=== PATIENT | female | born 1955 | race Caucasian/White ===

== ENCOUNTER → 2016-11-09 | Outpatient (CLI) | payer OTHER ==
--- NOTE | 2016-11-11 09:59 | MM ---
Reason for exam: screening (asymptomatic). Last mammogram was performed 1 year ago. History: Patient is postmenopausal. Took hormonal contraceptives for 6 months beginning at age 19. Physical Findings: A clinical breast exam by your physician is recommended on an annual basis and results should be correlated with mammographic findings. MG Screening Mammo w CAD Bilateral CC and MLO view(s) were taken. Prior study comparison: November 06, 2015, bilateral MG screening mammo w CAD. October 31, 2014, bilateral MG screening mammo w CAD. October 30, 2013, bilateral MG screening mammo w CAD. There are scattered fibroglandular densities. No significant changes when compared with prior studies. ASSESSMENT: Negative, BI-RAD 1 RECOMMENDATION: Routine screening mammogram of both breasts in 1 year.
== END | disposition home or self-care (01) ==
LOC: RADMAMWWP 13:15
PROVIDERS: ATTEND Family Medicine
DX: Z12.31 Encounter for screening mammogram for malignant neoplasm of breast (principal)

== ENCOUNTER → 2017-11-24 | Outpatient (CLI) | payer OTHER ==
--- NOTE | 2017-11-29 13:31 | MM ---
Reason for exam: screening (asymptomatic). Last mammogram was performed 1 year ago. History: Patient is postmenopausal. Took hormonal contraceptives for 6 months beginning at age 19. Physical Findings: A clinical breast exam by your physician is recommended on an annual basis and results should be correlated with mammographic findings. MG Screening Mammo w CAD Bilateral CC and MLO view(s) were taken. Prior study comparison: November 09, 2016, bilateral MG screening mammo w CAD. November 06, 2015, bilateral MG screening mammo w CAD. The breast tissue is heterogeneously dense. This may lower the sensitivity of mammography. No significant changes when compared with prior studies. ASSESSMENT: Benign, BI-RAD 2 RECOMMENDATION: Routine screening mammogram of both breasts in 1 year.
== END | disposition home or self-care (01) ==
LOC: RADMAMWWP 15:25
PROVIDERS: ATTEND Family Medicine
DX: Z12.31 Encounter for screening mammogram for malignant neoplasm of breast (principal)
CPT/HCPCS: 77067

== ENCOUNTER 2018-05-06 14:35 | Inpatient (IN) | payer MEDICARE, OTHER ==
--- NOTE | 2018-05-06 15:08 | XR ---
EXAMINATION TYPE: XR finger RT DATE OF EXAM: 05/06/2018 COMPARISON: NONE HISTORY: Infection third finger for one week with pain. TECHNIQUE: 3 views of right third finger are obtained. FINDINGS: No acute fracture or dislocation is seen. No suspicious cortical destruction or periosteal reaction is seen. Tiny ossific fragment at the ulnar aspect third DIP joint is presumed old avulsion from the middle phalanx with donor site identified. There is mild diffuse soft tissue swelling throug hout the third finger. Incidental note is made of moderate radial narrowing and some ossific formatio n at second DIP joint. IMPRESSION: No radiographic evidence for acute osteomyelitis in the third finger.
--- NOTE | 2018-05-06 16:23 | ED ---
General Adult HPI <Kian Stewart - Last Filed: 05/06/18 19:32> - General Source: patient Mode of arrival: ambulatory Limitations: no limitations <Dea Bo - Last Filed: 05/06/18 20:28> - General Chief complaint: Skin/Abscess/Foreign Body Stated complaint: Infection on finger Time Seen by Provider: 05/06/18 16:13 - History of Present Illness Initial comments: Patient is a 63-year-old female who presents emergency department with complaints of right middle finger discoloration and pain for a bit over a week. She reported that it started as a hangnail. She reports that there was pus draining from it previously but it has become clear drainage. [facility] and was prescribed an antibiotic which she believes was Bactrim. Admits to some numbness of this finger. Denies diabetes or vascular disease. Patient denies any recent fever, chills, shortness of breath, chest pain, back pain, abdominal pain, nausea or vomiting, tingling, headaches or visual changes, or any other complaints. (Dea Bo) - Related Data Home Medications Medication Instructions Recorded Confirmed No Known Home Medications 01/10/15 01/14/15 Allergies Allergy/AdvReac Type Severity Reaction Status Date / Time No Known Allergies Allergy Verified 05/06/18 14:44 Review of Systems ROS Other: All systems not noted in ROS Statement are negative. <Kian Stewart - Last Filed: 05/06/18 19:32> ROS Other: All systems not noted in ROS Statement are negative. <Dea Bo - Last Filed: 05/06/18 20:28> ROS Statement: Those systems with pertinent positive or pertinent negative responses have been documented in the HPI. Past Medical History Additional Past Medical History / Comment(s): hx ulcer History of Any Multi-Drug Resistant Organisms: None Reported Additional Past Surgical History / Comment(s): cataract surgery, surgery for ulcer Past Anesthesia/Blood Transfusion Reactions: No Reported Reaction Past Psychological History: No Psychological Hx Reported Smoking Status: Former smoker Past Alcohol Use History: None Reported Past Drug Use History: None Reported - Past Family History Mother Family Medical History: No Reported History <Dea Bo - Last Filed: 05/06/18 20:28> General Exam Limitations: no limitations General appearance: alert, in no apparent distress Eye exam: Present: normal appearance Respiratory exam: Present: normal lung sounds bilaterally Cardiovascular Exam: Present: regular rate, normal rhythm Extremities exam: Present: full ROM, other (Right middle finger is blue distally ; there is poor cap refill in this finger. No visible drainage.) Neurological exam: Present: alert, oriented X3 <Dea Bo - Last Filed: 05/06/18 20:28> Vital Signs 05/06/18 14:40 Temperature 98.5 F Pulse Rate 86 Respiratory 18 Rate Blood Pressure 133/78 O2 Sat by Pulse 96 Oximetry Medical Decision Making - Lab Data Result diagrams: 05/06/18 18:47 05/06/18 18:47 <Kian Stewart - Last Filed: 05/06/18 19:32> - Lab Data Result diagrams: 05/06/18 18:47 05/06/18 18:47 <Dea Bo - Last Filed: 05/06/18 20:28> - Medical Decision Making I, Murphy Stewart, personally saw and examined the patient. I have reviewed and agree with the PA findings, including all diagnostic interpretations and treatment plans as written unless otherwise stated. I was present for the mejias portions of any procedures performed and the inclusive time noted for any critical care statement. (Kian Stewart) Afebrile here; vital signs within normal limits. No visible abscess. X-ray revealed no evidence for acute osteomyelitis in the third finger. Toradol and morphine (with Zofran) were ordered for pain. Heparin was ordered. EKG was within normal limits. WBC 6.2. Upper extremity CTA was ordered. Patient will be admitted here. Case discussed in detail with attending physician Dr. Stewart. ( Dea Bo) - Lab Data Lab Results 05/06/18 05/06/18 05/06/18 Range/Units 18:47 18:47 18:47 WBC 6.2 (3.8-10.6) k/uL RBC 4.21 (3.80-5.40) m/uL Hgb 13.7 (11.4-16.0) gm/dL Hct 40.3 (34.0-46.0) % MCV 95.8 (80.0-100.0) fL MCH 32.5 (25.0-35.0) pg MCHC 33.9 (31.0-37.0) g/dL RDW 12.6 (11.5-15.5) % Plt Count 323 (150-450) k/uL Neutrophils % 52 % Lymphocytes % 34 % Monocytes % 8 % Eosinophils % 2 % Basophils % 0 % Neutrophils # 3.2 (1.3-7.7) k/uL Lymphocytes # 2.1 (1.0-4.8) k/uL Monocytes # 0.5 (0-1.0) k/uL Eosinophils # 0.1 (0-0.7) k/uL Basophils # 0.0 (0-0.2) k/uL PT 9.9 (9.0-12.0) sec INR 1.0 (<1.2) APTT 27.7 (22.0-30.0) sec Sodium 134 L (137-145) mmol/L Potassium 5.0 (3.5-5.1) mmol/L Chloride 104 (98-107) mmol/L Carbon Dioxide 18 L (22-30) mmol/L Anion Gap 12 mmol/L BUN 19 H (7-17) mg/dL Creatinine 1.12 H (0.52-1.04) mg/dL Est GFR (CKD-EPI)AfAm 60 (>60 ml/min/1.73 sqM) Est GFR (CKD-EPI)NonAf 52 (>60 ml/min/1.73 sqM) Glucose 91 (74-99) mg/dL Calcium 10.0 (8.4-10.2) mg/dL Total Bilirubin 0.5 (0.2-1.3) mg/dL AST 31 (14-36) U/L ALT 34 (9-52) U/L Alkaline Phosphatase 74 (38-126) U/L Troponin I (0.000-0.034) ng/mL Total Protein 7.8 (6.3-8.2) g/dL Albumin 4.6 (3.5-5.0) g/dL 05/06/18 Range/Units 18:47 WBC (3.8-10.6) k/uL RBC (3.80-5.40) m/uL Hgb (11.4-16.0) gm/dL Hct (34.0-46.0) % MCV (80.0-100.0) fL MCH (25.0-35.0) pg MCHC (31.0-37.0) g/dL RDW (11.5-15.5) % Plt Count (150-450) k/uL Neutrophils % % Lymphocytes % % Monocytes % % Eosinophils % % Basophils % % Neutrophils # (1.3-7.7) k/uL Lymphocytes # (1.0-4.8) k/uL Monocytes # (0-1.0) k/uL Eosinophils # (0-0.7) k/uL Basophils # (0-0.2) k/uL PT (9.0-12.0) sec INR (<1.2) APTT (22.0-30.0) sec Sodium (137-145) mmol/L Potassium (3.5-5.1) mmol/L Chloride (98-107) mmol/L Carbon Dioxide (22-30) mmol/L Anion Gap mmol/L BUN (7-17) mg/dL Creatinine (0.52-1.04) mg/dL Est GFR (CKD-EPI)AfAm (>60 ml/min/1.73 sqM) Est GFR (CKD-EPI)NonAf (>60 ml/min/1.73 sqM) Glucose (74-99) mg/dL Calcium (8.4-10.2) mg/dL Total Bilirubin (0.2-1.3) mg/dL AST (14-36) U/L ALT (9-52) U/L Alkaline Phosphatase (38-126) U/L Troponin I <0.012 (0.000-0.034) ng/mL Total Protein (6.3-8.2) g/dL Albumin (3.5-5.0) g/dL Disposition <Kian Stewart - Last Filed: 05/06/18 19:32> Is patient prescribed a controlled substance at d/c from ED?: No <Dea Bo - Last Filed: 05/06/18 20:28> Clinical Impression: Cyanotic fingertip Disposition: ADMITTED IP TO THIS HOSP Referrals: Romel Steen MD [Primary Care Provider] - 1-2 days
[2018-05-06] MEDS ORDERED: KETOROLAC 60 MG/2 ML VIAL IM STA (16:35)
[2018-05-06] MEDS ORDERED: HEPARIN SODIUM,PORCINE 5,000 UNIT/ML 1 ML VIAL IV STA (18:12)
[2018-05-06] MEDS ORDERED: ONDANSETRON 4 MG/2 ML VIAL IVP STA (18:44)
[2018-05-06] MEDS ORDERED: MORPHINE SULFATE 4 MG/ML SYRINGE IV STA (18:44)
[2018-05-06 19:10] LABS: Basophils % (A) 0 %; Eosinophils # (A) 0.1 k/uL (0-0.7); Eosinophils % (A) 2 %; HCT 40.3 % (34.0-46.0); HGB 13.7 gm/dL (11.4-16.0); Lymphocytes # (A) 2.1 k/uL (1.0-4.8); Lymphocytes % (A) 34 %; MCH 32.5 pg (25.0-35.0); MCHC 33.9 g/dL (31.0-37.0); MCV 95.8 fL (80.0-100.0); Mean Platelet Volume 7.7; Monocytes # (A) 0.5 k/uL (0-1.0); Monocytes % (A) 8 %; Neutrophils # (A) 3.2 k/uL (1.3-7.7); Neutrophils % (A) 52 %; Platelet Count 323 k/uL (150-450); RBC 4.21 m/uL (3.80-5.40); RDW 12.6 % (11.5-15.5); WBC 6.2 k/uL (3.8-10.6)
[2018-05-06] MEDS: HEPARIN SOD,PORK IN 0.45% NACL 25,000 UNIT in 0.45% NACL 1 500ML.BAG IV SCH (19:10)
[2018-05-06 19:17] LABS: Albumin 4.6 g/dL (3.5-5.0); Total Bilirubin 0.5 mg/dL (0.2-1.3); Total Protein 7.8 g/dL (6.3-8.2)
[2018-05-06 19:38] LABS: Partial Thromboplastin Time 27.7 sec (22.0-30.0); Prothrombin Time 9.9 sec (9.0-12.0)
[2018-05-06] MEDS ORDERED: ACETAMINOPHEN TAB 325 MG TAB PO PRN (20:18)
[2018-05-06] MEDS ORDERED: NALOXONE 0.4 MG/ML 1 ML VIAL IV PRN (20:18)
--- NOTE | 2018-05-06 20:36 | CONS ---
CONSULTATION This is a 63-year-old female the patient came to the [facility] ER with a history of right hand middle finger discoloration involving the distal phalanx of the right hand. The patient had this discoloration for the last 10 days. Patient went to outpatient clinic for evaluation. Patient was put on antibiotic and her pain and discoloration is getting worse, involving the tip of the right hand middle finger which is cold and tender. The rest of the fingers in the hands are normal color with good capillary refill. MEDICAL HISTORY: No history of diabetes, hypertension. PERSONAL HISTORY: Patient is a has no allergy. Patient is a smoker for a long time. PAST MEDICAL HISTORY: Medical history: No history of coronary artery disease, diabetes, arrhythmia of the heart. PHYSICAL EXAMINATION: NECK: Supple. Trachea central. CHEST: Clear to auscultation. First and second sounds normal. ABDOMEN: Soft. Vascular exam showed femoral pulses are palpable. Axillary, brachial and radial artery palpable on the right hand and the patient has a discoloration of the right hand middle finger. PLAN: The patient will be admitted for anticoagulation and we will do this CTA. CT of the arch of aorta and right arm including subclavian, axillary, brachial, radial, ulnar artery and palm of the arch since this ischemic changes for the last 10 days. Prognosis guarded. She will lose top of middle finger. We will wait for demarcation. We will ask Dr. Knowles, hand surgeon to evaluate in case she needs amputation. MMODL / IJN: [id number] /
--- NOTE | 2018-05-06 20:38 | CT ---
EXAMINATION TYPE: CT angio upper extremity RT DATE OF EXAM: 05/06/2018 8:08 PM COMPARISON: None HISTORY: Discoloration to right 3rd distal phalange CT DLP: 553.4 mGycm Automated exposure control for dose reduction was used. TECHNIQUE: Performed with IV Contrast, patient injected with 100 mL of Isovue 300. . Multiple axial sections were obtained from the base of the neck to the tip of the right fingers with intravenous contrast. There are 3-D post processed images. FINDINGS: There is arterial flow in the innominate artery. There is arterial flow in the right subclavian arter y and axillary artery. There is arterial flow in the brachial artery, radius and ulna arteries. There is arterial flow in the radius and ulna arteries at the wrist. There is arterial opacification of th e palmar arch. There is arterial flow in the digital arteries of the hand. The exam is technically li mited for evaluation of the digital branches at the distal and middle phalanges. There is no evidence of arterial stenosis or dissection. There is no evidence of aneurysm. IMPRESSION: NEGATIVE CT ANGIOGRAM OF THE RIGHT ARM AND HAND. NO EVIDENCE OF STENOSIS.
[2018-05-06 22:21] VITALS: BMI 21.0
[2018-05-07] MEDS: SODIUM CHLORIDE 0.9% 1,000 ML IV SCH ×4 (02:14→21:17)
[2018-05-07 07:56] LABS: Basophils % (A) 1 %; Eosinophils % (A) 1 %; HCT 36.9 % (34.0-46.0); HGB 12.3 gm/dL (11.4-16.0); Lymphocytes # (A) 1.5 k/uL (1.0-4.8); Lymphocytes % (A) 28 %; MCH 32.8 pg (25.0-35.0); MCHC 33.4 g/dL (31.0-37.0); MCV 98.2 fL (80.0-100.0); Mean Platelet Volume 7.5; Monocytes # (A) 0.3 k/uL (0-1.0); Monocytes % (A) 6 %; Neutrophils # (A) 3.1 k/uL (1.3-7.7); Neutrophils % (A) 60 %; Platelet Count 285 k/uL (150-450); RBC 3.76 m/uL (3.80-5.40); RDW 12.7 % (11.5-15.5); WBC 5.2 k/uL (3.8-10.6)
[2018-05-07 07:58] LABS: Albumin 3.5 g/dL (3.5-5.0); Calcium 8.8 mg/dL (8.4-10.2); Potassium 4.8 mmol/L (3.5-5.1); Total Bilirubin 0.4 mg/dL (0.2-1.3); Total Protein 6.3 g/dL (6.3-8.2)
--- NOTE | 2018-05-07 08:55 | PN ---
PROGRESS NOTE 63-year-old female, she came yesterday to the ER with right hand middle finger discoloration with the cold feeling. The patient had this problem for the last 10 days, so we did a CT angiogram of the subclavian and brachial radial arteries were visualized. The exam is technically limited for evaluation of the digit branches at the distal and middle phalanges. On examination today, the patient's right hand middle finger has discoloration is completely gone after heparinization. There is slight redness noted under the nail bed and around the skin area. We will put her on IV antibiotic and continue with heparin. Thank you. MMODL / IJN: [id number] /
[2018-05-07] MEDS: ceFAZolin 1,000 MG in DEXTROSE/WATER 1 50ML.BAG IVPB SCH ×3 (12:00→22:28)
--- NOTE | 2018-05-07 20:19 | HP ---
HISTORY AND PHYSICAL DATE OF ADMISSION: 05/06/2018. DATE OF SERVICE: 05/07/2018. PRESENTING COMPLAINT: Right middle finger distal part pain. HISTORY OF PRESENTING COMPLAINT: This is a pleasant 63-year-old patient who follows with Dr. Steen. Rather unremarkable past medical history. About 10 days ago she started off with a hangnail in the right middle finger and then it became infected. The patient also drained some pus. The patient decided to go down to [facility] where she was told to do Epsom salt moist compression. The patient's tip became discolored, she decided to come to the ER. There were no other fingers involved. The patient does not complain of any claudication or cramps and does not any have any other vascular history. The patient's vascular risk factors also did not include any hypertension, diabetes, or hyperlipidemia. From the ER there was a concern about this being a vascular event. Hence, Dr. Giraldo was consulted and ordered upper extremity CTA that came back to be unremarkable. He empirically put the patient on IV heparin in the meantime. The patient's daughter was at the bedside when I saw this patient this afternoon. Discussed that she is much improved. Pain and tenderness is also improving. The patient was also started on IV Ancef. REVIEW OF SYSTEMS: CONSTITUTIONAL: None. HEENT: None. RESPIRATORY: None. CARDIOVASCULAR: None. GASTROINTESTINAL: None. GENITOURINARY: None. MUSCULOSKELETAL: None. DERMATOLOGICAL: Unremarkable. PSYCHIATRY: None. LYMPHATICS: None. PSYCHIATRY: None. NEUROLOGIC: None. PAST MEDICAL HISTORY: History of ulcers. PAST SURGICAL HISTORY: Cataract surgery, surgery for ulcer. SOCIAL HISTORY: The patient smoked less than a cigarette a day. Has done a few cigarettes a day for most of her life. No alcohol. Lives by herself. FAMILY HISTORY: Reviewed, noncontributory to presentation. HOME MEDICATIONS: 1. PreserVision soft gel 1 capsule p.o. b.i.d. 2. Bactrim DS 1 tablet p.o. b.i.d. 3. Prilosec 20 mg p.o. daily p.r.n. 4. Multivitamin 1 tablet p.o. daily. 5. Bactrim DS 2000 units p.o. daily. ALLERGIES: None. PHYSICAL EXAMINATION: VITAL SIGNS: Vital signs on presentation, temperature 98.5, pulse 86, respiratory rate 18, blood pressure 133/78, pulse ox 96% on room air. GENERAL APPEARANCE: Thin built, sitting up, awake, comfortable. EYES: Pupils equal. Conjunctivae normal. HEENT: External appearance of nose and ears normal. Oral cavity normal. NECK: JVD not raised. Mass not palpable. Respiratory effort normal. LUNGS: Clear. CARDIOVASCULAR: 1st and 2nd sounds. No edema. ABDOMEN: Soft, nontender. Liver and spleen not palpable. LYMPHATIC: No lymph node palpables in the neck or axillae. PSYCHIATRY: Alert and oriented x3. Mood and affect normal. NEUROLOGIC: Pupils equal. Cranial nerves grossly intact. Power and sensation grossly intact. EXTREMITIES: Right hand middle finger showing some tenderness and inflammation around the anterior part of the nail bed where the hangnail was initially present. The patient otherwise has a good capillary. ASSESSMENT: 1. This is a patient who 10 days ago started off with a garage door hanger that became infected, was actually draining some pus. The patient's distal finger also got discolored, mostly likely from local inflammation vascular congestion. These are more features of infection rather than acute ischemic event. The patient does not have any other ischemia presentation anywhere else with minimal cardiac risk factors. There is no hypertension, no hyperlipidemia, no diabetes. The patient is a minimal smoker. Embolic disease cannot be ruled out, but the picture was more compatible with infection. 2. Chronic nicotine dependence. Patient only smokes less than a cigarette a day. 3. IV heparin monitoring. PLAN: Will keep the IV heparin until the patient is further followed by Dr. Giraldo. In the meantime will do warm moist compresses. The patient is already running on IV Ancef. Will add naproxen for anti-inflammatory affect. Will add baby aspirin. I do not think at this point, we are dealing with ischemia. I will discuss this further with Dr. Giraldo. Did discuss this with the patient and daughter. Questions were answered. MMODL / IJN: [id number] /
[2018-05-07] MEDS: HEPARIN SOD,PORK IN 0.45% NACL 25,000 UNIT in 0.45% NACL 1 500ML.BAG IV SCH (22:13)
[2018-05-07] MEDS: FAMOTIDINE 20 MG TAB PO SCH (22:21)
[2018-05-08] MEDS: NAPROXEN 250 MG TAB PO SCH ×3 (00:09→18:19)
[2018-05-08] MEDS: ASPIRIN 81 MG PO SCH ×3 (00:13→21:12)
[2018-05-08] MEDS: NICOTINE 7MG/24HR PATCH TRANSDERM SCH ×2 (00:13→08:19)
[2018-05-08] MEDS: ceFAZolin 1,000 MG in DEXTROSE/WATER 1 50ML.BAG IVPB SCH ×4 (03:55→21:12)
[2018-05-08 08:12] LABS: Anion Gap 2 mmol/L; Blood Urea Nitrogen 9 mg/dL (7-17); Carbon Dioxide 14 mmol/L (22-30); Chloride 125 mmol/L (98-107); Glucose 60 mg/dL (74-99); Potassium 2.9 mmol/L (3.5-5.1); Sodium 141 mmol/L (137-145)
[2018-05-08] MEDS: FAMOTIDINE 20 MG TAB PO SCH ×2 (08:19→21:12)
[2018-05-08 08:47] LABS: Basophils % (A) 0 %; Eosinophils # (A) 0.1 k/uL (0-0.7); Eosinophils % (A) 2 %; HCT 26.7 % (34.0-46.0); Hypochromasia Slight; Lymphocytes # (A) 1.4 k/uL (1.0-4.8); Lymphocytes % (A) 41 %; MCH 31.7 pg (25.0-35.0); MCHC 31.4 g/dL (31.0-37.0); Mean Platelet Volume 7.9; Monocytes # (A) 0.3 k/uL (0-1.0); Monocytes % (A) 7 %; Neutrophils # (A) 1.6 k/uL (1.3-7.7); Neutrophils % (A) 46 %; Platelet Count 180 k/uL (150-450); RBC 2.64 m/uL (3.80-5.40); RDW 12.8 % (11.5-15.5); WBC 3.5 k/uL (3.8-10.6)
[2018-05-08 08:52] LABS: HGB 8.4 gm/dL (11.4-16.0)
[2018-05-08] MEDS ORDERED: POTASSIUM CHLORIDE ER 20 MEQ TAB.ER PO STA (08:56)
[2018-05-08] MEDS ORDERED: POTASSIUM CHLORIDE ER 20 MEQ TAB.ER PO ONE (11:00)
[2018-05-08] MEDS ORDERED: CALCIUM GLUCONATE 2,000 MG in SODIUM CHLORIDE 0.9% 100 ML IVPB ONE (11:31)
--- NOTE | 2018-05-08 14:02 | PN ---
PROGRESS NOTE The patient is a 63-year-old white female. Patient came with to the emergency room with right hand middle finger ischemic and patient started on heparin. On examination today, the middle finger is warm and no evidence of ischemic changes noted. The patient had a CT which was normal. There is still some redness noted around the nail bed, but no fluctuation noted. We will continue with IV antibiotic. We will hold the heparin. MMODL / IJN: [id number] /
[2018-05-08] MEDS ORDERED: MAGNESIUM OXIDE 400 MG TAB PO SCH (16:00)
[2018-05-08] MEDS ORDERED: CALCIUM CARBONATE 500 MG CHEWABLE PO SCH (16:00)
[2018-05-08 16:53] LABS: Ionized Calcium 5.3 mg/dL (4.5-5.3)
[2018-05-08 16:59] LABS: Anion Gap 6 mmol/L; Blood Urea Nitrogen 15 mg/dL (7-17); Calcium 9.4 mg/dL (8.4-10.2); Carbon Dioxide 21 mmol/L (22-30); Chloride 112 mmol/L (98-107); Glucose 99 mg/dL (74-99); Magnesium 2.1 mg/dL (1.6-2.3); Sodium 139 mmol/L (137-145)
[2018-05-08 17:00] LABS: Potassium 5.6 mmol/L (3.5-5.1)
[2018-05-08] MEDS: VERAPAMIL 40 MG TAB PO SCH ×2 (19:34→21:12)
[2018-05-08] MEDS: MAGNESIUM SULFATE-D5W PMX 1 GM in DEXTROSE/WATER 1 100ML.BAG IVPB SCH (19:35)
[2018-05-08] MEDS: SODIUM CHLORIDE 0.9% 1,000 ML IV SCH (19:37)
--- NOTE | 2018-05-08 22:35 | PN ---
PROGRESS NOTE DATE OF SERVICE: 05/08/2018 PRESENTING COMPLAINT: Discoloration right hand middle finger. INTERVAL HISTORY: This patient admitted with what initially appeared to be paronychia, and there was a concern about local vascular disorder. On close questioning, patient does inform that in the Winter, her hand and feet really get cold. She has to use some extra layer of socks. The patient has been on IV heparin. I did talk to Dr. Giraldo this morning. The patient's daughter at the bedside. Some pain and discomfort is present. No fever. No chills. REVIEW OF SYSTEMS: Done for constitutional, cardiovascular, GI, pulmonary and relevant findings as above. CURRENT MEDICATIONS: Reviewed that include IV Ancef and IV heparin was discontinued. PHYSICAL EXAMINATION: VITAL SIGNS: Temperature 98.4, pulse 67, respiratory rate 16, blood pressure 94/59, pulse ox 96% on room air. GENERAL APPEARANCE: Sitting up, awake. EYES: Pupils equal. Conjunctivae normal. HEENT: External appearance of nose and ears normal. Oral cavity normal. NECK: JVD not raised. Mass not palpable. RESPIRATORY: Effort normal. LUNGS are clear. CARDIOVASCULAR: 1st and 2nd sounds normal. No edema. ABDOMEN: Soft, nontender. Liver and spleen not palpable. PSYCHIATRY: Alert and oriented times three. Mood and affect normal. EXTREMITIES: There is discoloration in the right hand 3rd finger just proximal to the nail. Also examined patient's feet again and there is some discoloration distally. Bluish, of both the feet of 1st 3 toes. ASSESSMENT: 1. 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 This is rather classical that the patient has smoked for a long time very small amount and patient does not have any other cardiac risk factors, which is more classical of this presentation. 2. Acute paronychia. 3. Chronic nicotine dependence, patient smokes very little. 4. IV heparin now discontinued. PLAN: I had a very lengthy talk with the patient and daughter and also discussed with Dr. Giraldo again. At this point we will add verapamil for the treatment of same. Increase aspirin to 81 mg twice a day. IV heparin was discontinued. The patient hopefully can be discharged tomorrow. Long-term discussion was also care was discussed with the patient and daughter and Dr. Navas. Total time spent today was about 45 minutes with over 30 minutes of discussion. MMODL / IJN: [id number] /
[2018-05-09] MEDS: NAPROXEN 250 MG TAB PO SCH ×3 (00:23→15:05)
[2018-05-09] MEDS: ceFAZolin 1,000 MG in DEXTROSE/WATER 1 50ML.BAG IVPB SCH ×3 (03:11→14:30)
[2018-05-09] MEDS: NICOTINE 7MG/24HR PATCH TRANSDERM SCH (07:59)
[2018-05-09] MEDS: VERAPAMIL 40 MG TAB PO SCH ×2 (08:03→15:21)
[2018-05-09] MEDS: ASPIRIN 81 MG PO SCH (08:03)
[2018-05-09] MEDS: FAMOTIDINE 20 MG TAB PO SCH (08:03)
[2018-05-09 08:13] LABS: Ionized Calcium 5.5 mg/dL (4.5-5.3)
[2018-05-09 08:15] LABS: Anion Gap 6 mmol/L; Blood Urea Nitrogen 13 mg/dL (7-17); Calcium 9.3 mg/dL (8.4-10.2); Carbon Dioxide 22 mmol/L (22-30); Chloride 112 mmol/L (98-107); Glucose 83 mg/dL (74-99); Magnesium 1.8 mg/dL (1.6-2.3); Potassium 5.5 mmol/L (3.5-5.1); Sodium 140 mmol/L (137-145)
[2018-05-09] MEDS ORDERED: ENOXAPARIN 40 MG/0.4 ML SYRINGE SQ SCH (09:00)
[2018-05-09] MEDS ORDERED: SODIUM POLYSTYRENE SULFONATE 15 GM/60 ML BOTTLE PO STA (11:49)
[2018-05-09 15:08] VITALS: BP 106/71; PULSE 73; RESP 16; TEMP 98.2
--- NOTE | 2018-05-10 07:58 | DS ---
DISCHARGE SUMMARY DATE OF ADMISSION: 05/06/2018 DATE OF DISCHARGE: 05/09/2018 FINAL DIAGNOSES: 1. Acute manifestation of thromboangiitis obliterans in a patient that is a smoker. 2. Acute paronychia right hand middle finger. 3. Chronic nicotine dependence. Patient smokes cigarettes. 4. IV heparin monitoring. 5. Raynaud phenomena. HOSPITAL COURSE: This patient presented with paronychia of the right hand middle finger, also with bluish discoloration with some borderline marking. Patient was found to have also cyanotic toes. The patient's peripheral pulses are good. The patient does really get cold feet in the mo and Raynaud phenomena. The patient is diagnosed to have thromboangiitis obliterans. Paronychia was treated with IV Ancef and patient was initially treated with IV heparin. Patient was put on verapamil for the same. Today care was discussed at length with Dr. Giraldo and patient and the patient's daughter. Questions were answered. PHYSICAL EXAMINATION: On examination, temperature 98.2, pulse 73, respirations 16, blood pressure 106/71. LUNGS: Fair entry. CARDIOVASCULAR: First and second sounds normal. Bluish discoloration of the feet, toes on the medial 3 and patient's paronychia is improving. LABS: Hemoglobin 8.4. Potassium 5.5, Kayexalate was given. The patient also had a upper extremity CT that was unremarkable. Discussion and discharge planning more than 35 minutes. DISCHARGE MEDICATIONS: 1. Multivitamin 1 tablet p.o. daily. 2. Prilosec 20 mg p.o. daily p.r.n. 3. PreserVision Areds 2 one capsule p.o. b.i.d. 4. Aspirin 81 mg p.o. b.i.d. 5. Naproxen 250 mg t.i.d. 14 tablets. 6. Nicotine 7 mg patch daily. 7. Bactrim DS 1 tablet p.o. b.i.d. 8. Isoptin 40 mg p.o. t.i.d. Follow up with Dr. Steen in 3 days. Follow up with Dr. Giraldo. on 05/16/2018. BMP on 05/11/2018, results to Dr. Steen. Also patient told to take a low potassium diet for 3 days. MMODL / IJN: [id number] /
== END 2018-05-09 15:44 | disposition home or self-care (01) | DRG 301 ==
LOC: EC 14:35 → 4SSUR 20:34
PROVIDERS: ADMIT Hospitalist; ATTEND Hospitalist
DX: I73.1 Thromboangiitis obliterans [Buerger's disease] (principal); I73.00 Raynaud's syndrome without gangrene; L03.011 Cellulitis of right finger; F17.210 Nicotine dependence, cigarettes, uncomplicated; Z71.6 Tobacco abuse counseling; Z79.899 Other long term (current) drug therapy; Z98.49 Cataract extraction status, unspecified eye; Z87.11 Personal history of peptic ulcer disease
CPT/HCPCS: 36415; 80048; 80053; 82330; 83735; 84484; 85025; 85610; 85730; 96365; 96366; 96372; 96375; 96376; 99285

== ENCOUNTER → 2018-05-30 | Outpatient (CLI) | payer MEDICARE, OTHER ==
--- NOTE | 2018-05-30 16:52 | BD ---
EXAMINATION TYPE: Axial Bone Density DATE OF EXAM: 05/30/2018 COMPARISON: NONE CLINICAL HISTORY: osteoporosis Height: 5'1 Weight: 113 FRAX RISK QUESTIONS: History of Fracture in Adulthood: y Secondary Osteoporosis: RISK FACTORS HISTORY OF: Postmenopausal woman: y MEDICATIONS: Additional Medications: blood pressure, Additional History: EXAM MEASUREMENTS: Bone mineral densitometry was performed using the [employer] System. Bone mineral density as measured about the Lumbar spine is: ----- L1-L4(G/cm2): 0.796 T Score Values are as follows: ----- L2: -3.5 ----- L3: -2.0 ----- L4: -3.7 ----- L1-L4: -3.2 Bone mineral density about the R hip (g/cm2): 0.663 Bone mineral density about the L hip (g/cm2): 0.686 T Score values are as follows: -----R Neck: -2.7 -----L Neck: -2.5 -----R Total: -3.3 -----L Total: -3.1 IMPRESSION: Osteoporosis (T Score less than -2.5). There is increased fracture risk and therapy is usually indicated based on age. Re-Screen 1-2 years. NOTE: T-SCORE=SD OF THE YOUNG ADULT MEAN.
== END ==
LOC: RADBDWWP 13:21
PROVIDERS: ATTEND Family Medicine
DX: M81.0 Age-related osteoporosis without current pathological fracture (principal)
CPT/HCPCS: 77080

== ENCOUNTER → 2018-08-09 | Outpatient (CLI) | payer MEDICARE, OTHER | END | disposition home or self-care (01) | LOC: CPPFTMAIN 13:26 | PROVIDERS: ATTEND Internal Medicine Rheumatology | DX: J44.9 Chronic obstructive pulmonary disease, unspecified (principal); M34.9 Systemic sclerosis, unspecified | CPT/HCPCS: 94060; 94726; 94729 ==

== ENCOUNTER → 2018-08-15 | Outpatient (CLI) | payer MEDICARE, OTHER ==
--- NOTE | 2018-08-16 11:41 | ECHOF ---
Referral Reason:M34.9 Systemic sclerosis, unspecified MEASUREMENTS -------- HEIGHT: 157.5 cm WEIGHT: 52.2 kg BP: RVIDd: 2.5 cm (< 3.3) IVSd: 0.9 cm (0.6 - 1.1) LVIDd: 3.3 cm (3.9 - 5.3) LVPWd: 1.0 cm (0.6 - 1.1) IVSs: 1.5 cm LVIDs: 1.8 cm LVPWs: 1.6 cm LAESV Index (A-L): 19.97 ml/m Ao Diam: 2.9 cm (2.0 - 3.7) AV Cusp: 1.5 cm (1.5 - 2.6) LA Diam: 3.0 cm (2.7 - 3.8) MV EXCURSION: 15.336 mm (> 18.000) MV EF SLOPE: 93 mm/s (70 - 150) EPSS: 0.4 cm MV E Vinh: 0.71 m/s MV DecT: 209 ms MV A Vinh: 0.87 m/s MV E/A Ratio: 0.82 AR PHT: 340 ms RAP: 5.00 mmHg RVSP: 37.96 mmHg FINDINGS -------- Sinus rhythm. This was a technically good study. The left ventricular size is normal. Left ventricular wall thickness is normal. Overall left vent ricular systolic function is normal with, an EF between 55 - 60 %. The right ventricle is normal in size. Normal LA size by volume 22+/-6 ml/m2. The right atrium is normal in size. Aortic valve is trileaflet and is mildly thickened. There is mild aortic regurgitation. The mitral valve leaflets are mildly thickened. Mild mitral regurgitation is present. Mild tricuspid regurgitation present. The right ventricular systolic pressure, as measured by Doppl er, is 37.96mmHg. Pulmonic valve appears structurally normal. The aortic root size is normal. Normal inferior vena cava with normal inspiratory collapse consistent with estimated right atrial pre ssure of 5 mmHg. The pericardium is normal. CONCLUSIONS -------- 1. Sinus rhythm. 2. This was a technically good study. 3. The left ventricular size is normal. 4. Left ventricular wall thickness is normal. 5. Overall left ventricular systolic function is normal with, an EF between 55 - 60 %. 6. The right ventricle is normal in size. 7. Normal LA size by volume 22+/-6 ml/m2. 8. The right atrium is normal in size. 9. There is mild aortic regurgitation. 10. The mitral valve leaflets are mildly thickened. 11. Mild mitral regurgitation is present. 12. Mild tricuspid regurgitation present. 13. The right ventricular systolic pressure, as measured by Doppler, is 37.96mmHg. 14. Pulmonic valve appears structurally normal. 15. The aortic root size is normal. 16. Normal inferior vena cava with normal inspiratory collapse consistent with estimated right atrial pressure of 5 mmHg. 17. The pericardium is normal. PAPER MILL MANAGER: Kathia Khan RDCS
== END | disposition home or self-care (01) ==
LOC: RADECHMAIN 15:03
PROVIDERS: ATTEND Internal Medicine Rheumatology
DX: I08.3 Combined rheumatic disorders of mitral, aortic and tricuspid valves (principal); M34.9 Systemic sclerosis, unspecified
CPT/HCPCS: 93306

== ENCOUNTER → 2022-02-13 | Outpatient (CLI) | payer MEDICARE, OTHER ==
--- NOTE | 2022-02-13 15:50 | BD ---
EXAMINATION TYPE: Axial Bone Density DATE OF EXAM: 02/13/2022 COMPARISON: NONE CLINICAL HISTORY: 67 years year old Female. ICD-10 CODE: M81.0 AGE-RELATED OSTEOPOROSIS Height: 62 Weight: 111.9 FRAX RISK QUESTIONS: Alcohol (3 or more units per day): no Family History (Parent hip fracture): no Glucocorticoids (More than 3mos): no (Ex: prednisone, prednisolone, methylprednisolone, dexamethasone, and hydrocortisone). History of Fracture in Adulthood: yes Secondary Osteoporosis: 1. Type 1 Diabetes: no 2. Hyperthyroidism: no 3. Menopause before 45: yes 4. Malnutrition: no 5. Chronic liver disease: no Rheumatoid Arthritis: no Current Tobacco Use: no RISK FACTORS HISTORY OF: Surgery to Spine/Hip(right/left)/Wrist (right/left): no Family History of Osteoporosis: no Active: yes Diet low in dairy products/other sources of calcium: yes Postmenopausal woman: yes Lost more than 2 inches in height since high school: no MEDICATIONS: Osteoporosis Medications: alendronate How Lon years Additional Medications: Additional History: EXAM MEASUREMENTS: Bone mineral densitometry was performed using the 5by System. Bone mineral density as measured about the Lumbar spine is: ----- L1-L4(G/cm2): 0.843 T Score Values are as follows: ----- L1: -3.5 ----- L2: -3.2 ----- L3: -1.4 ----- L4: -3.4 ----- L1-L4: -2.8 Bone mineral density : previous unavailable Bone mineral density about the R hip (g/cm2): 0.715 Bone mineral density about the L hip (g/cm2): 0.686 T Score values are as follows: -----R Neck: -2.3 -----L Neck: -2.5 -----R Total: -3.2 -----L Total: -3.0 Bone mineral density : previous unavailable FRAX%s: The graph provided illustrates a 20.5% chance for a major osteoporotic fx and a 5.5% chance f or the hips probability for fx in 10 years time. IMPRESSION: Osteoporosis (T Score less than -2.5). There is increased fracture risk and therapy is usually indicated based on age. Re-Screen 1-2 years. NOTE: T-SCORE=SD OF THE YOUNG ADULT MEAN.
== END | disposition home or self-care (01) ==
LOC: RADBDWWP 15:25
PROVIDERS: ATTEND Family Medicine
DX: M81.0 Age-related osteoporosis without current pathological fracture (principal)
CPT/HCPCS: 77080

== ENCOUNTER → 2022-09-03 | Outpatient (CLI) | payer MEDICARE, OTHER ==
--- NOTE | 2022-09-04 10:25 | CA ---
Transthoracic Echo Report Name: Lyubov Hanna Age: 67 Gender: F : 1955 Exam Date: 09/03/2022 13:12 Exam Location: [facility] Ht (in): 62 Wt (lb): 117 Ordering Physician: Shyla Kaur MD Attending/Referring Phys: Vincent Mansfield;[id number] [facility] Krystal Forrester RDCS Procedure CPT: Indications: M34.9 Cardiac Hx: Technical Quality: Fair Contrast 1: Total Dose (mL): Contrast 2: Total Dose (mL): MEASUREMENTS (Male / Female) Normal Values 2D ECHO LV Diastolic Diameter PLAX 3.3 cm 4.2 - 5.9 / 3.9 - 5.3 cm LV Systolic Diameter PLAX 2.0 cm IVS Diastolic Thickness 1.1 cm 0.6 - 1.0 / 0.6 - 0.9 cm LVPW Diastolic Thickness 1.2 cm 0.6 - 1.0 / 0.6 - 0.9 cm LV Relative Wall Thickness 0.7 RV Internal Dim ED PLAX 3.3 cm M-MODE Aortic Root Diameter MM 2.3 cm LA Systolic Diameter MM 3.9 cm LA Ao Ratio MM 1.7 AV Cusp Separation MM 1.5 cm DOPPLER AV Peak Velocity 148.4 cm/s AV Peak Gradient 8.8 mmHg AV Mean Velocity 104.0 cm/s AV Mean Gradient 4.8 mmHg AV Velocity Time Integral 27.8 cm AI Peak Velocity 389.3 cm/s AI Peak Gradient 60.6 mmHg AI Pressure Half Time 578.4 ms LVOT Peak Velocity 139.7 cm/s LVOT Peak Gradient 7.8 mmHg MV Area PHT 2.8 cm??? Mitral E Point Velocity 65.8 cm/s Mitral A Point Velocity 90.1 cm/s Mitral E to A Ratio 0.7 MV Deceleration Time 267.4 ms MV E' Velocity 11.3 cm/s Mitral E to MV E' Ratio 5.8 TR Peak Velocity 277.0 cm/s TR Peak Gradient 30.7 mmHg Right Ventricular Systolic Press 35.7 mmHg FINDINGS Left Ventricle Mildly increased septal wall thickness. Mildly increased posterior wall thickness. Normal left ventricular systolic function with no obvious regional wall motion abnormalities. Left ventricular ejection fraction is estimated at 5-60 %. Right Ventricle Normal right ventricular size and function. Mild pulmonary hypertension. Right Atrium Normal right atrial size. Left Atrium Normal left atrial size. Mitral Valve Structurally normal mitral valve. Mild mitral annular calcification. Mild mitral regurgitation. Aortic Valve Trileaflet aortic valve. Diffuse thickening (sclerosis) of the aortic valve cusps without reduced excursion. Aortic valve sclerosis. No aortic stenosis. Mild aortic regurgitation. Tricuspid Valve Structurally normal tricuspid valve. Mild tricuspid regurgitation. Pulmonic Valve Structurally normal pulmonic valve. Trace pulmonic regurgitation. Pericardium No pericardial effusion. Aorta Normal size aortic root and proximal ascending aorta. CONCLUSIONS Normal biventricular systolic function Normal mitral valve leaflets with mild MR Aortic sclerosis with no stenosis but with mild regurgitation Previewed by: Dr. Justin Vasquez MD (Electronically Signed) Final Date: 04 September 2022 10:24
== END | disposition home or self-care (01) ==
LOC: RADECHMAIN 13:58
PROVIDERS: ATTEND Internal Medicine Rheumatology
DX: I35.8 Other nonrheumatic aortic valve disorders (principal); M34.9 Systemic sclerosis, unspecified
CPT/HCPCS: 93306

== ENCOUNTER 2023-04-12 12:46 | Inpatient (IN) | payer MEDICARE, OTHER ==
[2023-04-12] MEDS ORDERED: MORPHINE SULFATE 4 MG/ML SYRINGE IM STA (13:24)
--- NOTE | 2023-04-12 13:26 | ED ---
General Adult HPI - General Chief complaint: Fall Stated complaint: Fall-hip injury Time Seen by Provider: 04/12/23 12:53 Source: patient, EMS, RN notes reviewed Mode of arrival: EMS Limitations: no limitations - History of Present Illness Initial comments: Patient is a pleasant 68-year-old female presenting to the emergency department with a fall. Patient was seen by her chair when she slipped and fell. Patient landed on her left hip. Patient does have discomfort of her left hip since that time. Discomfort is greatly increased with any movement of the left hip. No head injury or loss of consciousness. Patient states she did feel slightly di zzy earlier. - Related Data Home Medications Medication Instructions Recorded Confirmed Cholecalciferol (Vitamin D3) 2,000 unit PO DAILY 05/06/18 05/06/18 [Vitamin D3] Multivitamins, Thera [Multivitamin 1 tab PO DAILY 05/06/18 05/06/18 (formulary)] Omeprazole Magnesium [PriLOSEC OTC] 20 mg PO DAILY PRN 05/06/18 05/06/18 Vit C/E/Zn/Coppr/Lutein/Zeaxan 1 cap PO BID 05/06/18 05/06/18 [Preservision Areds 2 Softgel] Previous Rx's Medication Instructions Recorded Aspirin 81 mg PO BID chew 05/09/18 Naproxen [Naprosyn] 250 mg PO TID #14 tab 05/09/18 Nicotine 7Mg/24Hr Patch [Habitrol] 1 patch TRANSDERM DAILY #30 patch 05/09/18 Sulfamethox-Tmp 800-160Mg [Bactrim 1 tab PO BID #20 tab 05/09/18 DS 800-160 mg] Verapamil [Isoptin] 40 mg PO TID #90 tab 05/09/18 Allergies Allergy/AdvReac Type Severity Reaction Status Date / Time No Known Allergies Allergy Verified 04/12/23 13:00 Review of Systems ROS Statement: Those systems with pertinent positive or pertinent negative responses have been documented in the HPI. ROS Other: All systems not noted in ROS Statement are negative. Constitutional: Denies: fever Eyes: Denies: eye pain ENT: Denies: ear pain Respiratory: Denies: cough, dyspnea Cardiovascular: Denies: chest pain Gastrointestinal: Denies: abdominal pain Genitourinary: Denies: dysuria Musculoskeletal: Reports: as per HPI Neurological: Denies: headache, weakness Past Medical History Additional Past Medical History / Comment(s): hx ulcer History of Any Multi-Drug Resistant Organisms: None Reported Additional Past Surgical History / Comment(s): cataract surgery, surgery for ulcer Past Anesthesia/Blood Transfusion Reactions: No Reported Reaction Past Psychological History: No Psychological Hx Reported Past Alcohol Use History: None Reported Past Drug Use History: None Reported - Past Family History Mother Family Medical History: No Reported History General Exam Limitations: no limitations General appearance: alert, in no apparent distress Head exam: Present: atraumatic, normocephalic Eye exam: Present: normal appearance, PERRL, EOMI ENT exam: Present: normal oropharynx Neck exam: Present: normal inspection. Absent: tenderness Respiratory exam: Present: normal lung sounds bilaterally Cardiovascular Exam: Present: regular rate, normal rhythm Expanded Peripheral pulses: 2+: Posterior Tibialis (R), Posterior Tibialis (L) GI/Abdominal exam: Present: soft. Absent: tenderness Extremities exam: Present: tenderness (Left anterior and lateral hip. Left leg is crossed over the right leg. Patient is unwilling to move it. Distally the extremity is neurovascularly intact.) Neurological exam: Present: alert, CN II-XII intact. Absent: motor sensory deficit Psychiatric exam: Present: normal affect, normal mood Skin exam: Present: normal color Course Vital Signs 04/12/23 04/12/23 04/12/23 12:54 14:12 14:39 Temperature 98.1 F Pulse Rate 82 76 74 Respiratory 18 18 18 Rate Blood Pressure 90/38 96/62 102/45 O2 Sat by Pulse 95 97 96 Oximetry EKG Findings - EKG Results: EKG: interpreted by ERMD (Low QRS voltage.), sinus rhythm, normal axis, normal ST/T Medical Decision Making - Medical Decision Making Was pt. sent in by a medical professional or institution (, PA, DICTAPHONE MECHANIC, urgent care, hospital, or care home...) When possible be specific @ -No Did you speak to anyone other than the patient for history (EMS, parent, family, police, friend...)? What history was obtained from this source @ -No Did you review nursing and triage notes (agree or disagree)? Why? @ -I reviewed and agree with nursing and triage notes Were old charts reviewed (outside hosp., previous admission, EMS record, old EKG, old radiological studies, urgent care reports/EKG's, care home records)? Report findings @ -No old charts were reviewed Differential Diagnosis (chest pain, altered mental status, abdominal pain women, abdominal pain men, vaginal bleeding, weakness, fever, dyspnea, syncope, headache, dizziness, GI bleed, back pain, seizure, CVA, palpatations, mental health, musculoskeletal)? @ -Differential Musculoskeletal Muscular strain, contusion, ligament sprain, fracture, arthritis, septic arthritis, bursitis, cellulitis, muscle spasm, nerve compression, DVT, arterial occlusion, herpes zoster, electrolyte abnormality, tumor.... This is not meant to be in all inclusive list EKG interpreted by me (3pts min.). @ -As above X-rays interpreted by me (1pt min.). @ -Chest x-ray shows no acute process. X-ray left elbow shows left IT fracture. CT interpreted by me (1pt min.). @ -None done U/S interpreted by me (1pt. min.). @ -None done What testing was considered but not performed or refused? (CT, X-rays, U/S, labs)? Why? @ -None What meds were considered but not given or refused? Why? @ -None Did you discuss the management of the patient with other professionals (professionals i.e. , PA, DICTAPHONE MECHANIC, lab, RT, psych nurse, director of social services, feeder catcher, teacher, community cultural development officer, case management director)? Give summary @ -Case discussed with orthopedics, neck branch who recommends medicine admission and they will consult. Dr. Muñoz has been paged. Was smoking cessation discussed for >3mins.? @ -No Was critical care preformed (if so, how long)? @ -No Were there social determinants of health that impacted care today? How? (Homelessness, low income, unemployed, alcoholism, drug addiction, transportat ion, low edu. Level, literacy, decrease access to med. care, snf, rehab)? @ -No Was there de-escalation of care discussed even if they declined (Discuss DNR or withdrawal of care, Hospice)? DNR status @ -No What co-morbidities impacted this encounter? (DM, HTN, Smoking, COPD, CAD, Cancer, CVA, ARF, Chemo, Hep., AIDS, mental health diagnosis, sleep apnea, morbid obesity)? @ -None Was patient admitted / discharged? Hospital course, mention meds given and route, prescriptions, significant lab abnormalities, going to OR and other pertinent info. @ -Patient reevaluated and updated. Patient will be admitted for care of fracture. Admission orders written. Undiagnosed new problem with uncertain prognosis? @ -No Drug Therapy requiring intensive monitoring for toxicity (Heparin, Nitro, Insulin, Cardizem)? @ -No Were any procedures done? @ -No Diagnosis/symptom? @ -Left IT hip fracture Acute, or Chronic, or Acute on Chronic? @ -Acute Uncomplicated (without systemic symptoms) or Complicated (systemic symptoms)? @ -default Side effects of treatment? @ -No Exacerbation, Progression, or Severe Exacerbation? @ -No Poses a threat to life or bodily function? How? (Chest pain, [place], [place], pneumonia, PE, COPD, DKA, ARF, appy, cholecystitis, CVA, Diverticulitis, Homicidal, Suicidal, threat to staff... and all critical care pts) @ -No - Lab Data Result diagrams: 04/12/23 14:34 04/12/23 14:34 Disposition Clinical Impression: Intertrochanteric fracture of left hip Disposition: ADMITTED IP TO THIS HOSP Is patient prescribed a controlled substance at d/c from ED?: No Time of Disposition: 14:19
--- NOTE | 2023-04-12 14:10 | XR ---
EXAMINATION TYPE: XR Hip LT and AP Pelvis DATE OF EXAM: 04/12/2023 2:00 PM CLINICAL INDICATION:Female, 68 years old with history of fall; COMPARISON: None. TECHNIQUE: XR Hip LT and AP Pelvis; hip was examined in the frontal and lateral projections and a AP pelvis. FINDINGS/IMPRESSION: Proximal left intertrochanteric fracture with shortening. Remainder of the pelvis appears intact.
--- NOTE | 2023-04-12 14:12 | XR ---
EXAMINATION TYPE: XR chest 1V DATE OF EXAM: 04/12/2023 2:05 PM CLINICAL INDICATION:Female, 68 years old with history of FALL WITH FRACTURE; [facility] COMPARISON: None TECHNIQUE: XR chest 1V Frontal view of the chest. FINDINGS: Lungs/Pleura: There is flattening of the diaphragm with increased lucency of the lungs. No evidence o f pneumothorax, pleural effusion or focal consolidation. Pulmonary vascularity: Unremarkable. Heart/mediastinum: Cardiomediastinal silhouette is unremarkable. Musculoskeletal: No acute osseous pathology. IMPRESSION: 1. No acute cardiopulmonary disease process. 2. COPD changes.
[2023-04-12] MEDS ORDERED: ACETAMINOPHEN TAB 325 MG TAB PO PRN (14:21)
[2023-04-12] MEDS ORDERED: NALOXONE 0.4 MG/ML 1 ML VIAL IV PRN (14:21)
[2023-04-12] MEDS ORDERED: MORPHINE SULFATE 2 MG/ML SYRINGE IVP STA (14:36)
[2023-04-12] MEDS: SODIUM CHLORIDE 0.9% 1,000 ML IV SCH (14:44)
[2023-04-12 14:45] LABS: Anisocytosis Slight; Basophils % (A) 0 %; Eosinophils % (A) 0 %; HCT 31.2 % (34.0-46.0); HGB 10.3 gm/dL (11.4-16.0); Lymphocytes # (A) 0.3 k/uL (1.0-4.8); Lymphocytes % (A) 14 %; MCH 34.6 pg (25.0-35.0); MCHC 32.9 g/dL (31.0-37.0); MCV 105.3 fL (80.0-100.0); Macrocytosis Moderate; Mean Platelet Volume 7.8; Monocytes % (A) 1 %; Neutrophils # (A) 1.5 k/uL (1.3-7.7); Neutrophils % (A) 83 %; Platelet Count 379 k/uL (150-450); RBC 2.96 m/uL (3.80-5.40); RDW 17.4 % (11.5-15.5); WBC 1.8 k/uL (3.8-10.6)
[2023-04-12 15:00] LABS: Prothrombin Time 10.9 sec (10.0-12.5)
[2023-04-12 15:09] LABS: ALT 47 U/L (4-34); African American GFR (CKD) >90 (>60 ml/min/1.73 sqM); Albumin 2.9 g/dL (3.5-5.0); Anion Gap 6 mmol/L; Blood Urea Nitrogen 16 mg/dL (7-17); Calcium 7.9 mg/dL (8.4-10.2); Carbon Dioxide 24 mmol/L (22-30); Chloride 102 mmol/L (98-107); Glucose 94 mg/dL (74-99); Non-African American GFR(CKD) >90 (>60 ml/min/1.73 sqM); Sodium 132 mmol/L (137-145); Total Bilirubin 0.6 mg/dL (0.2-1.3); Total Protein 5.4 g/dL (6.3-8.2)
[2023-04-12 15:16] LABS: AST 51 U/L (14-36); Alkaline Phosphatase 72 U/L (38-126); Potassium 4.6 mmol/L (3.5-5.1)
[2023-04-12] MEDS ORDERED: diazePAM 2 MG TAB PO PRN (16:04)
--- NOTE | 2023-04-12 16:11 | P.HPOR ---
History of Present Illness H&P Date: 04/12/23 Chief Complaint: Left intertrochanteric femur fracture Patient is a 68-year-old female who presented to [facility] for evaluation of a left lower extremity injury. Patient was standing in her kitchen when she became dizzy, she went to sit down and tripped and fell landing on her left side. Patient was unable to weight-bear after the incident, she was brought to the hospital by EMS. Imaging test and lab tests were done, images did reveal a displaced left intertrochanteric femur fracture. I was contacted by the emergency room staff regarding the patient. I was able to review the images and discuss the case with my attending Dr. Nova. Patient was admitted to the hospital with plan for surgical intervention, internal medicine was also placed on for medical management. Patient was evaluated today at bedside, there was family members present. Patient notes most discomfort in the left lower extremity with movement. She has no other orthopedic complaints at this time. She states she's had a previous fracture in her left foot, she denies any previous surgery to the left lower extremity. Patient normally utilizes no assistive devices for ambulation. She notes most discomfort in the proximal aspect of the left lower extremity with movement. Patient denies any loss of bowel or bladder function. She denies any numbness or tingling in the bilateral upper or lower extremities. Review of Systems Constitutional: Reports as per HPI Past Medical History Additional Past Medical History / Comment(s): hx ulcer History of Any Multi-Drug Resistant Organisms: None Reported Additional Past Surgical History / Comment(s): cataract surgery, surgery for ulcer Past Anesthesia/Blood Transfusion Reactions: No Reported Reaction Past Psychological History: No Psychological Hx Reported Past Alcohol Use History: None Reported Past Drug Use History: None Reported - Past Family History Mother Family Medical History: No Reported History Medications and Allergies Home Medications Medication Instructions Recorded Confirmed Type Multivitamins, Thera [Multivitamin 1 tab PO DAILY 05/06/18 04/12/23 History (formulary)] Vit C/E/Zn/Coppr/Lutein/Zeaxan 1 cap PO DAILY 05/06/18 04/12/23 History [Preservision Areds 2 Softgel] Calcium Carbonate/Vitamin D3 1 cap PO DAILY 04/12/23 04/12/23 History [Calcium 600 mg-D3 10 Mcg (400 Iu)] Folic Acid 1 mg PO DAILY 04/12/23 04/12/23 History NIFEdipine XL [Procardia XL] 60 mg PO DAILY 04/12/23 04/12/23 History Unknown Infusion Or Injection 1 dose IV DIRECTED 04/12/23 04/12/23 History metHOTREXate sodium 25 mg PO WE 04/12/23 04/12/23 History Allergies Allergy/AdvReac Type Severity Reaction Status Date / Time No Known Allergies Allergy Verified 04/12/23 15:38 Physical Examination Left lower extremity: Obvious shortening and external rotation of the extremity is noted when compared to the contralateral side No obvious open lesions or sores are visualized throughout the extremity, no areas of erythema Tenderness to palpation noted to the proximal femur, she is nontender with palpation surrounding the knee, lower leg, foot or ankle Patient is unable to straight leg raise, logroll maneuver reproduces pain. Plantar flexion, dorsiflexion, EHL, FHL are intact. Passive range of motion of the knee is intact, active motion does reproduce pain in the hip. Strength testing was not assessed due to pain in the left lower extremity Calf is soft, no tenderness with palpation Sensory exam to light touch is intact throughout the extremity Dorsalis pedis pulses 2+ Results - Labs Labs: Abnormal Lab Results - Last 24 Hours (Table) 04/12/23 04/12/23 Range/Units 14:34 14:34 WBC 1.8 L (3.8-10.6) k/uL RBC 2.96 L (3.80-5.40) m/uL Hgb 10.3 L (11.4-16.0) gm/dL Hct 31.2 L (34.0-46.0) % MCV 105.3 H (80.0-100.0) fL RDW 17.4 H (11.5-15.5) % Lymphocytes # 0.3 L (1.0-4.8) k/uL Sodium 132 L (137-145) mmol/L Creatinine 0.49 L (0.52-1.04) mg/dL Calcium 7.9 L (8.4-10.2) mg/dL AST 51 H (14-36) U/L ALT 47 H (4-34) U/L Total Protein 5.4 L (6.3-8.2) g/dL Albumin 2.9 L (3.5-5.0) g/dL H & H 04/12/23 Range/Units 14:34 Hgb 10.3 L (11.4-16.0) gm/dL Hct 31.2 L (34.0-46.0) % Coagulation 04/12/23 Range/Units 14:34 INR 1.0 (<1.2) Result Diagrams: 04/12/23 14:34 04/12/23 14:34 - Diagnostic results Hip x-ray: report reviewed, image reviewed (AP pelvis along with 2 views of the left hip were reviewed. Images demonstrated a displaced left intertrochanteric femur fracture. The hip joint remains intact.) Assessment and Plan Assessment: Displaced left intertrochanteric femur fracture Status post fall from standing Other medical comorbidities Plan: I was able to discuss the case, this including the physical exam findings and imaging studies my attending Dr. Nova. We will proceed with surgical intervention, more specifically insertion of an intramedullary nail for the left femur. Surgery scheduled for 04/13/2023 Risk and benefits of the procedure were discussed with the patient, this including but not excluded blood loss, neurovascular injury, infection, devel opment blood clots, inadequate healing of bone, need for subsequent surgery, pain and stiffness. Patient is in good understanding and would like to proceed with surgery. Consent will be obtained prior to procedure Nothing by mouth after midnight Urinary catheter placement DVT prophylaxis, we'll begin subcu medication after surgery Pain control, multiple oral medications have been ordered, also utilize Valium 2 mg twice a day as needed for anxiety. IV pain medication is also available PT/OT evaluation after surgery Nonweightbearing left lower extremity at this time Medical recommendations appreciated Recommendations to follow Time with Patient: Less than 30
[2023-04-12] MEDS: MORPHINE SULFATE 4 MG/ML SYRINGE IV PRN ×2 (17:05→20:35)
[2023-04-12 18:10] LABS: Appearance,Urine Slightly Cloudy (Clear); Color,Urine Yellow; Hyaline Casts,Urine 10 /lpf (0-2); Mucus,Urine Few /hpf; RBC,Urine 1 /hpf (0-5); Specific Gravity,Urine >1.030 (1.001-1.035); Squamous Epithelial Cell,Urine <1 /hpf (0-4); WBC,Urine 1 /hpf (0-5)
[2023-04-12 18:11] LABS: Bilirubin,Urine Negative (Negative); Blood,Urine Negative (Negative); Glucose,Urine (UA) Negative (Negative); Ketones,Urine 2+ (Negative); Leukocyte Esterase,Urine Negative (Negative); Nitrite,Urine Negative (Negative); PH, Urine 5.5 (5.0-8.0); Protein,Urine 1+ (Negative); Urobilinogen,Urine <2.0 mg/dL (<2.0)
[2023-04-12] MEDS: ONDANSETRON 4 MG/2 ML VIAL IVP PRN (20:07)
[2023-04-12] MEDS: HYDROcodone/APAP 5-325MG 1 EACH TAB PO PRN (23:08)
[2023-04-13] MEDS: MORPHINE SULFATE 4 MG/ML SYRINGE IV PRN ×4 (01:03→20:00)
[2023-04-13] MEDS: traMADol 50 MG TAB PO PRN (03:20)
[2023-04-13] MEDS: SODIUM CHLORIDE 0.9% 1,000 ML IV SCH ×2 (03:22→20:05)
[2023-04-13] MEDS ORDERED: LIDOCAINE 1% (10MG/ML) FOR IV START INTRADERMA PRN (06:08)
[2023-04-13] MEDS ORDERED: droPERidol 5 MG/2 ML VIAL IVP ONE (06:08)
[2023-04-13] MEDS ORDERED: ONDANSETRON 4 MG/2 ML VIAL IVP ONE (06:08)
[2023-04-13] MEDS ORDERED: LACTATED RINGERS 1,000 ML IV SCH (06:08)
[2023-04-13] MEDS ORDERED: DEXAMETHASONE SOD PHOSPHATE 4 MG/ML 1 ML VIAL IV ONE (06:08)
[2023-04-13] MEDS ORDERED: HYDROmorphone 0.5 MG/0.5 ML SYRINGE IVP PRN (07:00)
[2023-04-13] MEDS ORDERED: NON FORMULARY DRUG (Vit C/E/Zn/Coppr/Lutein/Zeaxan [Preservision Areds 2 Softgel] 1 EACH C PO SCH (09:00)
[2023-04-13] MEDS: MULTIVITAMINS, THERA 1 EACH TAB PO SCH (09:54)
[2023-04-13] MEDS: FOLIC ACID 1 MG TAB PO SCH (09:54)
[2023-04-13] MEDS: CALCIUM CARB-VIT D 500 MG-5 MCG TAB PO SCH (09:54)
[2023-04-13] MEDS: HYDROcodone/APAP 5-325MG 1 EACH TAB PO PRN ×2 (10:11→21:57)
[2023-04-13] MEDS: ONDANSETRON 4 MG/2 ML VIAL IVP PRN ×2 (10:14→17:01)
[2023-04-13 12:38] VITALS: BMI 17.9
--- NOTE | 2023-04-13 15:47 | PN ---
PROGRESS NOTE CHIEF COMPLAINT: Fracture of left hip. HISTORY OF PRESENT ILLNESS: This lady is going to surgery at 4 o'clock. She has had an echocardiogram, the results are pending. She cannot have a CTA of the head and neck. A carotid ultrasound would be helpful. I will clear her for surgery, but the possibility of aortic stenosis and/or carotid occlusive disease increases her risk slightly. These studies should be completed in the next day or so, however. She is cleared for surgery for ORIF of the left hip. MMODL / IJN: [id number] /
--- NOTE | 2023-04-13 17:26 | P.CONS ---
History of Present Illness - Reason for Consult Consult date: 04/13/23 bicytopenia Requesting physician: Benny Muñoz - Chief Complaint fall, lt hip fracture - History of Present Illness Patient is a pleasant 68-year-old female admitted to the hospital after slip and fall, landing on her left hip, discomfort since that time. She is being currently worked up to be medically cleared for orthopedic intervention. Hematology is been asked to see the patient because of low white blood cell count, 1.8 on admission, ANC is within normal limits, absolute lymphocyte count is low at 0.3. Also, anemia, hemoglobin 10.3. She reports that she takes 25 mg of methotrexate PO every Wednesday for Raynaud's disease. She is on monthly injection for osteoporosis. She received a Covid vaccine last week. She denies any unusual symptoms or side effects post vaccine. On chart review on a previous admission patient's counts were slightly off at that time as well, despite his severe as this time. Patient denies ever being told she had low counts before. No fevers, chills, respiratory symptoms, nausea, vomiting, acute changes in bowel or bladder habits, or bleeding reported. Review of Systems 10 point ROS is neg except as stated in HPI Past Medical History Additional Past Medical History / Comment(s): hx ulcer, Raynauds, History of Any Multi-Drug Resistant Organisms: None Reported Additional Past Surgical History / Comment(s): cataract surgery, surgery for ulcer Past Anesthesia/Blood Transfusion Reactions: No Reported Reaction Past Psychological History: No Psychological Hx Reported Smoking Status: Former smoker Past Alcohol Use History: None Reported Past Drug Use History: None Reported - Past Family History Mother Family Medical History: No Reported History Medications and Allergies Home Medications Medication Instructions Recorded Confirmed Type Multivitamins, Thera [Multivitamin 1 tab PO DAILY 05/06/18 04/12/23 History (formulary)] Vit C/E/Zn/Coppr/Lutein/Zeaxan 1 cap PO DAILY 05/06/18 04/12/23 History [Preservision Areds 2 Softgel] Calcium Carbonate/Vitamin D3 1 cap PO DAILY 04/12/23 04/12/23 History [Calcium 600 mg-D3 10 Mcg (400 Iu)] Folic Acid 1 mg PO DAILY 04/12/23 04/12/23 History NIFEdipine XL [Procardia XL] 60 mg PO DAILY 04/12/23 04/12/23 History Romosozumab-Aqqg [Evenity] 210 mg SQ Q30D 04/12/23 04/12/23 History metHOTREXate sodium 25 mg PO WE 04/12/23 04/12/23 History Allergies Allergy/AdvReac Type Severity Reaction Status Date / Time No Known Allergies Allergy Verified 04/12/23 15:38 Physical Exam Vitals: Vital Signs Temp Pulse Pulse Resp BP BP Pulse Ox 04/13/23 07:13 98.4 F 85 17 108/57 92 L 04/13/23 02:00 99.0 F 91 15 96/53 93 L 04/12/23 20:00 99.2 F 92 16 117/66 93 L 04/12/23 18:20 99.1 F 99 17 131/65 89 L 04/12/23 17:28 90 20 104/53 96 04/12/23 17:01 75 20 92/65 94 L 04/12/23 16:33 90 20 95/52 93 L 04/12/23 14:39 74 18 102/45 96 04/12/23 14:12 76 18 96/62 97 Intake and Output 04/12/23 04/13/23 04/13/23 22:59 06:59 14:59 Other: Voiding Method Indwelling Catheter Indwelling Catheter Weight 44.452 kg 44.452 kg - Constitutional General appearance: average body habitus, cooperative, no acute distress - EENT Eyes: anicteric sclerae, EOMI ENT: hearing grossly normal - Respiratory resp even and unlabored at rest - Cardiovascular skin warm and dry to touch leg Peripheral Edema: bilateral: None - Gastrointestinal General gastrointestinal: soft - Integumentary Integumentary: normal - Neurologic Neurologic: CNII-XII intact (grossly) - Psychiatric Psychiatric: A&O x's 3, appropriate affect, intact judgment & insight Results CBC & Chem 7: 04/12/23 14:34 04/12/23 14:34 Labs: Abnormal Lab Results - Last 24 Hours (Table) 04/12/23 04/12/23 04/12/23 Range/Units 14:34 14:34 17:25 WBC 1.8 L (3.8-10.6) k/uL RBC 2.96 L (3.80-5.40) m/uL Hgb 10.3 L (11.4-16.0) gm/dL Hct 31.2 L (34.0-46.0) % MCV 105.3 H (80.0-100.0) fL RDW 17.4 H (11.5-15.5) % Lymphocytes # 0.3 L (1.0-4.8) k/uL Sodium 132 L (137-145) mmol/L Creatinine 0.49 L (0.52-1.04) mg/dL Calcium 7.9 L (8.4-10.2) mg/dL AST 51 H (14-36) U/L ALT 47 H (4-34) U/L Total Protein 5.4 L (6.3-8.2) g/dL Albumin 2.9 L (3.5-5.0) g/dL Urine Appearance Slightly Cloudy H (Clear) Urine Protein 1+ H (Negative) Urine Ketones 2+ H (Negative) Hyaline Casts 10 H (0-2) /lpf Urine Mucus Few H (None) /hpf Assessment and Plan (1) Raynaud disease Current Visit: Yes Status: Chronic Priority: Medium Code(s): I73.00 - RAYNAUD'S SYNDROME WITHOUT GANGRENE SNOMED Code(s): 510315390 (2) Bicytopenia Current Visit: Yes Status: Acute Priority: High Code(s): D75.89 - OTHER SPECIFIED DISEASES OF BLOOD AND BLOOD-FORMING ORGANS SNOMED Code(s): 99335862 Plan: Raynaud's disease -Treated by Rheumatology -Takes 25 mg by mouth of methotrexate every Wednesday -Takes folic acid 1 mg by mouth daily-cont -Stat methotrexate level ordered -Hold methotrexate while inpatient, and until CBC is recovered Bicytopenia -Suspect secondary to treatment with marrow suppressive methotrexate, exacerbated by acute stress of femur fracture -Hemoglobin 10.3. This is adequate for orthopedic surgical procedure from a Hematology standpoint. Surgeon preference always prevails -WBC 1.8, normal ANC of 1.5, ALC decreased at 0.3. No need to postpone surgical intervention, ANC is adequate. -CBC Daily while inpatient -Transfuse for hemoglobin less than 7 -Will monitor ANC, if it falls below 1000 will initiate G-CSF
[2023-04-13] MEDS ORDERED: NALOXONE 0.4 MG/ML 1 ML VIAL IV PRN (18:27)
--- NOTE | 2023-04-13 18:27 | P.OP ---
Date of Procedure: 04/13/23 Preoperative Diagnosis: Left hip intertrochanteric fracture Postoperative Diagnosis: Left hip intertrochanteric fracture Procedure(s) Performed: Trochanteric nailing left hip intertrochanteric fracture Implants: Arthrex short trochanteric nail 10 mm with 130 angle 90 mm lag screw and a 5.0 30 mm distal locking screw Anesthesia: SARITA Surgeon: Ortiz Nova [employer] Offset Press Feeder #1: Justin Dior Estimated Blood Loss (ml): 15 Pathology: none sent Condition: stable Disposition: PACU Indications for Procedure: 5-year-old patient was seen with a left hip intertrochanteric fracture. I recommended trochanteric nailing. Patient was agreeable. Consent was obtained. Preoperative medical clearance was provided. Operative Findings: See description of procedure Description of Procedure: Patient was taken to the operative suite. She underwent a general anesthetic by the primary a calvin. She was transferred to the fracture table. She received preoperative IV antibiotics. The right lower extremity was placed in well- padded well-leg petty and the left lower chest placed in standard longitudinal traction with slight adduction and internal rotation. I brought the C-arm into the operative field and noted adequate reduction of the fracture. The C-arm was pulled back. Left hip was prepped and draped in the normal sterile orthopedic fashion. The C-arm was brought back into the operative field. I made an incision just proximal to the greater trochanter sharply through skin. I dissected down to the IT band an incision through that. I now placed a guidewire through the greater trochanter. I inserted a guidewire into the proximal femoral canal. I confirmed that AP and lateral intraoperative imaging. I now repaired our entry reamer over the guidewire and entry reamed into the greater trochanter. I now chose a short 10 mm Arthrex one [address] I place over the guidewire and tapped that down into the proximal femur. I confirmed position on AP and lateral intraoperative imaging. We now used the outrigger and introduced our guide for the compression screw. An incision was made laterally and the guide was placed down communicating to the lateral cortex of the bone. That was confirmed under imaging. A guidewire was now inserted into the head neck complex confirming that under AP and lateral intraoperative imaging. We now depth gauge that followed by reaming and then introduced a 90 mm compression screw with good fixation noted. We now compressed the fracture and secured that compression screw. Once it was locked the cannula and guide were removed. We noted adequate positioning of our compression screw and the femoral head. We now placed a cannula into the static distal locking outrigger guide. An incision was made through the skin and the guide was placed making contact with the bone laterally. We now drilled through our distal locking screw hole. We now introduced a 5 x 30 mm distal locking screw with good fixa tion noted. I now removed the entire outrigger. The entire construct was visualized under AP and lateral intraoperative imaging. We had good reduction of the fracture and excellent placement of our trochanteric nail and femoral head screw. We irrigated all wounds copiously. The IT bands were repaired with #1 Vicryl. The subcu soft tissues repaired to a Vicryl. Skin margins were approximated with malena. Sterile dressings were applied. The patient was awakened, transferred to a bed and recovery stable condition. Julian WEBER assisted in all aspects of this procedure.
--- NOTE | 2023-04-13 18:33 | XR ---
Intraoperative/procedural fluoroscopic services were provided. Total fluoroscopy time is 53.7 seconds with a total of 5 submitted images to PACS. Please see the operative/procedural note for further det ails. DAP: 1.4674 Gycm2
[2023-04-13] MEDS: SENNOSIDES-DOCUSATE SODIUM 1 EACH TAB PO SCH (20:01)
[2023-04-14] MEDS: MORPHINE SULFATE 4 MG/ML SYRINGE IV PRN ×4 (00:43→18:01)
[2023-04-14] MEDS: ONDANSETRON 4 MG/2 ML VIAL IVP PRN (01:50)
[2023-04-14] MEDS: SODIUM CHLORIDE 0.9% 1,000 ML IV SCH ×2 (02:00→13:53)
[2023-04-14] MEDS: traMADol 50 MG TAB PO PRN (02:26)
[2023-04-14 08:02] LABS: Anisocytosis Slight; Basophils % (A) 1 %; Eosinophils % (A) 2 %; HCT 26.4 % (34.0-46.0); Hypochromasia Slight; Lymphocytes # (A) 0.2 k/uL (1.0-4.8); Lymphocytes % (A) 10 %; MCH 35.7 pg (25.0-35.0); MCHC 33.1 g/dL (31.0-37.0); Macrocytosis Marked; Mean Platelet Volume 8.5; Monocytes % (A) 1 %; Neutrophils # (A) 1.7 k/uL (1.3-7.7); Neutrophils % (A) 86 %; Platelet Count 242 k/uL (150-450); RBC 2.44 m/uL (3.80-5.40); RDW 18.2 % (11.5-15.5); WBC 1.9 k/uL (3.8-10.6)
[2023-04-14 08:03] LABS: HGB 8.7 gm/dL (11.4-16.0)
[2023-04-14] MEDS: FOLIC ACID 1 MG TAB PO SCH (08:30)
[2023-04-14] MEDS: CALCIUM CARB-VIT D 500 MG-5 MCG TAB PO SCH (08:30)
[2023-04-14] MEDS: MULTIVITAMINS, THERA 1 EACH TAB PO SCH (08:30)
[2023-04-14] MEDS: ENOXAPARIN 40 MG/0.4 ML SYRINGE SQ SCH (08:31)
[2023-04-14] MEDS ORDERED: ENOXAPARIN 40 MG/0.4 ML SYRINGE SQ SCH (09:00)
--- NOTE | 2023-04-14 10:08 | CA ---
Transthoracic Echo Report Name: Lyubov Hanna Age: 68 Gender: F : 1955 Exam Date: 04/13/2023 12:04 Exam Location: [facility] Ht (in): 62 Wt (lb): 98 Ordering Physician: Benny Muñoz MD Attending/Referring Phys: Toni GOLD Park Keeper Booker Adrian Procedure CPT: Indications: Syncope, murmur Cardiac Hx: Technical Quality: Fair Contrast 1: Total Dose (mL): Contrast 2: Total Dose (mL): MEASUREMENTS (Male / Female) Normal Values 2D ECHO LV Diastolic Diameter PLAX 4.1 cm 4.2 - 5.9 / 3.9 - 5.3 cm LV Systolic Diameter PLAX 2.5 cm IVS Diastolic Thickness 0.9 cm 0.6 - 1.0 / 0.6 - 0.9 cm LVPW Diastolic Thickness 1.0 cm 0.6 - 1.0 / 0.6 - 0.9 cm LV Relative Wall Thickness 0.5 RV Internal Dim ED PLAX 2.8 cm LVOT Diameter 1.8 cm Aortic Root Diameter 2.6 cm LA Systolic Diameter LX 2.4 cm 3.0 - 4.0 / 2.7 - 3.8 cm LV Diastolic Volume MOD BP 32.9 cm??? 67 - 155 / 56 - 104 cm??? LV Systolic Volume MOD BP 10.7 cm??? 22 - 58 / 19 - 49 cm??? LV Ejection Fraction MOD BP 67.3 % >= 55 % LV Cardiac Index MOD BP 1355.4 cm???/min???m??? LV Diastolic Volume MOD 4C 33.8 cm??? LV Systolic Volume MOD 4C 10.6 cm??? LV Ejection Fraction MOD 4C 68.8 % LV Cardiac Index MOD 4C 1426.1 cm???/min???m??? LV Diastolic Length 4C 6.5 cm LV Systolic Length 4C 5.6 cm LV Diastolic Volume MOD 2C 30.0 cm??? LV Systolic Volume MOD 2C 10.4 cm??? LV Ejection Fraction MOD 2C 65.5 % LV Cardiac Index MOD 2C 1204.4 cm???/min???m??? LV Diastolic Length 2C 6.1 cm LV Systolic Length 2C 5.2 cm LA Volume 30.7 cm??? 18 - 58 / 22 - 52 cm??? LA Volume Index 22.2 cm???/m??? 16 - 28 cm???/m??? DOPPLER AV Peak Velocity 185.8 cm/s AV Peak Gradient 13.8 mmHg AI Peak Velocity 354.1 cm/s AI Peak Gradient 50.2 mmHg AI Pressure Half Time 517.6 ms LVOT Peak Velocity 150.9 cm/s LVOT Peak Gradient 9.1 mmHg LVOT Velocity Time Integral 28.9 cm LVOT Stroke Volume 71.8 cm??? LVOT Stroke Volume Index 50.9 ml/m??? LVOT Cardiac Index 4400.7 cm???/min???m??? AV Area Cont Eq pk 2.0 cm??? MV Peak Velocity 110.8 cm/s MV Peak Gradient 4.9 mmHg MV Mean Velocity 59.1 cm/s MV Mean Gradient 1.7 mmHg MV Velocity Time Integral 33.1 cm MR Peak Velocity 292.4 cm/s MR Peak Gradient 34.2 mmHg Mitral E Point Velocity 89.1 cm/s Mitral A Point Velocity 82.6 cm/s Mitral E to A Ratio 1.1 MV Deceleration Time 196.5 ms MV E' Velocity 10.4 cm/s Mitral E to MV E' Ratio 8.6 TR Peak Velocity 303.6 cm/s TR Peak Gradient 36.9 mmHg Right Ventricular Systolic Press 42.0 mmHg PV Peak Velocity 152.8 cm/s PV Peak Gradient 9.3 mmHg FINDINGS Left Ventricle Normal LV size and wall thickness. Left ventricular ejection fraction is estimated at 65-70 %. Right Ventricle Normal right ventricular size. RVSP= 46 mmHg. Right Atrium Normal right atrial size. Left Atrium Normal left atrial size. LA volume index= 22ml/m2 Mitral Valve Structurally normal mitral valve. Trace MR. Aortic Valve Trileaflet aortic valve. Mild AV calcifiction/sclerosis. Mild AI. Tricuspid Valve Structurally normal tricuspid valve. Moderate TR Pulmonic Valve Pulmonic valve not well visualized. No pulmonic regurgitation. Pericardium No pericardial effusion Aorta Normal size aortic root. CONCLUSIONS Normal LV size and systolic function. LVEF estimated at 65% No obvious regional wall motion abnormality Normal LV size and function. RVSP estimated at 46mmHg Mild aortic regurgitation Previewed by: Dr Montana Membreno (Electronically Signed) Final Date: 14 April 2023 10:07
--- NOTE | 2023-04-14 11:01 | P.PN ---
Subjective Progress Note Date: 04/14/23 Principal diagnosis: status post intramedullary nail left intertrochanteric femur fracture Patient was evaluated today at bedside, she is resting comfortably, she has family present at bedside. Patient is eager to work with physical therapy. Urinary catheter is in place at this time. Pain is currently controlled with medications. Hemoglobin did drop a little bit overnight, we are starting ferrous sulfate 325 mg twice a day today. Patient is scheduled for a CT angiography later this morning. Both internal medicine and hematology/oncology are following the patient. Currently has no headaches, lightheadedness, chest pain or shortness of breath Objective - Vital Signs Vital signs: Vital Signs Temp 98 F 04/14/23 07:23 Pulse 88 04/14/23 07:23 Resp 17 04/14/23 07:23 BP 93/58 04/14/23 07:23 Pulse Ox 92 L 04/14/23 07:23 FiO2 Intake & Output 04/13/23 04/14/23 04/14/23 18:59 06:59 18:59 Intake Total 500 Output Total 15 Balance 485 Weight 44.452 kg Intake: IV 500 Output: Estimated Blood Loss 15 Other: Voiding Method Indwelling Catheter Indwelling Catheter # Voids 4 - Exam Left lower extremity: Incision is clean, dry, and intact. The foam dressings is in good condition. There is minimal soft tissue swelling and ecchymosis surrounding the medial and lateral aspects of the incision. Calf is soft, no tenderness with palpation. Plantar flexion, dorsiflexion, EHL, FHL are intact. Sensory exam to light touch throughout the extremity is intact, dorsal pedis pulses 2+. - Labs CBC & Chem 7: 04/14/23 07:26 04/12/23 14:34 Labs: Abnormal Lab Results - Last 24 Hours (Table) 04/13/23 04/13/23 04/14/23 Range/Units 10:48 16:03 07: WBC 1.9 L (3.8-10.6) k/uL RBC 2.44 L (3.80-5.40) m/uL Hgb 8.7 L D (11.4-16.0) gm/dL Hct 26.4 L (34.0-46.0) % MCV 108.0 H (80.0-100.0) fL MCH 35.7 H (25.0-35.0) pg RDW 18.2 H (11.5-15.5) % Macrocytosis Marked A Ferritin 660.0 H (10.0-291.0) ng/mL Folate 3.90 L (4.40-31.00) ng/mL Assessment and Plan Assessment: Postoperative day #1 status post left intramedullary nail for intertrochanteric femur fracture Plan: Pain control, continue with current medications. Continue scheduled stool softeners DVT prophylaxis, Lovenox while in hospital Wound care, monitor surgical dressings, okay to leave in place over the next 2-3 days Continue to ice the extremity Encourage incentive spirometer PT/OT, weight-bear as tolerated with walker Other medical specialty recommendations appreciated Discharge planning: Patient is eager to try be discharged to home with home healthcare, we will monitor how she does with therapy during hospital stay. Discussed the possibility of a short stay at subacute rehab. Time with Patient: Less than 30
[2023-04-14] MEDS: FAMOTIDINE 20 MG TAB PO SCH (11:07)
[2023-04-14] MEDS: LEUCOVORIN 5 MG TAB PO SCH ×2 (11:27→21:04)
--- NOTE | 2023-04-14 13:09 | CT ---
EXAMINATION TYPE: CT angio head neck DATE OF EXAM: 04/14/2023 COMPARISON: None HISTORY: Syncope, Left Carotid murmur CT DLP: 320.5 mGycm CONTRAST: Performed without and with IV Contrast, patient injected with 65 ml mL of Isovue 370. Combination Contrast CTA cervical carotids and [place] CTA cervical carotids with 3-D recons truction Contrast CTA of the cervical carotids was performed 3-D reconstruction imaging obtained at a separate workstation. Right carotid system: Mild plaque is seen of the right common carotid artery. There is mild plaque a lso noted at the carotid bulb and proximal ICA. No significant diameter reduction. ECA is patent. Right vertebral artery appears unremarkable. Left carotid system: Mild plaque is seen of the left common carotid artery. There is moderate plaque also noted at the carotid bulb and proximal ICA. There is estimated stenosis of 80% at the takeoff of the left internal carotid artery. ECA is patent. Left vertebral artery appears unremarkable. Incidental dilatation of the esophagus with fluid level seen. Bilateral pleural effusions noted. Mode rate to severe upper lobe emphysema. IMPRESSION: 1. 80% diameter reduction takeoff left ICA. CTA [place] of Devi with 3-D reconstruction Contrast CTA of the [place] of Devi was performed 3-D reconstruction imaging obtained at a separate workstation. Batch volume 3-D images are nondiagnostic. Vertebrobasilar system as well as intracranial portions of the internal carotid arteries and their major tributaries are patent. I do not see evidence for siz able aneurysm or vascular malformation. Please note MRI provides greater sensitivity and specificity . Visualized brain appears grossly unremarkable. IMPRESSION: 1. No significant abnormality. NASCET criteria was used in interpretation of this exam?
[2023-04-14] MEDS: MAG HYDROX/AL HYDROX/SIMETH 30 ML, diphenhydrAMINE ELIXIR 75 MG, LIDOCAINE VISCOUS 2% 3... PO SCH ×9 (13:52→21:05)
[2023-04-14] MEDS: HYDROcodone/APAP 5-325MG 1 EACH TAB PO PRN ×2 (13:58→21:03)
[2023-04-14] MEDS ORDERED: metHOTREXate sodium 2.5 MG TAB PO SCH (15:41)
--- NOTE | 2023-04-14 16:15 | P.PN ---
Subjective Progress Note Date: 04/14/23 Principal diagnosis: bicytopenia Patient is doing well postop day 1 from orthopedic procedure. No unusual bleeding or bruising. No fevers or chills. Objective - Vital Signs Vital signs: Vital Signs Temp 98 F 04/14/23 07:23 Pulse 63 04/14/23 13:37 Resp 18 04/14/23 13:37 BP 100/61 04/14/23 13:37 Pulse Ox 94 L 04/14/23 13:37 FiO2 Intake & Output 04/13/23 04/14/23 04/14/23 18:59 06:59 18:59 Intake Total 500 Output Total 15 Balance 485 Weight 44.452 kg Intake: IV 500 Output: Estimated Blood Loss 15 Other: Voiding Method Indwelling Catheter Indwelling Catheter # Voids 4 - Constitutional General appearance: Present: average body habitus, cooperative, no acute distress - EENT Eyes: Present: anicteric sclerae, EOMI ENT: Present: hearing grossly normal - Respiratory Details: Respirations even and unlabored at rest - Neurologic Neurologic: Present: CNII-XII intact (Grossly) - Psychiatric Psychiatric: Present: A&O x's 3, appropriate affect, intact judgment & insight - Labs CBC & Chem 7: 04/14/23 07:26 04/12/23 14:34 Labs: Abnormal Lab Results - Last 24 Hours (Table) 04/13/23 04/13/23 04/14/23 Range/Units 10:48 16:03 07:26 WBC 1.9 L (3.8-10.6) k/uL RBC 2.44 L (3.80-5.40) m/uL Hgb 8.7 L D (11.4-16.0) gm/dL Hct 26.4 L (34.0-46.0) % MCV 108.0 H (80.0-100.0) fL MCH 35.7 H (25.0-35.0) pg RDW 18.2 H (11.5-15.5) % Lymphocytes # 0.2 L (1.0-4.8) k/uL Macrocytosis Marked A Ferritin 660.0 H (10.0-291.0) ng/mL Folate 3.90 L (4.40-31.00) ng/mL Assessment and Plan (1) Raynaud disease Current Visit: Yes Status: Chronic Priority: Medium Code(s): I73.00 - RAYNAUD'S SYNDROME WITHOUT GANGRENE SNOMED Code(s): 503497127 (2) Bicytopenia Current Visit: Yes Status: Acute Priority: High Code(s): D75.89 - OTHER SPECIFIED DISEASES OF BLOOD AND BLOOD-FORMING ORGANS SNOMED Code(s): 74713384 Plan: Raynaud's disease -Treated by Rheumatology -Takes 25 mg by mouth of methotrexate every Wednesday -Takes folic acid 1 mg by mouth daily-cont. Folate 3.9. Leucovorin twice a day 3 days ordered as a folate rescue as pt on MTX. -Stat methotrexate level ordered-Pending -Hold methotrexate while inpatient, and until CBC is recovered Bicytopenia -Suspect secondary to treatment with marrow suppressive methotrexate, exacerbated by acute stress of femur fracture -Hemoglobin Down to 8.7, patient is postop, no gross evidence of bleeding. CBC in the a.m. -WBC 1.9, normal ANC of 1.7, ANC is adequate, No intervention needed at this time. -CBC Daily while inpatient -Transfuse for hemoglobin less than 7 -Will monitor ANC, if it falls below 1000 will initiate G-CSF
[2023-04-14] MEDS: FERROUS SULFATE 325 MG TAB PO SCH (17:11)
[2023-04-14] MEDS: SENNOSIDES-DOCUSATE SODIUM 1 EACH TAB PO SCH (21:04)
[2023-04-15] MEDS: HYDROcodone/APAP 5-325MG 1 EACH TAB PO PRN ×2 (05:42→14:08)
--- NOTE | 2023-04-15 08:02 | PN ---
PROGRESS NOTE DATE OF SERVICE: 04/13/2023 CHIEF COMPLAINT: Fracture of the left hip. HISTORY OF PRESENT ILLNESS: This lady seems to be doing fairly well. She is not having a great deal of pain. She is going to the operating room. PHYSICAL EXAMINATION: GENERAL: She remains pale. CHEST: Clear. CARDIAC: Unchanged with a murmur over the aortic area. ABDOMEN: Soft, nontender. EXTREMITIES: Normal. IMPRESSION: 1. Fracture left hip. 2. Scleroderma. 3. Anemia. 4. Left carotid bruit. 5. Aortic valve murmur. PLAN: She is cleared to go for surgery and will undergo further studies regarding the murmur and the bruit on the left side afterwards. MMODL / IJN: [id number] /
--- NOTE | 2023-04-15 08:20 | HP ---
HISTORY AND PHYSICAL CHIEF COMPLAINT: Pain in the left hip. HISTORY OF PRESENT ILLNESS: This is first known admission for this 68-year-old white female. Apparently, she fell and broke her left hip. She is not exactly sure. She thinks that she may have passed out. She has history of scleroderma, which may have some bearing on the as well as her fracture. REVIEW OF SYSTEMS: She is awake and alert. She denies any headache, double vision, neurologic deficits, shortness of breath, chest pain, abdominal pain, nausea, vomiting, diarrhea, melena, urinary complaints, etc. Past medical history, family history, personal and social histories reveal that she is not allergic to any medications. MEDICATIONS: She is currently on, 1. Nifedipine ER 60 mg once a day. 2. Methotrexate 2.5 mg 7 tablets once a week. 3. Alendronate 70 mg once a week. 4. Folic acid 1 mg once a day. The remainder of her history is basically unremarkable. SOCIAL HISTORY: She used to smoke, but does not any longer. PHYSICAL EXAMINATION: VITAL SIGNS: Blood pressure is 110/62 with a pulse of 81, respirations 16. She is afebrile. GENERAL: She appeared to be slender . HEENT: Head, ears, eyes, nose, mouth and throat were normal. NECK: Veins are not distended. There was a left carotid bruit. CHEST: Clear. CARDIAC: Demonstrated a grade 1-2/6 murmur heard over the aortic area. There is no S3 or S4. ABDOMEN: Soft and nontender. EXTREMITIES: Normal except for the left hip. NEUROLOGIC: She is intact. DIAGNOSES: She is admitted to the hospital with diagnoses, 1. Fracture left hip. 2. Anemia. 3. Scleroderma. 4. Left carotid bruit. 5. Aortic murmur. PLAN: 1. Prepare for surgery. 2. Echocardiogram. 3. CTA of the head and neck or ultrasound of the carotid arteries. 4. Consider further management of her likely osteoporosis secondary to her scleroderma. MMODL / IJN: [id number] /
[2023-04-15 08:32] LABS: Anisocytosis Slight; Basophils % (A) 0 %; Eosinophils # (A) 0.1 k/uL (0-0.7); Eosinophils % (A) 3 %; HGB 8.1 gm/dL (11.4-16.0); Hypochromasia Slight; Lymphocytes # (A) 0.4 k/uL (1.0-4.8); Lymphocytes % (A) 19 %; MCH 35.1 pg (25.0-35.0); MCHC 32.5 g/dL (31.0-37.0); MCV 108.1 fL (80.0-100.0); Macrocytosis Marked; Mean Platelet Volume 8.8; Monocytes % (A) 2 %; Neutrophils # (A) 1.7 k/uL (1.3-7.7); Neutrophils % (A) 76 %; Platelet Count 171 k/uL (150-450); RBC 2.31 m/uL (3.80-5.40); RDW 18.4 % (11.5-15.5); WBC 2.2 k/uL (3.8-10.6)
--- NOTE | 2023-04-15 09:32 | PN ---
PROGRESS NOTE DATE OF SERVICE: 04/14/2023 CHIEF COMPLAINT: Fracture left hip and scleroderma. HISTORY OF PRESENT ILLNESS: This lady is doing well. Surgery was successful and she is doing well. She is comfortable. She has had no shortness of breath, cough, chest pain etc. PHYSICAL EXAMINATION: GENERAL: Color remains the same. CHEST: Clear. CARDIAC: Unchanged. ABDOMEN: Soft, nontender. IMPRESSION: 1. Fracture of left hip. 2. Scleroderma. 3. Cardiac murmur. 4. Left carotid bruit with 80% stenosis. PLAN: Continue monitoring her inpatient care. The left carotid artery will have to be further addressed at a later date. She also has mild aortic insufficiency which probably is insignificant. MMODL / IJN: [id number] /
[2023-04-15] MEDS: traMADol 50 MG TAB PO PRN ×2 (09:48→18:25)
[2023-04-15] MEDS: MULTIVITAMINS, THERA 1 EACH TAB PO SCH (09:50)
[2023-04-15] MEDS: CALCIUM CARB-VIT D 500 MG-5 MCG TAB PO SCH (09:50)
[2023-04-15] MEDS: LEUCOVORIN 5 MG TAB PO SCH ×2 (09:50→21:01)
[2023-04-15] MEDS: FAMOTIDINE 20 MG TAB PO SCH (09:51)
[2023-04-15] MEDS: FERROUS SULFATE 325 MG TAB PO SCH ×2 (09:51→16:28)
[2023-04-15] MEDS: MAG HYDROX/AL HYDROX/SIMETH 30 ML, diphenhydrAMINE ELIXIR 75 MG, LIDOCAINE VISCOUS 2% 3... PO SCH ×9 (09:52→22:36)
[2023-04-15] MEDS: FOLIC ACID 1 MG TAB PO SCH (09:52)
[2023-04-15] MEDS: ENOXAPARIN 40 MG/0.4 ML SYRINGE SQ SCH (09:53)
--- NOTE | 2023-04-15 12:54 | P.PN ---
Subjective Progress Note Date: 04/15/23 Principal diagnosis: status post intramedullary nail left intertrochanteric femur fracture Patient was evaluated today at bedside, she is resting comfortably, she has family present at bedside. Patient did progress a little bit with physical therapy today. She is very be discharged to home with home health care. They are long discussion today with the possibility of that and also having subacute rehab as an option. Pain is well-controlled currently. Currently has no hea daches, lightheadedness, chest pain or shortness of breath Objective - Vital Signs Vital signs: Vital Signs Temp 98.3 F 04/15/23 08:05 Pulse 110 H 04/15/23 08:05 Resp 14 04/15/23 08:05 BP 88/53 04/15/23 08:05 Pulse Ox 99 04/15/23 08:05 FiO2 Intake & Output 04/14/23 04/15/23 04/15/23 18:59 06:59 18:59 Output Total 310 2250 Balance -310 -2250 Output: Urine 310 2250 Uretheral (Shafer) 200 Other: Voiding Method Indwelling Catheter - Exam Left lower extremity: Incision is clean, dry, and intact. The foam dressings is in good condition. There is minimal soft tissue swelling and ecchymosis surrounding the medial and lateral aspects of the incision. Calf is soft, no tenderness with palpation. Plantar flexion, dorsiflexion, EHL, FHL are intact. Sensory exam to light touch throughout the extremity is intact, dorsal pedis pulses 2+. - Labs CBC & Chem 7: 04/15/23 07:42 04/12/23 14:34 Labs: Abnormal Lab Results - Last 24 Hours (Table) 04/14/23 04/15/23 Range/Units 07: 07:42 WBC 2.2 L (3.8-10.6) k/uL RBC 2.31 L (3.80-5.40) m/uL Hgb 8.1 L (11.4-16.0) gm/dL Hct 25.0 L (34.0-46.0) % MCV 108.1 H (80.0-100.0) fL MCH 35.1 H (25.0-35.0) pg RDW 18.4 H (11.5-15.5) % Lymphocytes # 0.2 L 0.4 L (1.0-4.8) k/uL Macrocytosis Marked A Assessment and Plan Assessment: Postoperative day #2 status post left intramedullary nail for intertrochanteric femur fracture Plan: Pain control, continue with current medications. Continue scheduled stool softeners DVT prophylaxis, Lovenox while in hospital Continue to ice the extremity Encourage incentive spirometer PT/OT, weight-bear as tolerated with walker Other medical specialty recommendations appreciated Discharge planning: Discussed with patient that we have subacute rehab available as an option for discharge, we'll continue to evaluate Time with Patient: Less than 30
[2023-04-15] MEDS: SODIUM CHLORIDE 0.9% 1,000 ML IV SCH (15:18)
[2023-04-15] MEDS: ONDANSETRON 4 MG/2 ML VIAL IVP PRN (18:26)
--- NOTE | 2023-04-15 20:08 | P.PN ---
Subjective Progress Note Date: 04/15/23 Principal diagnosis: bicytopenia Patient is doing well postop day 2 from orthopedic procedure, she walked to the bathroom with assistance. She is tolerating oral intake. Objective - Vital Signs Vital signs: Vital Signs Temp 98.3 F 04/15/23 08:05 Pulse 110 H 04/15/23 08:05 Resp 14 04/15/23 08:05 BP 88/53 04/15/23 08:05 Pulse Ox 99 04/15/23 08:05 FiO2 Intake & Output 04/14/23 04/15/23 04/15/23 18:59 06:59 18:59 Output Total 310 2250 Balance -310 -2250 Output: Urine 310 2250 Uretheral (Shafer) 200 Other: Voiding Method Indwelling Catheter - Constitutional General appearance: Present: average body habitus, cooperative, no acute distress - EENT Eyes: Present: anicteric sclerae, EOMI ENT: Present: hearing grossly normal - Respiratory Respiratory: bilateral: CTA - Cardiovascular Rhythm: regular Heart sounds: normal: S1, S2 Abnormal Heart Sounds: Absent: systolic murmur, diastolic murmur, rub, S3 Gallop, S4 Gallop, click, other - Neurologic Neurologic: Present: CNII-XII intact - Psychiatric Psychiatric: Present: A&O x's 3, appropriate affect, intact judgment & insight - Labs CBC & Chem 7: 04/15/23 07:42 04/12/23 14:34 Labs: Abnormal Lab Results - Last 24 Hours (Table) 04/14/23 04/15/23 Range/Units 07:26 07:42 WBC 2.2 L (3.8-10.6) k/uL RBC 2.31 L (3.80-5.40) m/uL Hgb 8.1 L (11.4-16.0) gm/dL Hct 25.0 L (34.0-46.0) % MCV 108.1 H (80.0-100.0) fL MCH 35.1 H (25.0-35.0) pg RDW 18.4 H (11.5-15.5) % Lymphocytes # 0.2 L 0.4 L (1.0-4.8) k/uL Macrocytosis Marked A Assessment and Plan (1) Raynaud disease Current Visit: Yes Status: Chronic Priority: Medium Code(s): I73.00 - RAYNAUD'S SYNDROME WITHOUT GANGRENE SNOMED Code(s): 600266045 (2) Bicytopenia Current Visit: Yes Status: Acute Priority: High Code(s): D75.89 - OTHER SPECIFIED DISEASES OF BLOOD AND BLOOD-FORMING ORGANS SNOMED Code(s): 44431760 Plan: Raynaud's disease -Treated by Rheumatology -Takes 25 mg by mouth of methotrexate every Wednesday -Takes folic acid 1 mg by mouth daily-cont. Folate 3.9. Leucovorin twice a day 3 days ordered as a folate rescue as pt on MTX. -Stat methotrexate level ordered-Pending -Collaborated with Rheumatology, hold methotrexate until seen in office Bicytopenia -Suspect secondary to treatment with marrow suppressive methotrexate, e xacerbated by acute stress of femur fracture -Hemoglobin stable 8.1, postop day 2, no gross evidence of bleeding or severe bruising/hematoma. CBC in the a.m. -WBC up to 2.2, normal ANC of 1.7, ANC is adequate. -CBC Daily while inpatient -Transfuse for hemoglobin less than 7 -Will monitor ANC, if it falls below 1000 will initiate G-CSF
[2023-04-15] MEDS: SENNOSIDES-DOCUSATE SODIUM 1 EACH TAB PO SCH (21:01)
[2023-04-16] MEDS: HYDROcodone/APAP 5-325MG 1 EACH TAB PO PRN (05:32)
--- NOTE | 2023-04-16 05:47 | PN ---
PROGRESS NOTE DATE OF SERVICE: 04/15/2023 CHIEF COMPLAINT: Status post left hip fracture and ORIF. HISTORY OF PRESENT ILLNESS: This lady is doing fairly well. She is not having a great deal of pain. She has had no shortness of breath, chest pain, nausea, etc. PHYSICAL EXAMINATION: VITAL SIGNS: Normal. GENERAL: She remains slightly pale. CHEST: Clear. CARDIAC: Normal except for her murmur. ABDOMEN: Soft, nontender. IMPRESSION: 1. Fracture of left hip. 2. Scleroderma. 3. Anemia. 4. Left carotid occlusive disease. 5. Aortic valve disease. PLAN: No change in program at this time and she is doing well. MMODL / IJN: [id number] /
[2023-04-16] MEDS: FERROUS SULFATE 325 MG TAB PO SCH (07:02)
[2023-04-16] MEDS: MULTIVITAMINS, THERA 1 EACH TAB PO SCH (08:40)
[2023-04-16] MEDS: FAMOTIDINE 20 MG TAB PO SCH (08:40)
[2023-04-16] MEDS: ENOXAPARIN 40 MG/0.4 ML SYRINGE SQ SCH (08:40)
[2023-04-16] MEDS: CALCIUM CARB-VIT D 500 MG-5 MCG TAB PO SCH (08:41)
[2023-04-16] MEDS: LEUCOVORIN 5 MG TAB PO SCH (08:41)
[2023-04-16] MEDS: MAG HYDROX/AL HYDROX/SIMETH 30 ML, diphenhydrAMINE ELIXIR 75 MG, LIDOCAINE VISCOUS 2% 3... PO SCH ×3 (08:41)
[2023-04-16] MEDS: FOLIC ACID 1 MG TAB PO SCH (08:41)
[2023-04-16] MEDS: ONDANSETRON 4 MG/2 ML VIAL IVP PRN (09:14)
[2023-04-16] MEDS ORDERED: polyethylene glycoL 3350 17 GM POWD.PACK PO SCH (09:15)
--- NOTE | 2023-04-16 09:35 | P.DS ---
Providers Date of admission: 04/12/23 14:21 Expected date of discharge: 04/16/23 Attending physician: Ortiz Nova Consults: 04/12/23 14:21 Consult Physician Routine Consulting Provider: Benny Muñzo Consult Reason/Comments: Hip fracture, surgical clearance Do you want consulting provider notified?: Yes 04/13/23 10:42 Consult Physician Routine Consulting Provider: Francisco Ambrose Consult Reason/Comments: Sclerderma, leukopernia, anemia, elev. LFTs Do you want consulting provider notified?: Yes Primary care physician: Benny Muñoz Hospital Course: Date of admission: 04/12/2023 Date of discharge: 04/16/2023 Admission diagnosis: Left hip IT fracture Discharge diagnosis: Same Attending physician: Dr. Nova Surgical procedures: Left hip IM nail Brief history: Patient is a 68-year-old female with a history of left hip IT fracture status post fall. At this point patient has failed conservative treatment measures and has opted to proceed with a elective left hip IM nail. Hospital course: Details of patient's surgery can be found in operative report. Patient tolerated the procedure well and was subsequently transported to orthopedic floor. Patient's orthopeidc and medical care was provided daily. Patient had daily laboratory tests performed for evaluation of overall blood counts. Patient had daily physical therapy to include strengthening range of motion as well as education with walker ambulation. Patient was treated with Lovenox for their postoperative DVT prophylaxis during their inpatient stay. Patient was noted to have a relatively uneventful postoperative course. Patient reported satisfactory pain control with oral pain medications by postoperative day 3. Patient showed satisfactory progress with physical therapy. Patient moved steadily through the program and had no difficulty meeting the goals by postoperative day 3. Given patient's otherwise satisfactory course and having met physical therapy goals, plan is to discharge patient home with health services on postoperative day 3. Discharge condition/disposition: Patient will be discharged home with health services in stable condition. Discharge medications: Instructions are given on resumption of patient's normal daily medications per primary care recommendation, in addition patient will be prescribed Lane; senna; aspirin. Discharge instructions: 1. Wound care and infection precautions, keep incision dry and covered while showering, no lotions, creams, moisturizers. No soaking, tubs, pools, hottubs. Do not scrub over the incision. 2. Weight-bear as tolerated with walker / cane until follow-up. 3. Ice and elevate when necessary. Do not exceed 20 minutes per hour with ice pack. 4. Utilize compression sleeve until seen at first follow up appointment. 5. Visiting nursing care. 6. Home physical therapy. 7. Pain meds and anticoagulants per prescription. 8. Pain medication has potential to cause constipation. Increase oral fluid and fiber intake. Contact primary care provider if you have not had a bowel movement within 48 hours after discharge 9. No anti-inflammatory medication until discussed at first post operative visit, this including Motrin, Aleve, Mobic, Diclofenac. 10. Follow up in office at 2 weeks postop with Julian Dior PA-C / Sylvester Hernandez PA-C 11. Follow up with your primary care doctor 7-10 days after discharge. 12. Contact [facility] with any questions, . Assessment: Left hip IT fracture Procedures: Left hip IM nail Patient Condition at Discharge: Good Plan - Discharge Summary New Discharge Prescriptions: New HYDROcodone/APAP 5-325MG [Lane 5-325] 1 tab PO Q6HR PRN #28 tab PRN Reason: Pain Sennosides/Docusate Sodium [Senna Plus 8.6-50 mg Softgel] 1 each PO DAILY #20 capsule Aspirin 325 mg PO DAILY #28 tab No Action Vit C/E/Zn/Coppr/Lutein/Zeaxan [Preservision Areds 2 Softgel] 1 cap PO DAILY Multivitamins, Thera [Multivitamin (formulary)] 1 tab PO DAILY metHOTREXate sodium 25 mg PO WE NIFEdipine XL [Procardia XL] 60 mg PO DAILY Folic Acid 1 mg PO DAILY Calcium Carbonate/Vitamin D3 [Calcium 600 mg-D3 10 Mcg (400 Iu)] 1 cap PO DAILY Romosozumab-Aqqg [Evenity] 210 mg SQ Q30D Discharge Medication List Multivitamins, Thera [Multivitamin (formulary)] 1 tab PO DAILY 05/06/18 [History] Vit C/E/Zn/Coppr/Lutein/Zeaxan [Preservision Areds 2 Softgel] 1 cap PO DAILY 05/06/18 [History] Calcium Carbonate/Vitamin D3 [Calcium 600 mg-D3 10 Mcg (400 Iu)] 1 cap PO DAILY 04/12/23 [History] Folic Acid 1 mg PO DAILY 04/12/23 [History] NIFEdipine XL [Procardia XL] 60 mg PO DAILY 04/12/23 [History] Romosozumab-Aqqg [Evenity] 210 mg SQ Q30D 04/12/23 [History] metHOTREXate sodium 25 mg PO WE 04/12/23 [History] Aspirin 325 mg PO DAILY #28 tab 04/16/23 [Rx] HYDROcodone/APAP 5-325MG [Lane 5-325] 1 tab PO Q6HR PRN #28 tab 04/16/23 [Rx] Sennosides/Docusate Sodium [Senna Plus 8.6-50 mg Softgel] 1 each PO DAILY #20 capsule 04/16/23 [Rx] Follow up Appointment(s)/Referral(s): Benny Muñoz MD [Primary Care Provider] - 1-2 days [facility], [NON-STAFF] - 1-2 Days Justin Dior PAC [PHYSICIAN [employer]] - 2 Weeks Patient Instructions/Handouts: ORIF of Hip Fracture (DC), ORIF of Hip Fracture (GEN) Activity/Diet/Wound Care/Special Instructions: Pt requires a bedside commode because they are room confined due to a hip fracture. Do not take Methotrexate until you see Dr Kaur Discharge instructions: 1. Wound care and infection precautions, keep incision dry and covered while showering, no lotions, creams, moisturizers. No soaking, tubs, pools, hottubs. Do not scrub over the incision. 2. Weight-bear as tolerated with walker / cane until follow-up. 3. Ice and elevate when necessary. Do not exceed 20 minutes per hour with ice pack. 4. Utilize compression sleeve until seen at first follow up appointment. 5. Visiting nursing care. 6. Home physical therapy. 7. Pain meds and anticoagulants per prescription. 8. Pain medication has potential to cause constipation. Increase oral fluid and fiber intake. Contact primary care provider if you have not had a bowel movement within 48 hours after discharge 9. No anti-inflammatory medication until discussed at first post operative visit, this including Motrin, Aleve, Mobic, Diclofenac. 10. Follow up in office at 2 weeks postop with Julian Dior PA-C / Sylvester Hernandez PA-C 11. Follow up with your primary care doctor 7-10 days after discharge. 12. Contact [facility] with any questions, . keep incision clean, dry, intact. okay to remove dressing beginning Wednesday04/20/2023. Once dressing is removed okay to shower over incision Discharge Disposition: HOME WITH HOME HEALTH SERVICES
--- NOTE | 2023-04-16 09:41 | P.PN ---
Subjective Progress Note Date: 04/16/23 Principal diagnosis: Left hip IT fracture Patient was seen at bedside this morning sitting up in chair with legs elevated. Patient says she did much better with physical therapy this morning. Patient says she walked out to the hallway and up-and-down stairs. Patient says she is looking forward to going home later today. Patient says the pain is controlled with medication. Patient says most the pain is localized the left hip at this time. Patient says she does have a walker at home. Patient says her sister will be able to help her out at home. Patient says she has not had bowel movement yet, however, patient says she has been passing gas. Patient denies any other changes at this time. Patient denies chest pain, fever, shortness breath, nausea, vomiting, change in vision, loss of bowel/bladder control. Objective - Vital Signs Vital signs: Vital Signs Temp 97.8 F 04/16/23 07:24 Pulse 69 04/16/23 07:24 Resp 18 04/16/23 07:24 BP 97/59 04/16/23 07:24 Pulse Ox 97 04/16/23 07:24 FiO2 Intake & Output 04/15/23 04/16/23 04/16/23 18:59 06:59 18:59 Other: # Voids 1 1 - Exam Left hip: Incision is clean, dry, and intact. The silver foam dressing is in good condition. There is minimal soft tissue swelling and ecchymosis surrounding the medial and lateral aspects of the incision. Calf is soft, no tenderness with palpation. Plantar flexion, dorsiflexion, EHL, FHL are intact. Sensory exam to light touch throughout the extremity is intact, dorsal pedis pulses 2+. - Labs CBC & Chem 7: 04/15/23 07:42 04/12/23 14:34 Assessment and Plan Assessment: 1. Left hip IT fracture - Postop day #3 status post left hip IM nail Plan: 1. Left hip IT fracture - left hip IM nail surgery performed 04/13/2023. Patient stable at bedside this morning. Patient did do well with therapy this morning and walked out into the [place] and up-and-down steps. Patient does have a walker at home. Continue pain medication as needed. Weight-bear as tolerated with walker and assistance as needed. Discharge home today with health services. 2. Appreciate medical management 3. Pain management - [place] 4. DVT prophylaxis - Lovenox in hospital. Going home with aspirin 325 mg daily 5. GI prophylaxis - senna 6. PT/OT - weightbearing as tolerated with walker and assistance as needed 7. Encourage incentive spirometer use 8. Discharge planning - discharge home today with health services Time with Patient: Less than 30
[2023-04-16 11:02] LABS: HCT 21.4 % (37.2-46.3); MCH 34.5 pg (27.0-32.0); MCHC 32.7 d/dL (32.0-37.0); MCV 105.4 FL (80.0-97.0); NRBC Per 100 WBC 0 X 10*3/uL (0.00-0.01); Platelet Count 127 X 10*3/uL (140-440); RBC 2.03 X 10*6/uL (4.10-5.20); RDW 17.4 % (11.5-14.5); WBC 2.49 X 10*3/uL (4.50-10.00)
[2023-04-16 11:53] LABS: Basophils # (A) 0 X 10*3/uL (0.00-0.10); Basophils % (A) 0 %; Eosinophils # (A) 0.06 X 10*3/uL (0.04-0.35); Eosinophils % (A) 2.4 %; Hypochromasia (M) 2+; Lymphocytes # (A) 0.55 X 10*3/uL (0.90-5.00); Lymphocytes % (A) 22.1 %; Macrocytosis (M) 2+; Monocytes # (A) 0.05 X 10*3/uL (0.20-1.00); Neutrophils # (A) 1.82 X 10*3/uL (1.80-7.70); Neutrophils % (A) 73.1 %
[2023-04-16] MEDS: traMADol 50 MG TAB PO PRN (12:06)
[2023-04-16 13:39] VITALS: BP 109/67; PULSE 87; RESP 17; TEMP 98.1
--- NOTE | 2023-04-16 14:39 | P.PN ---
Subjective Progress Note Date: 04/16/23 Principal diagnosis: bicytopenia Patient is reporting improvement in hip pain. Increasing ambulation. Denies any acute episodes of bleeding. Plans for discharge today. Objective - Vital Signs Vital signs: Vital Signs Temp 98.1 F 04/16/23 13:35 Pulse 87 04/16/23 13:35 Resp 17 04/16/23 13:35 BP 109/67 04/16/23 13:35 Pulse Ox 97 04/16/23 13:35 FiO2 Intake & Output 04/15/23 04/16/23 04/16/23 18:59 06:59 18:59 Weight 44.452 kg Other: Voiding Method Bedside Commode # Voids 1 1 1 # Bowel Movements 1 - Constitutional General appearance: Present: average body habitus, no acute distress - EENT Eyes: Present: anicteric sclerae, EOMI ENT: Present: hearing grossly normal - Respiratory Details: breathing even and unlabored - Cardiovascular Details: skin warm and dry - Integumentary Integumentary: Absent: cyanotic, jaundiced - Musculoskeletal Musculoskeletal Comment(s): decreased ROM of left hip - Psychiatric Psychiatric: Present: A&O x's 3, appropriate affect, intact judgment & insight - Labs CBC & Chem 7: 04/16/23 06:08 04/12/23 14:34 Labs: Abnormal Lab Results - Last 24 Hours (Table) 04/16/23 Range/Units 06:08 WBC 2.49 L (4.50-10.00) X 10*3/uL RBC 2.03 L (4.10-5.20) X 10*6/uL Hgb 7.0 L (12.0-15.0) d/dL Hct 21.4 L (37.2-46.3) % MCV 105.4 H (80.0-97.0) FL MCH 34.5 H (27.0-32.0) pg RDW 17.4 H (11.5-14.5) % Plt Count 127 L (140-440) X 10*3/uL Lymphocytes # 0.55 L (0.90-5.00) X 10*3/uL Monocytes # 0.05 L (0.20-1.00) X 10*3/uL Hypochromasia (manual) 2+ A Macrocytosis (manual) 2+ A Assessment and Plan (1) Bicytopenia Current Visit: Yes Status: Acute Priority: High Code(s): D75.89 - OTHER SPECIFIED DISEASES OF BLOOD AND BLOOD-FORMING ORGANS SNOMED Code(s): 64428347 (2) Raynaud disease Current Visit: Yes Status: Chronic Priority: Medium Code(s): I73.00 - RAYNAUD'S SYNDROME WITHOUT GANGRENE SNOMED Code(s): 028219605 Plan: Raynaud's disease -Treated by Rheumatology -Takes 25 mg by mouth of methotrexate every Wednesday -Takes folic acid 1 mg by mouth daily-cont. Folate 3.9. Leucovorin twice a day 3 days ordered as a folate rescue as pt on MTX. -Stat methotrexate level ordered, <0.05 -Spoke with Rheumatology, hold methotrexate until seen in office. Will continue Procardia, patient instructed to monitor blood pressure closely at home and if blood pressure continues to be on the lower end to hold medication and to call her electronic musical instrument repairer for further instructions on use of medication Bicytopenia -Suspect secondary to treatment with marrow suppressive methotrexate, exacerbated by acute stress of femur fracture -CBC today pending. Hemoglobin stable 8.1, postop day 3, no gross evidence of bleeding or severe bruising/hematoma. -WBC up to 2.2, normal ANC of 1.7, ANC is adequate. -CBC Daily while inpatient -Transfuse for hemoglobin less than 7 -Will monitor ANC, if it falls below 1000 will initiate G-CSF
== END 2023-04-16 15:25 | disposition home health service (06) | DRG 482 ==
LOC: EC 12:46 → 4SSUR 14:21
PROVIDERS: ADMIT Orthopaedic Surgery; ATTEND Orthopaedic Surgery
PROC: 0QS736Z Reposition Left Upper Femur with Intramedullary Internal Fixation Device, Percutaneous Approach (ICD-10-PCS; principal; 2023-04-13 07:30)
DX: S72.142A Displaced intertrochanteric fracture of left femur, initial encounter for closed fracture (principal); M34.9 Systemic sclerosis, unspecified; M81.8 Other osteoporosis without current pathological fracture; I35.9 Nonrheumatic aortic valve disorder, unspecified; I65.22 Occlusion and stenosis of left carotid artery; I73.00 Raynaud's syndrome without gangrene; D64.9 Anemia, unspecified; Z79.631 Long term (current) use of antimetabolite agent; Z79.899 Other long term (current) drug therapy; W01.0XXA Fall on same level from slipping, tripping and stumbling without subsequent striking against object, initial encounter; Z87.891 Personal history of nicotine dependence
CPT/HCPCS: 36415; 51702; 70496; 70498; 71045; 73502; 80053; 80204; 81001; 82607; 82728; 82746; 83921; 85025; 85610; 85730; 93306; 96361; 96374; 96375; 99285

== ENCOUNTER 2023-04-16 22:26 | Inpatient (IN) | payer MEDICARE, OTHER ==
[2023-04-17] MEDS ORDERED: NALOXONE 0.4 MG/ML 1 ML VIAL IV PRN (00:17)
--- NOTE | 2023-04-17 00:20 | ED ---
General Adult HPI - General Chief complaint: Recheck/Abnormal Lab/Rx Stated complaint: Weakness Time Seen by Provider: 04/17/23 00:07 Source: patient, RN notes reviewed, old records reviewed Mode of arrival: wheelchair Limitations: no limitations - History of Present Illness Initial comments: 68-year-old female with recent fall and hip fracture presents for reevaluation. Patient was discharged from the hospital earlier today there was plan for the patient to go to rehabilitation but she wanted to try to be discharged back home. Apparently the home situation is not working out and the patient is requesting placement as well as her family members were at bedside. No new issues, no new complaints. - Related Data Home Medications Medication Instructions Recorded Confirmed Multivitamins, Thera [Multivitamin 1 tab PO DAILY 05/06/18 04/12/23 (formulary)] Vit C/E/Zn/Coppr/Lutein/Zeaxan 1 cap PO DAILY 05/06/18 04/12/23 [Preservision Areds 2 Softgel] Calcium Carbonate/Vitamin D3 1 cap PO DAILY 04/12/23 04/12/23 [Calcium 600 mg-D3 10 Mcg (400 Iu)] Folic Acid 1 mg PO DAILY 04/12/23 04/12/23 NIFEdipine XL [Procardia XL] 60 mg PO DAILY 04/12/23 04/12/23 Romosozumab-Aqqg [Evenity] 210 mg SQ Q30D 04/12/23 04/12/23 metHOTREXate sodium 25 mg PO WE 04/12/23 04/12/23 Previous Rx's Medication Instructions Recorded Aspirin 325 mg PO DAILY #28 tab 04/16/23 Ferrous Sulfate [Iron (65 MG 325 mg PO BID #60 tab 04/16/23 Elemental)] HYDROcodone/APAP 5-325MG [[place] 1 tab PO Q6HR PRN #28 tab 04/16/23 5-325] Sennosides/Docusate Sodium [Senna 1 each PO DAILY #20 capsule 04/16/23 Plus 8.6-50 mg Softgel] Allergies Allergy/AdvReac Type Severity Reaction Status Date / Time No Known Allergies Allergy Verified 04/16/23 22:51 Review of Systems ROS Statement: Those systems with pertinent positive or pertinent negative responses have been documented in the HPI. ROS Other: All systems not noted in ROS Statement are negative. Past Medical History Additional Past Medical History / Comment(s): hx ulcer, Raynauds, History of Any Multi-Drug Resistant Organisms: None Reported Past Surgical History: Orthopedic Surgery Additional Past Surgical History / Comment(s): cataract surgery, surgery for ulcer, left hip sx Past Anesthesia/Blood Transfusion Reactions: No Reported Reaction Past Psychological History: No Psychological Hx Reported Smoking Status: Former smoker Past Alcohol Use History: None Reported Past Drug Use History: None Reported - Past Family History Mother Family Medical History: No Reported History General Exam Limitations: no limitations General appearance: alert, in no apparent distress Head exam: Present: atraumatic, normocephalic Eye exam: Present: normal appearance, PERRL ENT exam: Present: normal exam Neck exam: Present: normal inspection. Absent: tenderness Respiratory exam: Present: normal lung sounds bilaterally. Absent: respiratory distress, wheezes Cardiovascular Exam: Present: regular rate, normal rhythm GI/Abdominal exam: Present: soft. Absent: distended, tenderness Neurological exam: Present: alert Psychiatric exam: Present: normal affect, normal mood Skin exam: Present: warm, dry, intact Course Vital Signs 04/16/23 22:41 Temperature 98.1 F Pulse Rate 95 Respiratory 20 Rate Blood Pressure 114/65 O2 Sat by Pulse 95 Oximetry Medical Decision Making - Medical Decision Making Was pt. sent in by a medical professional or institution ([facility]oser, STRATEGY INTERN, urgent care, hospital, or residential...) When possible be specific @ -No Did you speak to anyone other than the patient for history (EMS, parent, family, police, friend...)? What history was obtained from this source @ -No Did you review nursing and triage notes (agree or disagree)? Why? @ -I reviewed and agree with nursing and triage notes Were old charts reviewed (outside hosp., previous admission, EMS record, old EKG, old radiological studies, urgent care reports/EKG's, residential records)? Report findings @ -No old charts were reviewed Differential Diagnosis (chest pain, altered mental status, abdominal pain women, abdominal pain men, vaginal bleeding, weakness, fever, dyspnea, syncope, headache, dizziness, GI bleed, back pain, seizure, CVA, palpatations, mental health, musculoskeletal)? @Recent hip fracture, will need rehabilitation EKG interpreted by me (3pts min.). @ -As above X-rays interpreted by me (1pt min.). @ -None done CT interpreted by me (1pt min.). @ -None done U/S interpreted by me (1pt. min.). @ -None done What testing was considered but not performed or refused? (CT, X-rays, U/S, labs)? Why? @ -None What meds were considered but not given or refused? Why? @ -None Did you discuss the management of the patient with other professionals (professionals i.e. Dr., PA, STRATEGY INTERN, lab, RT, psych nurse, older adult social work specialist, water filtration technician, teacher, chief development officer, case packer and sealer)? Give summary @Case discussed with Dr. Muñoz Was smoking cessation discussed for >3mins.? @ -No Was critical care preformed (if so, how long)? @ -No Were there social determinants of health that impacted care today? How? (Homelessness, low income, unemployed, alcoholism, drug addiction, transportation, low edu. Level, literacy, decrease access to med. care, senior living, rehab)? @ -No Was there de-escalation of care discussed even if they declined (Discuss DNR or withdrawal of care, Hospice)? DNR status @ -No What co-morbidities impacted this encounter? (DM, HTN, Smoking, COPD, CAD, Ca ncer, CVA, ARF, Chemo, Hep., AIDS, mental health diagnosis, sleep apnea, morbid obesity)? @ -[Recent hip fracture Was patient admitted / discharged? Hospital course, mention meds given and route, prescriptions, significant lab abnormalities, going to OR and other pertinent info. @ -[Patient will be admitted to Dr. Muñoz who is aware. Basic laboratory tests will be obtained, results are pending. Undiagnosed new problem with uncertain prognosis? @ -No Drug Therapy requiring intensive monitoring for toxicity (Heparin, Nitro, Insulin, Cardizem)? @ -No Were any procedures done? @ -No Diagnosis/symptom? @Hip fracture, needs residential placement for rehabilitation Acute, or Chronic, or Acute on Chronic? @Acute Uncomplicated (without systemic symptoms) or Complicated (systemic symptoms)? @ -default Side effects of treatment? @ -No Exacerbation, Progression, or Severe Exacerbation? @ -No Poses a threat to life or bodily function? How? (Chest pain, [place], [place], pneumonia, PE, COPD, DKA, ARF, appy, cholecystitis, CVA, Diverticulitis, Homicidal, Suicidal, threat to staff... and all critical care pts) @ -No Disposition Clinical Impression: Intertrochanteric fracture of left hip Disposition: ADMITTED IP TO THIS HOSP Condition: Stable Is patient prescribed a controlled substance at d/c from ED?: No Referrals: Benny Muñoz MD [Primary Care Provider] - 1-2 days Time of Disposition: 00:19
[2023-04-17 02:28] LABS: Anisocytosis Slight; Basophils % (A) 0 %; Eosinophils % (A) 1 %; HGB 8.7 gm/dL (11.4-16.0); Lymphocytes # (A) 0.4 k/uL (1.0-4.8); Lymphocytes % (A) 13 %; MCH 35.7 pg (25.0-35.0); MCHC 33.5 g/dL (31.0-37.0); Macrocytosis Marked; Mean Platelet Volume 9.2; Monocytes # (A) 0.1 k/uL (0-1.0); Monocytes % (A) 2 %; Neutrophils # (A) 2.3 k/uL (1.3-7.7); Neutrophils % (A) 83 %; Platelet Count 123 k/uL (150-450); RBC 2.44 m/uL (3.80-5.40); RDW 18.9 % (11.5-15.5); WBC 2.8 k/uL (3.8-10.6)
[2023-04-17 02:35] LABS: MCV 106.6 fL (80.0-100.0)
[2023-04-17 02:48] LABS: ALT 29 U/L (4-34); AST 35 U/L (14-36); African American GFR (CKD) >90 (>60 ml/min/1.73 sqM); Albumin 2.8 g/dL (3.5-5.0); Alkaline Phosphatase 105 U/L (38-126); Anion Gap 8 mmol/L; Blood Urea Nitrogen 13 mg/dL (7-17); Calcium 7.8 mg/dL (8.4-10.2); Carbon Dioxide 23 mmol/L (22-30); Chloride 103 mmol/L (98-107); Glucose 110 mg/dL (74-99); Non-African American GFR(CKD) >90 (>60 ml/min/1.73 sqM); Potassium 4.1 mmol/L (3.5-5.1); Sodium 134 mmol/L (137-145); Total Bilirubin 0.8 mg/dL (0.2-1.3); Total Protein 5.2 g/dL (6.3-8.2)
[2023-04-17] MEDS: ACETAMINOPHEN TAB 325 MG TAB PO PRN (06:31)
[2023-04-17] MEDS: HYDROcodone/APAP 5-325MG 1 EACH TAB PO PRN (20:56)
[2023-04-17] MEDS: FERROUS SULFATE 325 MG TAB PO SCH (20:58)
[2023-04-18] MEDS: FERROUS SULFATE 325 MG TAB PO SCH ×2 (09:07→21:16)
[2023-04-18] MEDS: FOLIC ACID 1 MG TAB PO SCH (09:07)
[2023-04-18] MEDS: ASPIRIN 325 MG TAB PO SCH (09:07)
[2023-04-18] MEDS: SENNOSIDES-DOCUSATE SODIUM 1 EACH TAB PO SCH (09:07)
[2023-04-18] MEDS: MULTIVITAMINS, THERA 1 EACH TAB PO SCH (09:07)
[2023-04-18] MEDS: CALCIUM CARB-VIT D 500 MG-5 MCG TAB PO SCH (09:07)
[2023-04-18] MEDS: VIT A,C & E-LUTEIN-MINERALS 1 EACH TAB PO SCH (09:08)
[2023-04-18] MEDS: HYDROcodone/APAP 5-325MG 1 EACH TAB PO PRN ×3 (09:09→21:15)
[2023-04-18] MEDS: ONDANSETRON 4 MG/2 ML VIAL IVP PRN (10:48)
[2023-04-19] MEDS: ONDANSETRON 4 MG/2 ML VIAL IVP PRN ×2 (03:48→11:19)
[2023-04-19] MEDS: HYDROcodone/APAP 5-325MG 1 EACH TAB PO PRN ×2 (03:48→20:15)
[2023-04-19] MEDS: FERROUS SULFATE 325 MG TAB PO SCH ×2 (08:04→20:15)
[2023-04-19] MEDS: ASPIRIN 325 MG TAB PO SCH (08:04)
[2023-04-19] MEDS: SENNOSIDES-DOCUSATE SODIUM 1 EACH TAB PO SCH (08:04)
[2023-04-19] MEDS: MULTIVITAMINS, THERA 1 EACH TAB PO SCH (08:04)
[2023-04-19] MEDS: CALCIUM CARB-VIT D 500 MG-5 MCG TAB PO SCH (08:05)
[2023-04-19] MEDS: VIT A,C & E-LUTEIN-MINERALS 1 EACH TAB PO SCH (08:05)
[2023-04-19] MEDS: FOLIC ACID 1 MG TAB PO SCH (08:05)
--- NOTE | 2023-04-19 14:46 | HP ---
HISTORY AND PHYSICAL CHIEF COMPLAINT: General debility. HISTORY OF PRESENT ILLNESS: This lady was discharged yesterday after she was treated for a left hip fracture. It was felt that she could go home with family, but apparently, it did not work out, and they brought her back to the emergency room. There has been no interval change. She has had no confusion, falls, chest pain, abdominal pain, fever, chills, etc. Past medical history, family history, and personal and social histories are all otherwise unremarkable or unchanged from her recent admitting and discharge summaries. She does have scleroderma and is on immunosuppressants. REVIEW OF SYSTEMS: She denies any headaches, confusion, chest pain, shortness of breath, abdominal pain, etc. PHYSICAL EXAMINATION: GENERAL: She is pale. This is her normal color, however. HEAD, EARS, EYES, NOSE, MOUTH, AND THROAT: Normal. NECK: Neck veins are not distended. CHEST: Clear. CARDIAC: Normal. ABDOMEN: Soft and nontender. EXTREMITIES: Normal. NEUROLOGIC: She is intact. IMPRESSION: 1. General debility. 2. Scleroderma. 3. Recent open reduction and internal fixation of left hip fracture. PLAN: 1. Bedrest. 2. Physical therapy. 3. Discharge planning with Assistant Media Planner. MMODL / IJN: [id number] /
[2023-04-19 16:40] VITALS: BMI 17.9
--- NOTE | 2023-04-20 02:47 | PN ---
PROGRESS NOTE DATE OF SERVICE: 04/18/2023 CHIEF COMPLAINT: Failure to thrive. HISTORY OF PRESENT ILLNESS: Jacques is doing well. She has no problems. She is eating. She has no chest pain, fever, no chills, abdominal pain, etc. PHYSICAL EXAMINATION: GENERAL: She remains slightly pale. HEAD, EARS, EYES, NOSE, MOUTH AND THROAT: Normal. CHEST: Clear. CARDIAC: Normal. ABDOMEN: Soft, nontender. IMPRESSION: 1. Status post left hip fracture. 2. Scleroderma. PLAN: Refer to Field Instructor for discharge planning. MMODL / IJN: [id number] /
--- NOTE | 2023-04-20 02:47 | PN ---
PROGRESS NOTE DATE OF SERVICE: 04/17/2023 CHIEF COMPLAINT: Failure to thrive and inability to be maintained at home. HISTORY OF PRESENT ILLNESS: This lady is doing well. Vital signs are normal. She has no complaints. PHYSICAL EXAMINATION: CHEST: Clear. CARDIAC: Normal. ABDOMEN: Soft, nontender. IMPRESSION: 1. Status post left hip fracture. 2. Scleroderma. 3. Inability to manage at home. PLAN: residential placement for rehab. MMODL / IJN: [id number] /
[2023-04-20] MEDS: HYDROcodone/APAP 5-325MG 1 EACH TAB PO PRN ×4 (04:11→21:16)
[2023-04-20] MEDS: MULTIVITAMINS, THERA 1 EACH TAB PO SCH (08:31)
[2023-04-20] MEDS: CALCIUM CARB-VIT D 500 MG-5 MCG TAB PO SCH (08:31)
[2023-04-20] MEDS: FERROUS SULFATE 325 MG TAB PO SCH ×2 (08:31→21:17)
[2023-04-20] MEDS: SENNOSIDES-DOCUSATE SODIUM 1 EACH TAB PO SCH (08:31)
[2023-04-20] MEDS: VIT A,C & E-LUTEIN-MINERALS 1 EACH TAB PO SCH (08:31)
[2023-04-20] MEDS: FOLIC ACID 1 MG TAB PO SCH (08:31)
[2023-04-20] MEDS: ASPIRIN 325 MG TAB PO SCH (08:31)
[2023-04-20] MEDS: NYSTATIN 100,000 UNIT/ML SUSP 500,000 UNIT/5 ML CUP PO SCH ×3 (11:55→22:15)
[2023-04-20] MEDS: ACETAMINOPHEN TAB 325 MG TAB PO PRN (11:55)
[2023-04-20] MEDS: ONDANSETRON 4 MG/2 ML VIAL IVP PRN ×2 (16:06→23:16)
[2023-04-20] MEDS ORDERED: ZINC OXIDE PASTE (Z-GUARD) 1 APPLIC APPLIC TOPICAL PRN (23:22)
--- NOTE | 2023-04-21 03:10 | PN ---
PROGRESS NOTE DATE OF SERVICE: 04/20/2023 CHIEF COMPLAINT: Status post left hip fracture and general debility. HISTORY OF PRESENT ILLNESS: The patient is doing fairly well. She is complaining of some pain in the mouth. PHYSICAL EXAM: CHEST: Clear. CARDIAC: Completely normal. MOUTH: Oral cavity appears to be normal. IMPRESSION: 1. Stomatitis. 2. Status post left hip fracture. 3. Scleroderma. 4. General debility. PLAN: 1. Nystatin oral suspension 3 or 4 times a day swish and swallow. 2. Bed is being arranged for her at [facility]. However, they will take her as long as she is receiving her immunosuppressants for her scleroderma. This is because of cost. I contacted Dr. Kaur who is a level vial grinder who insists that she must stay on this. Plan at this time is that she will be discharged tomorrow to go get the infusion and then go to [facility] with the hope that she would be out of [facility] before the next infusion would be due. MMKATERIN / EMMANUELLEN: [id number] /
[2023-04-21] MEDS ORDERED: metHOTREXate sodium 2.5 MG TAB PO SCH (09:00)
[2023-04-21] MEDS: MULTIVITAMINS, THERA 1 EACH TAB PO SCH (09:30)
[2023-04-21] MEDS: SENNOSIDES-DOCUSATE SODIUM 1 EACH TAB PO SCH (09:30)
[2023-04-21] MEDS: ASPIRIN 325 MG TAB PO SCH (09:30)
[2023-04-21] MEDS: CALCIUM CARB-VIT D 500 MG-5 MCG TAB PO SCH (09:31)
[2023-04-21] MEDS: FOLIC ACID 1 MG TAB PO SCH (09:31)
[2023-04-21] MEDS: FERROUS SULFATE 325 MG TAB PO SCH (09:31)
[2023-04-21] MEDS: NYSTATIN 100,000 UNIT/ML SUSP 500,000 UNIT/5 ML CUP PO SCH ×2 (09:35→12:46)
[2023-04-21] MEDS: VIT A,C & E-LUTEIN-MINERALS 1 EACH TAB PO SCH (09:35)
[2023-04-21] MEDS: ONDANSETRON 4 MG/2 ML VIAL IVP PRN (10:45)
[2023-04-21 12:04] VITALS: BP 94/60; PULSE 88; RESP 15; TEMP 98.9
--- NOTE | 2023-04-21 13:37 | DS ---
DISCHARGE SUMMARY CHIEF COMPLAINT: General debility. HISTORY OF PRESENT ILLNESS AND PHYSICAL EXAMINATION: Details of this lady's history and physical can be found in the initial workup. LABORATORY STUDIES: While she is in the hospital, she had laboratory studies, details of which can be found in the laboratory section of her chart. COURSE IN THE HOSPITAL: After admission, she was placed on bedrest, started on intravenous fluids and physical therapy. She was referred to [facility] for placement for rehab. Arrangements were made for her to go to [facility] on the and she will go there on activity as tolerated and her usual medications. Before she has entered into the group home, she will go and receive her monthly injection of romosozumab. She will be maintained on her other medications for her scleroderma at the request of her corrugator machine operator. FINAL DIAGNOSES: 1. General debility and weakness following open reduction internal fixation of left hip. 2. Scleroderma. 3. Anemia. 4. Pancytopenia. 5. Hypertension. OPERATIONS: None. CONSULTATION: None. CONDITION: She is improved. MMKATERIN / LISA: [id number] /
[2023-04-21] MEDS ORDERED: ROMOSOZUMAB AQQG 105 MG/1.17 ML SQ SCH (16:30)
--- NOTE | 2023-04-22 01:16 | PN ---
PROGRESS NOTE DATE OF SERVICE: 04/19/2023 CHIEF COMPLAINT: General debility and failure to thrive. HISTORY OF PRESENT ILLNESS: This lady is doing well and is having no problems. She is ambulating in the meeting. PHYSICAL EXAMINATION: CHEST: Clear. CARDIAC: Normal. ABDOMEN: Soft, nontender. IMPRESSION: General debility. PLAN: Continue to work on a discharge plan. She will try go to a [facility]. MMODL / IJN: [id number] /
--- NOTE | 2023-04-22 01:16 | PN ---
PROGRESS NOTE DATE OF SERVICE: 04/20/2023 CHIEF COMPLAINT: Generalized weakness and debility. HISTORY OF PRESENT ILLNESS: This lady is doing well and awaiting a discharge plan to a [facility]. PHYSICAL EXAMINATION: GENERAL: She is awake and alert. CHEST: Clear. CARDIAC: Normal. ABDOMEN: Soft, nontender. IMPRESSION: General debility and weakness following left hip replacement. PLAN: Await discharge plan. MMODL / IJN: [id number] /
== END 2023-04-21 14:35 | DRG 641 ==
LOC: EC 22:26 → 5NMEDONC 04-17 00:17
PROVIDERS: ADMIT Family Medicine; ATTEND Family Medicine
DX: R62.7 Adult failure to thrive (principal); D84.821 Immunodeficiency due to drugs; D61.818 Other pancytopenia; B37.0 Candidal stomatitis; M34.9 Systemic sclerosis, unspecified; S72.142D Displaced intertrochanteric fracture of left femur, subsequent encounter for closed fracture with routine healing; I73.00 Raynaud's syndrome without gangrene; I10 Essential (primary) hypertension; Z79.60 Long term (current) use of unspecified immunomodulators and immunosuppressants; Z79.631 Long term (current) use of antimetabolite agent; Z79.82 Long term (current) use of aspirin; Z79.899 Other long term (current) drug therapy; Z87.891 Personal history of nicotine dependence; Z96.642 Presence of left artificial hip joint
CPT/HCPCS: 80053; 85025; 99285

== ENCOUNTER 2024-11-06 19:23 | Inpatient (IN) | payer MEDICARE, OTHER ==
--- NOTE | 2024-11-06 20:22 | ED ---
Abdominal Pain HPI - General Source: patient, family Mode of arrival: ambulatory Limitations: no limitations <Arelis Rolon - Last Filed: 11/06/24 20:21> <Mable Ray - Last Filed: 11/10/24 11:39> - General Chief Complaint: Abdominal Pain Stated Complaint: Abd Pain-Right side Time Seen by Provider: 11/06/24 20:21 - History of Present Illness Initial Comments: Quick [id number] female presenting for right-sided abdominal pain/back pain x 2 days. Denies change in bowel or bladder habits. Reports the pain as a 9 out of 10. (Arelis Rolon) Patient is a 69-year-old female no significant past medical history presenting today for abdominal pain. Patient states pain began 2 days prior to arrival originating in the right side of her abdomen and radiating towards her back. Patient describes the pain as sharp and constant. She has tried home oxycodone for pain relief but no relief. Last bowel movement was 2 days ago after the pain began and was a normal stool for her. Not black or bloody. The patient has had nausea but no episodes of emesis. No fevers or chills. She denies shortness of breath or chest pain. Surgical history includes "ulcer surgery". She denies dysuria or hematuria. (Mable Ray) - Related Data Home Medications Medication Instructions Recorded Confirmed Multivitamins, Thera [Multivitamin 1 tab PO DAILY 05/06/18 11/07/24 (formulary)] HYDROcodone/APAP 5-325MG [[place] 0.5 - 1 tab PO DAILY PRN 11/07/24 11/07/24 5-325] Ondansetron [Zofran] 4 mg PO BID PRN 11/07/24 11/07/24 Allergies Allergy/AdvReac Type Severity Reaction Status Date / Time No Known Allergies Allergy Verified 11/07/24 07:59 Review of Systems ROS Other: All systems not noted in ROS Statement are negative. <Arelis Rolon - Last Filed: 11/06/24 20:21> ROS Other: All systems not noted in ROS Statement are negative. <Mable Ray - Last Filed: 11/10/24 11:39> ROS Statement: Those systems with pertinent positive or pertinent negative responses have been documented in the HPI. Past Medical History Additional Past Medical History / Comment(s): hx ulcer, Raynauds, osteoporosis History of Any Multi-Drug Resistant Organisms: None Reported Past Surgical History: Orthopedic Surgery Additional Past Surgical History / Comment(s): cataract surgery, surgery for ulcer, left hip sx Past Anesthesia/Blood Transfusion Reactions: No Reported Reaction Past Psychological History: No Psychological Hx Reported Smoking Status: Former smoker Past Alcohol Use History: None Reported Past Drug Use History: None Reported - Past Family History Mother Family Medical History: No Reported History <Arelis Rolon - Last Filed: 11/06/24 20:21> General Exam Limitations: no limitations <Arelis Rolon - Last Filed: 11/06/24 20:21> <Mable Ray - Last Filed: 11/10/24 11:39> - General Exam Comments Initial Comments: Visual Physical Exam General: Well-appearing, nontoxic, no acute distress. Head: Normocephalic, atraumatic Eyes: PERRLA, EOMI ENT: Airway patent Chest: Nonlabored breathing Skin: No visual rash, normal skin tone Neuro: Alert and oriented 3 Musculoskeletal: No gross abnormalities (Arelis Rolon) PE: CONSTITUTIONAL: No apparent distress, chronically ill-appearing SKIN: Warm, dry, no jaundice, hives or petechiae EYES: Pupils are equally round, extraocular movements intact without nystagmus, clear conjunctiva, non-icteric sclera HENT: Normocephalic, atraumatic, moist mucus membranes, oropharynx clear without exudates NECK: , Full range of motion, normal appearance PULMONARY: Decreased breath sounds in the right lung base without wheezes, rhonchi, or rales, normal excursion, no accessory muscle use and no stridor] CARDIOVASCULAR: Regular rate, rhythm, normal S1 and S2. No appreciated murmurs, rubs or gallops. Strong radial pulses with intact distal perfusion. No lower extremity edema GASTROINTESTINAL: Soft, active bowel sounds throughout, right upper quadrant and right sided abdominal tenderness to palpation non-distended, no palpable masses, no rebound or guarding. No hepatosplenomegaly GENITOURINARY: MUSCULOSKELETAL: Extremities have no gross deformity, no edema, redness, or swelling. No calf swelling NEUROLOGIC:_a/o x 3, GCS 15, normal mentation and speech. Moves all extremities x 4 without motor or sensory deficit PSYCHIATRIC:_normal mood and affect, thought process is clear and linear (Mable Ray) Course Vital Signs 11/06/24 11/06/24 11/07/24 20:03 23:19 00:00 Temperature 98.1 F Pulse Rate 57 L 107 H 91 Pulse Rate [ Entertainment Director ] Respiratory 28 H 25 H 25 H Rate Blood Pressure 88/64 112/53 93/56 Blood Pressure [Left Arm] O2 Sat by Pulse 88 L 95 98 Oximetry 11/07/24 11/07/24 11/07/24 04:00 06:48 07:51 Temperature 98.2 F Pulse Rate 84 82 Pulse Rate [ 86 Entertainment Director ] Respiratory 17 19 18 Rate Blood Pressure 98/65 96/53 Blood Pressure 103/50 [Left Arm] O2 Sat by Pulse 98 99 95 Oximetry 11/07/24 11/07/24 11/07/24 12:00 12:15 12:20 Temperature Pulse Rate Pulse Rate [ 80 88 84 Entertainment Director ] Respiratory 18 18 18 Rate Blood Pressure Blood Pressure 85/51 87/52 88/53 [Left Arm] O2 Sat by Pulse 95 96 95 Oximetry 11/07/24 11/07/24 11/07/24 12:35 16:00 22:56 Temperature Pulse Rate 77 Pulse Rate [ 86 75 Entertainment Director ] Respiratory 18 16 18 Rate Blood Pressure 100/60 Blood Pressure 87/52 99/57 [Left Arm] O2 Sat by Pulse 95 95 Oximetry 11/07/24 23:59 Temperature 98.1 F Pulse Rate Pulse Rate [ Entertainment Director ] Respiratory Rate Blood Pressure Blood Pressure [Left Arm] O2 Sat by Pulse Oximetry Medical Decision Making <Arelis Rolon - Last Filed: 11/06/24 20:21> - Lab Data Result diagrams: 11/09/24 03:42 11/10/24 06:22 <Mable Ray - Last Filed: 11/10/24 11:39> - Medical Decision Making I completed the quick note portion of this chart signed Arelis Rolon PA-C (Arelis Rolon) Was pt. sent in by a medical professional or institution (, PA, SPORTS NUTRITIONIST, urgent care, hospital, or [facility]...) When possible be specific @ -No Did you speak to anyone other than the patient for history (EMS, parent, family, police, friend...)? What history was obtained from this source @ -No Did you review nursing and triage notes (agree or disagree)? Why? @ -I reviewed nursing and triage notes Differential Diagnosis (chest pain, altered mental status, abdominal pain women, abdominal pain men, vaginal bleeding, weakness, fever, dyspnea, syncope, headache, dizziness, GI bleed, back pain, seizure, CVA, palpatations, mental health, musculoskeletal)? @ -Differential Abdominal Pain Women: Appendicitis, Cholecystitis, diverticulosis, ischemic bowel, pancreatitis, hepatitis, UTI, gastroenteritis, AAA, incarcerated hernia, bowel obstruction, constipation, inflammatory bowel, hepatitis, peptic ulcer disease, splenic infarction, perforated viscus, PID, kidney stone this is not meant to be an all-inclusive list EKG interpreted by me (3pts min.). Sinus rhythm, rate 87 bpm intervals within acceptable limits, normal axis, no significant ST elevations or depressions, no ischemic changes no arrhythmia X-rays interpreted by me (1pt min.). @ -None done CT interpreted by me (1pt min.). @Personally viewed CT chest, shows right pleural effusion with right sided lung mass, personally viewed CT abdomen pelvis, appears to show right sided lung mass previously mentioned without acute intraadbominal process, appendicitis or obstruction I agree with radiologist interpretation U/S interpreted by me (1pt. min.). @ -None done What testing was considered but not performed or refused? (CT, X-rays, U/S, labs)? Why? @ -None What meds were considered but not given or refused? Why? @ -None Did you discuss the management of the patient with other professionals (professionals i.e. , PA, SPORTS NUTRITIONIST, lab, RT, psych nurse, director social service, radon inspector, teacher, humane officer, case monitor)? Give summary @ -No Was smoking cessation discussed for >3mins.? @ -No Was critical care preformed (if so, how long)? @ -Yes, 35 minutes Were there social determinants of health that impacted care today? How? (Homelessness, low income, unemployed, alcoholism, drug addiction, transportation, low edu. Level, literacy, decrease access to med. care, assisted, rehab)? @ -No Was there de-escalation of care discussed even if they declined (Discuss DNR or withdrawal of care, Hospice)? @ -No What co-morbidities impacted this encounter? (DM, HTN, Smoking, COPD, CAD, Cancer, CVA, ARF, Chemo, Hep., AIDS, mental health diagnosis, sleep apnea, morbid obesity)? @ -None Was patient admitted / discharged? Hospital course, mention meds given and route, prescriptions, significant lab abnormalities, going to OR and other pertinent info. @ -Admission -this is a 69-year-old female no significant medical history pres enting today for right-sided abdominal pain x 2 days. Patient was initially seen and assessed in triage by triage provider, preliminary labs and imaging were ordered. Including CBC, CMP, lactic, CT ab and pelvis with contrast. Vital signs on arrival show bradycardia with heart rate 57, respiratory rate 28, hypotension blood pressure 88/64 pulse ox 88% on room air, patient is afebrile temp 98.1. For this reason because patient does meet SIRS criteria, Rocephin, blood culture and IV fluids were added. Of note, pt did spend some time in the waiting room after triage provider's assessment due to ED at overflow capacity 2/2 multiple boarding patients in the ED. On my assessment blood pressure is in the 90s over 60s with a MAP of approximately 70. Heart rate is 116, pulse ox is 85% on room air, patient was placed on 3 L oxygen nasal cannula with subsequent improvement in oxygenation. CT abdomen pelvis showed a masslike lesion in the right middle lobe of the lung as well as some moderate to large pleural pleural effusion. CT PE study added. Patient's labs are significant for Leukocytosis white blood count is 62,000, neutrophils 56.3, platelets 801, alk phos 268, combined with CT findings concerning for malignancy which I did discuss with the patient. Discussed with patient obtaining CT chest and anticipated admission to which she was agreeable. Lactic 2.7, concerning for severe sepsis. CT shows airspace consolidation of the right lung base measuring approximately 5.4 x 5.8 cm concerning for lung cancer, surrounding airspace consolidation concerning for pneumonia with right large pleural effusion. Updated patient these findings and discussed the possibility of lung mass being concerning for malignancy. Pt understanding and all questions were answered. BP stablized after 2L IV fluids (40cc /kg bolus), pain controlled. Case discussed with Dr. Muñoz who kindly accepted pt for admission. Undiagnosed new problem with uncertain prognosis? @ -No Drug Therapy requiring intensive monitoring for toxicity (Heparin, Nitro, Insulin, Cardizem)? @ -No Were any procedures done? @ -No Diagnosis/symptom? Lung mass, pneumonia, acute hypoxemic respiratory failure, severe sepsis Acute, or Chronic, or Acute on Chronic? @acute Uncomplicated (without systemic symptoms) or Complicated (systemic symptoms)? @complicated Side effects of treatment? @ -No Exacerbation, Progression, or Severe Exacerbation? @ -No Poses a threat to life or bodily function? How? (Chest pain, [place], DC, pneumonia, PE, COPD, DKA, ARF, appy, cholecystitis, CVA, Diverticulitis, Homicidal, Suicidal, threat to staff... and all critical care pts) yes if left untreated could progress to septic shock and (Mable Ray) - Lab Data Lab Results 11/06/24 11/06/24 11/06/24 Range/Units 20:53 20:53 20:53 WBC 62.66 H* (4.50-10.00) 10*3/uL RBC 4.38 (4.10-5.20) 10*6/uL Hgb 13.4 (12.0-15.0) g/dL Hct 36.9 L (37.2-46.3) % MCV 84.2 (80.0-97.0) fL MCH 30.6 (27.0-32.0) pg MCHC 36.3 (32.0-37.0) g/dL Plt Count 801 H (140-440) 10*3/uL MPV 9.2 L (9.5-12.2) fL Immature Gran % (Auto) 3.4 % Neutrophils % 89.9 % Lymphocytes % 3.2 % Monocytes % 3.4 % Eosinophils % 0.1 % Basophils % 0.0 % Immature Gran # 2.15 H (0.00-0.04) 10*3/uL Neutrophils # 56.32 H (1.80-7.70) 10*3/uL Lymphocytes # 1.99 (0.90-5.00) 10*3/uL Monocytes # 2.14 H (0.20-1.00) 10*3/uL Eosinophils # 0.04 (0.04-0.35) 10*3/uL Basophils # 0.02 (0.00-0.10) 10*3/uL Manual Slide Review Performed Sodium 130 L (137-145) mmol/L Potassium 5.0 (3.5-5.1) mmol/L Chloride 95 L (98-107) mmol/L Carbon Dioxide 24 (22-30) mmol/L Anion Gap 11 mmol/L BUN 28 H (7-17) mg/dL Creatinine 0.88 (0.52-1.04) mg/dL Est GFR (CKD-EPI)AfAm 77 (>60 ml/min/1.73 sqM) Est GFR (CKD-EPI)NonAf 67 (>60 ml/min/1.73 sqM) Glucose 105 H (74-99) mg/dL Lactic Ac Sepsis Rflx Plasma Lactic Acid Todd 2.7 H* (0.7-2.0) mmol/L Calcium 8.3 L (8.4-10.2) mg/dL Total Bilirubin 0.7 (0.2-1.3) mg/dL AST 57 H (14-36) U/L ALT 26 (4-34) U/L Alkaline Phosphatase 268 H (38-126) U/L Total Protein 6.1 L (6.3-8.2) g/dL Albumin 2.6 L (3.5-5.0) g/dL Lipase 26 (23-300) U/L 11/06/24 11/07/24 Range/Units 22:12 00:21 WBC (4.50-10.00) 10*3/uL RBC (4.10-5.20) 10*6/uL Hgb (12.0-15.0) g/dL Hct (37.2-46.3) % MCV (80.0-97.0) fL MCH (27.0-32.0) pg MCHC (32.0-37.0) g/dL Plt Count (140-440) 10*3/uL MPV (9.5-12.2) fL Immature Gran % (Auto) % Neutrophils % % Lymphocytes % % Monocytes % % Eosinophils % % Basophils % % Immature Gran # (0.00-0.04) 10*3/uL Neutrophils # (1.80-7.70) 10*3/uL Lymphocytes # (0.90-5.00) 10*3/uL Monocytes # (0.20-1.00) 10*3/uL Eosinophils # (0.04-0.35) 10*3/uL Basophils # (0.00-0.10) 10*3/uL Manual Slide Review Sodium (137-145) mmol/L Potassium (3.5-5.1) mmol/L Chloride (98-107) mmol/L Carbon Dioxide (22-30) mmol/L Anion Gap mmol/L BUN (7-17) mg/dL Creatinine (0.52-1.04) mg/dL Est GFR (CKD-EPI)AfAm (>60 ml/min/1.73 sqM) Est GFR (CKD-EPI)NonAf (>60 ml/min/1.73 sqM) Glucose (74-99) mg/dL Lactic Ac Sepsis Rflx Y Plasma Lactic Acid Todd 1.1 (0.7-2.0) mmol/L Calcium (8.4-10.2) mg/dL Total Bilirubin (0.2-1.3) mg/dL AST (14-36) U/L ALT (4-34) U/L Alkaline Phosphatase (38-126) U/L Total Protein (6.3-8.2) g/dL Albumin (3.5-5.0) g/dL Lipase (23-300) U/L Disposition <Arelis Rolon - Last Filed: 11/06/24 20:21> <Mable Ray - Last Filed: 11/10/24 11:39> Clinical Impression: Pneumonia, Lung mass, Acute hypoxic respiratory failure Disposition: ADMITTED IP TO THIS HOSP Condition: Stable
[2024-11-06 21:05] LABS: Basophils # (A) 0.02 10*3/uL (0.00-0.10); Eosinophils # (A) 0.04 10*3/uL (0.04-0.35); Eosinophils % (A) 0.1 %; HCT 36.9 % (37.2-46.3); HGB 13.4 g/dL (12.0-15.0); Lymphocytes # (A) 1.99 10*3/uL (0.90-5.00); Lymphocytes % (A) 3.2 %; MCH 30.6 pg (27.0-32.0); MCHC 36.3 g/dL (32.0-37.0); MCV 84.2 fL (80.0-97.0); Mean Platelet Volume 9.2 fL (9.5-12.2); Monocytes # (A) 2.14 10*3/uL (0.20-1.00); Monocytes % (A) 3.4 %; Neutrophils # (A) 56.32 10*3/uL (1.80-7.70); Neutrophils % (A) 89.9 %; Platelet Count 801 10*3/uL (140-440); RBC 4.38 10*6/uL (4.10-5.20); RDW 13.9 % (11.5-14.5)
[2024-11-06 21:26] LABS: ALT 26 U/L (4-34); AST 57 U/L (14-36); African American GFR (CKD) 77 (>60 ml/min/1.73 sqM); Albumin 2.6 g/dL (3.5-5.0); Alkaline Phosphatase 268 U/L (38-126); Anion Gap 11 mmol/L; Blood Urea Nitrogen 28 mg/dL (7-17); Calcium 8.3 mg/dL (8.4-10.2); Carbon Dioxide 24 mmol/L (22-30); Chloride 95 mmol/L (98-107); Glucose 105 mg/dL (74-99); Lipase 26 U/L (23-300); Non-African American GFR(CKD) 67 (>60 ml/min/1.73 sqM); Sodium 130 mmol/L (137-145); Total Bilirubin 0.7 mg/dL (0.2-1.3); Total Protein 6.1 g/dL (6.3-8.2)
[2024-11-06 21:54] LABS: WBC 62.66 10*3/uL (4.50-10.00)
--- NOTE | 2024-11-06 22:01 | CT ---
EXAMINATION TYPE: CT abdomen pelvis w con DATE OF EXAM: 11/06/2024 9:53 PM COMPARISON: None CLINICAL INDICATION: Female, 69 years old with history of RLQ abd pain; Pt presents to ED for c/o rig ht side, abdominal and back x2 days. Pt denies any changes to bowel and bladder habits. TECHNIQUE: Axial CT abdomen pelvis w con;Sagittal and coronal reformats were created on a separate w orkstation. Contrast used:100ml mL of Isovue 300 with IV Contrast, (none if empty) Oral contrast used: without Oral Contrast (none if empty) CT DLP: 538.8 mGycm, Automated exposure control for dose reduction was used. FINDINGS: LOWER CHEST: Moderate to large right pleural effusion with cystic lesion in the right middle lobe silvano suring 49 x 40 mm. ABDOMEN LIVER: Diffusely hypoattenuating parenchyma. GALLBLADDER AND BILE DUCTS: Unremarkable. PANCREAS: Scattered osseous lesions are within the parenchyma. SPLEEN: Unremarkable. ADRENAL GLANDS: Unremarkable. KIDNEYS AND URETERS: No evidence of hydronephrosis or obstructing renal calculus. The ureters are unr emarkable. The right kidney has a more inferior position in the abdomen compared to the left. PELVIS BLADDER: No evidence for wall thickening or mass given limitations of exam. REPRODUCTIVE: The uterus is surgically absent. ABDOMEN & PELVIS STOMACH AND BOWEL: No evidence of bowel obstruction. Moderate hiatal hernia present. Circumferential wall thickening of the distal esophagus. The appendix is visualized. Scattered colonic diverticula. PERITONEUM/RETROPERITONEUM: No evidence of pneumoperitoneum or free fluid. VASCULATURE: Moderate atherosclerotic calcifications are present throughout the abdominal aorta and i ts branches. No evidence of aortic aneurysm. MUSCULOSKELETAL: No acute osseous abnormalities, fixation changes to the left femur. Hardware appears in appropriate position. T10 and T11 vertebral body superior endplate Schmorl's nodes. LYMPH NODES: No gross evidence for lymphadenopathy. SOFT TISSUE/ABDOMINAL WALL: Small fat-containing umbilical hernia. IMPRESSION: 1. No evidence for right lower quadrant acute process to correlate patient's pain. Right middle lobe cystic lesion possibly a mass in the right middle lobe with moderate to large pleural effusion. Furt her evaluation of the thorax should be performed. 2. Circumferential wall thickening of the distal esophagus correlate for esophagitis. 3. Hepatic steatosis. 4. Colonic diverticulosis. 5. Scattered calcifications throughout the pancreas parenchyma suggestive of chronic pancreatitis ch anges. 6. Moderate hiatal hernia. [facility], , 11/06/2024 9:59 PM
[2024-11-06] MEDS: SODIUM CHLORIDE 0.9% 1,000 ML IV ONE (22:12)
[2024-11-06] MEDS: cefTRIAXone IN SWFI 1,000 MG/10 ML SYRINGE IVP STA (22:21)
[2024-11-06] MEDS: ONDANSETRON 4 MG/2 ML VIAL IVP STA (22:31)
[2024-11-06] MEDS: MORPHINE SULFATE 4 MG/ML SYRINGE IVP STA (22:32)
[2024-11-06] MEDS: ACETAMINOPHEN IV (For NPO) 1,000 MG in EMPTY BAG 1 BAG IVPB ONE (22:48)
[2024-11-07] MEDS: SODIUM CHLORIDE 0.9% 1,000 ML IV ONE (00:01)
[2024-11-07] MEDS ORDERED: DOCUSATE 100 MG CAP PO PRN (00:24)
[2024-11-07] MEDS ORDERED: MAG HYDROX/AL HYDROX/SIMETH 30 ML CUP PO PRN (00:24)
[2024-11-07] MEDS ORDERED: ALPRAZolam 0.25 MG TAB PO PRN (00:24)
[2024-11-07] MEDS ORDERED: HYDROmorphone 1 MG/ML 1 ML SYRINGE IVP PRN (00:24)
[2024-11-07] MEDS ORDERED: NALOXONE 0.4 MG/ML 1 ML VIAL IV PRN (00:24)
--- NOTE | 2024-11-07 00:42 | CT ---
EXAM: CT Angiography Chest With Intravenous Contrast CLINICAL HISTORY: ITS.REASON CT Reason: Shortness of breath TECHNIQUE: Axial computed tomographic angiography images of the chest with intravenous contrast. CTDI is 6.7 mGy and DLP is 201.9 mGy-cm. This CT exam was performed using one or more of the following dose reduction techniques: automated exposure control, adjustment of the mA and/or kV according to patient size, and/or use of iterative reconstruction technique. MIP reconstructed images were created and reviewed. COMPARISON: No relevant prior studies available. FINDINGS: Pulmonary arteries: Unremarkable. No pulmonary embolism. Aorta: Atherosclerotic changes of the aorta. No thoracic aortic aneurysm. Lungs: Airspace consolidation at the RIGHT lung base measures approximately 5.4 x 5.8 cm, concerning for lung cancer. Surrounding airspace consolidation, concerning for pneumonia. Large RIGHT pleural effusion. Severe centrilobular emphysema. Pleural space: See above. Heart: Unremarkable. No cardiomegaly. No significant pericardial effusion. No evidence of RV dysfunction. Bones/joints: Degenerative changes of the spine. No acute fracture. No dislocation. Soft tissues: Unremarkable. Lymph nodes: Unremarkable. No enlarged lymph nodes. IMPRESSION: 1. No pulmonary embolism. 2. Airspace consolidation at the RIGHT lung base measures approximately 5.4 x 5.8 cm, concerning for lung cancer. Surrounding airspace consolidation, concerning for pneumonia. Large RIGHT pleural effusion.
[2024-11-07] MEDS: SODIUM CHLORIDE 0.9% 1,000 ML IV SCH (01:22)
[2024-11-07] MEDS ORDERED: VANCOMYCIN IV PER PHARMACY 1 EACH MISC MISCELLANE PRN (01:34)
[2024-11-07] MEDS: AZITHROMYCIN 500 MG in SODIUM CHLORIDE 0.9% 250 ML IVPB ONE (02:17)
[2024-11-07] MEDS: metroNIDAZOLE-NS PMX 500 MG in SALINE 1 100ML.BAG IVPB SCH (04:16)
[2024-11-07] MEDS: VANCOMYCIN 1,000 MG in SODIUM CHLORIDE 0.9% 250 ML IVPB ONE (05:32)
--- NOTE | 2024-11-07 05:50 | P.CNPUL ---
History of Present Illness Consult date: 11/07/24 Requesting physician: Mable Ray Reason for consult: pleural effusion, lung mass Chief complaint: Right upper quadrant/back pain History of present illness: 69-year-old female presenting the emergency department last night with a chief complaint of right upper quadrant abdominal pain with radiation to the right back. Ongoing for the last 2 days. Workup in the emergency department including abdominal/pelvis CT which does not show any acute intra-abdominal process. Remarkable for right middle lobe cystic lesion and moderate to large right-sided pleural effusion. Follow-up chest CTA did not show any evidence of pulmonary embolism. Right basilar masslike consolidation measuring 5.4 x 5.8 cm, concerning for possible malignancy. Additional surrounding airspace consolidation, possibly superimposed pneumonia. Large right-sided pleural effusion noted. Severe centrilobular emphysematous changes. Labs remarkable for a CBC with a WBC count of 62.7, hemoglobin 13.4, platelets 801. CMP with a sodium 130, potassium 5, chloride 95, serum bicarb 24, BUN 28, creatinine 0.88, glucose 105. Lactate 2.7 down to 1.1. AST 57, ALT 26, ALP 268. Troponins less than 0.012. NT proBNP 467. Lipase 26. Patient currently being evaluated in emergency department. She is resting comfortably on 2 L/min nasal cannula. SpO2 reading 98%. Again endorses above-mentioned right upper quadrant pain with radiation to the right thoracic level back. Previously, rated 9 out of 10 on a 10 point numerical scale. Started approximately 2 days ago. Denies any nausea, vomiting, change in bowel movements, diarrhea. Does endorse previous congested cough without much sputum production. Denies any significant purulent sputum or hemoptysis. Denies any fevers, chills. No previously diagnosed COPD. She is a former tobacco smoker, quit approximately 9 years ago. Prior to this, she smo ked 1 pack, which lasted for almost a month. No family or personal history of lung cancer. No significant unintentional weight loss. No recent outpatient treatments for pneumonias. Her primary care provider is Dr. Muñoz. Given empiric doses of azithromycin, Rocephin, Flagyl, and vancomycin in the ED. Afebrile. Normal saline infusing at 130 mL/h. Nontoxic appearance. Hemodynamic stable. Review of Systems Constitutional: Reports fatigue, Reports poor appetite, Denies chills, Denies fever, Denies weakness, Denies weight gain, Denies weight loss Ears, nose, mouth and throat: Denies dysphagia, Denies headache, Denies nasal congestion, Denies nasal discharge, Denies neck lump, Denies sinus pain, Denies sinus pressure, Denies sore throat, Denies voice changes Cardiovascular: Denies chest pain, Denies leg edema, Denies lightheadedness, Denies orthopnea, Denies palpitations, Denies paroxysmal nocturnal dyspnea, Denies syncope Respiratory: Reports as per HPI Gastrointestinal: Reports as per HPI Genitourinary: Denies dysuria, Denies hematuria Musculoskeletal: Denies limitation of motion Integumentary: Denies rash Neurological: Denies head injury, Denies headaches, Denies numbness, Denies paralysis, Denies paresthesias, Denies seizures, Denies weakness, Denies visual changes Psychiatric: Denies anxiety, Denies depression Past Medical History Additional Past Medical History / Comment(s): hx ulcer, Raynauds, osteoporosis History of Any Multi-Drug Resistant Organisms: None Reported Past Surgical History: Orthopedic Surgery Additional Past Surgical History / Comment(s): cataract surgery, surgery for ulcer, left hip sx Past Anesthesia/Blood Transfusion Reactions: No Reported Reaction Past Psychological History: No Psychological Hx Reported Smoking Status: Former smoker Past Alcohol Use History: None Reported Past Drug Use History: None Reported - Past Family History Mother Family Medical History: No Reported History Medications and Allergies Home Medications Medication Instructions Recorded Confirmed Type Multivitamins, Thera [Multivitamin 1 tab PO DAILY 05/06/18 04/17/23 History (formulary)] Vit C/E/Zn/Coppr/Lutein/Zeaxan 1 cap PO DAILY 05/06/18 04/17/23 History [Preservision Areds 2 Softgel] Calcium Carbonate/Vitamin D3 1 cap PO DAILY 04/12/23 04/17/23 History [Calcium 600 mg-D3 10 Mcg (400 Iu)] Folic Acid 1 mg PO DAILY 04/12/23 04/17/23 History NIFEdipine XL [Procardia XL] 60 mg PO DAILY 04/12/23 04/17/23 History Romosozumab-Aqqg [Evenity] 210 mg SQ Q30D 04/12/23 04/17/23 History metHOTREXate sodium 25 mg PO WE 04/12/23 04/17/23 History Aspirin 325 mg PO DAILY #28 tab 04/16/23 04/17/23 Rx Ferrous Sulfate [Iron (65 MG 325 mg PO BID #60 tab 04/16/23 04/17/23 Rx Elemental)] HYDROcodone/APAP 5-325MG [Coldiron 1 tab PO Q6HR PRN #28 tab 04/16/23 04/17/23 Rx 5-325] Sennosides/Docusate Sodium [Senna 1 cap PO DAILY 04/17/23 04/17/23 History Plus 8.6-50 mg Softgel] Nystatin 100,000 Unit/ml Susp 500,000 unit PO QID 10 Days #40 ml 04/21/23 Rx [Mycostatin Oral Susp] Allergies Allergy/AdvReac Type Severity Reaction Status Date / Time No Known Allergies Allergy Verified 11/06/24 20:14 Physical Exam Vitals: Vital Signs Temp Pulse Resp BP Pulse Ox 11/07/24 00:00 91 25 H 93/56 98 11/06/24 23:19 107 H 25 H 112/53 95 11/06/24 20:03 98.1 F 57 L 28 H 88/64 88 L Intake and Output 11/06/24 11/06/24 11/07/24 14:59 22:59 06:59 Other: Weight 50.802 kg GENERAL EXAM: Alert, 69-year-old white female, comfortable in no apparent distr ess. HEAD: Normocephalic and atraumatic EYES: Normal reaction of pupils, equal size. NOSE: Clear with pink turbinates. THROAT: No erythema or exudates. NECK: No masses, no JVD. CHEST: No chest wall deformity. LUNGS: Equal air entry with diminished right lower lobe lung sounds. No conversational dyspnea or accessory muscle use. CVS: S1 and S2 normal with no audible murmur, regular rhythm. No extra heart sounds ABDOMEN: No hepatosplenomegaly, active bowel sounds, no guarding or rigidity. SPINE: No scoliosis or deformity SKIN: No rashes CENTRAL NERVOUS SYSTEM: No focal deficits, tone is normal in all 4 extremities. EXTREMITIES: There is no peripheral edema, clubbing, or cyanosis. Peripheral pulses are intact. Results - Laboratory Findings CBC and BMP: 11/06/24 20:53 11/06/24 20:53 Abnormal lab findings: Abnormal Labs 11/06/24 11/06/24 11/06/24 20:53 20:53 20:53 WBC 62.66 H* Hct 36.9 L Plt Count 801 H MPV 9.2 L Immature Gran # 2.15 H Neutrophils # 56.32 H Monocytes # 2.14 H Sodium 130 L Chloride 95 L BUN 28 H Glucose 105 H Plasma Lactic Acid Todd 2.7 H* Calcium 8.3 L AST 57 H Alkaline Phosphatase 268 H Total Protein 6.1 L Albumin 2.6 L - Diagnostic Findings Chest x-ray: image reviewed CT scan - chest: image reviewed Assessment and Plan Assessment: Right basilar masslike consolidation measuring 5.4 x 5.8 cm, consider malignancy; superimposed bacterial pneumonia is not excluded Large right-sided pleural effusion Acute hypoxemic respiratory failure, currently on 2 L/min nasal cannula, secondary to above Acute leukocytosis, WBC count 62.7 Hyponatremia, appears euvolemic Former tobacco smoker, quit approximately 9 years ago Plan: Patient's medications, labs, imaging reviewed Continue supplemental oxygen, currently at 2 L/min nasal cannula Obtain ultrasound of the chest with markings for possible right-sided thoracentesis Continue empiric antibiotics Check procalcitonin level Medical oncology also consulted Case to be reviewed with Dr. Mai, additional recommendations forthcoming I have personally seen and examined the patient, performed the documentation and the assessment and plan as written. Number of minutes spent on the visit:20 Time with Patient: Greater than 30
--- NOTE | 2024-11-07 07:21 | US ---
EXAMINATION TYPE: US chest DATE OF EXAM: 11/07/2024 COMPARISON: CT 11/05/2024 CLINICAL INDICATION: Female, 69 years old with history of right pleural effusion; SOB, Abnormal CT TECHNIQUE: Grayscale imaging of the chest. Targeted ultrasound of the posterior lower right hemithor ax FINDINGS: EXAM MEASUREMENTS: Right Pleural Effusion pocket size: 12.4 cm Right skin surface to fluid distance: 2.4 cm Audiovisual Production Specialist notes: Right side marked for possible thoracentesis outside the dept. Fluid complex "ho neycomb" in appearance Pulmonologists are able to review the images in the patient?s EMR. IMPRESSIONS: Moderate right pleural effusion with marking performed. Very complex appearance noted by the sonograp her. [facility], , 11/07/2024 7:19 AM
[2024-11-07] MEDS: FAMOTIDINE 20 MG TAB PO SCH (07:43)
[2024-11-07] MEDS: IBUPROFEN 400 MG TAB PO PRN (07:43)
--- NOTE | 2024-11-07 09:18 | XR ---
EXAMINATION TYPE: XR chest 1V portable DATE OF EXAM: 11/07/2024 9:13 AM COMPARISON: CT chest from same date 11/06/2024 CLINICAL INDICATION: Female, 69 years old with history of Post right thoracentesis, , FINDINGS: Residual moderate to large right pleural effusion. Background interstitial density and hyperinflation . Right heart margin obscured by adjacent pleural parenchymal opacity. No appreciable pneumothorax. IMPRESSION: Residual moderate to large right pleural effusion with underlying atelectasis and/or consolidation fo llowing thoracentesis. No appreciable pneumothorax. [facility], Workstation: [email or web address], 11/07/2024 9:16 AM
[2024-11-07 10:45] LABS: INR 1.1 (<1.2); Prothrombin Time 11.7 sec (10.0-12.5)
--- NOTE | 2024-11-07 11:37 | US ---
EXAMINATION TYPE: US chest DATE OF EXAM: 11/07/2024 COMPARISON: 11/07/2024 CLINICAL INDICATION: Female, 69 years old with history of pleural effusion; Scanned after thoracentes is access fluid pocket. TECHNIQUE: Grayscale imaging of the chest. Targeted ultrasound of the posterior lower right hemithor ax FINDINGS: EXAM MEASUREMENTS: Right Pleural Effusion pocket size: 12.6 cm loculated pocket. Right skin surface to fluid distance: 1.5 cm Pulmonologists are able to review the images in the patient?s EMR. IMPRESSIONS: Residual moderate very complex, loculated pleural effusion. There is underlying 10 cm area that could represent clumped up, abnormal and consolidated lung versus an underlying mass. [facility], , 11/07/2024 11:35 AM
[2024-11-07] MEDS: MULTIVITAMINS, THERA 1 EACH TAB PO SCH (11:38)
--- NOTE | 2024-11-07 12:34 | US ---
EXAMINATION TYPE: US guided chest tube insertion DATE OF EXAM: 11/07/2024 12:23 PM CLINICAL INDICATION:Female, 69 years old with history of right pleural effusion COMPARISON: CT TECHNIQUE: Ultrasound-guided chest tube insertion. PROCEDURE: Informed consent was obtained. Safe access in the right pleural effusion was identified via ultrasoun d. The safest allowable access to the right pleural space. The patient was then prepped and draped in the usual sterile fashion. Local anesthesia was provided. Trocar technique was used with a 8-[place]mani pigtail catheter placed into a. Placement was confirmed with ultrasound guidance. Approximately mL was drained . A water sealed container was then hooked up. The tubing was affixed t o the skin. There was no blood loss and post-procedure hemostasis was achieved. The patient tolerat ed the procedure well without complication. Patient was transferred to the general medical floor in stable condition. IMPRESSION: Successful 8 [place]i tube placement within the right pleural space which was left in place. [facility], , 11/07/2024 12:32 PM
[2024-11-07] MEDS: ONDANSETRON ODT 4 MG TAB PO PRN (14:29)
[2024-11-07] MEDS: AMPICILLIN-SULBACTAM 3 GM in SODIUM CHLORIDE 0.9% 100 ML IVPB SCH (16:49)
[2024-11-07 17:11] LABS: Appearance,BF Cloudy (Clear)
[2024-11-07 20:21] LABS: Amylase, Fluid Source Pleural Fluid; Amylase,Body Fluid 13 U/L; T. Protein, Body Fluid Source Pleural Fluid; Total Protein, Body Fluid >3600 mg/dL
--- NOTE | 2024-11-07 20:30 | OP ---
OPERATIVE REPORT DATE OF SERVICE : OPERATION: Right-sided thoracentesis. PREOPERATIVE DIAGNOSIS: Large right pleural effusion with possible loculation. POSTOPERATIVE DIAGNOSIS: Large right pleural effusion with possible loculation. ANESTHESIA USED: 2 mL of 1% lidocaine. PROCEDURE IN DETAIL: The right pleural effusion was localized with ultrasound, and marking was placed at the level of the 8th intercostal space and tip of the scapula. Then, the area was locally anesthetized after it was prepared in a sterile fashion. A small tiny 26-gauge needle was inserted into the pleural space pleural effusion. The fluid was localized with the needle, then a small tiny incision was made and a standard thoracentesis catheter and needle were used, advanced into the pleural space. Fluid was obtained. It looked quite turbid fluid, thick. Fluid seems to be complicated pleural effusion, we drained a total of 500 mL of thick turbid fluid, this was sent for different diagnostic studies, in the meantime, considering the patient seems to have a complicated pleural effusion, I recommended a pigtail catheter insertion for . Procedure was well tolerated, no complications, chest x-ray showed no evidence of pneumothorax after the procedure. MMODL / IJN: [id number] /
--- NOTE | 2024-11-07 20:51 | P.CONS ---
History of Present Illness - Reason for Consult Consult date: 11/07/24 malignancy Requesting physician: Mable Ray - Chief Complaint right sided pain - History of Present Illness Patient is a 69-year-old female who presented emergency room for right sided pain over the last 3 days. Patient states prior to that she was experiencing cough. Denies fever and chills and shortness of breath. She does have a previous history of rheumatoid arthritis and was previously on methotrexate but due to leukopenia methotrexate was stopped. Upon admit CTA chest was negative for PE. Airspace consolidation at the right lung base measuring 5.4 x 5.8 cm. Surrounding airspace consolidation concerning for pneumonia. Procalcitonin elevated at 2.74. Patient subsequently been started on IV antibiotics. CT abdomen pelvis showing no evidence of right lower quadrant acute process to correlate for patient's pain. Right middle lobe cystic lesion possibly a mass in the right middle lobe with moderate to large pleural effusion. Circumferential wall thickening of the distal esophagus. Hepatic steatosis and colonic diverticulosis. Scattered calcifications throughout the pancreas parenchyma. Labs reviewed, WBC elevated at 62.6, hemoglobin 13.4, platelets 801,000. Creatinine 0.88, GFR 67. Lactic acid elevated at 2.7. Bilirubin 0.7, AST 57, ALT 26, ALP 268, lipase 2 6. Patient does report history of smoking in the past but quit many years ago and smoked minimally approximately 1 pack a month. She endorses approx 8lb weight loss over the last 6 weeks, denies night sweats. Denies headache and visual changes. Review of Systems 10 point ROS is negative except as stated in the HPI Past Medical History Additional Past Medical History / Comment(s): hx ulcer, Raynauds, osteoporosis History of Any Multi-Drug Resistant Organisms: None Reported Past Surgical History: Orthopedic Surgery Additional Past Surgical History / Comment(s): cataract surgery, surgery for ulcer, left hip sx Past Anesthesia/Blood Transfusion Reactions: No Reported Reaction Smoking Status: Former smoker - Past Family History Mother Family Medical History: No Reported History Medications and Allergies Home Medications Medication Instructions Recorded Confirmed Type Multivitamins, Thera [Multivitamin 1 tab PO DAILY 05/06/18 11/07/24 History (formulary)] HYDROcodone/APAP 5-325MG [[place] 0.5 - 1 tab PO DAILY PRN 11/07/24 11/07/24 History 5-325] Ondansetron [Zofran] 4 mg PO BID PRN 11/07/24 11/07/24 History Allergies Allergy/AdvReac Type Severity Reaction Status Date / Time No Known Allergies Allergy Verified 11/07/24 07:59 Physical Exam Vitals: Vital Signs Temp Pulse Pulse Resp BP BP Pulse Ox 11/07/24 12:00 80 18 85/51 95 11/07/24 07:51 98.2 F 86 18 103/50 95 11/07/24 06:48 82 19 96/53 99 11/07/24 04:00 84 17 98/65 98 11/07/24 00:00 91 25 H 93/56 98 11/06/24 23:19 107 H 25 H 112/53 95 11/06/24 20:03 98.1 F 57 L 28 H 88/64 88 L Intake and Output 11/06/24 11/07/24 11/07/24 22:59 06:59 14:59 Other: Weight 50.802 kg 50.802 kg - Constitutional General appearance: average body habitus, no acute distress - EENT Eyes: anicteric sclerae, EOMI ENT: hearing grossly normal - Respiratory Respiratory: right: diminished - Cardiovascular Rhythm: regular - Gastrointestinal General gastrointestinal: soft, no tenderness - Integumentary Integumentary: no cyanotic - Neurologic Neurologic: CNII-XII intact - Musculoskeletal Musculoskeletal: strength equal bilaterally - Psychiatric Psychiatric: A&O x's 3 Results CBC & Chem 7: 11/06/24 20:53 11/06/24 20:53 Labs: Abnormal Lab Results - Last 24 Hours (Table) 11/06/24 11/06/24 11/06/24 Range/Units 20:53 20:53 20:53 WBC 62.66 H* (4.50-10.00) 10*3/uL Hct 36.9 L (37.2-46.3) % Plt Count 801 H (140-440) 10*3/uL MPV 9.2 L (9.5-12.2) fL Immature Gran # 2.15 H (0.00-0.04) 10*3/uL Neutrophils # 56.32 H (1.80-7.70) 10*3/uL Monocytes # 2.14 H (0.20-1.00) 10*3/uL Sodium 130 L (137-145) mmol/L Chloride 95 L (98-107) mmol/L BUN 28 H (7-17) mg/dL Glucose 105 H (74-99) mg/dL Plasma Lactic Acid Todd 2.7 H* (0.7-2.0) mmol/L Calcium 8.3 L (8.4-10.2) mg/dL AST 57 H (14-36) U/L Alkaline Phosphatase 268 H (38-126) U/L Total Protein 6.1 L (6.3-8.2) g/dL Albumin 2.6 L (3.5-5.0) g/dL Procalcitonin (0.02-0.50) ng/mL 11/07/24 Range/Units 01:13 WBC (4.50-10.00) 10*3/uL Hct (37.2-46.3) % Plt Count (140-440) 10*3/uL MPV (9.5-12.2) fL Immature Gran # (0.00-0.04) 10*3/uL Neutrophils # (1.80-7.70) 10*3/uL Monocytes # (0.20-1.00) 10*3/uL Sodium (137-145) mmol/L Chloride (98-107) mmol/L BUN (7-17) mg/dL Glucose (74-99) mg/dL Plasma Lactic Acid Todd (0.7-2.0) mmol/L Calcium (8.4-10.2) mg/dL AST (14-36) U/L Alkaline Phosphatase (38-126) U/L Total Protein (6.3-8.2) g/dL Albumin (3.5-5.0) g/dL Procalcitonin 2.74 H (0.02-0.50) ng/mL CT scan - abdomen: report reviewed CT scan - chest: report reviewed CT scan - pelvis: report reviewed Assessment and Plan (1) Acute hypoxic respiratory failure Current Visit: Yes Status: Acute Code(s): J96.01 - ACUTE RESPIRATORY FAILURE WITH HYPOXIA SNOMED Code(s): 94448672 (2) Lung mass Current Visit: Yes Status: Acute Code(s): R91.8 - OTHER NONSPECIFIC ABNORMAL FINDING OF LUNG FIELD SNOMED Code(s): 339931564 (3) Pneumonia Current Visit: Yes Status: Acute Code(s): J18.9 - PNEUMONIA, UNSPECIFIED ORGANISM SNOMED Code(s): 433954153 Plan: Pneumonia, lung mass vs consolidation: Presented for right sided pain over the last 3 days and cough. Denies fever and chills and shortness of breath. She does have a previous history of rheumatoid arthritis and was previously on methotrexate but due to leukopenia methotrexate was stopped. Patient reports history of smoking in the past but quit many years ago and smoked minimally, approximately 1 pack a month. She endorses approx 8lb weight loss over the last 6 weeks, denies night sweats. Denies headache and visual changes. -Upon admit CTA chest was negative for PE. Airspace consolidation at the right lung base measuring 5.4 x 5.8 cm. Surrounding airspace consolidation concerning for pneumonia. -Procalcitonin elevated at 2.74. Patient subsequently been started on IV antibiotics. -CT abdomen pelvis showing no evidence of right lower quadrant acute process to correlate for patient's pain. Right middle lobe cystic lesion possibly a mass in the right middle lobe with moderate to large pleural effusion. Circumferential wall thickening of the distal esophagus. Hepatic steatosis and colonic diverticulosis. Scattered calcifications throughout the pancreas parenchyma. -S/p thoracentesis, cytology pending -Clinic f/u will be scheduled to f/u on cytology and further management/monitoring Discussed with pt concerns for possible malignancy vs infectious process. All questions and concerns were addressed Leukocytosis: -WBC elevated at 62.6. Likely leukomoid reaction -Would expect WBC to improve as pt recovers -Continue to monitor CBC Doctor attests: I performed a history and physical examination of this patient, developed impression and plan of care. Discussed with dictator. I agree with dictators note, documented as a scribe.
[2024-11-07] MEDS ORDERED: cefTRIAXone 2 GM in DEXTROSE 5% IN WATER 50 ML IVPB SCH (21:00)
[2024-11-07 21:02] LABS: Glucose, BF Source Pleural Fluid; Glucose, Body Fluid <2 mg/dL; LDH, Body Fluid Source Pleural Fluid
[2024-11-07 23:40] LABS: Influenza A Not Detected (Not Detectd); Influenza B Not Detected (Not Detectd); RSV Not Detected (Not Detectd)
[2024-11-08] MEDS: ACETAMINOPHEN TAB 325 MG TAB PO PRN (05:32)
[2024-11-08] MEDS ORDERED: VANCOMYCIN 1,000 MG in SODIUM CHLORIDE 0.9% 250 ML IVPB SCH (06:00)
--- NOTE | 2024-11-08 07:28 | XR ---
EXAMINATION TYPE: XR chest 1V portable DATE OF EXAM: 11/08/2024 6:25 AM COMPARISON: 11/07/2024 CLINICAL INDICATION: Female, 69 years old with history of follow right pleural effusion with pigtail, , FINDINGS: Pleural parenchymal opacity extending up to the right midlung obscures the right heart margin. The de nsity of the medial opacity has slightly diminished. Right sided pigtail pleural catheter in place. B ackground hyperinflation and mild interstitial density is unchanged. IMPRESSION: Ongoing moderate to large right pleural effusion with underlying atelectasis and/or consolidation, mi nimally decreased in the interval. A pleural catheter is present now. [facility], Workstation: [id number], 11/08/2024 7:26 AM
[2024-11-08] MEDS: FAMOTIDINE 20 MG TAB PO SCH (08:36)
[2024-11-08] MEDS ORDERED: cefTRIAXone 2 GM in DEXTROSE 5% IN WATER 50 ML IVPB SCH (09:00)
--- NOTE | 2024-11-08 09:36 | P.GSCN ---
History of Present Illness Consult date: 11/08/24 Reason for Consult: Lytic installation Requesting physician: Marisol Soler History of present illness: This is a 69-year-old female who follows outpatient with Dr. Muñoz for internal medicine. She has a previous medical history of gastric ulcer, Raynaud's, distant remote history of smoking. She reported to [facility] emergency room with complaints of right-sided chest pain and productive cough for several days. She denied any fever, shortness of breath. She did endorse 8 pound weight loss over the last 6 weeks. In the emergency room chest CTA revealed no pulmonary embolism. There was airspace consolidation at the right lung base measuring 5.4 x 5.8 cm concerning for lung cancer versus pneumonia, and large right effusion. Lab work revealed WBC 62.7, hemoglobin 13.4, INR 1.1, creatinine 0.88, sodium 130, lactic acid 2.7 with procalcitonin 2.74, negative troponin, BNP 467, viral screen was negative. She was admitted and placed on antibiotics with consultation placed to pulmonology. Her right chest was ultrasounded yesterday morning and right sided thoracentesis was performed by Dr. Gilliam with removal of 500 mL of thick turbid fluid which was sent for diagnostic studies. Following that she was recommended to have a pigtail catheter placed by interventional radiology and subsequently cardiothoracic surgery was consulted for lytic installation. Review of Systems Review of systems was completed and was negative except as noted - Constitutional Reports weight loss - Cardiovascular Reports chest pain - Respiratory Reports cough with sputum Past Medical History Additional Past Medical History / Comment(s): hx ulcer, Raynauds, osteoporosis History of Any Multi-Drug Resistant Organisms: None Reported Past Surgical History: Orthopedic Surgery Additional Past Surgical History / Comment(s): cataract surgery, surgery for ulcer, left hip sx Past Anesthesia/Blood Transfusion Reactions: No Reported Reaction Past Psychological History: No Psychological Hx Reported Smoking Status: Former smoker Past Alcohol Use History: None Reported Past Drug Use History: None Reported - Past Family History Mother Family Medical History: Myocardial Infarction ([place]) Additional Family Medical History / Comment(s): from myocardial infarction Father Additional Family Medical History / Comment(s): Unsure what father from, thinks he had something to do with his throat Medications and Allergies Home Medications Medication Instructions Recorded Confirmed Type Multivitamins, Thera [Multivitamin 1 tab PO DAILY 05/06/18 11/07/24 History (formulary)] HYDROcodone/APAP 5-325MG [[place] 0.5 - 1 tab PO DAILY PRN 11/07/24 11/07/24 History 5-325] Ondansetron [Zofran] 4 mg PO BID PRN 11/07/24 11/07/24 History Allergies Allergy/AdvReac Type Severity Reaction Status Date / Time No Known Allergies Allergy Verified 11/07/24 07:59 Surgical - Exam Vital Signs Temp Pulse Resp BP Pulse Ox 98.1 F 57 L 28 H 88/64 88 L 11/06/24 20:03 11/06/24 20:03 11/06/24 20:03 11/06/24 20:03 11/06/24 20:03 CONSTITUTIONAL: Awake and alert, appears comfortable, cooperative, well- developed, well-nourished, no pain, no acute distress EYES: Pupils equal, round, reactive to light, normal ocular movement ENT: Moist mucous membranes without oral lesions present NECK: No masses, no bruits, trachea midline RESPIRATORY: Lungs sounds diminished in the right base. Respirations even, nonlabored. Currently on 2 L nasal cannula with oxygen saturation 97%. Strong cough. Right sided pigtail catheter present to continuous wall suction CARDIOVASCULAR: S1, S2 present. Regular rate and rhythm. Palpable peripheral pulses bilaterally. No edema present. No calf pain or tenderness noted GASTROINTESTINAL: Abdomen soft, nontender, nondistended without masses or organomegaly noted. There is no rebound or guarding present. Active bowel sounds present 4 quadrants. GENITOURINARY: Deferred INTEGUMENTARY: Skin is warm and dry NEUROLOGIC: Cranial nerves II through XII intact, normal coordination, no obvious motor or sensory deficits, speech is normal MUSKULOSKELETAL: Able to move all extremities, strength equal bilaterally, normal posture PSYCHIATRIC: Alert and oriented to person place and time, appropriate affect, intact judgment and insight Results - Labs 11/06/24 20:53 11/06/24 20:53 Abnormal Lab Results - Last 24 Hours (Table) 11/07/24 11/07/24 Range/Units 01:13 09:02 Procalcitonin 2.74 H (0.02-0.50) ng/mL Fluid Appearance Cloudy A (Clear) Microbiology - Last 24 Hours (Table) 11/07/24 09:02 Acid Fast Bacilli Smear - Preliminary Pleural Fluid 11/06/24 21:56 Blood Culture - Preliminary Blood 11/07/24 09:02 Gram Stain - Preliminary Pleural Fluid - Imaging Chest x-ray: report reviewed, image reviewed CT scan - chest: report reviewed, image reviewed Assessment and Plan Assessment: Right basilar masslike consolidation, malignancy versus infection Right loculated effusion, complicated, related to infection versus cancer Leukocytosis Hyponatremia Chest pain, cough with sputum secondary to above Recent 8 pound weight loss over 6 weeks History of gastric ulcer Raynaud's Distant remote history of smoking Plan: The patient was seen and examined laying in bed in medical oncology unit in no acute distress. Chart/diagnostics reviewed. Discussed lytic installation through her pigtail catheter to allow better drainage of effusion. Will continue for a few days as long as patient continues to drain. No surgical plans at this time. All of patient's questions were answered. Will instill first dose of lytics today, allow to dwell for 1 to 2 hours. Continue chest tube to continuous wall suction, may take off suction for patient to ambulate in the hallway. Antibiotics per infectious disease. Wean oxygen as tolerated. Incentive spirometry ordered and should be encouraged. Increase activity as tolerated. Medical management of other comorbidities per internal medicine, pulmonology, infectious disease. More recommendations to follow. Thank you Dr. Soler for this consult, we will continue to follow along with you and make further recommendations as appropriate. I have personally seen and examined the patient, performed the documentation and the assessment and plan as written. Number of minutes spent on the visit: 30. CANDACE Chisholm
[2024-11-08 09:41] LABS: HCT 32.4 % (37.2-46.3); HGB 11.2 g/dL (12.0-15.0); MCH 30.5 pg (27.0-32.0); MCHC 34.6 g/dL (32.0-37.0); MCV 88.3 fL (80.0-97.0); Mean Platelet Volume 9.2 fL (9.5-12.2); Platelet Count 544 10*3/uL (140-440); RBC 3.67 10*6/uL (4.10-5.20); RDW 14.5 % (11.5-14.5); WBC 26.25 10*3/uL (4.50-10.00)
[2024-11-08 09:57] LABS: ALT 22 U/L (4-34); AST 36 U/L (14-36); African American GFR (CKD) >90 (>60 ml/min/1.73 sqM); Albumin 1.8 g/dL (3.5-5.0); Albumin/Globulin Ratio 0.6; Alkaline Phosphatase 181 U/L (38-126); Anion Gap 6 mmol/L; Blood Urea Nitrogen 14 mg/dL (7-17); Calcium 7.1 mg/dL (8.4-10.2); Carbon Dioxide 23 mmol/L (22-30); Chloride 105 mmol/L (98-107); Globulin 2.9 g/dL; Glucose 78 mg/dL (74-99); Non-African American GFR(CKD) >90 (>60 ml/min/1.73 sqM); Potassium 3.7 mmol/L (3.5-5.1); Sodium 134 mmol/L (137-145); Total Bilirubin 0.5 mg/dL (0.2-1.3); Total Protein 4.7 g/dL (6.3-8.2)
[2024-11-08] MEDS: ALTEPLASE 10 MG in SODIUM CHLORIDE 0.9% 50 ML IRRIGATION ONE (10:16)
[2024-11-08] MEDS: DORNASE ALFA 5 MG in SODIUM CHLORIDE 0.9% 50 ML IRRIGATION ONE (10:18)
[2024-11-08 10:39] LABS: Lymphocytes # (M) 3.68 k/uL (1.0-4.8); Monocytes # (M) 1.05 k/uL (0-1.0); Neutrophils # (M) 21.53 k/uL (1.3-7.7); Neutrophils % (M) 82 %; Nucleated Red Blood Cells 0 /100 WBC (0-0); Total Cells Counted 100
[2024-11-08] MEDS: HYDROcodone/APAP 5-325MG 1 EACH TAB PO PRN ×2 (12:54→18:34)
--- NOTE | 2024-11-08 13:47 | P.PN ---
Subjective Progress Note Date: 11/08/24 69-year-old female presenting the emergency department last night with a chief complaint of right upper quadrant abdominal pain with radiation to the right back. Ongoing for the last 2 days. Workup in the emergency department including abdominal/pelvis CT which does not show any acute intra-abdominal process. Remarkable for right middle lobe cystic lesion and moderate to large right-sided pleural effusion. Follow-up chest CTA did not show any evidence of pulmonary embolism. Right basilar masslike consolidation measuring 5.4 x 5.8 cm, concerning for possible malignancy. Additional surrounding airspace consolidation, possibly superimposed pneumonia. Large right-sided pleural effusion noted. Severe centrilobular emphysematous changes. Labs remarkable for a CBC with a WBC count of 62.7, hemoglobin 13.4, platelets 801. CMP with a sodium 130, potassium 5, chloride 95, serum bicarb 24, BUN 28, creatinine 0.88, glucose 105. Lactate 2.7 down to 1.1. AST 57, ALT 26, ALP 268. Troponins less than 0.012. NT proBNP 467. Lipase 26. Patient currently being evaluated in emergency department. She is resting comfortably on 2 L/min nasal cannula. SpO2 reading 98%. Again endorses above-mentioned right upper quadrant pain with radiation to the right thoracic level back. Previously, rated 9 out of 10 on a 10 point numerical scale. Started approximately 2 days ago. Denies any nausea, vomiting, change in bowel movements, diarrhea. Does endorse previous congested cough without much sputum production. Denies any significant purulent sputum or hemoptysis. Denies any fevers, chills. No previously diagnosed COPD. She is a former tobacco smoker, quit approximately 9 years ago. Prior to this, she smoked 1 pack, which lasted for almost a month. No family or personal history of lung cancer. No significant unintentional weight loss. No recent outpatient treatments for pneumonias. Her primary care provider is Dr. Muñoz. Given empiric doses of azithromycin, Rocephin, Flagyl, and vancomycin in the ED. Afebrile. Normal saline infusing at 130 mL/h. Nontoxic appearance. Hemodynamic stable. The patient is seen today November 08, 2024 in follow-up on the regular medical floor. She is currently sitting up in bed. Awake and alert in no acute distress. Maintaining good O2 saturations in the 90s on 2 L/min per nasal cannula. She did have a right sided pigtail catheter placed yesterday. She also had a thoracentesis performed yesterday. She continues with hazy yellow output. Her pleural fluid was exudate with a protein of 3.6 and an LDH greater than 2500. Procalcitonin was 2.74. She is currently on Unasyn. Chest x-ray continues to show ongoing moderate to large right pleural effusion with underlying atelectasis and/or consolidation. Minimally decreased compared to previous. Pleural fluid cultures are pending. White count 26.2. Hemoglobin 11.2. Platelets 544. Sodium 134. Potassium 3.7. Bicarb 23. BUN 14. Creatinine 0.52. Viral screen was negative for influenza A/B, RSV, COVID. Objective - Vital Signs Vital signs: Vital Signs Temp 97.4 F L 11/08/24 12:44 Pulse 76 11/08/24 12:44 Resp 17 11/08/24 12:44 BP 100/63 11/08/24 12:44 Pulse Ox 94 L 11/08/24 12:44 FiO2 Intake & Output 11/07/24 11/08/24 11/08/24 18:59 06:59 18:59 Intake Total 100 Output Total 1000 15 Balance -900 -15 Weight 50.802 kg Intake: Intake, IV Titration 100 Amount Ampicillin-Sulbactam 3 gm 100 In Sodium Chloride 0.9% 100 ml @ 200 mls/hr IVPB Q8HR [facility] Rx#:[id number] Output: Chest Tube Drainage 500 15 Chest Tube Right Upper 500 15 Posterior Chest Other 500 - Exam GENERAL EXAM: Alert, cachectic, pleasant 69-year-old white female, comfortable in no apparent distress. HEAD: Normocephalic and atraumatic EYES: Normal reaction of pupils, equal size. NOSE: Clear with pink turbinates. THROAT: No erythema or exudates. NECK: No masses, no JVD. CHEST: No chest wall deformity. Right sided pigtail catheter in place to Pleur- evac to wall suction. LUNGS: Equal air entry with diminished right lower lobe lung sounds. No conv ersational dyspnea. CVS: S1 and S2 normal with no audible murmur, regular rhythm. No extra heart piyush nds ABDOMEN: No hepatosplenomegaly, active bowel sounds, no guarding or rigidity. SPINE: No scoliosis or deformity SKIN: No rashes CENTRAL NERVOUS SYSTEM: No focal deficits, tone is normal in all 4 extremities. EXTREMITIES: There is no peripheral edema, clubbing, or cyanosis. Peripheral pulses are intact. - Labs CBC & Chem 7: 11/08/24 09:15 11/08/24 09:15 Labs: Abnormal Lab Results - Last 24 Hours (Table) 11/07/24 11/08/24 11/08/24 Range/Units 09:02 09:15 09:15 WBC 26.25 H (4.50-10.00) 10*3/uL RBC 3.67 L (4.10-5.20) 10*6/uL Hgb 11.2 L (12.0-15.0) g/dL Hct 32.4 L (37.2-46.3) % Plt Count 544 H (140-440) 10*3/uL MPV 9.2 L (9.5-12.2) fL Immature Gran # 0.84 H (0.00-0.04) 10*3/uL Neutrophils # (Manual) 21.53 H (1.3-7.7) k/uL Monocytes # (Manual) 1.05 H (0-1.0) k/uL Sodium 134 L (137-145) mmol/L Calcium 7.1 L (8.4-10.2) mg/dL Alkaline Phosphatase 181 H (38-126) U/L Total Protein 4.7 L (6.3-8.2) g/dL Albumin 1.8 L (3.5-5.0) g/dL Fluid Appearance Cloudy A (Clear) Microbiology - Last 24 Hours (Table) 11/07/24 09:02 Acid Fast Bacilli Smear - Preliminary Pleural Fluid 11/06/24 21:56 Blood Culture - Preliminary Blood 11/07/24 09:02 Gram Stain - Preliminary Pleural Fluid Assessment and Plan Assessment: Right basilar masslike consolidation measuring 5.4 x 5.8 cm, consider malignancy; superimposed bacterial pneumonia is not excluded. Procalcitonin 2.74. Initiated on Unasyn Large right-sided pleural effusion, status post thoracentesis with 500 cc of thick turbid fluid returned, status post pigtail catheter insertion to Pleur- evac Acute hypoxemic respiratory failure, currently on 2 L/min nasal cannula, seco ndary to above Acute leukocytosis, WBC count 62.7 Hyponatremia, appears euvolemic Former tobacco smoker, quit approximately 9 years ago Plan: The patient was seen and evaluated Chest x-ray, labs and medications reviewed Right sided pigtail catheter in place Still with pleural effusion/consolidation Consult to cardiothoracic surgery May require lytic infusions Consult to infectious disease Cultures and cytology of the pleural fluid pending Currently on Unasyn Procalcitonin 2.74 Titrate down the FiO2 as tolerated Increase her activity as tolerated We will continue to follow I have personally seen and examined the patient, performed the documentation and the assessment and plan as written. Number of minutes spent on the visit: 10 Dictation was produced using [employer] dictation software. Please excuse any grammatical, word or spelling errors.
[2024-11-08] MEDS: AMPICILLIN-SULBACTAM 3 GM in SODIUM CHLORIDE 0.9% 100 ML IVPB SCH (15:00)
[2024-11-08] MEDS: HYDROmorphone 0.5 MG/0.5 ML SYRINGE IVP PRN (15:24)
[2024-11-08] MEDS: ONDANSETRON 4 MG/2 ML VIAL IVP PRN (22:29)
--- NOTE | 2024-11-09 04:39 | PN ---
PROGRESS NOTE DATE OF SERVICE: 11/08/2024 CHIEF COMPLAINT: Lesion in the liver and right lower lobe of the lung. HISTORY OF PRESENT ILLNESS: This lady has undergone thoracentesis and there is a chest tube present. PHYSICAL EXAMINATION: LUNGS: Breath sounds are heard on both sides. CARDIAC: Normal. ABDOMEN: Soft, nontender, but she is pale. IMPRESSION: 1. Right pleural effusion. 2. 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 3. Possible lesion in the liver. PLAN: Continue workup with Pulmonology and Oncology. MMODL / IJN: [id number] /
--- NOTE | 2024-11-09 06:34 | XR ---
EXAM: XR Chest, 1 View CLINICAL HISTORY: Shortness of breath TECHNIQUE: Frontal view of the chest. COMPARISON: Chest radiograph 11/08/2024 FINDINGS: Lungs: Stable bibasilar airspace opacities. Emphysema. Pleural space: Worsened now moderate left pleural effusion. Stable moderate right pleural effusion. No pneumothorax. Heart: Stable cardiac silhouette. Mediastinum: Unremarkable. Normal mediastinal contour. Bones/joints: There are degenerative changes of the spine. No acute fracture. Tubes, lines and devices: The right chest tube is stable. IMPRESSION: Worsened left pleural effusion which is now moderate. The remaining findings are stable.
--- NOTE | 2024-11-09 06:51 | P.CONS ---
History of Present Illness - Reason for Consult Consult date: 11/08/24 Possible empyema Requesting physician: Patricio Gilliam - Chief Complaint Shortness of breath with right-sided chest pain x days - History of Present Illness Patient is a 69-year-old female with a past medical history significant for ulcer Raynaud's phenomena and osteoporosis presenting to the hospital for evaluation of right-sided chest pain and cough symptoms was getting worse for the last 2 days patient has been complaining of increasing shortness of breath and a cough that have been currently going on for the last few days patient cough is moderate intensity is increasing sputum production no hemoptysis patient subsequent started having pain to the right lower chest area for the last 2 days that has progressively got worse describing it to be mostly sharp moderate intensity with the symptoms the patient presented to hospital on arrival to the ER the patient was afebrile and no fever have recorded subsequently patient was tachycardic tachypneic but not hypotensive or hypoxic currently on a 2 L nasal cannula oxygen patient did have white count of 62.66 with a left shift creatinine was 0.88 lactic acid 2.7 AST 57 ALT was normal procalcitonin 2.74 patient did have a abdominal pelvis CT no evidence for the right lower quadrant acute process subcu pressure wall thickening of the distal esophagus moderate hiatal hernia she also have a CT angiogram of the chest airspace consolidation in the right lung base concerning for possible lung cancer with surrounding airspace consolidation concerning for pneumonia patient did have chest ultrasound subsequently did have a right-sided chest tube placement with the fluid did shows cloudy protein of more than 3600 white count was 2341 influenza RSV COVID testing negative pleural fluid and blood cultures c urrently pending patient was started on Unasyn infectious disease was consulted for possible empyema Review of Systems Positive point and negatives has been mentioned in the HPI, complete review of systems was performed and all other systems are negative Past Medical History Additional Past Medical History / Comment(s): hx ulcer, Raynauds, osteoporosis History of Any Multi-Drug Resistant Organisms: None Reported Past Surgical History: Orthopedic Surgery Additional Past Surgical History / Comment(s): cataract surgery, surgery for ulcer, left hip sx Past Anesthesia/Blood Transfusion Reactions: No Reported Reaction Past Psychological History: No Psychological Hx Reported Smoking Status: Former smoker Past Alcohol Use History: None Reported Past Drug Use History: None Reported - Past Family History Mother Family Medical History: Myocardial Infarction ([place]) Additional Family Medical History / Comment(s): from myocardial infarction Father Additional Family Medical History / Comment(s): Unsure what father from, thinks he had something to do with his throat Medications and Allergies Home Medications Medication Instructions Recorded Confirmed Type Multivitamins, Thera [Multivitamin 1 tab PO DAILY 05/06/18 11/07/24 History (formulary)] HYDROcodone/APAP 5-325MG [[place] 0.5 - 1 tab PO DAILY PRN 11/07/24 11/07/24 History 5-325] Ondansetron [Zofran] 4 mg PO BID PRN 11/07/24 11/07/24 History Allergies Allergy/AdvReac Type Severity Reaction Status Date / Time No Known Allergies Allergy Verified 11/07/24 07:59 Physical Exam Vitals: Vital Signs Temp Pulse Pulse Pulse Pulse Resp BP 11/08/24 08:00 97.7 F 73 16 11/08/24 01:28 97.8 F 90 16 11/07/24 23:59 98.1 F 11/07/24 22:56 77 18 100/60 11/07/24 16:00 75 16 11/07/24 12:35 86 18 11/07/24 12:20 84 18 11/07/24 12:15 88 18 11/07/24 12:00 80 18 BP Pulse Ox 11/08/24 08:00 102/67 97 11/08/24 01:28 101/68 92 L 11/07/24 23:59 11/07/24 22:56 11/07/24 16:00 99/57 95 11/07/24 12:35 87/52 95 11/07/24 12:20 88/53 95 11/07/24 12:15 87/52 96 11/07/24 12:00 85/51 95 Intake and Output 11/07/24 11/08/24 11/08/24 22:59 06:59 14:59 Intake Total 100 Output Total 100 15 Balance 0 -15 Intake: Intake, IV Titration 100 Amount Ampicillin-Sulbactam 3 gm 100 In Sodium Chloride 0.9% 100 ml @ 200 mls/hr IVPB Q8HR [facility] Rx#:[id number] Output: Chest Tube Drainage 100 15 Chest Tube Right Upper 100 15 Posterior Chest GENERAL DESCRIPTION: Elderly female lying in bed, no distress. No tachypnea or accessory muscle of respiration use. HEENT: Shows Pallor , no scleral icterus. Oral mucous membrane is dry. No thrush NECK: Trachea central, no thyromegaly. LUNGS: Unlabored breathing. Decreased breath sound at the right base HEART: S1, S2, regular rate and rhythm. No loud murmur ABDOMEN: Soft, no tenderness , guarding or rigidity, no organomegaly EXTREMITIES: No edema of feet. SKIN: No rash, no masses palpable. NEUROLOGICAL: The patient is awake, alert, oriented x3, mood and affect normal. Results CBC & Chem 7: 11/09/24 03:42 11/10/24 06:22 Labs: Abnormal Lab Results - Last 24 Hours (Table) 11/07/24 11/08/24 11/08/24 Range/Units 09:02 09:15 09:15 WBC 26.25 H (4.50-10.00) 10*3/uL RBC 3.67 L (4.10-5.20) 10*6/uL Hgb 11.2 L (12.0-15.0) g/dL Hct 32.4 L (37.2-46.3) % Plt Count 544 H (140-440) 10*3/uL MPV 9.2 L (9.5-12.2) fL Immature Gran # 0.84 H (0.00-0.04) 10*3/uL Neutrophils # (Manual) 21.53 H (1.3-7.7) k/uL Monocytes # (Manual) 1.05 H (0-1.0) k/uL Sodium 134 L (137-145) mmol/L Calcium 7.1 L (8.4-10.2) mg/dL Alkaline Phosphatase 181 H (38-126) U/L Total Protein 4.7 L (6.3-8.2) g/dL Albumin 1.8 L (3.5-5.0) g/dL Fluid Appearance Cloudy A (Clear) Microbiology - Last 24 Hours (Table) 11/07/24 09:02 Acid Fast Bacilli Smear - Preliminary Pleural Fluid 11/06/24 21:56 Blood Culture - Preliminary Blood 11/07/24 09:02 Gram Stain - Preliminary Pleural Fluid Assessment and Plan (1) Sepsis Current Visit: Yes Status: Acute Code(s): A41.9 - SEPSIS, UNSPECIFIED ORGANISM SNOMED Code(s): 56342074 (2) Empyema lung Current Visit: Yes Status: Acute Code(s): J86.9 - PYOTHORAX WITHOUT FISTULA SNOMED Code(s): 48225047 (3) Pneumonia Current Visit: Yes Status: Acute Code(s): J18.9 - PNEUMONIA, UNSPECIFIED ORGANISM SNOMED Code(s): 859653486 Plan: 1patient presented to hospital with sepsis in this patient who did have tachypnea and tachycardia elevated white count as well as elevated lactic acid meeting criteria for SIRS/sepsis source is right-sided pneumonia with a question of postobstructive and a possible component of empyema likely community- acquired pathogen in this patient with no history of recent antibiotic exposure or flulike symptoms 2-we will increase the dose of Unasyn to 3 g every 6 hours 3-will follow-up on the culture and clinical condition to further adjust antibiotic if needed. Question concern answered. We will follow on clinical condition and cultures to further adjust medication if needed Thank you for this consultation we will follow the patient along with you Dictation was produced using [employer] dictation software. please excuse any grammatical, word or spelling errors. Time with Patient: Greater than 30
[2024-11-09 08:17] LABS: HCT 35.3 % (37.2-46.3); HGB 11.5 g/dL (12.0-15.0); MCH 29.7 pg (27.0-32.0); MCHC 32.6 g/dL (32.0-37.0); MCV 91.2 FL (80.0-97.0); Mean Platelet Volume 9.4 FL (9.5-12.2); NRBC Per 100 WBC 0 X 10*3/uL (0.00-0.01); Platelet Count 605 X 10*3/uL (140-440); RBC 3.87 X 10*6/uL (4.10-5.20); RDW 15.1 % (11.5-14.5)
--- NOTE | 2024-11-09 08:20 | P.PN ---
Subjective Progress Note Date: 11/09/24 Principal diagnosis: Right basilar masslike consolidation, right loculated effusion, leukocytosis, hyponatremia. History of gastric ulcer, raynaud's, distant remote history of smoking The patient was seen and examined sitting up in bed on the medical oncology unit in no current distress. Apparently she did have difficulty breathing last night with increased oxygen demands, nasal cannula was increased to 5 L nasal cannula, patient was given IV Lasix, currently at 2 L nasal cannula. First dose of lytics were instilled into right pigtail yesterday, 1420 mL returned since l ytics instillation. Chest x-ray reviewed, right-sided effusion appears improved, patient now has moderate left-sided effusion as well. Objective - Vital Signs Vital signs: Vital Signs Temp 98.2 F 11/09/24 07:14 Pulse 84 11/09/24 07:14 Resp 22 11/09/24 07:14 BP 97/60 11/09/24 07:14 Pulse Ox 95 11/09/24 07:43 FiO2 100 11/09/24 06:58 Intake & Output 11/08/24 11/09/24 11/09/24 18:59 06:59 18:59 Intake Total 1630 Output Total 1225 775 Balance 405 -775 Intake: Intake, IV Titration 1630 Amount Ampicillin-Sulbactam 3 gm 200 In Sodium Chloride 0.9% 100 ml @ 200 mls/hr IVPB Q6H [facility] Rx#:[id number] Sodium Chloride 0.9% 1, 1430 000 ml @ 130 mls/hr IV . Q7H42M [facility] Rx#:[id number] Output: Chest Tube Drainage 725 775 Chest Tube Right Upper 725 775 Posterior Chest Urine 500 Other: # Voids 3 - Exam CONSTITUTIONAL: Appears comfortable, cooperative, no acute distress at the time of my assessment RESPIRATORY: Lungs sounds diminished in the bases bilaterally. Respirations even, nonlabored. Currently on 2 L nasal cannula with oxygen saturation 93%. Strong cough. CARDIOVASCULAR: S1, S2 present. Regular rate and rhythm. Palpable peripheral pulses bilaterally. No edema present. No calf pain or tenderness noted. SCDs present. GASTROINTESTINAL: Abdomen soft, nontender, nondistended. Active bowel sounds present 4 quadrants. Tolerating diet GENITOURINARY: Continues to void INTEGUMENTARY: Skin is warm and dry with evidence of good perfusion NEUROLOGIC: Cranial nerves II through XII intact MUSKULOSKELETAL: Able to move all extremities, strength equal bilaterally PSYCHIATRIC: Alert and oriented to person place and time INVASIVE LINES AND TUBES: Right sided pigtail present to continuous wall suction, no airleak present, 775 mL output overnight, 1420 mL since lytic installation yesterday - Allied health notes Allied health notes reviewed: nursing - Labs CBC & Chem 7: 11/09/24 03:42 11/08/24 09:15 Labs: Abnormal Lab Results - Last 24 Hours (Table) 11/08/24 11/08/24 Range/Units 09:15 09:15 WBC 26.25 H (4.50-10.00) 10*3/uL RBC 3.67 L (4.10-5.20) 10*6/uL Hgb 11.2 L (12.0-15.0) g/dL Hct 32.4 L (37.2-46.3) % Plt Count 544 H (140-440) 10*3/uL MPV 9.2 L (9.5-12.2) fL Immature Gran # 0.84 H (0.00-0.04) 10*3/uL Neutrophils # (Manual) 21.53 H (1.3-7.7) k/uL Monocytes # (Manual) 1.05 H (0-1.0) k/uL Sodium 134 L (137-145) mmol/L Calcium 7.1 L (8.4-10.2) mg/dL Alkaline Phosphatase 181 H (38-126) U/L Total Protein 4.7 L (6.3-8.2) g/dL Albumin 1.8 L (3.5-5.0) g/dL Microbiology - Last 24 Hours (Table) 11/06/24 21:56 Blood Culture - Preliminary Blood 11/07/24 09:02 Acid Fast Bacilli Smear - Preliminary Pleural Fluid - Imaging and Cardiology Chest x-ray: report reviewed, image reviewed Assessment and Plan Assessment: Right basilar masslike consolidation, malignancy versus infection Right loculated effusion, complicated, related to infection versus cancer Leukocytosis Hyponatremia Chest pain, cough with sputum secondary to above Recent 8 pound weight loss over 6 weeks History of gastric ulcer Raynaud's Distant remote history of smoking Plan: Continue pigtail catheter on the right, will instill second dose of lytics today, allowed to dwell for 1 to 2 hours Continue chest tube to continuous wall suction, may take off suction for patient to ambulate in the hallway Antibiotics per infectious disease Wean oxygen as tolerated Incentive spirometry ordered and should be encouraged Increase activity as tolerated Medical management of other comorbidities per internal medicine, pulmonology, infectious disease More recommendations to follow
[2024-11-09] MEDS: FUROSEMIDE 10 MG/ML 2 ML VIAL IV ONE (08:43)
--- NOTE | 2024-11-09 09:21 | HP ---
HISTORY AND PHYSICAL CHIEF COMPLAINT: Pain in the right upper quadrant and right flank. HISTORY OF PRESENT ILLNESS: This is a first known admission for this 69-year-old female. She came to the emergency room because of pain in the right upper quadrant. She was found to have a mass in the liver as well as probable disease in the right lower lobe of the lung with an effusion. She has had no fever, chills, nausea, vomiting, etc. Past medical history, family history and personal and social histories reveal that she is on Prolia, ferrous sulfate, Vicodin and vitamin D3. She has never had a prior history of any malignancy. The only surgery she has had is for a perforated ulcer in 2006. She used to smoke, but stopped 5/6 years ago. PHYSICAL EXAMINATION: VITAL SIGNS: Normal. HEAD, EARS, EYES, NOSE, MOUTH AND THROAT: Normal. CHEST: Clear except for decreased breath sounds at the right base. CARDIAC: Normal. ABDOMEN: Little bit tender in the right upper quadrant. EXTREMITIES: Normal. NEUROLOGICAL: She is intact. IMPRESSION: She is admitted to the hospital with diagnoses; 1. Right upper quadrant pain. 2. Possible lesion in the liver. 3. Right pleural effusion with probable underlying malignancy. PLAN: 1. Bed rest. 2. IV fluids. 3. Consult with Pulmonology and Oncology. MMODL / IJN: [id number] /
[2024-11-09] MEDS: DORNASE ALFA 5 MG in SODIUM CHLORIDE 0.9% 50 ML IRRIGATION ONE (09:46)
[2024-11-09] MEDS: ALTEPLASE 10 MG in SODIUM CHLORIDE 0.9% 50 ML IRRIGATION ONE (09:46)
[2024-11-09] MEDS ORDERED: IPRATROPIUM-ALBUTEROL 3 ML NEB INHALATION PRN (12:09)
--- NOTE | 2024-11-09 12:09 | P.PN ---
Subjective Progress Note Date: 11/09/24 69-year-old female presenting the emergency department last night with a chief complaint of right upper quadrant abdominal pain with radiation to the right back. Ongoing for the last 2 days. Workup in the emergency department including abdominal/pelvis CT which does not show any acute intra-abdominal process. Remarkable for right middle lobe cystic lesion and moderate to large right-sided pleural effusion. Follow-up chest CTA did not show any evidence of pulmonary embolism. Right basilar masslike consolidation measuring 5.4 x 5.8 cm, concerning for possible malignancy. Additional surrounding airspace consolidation, possibly superimposed pneumonia. Large right-sided pleural effusion noted. Severe centrilobular emphysematous changes. Labs remarkable for a CBC with a WBC count of 62.7, hemoglobin 13.4, platelets 801. CMP with a sodium 130, potassium 5, chloride 95, serum bicarb 24, BUN 28, creatinine 0.88, glucose 105. Lactate 2.7 down to 1.1. AST 57, ALT 26, ALP 268. Troponins less than 0.012. NT proBNP 467. Lipase 26. Patient currently being evaluated in emergency department. She is resting comfortably on 2 L/min nasal cannula. SpO2 reading 98%. Again endorses above-mentioned right upper quadrant pain with radiation to the right thoracic level back. Previously, rated 9 out of 10 on a 10 point numerical scale. Started approximately 2 days ago. Denies any nausea, vomiting, change in bowel movements, diarrhea. Does endorse previous congested cough without much sputum production. Denies any significant purulent sputum or hemoptysis. Denies any fevers, chills. No previously diagnosed COPD. She is a former tobacco smoker, quit approximately 9 years ago. Prior to this, she smoked 1 pack, which lasted for almost a month. No family or personal history of lung cancer. No significant unintentional weight loss. No recent outpatient treatments for pneumonias. Her primary care provider is Dr. Muñoz. Given empiric doses of azithromycin, Rocephin, Flagyl, and vancomycin in the ED. Afebrile. Normal saline infusing at 130 mL/h. Nontoxic appearance. Hemodynamic stable. The patient is seen today November 08, 2024 in follow-up on the regular medical floor. She is currently sitting up in bed. Awake and alert in no acute distress. Maintaining good O2 saturations in the 90s on 2 L/min per nasal cannula. She did have a right sided pigtail catheter placed yesterday. She also had a thoracentesis performed yesterday. She continues with hazy yellow output. Her pleural fluid was exudate with a protein of 3.6 and an LDH greater than 2500. Procalcitonin was 2.74. She is currently on Unasyn. Chest x-ray continues to show ongoing moderate to large right pleural effusion with underlying atelectasis and/or consolidation. Minimally decreased compared to previous. Pleural fluid cultures are pending. White count 26.2. Hemoglobin 11.2. Platelets 544. Sodium 134. Potassium 3.7. Bicarb 23. BUN 14. Creatinine 0.52. Viral screen was negative for influenza A/B, RSV, COVID. The patient is seen today November 09, 2024 in follow-up on the regular medical floor. She is awake and alert in no acute distress. She did have some issues with desaturations earlier this morning with minimal activity. Chest x-ray shows worsening left-sided pleural effusion which is now moderate. She is currently maintaining good O2 saturations in the mid 90s on 5 L high flow nasal cannula. She is afebrile. Hemodynamically stable. She did have lytics instilled into the pigtail catheter yesterday. A total of 1420 mL have been returned since. Additional lytics will be instilled today per CT service. She continues to work well with the incentive spirometer. She remains on Unasyn. Pleural fluid cultures pending. Cytology pending. White count 38.6. Hemoglobin 11.5. Platelets 605. Objective - Vital Signs Vital signs: Vital Signs Temp 98.2 F 11/09/24 07:14 Pulse 84 11/09/24 07:14 Resp 22 11/09/24 07:14 BP 97/60 11/09/24 07:14 Pulse Ox 95 11/09/24 07:43 FiO2 100 11/09/24 06:58 Intake & Output 11/08/24 11/09/24 11/09/24 18:59 06:59 18:59 Intake Total 1630 Output Total 1225 775 Balance 405 -775 Intake: Intake, IV Titration 1630 Amount Ampicillin-Sulbactam 3 gm 200 In Sodium Chloride 0.9% 100 ml @ 200 mls/hr IVPB Q6H [facility] Rx#:[id number] Sodium Chloride 0.9% 1, 1430 000 ml @ 130 mls/hr IV . Q7H42M [facility] Rx#:[id number] Output: Chest Tube Drainage 725 775 Chest Tube Right Upper 725 775 Posterior Chest Urine 500 Other: # Voids 3 - Exam GENERAL EXAM: Alert, cachectic 69-year-old female, comfortable in no apparent distress. HEAD: Normocephalic and atraumatic EYES: Normal reaction of pupils, equal size. NOSE: Clear with pink turbinates. THROAT: No erythema or exudates. NECK: No masses, no JVD. CHEST: No chest wall deformity. Right sided pigtail catheter in place to Pleur- evac to wall suction. LUNGS: Equal air entry with diminished right lower lobe lung sounds. No conversational dyspnea. CVS: S1 and S2 normal with no audible murmur, regular rhythm. No extra heart sounds ABDOMEN: No hepatosplenomegaly, active bowel sounds, no guarding or rigidity. SPINE: No scoliosis or deformity SKIN: No rashes CENTRAL NERVOUS SYSTEM: No focal deficits, tone is normal in all 4 extremities. EXTREMITIES: There is no peripheral edema, clubbing, or cyanosis. Peripheral p ulses are intact. - Labs CBC & Chem 7: 11/09/24 03:42 11/08/24 09:15 Labs: Abnormal Lab Results - Last 24 Hours (Table) 11/09/24 Range/Units 03:42 WBC 38.60 H (4.50-10.00) X 10*3/uL RBC 3.87 L (4.10-5.20) X 10*6/uL Hgb 11.5 L (12.0-15.0) g/dL Hct 35.3 L (37.2-46.3) % RDW 15.1 H (11.5-14.5) % Plt Count 605 H (140-440) X 10*3/uL MPV 9.4 L (9.5-12.2) [place] Microbiology - Last 24 Hours (Table) 11/07/24 09:02 Gram Stain - Preliminary Pleural Fluid Body Fluid Culture - Preliminary 11/06/24 21:56 Blood Culture - Preliminary Blood 11/07/24 09:02 Acid Fast Bacilli Smear - Preliminary Pleural Fluid Assessment and Plan Assessment: Right basilar masslike consolidation measuring 5.4 x 5.8 cm, consider malignancy; superimposed bacterial pneumonia is not excluded. Procalcitonin 2.74. Initiated on Unasyn Large right-sided pleural effusion, status post thoracentesis with 500 cc of thick turbid fluid returned, status post pigtail catheter insertion to Pleur- evac Acute hypoxemic respiratory failure, currently on 2 L/min nasal cannula, secondary to above Acute leukocytosis, WBC count 62.7 Hyponatremia, appears euvolemic Former tobacco smoker, quit approximately 9 years ago Plan: The patient was seen and evaluated Chest x-ray, labs and medications reviewed Right sided pigtail catheter in place Still with pleural effusion/consolidation Receiving a second round of lytics today Cultures and cytology of the pleural fluid pending Currently on Unasyn Add bronchodilators Continue the increased use of the incentive spirometer Titrate down the FiO2 as tolerated Increase her activity as tolerated Transfer to a monitored bed We will continue to follow I have personally seen and examined the patient, performed the documentation and the assessment and plan as written. Number of minutes spent on the visit: 10 Dictation was produced using [employer] dictation software. Please excuse any grammatical, word or spelling errors.
[2024-11-09] MEDS ORDERED: VANCOMYCIN IV PER PHARMACY 1 EACH MISC MISCELLANE PRN (13:37)
[2024-11-09] MEDS: VANCOMYCIN 1,000 MG in SODIUM CHLORIDE 0.9% 250 ML IVPB ONE (14:40)
[2024-11-09] MEDS: IPRATROPIUM-ALBUTEROL 3 ML NEB INHALATION SCH (16:06)
[2024-11-09] MEDS: CEFEPIME 2 GM in SODIUM CHLORIDE 0.9% 100 ML IVPB SCH (17:20)
[2024-11-09] MEDS: VANCOMYCIN 1,000 MG in SODIUM CHLORIDE 0.9% 250 ML IVPB SCH (22:00)
--- NOTE | 2024-11-10 02:48 | PN ---
PROGRESS NOTE DATE OF SERVICE: 11/09/2024 CHIEF COMPLAINT: Right upper quadrant pain. HISTORY OF PRESENT ILLNESS: This lady has been doing fairly well. She had a thoracentesis. So far, there did not appear to be any malignant cells in the collected fluid. She is undergoing further evaluation for the lesion in the spleen. Her white count is elevated at 38,600. PHYSICAL EXAMINATION: HEAD, EARS, EYES, NOSE, MOUTH AND THROAT: Normal. CHEST: Sounds clear. CARDIAC: Normal. ABDOMEN: Soft, nontender. IMPRESSION: 1. Right pleural effusion. 2. Possible neoplasm in the right lower lung. 3. Liver mass. PLAN: She is continues to go through further workup to determine the etiology of her right pleural effusion as well as her liver mass. MMODL / IJN: [id number] /
--- NOTE | 2024-11-10 07:43 | XR ---
EXAMINATION TYPE: XR chest 1V portable DATE OF EXAM: 11/10/2024 7:36 AM COMPARISON: 11/09/2024 CLINICAL INDICATION: Female, 69 years old with history of Right empyema, , FINDINGS: Right basilar pleural catheter in place. Increased now moderate right pleural effusion. Small left pl eural effusion persists. Interstitial changes in the lower lungs unchanged as well. Atherosclerotic a rch calcifications. Right heart margin obscured by adjacent pleural parenchymal opacity. IMPRESSION: Right basilar pleural catheter in place. Increased moderate right pleural effusion with adjacent atel ectasis and/or consolidation. Similar small left pleural effusion. [facility], , 11/10/2024 7:41 AM
[2024-11-10 08:10] LABS: African American GFR (CKD) >90 (>60 ml/min/1.73 sqM); Non-African American GFR(CKD) >90 (>60 ml/min/1.73 sqM)
[2024-11-10] MEDS: ALTEPLASE 10 MG in SODIUM CHLORIDE 0.9% 50 ML IRRIGATION ONE (11:31)
[2024-11-10] MEDS: DORNASE ALFA 5 MG in SODIUM CHLORIDE 0.9% 50 ML IRRIGATION ONE (11:31)
--- NOTE | 2024-11-10 11:57 | P.PN ---
Subjective Progress Note Date: 11/10/24 Principal diagnosis: Right basilar masslike consolidation, right loculated effusion, empyema, leukocytosis, hyponatremia. Medical history significant for gastric ulcer, raynaud's, distant remote history of smoking. Status post successful 8 [place] tube placement within the right pleural space completed by interventional radiology. The patient was seen and examined in follow-up today November 10, 2024 at her bedside on the third floor cardiac stepdown unit. She is sitting up to the bedside edge, is awake, alert, oriented x 3 and is in no acute apparent distress. Denies any complaints of shortness of breath at this time and also denies any complaints of pain at this time. She she reports her breathing feels much improved today from yesterday. Oxygen saturations are 97% on 5 L nasal cannula and she is achieving 1250 mL on her incentive spirometry with encouragement. Ri ght pigtail catheter remains in place to low continuous wall suction -20 cm of H2O. No airleak is present. Draining thick serosanguineous, purulent drainage with 80 mL output in the last 8 hours and 500 mL output in the last 24 hours. She has received 2 doses of lytic installation thus far. Chest x-ray results reviewed. Objective - Vital Signs Vital signs: Vital Signs Temp 98.1 F 11/10/24 08:20 Pulse 84 11/10/24 08:36 Resp 19 11/10/24 08:20 BP 105/67 11/10/24 08:20 Pulse Ox 95 11/10/24 08:20 FiO2 100 11/09/24 06:58 Intake & Output 11/09/24 11/10/24 11/10/24 18:59 06:59 18:59 Intake Total 10 20 190 Output Total 320 80 Balance -310 -60 190 Intake: IV 10 20 10 Invasive Line 2 10 20 10 Oral 180 Output: Chest Tube Drainage 320 80 Chest Tube Right Upper 320 80 Posterior Chest Other: Voiding Method Bedside Commode Bedside Commode # Voids 1 1 - Exam CONSTITUTIONAL: Appears comfortable, cooperative, no acute distress. RESPIRATORY: Lungs sounds diminished in the bases bilaterally, right greater than left. Respirations symmetrical, nonlabored. Currently on 4 L nasal cannula with oxygen saturation 97%. Strong cough. CARDIOVASCULAR: S1, S2 present. Regular rate and rhythm. Palpable peripheral pulses bilaterally. No edema present. No calf pain or tenderness noted. SCDs present. GASTROINTESTINAL: Abdomen soft, nontender, nondistended. Active bowel sounds present 4 quadrants. Tolerating diet. GENITOURINARY: Continues to void. INTEGUMENTARY: Skin is warm and dry with with no clubbing or cyanosis present. NEUROLOGIC: Cranial nerves II through XII intact. No focal deficits. MUSKULOSKELETAL: Able to move all extremities, strength equal bilaterally. PSYCHIATRIC: Alert and oriented to person place and time. INVASIVE LINES AND TUBES: Right sided pigtail present to continuous wall suction, no airleak present, 80 mL output overnight, 500 mL since lytic installa tion yesterday. - Allied health notes Allied health notes reviewed: nursing - Labs CBC & Chem 7: 11/09/24 03:42 11/10/24 06:22 Labs: Microbiology - Last 24 Hours (Table) 11/06/24 21:56 Blood Culture - Preliminary Blood 11/07/24 09:02 Gram Stain - Preliminary Pleural Fluid Body Fluid Culture - Preliminary - Imaging and Cardiology Chest x-ray: report reviewed, image reviewed Assessment and Plan Assessment: Right basilar masslike consolidation, malignancy versus infection Right loculated effusion, complicated, related to infection versus cancer, status post right pigtail catheter placement by interventional radiology Leukocytosis Hyponatremia Chest pain, cough with sputum secondary to above Recent 8 pound weight loss over 6 weeks History of gastric ulcer Raynaud's Plan: Continue pigtail catheter on the right, will instill third dose of lytics today, allowed to dwell for 1 hour. Continue chest tube to continuous wall suction, may take off suction for patient to ambulate in the hallway. Antibiotics per infectious disease. Continue to monitor daily chest x-rays. Wean oxygen as tolerated. Encourage incentive spirometry use 10 times every hour while awake. Increase activity as tolerated. Physical therapy is following. Medical management of other comorbidities per internal medicine, pulmonology, infectious disease. More recommendations to follow based on patient's clinical course. Time with Patient: Greater than 30
--- NOTE | 2024-11-10 12:49 | P.PN ---
Subjective Progress Note Date: 11/10/24 Principal diagnosis: Rt lung mass IN f/u today pt states she is feeling well, no fevers, N,V, chest pain, SOB is much improved, no other c/o. Objective - Vital Signs Vital signs: Vital Signs Temp 98.1 F 11/10/24 08:20 Pulse 84 11/10/24 08:36 Resp 19 11/10/24 08:21 BP 105/67 11/10/24 08:20 Pulse Ox 95 11/10/24 08:20 FiO2 100 11/09/24 06:58 Intake & Output 11/09/24 11/10/24 11/10/24 18:59 06:59 18:59 Intake Total 10 20 190 Output Total 320 80 Balance -310 -60 190 Intake: IV 10 20 10 Invasive Line 2 10 20 10 Oral 180 Output: Chest Tube Drainage 320 80 Chest Tube Right Upper 320 80 Posterior Chest Other: Voiding Method Bedside Commode Bedside Commode Bedside Commode # Voids 1 1 - Constitutional General appearance: Present: average body habitus, cooperative, no acute distress - EENT Eyes: Present: anicteric sclerae, EOMI ENT: Present: hearing grossly normal - Respiratory Respiratory: right: diminished (lower 1/3rd), bilateral: CTA - Cardiovascular Rhythm: regular - Peripheral edema leg Peripheral Edema: bilateral: None - Neurologic Neurologic: Present: CNII-XII intact - Musculoskeletal Musculoskeletal: Present: generalized weakness - Psychiatric Psychiatric: Present: A&O x's 3, appropriate affect, intact judgment & insight - Labs CBC & Chem 7: 11/09/24 03:42 11/10/24 06:22 Labs: Microbiology - Last 24 Hours (Table) 11/06/24 21:56 Blood Culture - Preliminary Blood 11/07/24 09:02 Gram Stain - Preliminary Pleural Fluid Body Fluid Culture - Preliminary - Imaging and Cardiology CT scan - chest: report reviewed Assessment and Plan (1) Lung mass Current Visit: Yes Status: Acute Priority: High Code(s): R91.8 - OTHER NONSPECIFIC ABNORMAL FINDING OF LUNG FIELD SNOMED Code(s): 789026561 (2) Leukocytosis Current Visit: Yes Status: Acute Priority: Medium Code(s): D72.829 - ELEVATED WHITE BLOOD CELL COUNT, UNSPECIFIED SNOMED Code(s): 599439223 (3) Thrombocytosis Current Visit: Yes Status: Acute Priority: Medium Code(s): D75.839 - THROMBOCYTOSIS, UNSPECIFIED SNOMED Code(s): 6328561 Plan: Pneumonia vs lung mass vs consolidation -Pt is on IV abd, has checst tube in place -Pleural fluid was neg for malignancy. Do recommend total of 3 neg pleural fluid cytologies. -Recommend pt follow Pulm/CTS until resolution of pleural fluid/infection to ensure the consolidation resolves and an underlying mass is not being missed -Pt verbalized understanding and agrees with the plan Leukocytosis and thrombocytosis -WBC slowly trending libertad, 38.6 today. Likely leukomoid reaction to severe infection -Thrombocytosis likely acute phase reactant to infection-stable -Continue to monitor CBC
--- NOTE | 2024-11-10 13:18 | P.PN ---
Subjective Progress Note Date: 11/10/24 Principal diagnosis: Complicated exudative right-sided pleural effusion, differential diagnosis, includes malignancy and/or parapneumonic pleural effusion/empyema 69-year-old female presenting the emergency department last night with a chief complaint of right upper quadrant abdominal pain with radiation to the right back. Ongoing for the last 2 days. Workup in the emergency department including abdominal/pelvis CT which does not show any acute intra-abdominal p rocess. Remarkable for right middle lobe cystic lesion and moderate to large right-sided pleural effusion. Follow-up chest CTA did not show any evidence of pulmonary embolism. Right basilar masslike consolidation measuring 5.4 x 5.8 cm, concerning for possible malignancy. Additional surrounding airspace consolidation, possibly superimposed pneumonia. Large right-sided pleural effusion noted. Severe centrilobular emphysematous changes. Labs remarkable for a CBC with a WBC count of 62.7, hemoglobin 13.4, platelets 801. CMP with a sodium 130, potassium 5, chloride 95, serum bicarb 24, BUN 28, creatinine 0.88, glucose 105. Lactate 2.7 down to 1.1. AST 57, ALT 26, ALP 268. Troponins less than 0.012. NT proBNP 467. Lipase 26. Patient currently being evaluated in emergency department. She is resting comfortably on 2 L/min nasal cannula. SpO2 reading 98%. Again endorses above-mentioned right upper quadrant pain with radiation to the right thoracic level back. Previously, rated 9 out of 10 on a 10 point numerical scale. Started approximately 2 days ago. Denies any nausea, vomiting, change in bowel movements, diarrhea. Does endorse previous congested cough without much sputum production. Denies any significant purulent sputum or hemoptysis. Denies any fevers, chills. No previously diagnosed COPD. She is a former tobacco smoker, quit approximately 9 years ago. Prior to this, she smoked 1 pack, which lasted for almost a month. No family or personal history of lung cancer. No significant unintentional weight loss. No recent outpatient treatments for pneumonias. Her primary care provider is Dr. Muñoz. Given empiric doses of azithromycin, Rocephin, Flagyl, and vancomycin in the ED. Afebrile. Normal saline infusing at 130 mL/h. Nontoxic appearance. H emodynamic stable. The patient is seen today November 08, 2024 in follow-up on the regular medical floor. She is currently sitting up in bed. Awake and alert in no acute distress. Maintaining good O2 saturations in the 90s on 2 L/min per nasal cannula. She did have a right sided pigtail catheter placed yesterday. She also had a thoracentesis performed yesterday. She continues with hazy yellow output. Her pleural fluid was exudate with a protein of 3.6 and an LDH greater than 2500. Procalcitonin was 2.74. She is currently on Unasyn. Chest x-ray continues to show ongoing moderate to large right pleural effusion with underlying atelectasis and/or consolidation. Minimally decreased compared to previous. Pleural fluid cultures are pending. White count 26.2. Hemoglobin 11.2. Platelets 544. Sodium 134. Potassium 3.7. Bicarb 23. BUN 14. Creatinine 0.52. Viral screen was negative for influenza A/B, RSV, COVID. The patient is seen today November 09, 2024 in follow-up on the regular medical floor. She is awake and alert in no acute distress. She did have some issues with desaturations earlier this morning with minimal activity. Chest x-ray shows worsening left-sided pleural effusion which is now moderate. She is currently maintaining good O2 saturations in the mid 90s on 5 L high flow nasal cannula. She is afebrile. Hemodynamically stable. She did have lytics instilled into the pigtail catheter yesterday. A total of 1420 mL have been returned since. Additional lytics will be instilled today per CT service. She continues to work well with the incentive spirometer. She remains on Unasyn. Pleural fluid cultures pending. Cytology pending. White count 38.6. Hemoglobin 11.5. Platelets 605. Seen today on 11/10/2024, patient is feeling better, breathing easier, chest x- ray is not showing much improvement on the right side pleural effusion. Still undergoing lytic therapy. May have to consider repeat CT of the chest in the next couple of days. Clinically however the patient is doing well, remains on antibiotics, cytology from the pleural effusion came back negative, cultures remain negative, still the differential diagnosis includes malignancy and/or parapneumonic complicated pleural effusion. Objective - Vital Signs Vital signs: Vital Signs Temp 97.5 F L 11/10/24 10:43 Pulse 115 H 11/10/24 10:43 Resp 19 11/10/24 10:43 BP 110/70 11/10/24 10:43 Pulse Ox 98 11/10/24 10:43 FiO2 100 11/09/24 06:58 Intake & Output 11/09/24 11/10/24 11/10/24 18:59 06:59 18:59 Intake Total 10 20 210 Output Total 320 80 Balance -310 -60 210 Intake: IV 10 20 30 Invasive Line 2 10 20 20 Invasive Line 3 10 Oral 180 Output: Chest Tube Drainage 320 80 Chest Tube Right Upper 320 80 Posterior Chest Other: Voiding Method Bedside Commode Bedside Commode Bedside Commode # Voids 1 1 - Exam GENERAL EXAM: Alert, cachectic 69-year-old female, comfortable in no apparent distress. On 3 L nasal cannula O2 sat 98% HEAD: Normocephalic and atraumatic EYES: Normal reaction of pupils, equal size. NOSE: Clear with pink turbinates. THROAT: No erythema or exudates. NECK: No masses, no JVD. CHEST: No chest wall deformity. Right sided pigtail catheter in place to Pleur- evac to wall suction. LUNGS: Equal air entry with diminished right lower lobe lung sounds. No conversational dyspnea. Right-sided pigtail catheter remains in place connected to Pleur-evac. CVS: S1 and S2 normal with no audible murmur, regular rhythm. No extra heart sounds ABDOMEN: No hepatosplenomegaly, active bowel sounds, no guarding or rigidity. SKIN: No rashes CENTRAL NERVOUS SYSTEM: Alert and oriented x 3 no focal deficit EXTREMITIES: No clubbing edema or cyanosis - Labs CBC & Chem 7: 11/09/24 03:42 11/10/24 06:22 Labs: Microbiology - Last 24 Hours (Table) 11/06/24 21:56 Blood Culture - Preliminary Blood 11/07/24 09:02 Gram Stain - Preliminary Pleural Fluid Body Fluid Culture - Preliminary Assessment and Plan Assessment: Impression: Complicated right-sided pleural effusion/exudative, however remains negative for malignancy and negative for infection Status post right-sided thoracentesis followed by pigtail catheter placement and lytic therapy with clinical improvement. Acute hypoxic respiratory failure secondary to above Acute leukocytosis/leukemoid reaction improving, since presentation. Questionable lung mass versus consolidation, I am recommending repeat CT of the chest in the next 2 days and decide whether further intervention is necessary for tissue diagnosis. Recommendation: Continue present supportive care measures Continue lytic therapy Continue pigtail catheter in place and drainage Continue antibiotics Continue to monitor labs Suggest repeat CT of the chest in the next 2 or 3 days. Will continue to follow Time with Patient: Less than 30
--- NOTE | 2024-11-10 15:43 | P.PN ---
Subjective Progress Note Date: 11/09/24 Principal diagnosis: Reason for follow-up is pneumonia/empyema Patient is a 69-year-old female with a past medical history significant for ulcer Raynaud's phenomena and osteoporosis presenting to the hospital for evaluation of right-sided chest pain and cough, patient be diagnosed with right-sided effusion history of empyema and pneumonia prompted this consultation. On today's evaluation that is 11/09/2024, Patient is afebrile this morning patient did have worsening of her respiratory symptoms this morning and hypoxemia necessitating transfer to the telemetry floor patient denies any chest pain or worsening cough no vomiting or diarrhea Patient did have a worsening of the white count which is up to 38.60 creatinine 0.52 blood and pleural fluid culture currently pending Objective - Vital Signs Vital signs: Vital Signs Temp 98.3 F 11/09/24 12:46 Pulse 68 11/09/24 12:47 Resp 20 11/09/24 12:47 BP 111/70 11/09/24 12:46 Pulse Ox 93 L 11/09/24 12:46 FiO2 100 11/09/24 06:58 Intake & Output 11/08/24 11/09/24 11/09/24 18:59 06:59 18:59 Intake Total 1630 10 Output Total 1225 775 Balance 405 -775 10 Intake: IV 10 Invasive Line 2 10 Intake, IV Titration 1630 Amount Ampicillin-Sulbactam 3 gm 200 In Sodium Chloride 0.9% 100 ml @ 200 mls/hr IVPB Q6H [facility] Rx#:[id number] Sodium Chloride 0.9% 1, 1430 000 ml @ 130 mls/hr IV . Q7H42M [facility] Rx#:[id number] Output: Chest Tube Drainage 725 775 Chest Tube Right Upper 725 775 Posterior Chest Urine 500 Other: Voiding Method Bedside Commode # Voids 3 - Exam GENERAL DESCRIPTION: An elderly female lying in bed in no distress RESPIRATORY SYSTEM: Unlabored breathing , decreased breath sounds at bases HEART: S1 S2 regular rate and rhythm , ABDOMEN: Soft , no tenderness EXTREMITIES: No edema feet - Labs CBC & Chem 7: 11/09/24 03:42 11/10/24 06:22 Labs: Abnormal Lab Results - Last 24 Hours (Table) 11/09/24 Range/Units 03:42 WBC 38.60 H (4.50-10.00) X 10*3/uL RBC 3.87 L (4.10-5.20) X 10*6/uL Hgb 11.5 L (12.0-15.0) g/dL Hct 35.3 L (37.2-46.3) % RDW 15.1 H (11.5-14.5) % Plt Count 605 H (140-440) X 10*3/uL MPV 9.4 L (9.5-12.2) [place] Microbiology - Last 24 Hours (Table) 11/07/24 09:02 Gram Stain - Preliminary Pleural Fluid Body Fluid Culture - Preliminary 11/06/24 21:56 Blood Culture - Preliminary Blood Assessment and Plan (1) Sepsis Current Visit: Yes Status: Acute Code(s): A41.9 - SEPSIS, UNSPECIFIED ORGANISM SNOMED Code(s): 84461267 (2) Empyema lung Current Visit: Yes Status: Acute Code(s): J86.9 - PYOTHORAX WITHOUT FISTULA SNOMED Code(s): 06870768 (3) Pneumonia Current Visit: Yes Status: Acute Code(s): J18.9 - PNEUMONIA, UNSPECIFIED ORGANISM SNOMED Code(s): 930136728 Plan: 1patient presented to hospital with sepsis in this patient who did have tachypnea and tachycardia elevated white count as well as elevated lactic acid meeting criteria for SIRS/sepsis source is right-sided pneumonia with a question of postobstructive and a possible component of empyema likely community-acquired pathogen in this patient with no history of recent antibiotic exposure or flulike symptoms 2-patient did have worsening of her respiratory status as well as worsening of the white count I will discontinue this and start the patient on vancomycin and cefepime while waiting for the culture to finalize Dictation was produced using [employer] dictation software. please excuse any grammatical, word or spelling errors. Time with Patient: Less than 30
--- NOTE | 2024-11-10 15:44 | P.PN ---
Subjective Progress Note Date: 11/10/24 Principal diagnosis: Reason for follow-up is pneumonia/empyema Patient is a 69-year-old female with a past medical history significant for ulcer Raynaud's phenomena and osteoporosis presenting to the hospital for evaluation of right-sided chest pain and cough, patient be diagnosed with right-sided effusion history of empyema and pneumonia prompted this consultation. On today's evaluation that is 11/10/2024,the patient denies any fever or any chills, patient is breathing slightly comfortably on 3 L nasal oxygen, the patient denies chest pain shortness of breath and no worsening cough, patient denies abdominal pain, no nausea vomiting or diarrhea. Patient did have a creatinine 0.56 no CBC was done today cultures are currently pending Objective - Vital Signs Vital signs: Vital Signs Temp 97.5 F L 11/10/24 10:43 Pulse 115 H 11/10/24 10:43 Resp 19 11/10/24 10:43 BP 110/70 11/10/24 10:43 Pulse Ox 98 11/10/24 10:43 FiO2 100 11/09/24 06:58 Intake & Output 11/09/24 11/10/24 11/10/24 18:59 06:59 18:59 Intake Total 10 20 210 Output Total 320 80 Balance -310 -60 210 Intake: IV 10 20 30 Invasive Line 2 10 20 20 Invasive Line 3 10 Oral 180 Output: Chest Tube Drainage 320 80 Chest Tube Right Upper 320 80 Posterior Chest Other: Voiding Method Bedside Commode Bedside Commode Bedside Commode # Voids 1 1 - Exam GENERAL DESCRIPTION: An elderly female lying in bed in no distress RESPIRATORY SYSTEM: Unlabored breathing , decreased breath sounds at bases HEART: S1 S2 regular rate and rhythm , ABDOMEN: Soft , no tenderness EXTREMITIES: No edema feet - Labs CBC & Chem 7: 11/09/24 03:42 11/10/24 06:22 Labs: Microbiology - Last 24 Hours (Table) 11/06/24 21:56 Blood Culture - Preliminary Blood 11/07/24 09:02 Gram Stain - Preliminary Pleural Fluid Body Fluid Culture - Preliminary Assessment and Plan (1) Sepsis Current Visit: Yes Status: Acute Code(s): A41.9 - SEPSIS, UNSPECIFIED ORGANISM SNOMED Code(s): 59867738 (2) Empyema lung Current Visit: Yes Status: Acute Code(s): J86.9 - PYOTHORAX WITHOUT FISTULA SNOMED Code(s): 22225655 (3) Pneumonia Current Visit: Yes Status: Acute Code(s): J18.9 - PNEUMONIA, UNSPECIFIED ORGANISM SNOMED Code(s): 573780341 Plan: 1patient presented to hospital with sepsis in this patient who did have tachypnea and tachycardia elevated white count as well as elevated lactic acid meeting criteria for SIRS/sepsis source is right-sided pneumonia with a question of postobstructive and a possible component of empyema likely community-acquired pathogen in this patient with no history of recent antibiotic exposure or fl ulike symptoms 2-patient did have some improvement in her respiratory symptoms remains to be afebrile had no CBC was done today, we will treat with vancomycin and cefepime while waiting for the culture to finalize Dictation was produced using [employer] dictation software. please excuse any grammatical, word or spelling errors. Time with Patient: Less than 30
--- NOTE | 2024-11-10 23:24 | PN ---
PROGRESS NOTE CHIEF COMPLAINT: Right upper quadrant abdominal pain with right pleural effusion and mass in the right lower lobe. HISTORY OF PRESENT ILLNESS: This lady is doing fairly well. Thoracentesis failed to demonstrate any malignant cells. She has not had any significant pain, fever, chills, etc. Her white count is elevated. She is continuing to go through other studies to further elucidate possible problems of the right lower lobe of the liver. PHYSICAL EXAMINATION: CHEST: Clear. CARDIAC: Exam is normal. ABDOMEN: Soft, nontender with no masses. IMPRESSION: 1. Right pleural effusion with possible underlying right lower lobe lesion. 2. Lesion in the liver. PLAN: Continue workup. She is doing well and studies continue. MMODL / IJN: [id number] /
--- NOTE | 2024-11-11 07:50 | P.PN ---
Subjective Progress Note Date: 11/11/24 Principal diagnosis: Right basilar masslike consolidation, right loculated effusion, empyema, leukocytosis, hyponatremia. Medical history significant for gastric ulcer, raynaud's, distant remote history of smoking. Status post successful 8 [place] tube placement within the right pleural space completed by interventional radiology. The patient was seen and examined in follow-up today November 11, 2024 at her bedside on the third floor cardiac stepdown unit. She is currently sitting up in bed, tolerating her breakfast. She is awake, alert, oriented x 3 and is in no acute apparent distress. She denies any complaints of shortness of breath at this time, although is complaining of some pain to her right chest, currently rating her pain 5 out of 10 on the pain scale. Oxygen saturations are 93% on 2 L nasal cannula and she is achieving 1000 mL on her incentive spirometry. Right pigtail catheter chest tube, remains in place to low continuous wall suction -20 cm H2O. No airleak is present. Draining thin serosanguineous/purulent drainage with 40 mL output in the last 8 hours and 1.4 L output in the last 24 hours. She received a third dose of alteplase/dornase yesterday November 10, 2024. Chest x-ray results reviewed. Objective - Vital Signs Vital signs: Vital Signs Temp 98.7 F 11/11/24 03:38 Pulse 64 11/11/24 03:38 Resp 19 11/11/24 03:38 BP 138/76 11/11/24 03:38 Pulse Ox 90 L 11/11/24 03:38 FiO2 100 11/09/24 06:58 Intake & Output 11/10/24 11/11/24 11/11/24 18:59 06:59 18:59 Intake Total 390 Output Total 650 380 Balance -260 -380 Weight 57.72 kg Intake: IV 30 Invasive Line 2 20 Invasive Line 3 10 Oral 360 Output: Chest Tube Drainage 650 280 Chest Tube Right Upper 650 280 Posterior Chest Urine 100 Other: Voiding Method Bedside Commode Bedside Commode - Exam CONSTITUTIONAL: Appears comfortable, cooperative, no acute distress. RESPIRATORY: Lungs sounds diminished in the bases bilaterally, right greater than left. Respirations symmetrical, nonlabored. Currently on 2 L nasal cannula with oxygen saturation 93%. Strong cough. CARDIOVASCULAR: S1, S2 present. Regular rate and rhythm. Palpable peripheral pulses bilaterally. No edema present. No calf pain or tenderness noted. SCDs present. GASTROINTESTINAL: Abdomen soft, nontender, nondistended. Active bowel sounds present 4 quadrants. Tolerating diet. GENITOURINARY: Continues to void. INTEGUMENTARY: Skin is warm and dry with with no clubbing or cyanosis present. NEUROLOGIC: Cranial nerves II through XII intact. No focal deficits. MUSKULOSKELETAL: Able to move all extremities, strength equal bilaterally. PSYCHIATRIC: Alert and oriented to person place and time. INVASIVE LINES AND TUBES: Right sided pigtail present to continuous wall suction, no airleak present, 40 mL output overnight, 1.4 L since lytic installation yesterday. - Allied health notes Allied health notes reviewed: nursing - Labs CBC & Chem 7: 11/09/24 03:42 11/10/24 06:22 Labs: Microbiology - Last 24 Hours (Table) 11/09/24 14:20 Nasal Screen MRSA/MSSA - Final Nasal Swab 11/06/24 21:56 Blood Culture - Preliminary Blood - Imaging and Cardiology Chest x-ray: report reviewed, image reviewed Assessment and Plan Assessment: Right basilar masslike consolidation, malignancy versus infection Right loculated effusion, complicated, related to infection versus cancer, status post right pigtail catheter placement by interventional radiology Leukocytosis Hyponatremia Chest pain, cough with sputum secondary to above Recent 8 pound weight loss over 6 weeks History of gastric ulcer Raynaud's Plan: Continue pigtail catheter on the right, will instill a fourth dose of lytics today, allowed to dwell for 1 hour. Continue chest tube to continuous wall suction, may take off suction for patient to ambulate in the hallway. Antibiotics per infectious disease. Continue to monitor daily chest x-rays. Wean oxygen as tolerated. Encourage incentive spirometry use 10 times every hour while awake. Increase activity as tolerated. Physical therapy is following. Medical management of other comorbidities per internal medicine, pulmonology, infectious disease. More recommendations to follow based on patient's clinical course. Time with Patient: Greater than 30
--- NOTE | 2024-11-11 07:52 | XR ---
EXAMINATION TYPE: XR chest 1V portable DATE OF EXAM: 11/11/2024 CLINICAL INDICATION: Female, 69 years old with history of Right empyema, progress study. TECHNIQUE: Single AP portable upright view of the chest is obtained. COMPARISON: Chest x-ray from one day earlier FINDINGS: Right basilar pleural catheter redemonstrated. Persistent small to moderate right pleural effusion sl ightly improved. Small left pleural effusion is stable. Bibasilar opacities are present. Cardiac silh ouette size upper limits of normal with atherosclerotic thoracic aorta. Osseous structures are intact . IMPRESSION: Right basilar pleural catheter in place. [id number] sized right pleural effusion slightly impr jose from most recent prior. Stable small left pleural effusion. Persistent bibasilar acute infiltrat es and/or atelectasis. [facility], , 11/11/2024 7:49 AM
[2024-11-11 10:35] LABS: African American GFR (CKD) >90 (>60 ml/min/1.73 sqM); Non-African American GFR(CKD) >90 (>60 ml/min/1.73 sqM)
[2024-11-11] MEDS: VANCOMYCIN TROUGH DUE 1 EACH MISC MISCELLANE ONE (11:13)
[2024-11-11] MEDS ORDERED: RX INFO: IV CONTRAST WAS GIVEN 1 EACH MISC MISCELLANE PRN (14:50)
--- NOTE | 2024-11-11 14:55 | P.PN ---
Subjective Progress Note Date: 11/11/24 Principal diagnosis: Complicated exudative right-sided pleural effusion, differential diagnosis, includes malignancy and/or parapneumonic pleural effusion/empyema 69-year-old female presenting the emergency department last night with a chief complaint of right upper quadrant abdominal pain with radiation to the right back. Ongoing for the last 2 days. Workup in the emergency department including abdominal/pelvis CT which does not show any acute intra-abdominal p rocess. Remarkable for right middle lobe cystic lesion and moderate to large right-sided pleural effusion. Follow-up chest CTA did not show any evidence of pulmonary embolism. Right basilar masslike consolidation measuring 5.4 x 5.8 cm, concerning for possible malignancy. Additional surrounding airspace consolidation, possibly superimposed pneumonia. Large right-sided pleural effusion noted. Severe centrilobular emphysematous changes. Labs remarkable for a CBC with a WBC count of 62.7, hemoglobin 13.4, platelets 801. CMP with a sodium 130, potassium 5, chloride 95, serum bicarb 24, BUN 28, creatinine 0.88, glucose 105. Lactate 2.7 down to 1.1. AST 57, ALT 26, ALP 268. Troponins less than 0.012. NT proBNP 467. Lipase 26. Patient currently being evaluated in emergency department. She is resting comfortably on 2 L/min nasal cannula. SpO2 reading 98%. Again endorses above-mentioned right upper quadrant pain with radiation to the right thoracic level back. Previously, rated 9 out of 10 on a 10 point numerical scale. Started approximately 2 days ago. Denies any nausea, vomiting, change in bowel movements, diarrhea. Does endorse previous congested cough without much sputum production. Denies any significant purulent sputum or hemoptysis. Denies any fevers, chills. No previously diagnosed COPD. She is a former tobacco smoker, quit approximately 9 years ago. Prior to this, she smoked 1 pack, which lasted for almost a month. No family or personal history of lung cancer. No significant unintentional weight loss. No recent outpatient treatments for pneumonias. Her primary care provider is Dr. Muñoz. Given empiric doses of azithromycin, Rocephin, Flagyl, and vancomycin in the ED. Afebrile. Normal saline infusing at 130 mL/h. Nontoxic appearance. H emodynamic stable. The patient is seen today November 08, 2024 in follow-up on the regular medical floor. She is currently sitting up in bed. Awake and alert in no acute distress. Maintaining good O2 saturations in the 90s on 2 L/min per nasal cannula. She did have a right sided pigtail catheter placed yesterday. She also had a thoracentesis performed yesterday. She continues with hazy yellow output. Her pleural fluid was exudate with a protein of 3.6 and an LDH greater than 2500. Procalcitonin was 2.74. She is currently on Unasyn. Chest x-ray continues to show ongoing moderate to large right pleural effusion with underlying atelectasis and/or consolidation. Minimally decreased compared to previous. Pleural fluid cultures are pending. White count 26.2. Hemoglobin 11.2. Platelets 544. Sodium 134. Potassium 3.7. Bicarb 23. BUN 14. Creatinine 0.52. Viral screen was negative for influenza A/B, RSV, COVID. The patient is seen today November 09, 2024 in follow-up on the regular medical floor. She is awake and alert in no acute distress. She did have some issues with desaturations earlier this morning with minimal activity. Chest x-ray shows worsening left-sided pleural effusion which is now moderate. She is currently maintaining good O2 saturations in the mid 90s on 5 L high flow nasal cannula. She is afebrile. Hemodynamically stable. She did have lytics instilled into the pigtail catheter yesterday. A total of 1420 mL have been returned since. Additional lytics will be instilled today per CT service. She continues to work well with the incentive spirometer. She remains on Unasyn. Pleural fluid cultures pending. Cytology pending. White count 38.6. Hemoglobin 11.5. Platelets 605. Seen today on 11/10/2024, patient is feeling better, breathing easier, chest x- ray is not showing much improvement on the right side pleural effusion. Still undergoing lytic therapy. May have to consider repeat CT of the chest in the next couple of days. Clinically however the patient is doing well, remains on antibiotics, cytology from the pleural effusion came back negative, cultures remain negative, still the differential diagnosis includes malignancy and/or parapneumonic complicated pleural effusion. Patient was seen today on 11/07/2024, patient is doing well, unfortunately patient pulled out her pigtail catheter accidentally, and no more lytic therapy could be given for this patient at this point, the chest x-ray is showing improvement, but her initial CT of the chest raised the possibility of malignancy/lung mass, I will go ahead and recommend repeat CT of the chest now for follow-up on the initially abnormal CT of the chest. Clinically I did not believe the patient had lung mass, I felt she had masslike consolidation. And may have resolved based on the fact that the patient has been receiving lytic therapy for her complicated right-sided pleural effusion. The pleural effusion was negative for malignancy. And it was negative for active infection as the cultures have been negative. Objective - Vital Signs Vital signs: Vital Signs Temp 98.7 F 11/11/24 03:38 Pulse 90 11/11/24 12:06 Resp 18 11/11/24 08:30 BP 96/62 11/11/24 08:30 Pulse Ox 99 11/11/24 08:30 FiO2 100 11/09/24 06:58 Intake & Output 11/10/24 11/11/24 11/11/24 18:59 06:59 18:59 Intake Total 390 118 Output Total 650 380 Balance -260 -380 118 Weight 57.72 kg Intake: IV 30 Invasive Line 2 20 Invasive Line 3 10 Oral 360 118 Output: Chest Tube Drainage 650 280 Chest Tube Right Upper 650 280 Posterior Chest Urine 100 Other: Voiding Method Bedside Commode Bedside Commode Bedside Commode - Exam GENERAL EXAM: Alert, cachectic 69-year-old female, comfortable in no apparent distress. On 4 L nasal cannula HEAD: Normocephalic and atraumatic EYES: Normal reaction of pupils, equal size. NOSE: Clear with pink turbinates. THROAT: No erythema or exudates. NECK: No masses, no JVD. CHEST: No chest wall deformity. Right sided pigtail catheter in place to Pleur- evac to wall suction. LUNGS: Diminished breath sound bilaterally, pigtail catheter has been removed CVS: S1 and S2 normal with no audible murmur, regular rhythm. No extra heart so unds ABDOMEN: No hepatosplenomegaly, active bowel sounds, no guarding or rigidity. SKIN: No rashes CENTRAL NERVOUS SYSTEM: Alert and oriented x 3 no focal deficit EXTREMITIES: No clubbing edema or cyanosis - Labs CBC & Chem 7: 11/09/24 03:42 11/11/24 08:46 Labs: Microbiology - Last 24 Hours (Table) 11/07/24 09:02 Gram Stain - Final Pleural Fluid Body Fluid Culture - Final Streptococcus intermedius 11/09/24 14:20 Nasal Screen MRSA/MSSA - Final Nasal Swab Assessment and Plan Assessment: Impression: Complicated right-sided pleural effusion/exudative, however remains negative for malignancy and negative for infection Status post right-sided thoracentesis followed by pigtail catheter placement and lytic therapy with clinical improvement. Acute hypoxic respiratory failure secondary to above Acute leukocytosis/leukemoid reaction improving, since presentation. Questionable lung mass versus consolidation, I am recommending repeat CT of the chest today instead of waiting longer. Recommendation: Considering the pigtail catheter has been removed, no more lytic therapy could be given Will recommend follow-up CT of the chest now instead of waiting a few more days as the fluid may build up again in the next few days Continue present supportive care measures Continue bronchodilators Continue antibiotics Continue to monitor labs Will continue to follow Time with Patient: Less than 30
--- NOTE | 2024-11-11 15:32 | P.PN ---
Subjective Progress Note Date: 11/11/24 Principal diagnosis: Reason for follow-up is pneumonia/empyema Patient is a 69-year-old female with a past medical history significant for ulcer Raynaud's phenomena and osteoporosis presenting to the hospital for evaluation of right-sided chest pain and cough, patient be diagnosed with right-sided effusion history of empyema and pneumonia prompted this consultation. On today's evaluation that is 11/11/2024,the patient remains to be afebrile, patient is on 3 L nasal cannula supplemental oxygen and breathing slightly comfortably right-sided chest pain has decreased patient chest tube. Fell off no nausea vomiting no abdominal pain or diarrhea. Patient did have a creatinine 0.55 no CBC was done today Vanco trough is 15.8 pleural fluid culture growing Streptococcus intermedius Objective - Vital Signs Vital signs: Vital Signs Temp 98.7 F 11/11/24 03:38 Pulse 90 11/11/24 12:06 Resp 18 11/11/24 08:30 BP 96/62 11/11/24 08:30 Pulse Ox 99 11/11/24 08:30 FiO2 100 11/09/24 06:58 Intake & Output 11/10/24 11/11/24 11/11/24 18:59 06:59 18:59 Intake Total 390 118 Output Total 650 380 Balance -260 -380 118 Weight 57.72 kg Intake: IV 30 Invasive Line 2 20 Invasive Line 3 10 Oral 360 118 Output: Chest Tube Drainage 650 280 Chest Tube Right Upper 650 280 Posterior Chest Urine 100 Other: Voiding Method Bedside Commode Bedside Commode Bedside Commode - Exam GENERAL DESCRIPTION: An elderly female lying in bed in no distress RESPIRATORY SYSTEM: Unlabored breathing , decreased breath sounds at bases HEART: S1 S2 regular rate and rhythm , ABDOMEN: Soft , no tenderness EXTREMITIES: No edema feet - Labs CBC & Chem 7: 11/09/24 03:42 11/11/24 08:46 Labs: Microbiology - Last 24 Hours (Table) 11/07/24 09:02 Gram Stain - Final Pleural Fluid Body Fluid Culture - Final Streptococcus intermedius 11/09/24 14:20 Nasal Screen MRSA/MSSA - Final Nasal Swab Assessment and Plan (1) Sepsis Current Visit: Yes Status: Acute Code(s): A41.9 - SEPSIS, UNSPECIFIED ORGANISM SNOMED Code(s): 92360207 (2) Empyema lung Current Visit: Yes Status: Acute Code(s): J86.9 - PYOTHORAX WITHOUT FISTULA SNOMED Code(s): 40565139 (3) Pneumonia Current Visit: Yes Status: Acute Code(s): J18.9 - PNEUMONIA, UNSPECIFIED ORGANISM SNOMED Code(s): 401344890 Plan: 1patient presented to hospital with sepsis in this patient who did have tachypnea and tachycardia elevated white count as well as elevated lactic acid meeting criteria for SIRS/sepsis source is right-sided pneumonia with a question of postobstructive and a possible component of empyema likely community-acquired pathogen in this patient with no history of recent antibiotic exposure or flulike symptoms 2-patient is afebrile pleural fluid culture currently growing Streptococcus intermedius sensitivities are pending for now we will continue cefepime and Vanco await repeat CT and monitor clinical course closely Dictation was produced using [employer] dictation software. please excuse any grammatical, word or spelling errors. Time with Patient: Less than 30
--- NOTE | 2024-11-11 16:17 | CT ---
EXAMINATION TYPE: CT chest w con DATE OF EXAM: 11/11/2024 3:53 PM COMPARISON: 11/06/2024 CLINICAL INDICATION: Female, 69 years old with history of lung mass?; PHH, Lung mass TECHNIQUE: Multiple axial images were obtained through the chest. Sagittal and coronal reformats were created for review. MIP was performed on a separate workstation. Contrast used:100ml mL of Isovue 300 with IV Contrast (None if empty) Oral contrast used: (None if empty) CT DLP: 199.3 mGycm, Automated exposure control for dose reduction was used. FINDINGS: LUNGS/ PLEURA: Right hydropneumothorax there is a small to moderate pleural effusion component and a small pneumothorax component. Severe centrilobular emphysema changes bilaterally. Consolidation wheeler es in the right lung base with cystic appearance measuring 5 51 x 44 mm. No airspace consolidation. AIRWAY: Patent and unremarkable. HEART: Size within normal limits. No significant coronary artery calcifications. MEDIASTINUM: No gross evidence of adenopathy. Small hiatal hernia with layering debris in the esophag us. Mild circumferential wall thickening of the esophagus series 201 image 36. VASCULATURE: No aortic aneurysm. No filling defect to suggest pulmonary embolus. MUSCULOSKELETAL: Moderate disc degeneration changes are present throughout the thoracolumbar spine se condary to osteophyte formation and facet joint arthropathy. Superior endplate Schmorl's nodes at T10 and T11. SOFT TISSUES/LYMPH NODES: Unremarkable. LOWER NECK: No significant findings. UPPER ABDOMEN: Diffuse low-attenuation to the liver parenchyma. IMPRESSION: 1. Right middle lobe cystic lesion of unknown etiology findings could represent dilated retained sec retions in the airways/bronchitis versus malignancy. Further evaluation with PET/CT may be of benefit . Consider bronchoscopic guided tissue sampling. 2. No filling defect to suggest pulmonary embolus. 3. Right hydropneumothorax there is a small to moderate pleural effusion component and a small pneum othorax component. Chest tube is no longer visualized. 4. Layering debris within the esophagus with some mild wall thickening correlate for esophagitis, es ophageal reflux and esophageal dysmotility. 5. Moderate hiatal hernia present. 6. Hepatic steatosis. 7. Severe emphysema. [facility], , 11/11/2024 4:15 PM
[2024-11-11] MEDS: ALTEPLASE 10 MG in SODIUM CHLORIDE 0.9% 50 ML IRRIGATION ONE (20:08)
[2024-11-11] MEDS: DORNASE ALFA 5 MG in SODIUM CHLORIDE 0.9% 50 ML IRRIGATION ONE (20:09)
[2024-11-12 07:53] LABS: African American GFR (CKD) >90 (>60 ml/min/1.73 sqM); Non-African American GFR(CKD) >90 (>60 ml/min/1.73 sqM)
--- NOTE | 2024-11-12 08:56 | XR ---
EXAMINATION TYPE: XR chest 1V portable DATE OF EXAM: 11/12/2024 6:08 AM COMPARISON: None. CLINICAL INDICATION: Female, 69 years old with history of Right empyema, TECHNIQUE: XR chest 1V portable view(s) obtained. FINDINGS: The heart size is normal. The pulmonary vasculature is normal. There is a moderate right pleural fluid collection. This is increased somewhat from comparison. Adjac ent infiltrate may be some compressive atelectasis. Minimal left pleural effusion is present. IMPRESSION: 1. Moderate right and minimal left pleural fluid collections. This may be increasing on the right. [facility], , 11/12/2024 8:54 AM
[2024-11-12 09:23] LABS: Anion Gap 7 mmol/L; Blood Urea Nitrogen 14 mg/dL (7-17); Carbon Dioxide 17 mmol/L (22-30); Chloride 110 mmol/L (98-107); Glucose 82 mg/dL (74-99); Sodium 134 mmol/L (137-145)
[2024-11-12 09:34] LABS: HCT 28.7 % (37.2-46.3); HGB 10.3 g/dL (12.0-15.0); MCH 30.6 pg (27.0-32.0); MCHC 35.9 g/dL (32.0-37.0); MCV 85.2 fL (80.0-97.0); Mean Platelet Volume 9.4 fL (9.5-12.2); Platelet Count 717 10*3/uL (140-440); RBC 3.37 10*6/uL (4.10-5.20); RDW 14.6 % (11.5-14.5); WBC 24.04 10*3/uL (4.50-10.00)
[2024-11-12 09:36] LABS: Potassium 4.8 mmol/L (3.5-5.1)
--- NOTE | 2024-11-12 09:51 | P.PN ---
Subjective Progress Note Date: 11/12/24 Principal diagnosis: Right basilar masslike consolidation, right loculated effusion, empyema, leukocytosis, hyponatremia. Medical history significant for gastric ulcer, raynaud's, distant remote history of smoking. Status post successful 8 [place] tube placement within the right pleural space completed by interventional radiology. The patient was seen and examined in follow-up today November 12, 2024 at her bedside on the third floor cardiac stepdown unit. She is currently sitting up in bed, is awake, alert, oriented x 3 and is in no acute apparent distress. She denies any complaints of shortness of breath at this time, although is complaining of some discomfort to her right lower back and is also complaining of bouts of nausea. She denies any emesis. Oxygen saturations are 94% on room air and she is achieving 1000 mL on her incentive spirometry with encouragement. Her right pigtail chest tube catheter fell out yesterday unfortunately. Her pleural fluid culture showed positive for Streptococcus intermedius, she is being followed by infectious disease and is currently on cefepime and vancomycin for IV antibiotic coverage. She has been afebrile in the last 24 hours. WBC count today is 24.04. After the right pigtail catheter came out a CT scan of the chest was ordered with contrast which revealed a right middle lobe cystic lesion of unknown etiology, findings could represent dilated retained secretions in the airways/bronchitis versus malignancy, no filling defect to suggest any pulmonary embolus, right hydropneumothorax small to moderate pleural effusion component and a small pneumothorax component, layering debris within the esophagus with some mild wall thickening correlate for esophagitis, esophageal reflux and esophageal dysmotility, hepatic steatosis and severe emphysema. Chest x-ray results reviewed from this morning. Objective - Vital Signs Vital signs: Vital Signs Temp 97.9 F 11/12/24 04:00 Pulse 84 11/12/24 08:53 Resp 20 11/12/24 04:00 BP 96/65 11/12/24 04:00 Pulse Ox 94 L 11/12/24 08:43 FiO2 100 11/09/24 06:58 Intake & Output 11/11/24 11/12/24 11/12/24 18:59 06:59 18:59 Intake Total 118 Output Total 90 Balance 28 Weight 58.6 kg Intake: Oral 118 Output: Chest Tube Drainage 90 Chest Tube Right Upper 90 Posterior Chest Other: Voiding Method Bedside Commode Bedside Commode # Voids 2 1 # Bowel Movements 1 - Exam CONSTITUTIONAL: Appears comfortable, cooperative, no acute distress. RESPIRATORY: Lungs sounds diminished in the bases bilaterally, right greater than left. Respirations symmetrical, nonlabored. Currently on 2 L nasal cannula with oxygen saturation 94%, achieving 1000 mL on her incentive spirometry. Strong cough. CARDIOVASCULAR: S1, S2 present. Regular rate and rhythm. Remote telemetry showing normal sinus rhythm heart rate 65 bpm. Palpable peripheral pulses bilaterally. No edema present. No calf pain or tenderness noted. SCDs present. GASTROINTESTINAL: Abdomen soft, nontender, nondistended. Active bowel sounds present 4 quadrants. Tolerating diet. GENITOURINARY: Continues to void. INTEGUMENTARY: Skin is warm and dry with with no clubbing or cyanosis present. Dressing to her right chest with small amount of thin serous drainage. NEUROLOGIC: Cranial nerves II through XII intact. No focal deficits. MUSKULOSKELETAL: Able to move all extremities, strength equal bilaterally. PSYCHIATRIC: Alert and oriented to person place and time. - Allied health notes Allied health notes reviewed: nursing - Labs CBC & Chem 7: 11/12/24 06:05 11/12/24 06:05 Labs: Abnormal Lab Results - Last 24 Hours (Table) 11/12/24 11/12/24 Range/Units 06:05 06:05 WBC 24.04 H (4.50-10.00) 10*3/uL RBC 3.37 L (4.10-5.20) 10*6/uL Hgb 10.3 L (12.0-15.0) g/dL Hct 28.7 L (37.2-46.3) % Plt Count 717 H (140-440) 10*3/uL MPV 9.4 L (9.5-12.2) fL Immature Gran # 1.59 H (0.00-0.04) 10*3/uL Sodium 134 L (137-145) mmol/L Chloride 110 H (98-107) mmol/L Carbon Dioxide 17 L (22-30) mmol/L Creatinine 0.50 L (0.52-1.04) mg/dL Calcium 8.0 L (8.4-10.2) mg/dL Microbiology - Last 24 Hours (Table) 11/06/24 21:56 Blood Culture - Final Blood 11/07/24 09:02 Gram Stain - Final Pleural Fluid Body Fluid Culture - Final Streptococcus intermedius - Imaging and Cardiology Chest x-ray: report reviewed, image reviewed Assessment and Plan Assessment: Right basilar masslike consolidation, malignancy versus infection Right loculated effusion, complicated, related to infection versus cancer, status post right pigtail catheter placement by interventional radiology, pleural fluid culture showed positive for Streptococcus intermedius Leukocytosis Hyponatremia Chest pain, cough with sputum secondary to above Recent 8 pound weight loss over 6 weeks History of gastric ulcer Raynaud's Plan: Interventional radiology consulted to place right chest pigtail catheter to continue alteplase/dornase instillation. Antibiotics per infectious disease. Pleural fluid culture showed positive for Streptococcus intermedius, she is currently on cefepime and vancomycin for antibiotic coverage. Continue to monitor daily chest x-rays. Send lactic acid now. Wean oxygen as tolerated. Encourage incentive spirometry use 10 times every hour while awake. Increase activity as tolerated. Physical therapy is following. Medical management of other comorbidities per internal medicine, pulmonology, infectious disease. More recommendations to follow based on patient's clinical course. Time with Patient: Less than 30
[2024-11-12 10:23] LABS: Lymphocytes # (M) 2.64 k/uL (1.0-4.8); Neutrophils # (M) 20.19 k/uL (1.3-7.7); Neutrophils % (M) 84 %; Nucleated Red Blood Cells 0 /100 WBC (0-0); Total Cells Counted 100
--- NOTE | 2024-11-12 11:24 | P.PN ---
Subjective Progress Note Date: 11/12/24 Principal diagnosis: Complicated exudative right-sided pleural effusion, differential diagnosis, includes malignancy and/or parapneumonic pleural effusion/empyema 69-year-old female presenting the emergency department last night with a chief complaint of right upper quadrant abdominal pain with radiation to the right back. Ongoing for the last 2 days. Workup in the emergency department including abdominal/pelvis CT which does not show any acute intra-abdominal p rocess. Remarkable for right middle lobe cystic lesion and moderate to large right-sided pleural effusion. Follow-up chest CTA did not show any evidence of pulmonary embolism. Right basilar masslike consolidation measuring 5.4 x 5.8 cm, concerning for possible malignancy. Additional surrounding airspace consolidation, possibly superimposed pneumonia. Large right-sided pleural effusion noted. Severe centrilobular emphysematous changes. Labs remarkable for a CBC with a WBC count of 62.7, hemoglobin 13.4, platelets 801. CMP with a sodium 130, potassium 5, chloride 95, serum bicarb 24, BUN 28, creatinine 0.88, glucose 105. Lactate 2.7 down to 1.1. AST 57, ALT 26, ALP 268. Troponins less than 0.012. NT proBNP 467. Lipase 26. Patient currently being evaluated in emergency department. She is resting comfortably on 2 L/min nasal cannula. SpO2 reading 98%. Again endorses above-mentioned right upper quadrant pain with radiation to the right thoracic level back. Previously, rated 9 out of 10 on a 10 point numerical scale. Started approximately 2 days ago. Denies any nausea, vomiting, change in bowel movements, diarrhea. Does endorse previous congested cough without much sputum production. Denies any significant purulent sputum or hemoptysis. Denies any fevers, chills. No previously diagnosed COPD. She is a former tobacco smoker, quit approximately 9 years ago. Prior to this, she smoked 1 pack, which lasted for almost a month. No family or personal history of lung cancer. No significant unintentional weight loss. No recent outpatient treatments for pneumonias. Her primary care provider is Dr. Muñoz. Given empiric doses of azithromycin, Rocephin, Flagyl, and vancomycin in the ED. Afebrile. Normal saline infusing at 130 mL/h. Nontoxic appearance. H emodynamic stable. The patient is seen today November 08, 2024 in follow-up on the regular medical floor. She is currently sitting up in bed. Awake and alert in no acute distress. Maintaining good O2 saturations in the 90s on 2 L/min per nasal cannula. She did have a right sided pigtail catheter placed yesterday. She also had a thoracentesis performed yesterday. She continues with hazy yellow output. Her pleural fluid was exudate with a protein of 3.6 and an LDH greater than 2500. Procalcitonin was 2.74. She is currently on Unasyn. Chest x-ray continues to show ongoing moderate to large right pleural effusion with underlying atelectasis and/or consolidation. Minimally decreased compared to previous. Pleural fluid cultures are pending. White count 26.2. Hemoglobin 11.2. Platelets 544. Sodium 134. Potassium 3.7. Bicarb 23. BUN 14. Creatinine 0.52. Viral screen was negative for influenza A/B, RSV, COVID. The patient is seen today November 09, 2024 in follow-up on the regular medical floor. She is awake and alert in no acute distress. She did have some issues with desaturations earlier this morning with minimal activity. Chest x-ray shows worsening left-sided pleural effusion which is now moderate. She is currently maintaining good O2 saturations in the mid 90s on 5 L high flow nasal cannula. She is afebrile. Hemodynamically stable. She did have lytics instilled into the pigtail catheter yesterday. A total of 1420 mL have been returned since. Additional lytics will be instilled today per CT service. She continues to work well with the incentive spirometer. She remains on Unasyn. Pleural fluid cultures pending. Cytology pending. White count 38.6. Hemoglobin 11.5. Platelets 605. Seen today on 11/10/2024, patient is feeling better, breathing easier, chest x- ray is not showing much improvement on the right side pleural effusion. Still undergoing lytic therapy. May have to consider repeat CT of the chest in the next couple of days. Clinically however the patient is doing well, remains on antibiotics, cytology from the pleural effusion came back negative, cultures remain negative, still the differential diagnosis includes malignancy and/or parapneumonic complicated pleural effusion. Patient was seen today on 11/11/2024, patient is doing well, unfortunately patient pulled out her pigtail catheter accidentally, and no more lytic therapy could be given for this patient at this point, the chest x-ray is showing improvement, but her initial CT of the chest raised the possibility of malignancy/lung mass, I will go ahead and recommend repeat CT of the chest now for follow-up on the initially abnormal CT of the chest. Clinically I did not believe the patient had lung mass, I felt she had masslike consolidation. And may have resolved based on the fact that the patient has been receiving lytic therapy for her complicated right-sided pleural effusion. The pleural effusion was negative for malignancy. And it was negative for active infection as the cultures have been negative. Patient was seen today on 11/12/2024, patient seems to be comfortable, not in distress, continues to have leukocytosis with WBC count of 24,000, continues to have a right middle lobe cystic lesion, exact etiology is not clear, strongly doubt malignancy I believe is most likely a bulla filled with fluid. Or could represent retained secretions and airway. CT of the chest showed hydropneumothorax, I believe the patient may benefit eventually either from placement of pigtail catheter again or decortication if thoracic surgery is willing. May also require bronchoscopy and biopsy or evaluation of the right middle lobe. At this point in time we are continuing antibiotics, and we need to readdress that pigtail catheter again on Wednesday. Objective - Vital Signs Vital signs: Vital Signs Temp 97.9 F 11/12/24 04:00 Pulse 84 11/12/24 08:53 Resp 22 11/12/24 08:00 BP 95/65 11/12/24 08:00 Pulse Ox 94 L 11/12/24 08:43 FiO2 100 11/09/24 06:58 Intake & Output 11/11/24 11/12/24 11/12/24 18:59 06:59 18:59 Intake Total 118 Output Total 90 Balance 28 Weight 58.6 kg Intake: Oral 118 Output: Chest Tube Drainage 90 Chest Tube Right Upper 90 Posterior Chest Other: Voiding Method Bedside Commode Bedside Commode Bedside Commode # Voids 2 1 # Bowel Movements 1 - Exam GENERAL EXAM: Alert, cachectic 69-year-old female, comfortable in no apparent distress. On 2 L nasal cannula HEAD: Normocephalic and atraumatic EYES: Normal reaction of pupils, equal size. NOSE: Clear with pink turbinates. THROAT: No erythema or exudates. NECK: No masses, no JVD. CHEST: No chest wall deformity. Pigtail catheter was accidentally removed yesterday. LUNGS: Diminished breath sound bilaterally, pigtail catheter has been removed CVS: S1 and S2 normal with no audible murmur, regular rhythm. No extra heart sounds ABDOMEN: No hepatosplenomegaly, active bowel sounds, no guarding or rigidity. SKIN: No rashes CENTRAL NERVOUS SYSTEM: Alert and oriented x 3 no focal deficit EXTREMITIES: No clubbing edema or cyanosis - Labs CBC & Chem 7: 11/12/24 06:05 11/12/24 06:05 Labs: Abnormal Lab Results - Last 24 Hours (Table) 11/12/24 11/12/24 Range/Units 06:05 06:05 WBC 24.04 H (4.50-10.00) 10*3/uL RBC 3.37 L (4.10-5.20) 10*6/uL Hgb 10.3 L (12.0-15.0) g/dL Hct 28.7 L (37.2-46.3) % Plt Count 717 H (140-440) 10*3/uL MPV 9.4 L (9.5-12.2) fL Immature Gran # 1.59 H (0.00-0.04) 10*3/uL Neutrophils # (Manual) 20.19 H (1.3-7.7) k/uL Monocytes # (Manual) 1.20 H (0-1.0) k/uL Sodium 134 L (137-145) mmol/L Chloride 110 H (98-107) mmol/L Carbon Dioxide 17 L (22-30) mmol/L Creatinine 0.50 L (0.52-1.04) mg/dL Calcium 8.0 L (8.4-10.2) mg/dL Microbiology - Last 24 Hours (Table) 11/06/24 21:56 Blood Culture - Final Blood 11/07/24 09:02 Gram Stain - Final Pleural Fluid Body Fluid Culture - Final Streptococcus intermedius Assessment and Plan Assessment: Impression: Complicated right-sided pleural effusion/exudative, pleural effusion is positive for Streptococcus intermedius, being addressed by infectious disease on the case. Status post right-sided thoracentesis followed by pigtail catheter placement and lytic therapy with clinical improvement. Acute hypoxic respiratory failure secondary to above Acute leukocytosis/leukemoid reaction, secondary to complicated, infected pleural effusion/empyema Recommendation: Considering the pigtail catheter has been removed, no more lytic therapy, pigtail catheter may have to be placed again Patient may need placement of pigtail catheter again by interventional radiology or in the worst case scenario patient will need thoracoscopy and decortication. CT of the chest was reviewed and the cystic lesion in the right middle lobe was noted may benefit from bronchoscopy and right middle lobe evaluation next week. Continue present supportive care measures Continue bronchodilators Continue antibiotics Continue to monitor labs Will continue to follow Time with Patient: Less than 30
--- NOTE | 2024-11-12 14:52 | P.PN ---
Subjective Progress Note Date: 11/12/24 Principal diagnosis: Reason for follow-up is pneumonia/empyema Patient is a 69-year-old female with a past medical history significant for ulcer Raynaud's phenomena and osteoporosis presenting to the hospital for evaluation of right-sided chest pain and cough, patient be diagnosed with right-sided effusion history of empyema and pneumonia prompted this consultation. On today's evaluation that is 11/12/2024, the patient continues to be afebrile, the patient is on 2 L nasal oxygen and breathing slightly comfortably, the Pt denies having any chest pain or worsening cough, the patient denies having any abdominal pain no vomiting or any diarrhea has been reported by the nursing staff. Patient white count is down to 24.04, creatinine 0.50 pleural fluid culture with Streptococcus intermedius unfortunately micro unable to do sensitivity Objective - Vital Signs Vital signs: Vital Signs Temp 97.9 F 11/12/24 04:00 Pulse 83 11/12/24 12:31 Resp 18 11/12/24 12:00 BP 96/68 11/12/24 12:00 Pulse Ox 96 11/12/24 12:00 FiO2 100 11/09/24 06:58 Intake & Output 11/11/24 11/12/24 11/12/24 18:59 06:59 18:59 Intake Total 118 Output Total 90 Balance 28 Weight 58.6 kg Intake: Oral 118 Output: Chest Tube Drainage 90 Chest Tube Right Upper 90 Posterior Chest Other: Voiding Method Bedside Commode Bedside Commode Bedside Commode # Voids 2 1 # Bowel Movements 1 - Exam GENERAL DESCRIPTION: An elderly female lying in bed in no distress RESPIRATORY SYSTEM: Unlabored breathing , decreased breath sounds at bases HEART: S1 S2 regular rate and rhythm , ABDOMEN: Soft , no tenderness EXTREMITIES: No edema feet - Labs CBC & Chem 7: 11/12/24 06:05 11/12/24 06:05 Labs: Abnormal Lab Results - Last 24 Hours (Table) 11/12/24 11/12/24 Range/Units 06:05 06:05 WBC 24.04 H (4.50-10.00) 10*3/uL RBC 3.37 L (4.10-5.20) 10*6/uL Hgb 10.3 L (12.0-15.0) g/dL Hct 28.7 L (37.2-46.3) % Plt Count 717 H (140-440) 10*3/uL MPV 9.4 L (9.5-12.2) fL Immature Gran # 1.59 H (0.00-0.04) 10*3/uL Neutrophils # (Manual) 20.19 H (1.3-7.7) k/uL Monocytes # (Manual) 1.20 H (0-1.0) k/uL Sodium 134 L (137-145) mmol/L Chloride 110 H (98-107) mmol/L Carbon Dioxide 17 L (22-30) mmol/L Creatinine 0.50 L (0.52-1.04) mg/dL Calcium 8.0 L (8.4-10.2) mg/dL Microbiology - Last 24 Hours (Table) 11/06/24 21:56 Blood Culture - Final Blood Assessment and Plan (1) Sepsis Current Visit: Yes Status: Acute Code(s): A41.9 - SEPSIS, UNSPECIFIED ORGANISM SNOMED Code(s): 37027818 (2) Empyema lung Current Visit: Yes Status: Acute Code(s): J86.9 - PYOTHORAX WITHOUT FISTULA SNOMED Code(s): 58975910 (3) Pneumonia Current Visit: Yes Status: Acute Code(s): J18.9 - PNEUMONIA, UNSPECIFIED ORGANISM SNOMED Code(s): 930787519 Plan: 1patient presented to hospital with sepsis in this patient who did have tachypnea and tachycardia elevated white count as well as elevated lactic acid meeting criteria for SIRS/sepsis source is right-sided pneumonia with a question of postobstructive and a possible component of empyema likely community-acquired pathogen in this patient with no history of recent antibiotic exposure or flulike symptoms 2-patient is afebrile pleural fluid culture currently growing Streptococcus intermedius micro lab unable to do sensitivity as reported organism not growing 3will discontinue vancomycin and cefepime start the patient on Rocephin 2 g daily and oral Flagyl and monitor clinical course closely Dictation was produced using [employer] software. please excuse any grammatical, word or spelling errors. Time with Patient: Less than 30
[2024-11-12] MEDS: metroNIDAZOLE-NS PMX 500 MG in SALINE 1 100ML.BAG IVPB SCH (17:16)
--- NOTE | 2024-11-13 00:36 | PN ---
PROGRESS NOTE DATE OF SERVICE: 11/11/2024 CHIEF COMPLAINT: Right upper quadrant and chest pain. HISTORY OF PRESENT ILLNESS: This lady is doing fairly well. Her thoracentesis fluid apparently does not reveal any malignant cells. She is not having any particular problems with shortness of breath or pain at this time. There is a cystic lesion in the right lower lobe of the lung. There is also a lesion in the liver. PHYSICAL EXAMINATION: GENERAL: She is slightly pale. CHEST: Demonstrates good breath sounds. CARDIAC: Normal. ABDOMEN: Soft, nontender. IMPRESSION: 1. Right pleural effusion with cystic right lower lung mass or lesion. 2. Lesion in the liver. PLAN: Her workup continues. So far, there is no documented neoplasm, but further studies are pending. The lung lesion will probably require some type of histologic documentation of malignancy or not. MMODL / IJN: [id number] /
--- NOTE | 2024-11-13 00:40 | PN ---
PROGRESS NOTE DATE OF SERVICE: 11/12/2024 CHIEF COMPLAINT: Right lower lobe lung lesion and lesion in the liver. HISTORY OF PRESENT ILLNESS: This lady is stable and doing well without any pain. She awaits further studies on the cystic lesion in the right lower lobe of the lung as well as the mass in the liver. PHYSICAL EXAMINATION: CHEST: Clear. CARDIAC: Normal. ABDOMEN: Soft, nontender. IMPRESSION: 1. Lesion in the right lower lobe of the lung. 2. Lesion in the liver. PLAN: Continue workup and hopefully come up with tissue diagnosis or diagnoses. MMODL / IJN: [id number] /
[2024-11-13] MEDS: PANTOPRAZOLE 40 MG TABLET PO SCH (06:59)
--- NOTE | 2024-11-13 09:03 | XR ---
EXAMINATION TYPE: XR chest 1V portable DATE OF EXAM: 11/13/2024 6:38 AM COMPARISON: 11/12/2024 CLINICAL INDICATION: Female, 69 years old with history of Right empyema, TECHNIQUE: XR chest 1V portable view(s) obtained. FINDINGS: The heart size is normal. The pulmonary vasculature is normal. There is a moderate right pleural effusion is may be mildly increased from comparison. Minimal left p leural effusion is present. IMPRESSION: 1. Moderate right and minimal left pleural effusions, increasing from comparison [facility] Joe Briones, , 11/13/2024 9:01 AM
[2024-11-13 09:45] LABS: African American GFR (CKD) >90 (>60 ml/min/1.73 sqM); Non-African American GFR(CKD) >90 (>60 ml/min/1.73 sqM)
--- NOTE | 2024-11-13 10:06 | P.PN ---
Subjective Progress Note Date: 11/13/24 Principal diagnosis: Right basilar masslike consolidation, right loculated effusion, empyema, leukocytosis, hyponatremia. Medical history significant for gastric ulcer, raynaud's, distant remote history of smoking. Status post successful 8 Cypriot tube placement within the right pleural space completed by interventional radiology. The patient was seen and examined in follow-up today November 13, 2024 at her bedside on the third floor cardiac stepdown unit. She is currently sitting up to the bedside commode, is awake, alert, oriented x 3 and is in no acute apparent distress. She denies any complaints of shortness of breath at this time, she is complaining of some discomfort to her right lower back and is also complaining, no further complaints of nausea at this time. Oxygen saturations are 94% on on 2 L nasal cannula and she is achieving 1000 mL on her incentive spirometry with encouragement. Pleural fluid culture showed positive for Streptococcus intermedius, she is being followed by infectious disease and is currently on Rocephin and Flagyl for IV antibiotic coverage. She has been afebrile in the last 24 hours. Chest x-ray results reviewed from this morning. Objective - Vital Signs Vital signs: Vital Signs Temp 97.5 F L 11/12/24 19:50 Pulse 86 11/13/24 04:55 Resp 18 11/13/24 04:55 BP 97/54 11/13/24 04:55 Pulse Ox 91 L 11/13/24 04:55 FiO2 100 11/09/24 06:58 Intake & Output 11/12/24 11/13/24 11/13/24 18:59 06:59 18:59 Weight 58.5 kg Other: Voiding Method Bedside Commode Bedside Commode # Voids 1 # Bowel Movements 1 - Exam CONSTITUTIONAL: Appears comfortable, cooperative, no acute distress. RESPIRATORY: Lungs sounds diminished in the bases bilaterally, right greater than left. Respirations symmetrical, nonlabored. Currently on 2 L nasal cannula with oxygen saturation 94%, achieving 1000 mL on her incentive spirometry. Strong cough. CARDIOVASCULAR: S1, S2 present. Regular rate and rhythm. Remote telemetry showing sinus tachycardia heart rate 114 bpm. Palpable peripheral pulses bilaterally. No edema present. No calf pain or tenderness noted. SCDs present. GASTROINTESTINAL: Abdomen soft, nontender, nondistended. Active bowel sounds present 4 quadrants. Tolerating diet. Bowel movement this a.m. GENITOURINARY: Continues to void. INTEGUMENTARY: Skin is warm and dry with with no clubbing or cyanosis present. Dressing to her right chest with small amount of thin serous drainage. NEUROLOGIC: Cranial nerves II through XII intact. No focal deficits. MUSKULOSKELETAL: Able to move all extremities, strength equal bilaterally. PSYCHIATRIC: Alert and oriented to person place and time. - Allied health notes Allied health notes reviewed: nursing - Labs CBC & Chem 7: 11/12/24 06:05 11/13/24 09:06 Labs: Abnormal Lab Results - Last 24 Hours (Table) 11/12/24 Range/Units 06:05 Neutrophils # (Manual) 20.19 H (1.3-7.7) k/uL Monocytes # (Manual) 1.20 H (0-1.0) k/uL - Imaging and Cardiology Chest x-ray: report reviewed, image reviewed Assessment and Plan Assessment: Right basilar masslike consolidation, malignancy versus infection Right loculated effusion, complicated, related to infection versus cancer, status post right pigtail catheter placement by interventional radiology, pleural fluid culture showed positive for Streptococcus intermedius Leukocytosis Hyponatremia Chest pain, cough with sputum secondary to above Recent 8 pound weight loss over 6 weeks History of gastric ulcer Raynaud's Plan: Interventional radiology has been consulted to place right chest pigtail catheter to continue alteplase/dornase instillation. Antibiotics per infectious disease. Pleural fluid culture showed positive for Streptococcus intermedius, she is currently on Rocephin and Flagyl for antibiotic coverage. Continue to monitor daily chest x-rays. Wean oxygen as tolerated. Encourage incentive spirometry use 10 times every ho ur while awake. Increase activity as tolerated. Physical therapy is following. Medical management of other comorbidities per internal medicine, pulmonology, infectious disease. More recommendations to follow based on patient's clinical course. Time with Patient: Less than 30
--- NOTE | 2024-11-13 11:02 | P.PN ---
Subjective Progress Note Date: 11/13/24 Principal diagnosis: Complicated exudative right-sided pleural effusion, differential diagnosis, includes malignancy and/or parapneumonic pleural effusion/empyema 69-year-old female presenting the emergency department last night with a chief complaint of right upper quadrant abdominal pain with radiation to the right back. Ongoing for the last 2 days. Workup in the emergency department including abdominal/pelvis CT which does not show any acute intra-abdominal p rocess. Remarkable for right middle lobe cystic lesion and moderate to large right-sided pleural effusion. Follow-up chest CTA did not show any evidence of pulmonary embolism. Right basilar masslike consolidation measuring 5.4 x 5.8 cm, concerning for possible malignancy. Additional surrounding airspace consolidation, possibly superimposed pneumonia. Large right-sided pleural effusion noted. Severe centrilobular emphysematous changes. Labs remarkable for a CBC with a WBC count of 62.7, hemoglobin 13.4, platelets 801. CMP with a sodium 130, potassium 5, chloride 95, serum bicarb 24, BUN 28, creatinine 0.88, glucose 105. Lactate 2.7 down to 1.1. AST 57, ALT 26, ALP 268. Troponins less than 0.012. NT proBNP 467. Lipase 26. Patient currently being evaluated in emergency department. She is resting comfortably on 2 L/min nasal cannula. SpO2 reading 98%. Again endorses above-mentioned right upper quadrant pain with radiation to the right thoracic level back. Previously, rated 9 out of 10 on a 10 point numerical scale. Started approximately 2 days ago. Denies any nausea, vomiting, change in bowel movements, diarrhea. Does endorse previous congested cough without much sputum production. Denies any significant purulent sputum or hemoptysis. Denies any fevers, chills. No previously diagnosed COPD. She is a former tobacco smoker, quit approximately 9 years ago. Prior to this, she smoked 1 pack, which lasted for almost a month. No family or personal history of lung cancer. No significant unintentional weight loss. No recent outpatient treatments for pneumonias. Her primary care provider is Dr. Muñoz. Given empiric doses of azithromycin, Rocephin, Flagyl, and vancomycin in the ED. Afebrile. Normal saline infusing at 130 mL/h. Nontoxic appearance. H emodynamic stable. The patient is seen today November 08, 2024 in follow-up on the regular medical floor. She is currently sitting up in bed. Awake and alert in no acute distress. Maintaining good O2 saturations in the 90s on 2 L/min per nasal cannula. She did have a right sided pigtail catheter placed yesterday. She also had a thoracentesis performed yesterday. She continues with hazy yellow output. Her pleural fluid was exudate with a protein of 3.6 and an LDH greater than 2500. Procalcitonin was 2.74. She is currently on Unasyn. Chest x-ray continues to show ongoing moderate to large right pleural effusion with underlying atelectasis and/or consolidation. Minimally decreased compared to previous. Pleural fluid cultures are pending. White count 26.2. Hemoglobin 11.2. Platelets 544. Sodium 134. Potassium 3.7. Bicarb 23. BUN 14. Creatinine 0.52. Viral screen was negative for influenza A/B, RSV, COVID. The patient is seen today November 09, 2024 in follow-up on the regular medical floor. She is awake and alert in no acute distress. She did have some issues with desaturations earlier this morning with minimal activity. Chest x-ray shows worsening left-sided pleural effusion which is now moderate. She is currently maintaining good O2 saturations in the mid 90s on 5 L high flow nasal cannula. She is afebrile. Hemodynamically stable. She did have lytics instilled into the pigtail catheter yesterday. A total of 1420 mL have been returned since. Additional lytics will be instilled today per CT service. She continues to work well with the incentive spirometer. She remains on Unasyn. Pleural fluid cultures pending. Cytology pending. White count 38.6. Hemoglobin 11.5. Platelets 605. Seen today on 11/10/2024, patient is feeling better, breathing easier, chest x- ray is not showing much improvement on the right side pleural effusion. Still undergoing lytic therapy. May have to consider repeat CT of the chest in the next couple of days. Clinically however the patient is doing well, remains on antibiotics, cytology from the pleural effusion came back negative, cultures remain negative, still the differential diagnosis includes malignancy and/or parapneumonic complicated pleural effusion. Patient was seen today on 11/11/2024, patient is doing well, unfortunately patient pulled out her pigtail catheter accidentally, and no more lytic therapy could be given for this patient at this point, the chest x-ray is showing improvement, but her initial CT of the chest raised the possibility of malignancy/lung mass, I will go ahead and recommend repeat CT of the chest now for follow-up on the initially abnormal CT of the chest. Clinically I did not believe the patient had lung mass, I felt she had masslike consolidation. And may have resolved based on the fact that the patient has been receiving lytic therapy for her complicated right-sided pleural effusion. The pleural effusion was negative for malignancy. And it was negative for active infection as the cultures have been negative. Patient was seen today on 11/12/2024, patient seems to be comfortable, not in distress, continues to have leukocytosis with WBC count of 24,000, continues to have a right middle lobe cystic lesion, exact etiology is not clear, strongly doubt malignancy I believe is most likely a bulla filled with fluid. Or could represent retained secretions and airway. CT of the chest showed hydropneumothorax, I believe the patient may benefit eventually either from placement of pigtail catheter again or decortication if thoracic surgery is willing. May also require bronchoscopy and biopsy or evaluation of the right middle lobe. At this point in time we are continuing antibiotics, and we need to readdress that pigtail catheter again on Wednesday. Patient was seen today on 11/13/2024, patient is comfortable, not in distress, on nasal cannula patient is supposed to have placement of pigtail catheter again tomorrow for lytic therapy. In the meantime remains on antibiotics, continues to have loculated pleural effusion, and the fluid came back positive for Streptococcus intermedius. Continues to have leukocytosis with WC count of 24.0 hemoglobin 10.3. Patient is on 2 L nasal cannula and O2 sat is 91 to 94% Objective - Vital Signs Vital signs: Vital Signs Temp 97.5 F L 11/12/24 19:50 Pulse 86 11/13/24 04:55 Resp 18 11/13/24 04:55 BP 97/54 11/13/24 04:55 Pulse Ox 91 L 11/13/24 04:55 FiO2 100 11/09/24 06:58 Intake & Output 11/12/24 11/13/24 11/13/24 18:59 06:59 18:59 Weight 58.5 kg Other: Voiding Method Bedside Commode Bedside Commode # Voids 1 # Bowel Movements 1 - Exam GENERAL EXAM: Alert, cachectic 69-year-old female, on 2 L nasal cannula HEAD: Normocephalic and atraumatic EYES: Normal reaction of pupils, equal size. NOSE: Clear with pink turbinates. THROAT: No erythema or exudates. NECK: No masses, no JVD. CHEST: No chest wall deformity. Pigtail catheter was accidentally removed yesterday. LUNGS: Diminished breath sound bilaterally, right more so than left. CVS: S1 and S2 normal with no audible murmur, regular rhythm. No extra heart sounds ABDOMEN: No hepatosplenomegaly, active bowel sounds, no guarding or rigidity. SKIN: No rashes CENTRAL NERVOUS SYSTEM: Alert and oriented x 3 no focal deficit EXTREMITIES: No clubbing edema or cyanosis - Labs CBC & Chem 7: 11/12/24 06:05 11/13/24 09:06 Assessment and Plan Assessment: Impression: Complicated right-sided pleural effusion/exudative, pleural effusion is positive for Streptococcus intermedius, remains on antibiotics as per ID on the case Status post right-sided thoracentesis followed by pigtail catheter placement and lytic therapy with clinical improvement. However the pigtail catheter was removed accidentally and she will need another pigtail placement. Acute hypoxic respiratory failure secondary to above Acute leukocytosis/leukemoid reaction, secondary to complicated, infected pleural effusion/empyema Recommendation: Considering the pigtail catheter has been removed, no more lytic therapy, pigtail catheter may have to be placed again tomorrow by interventional radiology If no improvement with pigtail catheter and lytic therapy patient will require decortication CT of the chest was reviewed and the cystic lesion in the right middle lobe, doubt malignancy, although that is not entirely ruled out. Continue present supportive care measures Continue bronchodilators Continue antibiotics Patient is quite ill, not ready for discharge. Will continue to follow Time with Patient: Less than 30
--- NOTE | 2024-11-13 15:29 | P.PN ---
Subjective Progress Note Date: 11/13/24 Principal diagnosis: Reason for follow-up is pneumonia/empyema Patient is a 69-year-old female with a past medical history significant for ulcer Raynaud's phenomena and osteoporosis presenting to the hospital for evaluation of right-sided chest pain and cough, patient be diagnosed with right-sided effusion history of empyema and pneumonia prompted this consultation. On today's evaluation that is 11/13/2024, Patient is afebrile patient is currently on 2 L nasal oxygen and breathing slightly comfortably denies any worsening chest pain no cough no nausea vomiting no abdominal pain complaining of some diarrhea. Patient did have a creatinine 0.55 no CBC was done today Objective - Vital Signs Vital signs: Vital Signs Temp 97.5 F L 11/12/24 19:50 Pulse 76 11/13/24 15:15 Resp 18 11/13/24 14:00 BP 88/59 11/13/24 12:00 Pulse Ox 94 L 11/13/24 12:00 FiO2 100 11/09/24 06:58 Intake & Output 11/12/24 11/13/24 11/13/24 18:59 06:59 18:59 Weight 58.5 kg Other: Voiding Method Bedside Commode Bedside Commode Bedside Commode # Voids 1 # Bowel Movements 1 - Exam GENERAL DESCRIPTION: An elderly female lying in bed in no distress RESPIRATORY SYSTEM: Unlabored breathing , decreased breath sounds at bases HEART: S1 S2 regular rate and rhythm , ABDOMEN: Soft , no tenderness EXTREMITIES: No edema feet - Labs CBC & Chem 7: 11/12/24 06:05 11/13/24 09:06 Assessment and Plan (1) Sepsis Current Visit: Yes Status: Acute Code(s): A41.9 - SEPSIS, UNSPECIFIED ORGANISM SNOMED Code(s): 20746643 (2) Empyema lung Current Visit: Yes Status: Acute Code(s): J86.9 - PYOTHORAX WITHOUT FISTULA SNOMED Code(s): 05297256 (3) Pneumonia Current Visit: Yes Status: Acute Code(s): J18.9 - PNEUMONIA, UNSPECIFIED ORGANISM SNOMED Code(s): 402474679 Plan: 1patient presented to hospital with sepsis in this patient who did have tachypnea and tachycardia elevated white count as well as elevated lactic acid meeting criteria for SIRS/sepsis source is right-sided pneumonia with a question of postobstructive and a possible component of empyema likely community-acquired pathogen in this patient with no history of recent antibiotic exposure or flulike symptoms 2-patient is afebrile pleural fluid culture currently growing Streptococcus intermedius micro lab unable to do sensitivity as reported organism not growing 3patient is currently being treated Rocephin 2 g daily and oral Flagyl, will add Questran for symptomatic relief for diarrhea and monitor clinical course closely Dictation was produced using [employer]ation software. please excuse any grammatical, word or spelling errors. Time with Patient: Less than 30
[2024-11-13] MEDS: CHOLESTYRAMINE RESIN 4 GM PACKET PO SCH (16:37)
[2024-11-13] MEDS: CALCIUM CARBONATE 500 MG CHEWABLE PO PRN (21:15)
[2024-11-14 06:54] LABS: Basophils # (A) 0.09 10*3/uL (0.00-0.10); Basophils % (A) 0.5 %; Eosinophils % (A) 0.5 %; HCT 31.4 % (37.2-46.3); HGB 10.6 g/dL (12.0-15.0); Lymphocytes # (A) 1.75 10*3/uL (0.90-5.00); Lymphocytes % (A) 9.3 %; MCH 29.9 pg (27.0-32.0); MCHC 33.8 g/dL (32.0-37.0); MCV 88.5 fL (80.0-97.0); Mean Platelet Volume 10.4 fL (9.5-12.2); Monocytes # (A) 0.79 10*3/uL (0.20-1.00); Monocytes % (A) 4.2 %; Neutrophils # (A) 15.03 10*3/uL (1.80-7.70); Neutrophils % (A) 80.2 %; Platelet Count 506 10*3/uL (140-440); RBC 3.55 10*6/uL (4.10-5.20); RDW 15.3 % (11.5-14.5); WBC 18.76 10*3/uL (4.50-10.00)
[2024-11-14 06:57] LABS: ALT 18 U/L (4-34); AST 27 U/L (14-36); African American GFR (CKD) >90 (>60 ml/min/1.73 sqM); Albumin 1.7 g/dL (3.5-5.0); Alkaline Phosphatase 109 U/L (38-126); Anion Gap 6 mmol/L; Blood Urea Nitrogen 7 mg/dL (7-17); C Reactive Protein 3.5 mg/dL (<1.0); Calcium 7.6 mg/dL (8.4-10.2); Carbon Dioxide 22 mmol/L (22-30); Chloride 106 mmol/L (98-107); Glucose 70 mg/dL (74-99); Non-African American GFR(CKD) >90 (>60 ml/min/1.73 sqM); Potassium 3.8 mmol/L (3.5-5.1); Sodium 134 mmol/L (137-145); Total Bilirubin 0.3 mg/dL (0.2-1.3); Total Protein 4.3 g/dL (6.3-8.2)
--- NOTE | 2024-11-14 07:27 | XR ---
EXAMINATION TYPE: XR chest 1V portable DATE OF EXAM: 11/14/2024 7:02 AM COMPARISON: 11/13/2024 CLINICAL INDICATION: Female, 69 years old with history of Right empyema, TECHNIQUE: XR chest 1V portable views of the chest are obtained. FINDINGS: Demonstrated are scattered senescent parenchymal change. Right basilar opacity persists unchanged and may reflect underlying effusion with or without atelecta sis, infiltrate or mass. Small left-sided effusion persists. The heart is stable. Hilar and mediastinal structures are within normal limits. Degenerative changes are seen of the dorsal spine. IMPRESSION: 1. Right basilar opacity persists unchanged and may reflect underlying effusion with or without atel ectasis, infiltrate or mass. Small left-sided effusion persists. [facility], , 11/14/2024 7:25 AM
--- NOTE | 2024-11-14 08:44 | P.PN ---
Subjective Progress Note Date: 11/14/24 Principal diagnosis: Right basilar masslike consolidation, right loculated effusion, empyema, leukocytosis, hyponatremia. Medical history significant for gastric ulcer, raynaud's, distant remote history of smoking. Status post successful 8 [place] tube placement within the right pleural space completed by interventional radiology. The patient was seen and examined in follow-up today November 14, 2024 at her bedside on the third floor cardiac stepdown unit. She is currently laying in bed, is awake, alert, oriented x 3 and is in no acute apparent distress. She denies any complaints of pain or shortness of breath at this time. She has been afebrile in the last 24 hours. Oxygen saturations are 96% on 2 L nasal cannula. She is achieving 1000 mL on her incentive spirometry with encouragement. Interventional radiology has been consulted for placement of right pigtail cath eter placement, scheduled time pending. Remote telemetry showing normal sinus rhythm heart rate 91 bpm. Chest x-ray results reviewed. Pleural fluid culture showed positive for Streptococcus intermedius, she is being followed by infectious disease and is currently on Rocephin and Flagyl for IV antibiotic coverage. Objective - Vital Signs Vital signs: Vital Signs Temp 97.6 F 11/14/24 04:00 Pulse 93 11/14/24 08:21 Resp 18 11/14/24 04:00 BP 94/57 11/14/24 04:00 Pulse Ox 94 L 11/14/24 08:14 FiO2 100 11/09/24 06:58 Intake & Output 11/13/24 11/14/24 11/14/24 18:59 06:59 18:59 Intake Total 120 Balance 120 Weight 58.4 kg Intake: Oral 120 Other: Voiding Method Bedside Commode Bedside Commode - Exam CONSTITUTIONAL: Appears comfortable, cooperative, no acute distress. RESPIRATORY: Lungs sounds diminished in the bases bilaterally, right greater than left. Respirations symmetrical, nonlabored. Currently on 2 L nasal cannula with oxygen saturation 96%, achieving 1000 mL on her incentive spirometry. Strong cough. CARDIOVASCULAR: S1, S2 present. Regular rate and rhythm. Remote telemetry showing sinus tachycardia heart rate 91 bpm. Palpable peripheral pulses bilaterally. No edema present. No calf pain or tenderness noted. SCDs present. GASTROINTESTINAL: Abdomen soft, nontender, nondistended. Active bowel sounds present 4 quadrants. Tolerating diet. Bowel movement yesterday November 13, 2024. GENITOURINARY: Continues to void. INTEGUMENTARY: Skin is warm and dry with with no clubbing or cyanosis present. Dressing to her right chest with small amount of thin serous drainage. NEUROLOGIC: Cranial nerves II through XII intact. No focal deficits. MUSKULOSKELETAL: Able to move all extremities, strength equal bilaterally. PSYCHIATRIC: Alert and oriented to person place and time. - Allied health notes Allied health notes reviewed: nursing - Labs CBC & Chem 7: 11/12/24 06:05 11/14/24 05:47 Labs: Abnormal Lab Results - Last 24 Hours (Table) 11/14/24 Range/Units 05:47 Sodium 134 L (137-145) mmol/L Creatinine 0.49 L (0.52-1.04) mg/dL Glucose 70 L (74-99) mg/dL Calcium 7.6 L (8.4-10.2) mg/dL C-Reactive Protein 3.5 H (<1.0) mg/dL Total Protein 4.3 L (6.3-8.2) g/dL Albumin 1.7 L (3.5-5.0) g/dL - Imaging and Cardiology Chest x-ray: report reviewed, image reviewed Assessment and Plan Assessment: Right basilar masslike consolidation, malignancy versus infection Right loculated effusion, complicated, related to infection versus cancer, status post right pigtail catheter placement by interventional radiology, pleural fluid culture showed positive for Streptococcus intermedius Leukocytosis Hyponatremia Chest pain, cough with sputum secondary to above Recent 8 pound weight loss over 6 weeks History of gastric ulcer Raynaud's Plan: Interventional radiology has been consulted to place right chest pigtail catheter to continue alteplase/dornase instillation. Antibiotics per infectious disease. Pleural fluid culture showed positive for Streptococcus intermedius, she is currently on Rocephin and Flagyl for antibiotic coverage. Continue to monitor daily chest x-rays. Wean oxygen as tolerated. Encourage incentive spirometry use 10 times every hour while awake. Increase activity as tolerated. Physical therapy is following. Medical management of other comorbidities per internal medicine, pulmonology, infectious disease. More recommendations to follow based on patient's clinical course. Time with Patient: Less than 30
--- NOTE | 2024-11-14 11:35 | US ---
Ultrasound-guided right chest tube placement DATE OF EXAM: 11/14/2024 CLINICAL HISTORY: Right chest tube has been dislodged and replacement of chest. The procedure was discussed with the patient. The risks, complications, benefits, and alternatives we re discussed and any questions were answered. Informed consent was obtained. The patient was placed seen upright on the ultrasound table and prepped and draped in the usual steri le fashion. All elements of maximal barrier and sterile technique were utilized. Under ultrasound guidance, access into the Right pleural space was obtained, via 8 [place] pigtail drainage catheter system and direct ultrasound guidance. Samples obtained and sent to pathology for analysis.. The patient was stable throughout the procedure and remained stable upon discharge from Department of Radiology. IMPRESSION: 1. Successful ultrasound-guided right chest tube placement.. [facility], , 11/14/2024 11:33 AM
--- NOTE | 2024-11-14 12:55 | P.PN ---
Subjective Progress Note Date: 11/14/24 Principal diagnosis: Sepsis. 69-year-old female presenting the emergency department last night with a chief complaint of right upper quadrant abdominal pain with radiation to the right back. Ongoing for the last 2 days. Workup in the emergency department including abdominal/pelvis CT which does not show any acute intra-abdominal process. Remarkable for right middle lobe cystic lesion and moderate to large right-sided pleural effusion. Follow-up chest CTA did not show any evidence of pulmonary embolism. Right basilar masslike consolidation measuring 5.4 x 5.8 cm, concerning for possible malignancy. Additional surrounding airspace consolidation, possibly superimposed pneumonia. Large right-sided pleural effusion noted. Severe centrilobular emphysematous changes. Labs remarkable for a CBC with a WBC count of 62.7, hemoglobin 13.4, platelets 801. CMP with a sodium 130, potassium 5, chloride 95, serum bicarb 24, BUN 28, creatinine 0.88, glucose 105. Lactate 2.7 down to 1.1. AST 57, ALT 26, ALP 268. Troponins less than 0.012. NT proBNP 467. Lipase 26. Patient currently being evaluated in emergency department. She is resting comfortably on 2 L/min nasal cannula. SpO2 reading 98%. Again endorses above-mentioned right upper quadrant pain with radiation to the right thoracic level back. Previously, rated 9 out of 10 on a 10 point numerical scale. Started approximately 2 days ago. Denies any nausea, vomiting, change in bowel movements, diarrhea. Does endorse previous congested cough without much sputum production. Denies any significant purulent sputum or hemoptysis. Denies any fevers, chills. No previously diagnosed COPD. She is a former tobacco smoker, quit approximately 9 years ago. Prior to this, she smoked 1 pack, which lasted for almost a month. No family or personal history of lung cancer. No significant unintentional weight loss. No recent outpatient treatments for pneumonias. Her primary care provider is Dr. Muñoz. Given empiric doses of azithromycin, Rocephin, Flagyl, and vancomycin in the ED. Afebrile. Normal saline infusing at 130 mL/h. Nontoxic appearance. Hemodynamic stable. The patient is seen today November 08, 2024 in follow-up on the regular medical floor. She is currently sitting up in bed. Awake and alert in no acute distress. Maintaining good O2 saturations in the 90s on 2 L/min per nasal cannula. She did have a right sided pigtail catheter placed yesterday. She als o had a thoracentesis performed yesterday. She continues with hazy yellow output. Her pleural fluid was exudate with a protein of 3.6 and an LDH greater than 2500. Procalcitonin was 2.74. She is currently on Unasyn. Chest x-ray continues to show ongoing moderate to large right pleural effusion with underlying atelectasis and/or consolidation. Minimally decreased compared to previous. Pleural fluid cultures are pending. White count 26.2. Hemoglobin 11.2. Platelets 544. Sodium 134. Potassium 3.7. Bicarb 23. BUN 14. Creatinine 0.52. Viral screen was negative for influenza A/B, RSV, COVID. The patient is seen today November 09, 2024 in follow-up on the regular medical floor. She is awake and alert in no acute distress. She did have some issues with desaturations earlier this morning with minimal activity. Chest x-ray shows worsening left-sided pleural effusion which is now moderate. She is currently maintaining good O2 saturations in the mid 90s on 5 L high flow nasal cannula. She is afebrile. Hemodynamically stable. She did have lytics instilled into the pigtail catheter yesterday. A total of 1420 mL have been returned since. Additional lytics will be instilled today per CT service. She continues to work well with the incentive spirometer. She remains on Unasyn. Pleural fluid cultures pending. Cytology pending. White count 38.6. Hemoglobin 11.5. Platelets 605. Seen today on 11/10/2024, patient is feeling better, breathing easier, chest x- ray is not showing much improvement on the right side pleural effusion. Still undergoing lytic therapy. May have to consider repeat CT of the chest in the next couple of days. Clinically however the patient is doing well, remains on antibiotics, cytology from the pleural effusion came back negative, cultures remain negative, still the differential diagnosis includes malignancy and/or parapneumonic complicated pleural effusion. Patient was seen today on 11/11/2024, patient is doing well, unfortunately angelo fontaine pulled out her pigtail catheter accidentally, and no more lytic therapy could be given for this patient at this point, the chest x-ray is showing improvement, but her initial CT of the chest raised the possibility of malignancy/lung mass, I will go ahead and recommend repeat CT of the chest now for follow-up on the initially abnormal CT of the chest. Clinically I did not believe the patient had lung mass, I felt she had masslike consolidation. And may have resolved based on the fact that the patient has been receiving lytic therapy for her complicated right-sided pleural effusion. The pleural effusion was negative for malignancy. And it was negative for active infection as the cultures have been negative. Patient was seen today on 11/12/2024, patient seems to be comfortable, not in distress, continues to have leukocytosis with WBC count of 24,000, continues to have a right middle lobe cystic lesion, exact etiology is not clear, strongly doubt malignancy I believe is most likely a bulla filled with fluid. Or could represent retained secretions and airway. CT of the chest showed hydropneumothorax, I believe the patient may benefit eventually either from placement of pigtail catheter again or decortication if thoracic surgery is willing. May also require bronchoscopy and biopsy or evaluation of the right middle lobe. At this point in time we are continuing antibiotics, and we need to readdress that pigtail catheter again on Wednesday. Patient was seen today on 11/13/2024, patient is comfortable, not in distress, on nasal cannula patient is supposed to have placement of pigtail catheter again tomorrow for lytic therapy. In the meantime remains on antibiotics, continues to have loculated pleural effusion, and the fluid came back positive for Streptococcus intermedius. Continues to have leukocytosis with WC count of 24.0 hemoglobin 10.3. Patient is on 2 L nasal cannula and O2 sat is 91 to 94% Progress note dated November 14, 2024. 69-year-old female seen today in room 360. She is awake and alert. She is resting comfortably in bed. The patient currently is on Rocephin and Flagyl. She is on 2 L nasal cannula. No IV fluids. The pigtail catheter will be replaced today. She continues to be followed by cardiothoracic surgery. Laboratory data includes a white count of 18.8, hemoglobin 10.6, hematocrit 31.4, and a platelet count of 506,000. Sodium 134, potassium 3.8, chlorides 106, CO2 22, BUN 7, creatinine 0.49. Glucose is 70. Albumin 1.7. Pleural fluid cultures were positive for Streptococcus intermedius. Chest x-ray shows a persistent right basilar opacity/effusion. Objective - Vital Signs Vital signs: Vital Signs Temp 98.2 F 11/14/24 12:00 Pulse 66 11/14/24 12:00 Resp 18 11/14/24 12:00 BP 97/67 11/14/24 12:00 Pulse Ox 95 11/14/24 12:00 FiO2 100 11/09/24 06:58 Intake & Output 11/13/24 11/14/24 11/14/24 18:59 06:59 18:59 Intake Total 120 240 Balance 120 240 Weight 58.4 kg 58.4 kg Intake: Oral 120 240 Other: Voiding Method Bedside Commode Bedside Commode Bedside Commode - Exam No acute distress, oriented 3. HEENT examination is grossly unremarkable. Mucous membranes are moist. No oral lesions. Neck supple. Full range of motion. No adenopathy thyromegaly or neck vein distention. Cardiovascular examination reveals regular rhythm rate. S1-S2 normal. No S3 or S4. No discernible murmur noted. Lungs reveal diminished right basilar lung sounds. Mild scattered rhonchi. No wheezes or crackles. Abdomen soft bowel sounds are heard. No masses or tenderness. Extremities are intact. No cyanosis clubbing or edema. Skin is without rash or lesion. Neurologic examination is brief but nonfocal. - Labs CBC & Chem 7: 11/14/24 05:47 11/14/24 05:47 Labs: Abnormal Lab Results - Last 24 Hours (Table) 11/14/24 11/14/24 Range/Units 05:47 05:47 WBC 18.76 H (4.50-10.00) 10*3/uL RBC 3.55 L (4.10-5.20) 10*6/uL Hgb 10.6 L (12.0-15.0) g/dL Hct 31.4 L (37.2-46.3) % Plt Count 506 H (140-440) 10*3/uL Immature Gran # 1.00 H (0.00-0.04) 10*3/uL Neutrophils # 15.03 H (1.80-7.70) 10*3/uL Sodium 134 L (137-145) mmol/L Creatinine 0.49 L (0.52-1.04) mg/dL Glucose 70 L (74-99) mg/dL Calcium 7.6 L (8.4-10.2) mg/dL C-Reactive Protein 3.5 H (<1.0) mg/dL Total Protein 4.3 L (6.3-8.2) g/dL Albumin 1.7 L (3.5-5.0) g/dL Assessment and Plan Assessment: Complicated right sided pleural effusion/exudate, fluid positive for Strep tococcus intermedius, currently with pigtail catheter in place. Reinsertion of pigtail catheter, November 14, 2024. Status post right-sided thoracentesis. Acute hypoxemic respiratory failure. Acute leukocytosis, secondary to right pleural space infection. Plan: Plan dated November 14, 2024. The patient continues on antibiotics. The patient had a another pigtail catheter placed today by interventional radiology. Currently, the patient is on Flagyl, and Rocephin. She is not receiving any IV fluids. She is on 2 L nasal cannula. Labs, x-rays, and all medications are reviewed. We will continue to follow. The patient is currently not ready for discharge. Prognosis is guarded. Dictation was produced using [employer] software. Please excuse any grammatical, word or spelling errors. Time with Patient: Less than 30
--- NOTE | 2024-11-14 14:30 | P.PN ---
Subjective Progress Note Date: 11/14/24 Principal diagnosis: Reason for follow-up is pneumonia/empyema Patient is a 69-year-old female with a past medical history significant for ulcer Raynaud's phenomena and osteoporosis presenting to the hospital for evaluation of right-sided chest pain and cough, patient be diagnosed with right-sided effusion history of empyema and pneumonia prompted this consultation. On today's evaluation that is 11/14/2024, patient has been afebrile, patient is breathing comfortably and is currently on room air, patient right-sided chest pain is currently controlled denies any worsening cough no nausea vomiting abdominal pain and diarrhea has slowed down. The patient white count is down to 18.76, creatinine 0.49 Objective - Vital Signs Vital signs: Vital Signs Temp 98.2 F 11/14/24 12:00 Pulse 66 11/14/24 12:00 Resp 18 11/14/24 12:00 BP 97/67 11/14/24 12:00 Pulse Ox 95 11/14/24 12:00 FiO2 100 11/09/24 06:58 Intake & Output 11/13/24 11/14/24 11/14/24 18:59 06:59 18:59 Intake Total 120 240 Balance 120 240 Weight 58.4 kg 58.4 kg Intake: Oral 120 240 Other: Voiding Method Bedside Commode Bedside Commode Bedside Commode - Exam GENERAL DESCRIPTION: An elderly female lying in bed in no distress RESPIRATORY SYSTEM: Unlabored breathing , decreased breath sounds at bases HEART: S1 S2 regular rate and rhythm , ABDOMEN: Soft , no tenderness EXTREMITIES: No edema feet - Labs CBC & Chem 7: 11/14/24 05:47 11/14/24 05:47 Labs: Abnormal Lab Results - Last 24 Hours (Table) 11/14/24 11/14/24 Range/Units 05:47 05:47 WBC 18.76 H (4.50-10.00) 10*3/uL RBC 3.55 L (4.10-5.20) 10*6/uL Hgb 10.6 L (12.0-15.0) g/dL Hct 31.4 L (37.2-46.3) % Plt Count 506 H (140-440) 10*3/uL Immature Gran # 1.00 H (0.00-0.04) 10*3/uL Neutrophils # 15.03 H (1.80-7.70) 10*3/uL Sodium 134 L (137-145) mmol/L Creatinine 0.49 L (0.52-1.04) mg/dL Glucose 70 L (74-99) mg/dL Calcium 7.6 L (8.4-10.2) mg/dL C-Reactive Protein 3.5 H (<1.0) mg/dL Total Protein 4.3 L (6.3-8.2) g/dL Albumin 1.7 L (3.5-5.0) g/dL Assessment and Plan (1) Sepsis Current Visit: Yes Status: Acute Code(s): A41.9 - SEPSIS, UNSPECIFIED ORGANISM SNOMED Code(s): 55043364 (2) Empyema lung Current Visit: Yes Status: Acute Code(s): J86.9 - PYOTHORAX WITHOUT FISTULA SNOMED Code(s): 21113362 (3) Pneumonia Current Visit: Yes Status: Acute Code(s): J18.9 - PNEUMONIA, UNSPECIFIED ORGANISM SNOMED Code(s): 286292508 Plan: 1patient presented to hospital with sepsis in this patient who did have tachypnea and tachycardia elevated white count as well as elevated lactic acid meeting criteria for SIRS/sepsis source is right-sided pneumonia with a question of postobstructive and a possible component of empyema likely community-acquired pathogen in this patient with no history of recent antibiotic exposure or flulike symptoms 2-patient is afebrile pleural fluid culture currently growing Streptococcus intermedius micro lab unable to do sensitivity as reported organism not growing 3patient is afebrile white count is trending down she will be treated with Rocephin 2 g daily and oral Flagyl, along with Questran for symptomatic relief for diarrhea and continue supportive care Dictation was produced using [employer] dictation software. please excuse any grammatical, word or spelling errors. Time with Patient: Less than 30
[2024-11-14] MEDS: ALTEPLASE 10 MG in SODIUM CHLORIDE 0.9% 50 ML IRRIGATION ONE (15:00)
[2024-11-14] MEDS: DORNASE ALFA 5 MG in SODIUM CHLORIDE 0.9% 50 ML IRRIGATION ONE (15:00)
--- NOTE | 2024-11-15 07:20 | XR ---
EXAMINATION TYPE: XR chest 1V portable DATE OF EXAM: 11/15/2024 7:06 AM COMPARISON: 11/14/2024 CLINICAL INDICATION: Female, 69 years old with history of Right empyema, TECHNIQUE: XR chest 1V portable views of the chest are obtained. FINDINGS: Demonstrated are scattered senescent parenchymal change. Right basilar pleural catheter is noted in place with diminution in right-sided pleural effusion. The re is residual pleural effusion and atelectasis and/or infiltrate. Tiny left-sided effusion noted. No evidence for pneumothorax. The heart is stable. Hilar and mediastinal structures are within normal limits. Degenerative changes are seen of the dorsal spine. IMPRESSION: 1. Right basilar pleural catheter is noted in place with diminution in right-sided pleural effusion. There is residual pleural effusion and atelectasis and/or infiltrate. Tiny left-sided effusion noted . No evidence for pneumothorax. [facility], , 11/15/2024 7:17 AM
--- NOTE | 2024-11-15 09:09 | P.PN ---
Subjective Progress Note Date: 11/15/24 Principal diagnosis: Right basilar masslike consolidation, right loculated effusion, leukocytosis, hyponatremia. History of gastric ulcer, raynaud's, distant remote history of smoking POD #1 reinsertion of right pigtail catheter by interventional radiology The patient was seen and examined this morning sitting up at the bedside eating breakfast in no acute distress. Patient received fifth dose of lytics yesterday, continues to have significant infectious looking fluid removal into her pigtail catheter, total 1800 mL out since replacement pigtail catheter placed yesterday. Patient appears to be doing well, remains on IV antibiotics per infectious disease. No other new concerns. Objective - Vital Signs Vital signs: Vital Signs Temp 98.1 F 11/15/24 03:36 Pulse 79 11/15/24 03:36 Resp 18 11/15/24 03:36 BP 94/60 11/15/24 03:36 Pulse Ox 96 11/15/24 03:36 FiO2 100 11/09/24 06:58 Intake & Output 11/14/24 11/15/24 11/15/24 18:59 06:59 18:59 Intake Total 480 120 Output Total 1250 480 Balance -770 -360 Weight 58.4 kg 48.3 kg Intake: Oral 480 120 Output: Chest Tube Drainage 1250 480 Chest Tube Right Upper 1250 480 Posterior Chest Other: Voiding Method Bedside Commode Bedside Commode - Exam CONSTITUTIONAL: Appears comfortable, cooperative, no acute distress RESPIRATORY: Lungs sounds diminished in the bases bilaterally. Respirations even, nonlabored. Currently on 2 L nasal cannula with oxygen saturation 96%. Able to achieve 1000 mL on incentive spirometry. Strong cough. CARDIOVASCULAR: S1, S2 present. Regular rate and rhythm. Palpable peripheral pulses bilaterally. No edema present. No calf pain or tenderness noted. SCDs present. GASTROINTESTINAL: Abdomen soft, nontender, nondistended. Active bowel sounds present 4 quadrants. Tolerating diet GENITOURINARY: Continues to void INTEGUMENTARY: Skin is warm and dry with evidence of good perfusion NEUROLOGIC: Cranial nerves II through XII intact MUSKULOSKELETAL: Able to move all extremities, strength equal bilaterally PSYCHIATRIC: Alert and oriented to person place and time INVASIVE LINES AND TUBES: Right sided pigtail present to continuous wall suction, no airleak present, 1800 mL present since insertion of pigtail yesterday - Allied health notes Allied health notes reviewed: nursing - Labs CBC & Chem 7: 11/14/24 05:47 11/14/24 05:47 Labs: Abnormal Lab Results - Last 24 Hours (Table) 11/14/24 Range/Units 05:47 WBC 18.76 H (4.50-10.00) 10*3/uL RBC 3.55 L (4.10-5.20) 10*6/uL Hgb 10.6 L (12.0-15.0) g/dL Hct 31.4 L (37.2-46.3) % Plt Count 506 H (140-440) 10*3/uL Immature Gran # 1.00 H (0.00-0.04) 10*3/uL Neutrophils # 15.03 H (1.80-7.70) 10*3/uL Microbiology - Last 24 Hours (Table) 11/14/24 11:23 Gram Stain - Preliminary Pleural Fluid Body Fluid Culture - Preliminary - Imaging and Cardiology Chest x-ray: report reviewed, image reviewed Assessment and Plan Assessment: Right basilar masslike consolidation, malignancy versus infection Right loculated effusion, complicated, related to infection versus cancer Leukocytosis Hyponatremia Chest pain, cough with sputum secondary to above Recent 8 pound weight loss over 6 weeks History of gastric ulcer Raynaud's Distant remote history of smoking Plan: Continue pigtail catheter on the right, will instill sixth dose of lytics today, allowed to dwell for 1 to 2 hours Continue chest tube to continuous wall suction, may take off suction for patient to ambulate in the hallway Antibiotics per infectious disease Wean oxygen as tolerated Incentive spirometry ordered and should be encouraged Increase activity as tolerated Medical management of other comorbidities per internal medicine, pulmonology, infectious disease More recommendations to follow
[2024-11-15] MEDS: ALTEPLASE 10 MG in SODIUM CHLORIDE 0.9% 50 ML IRRIGATION ONE (10:03)
[2024-11-15] MEDS: DORNASE ALFA 5 MG in SODIUM CHLORIDE 0.9% 50 ML IRRIGATION ONE (10:03)
--- NOTE | 2024-11-15 11:53 | P.PN ---
Subjective Progress Note Date: 11/15/24 Principal diagnosis: Sepsis. 69-year-old female presenting the emergency department last night with a chief complaint of right upper quadrant abdominal pain with radiation to the right back. Ongoing for the last 2 days. Workup in the emergency department including abdominal/pelvis CT which does not show any acute intra-abdominal process. Remarkable for right middle lobe cystic lesion and moderate to large right-sided pleural effusion. Follow-up chest CTA did not show any evidence of pulmonary embolism. Right basilar masslike consolidation measuring 5.4 x 5.8 cm, concerning for possible malignancy. Additional surrounding airspace consolidation, possibly superimposed pneumonia. Large right-sided pleural effusion noted. Severe centrilobular emphysematous changes. Labs remarkable for a CBC with a WBC count of 62.7, hemoglobin 13.4, platelets 801. CMP with a sodium 130, potassium 5, chloride 95, serum bicarb 24, BUN 28, creatinine 0.88, glucose 105. Lactate 2.7 down to 1.1. AST 57, ALT 26, ALP 268. Troponins less than 0.012. NT proBNP 467. Lipase 26. Patient currently being evaluated in emergency department. She is resting comfortably on 2 L/min nasal cannula. SpO2 reading 98%. Again endorses above-mentioned right upper quadrant pain with radiation to the right thoracic level back. Previously, rated 9 out of 10 on a 10 point numerical scale. Started approximately 2 days ago. Denies any nausea, vomiting, change in bowel movements, diarrhea. Does endorse previous congested cough without much sputum production. Denies any significant purulent sputum or hemoptysis. Denies any fevers, chills. No previously diagnosed COPD. She is a former tobacco smoker, quit approximately 9 years ago. Prior to this, she smoked 1 pack, which lasted for almost a month. No family or personal history of lung cancer. No significant unintentional weight loss. No recent outpatient treatments for pneumonias. Her primary care provider is Dr. Muñoz. Given empiric doses of azithromycin, Rocephin, Flagyl, and vancomycin in the ED. Afebrile. Normal saline infusing at 130 mL/h. Nontoxic appearance. Hemodynamic stable. The patient is seen today November 08, 2024 in follow-up on the regular medical floor. She is currently sitting up in bed. Awake and alert in no acute distress. Maintaining good O2 saturations in the 90s on 2 L/min per nasal cannula. She did have a right sided pigtail catheter placed yesterday. She als o had a thoracentesis performed yesterday. She continues with hazy yellow output. Her pleural fluid was exudate with a protein of 3.6 and an LDH greater than 2500. Procalcitonin was 2.74. She is currently on Unasyn. Chest x-ray continues to show ongoing moderate to large right pleural effusion with underlying atelectasis and/or consolidation. Minimally decreased compared to previous. Pleural fluid cultures are pending. White count 26.2. Hemoglobin 11.2. Platelets 544. Sodium 134. Potassium 3.7. Bicarb 23. BUN 14. Creatinine 0.52. Viral screen was negative for influenza A/B, RSV, COVID. The patient is seen today November 09, 2024 in follow-up on the regular medical floor. She is awake and alert in no acute distress. She did have some issues with desaturations earlier this morning with minimal activity. Chest x-ray shows worsening left-sided pleural effusion which is now moderate. She is currently maintaining good O2 saturations in the mid 90s on 5 L high flow nasal cannula. She is afebrile. Hemodynamically stable. She did have lytics instilled into the pigtail catheter yesterday. A total of 1420 mL have been returned since. Additional lytics will be instilled today per CT service. She continues to work well with the incentive spirometer. She remains on Unasyn. Pleural fluid cultures pending. Cytology pending. White count 38.6. Hemoglobin 11.5. Platelets 605. Seen today on 11/10/2024, patient is feeling better, breathing easier, chest x- ray is not showing much improvement on the right side pleural effusion. Still undergoing lytic therapy. May have to consider repeat CT of the chest in the next couple of days. Clinically however the patient is doing well, remains on antibiotics, cytology from the pleural effusion came back negative, cultures remain negative, still the differential diagnosis includes malignancy and/or parapneumonic complicated pleural effusion. Patient was seen today on 11/11/2024, patient is doing well, unfortunately angelo fontaine pulled out her pigtail catheter accidentally, and no more lytic therapy could be given for this patient at this point, the chest x-ray is showing improvement, but her initial CT of the chest raised the possibility of malignancy/lung mass, I will go ahead and recommend repeat CT of the chest now for follow-up on the initially abnormal CT of the chest. Clinically I did not believe the patient had lung mass, I felt she had masslike consolidation. And may have resolved based on the fact that the patient has been receiving lytic therapy for her complicated right-sided pleural effusion. The pleural effusion was negative for malignancy. And it was negative for active infection as the cultures have been negative. Patient was seen today on 11/12/2024, patient seems to be comfortable, not in distress, continues to have leukocytosis with WBC count of 24,000, continues to have a right middle lobe cystic lesion, exact etiology is not clear, strongly doubt malignancy I believe is most likely a bulla filled with fluid. Or could represent retained secretions and airway. CT of the chest showed hydropneumothorax, I believe the patient may benefit eventually either from placement of pigtail catheter again or decortication if thoracic surgery is willing. May also require bronchoscopy and biopsy or evaluation of the right middle lobe. At this point in time we are continuing antibiotics, and we need to readdress that pigtail catheter again on Wednesday. Patient was seen today on 11/13/2024, patient is comfortable, not in distress, on nasal cannula patient is supposed to have placement of pigtail catheter again tomorrow for lytic therapy. In the meantime remains on antibiotics, continues to have loculated pleural effusion, and the fluid came back positive for Streptococcus intermedius. Continues to have leukocytosis with WC count of 24.0 hemoglobin 10.3. Patient is on 2 L nasal cannula and O2 sat is 91 to 94% Progress note dated November 14, 2024. 69-year-old female seen today in room 360. She is awake and alert. She is resting comfortably in bed. The patient currently is on Rocephin and Flagyl. She is on 2 L nasal cannula. No IV fluids. The pigtail catheter will be replaced today. She continues to be followed by cardiothoracic surgery. Laboratory data includes a white count of 18.8, hemoglobin 10.6, hematocrit 31.4, and a platelet count of 506,000. Sodium 134, potassium 3.8, chlorides 106, CO2 22, BUN 7, creatinine 0.49. Glucose is 70. Albumin 1.7. Pleural fluid cultures were positive for Streptococcus intermedius. Chest x-ray shows a persistent right basilar opacity/effusion. Progress note dated November 15, 2024. 69-year-old female seen today in room 360. The patient is resting comfortably in bed. She is currently on 2 L. No IV fluids. She has a right pigtail catheter in place. She is receiving both Rocephin and Flagyl, for streptococcal infection. The patient is receiving tPA, and alpha dornase, as per cardiothoracic surgery. Clinically, she is feeling well. She is awake and alert. No respiratory distress. No new laboratory data today. Chest x-ray shows a right basilar pleural catheter. Right sided pleural effusion has diminished. Objective - Vital Signs Vital signs: Vital Signs Temp 97.5 F L 11/15/24 08:40 Pulse 80 11/15/24 09:10 Resp 17 11/15/24 08:40 BP 92/61 11/15/24 08:40 Pulse Ox 94 L 11/15/24 08:40 FiO2 100 11/09/24 06:58 Intake & Output 11/14/24 11/15/24 11/15/24 18:59 06:59 18:59 Intake Total 480 120 Output Total 1250 480 Balance -770 -360 Weight 58.4 kg 48.3 kg Intake: Oral 480 120 Output: Chest Tube Drainage 1250 480 Chest Tube Right Upper 1250 480 Posterior Chest Other: Voiding Method Bedside Commode Bedside Commode Bedside Commode - Exam No acute distress, oriented 3. HEENT examination is grossly unremarkable. Mucous membranes are moist. No oral lesions. Neck supple. Full range of motion. No adenopathy thyromegaly or neck vein distention. Cardiovascular examination reveals regular rhythm rate. S1-S2 normal. No S3 or S4. No discernible murmur noted. Lungs reveal diminished right basilar lung sounds. Mild scattered rhonchi. No wheezes or crackles. Abdomen soft bowel sounds are heard. No masses or tenderness. Extremities are intact. No cyanosis clubbing or edema. Skin is without rash or lesion. Neurologic examination is brief but nonfocal. - Labs CBC & Chem 7: 11/14/24 05:47 11/14/24 05:47 Labs: Microbiology - Last 24 Hours (Table) 11/14/24 11:23 Gram Stain - Preliminary Pleural Fluid Body Fluid Culture - Preliminary Assessment and Plan Assessment: Complicated right sided pleural effusion/exudate, fluid positive for S treptococcus intermedius, currently with pigtail catheter in place. Reinsertion of pigtail catheter, November 14, 2024. Status post right-sided thoracentesis. Acute hypoxemic respiratory failure. Acute leukocytosis, secondary to right pleural space infection. Plan: Plan dated November 14, 2024. The patient continues on antibiotics. The patient had a another pigtail catheter placed today by interventional radiology. Currently, the patient is on Flagyl, and Rocephin. She is not receiving any IV fluids. She is on 2 L nasal cannula. Labs, x-rays, and all medications are reviewed. We will continue to follow. The patient is currently not ready for discharge. Prognosis is guarded. Dictation was produced using [employer] software. Please excuse any grammatical, word or spelling errors. Plan dated November 15, 2024. The patient is seen today in room 360. She continues on nasal O2 2 L. She is not receiving any additional IV fluids. The patient continues on Rocephin, and Flagyl, for streptococcal infection. The right pigtail catheter is in place. The patient is receiving tPA, and alpha dornase, as per cardiothoracic surgery, to the right pleural space. Labs, x-rays, medications are reviewed. We will continue to follow the patient, and make recommendations where appropriate dictation was produced using [employer] software. Please excuse any grammatical, word or spelling errors. Time with Patient: Less than 30
--- NOTE | 2024-11-16 07:58 | XR ---
EXAMINATION TYPE: XR chest 1V portable DATE OF EXAM: 11/16/2024 6:28 AM COMPARISON: 11/15/2024, 11/15/2019 CLINICAL INDICATION: Female, 69 years old with history of Right-sided effusion, TECHNIQUE: XR chest 1V portable view(s) obtained. FINDINGS: The heart size is normal. The pulmonary vasculature is normal. There is a small to moderate pleural fluid collection on the right. Drainage catheter appears to be p resent. No pneumothorax is evident. Minimal left pleural fluid may be present IMPRESSION: 1. Diminished previous size right lower lobe fluid collection post catheter placement. Findings appea r stable from the most recent comparison. [facility], , 11/16/2024 7:56 AM
--- NOTE | 2024-11-16 09:39 | P.PN ---
Subjective Progress Note Date: 11/16/24 Principal diagnosis: Right basilar masslike consolidation, right loculated effusion, leukocytosis, hyponatremia. History of gastric ulcer, raynaud's, distant remote history of sm oking. POD #2 reinsertion of right pigtail catheter by interventional radiology Patient was seen and examined in follow-up today November 16, 2024 at her bedside on the third floor cardiac stepdown unit. She is currently sitting up to the bedside chair, tolerating her breakfast, is awake, alert, oriented x 3 and is in no acute apparent distress. The patient has received 5 doses of alteplase/dornase lytics for a right empyema. The right pigtail chest tube catheter remains in place to low continuous wall suction -20 cm H2O. No airleak is present. Still draining purulent serosanguineous drainage with 100 mL output in the last 8 hours and 700 mL output in the last 24 hours. Patient states she feels better today, and denies any complaints of shortness of breath or pain at this time. She remains on IV antibiotics managed by infectious disease for a positive pleural fluid culture showing Streptococcus intermedius. Chest x-ray results reviewed. Objective - Vital Signs Vital signs: Vital Signs Temp 98.2 F 11/16/24 07:40 Pulse 96 11/16/24 07:40 Resp 16 11/16/24 07:40 BP 86/59 11/16/24 07:40 Pulse Ox 95 11/16/24 07:40 FiO2 100 11/09/24 06:58 Intake & Output 11/15/24 11/16/24 11/16/24 18:59 06:59 18:59 Intake Total 240 Output Total 700 Balance 240 -700 Weight 59.2 kg Intake: Oral 240 Output: Chest Tube Drainage 700 Chest Tube Right Upper 700 Posterior Chest Other: Voiding Method Bedside Commode Bedside Commode - Exam CONSTITUTIONAL: Appears comfortable, cooperative, no acute distress. RESPIRATORY: Lungs sounds diminished in the bases bilaterally, right greater than left. Respirations symmetrical, nonlabored. Currently on 2 L nasal cannula with oxygen saturation 98%, achieving 1500 mL on her incentive spirometry. Strong cough. CARDIOVASCULAR: S1, S2 present. Regular rate and rhythm. Remote telemetry showing sinus tachycardia heart rate 111 bpm. Palpable peripheral pulses bilaterally. No edema present. No calf pain or tenderness noted. SCDs present. GASTROINTESTINAL: Abdomen soft, nontender, nondistended. Active bowel sounds present 4 quadrants. Tolerating diet. GENITOURINARY: Continues to void. INTEGUMENTARY: Skin is warm and dry with with no clubbing or cyanosis present. Dressing to her right chest with small amount of thin serous drainage. NEUROLOGIC: Cranial nerves II through XII intact. No focal deficits. MUSKULOSKELETAL: Able to move all extremities, strength equal bilaterally. PSYCHIATRIC: Alert and oriented to person place and time. INVASIVE LINES AND TUBES: Right sided pigtail present to continuous wall suction, no airleak present, 700 mL drainage present in the last 24 hours. - Allied health notes Allied health notes reviewed: nursing - Labs CBC & Chem 7: 11/14/24 05:47 11/14/24 05:47 Labs: Microbiology - Last 24 Hours (Table) 11/14/24 11:23 Gram Stain - Preliminary Pleural Fluid Body Fluid Culture - Preliminary - Imaging and Cardiology Chest x-ray: report reviewed, image reviewed Assessment and Plan Assessment: Right basilar masslike consolidation, malignancy versus infection Right loculated effusion, complicated, related to infection versus cancer, status post right pigtail catheter placement by interventional radiology, pleural fluid culture showed positive for Streptococcus intermedius Leukocytosis Hyponatremia Chest pain, cough with sputum secondary to above Recent 8 pound weight loss over 6 weeks History of gastric ulcer Raynaud's Distant remote history of smoking Plan: Continue pigtail catheter on the right, will instill sixth dose of lytics today, allowed to dwell for 1 hour. Continue chest tube to continuous wall suction, may take off suction for patient to ambulate in the hallway. Antibiotics per infectious disease. Wean oxygen as tolerated. Encourage use of incentive spirometry 10 times every hour while awake. Increase activity as tolerated, physical and Occupational Therapy following. Medical management of other comorbidities per internal medicine, pulmonology, and infectious disease. More recommendations to follow based on patient's clinical course. Time with Patient: Greater than 30
--- NOTE | 2024-11-16 10:06 | PN ---
PROGRESS NOTE DATE OF SERVICE: 11/12/2024 CHIEF COMPLAINT: Right-sided pleural effusion with cystic lesion in right lower lobe. HISTORY OF PRESENT ILLNESS: This lady is doing fairly well. Thoracentesis failed to demonstrate any malignant cells. There is a question as to whether or not this is infection. The nurse indicates that Pulmonology may replace the tube in the right chest. PHYSICAL EXAMINATION: CHEST: Demonstrates decreased breath sounds right base. CARDIAC: Exam is normal. ABDOMEN: Soft, nontender. IMPRESSION: 1. Cystic lesion of the right lower lobe with pleural effusion. 2. Hepatic lesion. PLAN: Continue to look into the etiology of these lesions. MMODL / IJN: [id number] /
--- NOTE | 2024-11-16 10:07 | PN ---
PROGRESS NOTE DATE OF SERVICE: 11/15/2024 CHIEF COMPLAINT: Right pleural effusion. HISTORY OF PRESENT ILLNESS: This lady has the pigtail catheter placed in the right chest again. She is still undergoing workup to determine exactly the etiology of her problem. She denies chest pain, shortness of breath or abdominal pain. PHYSICAL EXAMINATION: GENERAL: She remains slightly pale. CHEST: Clear. CARDIAC: Normal. The catheter is in the right chest. IMPRESSION: 1. Right pleural effusion. 2. Cystic lesion in the right lower lobe. 3. Hepatic lesion. 4. Leukocytosis. PLAN: Continue with the drainage from the right chest and wait for further evaluation to determine the etiology of the right lower lobe lesion and possibly as well. MMODL / IJN: [id number] /
--- NOTE | 2024-11-16 10:07 | PN ---
PROGRESS NOTE DATE OF SERVICE: 11/14/2024 CHIEF COMPLAINT: Right pleural effusion and cystic lesion in the right lower lobe. HISTORY OF PRESENT ILLNESS: This lady seems to be feel well. However, the right-sided effusion is redeveloping and the catheter is to be replaced. PHYSICAL EXAMINATION: LUNGS: Breath sounds are diminished at the right base. CARDIAC: Normal. ABDOMEN: Soft, nontender. IMPRESSION: 1. Cystic lesion in the right lower lobe. 2. Right pleural effusion. 3. Possible hepatic mass. 4. Leukocytosis. PLAN: Catheters to be placed back in the right chest and we are encouraging her to increase activity while her workup continues. The etiology of the right lower lobe lesion is still not clear. MMODL / IJN: [id number] /
--- NOTE | 2024-11-16 12:10 | P.PN ---
Subjective Progress Note Date: 11/16/24 Principal diagnosis: Sepsis. 69-year-old female presenting the emergency department last night with a chief complaint of right upper quadrant abdominal pain with radiation to the right back. Ongoing for the last 2 days. Workup in the emergency department including abdominal/pelvis CT which does not show any acute intra-abdominal process. Remarkable for right middle lobe cystic lesion and moderate to large right-sided pleural effusion. Follow-up chest CTA did not show any evidence of pulmonary embolism. Right basilar masslike consolidation measuring 5.4 x 5.8 cm, concerning for possible malignancy. Additional surrounding airspace consolidation, possibly superimposed pneumonia. Large right-sided pleural effusion noted. Severe centrilobular emphysematous changes. Labs remarkable for a CBC with a WBC count of 62.7, hemoglobin 13.4, platelets 801. CMP with a sodium 130, potassium 5, chloride 95, serum bicarb 24, BUN 28, creatinine 0.88, glucose 105. Lactate 2.7 down to 1.1. AST 57, ALT 26, ALP 268. Troponins less than 0.012. NT proBNP 467. Lipase 26. Patient currently being evaluated in emergency department. She is resting comfortably on 2 L/min nasal cannula. SpO2 reading 98%. Again endorses above-mentioned right upper quadrant pain with radiation to the right thoracic level back. Previously, rated 9 out of 10 on a 10 point numerical scale. Started approximately 2 days ago. Denies any nausea, vomiting, change in bowel movements, diarrhea. Does endorse previous congested cough without much sputum production. Denies any significant purulent sputum or hemoptysis. Denies any fevers, chills. No previously diagnosed COPD. She is a former tobacco smoker, quit approximately 9 years ago. Prior to this, she smoked 1 pack, which lasted for almost a month. No family or personal history of lung cancer. No significant unintentional weight loss. No recent outpatient treatments for pneumonias. Her primary care provider is Dr. Muñoz. Given empiric doses of azithromycin, Rocephin, Flagyl, and vancomycin in the ED. Afebrile. Normal saline infusing at 130 mL/h. Nontoxic appearance. Hemodynamic stable. The patient is seen today November 08, 2024 in follow-up on the regular medical floor. She is currently sitting up in bed. Awake and alert in no acute distress. Maintaining good O2 saturations in the 90s on 2 L/min per nasal cannula. She did have a right sided pigtail catheter placed yesterday. She als o had a thoracentesis performed yesterday. She continues with hazy yellow output. Her pleural fluid was exudate with a protein of 3.6 and an LDH greater than 2500. Procalcitonin was 2.74. She is currently on Unasyn. Chest x-ray continues to show ongoing moderate to large right pleural effusion with underlying atelectasis and/or consolidation. Minimally decreased compared to previous. Pleural fluid cultures are pending. White count 26.2. Hemoglobin 11.2. Platelets 544. Sodium 134. Potassium 3.7. Bicarb 23. BUN 14. Creatinine 0.52. Viral screen was negative for influenza A/B, RSV, COVID. The patient is seen today November 09, 2024 in follow-up on the regular medical floor. She is awake and alert in no acute distress. She did have some issues with desaturations earlier this morning with minimal activity. Chest x-ray shows worsening left-sided pleural effusion which is now moderate. She is currently maintaining good O2 saturations in the mid 90s on 5 L high flow nasal cannula. She is afebrile. Hemodynamically stable. She did have lytics instilled into the pigtail catheter yesterday. A total of 1420 mL have been returned since. Additional lytics will be instilled today per CT service. She continues to work well with the incentive spirometer. She remains on Unasyn. Pleural fluid cultures pending. Cytology pending. White count 38.6. Hemoglobin 11.5. Platelets 605. Seen today on 11/10/2024, patient is feeling better, breathing easier, chest x- ray is not showing much improvement on the right side pleural effusion. Still undergoing lytic therapy. May have to consider repeat CT of the chest in the next couple of days. Clinically however the patient is doing well, remains on antibiotics, cytology from the pleural effusion came back negative, cultures remain negative, still the differential diagnosis includes malignancy and/or parapneumonic complicated pleural effusion. Patient was seen today on 11/11/2024, patient is doing well, unfortunately angelo fontaine pulled out her pigtail catheter accidentally, and no more lytic therapy could be given for this patient at this point, the chest x-ray is showing improvement, but her initial CT of the chest raised the possibility of malignancy/lung mass, I will go ahead and recommend repeat CT of the chest now for follow-up on the initially abnormal CT of the chest. Clinically I did not believe the patient had lung mass, I felt she had masslike consolidation. And may have resolved based on the fact that the patient has been receiving lytic therapy for her complicated right-sided pleural effusion. The pleural effusion was negative for malignancy. And it was negative for active infection as the cultures have been negative. Patient was seen today on 11/12/2024, patient seems to be comfortable, not in distress, continues to have leukocytosis with WBC count of 24,000, continues to have a right middle lobe cystic lesion, exact etiology is not clear, strongly doubt malignancy I believe is most likely a bulla filled with fluid. Or could represent retained secretions and airway. CT of the chest showed hydropneumothorax, I believe the patient may benefit eventually either from placement of pigtail catheter again or decortication if thoracic surgery is willing. May also require bronchoscopy and biopsy or evaluation of the right middle lobe. At this point in time we are continuing antibiotics, and we need to readdress that pigtail catheter again on Wednesday. Patient was seen today on 11/13/2024, patient is comfortable, not in distress, on nasal cannula patient is supposed to have placement of pigtail catheter again tomorrow for lytic therapy. In the meantime remains on antibiotics, continues to have loculated pleural effusion, and the fluid came back positive for Streptococcus intermedius. Continues to have leukocytosis with WC count of 24.0 hemoglobin 10.3. Patient is on 2 L nasal cannula and O2 sat is 91 to 94% Progress note dated November 14, 2024. 69-year-old female seen today in room 360. She is awake and alert. She is resting comfortably in bed. The patient currently is on Rocephin and Flagyl. She is on 2 L nasal cannula. No IV fluids. The pigtail catheter will be replaced today. She continues to be followed by cardiothoracic surgery. Laboratory data includes a white count of 18.8, hemoglobin 10.6, hematocrit 31.4, and a platelet count of 506,000. Sodium 134, potassium 3.8, chlorides 106, CO2 22, BUN 7, creatinine 0.49. Glucose is 70. Albumin 1.7. Pleural fluid cultures were positive for Streptococcus intermedius. Chest x-ray shows a persistent right basilar opacity/effusion. Progress note dated November 15, 2024. 69-year-old female seen today in room 360. The patient is resting comfortably in bed. She is currently on 2 L. No IV fluids. She has a right pigtail catheter in place. She is receiving both Rocephin and Flagyl, for streptococcal infection. The patient is receiving tPA, and alpha dornase, as per cardiothoracic surgery. Clinically, she is feeling well. She is awake and alert. No respiratory distress. No new laboratory data today. Chest x-ray shows a right basilar pleural catheter. Right sided pleural effusion has diminished. Progress note dated November 16, 2024. 69-year-old female seen today in room 360. She is sitting up in bed. She is alert and awake. No acute distress. She is continues on nasal O2 at 2 L. She is getting saline at 10 cc an hour. Her right pigtail catheter continues to function. She did receive tPA and alpha dornase today, via cardiothoracic surgery. The patient continues on Rocephin and Flagyl. No new laboratory data today. Chest x-ray today, November 16, shows diminished right lower lobe fluid collection. Drainage catheter, is noted. Objective - Vital Signs Vital signs: Vital Signs Temp 97.6 F 11/16/24 11:07 Pulse 76 11/16/24 11:07 Resp 20 11/16/24 11:07 BP 90/55 11/16/24 11:07 Pulse Ox 94 L 11/16/24 11:07 FiO2 100 11/09/24 06:58 Intake & Output 11/15/24 11/16/24 11/16/24 18:59 06:59 18:59 Intake Total 240 240 Output Total 700 150 Balance 240 -700 90 Weight 59.2 kg Intake: Oral 240 240 Output: Chest Tube Drainage 700 150 Chest Tube Right Upper 700 150 Posterior Chest Other: Voiding Method Bedside Commode Bedside Commode Bedside Commode # Voids 1 - Exam No acute distress, oriented 3. HEENT examination is grossly unremarkable. Mucous membranes are moist. No oral lesions. Neck supple. Full range of motion. No adenopathy thyromegaly or neck vein distention. Cardiovascular examination reveals regular rhythm rate. S1-S2 normal. No S3 or S4. No discernible murmur noted. Lungs reveal diminished right basilar lung sounds. Mild scattered rhonchi. No wheezes or crackles. Abdomen soft bowel sounds are heard. No masses or tenderness. Extremities are intact. No cyanosis clubbing or edema. Skin is without rash or lesion. Neurologic examination is brief but nonfocal. - Labs CBC & Chem 7: 11/14/24 05:47 11/14/24 05:47 Labs: Microbiology - Last 24 Hours (Table) 11/14/24 11:23 Gram Stain - Preliminary Pleural Fluid Body Fluid Culture - Preliminary Assessment and Plan Assessment: Complicated right sided pleural effusion/exudate, fluid positive for Streptococcus intermedius, currently with pigtail catheter in place. Reinsertion of pigtail catheter, November 14, 2024. Status post right-sided thoracentesis. Acute hypoxemic respiratory failure. Acute leukocytosis, secondary to right pleural space infection. Plan: Plan dated November 14, 2024. The patient continues on antibiotics. The patient had a another pigtail catheter placed today by interventional radiology. Currently, the patient is on Flagyl, and Rocephin. She is not receiving any IV fluids. She is on 2 L nasal cannula. Labs, x-rays, and all medications are reviewed. We will continue to follow. The patient is currently not ready for discharge. Prognosis is guarded. Dictation was produced using [employer] software. Please excuse any grammatical, word or spelling errors. Plan dated November 15, 2024. The patient is seen today in room 360. She continues on nasal O2 2 L. She is not receiving any additional IV fluids. The patient continues on Rocephin, and Flagyl, for streptococcal infection. The right pigtail catheter is in place. The patient is receiving tPA, and alpha dornase, as per cardiothoracic surgery, to the right pleural space. Labs, x-rays, medications are reviewed. We will continue to follow the patient, and make recommendations where appropriate dictation was produced using [employer] software. Please excuse any grammatical, word or spelling errors. Plan dated November 16, 2024. The patient is again seen today in room 360. She continues on nasal O2 at 2 L. She is getting saline at 10 cc an hour. The right pigtail catheter is noted to be in place. Her chest x-ray is improved. She did receive tPA and alpha dornase, today, administered by cardiothoracic surgery. She continues on Rocephin and Flagyl. All labs, x-rays, and medications are reviewed. We will continue to follow make recommendations were appropriate. Dictation was produced using [employer] dictation software. Please excuse any grammatical, word or spelling errors. Time with Patient: Less than 30
[2024-11-16] MEDS: ALTEPLASE 10 MG in SODIUM CHLORIDE 0.9% 50 ML IRRIGATION ONE (14:30)
[2024-11-16] MEDS: DORNASE ALFA 5 MG in SODIUM CHLORIDE 0.9% 50 ML IRRIGATION ONE (14:30)
--- NOTE | 2024-11-16 14:51 | P.PN ---
Subjective Progress Note Date: 11/15/24 Principal diagnosis: Reason for follow-up is pneumonia/empyema Patient is a 69-year-old female with a past medical history significant for ulcer Raynaud's phenomena and osteoporosis presenting to the hospital for evaluation of right-sided chest pain and cough, patient be diagnosed with right-sided effusion history of empyema and pneumonia prompted this consultation. On today's evaluation that is 11/15/2024, Patient is afebrile this morning patient denies having any chest pain shortness of breath or any worsening cough, the patient is currently on 2 L nasal cannula oxygen, patient denies any abdominal pain no diarrhea no nausea no vomiting No lab draw today white count was 18.76 as of yesterday Objective - Vital Signs Vital signs: Vital Signs Temp 97.6 F 11/15/24 12:00 Pulse 84 11/15/24 12:00 Resp 18 11/15/24 12:00 BP 87/75 11/15/24 12:00 Pulse Ox 96 11/15/24 12:00 FiO2 100 11/09/24 06:58 Intake & Output 11/14/24 11/15/24 11/15/24 18:59 06:59 18:59 Intake Total 480 120 Output Total 1250 480 Balance -770 -360 Weight 58.4 kg 48.3 kg Intake: Oral 480 120 Output: Chest Tube Drainage 1250 480 Chest Tube Right Upper 1250 480 Posterior Chest Other: Voiding Method Bedside Commode Bedside Commode Bedside Commode - Exam GENERAL DESCRIPTION: An elderly female lying in bed in no distress RESPIRATORY SYSTEM: Unlabored breathing , decreased breath sounds at bases HEART: S1 S2 regular rate and rhythm , ABDOMEN: Soft , no tenderness EXTREMITIES: No edema feet - Labs CBC & Chem 7: 11/14/24 05:47 11/14/24 05:47 Labs: Microbiology - Last 24 Hours (Table) 11/14/24 11:23 Gram Stain - Preliminary Pleural Fluid Body Fluid Culture - Preliminary Assessment and Plan (1) Sepsis Current Visit: Yes Status: Acute Code(s): A41.9 - SEPSIS, UNSPECIFIED ORGANISM SNOMED Code(s): 19752336 (2) Empyema lung Current Visit: Yes Status: Acute Code(s): J86.9 - PYOTHORAX WITHOUT FISTULA SNOMED Code(s): 14236454 (3) Pneumonia Current Visit: Yes Status: Acute Code(s): J18.9 - PNEUMONIA, UNSPECIFIED ORGANISM SNOMED Code(s): 544870752 Plan: 1patient presented to hospital with sepsis in this patient who did have tachypnea and tachycardia elevated white count as well as elevated lactic acid meeting criteria for SIRS/sepsis source is right-sided pneumonia with a question of postobstructive and a possible component of empyema likely community-acquired pathogen in this patient with no history of recent antibiotic exposure or flulike symptoms 2-patient is afebrile pleural fluid culture currently growing Streptococcus intermedius micro lab unable to do sensitivity as reported organism not growing 3patient is afebrile white count is trending down as of yesterday no CBC was done today 4patient to continue with Rocephin 2 g daily and oral Flagyl, and monitor clinical course closely Dictation was produced using [employer] dictation software. please excuse any grammatical, word or spelling errors. Time with Patient: Less than 30
--- NOTE | 2024-11-16 14:52 | P.PN ---
Subjective Progress Note Date: 11/16/24 Principal diagnosis: Reason for follow-up is pneumonia/empyema Patient is a 69-year-old female with a past medical history significant for ulcer Raynaud's phenomena and osteoporosis presenting to the hospital for evaluation of right-sided chest pain and cough, patient be diagnosed with right-sided effusion history of empyema and pneumonia prompted this consultation. On today's evaluation that is 11/16/2024,the patient denies any fever or any chills, patient is breathing comfortably on 2 L nasal cannula oxygen, the patient denies chest pain shortness of breath and cough is decreased intensity, patient denies abdominal pain, no nausea vomiting or diarrhea. No new lab has been obtained today Objective - Vital Signs Vital signs: Vital Signs Temp 97.6 F 11/16/24 11:07 Pulse 76 11/16/24 13:09 Resp 20 11/16/24 11:07 BP 90/55 11/16/24 11:07 Pulse Ox 94 L 11/16/24 11:07 FiO2 100 11/09/24 06:58 Intake & Output 11/15/24 11/16/24 11/16/24 18:59 06:59 18:59 Intake Total 240 240 Output Total 700 150 Balance 240 -700 90 Weight 59.2 kg Intake: Oral 240 240 Output: Chest Tube Drainage 700 150 Chest Tube Right Upper 700 150 Posterior Chest Other: Voiding Method Bedside Commode Bedside Commode Bedside Commode # Voids 1 - Exam GENERAL DESCRIPTION: An elderly female lying in bed in no distress RESPIRATORY SYSTEM: Unlabored breathing , decreased breath sounds at bases HEART: S1 S2 regular rate and rhythm , ABDOMEN: Soft , no tenderness EXTREMITIES: No edema feet - Labs CBC & Chem 7: 11/14/24 05:47 11/14/24 05:47 Labs: Microbiology - Last 24 Hours (Table) 11/14/24 11:23 Gram Stain - Preliminary Pleural Fluid Body Fluid Culture - Preliminary Assessment and Plan (1) Sepsis Current Visit: Yes Status: Acute Code(s): A41.9 - SEPSIS, UNSPECIFIED ORGANISM SNOMED Code(s): 18893101 (2) Empyema lung Current Visit: Yes Status: Acute Code(s): J86.9 - PYOTHORAX WITHOUT FISTULA SNOMED Code(s): 22604227 (3) Pneumonia Current Visit: Yes Status: Acute Code(s): J18.9 - PNEUMONIA, UNSPECIFIED ORGANISM SNOMED Code(s): 831487437 Plan: 1patient presented to hospital with sepsis in this patient who did have tachypnea and tachycardia elevated white count as well as elevated lactic acid meeting criteria for SIRS/sepsis source is right-sided pneumonia with a question of postobstructive and a possible component of empyema likely community-acquired pathogen in this patient with no history of recent antibiotic exposure or flulike symptoms 2-patient is afebrile pleural fluid culture currently growing Streptococcus intermedius micro lab unable to do sensitivity as reported organism not growing 3patient is afebrile white count was down to 18,000 as of 11/14/2024 no CBC was done today 4patient to continue with Rocephin 2 g daily and oral Flagyl, and will repeat a CBC and a BMP with a.m. lab Dictation was produced using [employer] dictation software. please excuse any grammatical, word or spelling errors. Time with Patient: Less than 30
--- NOTE | 2024-11-17 00:21 | PN ---
PROGRESS NOTE DATE OF SERVICE: 11/16/2024 CHIEF COMPLAINT: Abdominal pain and right lower lobe lung mass. HISTORY OF PRESENT ILLNESS: This lady is stable and doing fairly well. Pigtail catheter is still in the right chest. There is still no consensus as to exactly what is going on the right lower lobe. PHYSICAL EXAMINATION: GENERAL: Catheter is present on the right chest. CHEST: Demonstrates lungs to be clear except at the right base. CARDIAC: Normal. ABDOMEN: Soft, nontender. IMPRESSION: 1. Right lower lobe cystic lung mass with pleural effusion. 2. Right hepatic mass. PLAN: Continue with chest tube drainage and workup of her right lower lobe lesion. MMODL / IJN: [id number] /
[2024-11-17 06:48] LABS: Basophils # (A) 0.05 10*3/uL (0.00-0.10); Basophils % (A) 0.3 %; Eosinophils # (A) 0.13 10*3/uL (0.04-0.35); Eosinophils % (A) 0.7 %; HCT 30.8 % (37.2-46.3); HGB 10.5 g/dL (12.0-15.0); Lymphocytes # (A) 2.05 10*3/uL (0.90-5.00); Lymphocytes % (A) 11.7 %; MCH 29.7 pg (27.0-32.0); MCHC 34.1 g/dL (32.0-37.0); Mean Platelet Volume 8.6 fL (9.5-12.2); Monocytes % (A) 6.3 %; Neutrophils # (A) 13.86 10*3/uL (1.80-7.70); Neutrophils % (A) 79.3 %; Platelet Count 703 10*3/uL (140-440); RBC 3.54 10*6/uL (4.10-5.20); RDW 15.7 % (11.5-14.5); WBC 17.48 10*3/uL (4.50-10.00)
[2024-11-17 07:12] LABS: African American GFR (CKD) >90 (>60 ml/min/1.73 sqM); Anion Gap 2 mmol/L; Blood Urea Nitrogen 3 mg/dL (7-17); Carbon Dioxide 23 mmol/L (22-30); Chloride 108 mmol/L (98-107); Glucose 100 mg/dL (74-99); Non-African American GFR(CKD) >90 (>60 ml/min/1.73 sqM); Potassium 4.1 mmol/L (3.5-5.1); Sodium 133 mmol/L (137-145)
--- NOTE | 2024-11-17 07:59 | XR ---
EXAMINATION TYPE: XR chest 1V portable DATE OF EXAM: 11/17/2024 6:43 AM COMPARISON: 11/16/2024 CLINICAL INDICATION: Female, 69 years old with history of Right empyema, TECHNIQUE: XR chest 1V portable view(s) obtained. FINDINGS: The heart size is normal. The pulmonary vasculature is normal. Infiltrates at the right base. A small fluid collection is present at the right costophrenic angle. T his is diminished from comparison. A catheter is present. Minimal left pleural effusion is present IMPRESSION: 1. Diminished size right basilar fluid collection. Some adjacent infiltrate is present. Drainage cath eter is stable in position. 2. Small left pleural effusion [facility], , 11/17/2024 7:57 AM
[2024-11-17] MEDS: CALCIUM GLUCONATE IN NACL 2 GM in SALINE 1 100ML.BAG IVPB ONE (08:41)
--- NOTE | 2024-11-17 09:49 | P.PN ---
Subjective Progress Note Date: 11/17/24 Principal diagnosis: Right basilar masslike consolidation, right loculated effusion, leukocytosis, hyponatremia. History of gastric ulcer, raynaud's, distant remote history of smoking POD #3 reinsertion of right pigtail catheter by interventional radiology The patient was seen and examined this morning sitting up at the bedside eating breakfast in no acute distress. Patient received fifth dose of lytics yesterday, continues to have significant infectious looking fluid removal into her pigtail catheter, total 750 mL out in the last 24 hours. Patient appears to be doing well, remains on IV antibiotics per infectious disease. No other new concerns. Objective - Vital Signs Vital signs: Vital Signs Temp 98.1 F 11/17/24 08:11 Pulse 96 11/17/24 08:11 Resp 16 11/17/24 08:11 BP 86/57 11/17/24 08:11 Pulse Ox 92 L 11/17/24 08:11 FiO2 100 11/09/24 06:58 Intake & Output 11/16/24 11/17/24 11/17/24 18:59 06:59 18:59 Intake Total 480 250 Output Total 700 400 20 Balance -220 -400 230 Weight 59.4 kg Intake: IV 10 Invasive Line 4 10 Oral 480 240 Output: Chest Tube Drainage 700 400 20 Chest Tube Right Upper 700 400 20 Posterior Chest Other: Voiding Method Bedside Commode Bedside Commode Bedside Commode # Voids 1 1 # Bowel Movements 1 - Exam CONSTITUTIONAL: Appears comfortable, cooperative, no acute distress RESPIRATORY: Lungs sounds diminished in the bases bilaterally. Respirations even, nonlabored. Currently on room air with oxygen saturation 96%. Able to achieve 1000 mL on incentive spirometry. Strong cough. CARDIOVASCULAR: S1, S2 present. Regular rate and rhythm. Palpable peripheral pulses bilaterally. No edema present. No calf pain or tenderness noted. SCDs present. GASTROINTESTINAL: Abdomen soft, nontender, nondistended. Active bowel sounds present 4 quadrants. Tolerating diet. Positive bowel movement 11/17 GENITOURINARY: Continues to void INTEGUMENTARY: Skin is warm and dry with evidence of good perfusion NEUROLOGIC: Cranial nerves II through XII intact MUSKULOSKELETAL: Able to move all extremities, strength equal bilaterally PSYCHIATRIC: Alert and oriented to person place and time INVASIVE LINES AND TUBES: Right sided pigtail present to continuous wall suction, no airleak present, 300 mL output overnight, 750 mL in the last 24 hours - Allied health notes Allied health notes reviewed: nursing - Labs CBC & Chem 7: 11/17/24 06:00 11/17/24 06:00 Labs: Abnormal Lab Results - Last 24 Hours (Table) 11/17/24 11/17/24 Range/Units 06:00 06:00 WBC 17.48 H (4.50-10.00) 10*3/uL RBC 3.54 L (4.10-5.20) 10*6/uL Hgb 10.5 L (12.0-15.0) g/dL Hct 30.8 L (37.2-46.3) % Plt Count 703 H (140-440) 10*3/uL MPV 8.6 L (9.5-12.2) fL Immature Gran # 0.29 H (0.00-0.04) 10*3/uL Neutrophils # 13.86 H (1.80-7.70) 10*3/uL Monocytes # 1.10 H (0.20-1.00) 10*3/uL Sodium 133 L (137-145) mmol/L Chloride 108 H (98-107) mmol/L BUN 3 L (7-17) mg/dL Glucose 100 H (74-99) mg/dL Calcium 7.0 L (8.4-10.2) mg/dL Microbiology - Last 24 Hours (Table) 11/14/24 11:23 Gram Stain - Preliminary Pleural Fluid Body Fluid Culture - Preliminary 11/07/24 09:02 Acid Fast Bacilli Smear - Preliminary Pleural Fluid Acid Fast Bacilli Culture - Preliminary - Imaging and Cardiology Chest x-ray: report reviewed, image reviewed Assessment and Plan Assessment: Right basilar masslike consolidation, malignancy versus infection Right loculated effusion, complicated, related to infection versus cancer Leukocytosis Hyponatremia Chest pain, cough with sputum secondary to above Recent 8 pound weight loss over 6 weeks History of gastric ulcer Raynaud's Distant remote history of smoking Plan: Continue pigtail catheter on the right, will instill sixth dose of lytics today, allowed to dwell for 1 to 2 hours Continue chest tube to continuous wall suction, may take off suction for patient to ambulate in the hallway Patient is not a surgical candidate Antibiotics per infectious disease Wean oxygen as tolerated Incentive spirometry ordered and should be encouraged Increase activity as tolerated Medical management of other comorbidities per internal medicine, pulmonology, infectious disease More recommendations to follow
[2024-11-17] MEDS: ALTEPLASE 10 MG in SODIUM CHLORIDE 0.9% 50 ML IRRIGATION ONE (10:18)
[2024-11-17] MEDS: DORNASE ALFA 5 MG in SODIUM CHLORIDE 0.9% 50 ML IRRIGATION ONE (10:19)
--- NOTE | 2024-11-17 11:57 | P.PN ---
Subjective Progress Note Date: 11/17/24 Principal diagnosis: Sepsis. 69-year-old female presenting the emergency department last night with a chief complaint of right upper quadrant abdominal pain with radiation to the right back. Ongoing for the last 2 days. Workup in the emergency department including abdominal/pelvis CT which does not show any acute intra-abdominal process. Remarkable for right middle lobe cystic lesion and moderate to large right-sided pleural effusion. Follow-up chest CTA did not show any evidence of pulmonary embolism. Right basilar masslike consolidation measuring 5.4 x 5.8 cm, concerning for possible malignancy. Additional surrounding airspace consolidation, possibly superimposed pneumonia. Large right-sided pleural effusion noted. Severe centrilobular emphysematous changes. Labs remarkable for a CBC with a WBC count of 62.7, hemoglobin 13.4, platelets 801. CMP with a sodium 130, potassium 5, chloride 95, serum bicarb 24, BUN 28, creatinine 0.88, glucose 105. Lactate 2.7 down to 1.1. AST 57, ALT 26, ALP 268. Troponins less than 0.012. NT proBNP 467. Lipase 26. Patient currently being evaluated in emergency department. She is resting comfortably on 2 L/min nasal cannula. SpO2 reading 98%. Again endorses above-mentioned right upper quadrant pain with radiation to the right thoracic level back. Previously, rated 9 out of 10 on a 10 point numerical scale. Started approximately 2 days ago. Denies any nausea, vomiting, change in bowel movements, diarrhea. Does endorse previous congested cough without much sputum production. Denies any significant purulent sputum or hemoptysis. Denies any fevers, chills. No previously diagnosed COPD. She is a former tobacco smoker, quit approximately 9 years ago. Prior to this, she smoked 1 pack, which lasted for almost a month. No family or personal history of lung cancer. No significant unintentional weight loss. No recent outpatient treatments for pneumonias. Her primary care provider is Dr. Muñoz. Given empiric doses of azithromycin, Rocephin, Flagyl, and vancomycin in the ED. Afebrile. Normal saline infusing at 130 mL/h. Nontoxic appearance. Hemodynamic stable. The patient is seen today November 08, 2024 in follow-up on the regular medical floor. She is currently sitting up in bed. Awake and alert in no acute distress. Maintaining good O2 saturations in the 90s on 2 L/min per nasal cannula. She did have a right sided pigtail catheter placed yesterday. She als o had a thoracentesis performed yesterday. She continues with hazy yellow output. Her pleural fluid was exudate with a protein of 3.6 and an LDH greater than 2500. Procalcitonin was 2.74. She is currently on Unasyn. Chest x-ray continues to show ongoing moderate to large right pleural effusion with underlying atelectasis and/or consolidation. Minimally decreased compared to previous. Pleural fluid cultures are pending. White count 26.2. Hemoglobin 11.2. Platelets 544. Sodium 134. Potassium 3.7. Bicarb 23. BUN 14. Creatinine 0.52. Viral screen was negative for influenza A/B, RSV, COVID. The patient is seen today November 09, 2024 in follow-up on the regular medical floor. She is awake and alert in no acute distress. She did have some issues with desaturations earlier this morning with minimal activity. Chest x-ray shows worsening left-sided pleural effusion which is now moderate. She is currently maintaining good O2 saturations in the mid 90s on 5 L high flow nasal cannula. She is afebrile. Hemodynamically stable. She did have lytics instilled into the pigtail catheter yesterday. A total of 1420 mL have been returned since. Additional lytics will be instilled today per CT service. She continues to work well with the incentive spirometer. She remains on Unasyn. Pleural fluid cultures pending. Cytology pending. White count 38.6. Hemoglobin 11.5. Platelets 605. Seen today on 11/10/2024, patient is feeling better, breathing easier, chest x- ray is not showing much improvement on the right side pleural effusion. Still undergoing lytic therapy. May have to consider repeat CT of the chest in the next couple of days. Clinically however the patient is doing well, remains on antibiotics, cytology from the pleural effusion came back negative, cultures remain negative, still the differential diagnosis includes malignancy and/or parapneumonic complicated pleural effusion. Patient was seen today on 11/11/2024, patient is doing well, unfortunately angelo fontaine pulled out her pigtail catheter accidentally, and no more lytic therapy could be given for this patient at this point, the chest x-ray is showing improvement, but her initial CT of the chest raised the possibility of malignancy/lung mass, I will go ahead and recommend repeat CT of the chest now for follow-up on the initially abnormal CT of the chest. Clinically I did not believe the patient had lung mass, I felt she had masslike consolidation. And may have resolved based on the fact that the patient has been receiving lytic therapy for her complicated right-sided pleural effusion. The pleural effusion was negative for malignancy. And it was negative for active infection as the cultures have been negative. Patient was seen today on 11/12/2024, patient seems to be comfortable, not in distress, continues to have leukocytosis with WBC count of 24,000, continues to have a right middle lobe cystic lesion, exact etiology is not clear, strongly doubt malignancy I believe is most likely a bulla filled with fluid. Or could represent retained secretions and airway. CT of the chest showed hydropneumothorax, I believe the patient may benefit eventually either from placement of pigtail catheter again or decortication if thoracic surgery is willing. May also require bronchoscopy and biopsy or evaluation of the right middle lobe. At this point in time we are continuing antibiotics, and we need to readdress that pigtail catheter again on Wednesday. Patient was seen today on 11/13/2024, patient is comfortable, not in distress, on nasal cannula patient is supposed to have placement of pigtail catheter again tomorrow for lytic therapy. In the meantime remains on antibiotics, continues to have loculated pleural effusion, and the fluid came back positive for Streptococcus intermedius. Continues to have leukocytosis with WC count of 24.0 hemoglobin 10.3. Patient is on 2 L nasal cannula and O2 sat is 91 to 94% Progress note dated November 14, 2024. 69-year-old female seen today in room 360. She is awake and alert. She is resting comfortably in bed. The patient currently is on Rocephin and Flagyl. She is on 2 L nasal cannula. No IV fluids. The pigtail catheter will be replaced today. She continues to be followed by cardiothoracic surgery. Laboratory data includes a white count of 18.8, hemoglobin 10.6, hematocrit 31.4, and a platelet count of 506,000. Sodium 134, potassium 3.8, chlorides 106, CO2 22, BUN 7, creatinine 0.49. Glucose is 70. Albumin 1.7. Pleural fluid cultures were positive for Streptococcus intermedius. Chest x-ray shows a persistent right basilar opacity/effusion. Progress note dated November 15, 2024. 69-year-old female seen today in room 360. The patient is resting comfortably in bed. She is currently on 2 L. No IV fluids. She has a right pigtail catheter in place. She is receiving both Rocephin and Flagyl, for streptococcal infection. The patient is receiving tPA, and alpha dornase, as per cardiothoracic surgery. Clinically, she is feeling well. She is awake and alert. No respiratory distress. No new laboratory data today. Chest x-ray shows a right basilar pleural catheter. Right sided pleural effusion has diminished. Progress note dated November 16, 2024. 69-year-old female seen today in room 360. She is sitting up in bed. She is alert and awake. No acute distress. She is continues on nasal O2 at 2 L. She is getting saline at 10 cc an hour. Her right pigtail catheter continues to function. She did receive tPA and alpha dornase today, via cardiothoracic surgery. The patient continues on Rocephin and Flagyl. No new laboratory data today. Chest x-ray today, November 16, shows diminished right lower lobe fluid collection. Drainage catheter, is noted. Progress note dated November 17, 2024. 69-year-old female seen again in room 360. She sitting in the chair next to the hospital bed. She is on room air. She continues on Rocephin and Flagyl. The patient did receive tPA, and alpha dornase today, administered by cardiothoracic surgery. Her chest x-ray continues to show improvement. Clinically, she is very stable. She has a right sided pigtail catheter in place. White count of 17.5, hemoglobin 10.5, hematocrit 30.8, platelet count 703,000. Sodium 133, potassium 4.1, chlorides 108, CO2 23, BUN 3, creatinine 0.56. Glucose is 100. Calcium is 7.0. Albumin is 1.7. Pleural fluid back from November 07, is positive for Streptococcus species. Chest x-ray shows improving right-sided opacities. Objective - Vital Signs Vital signs: Vital Signs Temp 97.5 F L 11/17/24 11:15 Pulse 84 11/17/24 11:23 Resp 18 11/17/24 11:15 BP 109/67 11/17/24 11:15 Pulse Ox 99 11/17/24 11:15 FiO2 21 11/17/24 11:14 Intake & Output 11/16/24 11/17/24 11/17/24 18:59 06:59 18:59 Intake Total 480 250 Output Total 700 400 20 Balance -220 -400 230 Weight 59.4 kg Intake: IV 10 Invasive Line 4 10 Oral 480 240 Output: Chest Tube Drainage 700 400 20 Chest Tube Right Upper 700 400 20 Posterior Chest Other: Voiding Method Bedside Commode Bedside Commode Bedside Commode # Voids 1 1 # Bowel Movements 1 - Exam No acute distress, oriented 3. HEENT examination is grossly unremarkable. Mucous membranes are moist. No oral lesions. Neck supple. Full range of motion. No adenopathy thyromegaly or neck vein distention. Cardiovascular examination reveals regular rhythm rate. S1-S2 normal. No S3 or S4. No discernible murmur noted. Lungs reveal diminished right basilar lung sounds. Mild scattered rhonchi. No wheezes or crackles. Abdomen soft bowel sounds are heard. No masses or tenderness. Extremities are intact. No cyanosis clubbing or edema. Skin is without rash or lesion. Neurologic examination is brief but nonfocal. - Labs CBC & Chem 7: 11/17/24 06:00 11/17/24 06:00 Labs: Abnormal Lab Results - Last 24 Hours (Table) 11/17/24 11/17/24 Range/Units 06:00 06:00 WBC 17.48 H (4.50-10.00) 10*3/uL RBC 3.54 L (4.10-5.20) 10*6/uL Hgb 10.5 L (12.0-15.0) g/dL Hct 30.8 L (37.2-46.3) % Plt Count 703 H (140-440) 10*3/uL MPV 8.6 L (9.5-12.2) fL Immature Gran # 0.29 H (0.00-0.04) 10*3/uL Neutrophils # 13.86 H (1.80-7.70) 10*3/uL Monocytes # 1.10 H (0.20-1.00) 10*3/uL Sodium 133 L (137-145) mmol/L Chloride 108 H (98-107) mmol/L BUN 3 L (7-17) mg/dL Glucose 100 H (74-99) mg/dL Calcium 7.0 L (8.4-10.2) mg/dL Microbiology - Last 24 Hours (Table) 11/14/24 11:23 Gram Stain - Preliminary Pleural Fluid Body Fluid Culture - Preliminary 11/07/24 09:02 Acid Fast Bacilli Smear - Preliminary Pleural Fluid Acid Fast Bacilli Culture - Preliminary Assessment and Plan Assessment: Complicated right sided pleural effusion/exudate, fluid positive for Streptococcus intermedius, currently with pigtail catheter in place. Reinsertion of pigtail catheter, November 14, 2024. Status post right-sided thoracentesis. Acute hypoxemic respiratory failure. Acute leukocytosis, secondary to right pleural space infection. Plan: Plan dated November 14, 2024. The patient continues on antibiotics. The patient had a another pigtail catheter placed today by interventional radiology. Currently, the patient is on Flagyl, and Rocephin. She is not receiving any IV fluids. She is on 2 L nasal cannula. Labs, x-rays, and all medications are reviewed. We will continue to follow. The patient is currently not ready for discharge. Prognosis is guarded. Dictation was produced using [employer] software. Please excuse any grammatical, word or spelling errors. Plan dated November 15, 2024. The patient is seen today in room 360. She continues on nasal O2 2 L. She is not receiving any additional IV fluids. The patient continues on Rocephin, and Flagyl, for streptococcal infection. The right pigtail catheter is in place. The patient is receiving tPA, and alpha dornase, as per cardiothoracic surgery, to the right pleural space. Labs, x-rays, medications are reviewed. We will continue to follow the patient, and make recommendations where appropriate dictation was produced using [employer] software. Please excuse any grammatical, word or spelling errors. Plan dated November 16, 2024. The patient is again seen today in room 360. She continues on nasal O2 at 2 L. She is getting saline at 10 cc an hour. The right pigtail catheter is noted to be in place. Her chest x-ray is improved. She did receive tPA and alpha dornase, today, administered by cardiothoracic surgery. She continues on Rocephin and Flagyl. All labs, x-rays, and medications are reviewed. We will continue to follow make recommendations were appropriate. Dictation was produced using [employer] software. Please excuse any grammatical, word or spelling errors. Plan dated November 17, 2024. The patient is seen today in room 360. The patient is clinically improved, and radiographically improved. Right pigtail catheter remains in place. The patient remains both on Rocephin and Flagyl. The patient is currently on room air. No additional IV fluids. All labs, x-rays, and medications are reviewed. We will continue to follow the patient, make recommendations were appropriate. Prognosis is guarded. Dictation was produced using [employer] software. Please excuse any grammatical, word or spelling errors. Time with Patient: Less than 30
--- NOTE | 2024-11-17 15:27 | P.PN ---
Subjective Progress Note Date: 11/17/24 Principal diagnosis: Reason for follow-up is pneumonia/empyema Patient is a 69-year-old female with a past medical history significant for ulcer Raynaud's phenomena and osteoporosis presenting to the hospital for evaluation of right-sided chest pain and cough, patient be diagnosed with right-sided effusion history of empyema and pneumonia prompted this consultation. On today's evaluation that is 11/17/2024,the patient remains to be afebrile, patient is on room air not requiring supplemental oxygen and denies any shortness of breath no chest pain and cough is decreased in intensity.Patient denies having any nausea or vomiting, no abdominal pain and no diarrhea. Patient white count 17.48 creatinine 0.56 Objective - Vital Signs Vital signs: Vital Signs Temp 97.5 F L 11/17/24 11:15 Pulse 84 11/17/24 11:23 Resp 18 11/17/24 11:15 BP 109/67 11/17/24 11:15 Pulse Ox 99 11/17/24 11:15 FiO2 21 11/17/24 11:14 Intake & Output 11/16/24 11/17/24 11/17/24 18:59 06:59 18:59 Intake Total 480 250 Output Total 700 400 20 Balance -220 -400 230 Weight 59.4 kg Intake: IV 10 Invasive Line 4 10 Oral 480 240 Output: Chest Tube Drainage 700 400 20 Chest Tube Right Upper 700 400 20 Posterior Chest Other: Voiding Method Bedside Commode Bedside Commode Bedside Commode # Voids 1 1 # Bowel Movements 1 - Exam GENERAL DESCRIPTION: An elderly female lying in bed in no distress RESPIRATORY SYSTEM: Unlabored breathing , decreased breath sounds at bases HEART: S1 S2 regular rate and rhythm , ABDOMEN: Soft , no tenderness EXTREMITIES: No edema feet - Labs CBC & Chem 7: 11/17/24 06:00 11/17/24 06:00 Labs: Abnormal Lab Results - Last 24 Hours (Table) 11/17/24 11/17/24 Range/Units 06:00 06:00 WBC 17.48 H (4.50-10.00) 10*3/uL RBC 3.54 L (4.10-5.20) 10*6/uL Hgb 10.5 L (12.0-15.0) g/dL Hct 30.8 L (37.2-46.3) % Plt Count 703 H (140-440) 10*3/uL MPV 8.6 L (9.5-12.2) fL Immature Gran # 0.29 H (0.00-0.04) 10*3/uL Neutrophils # 13.86 H (1.80-7.70) 10*3/uL Monocytes # 1.10 H (0.20-1.00) 10*3/uL Sodium 133 L (137-145) mmol/L Chloride 108 H (98-107) mmol/L BUN 3 L (7-17) mg/dL Glucose 100 H (74-99) mg/dL Calcium 7.0 L (8.4-10.2) mg/dL Microbiology - Last 24 Hours (Table) 11/14/24 11:23 Gram Stain - Preliminary Pleural Fluid Body Fluid Culture - Preliminary 11/07/24 09:02 Acid Fast Bacilli Smear - Preliminary Pleural Fluid Acid Fast Bacilli Culture - Preliminary Assessment and Plan (1) Sepsis Current Visit: Yes Status: Acute Code(s): A41.9 - SEPSIS, UNSPECIFIED ORGANISM SNOMED Code(s): 32516331 (2) Empyema lung Current Visit: Yes Status: Acute Code(s): J86.9 - PYOTHORAX WITHOUT FISTULA SNOMED Code(s): 84259927 (3) Pneumonia Current Visit: Yes Status: Acute Code(s): J18.9 - PNEUMONIA, UNSPECIFIED ORGANISM SNOMED Code(s): 307689870 Plan: 1patient presented to hospital with sepsis in this patient who did have tachypnea and tachycardia elevated white count as well as elevated lactic acid meeting criteria for SIRS/sepsis source is right-sided pneumonia with a question of postobstructive and a possible component of empyema likely community-acquired pathogen in this patient with no history of recent antibiotic exposure or flulike symptoms 2-patient is afebrile pleural fluid culture currently growing Streptococcus intermedius micro lab unable to do sensitivity as reported organism not growing 3patient is afebrile white count was down to 17.8 today 4patient currently being treated with Rocephin 2 g daily and oral Flagyl, and will monitor clinical course closely Dictation was produced using [employer] dictation software. please excuse any grammatical, word or spelling errors. Time with Patient: Less than 30
[2024-11-17] MEDS ORDERED: ZINC OXIDE PASTE (Z-GUARD) 1 APPLIC TOPICAL PRN (18:10)
--- NOTE | 2024-11-17 19:50 | P.PN ---
Subjective Progress Note Date: 11/17/24 Patient evaluated today on the cardiac unit. Currently sitting up in the chair. Pigtail catheter in place. Atrium changed today. Chest xray today reveals diminished size right basilar fluid collection. Some adjacent infiltrate in present. Drainage catheter is stable in position. Small left pleural effusion. Reporting worsening lower extremity edema. Labs today reveal WBC 17.48, hgb 10.5, sodium 133, potassium 4.1, BUN 3, creatinine 0.56. Review of Systems Constitutional: Denied any fatigue denied any fever. Cardio vascular: denied any chest pain, palpitations Gastrointestinal: denied any nausea, vomiting, diarrhea Pulmonary: Denied any shortness of breath cough Neurologic denied any new focal deficits All inpatient medications were reviewed and appropriate changes in these medications as dictated in the interval history and assessment and plan. PHYSICAL EXAMINATION: GENERAL: The patient is alert and oriented x3, not in any acute distress. Well developed, well nourished. HEENT: Pupils are round and equally reacting to light. EOMI. No scleral icterus. No conjunctival pallor. Normocephalic, atraumatic. No pharyngeal erythema. No thyromegaly. CARDIOVASCULAR: S1 and S2 present. No murmurs, rubs, or gallops. PULMONARY: Chest is clear to auscultation, no wheezing or crackles. Pigtail catheter in place right chest wall. ABDOMEN: Soft, nontender, nondistended, normoactive bowel sounds. No palpable organomegaly. MUSCULOSKELETAL: No joint swelling or deformity. EXTREMITIES: No cyanosis, clubbing, or pedal edema. Mild lower extremity edema. NEUROLOGICAL: Gross neurological examination did not reveal any focal deficits. SKIN: No rashes. Assessment Right sided empyema status post pigtail catheter placement Loculated pleural effusion s/p thoracentesis with cultures growing streptococcus intermedius Acute hypoxemic respiratory failure from above Leukocytosis Hyponatremia hypovolemic Peripheral edema Hx Reynauds phenomenon Former smoker GI prophylaxis Full Code Plan Continue IV ceftriaxone, IV metronidazole S/P dornase and alteplase infusion CT surgery following Pulmonology following ID following Recommend to DAVEY wrap lower extremities Start gentle hydration normal saline at 50 mls/hr AM chest xray monitor electrolytes and renal function PT/OT consultation The impression and plan of care has been dictated by Nitza Davis, Nurse Practitioner as directed. Dr. Riri MD I have performed a history and physical examination and medical decision making of this patient, discussed the same with the dictator, and agree with the dictators assessment and plan as written, documented as a scribe. Based on total visit time, I have performed more than 50% of this visit. Objective - Vital Signs Vital signs: Vital Signs Temp 98.0 F 11/17/24 16:18 Pulse 114 H 11/17/24 16:18 Resp 16 11/17/24 16:18 BP 91/59 11/17/24 16:18 Pulse Ox 94 L 11/17/24 16:26 FiO2 21 11/17/24 11:14 Intake & Output 11/17/24 11/17/24 11/18/24 06:59 18:59 06:59 Intake Total 608 Output Total 400 202 Balance -400 406 Weight 59.4 kg Intake: IV 10 Invasive Line 4 10 Oral 598 Output: Chest Tube Drainage 400 202 Chest Tube Right Upper 400 202 Posterior Chest Other: Voiding Method Bedside Commode Bedside Commode # Voids 1 # Bowel Movements 1 - Labs CBC & Chem 7: 11/17/24 06:00 11/17/24 06:00 Labs: Abnormal Lab Results - Last 24 Hours (Table) 11/17/24 11/17/24 Range/Units 06:00 06:00 WBC 17.48 H (4.50-10.00) 10*3/uL RBC 3.54 L (4.10-5.20) 10*6/uL Hgb 10.5 L (12.0-15.0) g/dL Hct 30.8 L (37.2-46.3) % Plt Count 703 H (140-440) 10*3/uL MPV 8.6 L (9.5-12.2) fL Immature Gran # 0.29 H (0.00-0.04) 10*3/uL Neutrophils # 13.86 H (1.80-7.70) 10*3/uL Monocytes # 1.10 H (0.20-1.00) 10*3/uL Sodium 133 L (137-145) mmol/L Chloride 108 H (98-107) mmol/L BUN 3 L (7-17) mg/dL Glucose 100 H (74-99) mg/dL Calcium 7.0 L (8.4-10.2) mg/dL Microbiology - Last 24 Hours (Table) 11/07/24 09:02 Fungal Culture - Preliminary Lung - Right 11/14/24 11:23 Gram Stain - Preliminary Pleural Fluid Body Fluid Culture - Preliminary 11/07/24 09:02 Acid Fast Bacilli Smear - Preliminary Pleural Fluid Acid Fast Bacilli Culture - Preliminary Assessment and Plan Time with Patient: Less than 30
[2024-11-17] MEDS: SODIUM CHLORIDE 0.9% 1,000 ML IV SCH (20:19)
--- NOTE | 2024-11-18 06:54 | XR ---
EXAMINATION TYPE: XR chest 1V portable DATE OF EXAM: 11/18/2024 4:14 AM COMPARISON: Multiple radiographs, with the most recent on 11/17/2024, CT chest 11/11/2024 TECHNIQUE: XR chest 1V portable Portable AP radiograph of the chest. CLINICAL INDICATION:Female, 69 years old with history of Effusion; FINDINGS: Lungs/Pleura: Similar small to moderate size right pleural effusion with pleural pigtail catheter in stable position along the medial aspect of the right mid lung near the hilum. Similar right mid to lo wer lung patchy airspace opacities. No pneumothorax. Pulmonary vascularity: Unremarkable. Heart/mediastinum: Cardiomediastinal silhouette is unremarkable. Atherosclerotic calcifications are seen in the aorta. Musculoskeletal: No acute osseous pathology. IMPRESSION: Overall similar examination with small to moderate size right pleural effusion with adjacent opacitie s likely representing atelectasis. Drainage catheter in stable position. [facility], , 11/18/2024 6:51 AM
--- NOTE | 2024-11-18 08:37 | P.PN ---
Subjective Progress Note Date: 11/18/24 Principal diagnosis: Right basilar masslike consolidation, right loculated effusion, leukocytosis, hyponatremia. History of gastric ulcer, raynaud's, distant remote history of smoking POD #4 reinsertion of right pigtail catheter by interventional radiology The patient was seen and examined this morning sitting up at the bedside eating breakfast in no acute distress. Patient received sixth dose of lytics yesterday, continues to have infectious looking fluid removal into her pigtail catheter, total 450 mL out in the last 24 hours. Patient appears to be doing well, remains on IV antibiotics per infectious disease. No other new concerns. Objective - Vital Signs Vital signs: Vital Signs Temp 97.2 F L 11/17/24 20:00 Pulse 114 H 11/18/24 03:33 Resp 16 11/18/24 03:33 BP 98/64 11/18/24 03:33 Pulse Ox 90 L 11/18/24 03:33 FiO2 21 11/17/24 11:14 Intake & Output 11/17/24 11/18/24 11/18/24 18:59 06:59 18:59 Intake Total 608 540 Output Total 202 140 Balance 406 400 Weight 60.6 kg Intake: IV 10 Invasive Line 4 10 Oral 598 540 Output: Chest Tube Drainage 202 140 Chest Tube Right Upper 202 140 Posterior Chest Other: Voiding Method Bedside Commode Bedside Commode # Voids 1 1 # Bowel Movements 1 - Exam CONSTITUTIONAL: Appears comfortable, cooperative, no acute distress RESPIRATORY: Lungs sounds diminished in the bases bilaterally. Respirations even, nonlabored. Currently on room air with oxygen saturation 94%. Able to achieve 1000 mL on incentive spirometry. Strong cough. CARDIOVASCULAR: S1, S2 present. Regular rate and rhythm. Palpable peripheral pulses bilaterally. Bilateral lower extremity edema present. No calf pain or tenderness noted. SCDs present. GASTROINTESTINAL: Abdomen soft, nontender, nondistended. Active bowel sounds present 4 quadrants. Tolerating diet. Positive bowel movement 11/17 GENITOURINARY: Continues to void INTEGUMENTARY: Skin is warm and dry with evidence of good perfusion NEUROLOGIC: Cranial nerves II through XII intact MUSKULOSKELETAL: Able to move all extremities, strength equal bilaterally PSYCHIATRIC: Alert and oriented to person place and time INVASIVE LINES AND TUBES: Right sided pigtail present to continuous wall suction, no airleak present, 120 mL output overnight, 450 mL in the last 24 hours - Allied health notes Allied health notes reviewed: nursing - Labs CBC & Chem 7: 11/17/24 06:00 11/17/24 06:00 Labs: Microbiology - Last 24 Hours (Table) 11/07/24 09:02 Fungal Culture - Preliminary Lung - Right 11/14/24 11:23 Gram Stain - Preliminary Pleural Fluid Body Fluid Culture - Preliminary - Imaging and Cardiology Chest x-ray: report reviewed, image reviewed Assessment and Plan Assessment: Right basilar masslike consolidation, malignancy versus infection Right loculated effusion, complicated, related to infection versus cancer Leukocytosis Hyponatremia Chest pain, cough with sputum secondary to above Recent 8 pound weight loss over 6 weeks History of gastric ulcer Raynaud's Distant remote history of smoking Plan: Continue pigtail catheter on the right, will instill seventh dose of lytics today, allowed to dwell for 1 to 2 hours Continue chest tube to continuous wall suction, may take off suction for patient to ambulate in the hallway Patient is not a surgical candidate Antibiotics per infectious disease Incentive spirometry ordered and should be encouraged Increase activity as tolerated Medical management of other comorbidities per internal medicine, pulmonology, infectious disease More recommendations to follow
[2024-11-18 09:34] LABS: African American GFR (CKD) >90 (>60 ml/min/1.73 sqM); Anion Gap 5 mmol/L; Blood Urea Nitrogen 6 mg/dL (7-17); Calcium 7.4 mg/dL (8.4-10.2); Carbon Dioxide 19 mmol/L (22-30); Chloride 111 mmol/L (98-107); Glucose 96 mg/dL (74-99); Non-African American GFR(CKD) >90 (>60 ml/min/1.73 sqM); Sodium 135 mmol/L (137-145)
[2024-11-18] MEDS: ALTEPLASE 10 MG in SODIUM CHLORIDE 0.9% 50 ML IRRIGATION ONE (09:57)
[2024-11-18] MEDS: DORNASE ALFA 5 MG in SODIUM CHLORIDE 0.9% 50 ML IRRIGATION ONE (09:57)
[2024-11-18 09:59] LABS: Potassium 5.4 mmol/L (3.5-5.1)
--- NOTE | 2024-11-18 12:48 | P.PN ---
Subjective Progress Note Date: 11/18/24 Principal diagnosis: Sepsis. 69-year-old female presenting the emergency department last night with a chief complaint of right upper quadrant abdominal pain with radiation to the right back. Ongoing for the last 2 days. Workup in the emergency department including abdominal/pelvis CT which does not show any acute intra-abdominal process. Remarkable for right middle lobe cystic lesion and moderate to large right-sided pleural effusion. Follow-up chest CTA did not show any evidence of pulmonary embolism. Right basilar masslike consolidation measuring 5.4 x 5.8 cm, concerning for possible malignancy. Additional surrounding airspace consolidation, possibly superimposed pneumonia. Large right-sided pleural effusion noted. Severe centrilobular emphysematous changes. Labs remarkable for a CBC with a WBC count of 62.7, hemoglobin 13.4, platelets 801. CMP with a sodium 130, potassium 5, chloride 95, serum bicarb 24, BUN 28, creatinine 0.88, glucose 105. Lactate 2.7 down to 1.1. AST 57, ALT 26, ALP 268. Troponins less than 0.012. NT proBNP 467. Lipase 26. Patient currently being evaluated in emergency department. She is resting comfortably on 2 L/min nasal cannula. SpO2 reading 98%. Again endorses above-mentioned right upper quadrant pain with radiation to the right thoracic level back. Previously, rated 9 out of 10 on a 10 point numerical scale. Started approximately 2 days ago. Denies any nausea, vomiting, change in bowel movements, diarrhea. Does endorse previous congested cough without much sputum production. Denies any significant purulent sputum or hemoptysis. Denies any fevers, chills. No previously diagnosed COPD. She is a former tobacco smoker, quit approximately 9 years ago. Prior to this, she smoked 1 pack, which lasted for almost a month. No family or personal history of lung cancer. No significant unintentional weight loss. No recent outpatient treatments for pneumonias. Her primary care provider is Dr. Muñoz. Given empiric doses of azithromycin, Rocephin, Flagyl, and vancomycin in the ED. Afebrile. Normal saline infusing at 130 mL/h. Nontoxic appearance. Hemodynamic stable. The patient is seen today November 08, 2024 in follow-up on the regular medical floor. She is currently sitting up in bed. Awake and alert in no acute distress. Maintaining good O2 saturations in the 90s on 2 L/min per nasal cannula. She did have a right sided pigtail catheter placed yesterday. She als o had a thoracentesis performed yesterday. She continues with hazy yellow output. Her pleural fluid was exudate with a protein of 3.6 and an LDH greater than 2500. Procalcitonin was 2.74. She is currently on Unasyn. Chest x-ray continues to show ongoing moderate to large right pleural effusion with underlying atelectasis and/or consolidation. Minimally decreased compared to previous. Pleural fluid cultures are pending. White count 26.2. Hemoglobin 11.2. Platelets 544. Sodium 134. Potassium 3.7. Bicarb 23. BUN 14. Creatinine 0.52. Viral screen was negative for influenza A/B, RSV, COVID. The patient is seen today November 09, 2024 in follow-up on the regular medical floor. She is awake and alert in no acute distress. She did have some issues with desaturations earlier this morning with minimal activity. Chest x-ray shows worsening left-sided pleural effusion which is now moderate. She is currently maintaining good O2 saturations in the mid 90s on 5 L high flow nasal cannula. She is afebrile. Hemodynamically stable. She did have lytics instilled into the pigtail catheter yesterday. A total of 1420 mL have been returned since. Additional lytics will be instilled today per CT service. She continues to work well with the incentive spirometer. She remains on Unasyn. Pleural fluid cultures pending. Cytology pending. White count 38.6. Hemoglobin 11.5. Platelets 605. Seen today on 11/10/2024, patient is feeling better, breathing easier, chest x- ray is not showing much improvement on the right side pleural effusion. Still undergoing lytic therapy. May have to consider repeat CT of the chest in the next couple of days. Clinically however the patient is doing well, remains on antibiotics, cytology from the pleural effusion came back negative, cultures remain negative, still the differential diagnosis includes malignancy and/or parapneumonic complicated pleural effusion. Patient was seen today on 11/11/2024, patient is doing well, unfortunately angelo fontaine pulled out her pigtail catheter accidentally, and no more lytic therapy could be given for this patient at this point, the chest x-ray is showing improvement, but her initial CT of the chest raised the possibility of malignancy/lung mass, I will go ahead and recommend repeat CT of the chest now for follow-up on the initially abnormal CT of the chest. Clinically I did not believe the patient had lung mass, I felt she had masslike consolidation. And may have resolved based on the fact that the patient has been receiving lytic therapy for her complicated right-sided pleural effusion. The pleural effusion was negative for malignancy. And it was negative for active infection as the cultures have been negative. Patient was seen today on 11/12/2024, patient seems to be comfortable, not in distress, continues to have leukocytosis with WBC count of 24,000, continues to have a right middle lobe cystic lesion, exact etiology is not clear, strongly doubt malignancy I believe is most likely a bulla filled with fluid. Or could represent retained secretions and airway. CT of the chest showed hydropneumothorax, I believe the patient may benefit eventually either from placement of pigtail catheter again or decortication if thoracic surgery is willing. May also require bronchoscopy and biopsy or evaluation of the right middle lobe. At this point in time we are continuing antibiotics, and we need to readdress that pigtail catheter again on Wednesday. Patient was seen today on 11/13/2024, patient is comfortable, not in distress, on nasal cannula patient is supposed to have placement of pigtail catheter again tomorrow for lytic therapy. In the meantime remains on antibiotics, continues to have loculated pleural effusion, and the fluid came back positive for Streptococcus intermedius. Continues to have leukocytosis with WC count of 24.0 hemoglobin 10.3. Patient is on 2 L nasal cannula and O2 sat is 91 to 94% Progress note dated November 14, 2024. 69-year-old female seen today in room 360. She is awake and alert. She is resting comfortably in bed. The patient currently is on Rocephin and Flagyl. She is on 2 L nasal cannula. No IV fluids. The pigtail catheter will be replaced today. She continues to be followed by cardiothoracic surgery. Laboratory data includes a white count of 18.8, hemoglobin 10.6, hematocrit 31.4, and a platelet count of 506,000. Sodium 134, potassium 3.8, chlorides 106, CO2 22, BUN 7, creatinine 0.49. Glucose is 70. Albumin 1.7. Pleural fluid cultures were positive for Streptococcus intermedius. Chest x-ray shows a persistent right basilar opacity/effusion. Progress note dated November 15, 2024. 69-year-old female seen today in room 360. The patient is resting comfortably in bed. She is currently on 2 L. No IV fluids. She has a right pigtail catheter in place. She is receiving both Rocephin and Flagyl, for streptococcal infection. The patient is receiving tPA, and alpha dornase, as per cardiothoracic surgery. Clinically, she is feeling well. She is awake and alert. No respiratory distress. No new laboratory data today. Chest x-ray shows a right basilar pleural catheter. Right sided pleural effusion has diminished. Progress note dated November 16, 2024. 69-year-old female seen today in room 360. She is sitting up in bed. She is alert and awake. No acute distress. She is continues on nasal O2 at 2 L. She is getting saline at 10 cc an hour. Her right pigtail catheter continues to function. She did receive tPA and alpha dornase today, via cardiothoracic surgery. The patient continues on Rocephin and Flagyl. No new laboratory data today. Chest x-ray today, November 16, shows diminished right lower lobe fluid collection. Drainage catheter, is noted. Progress note dated November 17, 2024. 69-year-old female seen again in room 360. She sitting in the chair next to the hospital bed. She is on room air. She continues on Rocephin and Flagyl. The patient did receive tPA, and alpha dornase today, administered by cardiothoracic surgery. Her chest x-ray continues to show improvement. Clinically, she is very stable. She has a right sided pigtail catheter in place. White count of 17.5, hemoglobin 10.5, hematocrit 30.8, platelet count 703,000. Sodium 133, potassium 4.1, chlorides 108, CO2 23, BUN 3, creatinine 0.56. Glucose is 100. Calcium is 7.0. Albumin is 1.7. Pleural fluid back from November 07, is positive for Streptococcus species. Chest x-ray shows improving right-sided opacities. Progress note dated November 18, 2024. 69-year-old female seen today in room 360. The patient is resting comfortably in bed. She is awake and alert. She is on room air. She is getting saline at 50 cc an hour. Cardiothoracic surgery is not planning to place any lytics, through her right sided pigtail catheter today. Currently, the patient is without complaints. Current laboratory data includes a sodium 135, potassium 5.4, chlorides 111, CO2 19, BUN 6, creatinine 0.57. Calcium is 7.4. Pleural fluid cultures were positive for Streptococcus intermedius. Chest x-ray is essentially unchanged. Objective - Vital Signs Vital signs: Vital Signs Temp 97.6 F 11/18/24 11:54 Pulse 89 11/18/24 11:54 Resp 16 11/18/24 11:54 BP 88/58 11/18/24 11:54 Pulse Ox 95 11/18/24 11:54 FiO2 21 11/17/24 11:14 Intake & Output 11/17/24 11/18/24 11/18/24 18:59 06:59 18:59 Intake Total 608 540 Output Total 202 140 Balance 406 400 Weight 60.6 kg Intake: IV 10 Invasive Line 4 10 Oral 598 540 Output: Chest Tube Drainage 202 140 Chest Tube Right Upper 202 140 Posterior Chest Other: Voiding Method Bedside Commode Bedside Commode Bedside Commode # Voids 1 1 # Bowel Movements 1 - Exam No acute distress, oriented 3. HEENT examination is grossly unremarkable. Mucous membranes are moist. No oral lesions. Neck supple. Full range of motion. No adenopathy thyromegaly or neck vein di stention. Cardiovascular examination reveals regular rhythm rate. S1-S2 normal. No S3 or S4. No discernible murmur noted. Lungs reveal diminished right basilar lung sounds. Mild scattered rhonchi. No wheezes or crackles. Right pigtail catheter in place. Abdomen soft bowel sounds are heard. No masses or tenderness. Extremities are intact. No cyanosis clubbing or edema. Skin is without rash or lesion. Neurologic examination is brief but nonfocal. - Labs CBC & Chem 7: 11/17/24 06:00 11/18/24 08:06 Labs: Abnormal Lab Results - Last 24 Hours (Table) 11/18/24 Range/Units 08:06 Sodium 135 L (137-145) mmol/L Potassium 5.4 H (3.5-5.1) mmol/L Chloride 111 H (98-107) mmol/L Carbon Dioxide 19 L (22-30) mmol/L BUN 6 L (7-17) mg/dL Calcium 7.4 L (8.4-10.2) mg/dL Microbiology - Last 24 Hours (Table) 11/14/24 11:23 Gram Stain - Final Pleural Fluid Body Fluid Culture - Final 11/07/24 09:02 Fungal Culture - Preliminary Lung - Right Assessment and Plan Assessment: Complicated right sided pleural effusion/exudate, fluid positive for Streptococcus intermedius, currently with pigtail catheter in place. Reinsertion of pigtail catheter, November 14, 2024. Status post right-sided thoracentesis. Acute hypoxemic respiratory failure. Acute leukocytosis, secondary to right pleural space infection. Plan: Plan dated November 14, 2024. The patient continues on antibiotics. The patient had a another pigtail catheter placed today by interventional radiology. Currently, the patient is on Flagyl, and Rocephin. She is not receiving any IV fluids. She is on 2 L nasal cannula. Labs, x-rays, and all medications are reviewed. We will continue to follow. The patient is currently not ready for discharge. Prognosis is guarded. Dictation was produced using [employer] software. Please excuse any grammatical, word or spelling errors. Plan dated November 15, 2024. The patient is seen today in room 360. She continues on nasal O2 2 L. She is not receiving any additional IV fluids. The patient continues on Rocephin, and Flagyl, for streptococcal infection. The right pigtail catheter is in place. The patient is receiving tPA, and alpha dornase, as per cardiothoracic surgery, to the right pleural space. Labs, x-rays, medications are reviewed. We will continue to follow the patient, and make recommendations where appropriate dictation was produced using [employer] software. Please excuse any grammatical, word or spelling errors. Plan dated November 16, 2024. The patient is again seen today in room 360. She continues on nasal O2 at 2 L. She is getting saline at 10 cc an hour. The right pigtail catheter is noted to be in place. Her chest x-ray is improved. She did receive tPA and alpha dornase, today, administered by cardiothoracic surgery. She continues on Rocephin and Flagyl. All labs, x-rays, and medications are reviewed. We will continue to follow make recommendations were appropriate. Dictation was produced using [employer] software. Please excuse any grammatical, word or spelling errors. Plan dated November 17, 2024. The patient is seen today in room 360. The patient is clinically improved, and radiographically improved. Right pigtail catheter remains in place. The patient remains both on Rocephin and Flagyl. The patient is currently on room air. No additional IV fluids. All labs, x-rays, and medications are reviewed. We will continue to follow the patient, make recommendations were appropriate. Prognosis is guarded. Dictation was produced using [employer] software. Please excuse any grammatical, word or spelling errors. Plan dated November 18, 2024. The patient is seen again in room 360. The patient is currently on room air. She is getting saline at 50 cc an hour. Right pigtail catheter in place. According to cardiothoracic surgery, no plans for installation of lytics, into the right pleural space. The patient was typically getting tPA, and alpha dornase. Labs, x-rays, and all medications are reviewed. The patient continues on Rocephin, and Flagyl. We will continue to follow make recommendations. Prognosis is guarded. Dictation was produced using [employer] software. Please excuse any grammatical, word or spelling errors. Time with Patient: Less than 30
[2024-11-18 14:07] LABS: Basophils # (A) 0.06 10*3/uL (0.00-0.10); Basophils % (A) 0.4 %; Eosinophils # (A) 0.03 10*3/uL (0.04-0.35); Eosinophils % (A) 0.2 %; HGB 10.8 g/dL (12.0-15.0); Lymphocytes # (A) 1.78 10*3/uL (0.90-5.00); Lymphocytes % (A) 10.8 %; MCH 30.1 pg (27.0-32.0); MCHC 34.8 g/dL (32.0-37.0); MCV 86.4 fL (80.0-97.0); Mean Platelet Volume 9.7 fL (9.5-12.2); Monocytes # (A) 1.27 10*3/uL (0.20-1.00); Monocytes % (A) 7.7 %; Neutrophils # (A) 13.02 10*3/uL (1.80-7.70); Neutrophils % (A) 79.4 %; Platelet Count 526 10*3/uL (140-440); RBC 3.59 10*6/uL (4.10-5.20); RDW 15.8 % (11.5-14.5); WBC 16.41 10*3/uL (4.50-10.00)
--- NOTE | 2024-11-18 14:44 | P.PN ---
Subjective Progress Note Date: 11/18/24 Patient evaluated today on the cardiac unit. Currently sitting up in the chair. Pigtail catheter in place. Atrium changed today. Chest xray today reveals diminished size right basilar fluid collection. Some adjacent infiltrate in present. Drainage catheter is stable in position. Small left pleural effusion. Reporting worsening lower extremity edema. Labs today reveal WBC 17.48, hgb 10.5, sodium 133, potassium 4.1, BUN 3, creatinine 0.56. 11/18/2024 Patient evaluated today on follow up. Currently resting in bed. DAVEY wraps to bilateral lower extremities continue. Patient has had 440 mls of drainage from the right sided chest tube in the last 24 hours. S/P dornase and alteplase today. Chest xray reveals small to moderate right pleural effusion. Sodium up to 135. Review of Systems Constitutional: Denied any fatigue denied any fever. Cardio vascular: denied any chest pain, palpitations Gastrointestinal: denied any nausea, vomiting, diarrhea Pulmonary: Denied any shortness of breath cough Neurologic denied any new focal deficits All inpatient medications were reviewed and appropriate changes in these medications as dictated in the interval history and assessment and plan. PHYSICAL EXAMINATION: GENERAL: The patient is alert and oriented x3, not in any acute distress. Well developed, well nourished. HEENT: Pupils are round and equally reacting to light. EOMI. No scleral icterus. No conjunctival pallor. Normocephalic, atraumatic. No pharyngeal erythema. No thyromegaly. CARDIOVASCULAR: S1 and S2 present. No murmurs, rubs, or gallops. PULMONARY: Chest is clear to auscultation, no wheezing or crackles. Pigtail catheter in place right chest wall. ABDOMEN: Soft, nontender, nondistended, normoactive bowel sounds. No palpable organomegaly. MUSCULOSKELETAL: No joint swelling or deformity. EXTREMITIES: No cyanosis, clubbing, or pedal edema. Mild lower extremity edema. NEUROLOGICAL: Gross neurological examination did not reveal any focal deficits. SKIN: No rashes. Assessment Right sided empyema status post pigtail catheter placement Loculated pleural effusion s/p thoracentesis with cultures growing streptococcus intermedius Acute hypoxemic respiratory failure from above Leukocytosis Hyponatremia hypovolemic Peripheral edema Hx Reynauds phenomenon Former smoker GI prophylaxis Full Code Plan Continue IV ceftriaxone, IV metronidazole S/P dornase and alteplase infusion CT surgery following Pulmonology following ID following Recommend to DAVEY wrap lower extremities monitor electrolytes and renal function PT/OT consultation The impression and plan of care has been dictated by Nitza Davis, Nurse Practitioner as directed. Dr. Riri MD I have performed a history and physical examination and medical decision making of this patient, discussed the same with the dictator, and agree with the dictators assessment and plan as written, documented as a scribe. Based on total visit time, I have performed more than 50% of this visit. Objective - Vital Signs Vital signs: Vital Signs Temp 97.6 F 11/18/24 11:54 Pulse 78 11/18/24 13:50 Resp 16 11/18/24 11:54 BP 88/58 11/18/24 11:54 Pulse Ox 95 11/18/24 11:54 FiO2 21 11/17/24 11:14 Intake & Output 11/17/24 11/18/24 11/18/24 18:59 06:59 18:59 Intake Total 608 540 Output Total 202 140 Balance 406 400 Weight 60.6 kg Intake: IV 10 Invasive Line 4 10 Oral 598 540 Output: Chest Tube Drainage 202 140 Chest Tube Right Upper 202 140 Posterior Chest Other: Voiding Method Bedside Commode Bedside Commode Bedside Commode # Voids 1 1 # Bowel Movements 1 - Labs CBC & Chem 7: 11/18/24 12:34 11/18/24 08:06 Labs: Abnormal Lab Results - Last 24 Hours (Table) 11/18/24 11/18/24 Range/Units 08:06 12:34 WBC 16.41 H (4.50-10.00) 10*3/uL RBC 3.59 L (4.10-5.20) 10*6/uL Hgb 10.8 L (12.0-15.0) g/dL Hct 31.0 L (37.2-46.3) % Plt Count 526 H (140-440) 10*3/uL Immature Gran # 0.25 H (0.00-0.04) 10*3/uL Neutrophils # 13.02 H (1.80-7.70) 10*3/uL Monocytes # 1.27 H (0.20-1.00) 10*3/uL Eosinophils # 0.03 L (0.04-0.35) 10*3/uL Sodium 135 L (137-145) mmol/L Potassium 5.4 H (3.5-5.1) mmol/L Chloride 111 H (98-107) mmol/L Carbon Dioxide 19 L (22-30) mmol/L BUN 6 L (7-17) mg/dL Calcium 7.4 L (8.4-10.2) mg/dL Microbiology - Last 24 Hours (Table) 11/14/24 11:23 Gram Stain - Final Pleural Fluid Body Fluid Culture - Final 11/07/24 09:02 Fungal Culture - Preliminary Lung - Right Assessment and Plan Time with Patient: Less than 30
--- NOTE | 2024-11-18 15:17 | P.PN ---
Subjective Progress Note Date: 11/18/24 Principal diagnosis: Reason for follow-up is pneumonia/empyema Patient is a 69-year-old female with a past medical history significant for ulcer Raynaud's phenomena and osteoporosis presenting to the hospital for evaluation of right-sided chest pain and cough, patient be diagnosed with right-sided effusion history of empyema and pneumonia prompted this consultation. On today's evaluation that is 11/18/2024, the patient continues to be afebrile, the patient is on 2 L nasal cannula oxygen and breathing comfortably, the Pt denies having any chest pain or worsening cough, the patient denies having any abdominal pain no vomiting and did have resolution of her diarrhea. Patient white count is down to 16.41 creatinine 0.57 Objective - Vital Signs Vital signs: Vital Signs Temp 97.6 F 11/18/24 11:54 Pulse 89 11/18/24 14:00 Resp 16 11/18/24 14:00 BP 88/58 11/18/24 11:54 Pulse Ox 95 11/18/24 11:54 FiO2 21 11/17/24 11:14 Intake & Output 11/17/24 11/18/24 11/18/24 18:59 06:59 18:59 Intake Total 608 540 Output Total 202 140 Balance 406 400 Weight 60.6 kg Intake: IV 10 Invasive Line 4 10 Oral 598 540 Output: Chest Tube Drainage 202 140 Chest Tube Right Upper 202 140 Posterior Chest Other: Voiding Method Bedside Commode Bedside Commode Bedside Commode # Voids 1 1 # Bowel Movements 1 - Exam GENERAL DESCRIPTION: An elderly female lying in bed in no distress RESPIRATORY SYSTEM: Unlabored breathing , decreased breath sounds at bases HEART: S1 S2 regular rate and rhythm , ABDOMEN: Soft , no tenderness EXTREMITIES: No edema feet - Labs CBC & Chem 7: 11/18/24 12:34 11/18/24 08:06 Labs: Abnormal Lab Results - Last 24 Hours (Table) 11/18/24 11/18/24 Range/Units 08:06 12:34 WBC 16.41 H (4.50-10.00) 10*3/uL RBC 3.59 L (4.10-5.20) 10*6/uL Hgb 10.8 L (12.0-15.0) g/dL Hct 31.0 L (37.2-46.3) % Plt Count 526 H (140-440) 10*3/uL Immature Gran # 0.25 H (0.00-0.04) 10*3/uL Neutrophils # 13.02 H (1.80-7.70) 10*3/uL Monocytes # 1.27 H (0.20-1.00) 10*3/uL Eosinophils # 0.03 L (0.04-0.35) 10*3/uL Sodium 135 L (137-145) mmol/L Potassium 5.4 H (3.5-5.1) mmol/L Chloride 111 H (98-107) mmol/L Carbon Dioxide 19 L (22-30) mmol/L BUN 6 L (7-17) mg/dL Calcium 7.4 L (8.4-10.2) mg/dL Microbiology - Last 24 Hours (Table) 11/14/24 11:23 Gram Stain - Final Pleural Fluid Body Fluid Culture - Final 11/07/24 09:02 Fungal Culture - Preliminary Lung - Right Assessment and Plan (1) Sepsis Current Visit: Yes Status: Acute Code(s): A41.9 - SEPSIS, UNSPECIFIED ORGANISM SNOMED Code(s): 02384011 (2) Empyema lung Current Visit: Yes Status: Acute Code(s): J86.9 - PYOTHORAX WITHOUT FISTULA SNOMED Code(s): 27053170 (3) Pneumonia Current Visit: Yes Status: Acute Code(s): J18.9 - PNEUMONIA, UNSPECIFIED ORGANISM SNOMED Code(s): 318312201 Plan: 1patient presented to hospital with sepsis in this patient who did have tachypnea and tachycardia elevated white count as well as elevated lactic acid meeting criteria for SIRS/sepsis source is right-sided pneumonia with a question of postobstructive and a possible component of empyema likely community-acquired pathogen in this patient with no history of recent antibiotic exposure or flulike symptoms 2-patient is afebrile pleural fluid culture currently growing Streptococcus intermedius micro lab unable to do sensitivity as reported organism not growing 3patient is afebrile white count was down to 16,000 4patient will be continued with Rocephin 2 g daily and oral Flagyl, and will likely need a short course of IV antibiotic on discharge Dictation was produced using [employer] dictation software. please excuse any grammatical, word or spelling errors. Time with Patient: Less than 30
--- NOTE | 2024-11-19 07:19 | XR ---
EXAMINATION TYPE: XR chest 1V portable DATE OF EXAM: 11/19/2024 5:43 AM COMPARISON: Multiple radiographs, with the most recent on 11/18/2024 TECHNIQUE: XR chest 1V portable Portable AP radiograph of the chest. CLINICAL INDICATION:Female, 69 years old with history of Empyema; FINDINGS: Lungs/Pleura: Background emphysematous changes. Left lung is clear. Increasing moderate-sized right p leural effusion with similar right basilar consolidation. Similar position and a right-sided pleural pigtail catheter. Pulmonary vascularity: Unremarkable. Heart/mediastinum: Cardiomediastinal silhouette is unremarkable. Atherosclerotic calcifications are seen in the aorta. Musculoskeletal: No acute osseous pathology. IMPRESSION: 1. Increasing moderate size right pleural effusion and stable position of pleural pigtail catheter. 2. Similar right basilar consolidation concerning for infiltrate versus atelectasis. 3. Emphysematous changes. [facility], , 11/19/2024 7:17 AM
--- NOTE | 2024-11-19 08:09 | P.PN ---
Subjective Progress Note Date: 11/19/24 Principal diagnosis: Right basilar masslike consolidation, right loculated effusion, leukocytosis, hyponatremia. History of gastric ulcer, raynaud's, distant remote history of smoking POD #5 reinsertion of right pigtail catheter by interventional radiology The patient was seen and examined this morning sitting up at the bedside eating breakfast in no acute distress. Patient received seventh dose of lytics yesterday, output has decreased significantly, only 50 mL out in the last 24 hours. Patient appears to be doing well, remains on IV antibiotics per infectious disease. Chest x-ray reviewed. Objective - Vital Signs Vital signs: Vital Signs Temp 98.0 F 11/19/24 07:50 Pulse 106 H 11/19/24 07:50 Resp 16 11/19/24 07:50 BP 104/70 11/19/24 07:50 Pulse Ox 91 L 11/19/24 07:50 FiO2 21 11/17/24 11:14 Intake & Output 11/18/24 11/19/24 11/19/24 18:59 06:59 18:59 Output Total 60 0 Balance -60 0 Weight 60.1 kg Output: Chest Tube Drainage 60 0 Chest Tube Right Upper 60 0 Posterior Chest Other: Voiding Method Bedside Commode Bedside Commode # Voids 1 # Bowel Movements 1 - Exam CONSTITUTIONAL: Appears comfortable, cooperative, no acute distress RESPIRATORY: Lungs sounds diminished in the right base. Respirations even, nonlabored. Currently on room air with oxygen saturation 91%. Able to achieve 1000 mL on incentive spirometry. Strong cough. CARDIOVASCULAR: S1, S2 present. Regular rate and rhythm. Palpable peripheral pulses bilaterally. Bilateral lower extremity edema present. No calf pain or tenderness noted. SCDs present. GASTROINTESTINAL: Abdomen soft, nontender, nondistended. Active bowel sounds present 4 quadrants. Tolerating diet. Positive bowel movement 11/18 GENITOURINARY: Continues to void INTEGUMENTARY: Skin is warm and dry with evidence of good perfusion NEUROLOGIC: Cranial nerves II through XII intact MUSKULOSKELETAL: Able to move all extremities, strength equal bilaterally PSYCHIATRIC: Alert and oriented to person place and time INVASIVE LINES AND TUBES: Right sided pigtail present to continuous wall suction, no airleak present, 50 mL output in the last 24 hours - Allied health notes Allied health notes reviewed: nursing - Labs CBC & Chem 7: 11/18/24 12:34 11/18/24 08:06 Labs: Abnormal Lab Results - Last 24 Hours (Table) 11/18/24 11/18/24 Range/Units 08:06 12:34 WBC 16.41 H (4.50-10.00) 10*3/uL RBC 3.59 L (4.10-5.20) 10*6/uL Hgb 10.8 L (12.0-15.0) g/dL Hct 31.0 L (37.2-46.3) % Plt Count 526 H (140-440) 10*3/uL Immature Gran # 0.25 H (0.00-0.04) 10*3/uL Neutrophils # 13.02 H (1.80-7.70) 10*3/uL Monocytes # 1.27 H (0.20-1.00) 10*3/uL Eosinophils # 0.03 L (0.04-0.35) 10*3/uL Sodium 135 L (137-145) mmol/L Potassium 5.4 H (3.5-5.1) mmol/L Chloride 111 H (98-107) mmol/L Carbon Dioxide 19 L (22-30) mmol/L BUN 6 L (7-17) mg/dL Calcium 7.4 L (8.4-10.2) mg/dL Microbiology - Last 24 Hours (Table) 11/14/24 11:23 Gram Stain - Final Pleural Fluid Body Fluid Culture - Final - Imaging and Cardiology Chest x-ray: report reviewed, image reviewed Assessment and Plan Assessment: Right basilar masslike consolidation, malignancy versus infection Right loculated effusion, complicated, related to infection versus cancer Leukocytosis Hyponatremia Chest pain, cough with sputum secondary to above Recent 8 pound weight loss over 6 weeks History of gastric ulcer Raynaud's Distant remote history of smoking Plan: Continue pigtail catheter on the right, no further lytic installation as patient did not have a good response in the last 24 hours Patient is not a surgical candidate Antibiotics per infectious disease Incentive spirometry ordered and should be encouraged Increase activity as tolerated Medical management of other comorbidities per internal medicine, pulmonology, infectious disease More recommendations to follow
[2024-11-19 09:55] LABS: Basophils # (A) 0.06 10*3/uL (0.00-0.10); Basophils % (A) 0.4 %; Eosinophils # (A) 0.06 10*3/uL (0.04-0.35); Eosinophils % (A) 0.4 %; HCT 32.2 % (37.2-46.3); HGB 10.8 g/dL (12.0-15.0); MCH 29.7 pg (27.0-32.0); MCHC 33.5 g/dL (32.0-37.0); MCV 88.5 fL (80.0-97.0); Mean Platelet Volume 8.8 fL (9.5-12.2); Monocytes # (A) 0.89 10*3/uL (0.20-1.00); Monocytes % (A) 6.3 %; Neutrophils % (A) 81.9 %; Platelet Count 675 10*3/uL (140-440); RBC 3.64 10*6/uL (4.10-5.20); RDW 16.3 % (11.5-14.5); WBC 14.05 10*3/uL (4.50-10.00)
[2024-11-19 10:05] LABS: African American GFR (CKD) >90 (>60 ml/min/1.73 sqM); Anion Gap 6 mmol/L; Blood Urea Nitrogen 7 mg/dL (7-17); Calcium 7.4 mg/dL (8.4-10.2); Carbon Dioxide 20 mmol/L (22-30); Chloride 110 mmol/L (98-107); Glucose 124 mg/dL (74-99); Magnesium 1.5 mg/dL (1.6-2.3); Non-African American GFR(CKD) >90 (>60 ml/min/1.73 sqM); Potassium 4.1 mmol/L (3.5-5.1); Sodium 136 mmol/L (137-145)
--- NOTE | 2024-11-19 12:06 | P.PN ---
Subjective Progress Note Date: 11/19/24 Principal diagnosis: Sepsis. 69-year-old female presenting the emergency department last night with a chief complaint of right upper quadrant abdominal pain with radiation to the right back. Ongoing for the last 2 days. Workup in the emergency department including abdominal/pelvis CT which does not show any acute intra-abdominal process. Remarkable for right middle lobe cystic lesion and moderate to large right-sided pleural effusion. Follow-up chest CTA did not show any evidence of pulmonary embolism. Right basilar masslike consolidation measuring 5.4 x 5.8 cm, concerning for possible malignancy. Additional surrounding airspace consolidation, possibly superimposed pneumonia. Large right-sided pleural effusion noted. Severe centrilobular emphysematous changes. Labs remarkable for a CBC with a WBC count of 62.7, hemoglobin 13.4, platelets 801. CMP with a sodium 130, potassium 5, chloride 95, serum bicarb 24, BUN 28, creatinine 0.88, glucose 105. Lactate 2.7 down to 1.1. AST 57, ALT 26, ALP 268. Troponins less than 0.012. NT proBNP 467. Lipase 26. Patient currently being evaluated in emergency department. She is resting comfortably on 2 L/min nasal cannula. SpO2 reading 98%. Again endorses above-mentioned right upper quadrant pain with radiation to the right thoracic level back. Previously, rated 9 out of 10 on a 10 point numerical scale. Started approximately 2 days ago. Denies any nausea, vomiting, change in bowel movements, diarrhea. Does endorse previous congested cough without much sputum production. Denies any significant purulent sputum or hemoptysis. Denies any fevers, chills. No previously diagnosed COPD. She is a former tobacco smoker, quit approximately 9 years ago. Prior to this, she smoked 1 pack, which lasted for almost a month. No family or personal history of lung cancer. No significant unintentional weight loss. No recent outpatient treatments for pneumonias. Her primary care provider is Dr. Muñoz. Given empiric doses of azithromycin, Rocephin, Flagyl, and vancomycin in the ED. Afebrile. Normal saline infusing at 130 mL/h. Nontoxic appearance. Hemodynamic stable. The patient is seen today November 08, 2024 in follow-up on the regular medical floor. She is currently sitting up in bed. Awake and alert in no acute distress. Maintaining good O2 saturations in the 90s on 2 L/min per nasal cannula. She did have a right sided pigtail catheter placed yesterday. She als o had a thoracentesis performed yesterday. She continues with hazy yellow output. Her pleural fluid was exudate with a protein of 3.6 and an LDH greater than 2500. Procalcitonin was 2.74. She is currently on Unasyn. Chest x-ray continues to show ongoing moderate to large right pleural effusion with underlying atelectasis and/or consolidation. Minimally decreased compared to previous. Pleural fluid cultures are pending. White count 26.2. Hemoglobin 11.2. Platelets 544. Sodium 134. Potassium 3.7. Bicarb 23. BUN 14. Creatinine 0.52. Viral screen was negative for influenza A/B, RSV, COVID. The patient is seen today November 09, 2024 in follow-up on the regular medical floor. She is awake and alert in no acute distress. She did have some issues with desaturations earlier this morning with minimal activity. Chest x-ray shows worsening left-sided pleural effusion which is now moderate. She is currently maintaining good O2 saturations in the mid 90s on 5 L high flow nasal cannula. She is afebrile. Hemodynamically stable. She did have lytics instilled into the pigtail catheter yesterday. A total of 1420 mL have been returned since. Additional lytics will be instilled today per CT service. She continues to work well with the incentive spirometer. She remains on Unasyn. Pleural fluid cultures pending. Cytology pending. White count 38.6. Hemoglobin 11.5. Platelets 605. Seen today on 11/10/2024, patient is feeling better, breathing easier, chest x- ray is not showing much improvement on the right side pleural effusion. Still undergoing lytic therapy. May have to consider repeat CT of the chest in the next couple of days. Clinically however the patient is doing well, remains on antibiotics, cytology from the pleural effusion came back negative, cultures remain negative, still the differential diagnosis includes malignancy and/or parapneumonic complicated pleural effusion. Patient was seen today on 11/11/2024, patient is doing well, unfortunately angelo fontaine pulled out her pigtail catheter accidentally, and no more lytic therapy could be given for this patient at this point, the chest x-ray is showing improvement, but her initial CT of the chest raised the possibility of malignancy/lung mass, I will go ahead and recommend repeat CT of the chest now for follow-up on the initially abnormal CT of the chest. Clinically I did not believe the patient had lung mass, I felt she had masslike consolidation. And may have resolved based on the fact that the patient has been receiving lytic therapy for her complicated right-sided pleural effusion. The pleural effusion was negative for malignancy. And it was negative for active infection as the cultures have been negative. Patient was seen today on 11/12/2024, patient seems to be comfortable, not in distress, continues to have leukocytosis with WBC count of 24,000, continues to have a right middle lobe cystic lesion, exact etiology is not clear, strongly doubt malignancy I believe is most likely a bulla filled with fluid. Or could represent retained secretions and airway. CT of the chest showed hydropneumothorax, I believe the patient may benefit eventually either from placement of pigtail catheter again or decortication if thoracic surgery is willing. May also require bronchoscopy and biopsy or evaluation of the right middle lobe. At this point in time we are continuing antibiotics, and we need to readdress that pigtail catheter again on Wednesday. Patient was seen today on 11/13/2024, patient is comfortable, not in distress, on nasal cannula patient is supposed to have placement of pigtail catheter again tomorrow for lytic therapy. In the meantime remains on antibiotics, continues to have loculated pleural effusion, and the fluid came back positive for Streptococcus intermedius. Continues to have leukocytosis with WC count of 24.0 hemoglobin 10.3. Patient is on 2 L nasal cannula and O2 sat is 91 to 94% Progress note dated November 14, 2024. 69-year-old female seen today in room 360. She is awake and alert. She is resting comfortably in bed. The patient currently is on Rocephin and Flagyl. She is on 2 L nasal cannula. No IV fluids. The pigtail catheter will be replaced today. She continues to be followed by cardiothoracic surgery. Laboratory data includes a white count of 18.8, hemoglobin 10.6, hematocrit 31.4, and a platelet count of 506,000. Sodium 134, potassium 3.8, chlorides 106, CO2 22, BUN 7, creatinine 0.49. Glucose is 70. Albumin 1.7. Pleural fluid cultures were positive for Streptococcus intermedius. Chest x-ray shows a persistent right basilar opacity/effusion. Progress note dated November 15, 2024. 69-year-old female seen today in room 360. The patient is resting comfortably in bed. She is currently on 2 L. No IV fluids. She has a right pigtail catheter in place. She is receiving both Rocephin and Flagyl, for streptococcal infection. The patient is receiving tPA, and alpha dornase, as per cardiothoracic surgery. Clinically, she is feeling well. She is awake and alert. No respiratory distress. No new laboratory data today. Chest x-ray shows a right basilar pleural catheter. Right sided pleural effusion has diminished. Progress note dated November 16, 2024. 69-year-old female seen today in room 360. She is sitting up in bed. She is alert and awake. No acute distress. She is continues on nasal O2 at 2 L. She is getting saline at 10 cc an hour. Her right pigtail catheter continues to function. She did receive tPA and alpha dornase today, via cardiothoracic surgery. The patient continues on Rocephin and Flagyl. No new laboratory data today. Chest x-ray today, November 16, shows diminished right lower lobe fluid collection. Drainage catheter, is noted. Progress note dated November 17, 2024. 69-year-old female seen again in room 360. She sitting in the chair next to the hospital bed. She is on room air. She continues on Rocephin and Flagyl. The patient did receive tPA, and alpha dornase today, administered by cardiothoracic surgery. Her chest x-ray continues to show improvement. Clinically, she is very stable. She has a right sided pigtail catheter in place. White count of 17.5, hemoglobin 10.5, hematocrit 30.8, platelet count 703,000. Sodium 133, potassium 4.1, chlorides 108, CO2 23, BUN 3, creatinine 0.56. Glucose is 100. Calcium is 7.0. Albumin is 1.7. Pleural fluid back from November 07, is positive for Streptococcus species. Chest x-ray shows improving right-sided opacities. Progress note dated November 18, 2024. 69-year-old female seen today in room 360. The patient is resting comfortably in bed. She is awake and alert. She is on room air. She is getting saline at 50 cc an hour. Cardiothoracic surgery is not planning to place any lytics, through her right sided pigtail catheter today. Currently, the patient is without complaints. Current laboratory data includes a sodium 135, potassium 5.4, chlorides 111, CO2 19, BUN 6, creatinine 0.57. Calcium is 7.4. Pleural fluid cultures were positive for Streptococcus intermedius. Chest x-ray is essentially unchanged. Progress note dated November 19, 2024. 69-year-old female seen today in room 360. She is lying in bed. She will not receive any tPA or alpha dornase today. She is on 2 L. No IV fluids. Clinically, she looks comfortable. She is in no acute distress. She is not coughing or short of breath. Today's labs include a white count of 14.1, hemoglobin 10.8, hematocrit 32.2, and a platelet count of 675,000. Sodium 136, potassium 4.1, chlorides 110, CO2 20, BUN 7, creatinine 0.58. Pleural fluid cultures were positive for Streptococcus intermedius. Chest x-ray reveals a right sided pleural effusion. Right pigtail catheter is unchanged. Some atelectasis is noted at the bases as well. Objective - Vital Signs Vital signs: Vital Signs Temp 98.0 F 11/19/24 07:50 Pulse 102 H 11/19/24 11:23 Resp 16 11/19/24 07:50 BP 104/70 11/19/24 07:50 Pulse Ox 92 L 11/19/24 08:16 FiO2 21 11/17/24 11:14 Intake & Output 11/18/24 11/19/24 11/19/24 18:59 06:59 18:59 Output Total 60 0 Balance -60 0 Weight 60.1 kg Output: Chest Tube Drainage 60 0 Chest Tube Right Upper 60 0 Posterior Chest Other: Voiding Method Bedside Commode Bedside Commode Bedside Commode # Voids 1 # Bowel Movements 1 - Exam No acute distress, oriented 3. HEENT examination is grossly unremarkable. Mucous membranes are moist. No oral lesions. Neck supple. Full range of motion. No adenopathy thyromegaly or neck vein distention. Cardiovascular examination reveals regular rhythm rate. S1-S2 normal. No S3 or S4. No discernible murmur noted. Lungs reveal diminished right basilar lung sounds. Mild scattered rhonchi. No wheezes or crackles. Right pigtail catheter in place. Abdomen soft bowel sounds are heard. No masses or tenderness. Extremities are intact. No cyanosis clubbing or edema. Skin is without rash or lesion. Neurologic examination is brief but nonfocal. - Labs CBC & Chem 7: 11/19/24 09:35 11/19/24 09:35 Labs: Abnormal Lab Results - Last 24 Hours (Table) 11/18/24 11/19/24 11/19/24 Range/Units 12:34 09:35 09:35 WBC 16.41 H 14.05 H (4.50-10.00) 10*3/uL RBC 3.59 L 3.64 L (4.10-5.20) 10*6/uL Hgb 10.8 L 10.8 L (12.0-15.0) g/dL Hct 31.0 L 32.2 L (37.2-46.3) % Plt Count 526 H 675 H (140-440) 10*3/uL MPV 8.8 L (9.5-12.2) fL Immature Gran # 0.25 H 0.14 H (0.00-0.04) 10*3/uL Neutrophils # 13.02 H 11.50 H (1.80-7.70) 10*3/uL Monocytes # 1.27 H (0.20-1.00) 10*3/uL Eosinophils # 0.03 L (0.04-0.35) 10*3/uL Sodium 136 L (137-145) mmol/L Chloride 110 H (98-107) mmol/L Carbon Dioxide 20 L (22-30) mmol/L Glucose 124 H (74-99) mg/dL Calcium 7.4 L (8.4-10.2) mg/dL Magnesium 1.5 L (1.6-2.3) mg/dL Microbiology - Last 24 Hours (Table) 11/14/24 11:23 Gram Stain - Final Pleural Fluid Body Fluid Culture - Final Assessment and Plan Assessment: Complicated right sided pleural effusion/exudate, fluid positive for Strept ococcus intermedius, currently with pigtail catheter in place. Reinsertion of pigtail catheter, November 14, 2024. Status post right-sided thoracentesis. Acute hypoxemic respiratory failure. Acute leukocytosis, secondary to right pleural space infection. Plan: Plan dated November 14, 2024. The patient continues on antibiotics. The patient had a another pigtail catheter placed today by interventional radiology. Currently, the patient is on Flagyl, and Rocephin. She is not receiving any IV fluids. She is on 2 L nasal cannula. Labs, x-rays, and all medications are reviewed. We will continue to follow. The patient is currently not ready for discharge. Prognosis is guarded. Dictation was produced using [employer] software. Please excuse any grammatical, word or spelling errors. Plan dated November 15, 2024. The patient is seen today in room 360. She continues on nasal O2 2 L. She is not receiving any additional IV fluids. The patient continues on Rocephin, and Flagyl, for streptococcal infection. The right pigtail catheter is in place. The patient is receiving tPA, and alpha dornase, as per cardiothoracic surgery, to the right pleural space. Labs, x-rays, medications are reviewed. We will continue to follow the patient, and make recommendations where appropriate dictation was produced using [employer] software. Please excuse any grammatical, word or spelling errors. Plan dated November 16, 2024. The patient is again seen today in room 360. She continues on nasal O2 at 2 L. She is getting saline at 10 cc an hour. The right pigtail catheter is noted to be in place. Her chest x-ray is improved. She did receive tPA and alpha dornase, today, administered by cardiothoracic surgery. She continues on Rocephin and Flagyl. All labs, x-rays, and medications are reviewed. We will continue to follow make recommendations were appropriate. Dictation was produced using [employer] software. Please excuse any grammatical, word or spelling errors. Plan dated November 17, 2024. The patient is seen today in room 360. The patient is clinically improved, and radiographically improved. Right pigtail catheter remains in place. The patient remains both on Rocephin and Flagyl. The patient is currently on room air. No additional IV fluids. All labs, x-rays, and medications are reviewed. We will continue to follow the patient, make recommendations were appropriate. Prognosis is guarded. Dictation was produced using [employer] software. Please excuse any grammatical, word or spelling errors. Plan dated November 18, 2024. The patient is seen again in room 360. The patient is currently on room air. She is getting saline at 50 cc an hour. Right pigtail catheter in place. According to cardiothoracic surgery, no plans for installation of lytics, into the right pleural space. The patient was typically getting tPA, and alpha dornase. Labs, x-rays, and all medications are reviewed. The patient continues on Rocephin, and Flagyl. We will continue to follow make recommendations. Prognosis is guarded. Dictation was produced using [employer] software. Please excuse any grammatical, word or spelling errors. Plan dated November 19, 2024. The patient is seen today in room 360. She is laying flat in bed. No distress. She is currently on 2 L nasal cannula. She is not receiving any IV fluids. She was seen by cardiothoracic surgery. They are not planning to give her any more alpha dornase or tPA, through the right sided pigtail catheter. Clinically, the patient is very stable. We will continue to follow. X-rays, labs, and all medications are reviewed. Additional recommendations and suggestions are forthcoming. The patient continues on Rocephin and Flagyl. Prognosis is guarded. Dictation was produced using [employer] software. Please excuse any grammatical, word or spelling errors. Time with Patient: Less than 30
--- NOTE | 2024-11-19 14:08 | P.PN ---
Subjective Progress Note Date: 11/19/24 Patient evaluated today on the cardiac unit. Currently sitting up in the chair. Pigtail catheter in place. Atrium changed today. Chest xray today reveals diminished size right basilar fluid collection. Some adjacent infiltrate in present. Drainage catheter is stable in position. Small left pleural effusion. Reporting worsening lower extremity edema. Labs today reveal WBC 17.48, hgb 10.5, sodium 133, potassium 4.1, BUN 3, creatinine 0.56. 11/18/2024 Patient evaluated today on follow up. Currently resting in bed. DAVEY wraps to bilateral lower extremities continue. Patient has had 440 mls of drainage from the right sided chest tube in the last 24 hours. S/P dornase and alteplase today. Chest xray reveals small to moderate right pleural effusion. Sodium up to 135. 11/19/2024 Patient evaluated in follow-up on the cardiac unit. She continues with a pigtail catheter to the right chest wall secondary to an infectious empyema. Cultures from the empyema showing Streptococcus intermedius. Repeat pleural cultures are negative so far. She remains on IV ceftriaxone and IV metronidazole with ID following this patient closely. CT surgery is following this patient. Her chest x-ray today reveals increasing moderate size right pleural effusion and stable position of the PEG pleural pigtail catheter. There is a similar right basilar consolidation concerning for infiltrate versus atelectasis. There is emphysematous changes. WBC 18.76, hgb 10.6, sodium 134, potassium 3.8, BUN 7, creatinine 0.49. She is currently on oxygen at 2 L of nasal cannula saturations of 92%. Blood pressure 104/70. Drainage from the pleural catheter is decreasing. Review of Systems Constitutional: Denied any fatigue denied any fever. Cardio vascular: denied any chest pain, palpitations Gastrointestinal: denied any nausea, vomiting, diarrhea Pulmonary: Denied any shortness of breath cough Neurologic denied any new focal deficits All inpatient medications were reviewed and appropriate changes in these medi cations as dictated in the interval history and assessment and plan. PHYSICAL EXAMINATION: GENERAL: The patient is alert and oriented x3, not in any acute distress. Well developed, well nourished. HEENT: Pupils are round and equally reacting to light. EOMI. No scleral icterus. No conjunctival pallor. Normocephalic, atraumatic. No pharyngeal erythema. No thyromegaly. CARDIOVASCULAR: S1 and S2 present. No murmurs, rubs, or gallops. PULMONARY: Chest is clear to auscultation, no wheezing or crackles. Pigtail catheter in place right chest wall. ABDOMEN: Soft, nontender, nondistended, normoactive bowel sounds. No palpable organomegaly. MUSCULOSKELETAL: No joint swelling or deformity. EXTREMITIES: No cyanosis, clubbing, or pedal edema. Mild lower extremity edema. NEUROLOGICAL: Gross neurological examination did not reveal any focal deficits. SKIN: No rashes. Assessment Right sided empyema status post pigtail catheter placement Loculated pleural effusion s/p thoracentesis with cultures growing streptococcus intermedius Acute hypoxemic respiratory failure from above Peripheral edema Leukocytosis Hyponatremia hypovolemic Peripheral edema Hx Reynauds phenomenon Former smoker GI prophylaxis Full Code Plan Continue IV ceftriaxone, IV metronidazole CT surgery following Pulmonology following ID following Recommend to DAVEY wrap lower extremities Check a venous doppler Patients toes on the left are purple in color she does have a palpable dorsalis pedis pulse. She states that is normal for her with her reynauds. monitor electrolytes and renal function PT/OT consultation The impression and plan of care has been dictated by Nitza Davis Nurse Practitioner as directed. Dr. Riri MD I have performed a history and physical examination and medical decision making of this patient, discussed the same with the dictator, and agree with the dictators assessment and plan as written, documented as a scribe. Based on total visit time, I have performed more than 50% of this visit. Objective - Vital Signs Vital signs: Vital Signs Temp 98.0 F 11/19/24 07:50 Pulse 100 11/19/24 08:28 Resp 16 11/19/24 07:50 BP 104/70 11/19/24 07:50 Pulse Ox 92 L 11/19/24 08:16 FiO2 21 11/17/24 11:14 Intake & Output 11/18/24 11/19/24 11/19/24 18:59 06:59 18:59 Output Total 60 0 Balance -60 0 Weight 60.1 kg Output: Chest Tube Drainage 60 0 Chest Tube Right Upper 60 0 Posterior Chest Other: Voiding Method Bedside Commode Bedside Commode # Voids 1 # Bowel Movements 1 - Labs CBC & Chem 7: 11/19/24 09:35 11/19/24 09:35 Labs: Abnormal Lab Results - Last 24 Hours (Table) 11/18/24 11/18/24 Range/Units 08:06 12:34 WBC 16.41 H (4.50-10.00) 10*3/uL RBC 3.59 L (4.10-5.20) 10*6/uL Hgb 10.8 L (12.0-15.0) g/dL Hct 31.0 L (37.2-46.3) % Plt Count 526 H (140-440) 10*3/uL Immature Gran # 0.25 H (0.00-0.04) 10*3/uL Neutrophils # 13.02 H (1.80-7.70) 10*3/uL Monocytes # 1.27 H (0.20-1.00) 10*3/uL Eosinophils # 0.03 L (0.04-0.35) 10*3/uL Sodium 135 L (137-145) mmol/L Potassium 5.4 H (3.5-5.1) mmol/L Chloride 111 H (98-107) mmol/L Carbon Dioxide 19 L (22-30) mmol/L BUN 6 L (7-17) mg/dL Calcium 7.4 L (8.4-10.2) mg/dL Microbiology - Last 24 Hours (Table) 11/14/24 11:23 Gram Stain - Final Pleural Fluid Body Fluid Culture - Final Assessment and Plan Time with Patient: Less than 30
--- NOTE | 2024-11-19 14:22 | P.PN ---
Subjective Progress Note Date: 11/19/24 Principal diagnosis: Reason for follow-up is pneumonia/empyema Patient is a 69-year-old female with a past medical history significant for ulcer Raynaud's phenomena and osteoporosis presenting to the hospital for evaluation of right-sided chest pain and cough, patient be diagnosed with right-sided effusion history of empyema and pneumonia prompted this consultation. On today's evaluation that is 11/19/2024, Patient is afebrile patient is currently on 2 L nasal oxygen and denies having any shortness of breath, the patient denies any chest pain or any worsening cough, the patient denies any nausea vomiting did not have any abdominal pain and no diarrhea. Patient white count is down to 14.05, creatinine 0.58 Objective - Vital Signs Vital signs: Vital Signs Temp 98.0 F 11/19/24 07:50 Pulse 102 H 11/19/24 11:23 Resp 16 11/19/24 07:50 BP 104/70 11/19/24 07:50 Pulse Ox 92 L 11/19/24 08:16 FiO2 21 11/17/24 11:14 Intake & Output 11/18/24 11/19/24 11/19/24 18:59 06:59 18:59 Output Total 60 0 0 Balance -60 0 0 Weight 60.1 kg Output: Chest Tube Drainage 60 0 0 Chest Tube Right Upper 60 0 0 Posterior Chest Other: Voiding Method Bedside Commode Bedside Commode Bedside Commode # Voids 1 # Bowel Movements 1 - Exam GENERAL DESCRIPTION: An elderly female lying in bed in no distress RESPIRATORY SYSTEM: Unlabored breathing , decreased breath sounds at bases HEART: S1 S2 regular rate and rhythm , ABDOMEN: Soft , no tenderness EXTREMITIES: No edema feet - Labs CBC & Chem 7: 11/19/24 09:35 11/19/24 09:35 Labs: Abnormal Lab Results - Last 24 Hours (Table) 11/19/24 11/19/24 Range/Units 09:35 09:35 WBC 14.05 H (4.50-10.00) 10*3/uL RBC 3.64 L (4.10-5.20) 10*6/uL Hgb 10.8 L (12.0-15.0) g/dL Hct 32.2 L (37.2-46.3) % Plt Count 675 H (140-440) 10*3/uL MPV 8.8 L (9.5-12.2) fL Immature Gran # 0.14 H (0.00-0.04) 10*3/uL Neutrophils # 11.50 H (1.80-7.70) 10*3/uL Sodium 136 L (137-145) mmol/L Chloride 110 H (98-107) mmol/L Carbon Dioxide 20 L (22-30) mmol/L Glucose 124 H (74-99) mg/dL Calcium 7.4 L (8.4-10.2) mg/dL Magnesium 1.5 L (1.6-2.3) mg/dL Assessment and Plan (1) Sepsis Current Visit: Yes Status: Acute Code(s): A41.9 - SEPSIS, UNSPECIFIED ORGANISM SNOMED Code(s): 75148980 (2) Empyema lung Current Visit: Yes Status: Acute Code(s): J86.9 - PYOTHORAX WITHOUT FISTULA SNOMED Code(s): 99611599 (3) Pneumonia Current Visit: Yes Status: Acute Code(s): J18.9 - PNEUMONIA, UNSPECIFIED ORGANISM SNOMED Code(s): 661030339 Plan: 1patient presented to hospital with sepsis in this patient who did have tachypnea and tachycardia elevated white count as well as elevated lactic acid meeting criteria for SIRS/sepsis source is right-sided pneumonia with a question of postobstructive and a possible component of empyema likely community-acquired pathogen in this patient with no history of recent antibiotic exposure or flulike symptoms 2-patient is afebrile pleural fluid culture currently growing Streptococcus intermedius micro lab unable to do sensitivity as reported organism not growing 3patient is afebrile white count was down to 14,000 today, patient will be treated with Rocephin 2 g daily and oral Flagyl, order midline for outpatient antibiotic Dictation was produced using [employer] ([employer]) dictation software. please excuse any grammatical, word or spelling errors. Time with Patient: Less than 30
--- NOTE | 2024-11-19 15:16 | US ---
EXAMINATION TYPE: US venous doppler duplex LE BI DATE OF EXAM: 11/19/2024 3:06 PM COMPARISON: NONE CLINICAL INDICATION: Female, 69 years old with history of edema and pain; Edema and pain, Pain TECHNIQUE: The lower extremity deep venous system is examined utilizing real time linear array sonog adrianne with graded compression, color doppler sonography, and spectral doppler. SIDE PERFORMED: Bilateral FINDINGS: VESSELS IMAGED: Common Femoral Vein Deep Femoral Vein Greater Saphenous Vein * Femoral Vein Popliteal Vein Small Saphenous Vein * Proximal Calf Veins (* superficial vessels) Right Leg: Visualized portions appeared negative for DVT, Color Doppler imaging shows patency of the vessels. Spectral waveforms are within normal limits. Compressions at femoral veins not obtained du e to extensive edema. Left Leg: Visualized portions appeared negative for DVT, Color Doppler imaging shows patency of the vessels. Spectral waveforms are within normal limits. Compressions at femoral veins and popliteal ve ins not obtained due to extensive edema. IMPRESSION: No ultrasound evidence for deep venous thrombosis. [facility], , 11/19/2024 3:13 PM
[2024-11-19] MEDS: HEPARIN SODIUM,PORCINE 5,000 UNIT/ML 1 ML VIAL SQ SCH ×2 (16:16→20:08)
--- NOTE | 2024-11-20 07:00 | XR ---
EXAMINATION TYPE: XR chest 1V portable DATE OF EXAM: 11/20/2024 CLINICAL INDICATION: Female, 69 years old with history of Empyema, progress study. TECHNIQUE: Single AP portable upright view of the chest is obtained. COMPARISON: Chest x-ray from one day earlier FINDINGS: Stable right basilar pleural pigtail drainage catheter. Persistent moderate size right-blanca ed pleural effusion and small left pleural effusion. Upper lungs remain clear. Cardiac silhouette siz e is stable and within normal limits with atherosclerotic thoracic aorta. Osseous structures are inta ct. IMPRESSION: Right basilar pleural pigtail drainage catheter with a moderate-sized right-sided pleural fluid collection and associated right basilar opacity favoring compressive atelectasis. Stable small left pleural effusion. No significant change from one day earlier. [facility], , 11/20/2024 6:58 AM
[2024-11-20] MEDS ORDERED: RX INFO: IV CONTRAST WAS GIVEN 1 EACH MISC MISCELLANE PRN (07:43)
[2024-11-20 07:51] LABS: Basophils # (A) 0.05 10*3/uL (0.00-0.10); Basophils % (A) 0.4 %; Eosinophils # (A) 0.13 10*3/uL (0.04-0.35); HCT 29.3 % (37.2-46.3); HGB 9.8 g/dL (12.0-15.0); Immature Platelet Fraction 3.4 % (1.1-6.1); Lymphocytes # (A) 1.36 10*3/uL (0.90-5.00); Lymphocytes % (A) 10.9 %; MCH 29.9 pg (27.0-32.0); MCHC 33.4 g/dL (32.0-37.0); MCV 89.3 fL (80.0-97.0); Mean Platelet Volume 10.3 fL (9.5-12.2); Monocytes # (A) 0.95 10*3/uL (0.20-1.00); Monocytes % (A) 7.6 %; Neutrophils # (A) 9.92 10*3/uL (1.80-7.70); Neutrophils % (A) 79.1 %; RBC 3.28 10*6/uL (4.10-5.20); RDW 16.6 % (11.5-14.5); WBC 12.53 10*3/uL (4.50-10.00)
[2024-11-20 07:59] LABS: African American GFR (CKD) >90 (>60 ml/min/1.73 sqM); Anion Gap 5 mmol/L; Blood Urea Nitrogen 7 mg/dL (7-17); Carbon Dioxide 20 mmol/L (22-30); Chloride 110 mmol/L (98-107); Glucose 66 mg/dL (74-99); Non-African American GFR(CKD) >90 (>60 ml/min/1.73 sqM); Potassium 4.4 mmol/L (3.5-5.1); Sodium 135 mmol/L (137-145)
--- NOTE | 2024-11-20 08:10 | P.PN ---
Subjective Progress Note Date: 11/20/24 Principal diagnosis: Right basilar masslike consolidation, right loculated effusion, leukocytosis, hyponatremia. History of gastric ulcer, raynaud's, distant remote history of smoking POD #6 reinsertion of right pigtail catheter by interventional radiology The patient was seen and examined this morning sitting up in a recliner eating breakfast in no acute distress. Patient received no lytics yesterday as output had decreased significantly, no output in the last 24 hours. Patient appears to be doing well, states she feels much better than when she came in, has been able to be somewhat ambulatory with walker and tolerating okay. Chest x-ray reviewed. Objective - Vital Signs Vital signs: Vital Signs Temp 98.0 F 11/19/24 20:21 Pulse 100 11/20/24 07:55 Resp 18 11/20/24 04:32 BP 101/67 11/20/24 04:32 Pulse Ox 99 11/20/24 04:32 FiO2 21 11/17/24 11:14 Intake & Output 11/19/24 11/20/24 11/20/24 18:59 06:59 18:59 Intake Total 240 Output Total 0 0 Balance 0 240 Weight 59.9 kg Intake: Oral 240 Output: Chest Tube Drainage 0 0 Chest Tube Right Upper 0 0 Posterior Chest Other: Voiding Method Bedside Commode Bedside Commode # Voids 1 1 # Bowel Movements 1 - Exam CONSTITUTIONAL: Appears comfortable, cooperative, no acute distress RESPIRATORY: Lungs sounds diminished in the right base. Respirations even, nonlabored. Currently on 2 L nasal cannula with oxygen saturation 99%. Able to achieve 1000 mL on incentive spirometry. Strong cough. CARDIOVASCULAR: S1, S2 present. Regular rate and rhythm. Palpable peripheral pulses bilaterally. Bilateral lower extremity edema present. No calf pain or tenderness noted. SCDs present. GASTROINTESTINAL: Abdomen soft, nontender, nondistended. Active bowel sounds present 4 quadrants. Tolerating diet. Positive bowel movement 11/19 GENITOURINARY: Continues to void INTEGUMENTARY: Skin is warm and dry with evidence of good perfusion NEUROLOGIC: Cranial nerves II through XII intact MUSKULOSKELETAL: Able to move all extremities, strength equal bilaterally PSYCHIATRIC: Alert and oriented to person place and time INVASIVE LINES AND TUBES: Right sided pigtail present to continuous wall suction, no airleak present, no output in the last 24 hours - Allied health notes Allied health notes reviewed: nursing - Labs CBC & Chem 7: 11/20/24 06:36 11/20/24 06:36 Labs: Abnormal Lab Results - Last 24 Hours (Table) 11/19/24 11/19/24 11/20/24 Range/Units 09:35 09:35 06:36 WBC 14.05 H 12.53 H (4.50-10.00) 10*3/uL RBC 3.64 L 3.28 L (4.10-5.20) 10*6/uL Hgb 10.8 L 9.8 L (12.0-15.0) g/dL Hct 32.2 L 29.3 L (37.2-46.3) % Plt Count 675 H (140-440) 10*3/uL MPV 8.8 L (9.5-12.2) fL Immature Gran # 0.14 H 0.12 H (0.00-0.04) 10*3/uL Neutrophils # 11.50 H (1.80-7.70) 10*3/uL Sodium 136 L (137-145) mmol/L Chloride 110 H (98-107) mmol/L Carbon Dioxide 20 L (22-30) mmol/L Glucose 124 H (74-99) mg/dL Calcium 7.4 L (8.4-10.2) mg/dL Magnesium 1.5 L (1.6-2.3) mg/dL 11/20/24 Range/Units 06:36 WBC (4.50-10.00) 10*3/uL RBC (4.10-5.20) 10*6/uL Hgb (12.0-15.0) g/dL Hct (37.2-46.3) % Plt Count (140-440) 10*3/uL MPV (9.5-12.2) fL Immature Gran # (0.00-0.04) 10*3/uL Neutrophils # (1.80-7.70) 10*3/uL Sodium 135 L (137-145) mmol/L Chloride 110 H (98-107) mmol/L Carbon Dioxide 20 L (22-30) mmol/L Glucose 66 L (74-99) mg/dL Calcium 7.0 L (8.4-10.2) mg/dL Magnesium (1.6-2.3) mg/dL - Imaging and Cardiology Chest x-ray: report reviewed, image reviewed Assessment and Plan Assessment: Right basilar masslike consolidation, malignancy versus infection Right loculated effusion, complicated, related to infection versus cancer Leukocytosis Hyponatremia Chest pain, cough with sputum secondary to above Recent 8 pound weight loss over 6 weeks History of gastric ulcer Raynaud's Distant remote history of smoking Plan: Continue pigtail catheter on the right, no further lytic installation as patient did not have a good response in the last [address] of the chest to evaluate pleural fluid collection Patient is not a surgical candidate Antibiotics per infectious disease Incentive spirometry ordered and should be encouraged Increase activity as tolerated Medical management of other comorbidities per internal medicine, pulmonology, infectious disease More recommendations to follow
[2024-11-20 10:14] LABS: Platelet Count 486 10*3/uL (140-440); RBC Morphology Normal
--- NOTE | 2024-11-20 10:45 | CT ---
EXAMINATION TYPE: CT chest wo con DATE OF EXAM: 11/20/2024 COMPARISON: Chest CT November 11, 2024 CLINICAL INDICATION: Female, 69 years old with history of loculated effusion, Loculated effusion. TECHNIQUE: CT scan of the thorax is performed without IV contrast. CT DLP: 165.7 mGycm. Automated Exposure Control for Dose Reduction was Utilized. FINDINGS: LUNGS: Moderate to advanced underlying emphysematous change bilaterally is redemonstrated. New right basilar percutaneous pigtail drainage catheter with persistent moderate sized nonsimple right basilar pleural fluid collection and more central right lung masslike consolidation extending from the hilum . Findings are more prominent or worse from prior CT. There is new tiny left pleural effusion. Left l lilli otherwise remains clear. HEART: Size within normal limits. Severe coronary artery calcifications present. MEDIASTINUM: Lack of IV contrast is noted to limit evaluation for mediastinal and especially hilar ad enopathy. There are no definitive greater than 1 cm mediastinal lymph nodes. No pericardial effusio n is seen. OTHER: Prominent Schmorl node superior T11 endplate is redemonstrated. IMPRESSION: Persistent and slightly more prominent moderate size right basilar nonsimple pleural flui d collection despite pleural pigtail drainage catheter placement. More prominent associated right bas ilar consolidation/atelectasis. Consider surgical debridement/treatment. [facility], , 11/20/2024 10:42 AM
[2024-11-20] MEDS: FUROSEMIDE 10 MG/ML 2 ML VIAL IV SCH (14:25)
[2024-11-20] MEDS: metroNIDAZOLE 500 MG TAB PO SCH (15:59)
--- NOTE | 2024-11-20 17:11 | P.PN ---
Subjective Progress Note Date: 11/20/24 69-year-old female presenting the emergency department last night with a chief complaint of right upper quadrant abdominal pain with radiation to the right back. Ongoing for the last 2 days. Workup in the emergency department including abdominal/pelvis CT which does not show any acute intra-abdominal process. Remarkable for right middle lobe cystic lesion and moderate to large right-sided pleural effusion. Follow-up chest CTA did not show any evidence of pulmonary embolism. Right basilar masslike consolidation measuring 5.4 x 5.8 cm, concerning for possible malignancy. Additional surrounding airspace consolidation, possibly superimposed pneumonia. Large right-sided pleural effus ion noted. Severe centrilobular emphysematous changes. Labs remarkable for a CBC with a WBC count of 62.7, hemoglobin 13.4, platelets 801. CMP with a sodium 130, potassium 5, chloride 95, serum bicarb 24, BUN 28, creatinine 0.88, glucose 105. Lactate 2.7 down to 1.1. AST 57, ALT 26, ALP 268. Troponins less than 0.012. NT proBNP 467. Lipase 26. Patient currently being evaluated in emergency department. She is resting comfortably on 2 L/min nasal cannula. SpO2 reading 98%. Again endorses above-mentioned right upper quadrant pain with radiation to the right thoracic level back. Previously, rated 9 out of 10 on a 10 point numerical scale. Started approximately 2 days ago. Denies any nausea, vomiting, change in bowel movements, diarrhea. Does endorse previous congested cough without much sputum production. Denies any significant purulent sputum or hemoptysis. Denies any fevers, chills. No previously diagnosed COPD. She is a former tobacco smoker, quit approximately 9 years ago. Prior to this, she smoked 1 pack, which lasted for almost a month. No family or personal history of lung cancer. No significant unintentional weight loss. No recent outpatient treatments for pneumonias. Her primary care provider is Dr. Muñoz. Given empiric doses of azithromycin, Rocephin, Flagyl, and vancomycin in the ED. Afebrile. Normal saline infusing at 130 mL/h. Nontoxic appearance. Hemodynamic stable. The patient is seen today November 08, 2024 in follow-up on the regular medical floor. She is currently sitting up in bed. Awake and alert in no acute distress. Maintaining good O2 saturations in the 90s on 2 L/min per nasal cannula. She did have a right sided pigtail catheter placed yesterday. She also had a thoracentesis performed yesterday. She continues with hazy yellow output. Her pleural fluid was exudate with a protein of 3.6 and an LDH greater than 2500. Procalcitonin was 2.74. She is currently on Unasyn. Chest x-ray continues to show ongoing moderate to large right pleural effusion with underlying atelectasis and/or consolidation. Minimally decreased compared to previous. Pleural fluid cultures are pending. White count 26.2. Hemoglobin 11.2. Platelets 544. Sodium 134. Potassium 3.7. Bicarb 23. BUN 14. Creatinine 0.52. Viral screen was negative for influenza A/B, RSV, COVID. The patient is seen today November 09, 2024 in follow-up on the regular medical floor. She is awake and alert in no acute distress. She did have some issues with desaturations earlier this morning with minimal activity. Chest x-ray shows worsening left-sided pleural effusion which is now moderate. She is currently maintaining good O2 saturations in the mid 90s on 5 L high flow nasal cannula. She is afebrile. Hemodynamically stable. She did have lytics instilled into the pigtail catheter yesterday. A total of 1420 mL have been returned since. Additional lytics will be instilled today per CT service. She continues to work well with the incentive spirometer. She remains on Unasyn. Pleural fluid cultures pending. Cytology pending. White count 38.6. Hemoglobin 11.5. Platelets 605. Seen today on 11/10/2024, patient is feeling better, breathing easier, chest x- ray is not showing much improvement on the right side pleural effusion. Still undergoing lytic therapy. May have to consider repeat CT of the chest in the next couple of days. Clinically however the patient is doing well, remains on antibiotics, cytology from the pleural effusion came back negative, cultures remain negative, still the differential diagnosis includes malignancy and/or parapneumonic complicated pleural effusion. Patient was seen today on 11/11/2024, patient is doing well, unfortunately patient pulled out her pigtail catheter accidentally, and no more lytic therapy could be given for this patient at this point, the chest x-ray is showing i mprovement, but her initial CT of the chest raised the possibility of malignancy/lung mass, I will go ahead and recommend repeat CT of the chest now for follow-up on the initially abnormal CT of the chest. Clinically I did not believe the patient had lung mass, I felt she had masslike consolidation. And may have resolved based on the fact that the patient has been receiving lytic therapy for her complicated right-sided pleural effusion. The pleural effusion was negative for malignancy. And it was negative for active infection as the cultures have been negative. Patient was seen today on 11/12/2024, patient seems to be comfortable, not in distress, continues to have leukocytosis with WBC count of 24,000, continues to have a right middle lobe cystic lesion, exact etiology is not clear, strongly doubt malignancy I believe is most likely a bulla filled with fluid. Or could represent retained secretions and airway. CT of the chest showed hydropneumothorax, I believe the patient may benefit eventually either from placement of pigtail catheter again or decortication if thoracic surgery is willing. May also require bronchoscopy and biopsy or evaluation of the right middle lobe. At this point in time we are continuing antibiotics, and we need to readdress that pigtail catheter again on Wednesday. Patient was seen today on 11/13/2024, patient is comfortable, not in distress, on nasal cannula patient is supposed to have placement of pigtail catheter again tomorrow for lytic therapy. In the meantime remains on antibiotics, continues to have loculated pleural effusion, and the fluid came back positive for Streptococcus intermedius. Continues to have leukocytosis with WC count of 24.0 hemoglobin 10.3. Patient is on 2 L nasal cannula and O2 sat is 91 to 94% Progress note dated November 14, 2024. 69-year-old female seen today in room 360. She is awake and alert. She is resting comfortably in bed. The patient currently is on Rocephin and Flagyl. She is on 2 L nasal cannula. No IV fluids. The pigtail catheter will be replaced today. She continues to be followed by cardiothoracic surgery. Laboratory data includes a white count of 18.8, hemoglobin 10.6, hematocrit 31. 4, and a platelet count of 506,000. Sodium 134, potassium 3.8, chlorides 106, CO2 22, BUN 7, creatinine 0.49. Glucose is 70. Albumin 1.7. Pleural fluid cultures were positive for Streptococcus intermedius. Chest x-ray shows a persistent right basilar opacity/effusion. Progress note dated November 15, 2024. 69-year-old female seen today in room 360. The patient is resting comfortably in bed. She is currently on 2 L. No IV fluids. She has a right pigtail catheter in place. She is receiving both Rocephin and Flagyl, for streptococcal infection. The patient is receiving tPA, and alpha dornase, as per cardiothoracic surgery. Clinically, she is feeling well. She is awake and alert. No respiratory distress. No new laboratory data today. Chest x-ray shows a right basilar pleural catheter. Right sided pleural effusion has diminished. Progress note dated November 16, 2024. 69-year-old female seen today in room 360. She is sitting up in bed. She is alert and awake. No acute distress. She is continues on nasal O2 at 2 L. She is getting saline at 10 cc an hour. Her right pigtail catheter continues to function. She did receive tPA and alpha dornase today, via cardiothoracic aden evaristo. The patient continues on Rocephin and Flagyl. No new laboratory data today. Chest x-ray today, November 16, shows diminished right lower lobe fluid collection. Drainage catheter, is noted. Progress note dated November 17, 2024. 69-year-old female seen again in room 360. She sitting in the chair next to the hospital bed. She is on room air. She continues on Rocephin and Flagyl. The patient did receive tPA, and alpha dornase today, administered by cardiothoracic surgery. Her chest x-ray continues to show improvement. Clinically, she is very stable. She has a right sided pigtail catheter in place. White count of 17.5, hemoglobin 10.5, hematocrit 30.8, platelet count 703,000. Sodium 133, potassium 4.1, chlorides 108, CO2 23, BUN 3, creatinine 0.56. Glucose is 100. Calcium is 7.0. Albumin is 1.7. Pleural fluid back from November 07, is positive for Streptococcus species. Chest x-ray shows improving right-sided opacities. Progress note dated November 18, 2024. 69-year-old female seen today in room 360. The patient is resting comfortably in bed. She is awake and alert. She is on room air. She is getting saline at 50 cc an hour. Cardiothoracic surgery is not planning to place any lytics, through her right sided pigtail catheter today. Currently, the patient is without complaints. Current laboratory data includes a sodium 135, potassium 5.4, chlorides 111, CO2 19, BUN 6, creatinine 0.57. Calcium is 7.4. Pleural fluid cultures were positive for Streptococcus intermedius. Chest x-ray is essentially unchanged. Progress note dated November 19, 2024. 69-year-old female seen today in room 360. She is lying in bed. She will not receive any tPA or alpha dornase today. She is on 2 L. No IV fluids. Clinically, she looks comfortable. She is in no acute distress. She is not coughing or short of breath. Today's labs include a white count of 14.1, hemoglobin 10.8, hematocrit 32.2, and a platelet count of 675,000. Sodium 136, potassium 4.1, chlorides 110, CO2 20, BUN 7, creatinine 0.58. Pleural fluid cultures were positive for Streptococcus intermedius. Chest x-ray reveals a right sided pleural effusion. Right pigtail catheter is unchanged. Some atelectasis is noted at the bases as well. On 11/20/2024, the patient is being seen for a follow-up. The patient remains on 2 L of oxygen by nasal cannula with pulse ox of 98%. The white cell count is at 12.5 with a hemoglobin 9.8 and the patient remains on IV Rocephin regarding the streptococcal pneumonia/empyema.. Noted the patient had an initial thoracentesis and subsequently the patient had a pigtail catheter inserted into the right hemothorax and the patient has been receiving thrombolytic therapy t hrough the pigtail catheter. Nevertheless, the patient continued to have persistent opacification of the right lung base. The right-sided pigtail catheter is attached to continuous wall suction. No evidence of any air leak and output is minimal at this point in time. A follow-up CAT scan of the chest was done. I reviewed the CAT scan of the chest and the overall progression is suboptimal as the patient continues to have persistent and prominent moderate- sized loculated right-sided pleural effusion in addition to right lower lobe consolidation. There is also significant atelectatic changes lung bases specially on the right. The patient's white cell count is at 12.5 with a hemoglobin 9.8 and a platelet count of 486. BUN is at 7 with a creatinine of 0.5 and a sodium levels at 135. Objective - Vital Signs Vital signs: Vital Signs Temp 97.9 F 11/20/24 07:58 Pulse 98 11/20/24 11:27 Resp 18 11/20/24 07:58 BP 88/56 11/20/24 07:58 Pulse Ox 96 11/20/24 07:58 FiO2 21 11/17/24 11:14 Intake & Output 11/19/24 11/20/24 11/20/24 18:59 06:59 18:59 Intake Total 240 150 Output Total 0 0 Balance 0 240 150 Weight 59.9 kg Intake: Oral 240 150 Output: Chest Tube Drainage 0 0 Chest Tube Right Upper 0 0 Posterior Chest Other: Voiding Method Bedside Commode Bedside Commode Bedside Commode # Voids 1 1 # Bowel Movements 1 - Exam CONSTITUTIONAL: Appears comfortable, cooperative, no acute distress RESPIRATORY: Lungs sounds diminished in the right base. Respirations even, nonlabored. Currently on 2 L nasal cannula with oxygen saturation 99%. Able to achieve 1000 mL on incentive spirometry. Strong cough. CARDIOVASCULAR: S1, S2 present. Regular rate and rhythm. Palpable peripheral pulses bilaterally. Bilateral lower extremity edema present. No calf pain or tenderness noted. SCDs present. GASTROINTESTINAL: Abdomen soft, nontender, nondistended. Active bowel sounds present 4 quadrants. Tolerating diet. Positive bowel movement GENITOURINARY: Continues to void INTEGUMENTARY: Skin is warm and dry with evidence of good perfusion NEUROLOGIC: Cranial nerves II through XII intact MUSKULOSKELETAL: Able to move all extremities, strength equal bilaterally PSYCHIATRIC: Alert and oriented to person place and time INVASIVE LINES AND TUBES: Right sided pigtail present to continuous wall suction, no airleak present, no output in the last 24 hours - Labs CBC & Chem 7: 11/20/24 06:36 11/20/24 06:36 Labs: Abnormal Lab Results - Last 24 Hours (Table) 11/20/24 11/20/24 Range/Units 06:36 06:36 WBC 12.53 H (4.50-10.00) 10*3/uL RBC 3.28 L (4.10-5.20) 10*6/uL Hgb 9.8 L (12.0-15.0) g/dL Hct 29.3 L (37.2-46.3) % Plt Count 486 H (140-440) 10*3/uL Immature Gran # 0.12 H (0.00-0.04) 10*3/uL Neutrophils # 9.92 H (1.80-7.70) 10*3/uL Sodium 135 L (137-145) mmol/L Chloride 110 H (98-107) mmol/L Carbon Dioxide 20 L (22-30) mmol/L Glucose 66 L (74-99) mg/dL Calcium 7.0 L (8.4-10.2) mg/dL Assessment and Plan Plan: Right sided streptococcal pneumonia with empyema. The patient continues to have a masslike consolidation in the right lung base. Malignancy is doubtful at this stage. Complicated right sided pleural effusion/exudate, fluid positive for Streptococcus intermedius, currently with pigtail catheter in place. The output from the pigtail is minimal and repeat chest CT that was done on 11/20/2024 shows persistent loculated moderate-sized right-sided pleural effusion in addition to persistent consolidation and atelectatic change in the right lung base and response to thrombolytic therapy via pigtail catheter has been suboptimal. History of reinsertion of pigtail catheter, November 14, 2024. Status post right-sided thoracentesis. Acute hypoxemic respiratory failure, currently on 2 L of oxygen by nasal cannula Acute leukocytosis, secondary to right pleural space infection. The white cell count is stable Hyponatremia, recovered Raynaud's disease Remote history of smoking History of peptic ulcer disease Plan Continue pigtail catheter on the right, no further lytic installation as patient did not have a good response in the last 24 hours I reviewed the CAT scan of the chest. Going to discuss this with the cardiothoracic surgeon. The option is to insert another pigtail catheter versus chest tube versus taking the patient for surgical thoracoscopic evaluation of the right hemithorax and possibly decortication. The patient was thought to be quite frail for this type of surgical procedure. However, I do not see any progress and in fact the CAT scan findings are essentially unchanged and aden gical option may need to be considered. Continue IV Rocephin Incentive spirometer Monitor white cell count Hemodynamically stable Currently on 2 L of O2 nasal cannula Will continue to follow
--- NOTE | 2024-11-20 22:24 | PN ---
PROGRESS NOTE DATE OF SERVICE: 11/20/2024 CHIEF COMPLAINT: Right pleural effusion with right lower lobe lesion. HISTORY OF PRESENT ILLNESS: This lady is doing fairly well. Catheter has been removed from the right chest. PHYSICAL EXAMINATION: GENERAL: She is pale. CHEST: Demonstrates breath sounds bilaterally with decreased at the right base. CARDIAC: Exam is normal. IMPRESSION: 1. Right lower lobe lesion with recurrent right pleural effusion. 2. Hepatic lesion. PLAN: She continues to undergo further evaluation, tried to determine the cause of the cystic lesion in the right lower lobe. MMODL / IJN: [id number] /
--- NOTE | 2024-11-21 07:04 | XR ---
EXAMINATION TYPE: XR chest 1V portable DATE OF EXAM: 11/21/2024 CLINICAL INDICATION: Female, 69 years old with history of Empyema, progress study. TECHNIQUE: Single AP portable upright view of the chest is obtained. COMPARISON: Chest CT and chest x-ray from one day earlier FINDINGS: Stable right basilar pleural pigtail drainage catheter. Persistent moderate size right-blanca ed pleural effusion and small to tiny left pleural effusion. Upper lungs remain clear. Cardiac silhou ette size is stable and within normal limits with atherosclerotic thoracic aorta. Osseous structures are intact. IMPRESSION: Right basilar pleural pigtail drainage catheter with moderate-size right-sided pleural f luid collection and associated right basilar opacity favoring compressive atelectasis. Stable small t o tiny size left pleural effusion. No significant change from one day earlier. [facility], , 11/21/2024 7:01 AM
--- NOTE | 2024-11-21 09:09 | P.PN ---
Subjective Progress Note Date: 11/21/24 Principal diagnosis: Right basilar masslike consolidation, right loculated effusion, leukocytosis, hyponatremia. History of gastric ulcer, raynaud's, distant remote history of smoking POD #7 reinsertion of right pigtail catheter by interventional radiology The patient was seen and examined this morning sitting up in a recliner eating breakfast in no acute distress. Patient received no lytics for the last 2 days as output had decreased significantly, no output in the last 24 hours. Patient appears to be doing well, states she feels much better than when she came in, has been able to be somewhat ambulatory with walker and tolerating okay. Chest x-ray, CT scan reviewed. Unfortunately patient has had continued right sided effusion despite lytics and pigtail catheter. Will plan for surgical decortication this Wednesday by Dr. Neal. Discussed with the patient. Objective - Vital Signs Vital signs: Vital Signs Temp 97.6 F 11/21/24 08:00 Pulse 90 11/21/24 08:02 Resp 18 11/21/24 08:00 BP 96/64 11/21/24 08:00 Pulse Ox 96 11/21/24 08:00 FiO2 21 11/17/24 11:14 Intake & Output 11/20/24 11/21/24 11/21/24 18:59 06:59 18:59 Intake Total 537 20 240 Output Total 500 300 Balance 37 -280 240 Weight 6 kg Intake: IV 20 Invasive Line 5 20 Oral 537 240 Output: Chest Tube Drainage 0 0 Chest Tube Right Upper 0 0 Posterior Chest Urine 500 300 Other: Voiding Method Bedside Commode Bedside Commode # Voids 5 - Exam CONSTITUTIONAL: Appears comfortable, cooperative, no acute distress RESPIRATORY: Lungs sounds diminished in the right base. Respirations even, n onlabored. Currently on 2 L nasal cannula with oxygen saturation 96%. Able to achieve 1000 mL on incentive spirometry. Strong cough. CARDIOVASCULAR: S1, S2 present. Regular rate and rhythm. Palpable peripheral pulses bilaterally. Bilateral lower extremity edema present. No calf pain or tenderness noted. SCDs present. GASTROINTESTINAL: Abdomen soft, nontender, nondistended. Active bowel sounds present 4 quadrants. Tolerating diet. Positive bowel movement 11/19 GENITOURINARY: Continues to void INTEGUMENTARY: Skin is warm and dry with evidence of good perfusion NEUROLOGIC: Cranial nerves II through XII intact MUSKULOSKELETAL: Able to move all extremities, strength equal bilaterally PSYCHIATRIC: Alert and oriented to person place and time INVASIVE LINES AND TUBES: Right sided pigtail present to continuous wall suction, no airleak present, no output in the last 24 hours - Allied health notes Allied health notes reviewed: nursing - Labs CBC & Chem 7: 11/20/24 06:36 11/20/24 06:36 Labs: Abnormal Lab Results - Last 24 Hours (Table) 11/20/24 Range/Units 06:36 Plt Count 486 H (140-440) 10*3/uL Neutrophils # 9.92 H (1.80-7.70) 10*3/uL Microbiology - Last 24 Hours (Table) 11/07/24 09:02 Acid Fast Bacilli Smear - Preliminary Pleural Fluid Acid Fast Bacilli Culture - Preliminary - Imaging and Cardiology Chest x-ray: report reviewed, image reviewed Assessment and Plan Assessment: Right basilar masslike consolidation, malignancy versus infection Right loculated effusion, complicated, related to infection versus cancer Leukocytosis Hyponatremia Chest pain, cough with sputum secondary to above Recent 8 pound weight loss over 6 weeks History of gastric ulcer Raynaud's Distant remote history of smoking Plan: Continue pigtail catheter on the right, will instill lytics today Our plan is for video-assisted thoracoscopy with decortication by Dr. Neal on Sunday, November 24, 2024 N.p.o. after midnight on Wednesday Antibiotics per infectious disease Incentive spirometry ordered and should be encouraged Increase activity as tolerated Medical management of other comorbidities per internal medicine, pulmonology, infectious disease More recommendations to follow
[2024-11-21] MEDS: ALTEPLASE 10 MG in SODIUM CHLORIDE 0.9% 50 ML IRRIGATION ONE (10:30)
[2024-11-21] MEDS: DORNASE ALFA 5 MG in SODIUM CHLORIDE 0.9% 50 ML IRRIGATION ONE (10:30)
--- NOTE | 2024-11-21 14:49 | P.PN ---
Subjective Progress Note Date: 11/21/24 69-year-old female presenting the emergency department last night with a chief complaint of right upper quadrant abdominal pain with radiation to the right back. Ongoing for the last 2 days. Workup in the emergency department including abdominal/pelvis CT which does not show any acute intra-abdominal process. Remarkable for right middle lobe cystic lesion and moderate to large right-sided pleural effusion. Follow-up chest CTA did not show any evidence of pulmonary embolism. Right basilar masslike consolidation measuring 5.4 x 5.8 cm, concerning for possible malignancy. Additional surrounding airspace consolidation, possibly superimposed pneumonia. Large right-sided pleural effus ion noted. Severe centrilobular emphysematous changes. Labs remarkable for a CBC with a WBC count of 62.7, hemoglobin 13.4, platelets 801. CMP with a sodium 130, potassium 5, chloride 95, serum bicarb 24, BUN 28, creatinine 0.88, glucose 105. Lactate 2.7 down to 1.1. AST 57, ALT 26, ALP 268. Troponins less than 0.012. NT proBNP 467. Lipase 26. Patient currently being evaluated in emergency department. She is resting comfortably on 2 L/min nasal cannula. SpO2 reading 98%. Again endorses above-mentioned right upper quadrant pain with radiation to the right thoracic level back. Previously, rated 9 out of 10 on a 10 point numerical scale. Started approximately 2 days ago. Denies any nausea, vomiting, change in bowel movements, diarrhea. Does endorse previous congested cough without much sputum production. Denies any significant purulent sputum or hemoptysis. Denies any fevers, chills. No previously diagnosed COPD. She is a former tobacco smoker, quit approximately 9 years ago. Prior to this, she smoked 1 pack, which lasted for almost a month. No family or personal history of lung cancer. No significant unintentional weight loss. No recent outpatient treatments for pneumonias. Her primary care provider is Dr. Muñoz. Given empiric doses of azithromycin, Rocephin, Flagyl, and vancomycin in the ED. Afebrile. Normal saline infusing at 130 mL/h. Nontoxic appearance. Hemodynamic stable. The patient is seen today November 08, 2024 in follow-up on the regular medical floor. She is currently sitting up in bed. Awake and alert in no acute distress. Maintaining good O2 saturations in the 90s on 2 L/min per nasal cannula. She did have a right sided pigtail catheter placed yesterday. She also had a thoracentesis performed yesterday. She continues with hazy yellow output. Her pleural fluid was exudate with a protein of 3.6 and an LDH greater than 2500. Procalcitonin was 2.74. She is currently on Unasyn. Chest x-ray continues to show ongoing moderate to large right pleural effusion with underlying atelectasis and/or consolidation. Minimally decreased compared to previous. Pleural fluid cultures are pending. White count 26.2. Hemoglobin 11.2. Platelets 544. Sodium 134. Potassium 3.7. Bicarb 23. BUN 14. Creatinine 0.52. Viral screen was negative for influenza A/B, RSV, COVID. The patient is seen today November 09, 2024 in follow-up on the regular medical floor. She is awake and alert in no acute distress. She did have some issues with desaturations earlier this morning with minimal activity. Chest x-ray shows worsening left-sided pleural effusion which is now moderate. She is currently maintaining good O2 saturations in the mid 90s on 5 L high flow nasal cannula. She is afebrile. Hemodynamically stable. She did have lytics instilled into the pigtail catheter yesterday. A total of 1420 mL have been returned since. Additional lytics will be instilled today per CT service. She continues to work well with the incentive spirometer. She remains on Unasyn. Pleural fluid cultures pending. Cytology pending. White count 38.6. Hemoglobin 11.5. Platelets 605. Seen today on 11/10/2024, patient is feeling better, breathing easier, chest x- ray is not showing much improvement on the right side pleural effusion. Still undergoing lytic therapy. May have to consider repeat CT of the chest in the next couple of days. Clinically however the patient is doing well, remains on antibiotics, cytology from the pleural effusion came back negative, cultures remain negative, still the differential diagnosis includes malignancy and/or parapneumonic complicated pleural effusion. Patient was seen today on 11/11/2024, patient is doing well, unfortunately patient pulled out her pigtail catheter accidentally, and no more lytic therapy could be given for this patient at this point, the chest x-ray is showing i mprovement, but her initial CT of the chest raised the possibility of malignancy/lung mass, I will go ahead and recommend repeat CT of the chest now for follow-up on the initially abnormal CT of the chest. Clinically I did not believe the patient had lung mass, I felt she had masslike consolidation. And may have resolved based on the fact that the patient has been receiving lytic therapy for her complicated right-sided pleural effusion. The pleural effusion was negative for malignancy. And it was negative for active infection as the cultures have been negative. Patient was seen today on 11/12/2024, patient seems to be comfortable, not in distress, continues to have leukocytosis with WBC count of 24,000, continues to have a right middle lobe cystic lesion, exact etiology is not clear, strongly doubt malignancy I believe is most likely a bulla filled with fluid. Or could represent retained secretions and airway. CT of the chest showed hydropneumothorax, I believe the patient may benefit eventually either from placement of pigtail catheter again or decortication if thoracic surgery is willing. May also require bronchoscopy and biopsy or evaluation of the right middle lobe. At this point in time we are continuing antibiotics, and we need to readdress that pigtail catheter again on Wednesday. Patient was seen today on 11/13/2024, patient is comfortable, not in distress, on nasal cannula patient is supposed to have placement of pigtail catheter again tomorrow for lytic therapy. In the meantime remains on antibiotics, continues to have loculated pleural effusion, and the fluid came back positive for Streptococcus intermedius. Continues to have leukocytosis with WC count of 24.0 hemoglobin 10.3. Patient is on 2 L nasal cannula and O2 sat is 91 to 94% Progress note dated November 14, 2024. 69-year-old female seen today in room 360. She is awake and alert. She is resting comfortably in bed. The patient currently is on Rocephin and Flagyl. She is on 2 L nasal cannula. No IV fluids. The pigtail catheter will be replaced today. She continues to be followed by cardiothoracic surgery. Laboratory data includes a white count of 18.8, hemoglobin 10.6, hematocrit 31. 4, and a platelet count of 506,000. Sodium 134, potassium 3.8, chlorides 106, CO2 22, BUN 7, creatinine 0.49. Glucose is 70. Albumin 1.7. Pleural fluid cultures were positive for Streptococcus intermedius. Chest x-ray shows a persistent right basilar opacity/effusion. Progress note dated November 15, 2024. 69-year-old female seen today in room 360. The patient is resting comfortably in bed. She is currently on 2 L. No IV fluids. She has a right pigtail catheter in place. She is receiving both Rocephin and Flagyl, for streptococcal infection. The patient is receiving tPA, and alpha dornase, as per cardiothoracic surgery. Clinically, she is feeling well. She is awake and alert. No respiratory distress. No new laboratory data today. Chest x-ray shows a right basilar pleural catheter. Right sided pleural effusion has diminished. Progress note dated November 16, 2024. 69-year-old female seen today in room 360. She is sitting up in bed. She is alert and awake. No acute distress. She is continues on nasal O2 at 2 L. She is getting saline at 10 cc an hour. Her right pigtail catheter continues to function. She did receive tPA and alpha dornase today, via cardiothoracic aden evaristo. The patient continues on Rocephin and Flagyl. No new laboratory data today. Chest x-ray today, November 16, shows diminished right lower lobe fluid collection. Drainage catheter, is noted. Progress note dated November 17, 2024. 69-year-old female seen again in room 360. She sitting in the chair next to the hospital bed. She is on room air. She continues on Rocephin and Flagyl. The patient did receive tPA, and alpha dornase today, administered by cardiothoracic surgery. Her chest x-ray continues to show improvement. Clinically, she is very stable. She has a right sided pigtail catheter in place. White count of 17.5, hemoglobin 10.5, hematocrit 30.8, platelet count 703,000. Sodium 133, potassium 4.1, chlorides 108, CO2 23, BUN 3, creatinine 0.56. Glucose is 100. Calcium is 7.0. Albumin is 1.7. Pleural fluid back from November 07, is positive for Streptococcus species. Chest x-ray shows improving right-sided opacities. Progress note dated November 18, 2024. 69-year-old female seen today in room 360. The patient is resting comfortably in bed. She is awake and alert. She is on room air. She is getting saline at 50 cc an hour. Cardiothoracic surgery is not planning to place any lytics, through her right sided pigtail catheter today. Currently, the patient is without complaints. Current laboratory data includes a sodium 135, potassium 5.4, chlorides 111, CO2 19, BUN 6, creatinine 0.57. Calcium is 7.4. Pleural fluid cultures were positive for Streptococcus intermedius. Chest x-ray is essentially unchanged. Progress note dated November 19, 2024. 69-year-old female seen today in room 360. She is lying in bed. She will not receive any tPA or alpha dornase today. She is on 2 L. No IV fluids. Clinically, she looks comfortable. She is in no acute distress. She is not coughing or short of breath. Today's labs include a white count of 14.1, hemoglobin 10.8, hematocrit 32.2, and a platelet count of 675,000. Sodium 136, potassium 4.1, chlorides 110, CO2 20, BUN 7, creatinine 0.58. Pleural fluid cultures were positive for Streptococcus intermedius. Chest x-ray reveals a right sided pleural effusion. Right pigtail catheter is unchanged. Some atelectasis is noted at the bases as well. On 11/20/2024, the patient is being seen for a follow-up. The patient remains on 2 L of oxygen by nasal cannula with pulse ox of 98%. The white cell count is at 12.5 with a hemoglobin 9.8 and the patient remains on IV Rocephin regarding the streptococcal pneumonia/empyema.. Noted the patient had an initial thoracentesis and subsequently the patient had a pigtail catheter inserted into the right hemothorax and the patient has been receiving thrombolytic therapy t hrough the pigtail catheter. Nevertheless, the patient continued to have persistent opacification of the right lung base. The right-sided pigtail catheter is attached to continuous wall suction. No evidence of any air leak and output is minimal at this point in time. A follow-up CAT scan of the chest was done. I reviewed the CAT scan of the chest and the overall progression is suboptimal as the patient continues to have persistent and prominent moderate- sized loculated right-sided pleural effusion in addition to right lower lobe consolidation. There is also significant atelectatic changes lung bases specially on the right. The patient's white cell count is at 12.5 with a hemoglobin 9.8 and a platelet count of 486. BUN is at 7 with a creatinine of 0.5 and a sodium levels at 135. On 11/21/2024, the patient is clinically stable. Repeat chest x-ray was done today and the findings are essentially unchanged the patient continues to have right basilar pleural pigtail drainage catheter with moderate-sized right-sided pleural fluid/consolidation and compressive atelectasis. The patient was given another dose of alteplase. Discussed the case with thoracic surgery and the patient is scheduled to undergo decortication on Wednesday. Meanwhile, the white cell count of 12.5 and hemoglobin 9.8 and platelet count of 486. Electrolytes are all stable. Creatinine is at 0.5. The patient remains on Flagyl and Rocephin. No altered mentation. No chest pain. No other new complaints othe rwise for now. Objective - Vital Signs Vital signs: Vital Signs Temp 97.6 F 11/21/24 08:00 Pulse 90 11/21/24 08:02 Resp 18 11/21/24 08:00 BP 96/64 11/21/24 08:00 Pulse Ox 96 11/21/24 08:00 FiO2 21 11/17/24 11:14 Intake & Output 11/20/24 11/21/24 11/21/24 18:59 06:59 18:59 Intake Total 537 20 240 Output Total 500 300 Balance 37 -280 240 Weight 6 kg Intake: IV 20 Invasive Line 5 20 Oral 537 240 Output: Chest Tube Drainage 0 0 Chest Tube Right Upper 0 0 Posterior Chest Urine 500 300 Other: Voiding Method Bedside Commode Bedside Commode # Voids 5 - Exam CONSTITUTIONAL: Appears comfortable, cooperative, no acute distress RESPIRATORY: Lungs sounds diminished in the right base. Respirations even, nonlabored. Currently on 2 L nasal cannula with oxygen saturation 99%. Able to achieve 1000 mL on incentive spirometry. Strong cough. CARDIOVASCULAR: S1, S2 present. Regular rate and rhythm. Palpable peripheral pulses bilaterally. Bilateral lower extremity edema present. No calf pain or tenderness noted. SCDs present. GASTROINTESTINAL: Abdomen soft, nontender, nondistended. Active bowel sounds present 4 quadrants. Tolerating diet. Positive bowel movement GENITOURINARY: Continues to void INTEGUMENTARY: Skin is warm and dry with evidence of good perfusion NEUROLOGIC: Cranial nerves II through XII intact MUSKULOSKELETAL: Able to move all extremities, strength equal bilaterally PSYCHIATRIC: Alert and oriented to person place and time INVASIVE LINES AND TUBES: Right sided pigtail present to continuous wall suction, no airleak present, no output in the last 24 hours - Labs CBC & Chem 7: 11/20/24 06:36 11/20/24 06:36 Labs: Microbiology - Last 24 Hours (Table) 11/07/24 09:02 Acid Fast Bacilli Smear - Preliminary Pleural Fluid Acid Fast Bacilli Culture - Preliminary Assessment and Plan Plan: Right sided streptococcal pneumonia with empyema. The patient continues to have a masslike consolidation in the right lung base. Malignancy is doubtful at this stage. Complicated right sided pleural effusion/exudate, fluid positive for Streptococcus intermedius, currently with pigtail catheter in place. The output from the pigtail is minimal and repeat chest CT that was done on 11/20/2024 shows persistent loculated moderate-sized right-sided pleural effusion in addition to persistent consolidation and atelectatic change in the right lung base and response to thrombolytic therapy via pigtail catheter has been suboptimal. History of reinsertion of pigtail catheter, November 14, 2024. Status post right-sided thoracentesis. Acute hypoxemic respiratory failure, currently on 2 L of oxygen by nasal cannula Acute leukocytosis, secondary to right pleural space infection. The white cell count is stable Hyponatremia, recovered Raynaud's disease Remote history of smoking History of peptic ulcer disease Plan Case was discussed with cardiothoracic surgery and the patient will need A thoracoscopic evaluation/drainage/decortication. Tentatively, the procedure is scheduled on 11/24/2024. Meanwhile, another alteplase treatment will be done today through the pigtail catheter. Continue pigtail catheter on the right I reviewed the CAT scan of the chest. Going to discuss this with the cardioth oracic surgeon. Continue IV Rocephin Incentive spirometer Monitor white cell count Hemodynamically stable Currently on 2 L of O2 nasal cannula Will continue to follow Time with Patient: Greater than 30
--- NOTE | 2024-11-21 15:39 | P.PN ---
Subjective Progress Note Date: 11/20/24 Principal diagnosis: Reason for follow-up is pneumonia/empyema Patient is a 69-year-old female with a past medical history significant for ulcer Raynaud's phenomena and osteoporosis presenting to the hospital for evaluation of right-sided chest pain and cough, patient be diagnosed with right-sided effusion history of empyema and pneumonia prompted this consultation. On today's evaluation that is 11/20/2024, patient has been afebrile, patient is breathing comfortably and is currently on 2 L, oxygen patient denies having any chest pain and cough has decreased in intensity, patient denies nausea vomiting or diarrhea and no abdominal pain. Patient white count is down to 12.53, creatinine 0.53 Objective - Vital Signs Vital signs: Vital Signs Temp 97.9 F 11/20/24 07:58 Pulse 100 11/20/24 12:00 Resp 18 11/20/24 12:00 BP 104/72 11/20/24 12:00 Pulse Ox 98 11/20/24 12:00 FiO2 21 11/17/24 11:14 Intake & Output 11/19/24 11/20/24 11/20/24 18:59 06:59 18:59 Intake Total 240 150 Output Total 0 0 0 Balance 0 240 150 Weight 59.9 kg Intake: Oral 240 150 Output: Chest Tube Drainage 0 0 0 Chest Tube Right Upper 0 0 0 Posterior Chest Other: Voiding Method Bedside Commode Bedside Commode Bedside Commode # Voids 1 1 # Bowel Movements 1 - Exam GENERAL DESCRIPTION: An elderly female lying in bed in no distress RESPIRATORY SYSTEM: Unlabored breathing , decreased breath sounds at bases HEART: S1 S2 regular rate and rhythm , ABDOMEN: Soft , no tenderness EXTREMITIES: No edema feet - Labs CBC & Chem 7: 11/20/24 06:36 11/20/24 06:36 Labs: Abnormal Lab Results - Last 24 Hours (Table) 11/20/24 11/20/24 Range/Units 06:36 06:36 WBC 12.53 H (4.50-10.00) 10*3/uL RBC 3.28 L (4.10-5.20) 10*6/uL Hgb 9.8 L (12.0-15.0) g/dL Hct 29.3 L (37.2-46.3) % Plt Count 486 H (140-440) 10*3/uL Immature Gran # 0.12 H (0.00-0.04) 10*3/uL Neutrophils # 9.92 H (1.80-7.70) 10*3/uL Sodium 135 L (137-145) mmol/L Chloride 110 H (98-107) mmol/L Carbon Dioxide 20 L (22-30) mmol/L Glucose 66 L (74-99) mg/dL Calcium 7.0 L (8.4-10.2) mg/dL Assessment and Plan (1) Sepsis Current Visit: Yes Status: Acute Code(s): A41.9 - SEPSIS, UNSPECIFIED ORGANISM SNOMED Code(s): 73923153 (2) Empyema lung Current Visit: Yes Status: Acute Code(s): J86.9 - PYOTHORAX WITHOUT FISTULA SNOMED Code(s): 56028839 (3) Pneumonia Current Visit: Yes Status: Acute Code(s): J18.9 - PNEUMONIA, UNSPECIFIED ORGANISM SNOMED Code(s): 870287046 Plan: 1patient presented to hospital with sepsis in this patient who did have tachypnea and tachycardia elevated white count as well as elevated lactic acid meeting criteria for SIRS/sepsis source is right-sided pneumonia with a question of postobstructive and a possible component of empyema likely community-acquired pathogen in this patient with no history of recent antibiotic exposure or flulike symptoms 2-patient is afebrile pleural fluid culture currently growing Streptococcus intermedius micro lab unable to do sensitivity as reported organism not growing 3patient is afebrile white count was down to 12,000 today, 4patient to continue with Rocephin 2 g daily and oral Flagyl, and monitor clin ical course closely Dictation was produced using [employer] dictation software. please excuse any gramma tical, word or spelling errors. Time with Patient: Less than 30
--- NOTE | 2024-11-21 15:41 | P.PN ---
Subjective Progress Note Date: 11/21/24 Principal diagnosis: Reason for follow-up is pneumonia/empyema Patient is a 69-year-old female with a past medical history significant for ulcer Raynaud's phenomena and osteoporosis presenting to the hospital for evaluation of right-sided chest pain and cough, patient be diagnosed with right-sided effusion history of empyema and pneumonia prompted this consultation. On today's evaluation that is 11/21/2024, Patient is afebrile this morning patient denies having any chest pain shortness of breath or cough, the patient is currently on 2 L nasal oxygen, patient denies any abdominal pain no diarrhea no nausea no vomiting No new lab has been obtained today Objective - Vital Signs Vital signs: Vital Signs Temp 97.6 F 11/21/24 08:00 Pulse 86 11/21/24 15:26 Resp 18 11/21/24 12:00 BP 87/60 11/21/24 12:00 Pulse Ox 96 11/21/24 12:00 FiO2 21 11/17/24 11:14 Intake & Output 11/20/24 11/21/24 11/21/24 18:59 06:59 18:59 Intake Total 537 20 240 Output Total 500 300 350 Balance 37 -280 -110 Weight 6 kg 6 kg Intake: IV 20 Invasive Line 5 20 Oral 537 240 Output: Chest Tube Drainage 0 0 350 Chest Tube Right Upper 0 0 350 Posterior Chest Urine 500 300 Other: Voiding Method Bedside Commode Bedside Commode Toilet # Voids 5 - Exam GENERAL DESCRIPTION: An elderly female lying in bed in no distress RESPIRATORY SYSTEM: Unlabored breathing , decreased breath sounds at bases HEART: S1 S2 regular rate and rhythm , ABDOMEN: Soft , no tenderness EXTREMITIES: No edema feet - Labs CBC & Chem 7: 11/20/24 06:36 11/20/24 06:36 Labs: Microbiology - Last 24 Hours (Table) 11/07/24 09:02 Acid Fast Bacilli Smear - Preliminary Pleural Fluid Acid Fast Bacilli Culture - Preliminary Assessment and Plan (1) Sepsis Current Visit: Yes Status: Acute Code(s): A41.9 - SEPSIS, UNSPECIFIED ORGANISM SNOMED Code(s): 62355813 (2) Empyema lung Current Visit: Yes Status: Acute Code(s): J86.9 - PYOTHORAX WITHOUT FISTULA SNOMED Code(s): 29211033 (3) Pneumonia Current Visit: Yes Status: Acute Code(s): J18.9 - PNEUMONIA, UNSPECIFIED ORGANISM SNOMED Code(s): 967145526 Plan: 1patient presented to hospital with sepsis in this patient who did have tachypnea and tachycardia elevated white count as well as elevated lactic acid meeting criteria for SIRS/sepsis source is right-sided pneumonia with a question of postobstructive and a possible component of empyema likely community-acquired pathogen in this patient with no history of recent antibiotic exposure or flulike symptoms 2-patient is afebrile pleural fluid culture currently growing Streptococcus intermedius micro lab unable to do sensitivity as reported organism not growing 3patient is afebrile white count was down to 12,000 as of yesterday no CBC was done today patient did have repeat CT of the chest on 11/20/2024 concerning for persistent effusion and consolidation 4patient to continue with Rocephin 2 g daily and oral Flagyl, scheduled for VATS procedure on Wednesday per CT surgery Dictation was produced using [employer] dictation software. please excuse any grammatical, word or spelling errors. Time with Patient: Less than 30
--- NOTE | 2024-11-21 20:51 | PN ---
PROGRESS NOTE DATE OF SERVICE: 11/21/2024 CHIEF COMPLAINT: Right pleural effusion. HISTORY OF PRESENT ILLNESS: This lady still has a tube in place. Apparently, she is going for ID for a VATS procedure and pleurodesis. REVIEW OF SYSTEMS: She denies any significant chest pain or shortness of breath. PHYSICAL EXAMINATION: CHEST: Clear with decreased breath sounds throughout. CARDIAC: Normal. ABDOMEN: Soft, nontender. IMPRESSION: 1. Recurrent right pleural effusion. 2. Right lower lobe lesion. PLAN: Surgery on Wednesday. MMODL / IJN: [id number] /
--- NOTE | 2024-11-22 07:06 | XR ---
EXAMINATION TYPE: XR chest 1V portable DATE OF EXAM: 11/22/2024 CLINICAL INDICATION: Female, 69 years old with history of Empyema, progress study. TECHNIQUE: Single AP portable upright view of the chest is obtained. COMPARISON: Chest x-ray from one day earlier FINDINGS: Stable right basilar pleural pigtail drainage catheter. Persistent moderate size right-blanca ed hydropneumothorax with diminished fluid and increased air and stable small to tiny left pleural ef fusion. Upper lungs remain clear. Cardiac silhouette size is stable and within normal limits with ath erosclerotic thoracic aorta. Osseous structures are intact. IMPRESSION: Right basilar pleural pigtail drainage catheter with stable in size moderate-size right- sided hydropneumothorax and associated right basilar opacity favoring compressive atelectasis. Stabl e small to tiny size left pleural effusion. Background chronic parenchymal change. [facility], , 11/22/2024 7:04 AM
--- NOTE | 2024-11-22 09:03 | P.PN ---
Subjective Progress Note Date: 11/22/24 Principal diagnosis: Right basilar masslike consolidation, right loculated effusion, leukocytosis, hyponatremia. History of gastric ulcer, raynaud's, distant remote history of smoking POD #8 reinsertion of right pigtail catheter by interventional radiology The patient was seen and examined this morning sitting up in bed eating breakfast in no acute distress. Patient received lytics yesterday with 500 mL fluid out in her pigtail catheter, chest x-ray this morning reveals decreased fluid amount but trapped lung is present. Plan is for video-assisted thoracoscopic surgery with surgical decortication by Dr. Neal on Wednesday. Patient appears to be doing well, states she feels much better than when she came in, has been able to be somewhat ambulatory with walker and tolerating okay. Chest x-ray reviewed. Objective - Vital Signs Vital signs: Vital Signs Temp 98 F 11/22/24 08:00 Pulse 98 11/22/24 08:00 Resp 16 11/22/24 08:00 BP 95/67 11/22/24 08:00 Pulse Ox 98 11/22/24 08:00 FiO2 21 11/17/24 11:14 Intake & Output 11/21/24 11/22/24 11/22/24 18:59 06:59 18:59 Intake Total 240 366 Output Total 500 0 0 Balance -260 0 366 Weight 6 kg 59.8 kg Intake: IV 10 Invasive Line 5 10 Oral 240 356 Output: Chest Tube Drainage 500 0 0 Chest Tube Right Upper 500 0 0 Posterior Chest Other: Voiding Method Toilet Toilet Toilet # Voids 5 1 # Bowel Movements 1 - Exam CONSTITUTIONAL: Appears comfortable, cooperative, no acute distress RESPIRATORY: Lungs sounds diminished in the right base. Respirations even, nonlabored. Currently on 2 L nasal cannula with oxygen saturation 96%. Able to achieve 1100 mL on incentive spirometry. Strong cough. CARDIOVASCULAR: S1, S2 present. Regular rate and rhythm. Palpable peripheral pulses bilaterally. Bilateral lower extremity edema present. No calf pain or tenderness noted. SCDs present. GASTROINTESTINAL: Abdomen soft, nontender, nondistended. Active bowel sounds present 4 quadrants. Tolerating diet. Positive bowel movement / GENITOURINARY: Continues to void INTEGUMENTARY: Skin is warm and dry with evidence of good perfusion NEUROLOGIC: Cranial nerves II through XII intact MUSKULOSKELETAL: Able to move all extremities, strength equal bilaterally PSYCHIATRIC: Alert and oriented to person place and time INVASIVE LINES AND TUBES: Right sided pigtail present to continuous wall suction, no airleak present, 500 mL output in the last 24 hours - Allied health notes Allied health notes reviewed: nursing - Labs CBC & Chem 7: 11/20/24 06:36 11/20/24 06:36 - Imaging and Cardiology Chest x-ray: report reviewed, image reviewed Assessment and Plan Assessment: Right basilar masslike consolidation, malignancy versus infection Right loculated effusion, complicated, related to infection versus cancer Leukocytosis Hyponatremia Chest pain, cough with sputum secondary to above Recent 8 pound weight loss over 6 weeks History of gastric ulcer Raynaud's Distant remote history of smoking Plan: Continue pigtail catheter on the right Our plan is for video-assisted thoracoscopy with decortication by Dr. Neal on Wednesday, November 24, 2024 N.p.o. after midnight on Wednesday Antibiotics per infectious disease Incentive spirometry ordered and should be encouraged Increase activity as tolerated Medical management of other comorbidities per internal medicine, pulmonology, infectious disease More recommendations to follow
--- NOTE | 2024-11-22 12:24 | CDI ---
Date: 11/22/2024 From: [email or web address] Email: [email or web address] Admit Date: 11/07/2024 12:26:00 AM Patient Name: Lyubov Hanna Visit Number: [id number] Discharge Date: N/A ATTENTION: The Clinical Documentation Specialists (CDI) and [facility] Coding Staff appreciate your assistance in clarifying documentation. Please respond to the clarification below the line at the bottom and electronically sign. The CDI & [facility] Coding staff will review the response and follow-up if needed. Please note: Queries are made part of the Legal Health Record. If you have any questions, please contact the author of this message via ITS. Dr. Benny Muñoz, Sepsis is documented in the Infectious Disease Consultation Note on 11/08/2024 but is not consistently noted in previous and/or subsequent documentation. Clarification is requested. History/Risk Factors: 69-year-old female presented to [facility] ED for evaluation due to right upper quadrant abdominal pain. PMH: Former smoker, Raynauds syndrome, osteoporosis, rheumatoid arthritis Clinical indicators: Documentation Location: Electronic Medical Record ED Report (11/06/2024): Diagnosis/Symptom? Lung mass, pneumonia, acute hypoxic respiratory failure, severe sepsis Infectious Disease Progress Note (11/21/2024): o Patient presented to hospital with sepsis in this patient who did have tachypnea and tachycardia elevated white count as well as elevated lactic acid meeting criteria for SIRS/sepsis source is right-sided pneumonia with a question of post-obstructive and a possible component of empyema. Likely community-acquired pathogen in this patient with no history of recent antibiotic exposure or flu-like symptoms o Patient is afebrile pleural fluid culture currently growing Streptococcus intermedius micro lab unable to do sensitivity as reported organism not growing o Patient is afebrile, white count was down to 12,000 as of yesterday, no CBC was done today. Patient did have repeat CT of the chest on 11/20/2024 concerning for persistent effusion and consolidation o Patient to continue with Rocephin 2 g daily and oral Flagyl, scheduled for VATS procedure on Wednesday per CT surgery Pulmonology Progress Note (11/21/2024): Right-sided Streptococcal pneumonia with empyema. The patient continued to have a mass- like consolidation in the right lung base. Malignancy is doubtful at this stage Cardiothoracic Surgery Progress Note (11/22/2024): o Right basilar mass-like consolidation, malignancy versus infection o Right loculated effusion, complicated, related to infection versus cancer o Leukocytosis Vital Sign Trend: Date Time Temperature HR RR BP SpO2 11/06/2024 20:03 98.1 F (Oral) 57 28 88/64 88% on Room Air 11/07/2024 07:51 98.2 F(Oral) 86 18 103/50 95% on 2L NC 11/07/2024 12:20 N/A 84 18 88/53 95% on 2L NC 11/09/2024 00:52 98.5 F(Oral) 113 28 122/61 100% on 3L NC 11/17/2024 08:11 98.1 F(Oral) 96 16 86/57 92% on Room Air 11/21/2024 00:00 98.0 F(Oral) 96 18 94/56 94% on Room Air 11/22/2024 08:00 98.0 F(Oral) 98 16 95/67 98% on 2.5L NC Lab Results: 11/06/2024 11/08/2024 11/09/2024 11/14/2024 11/19/2024 11/20/2024 WBC 62.66 26.25 38.60 18.76 14.05 12.53 Other Clinical Indicators: Blood Cultures (Collected on 11/06/2024): No growth after 5 days Lactic Acid: (11/06/2024) 2.7 () 1.1 Procalcitonin (11/07/2024): 2.74 CRP (11/14/2024): 3.5 Treatment: Infectious Disease Consultation Rocephin 1g IVPB x 1 Rocephin 2g IVPB Every 24 Hours Flagyl 500mg IVPB Every 8 Hours Flagyl 500mg Oral TID Unasyn 3g IVPB Every 6 Hours (Discontinued) Azithromycin 500mg IVPB x 1 Maxipime 2g IVPB Every 8 Hours (Discontinued) Vancomycin 1000mg IVPB Every 12 Hours (Discontinued) Acetaminophen IVPB x1 on 11/06/2024 0.9% Sodium Chloride IV Infusion @ 130mL/hr. (Discontinued) 0.9% Sodium Chloride IV Bolus x 2 Liters (Total) Thoracentesis with Pigtail Catheter Placement VATS with Pleurodesis Planned for 11/24/2024 Please clarify if the sepsis is: [ ] Sepsis has been ruled out [ ] Sepsis was present on admission [ ] Sepsis was present but was not present on admission [ ] Other condition, please specify [ ] Unable to determine SIRS Criteria (2 or more of the following may indicate SIRS): Temperature < 96.8F (36C) or > 101.0F (38.3C) Heart Rate > 90 bpm Respiratory Rate > 20 breaths/min or PaCO2 < 32 mmHg White Blood Cell Count > 12,000 or < 4,000 cells/mm3 or > 10% bands MTDD
[2024-11-22] MEDS: DORNASE ALFA 5 MG in SODIUM CHLORIDE 0.9% 50 ML IRRIGATION ONE (14:42)
[2024-11-22] MEDS: ALTEPLASE 10 MG in SODIUM CHLORIDE 0.9% 50 ML IRRIGATION ONE (14:43)
--- NOTE | 2024-11-22 15:38 | P.PN ---
Subjective Progress Note Date: 11/22/24 69-year-old female presenting the emergency department last night with a chief complaint of right upper quadrant abdominal pain with radiation to the right back. Ongoing for the last 2 days. Workup in the emergency department including abdominal/pelvis CT which does not show any acute intra-abdominal process. Remarkable for right middle lobe cystic lesion and moderate to large right-sided pleural effusion. Follow-up chest CTA did not show any evidence of pulmonary embolism. Right basilar masslike consolidation measuring 5.4 x 5.8 cm, concerning for possible malignancy. Additional surrounding airspace consolidation, possibly superimposed pneumonia. Large right-sided pleural effus ion noted. Severe centrilobular emphysematous changes. Labs remarkable for a CBC with a WBC count of 62.7, hemoglobin 13.4, platelets 801. CMP with a sodium 130, potassium 5, chloride 95, serum bicarb 24, BUN 28, creatinine 0.88, glucose 105. Lactate 2.7 down to 1.1. AST 57, ALT 26, ALP 268. Troponins less than 0.012. NT proBNP 467. Lipase 26. Patient currently being evaluated in emergency department. She is resting comfortably on 2 L/min nasal cannula. SpO2 reading 98%. Again endorses above-mentioned right upper quadrant pain with radiation to the right thoracic level back. Previously, rated 9 out of 10 on a 10 point numerical scale. Started approximately 2 days ago. Denies any nausea, vomiting, change in bowel movements, diarrhea. Does endorse previous congested cough without much sputum production. Denies any significant purulent sputum or hemoptysis. Denies any fevers, chills. No previously diagnosed COPD. She is a former tobacco smoker, quit approximately 9 years ago. Prior to this, she smoked 1 pack, which lasted for almost a month. No family or personal history of lung cancer. No significant unintentional weight loss. No recent outpatient treatments for pneumonias. Her primary care provider is Dr. Muñoz. Given empiric doses of azithromycin, Rocephin, Flagyl, and vancomycin in the ED. Afebrile. Normal saline infusing at 130 mL/h. Nontoxic appearance. Hemodynamic stable. The patient is seen today November 08, 2024 in follow-up on the regular medical floor. She is currently sitting up in bed. Awake and alert in no acute distress. Maintaining good O2 saturations in the 90s on 2 L/min per nasal cannula. She did have a right sided pigtail catheter placed yesterday. She also had a thoracentesis performed yesterday. She continues with hazy yellow output. Her pleural fluid was exudate with a protein of 3.6 and an LDH greater than 2500. Procalcitonin was 2.74. She is currently on Unasyn. Chest x-ray continues to show ongoing moderate to large right pleural effusion with underlying atelectasis and/or consolidation. Minimally decreased compared to previous. Pleural fluid cultures are pending. White count 26.2. Hemoglobin 11.2. Platelets 544. Sodium 134. Potassium 3.7. Bicarb 23. BUN 14. Creatinine 0.52. Viral screen was negative for influenza A/B, RSV, COVID. The patient is seen today November 09, 2024 in follow-up on the regular medical floor. She is awake and alert in no acute distress. She did have some issues with desaturations earlier this morning with minimal activity. Chest x-ray shows worsening left-sided pleural effusion which is now moderate. She is currently maintaining good O2 saturations in the mid 90s on 5 L high flow nasal cannula. She is afebrile. Hemodynamically stable. She did have lytics instilled into the pigtail catheter yesterday. A total of 1420 mL have been returned since. Additional lytics will be instilled today per CT service. She continues to work well with the incentive spirometer. She remains on Unasyn. Pleural fluid cultures pending. Cytology pending. White count 38.6. Hemoglobin 11.5. Platelets 605. Seen today on 11/10/2024, patient is feeling better, breathing easier, chest x- ray is not showing much improvement on the right side pleural effusion. Still undergoing lytic therapy. May have to consider repeat CT of the chest in the next couple of days. Clinically however the patient is doing well, remains on antibiotics, cytology from the pleural effusion came back negative, cultures remain negative, still the differential diagnosis includes malignancy and/or parapneumonic complicated pleural effusion. Patient was seen today on 11/11/2024, patient is doing well, unfortunately patient pulled out her pigtail catheter accidentally, and no more lytic therapy could be given for this patient at this point, the chest x-ray is showing i mprovement, but her initial CT of the chest raised the possibility of malignancy/lung mass, I will go ahead and recommend repeat CT of the chest now for follow-up on the initially abnormal CT of the chest. Clinically I did not believe the patient had lung mass, I felt she had masslike consolidation. And may have resolved based on the fact that the patient has been receiving lytic therapy for her complicated right-sided pleural effusion. The pleural effusion was negative for malignancy. And it was negative for active infection as the cultures have been negative. Patient was seen today on 11/12/2024, patient seems to be comfortable, not in distress, continues to have leukocytosis with WBC count of 24,000, continues to have a right middle lobe cystic lesion, exact etiology is not clear, strongly doubt malignancy I believe is most likely a bulla filled with fluid. Or could represent retained secretions and airway. CT of the chest showed hydropneumothorax, I believe the patient may benefit eventually either from placement of pigtail catheter again or decortication if thoracic surgery is willing. May also require bronchoscopy and biopsy or evaluation of the right middle lobe. At this point in time we are continuing antibiotics, and we need to readdress that pigtail catheter again on Wednesday. Patient was seen today on 11/13/2024, patient is comfortable, not in distress, on nasal cannula patient is supposed to have placement of pigtail catheter again tomorrow for lytic therapy. In the meantime remains on antibiotics, continues to have loculated pleural effusion, and the fluid came back positive for Streptococcus intermedius. Continues to have leukocytosis with WC count of 24.0 hemoglobin 10.3. Patient is on 2 L nasal cannula and O2 sat is 91 to 94% Progress note dated November 14, 2024. 69-year-old female seen today in room 360. She is awake and alert. She is resting comfortably in bed. The patient currently is on Rocephin and Flagyl. She is on 2 L nasal cannula. No IV fluids. The pigtail catheter will be replaced today. She continues to be followed by cardiothoracic surgery. Laboratory data includes a white count of 18.8, hemoglobin 10.6, hematocrit 31. 4, and a platelet count of 506,000. Sodium 134, potassium 3.8, chlorides 106, CO2 22, BUN 7, creatinine 0.49. Glucose is 70. Albumin 1.7. Pleural fluid cultures were positive for Streptococcus intermedius. Chest x-ray shows a persistent right basilar opacity/effusion. Progress note dated November 15, 2024. 69-year-old female seen today in room 360. The patient is resting comfortably in bed. She is currently on 2 L. No IV fluids. She has a right pigtail catheter in place. She is receiving both Rocephin and Flagyl, for streptococcal infection. The patient is receiving tPA, and alpha dornase, as per cardiothoracic surgery. Clinically, she is feeling well. She is awake and alert. No respiratory distress. No new laboratory data today. Chest x-ray shows a right basilar pleural catheter. Right sided pleural effusion has diminished. Progress note dated November 16, 2024. 69-year-old female seen today in room 360. She is sitting up in bed. She is alert and awake. No acute distress. She is continues on nasal O2 at 2 L. She is getting saline at 10 cc an hour. Her right pigtail catheter continues to function. She did receive tPA and alpha dornase today, via cardiothoracic aden evaristo. The patient continues on Rocephin and Flagyl. No new laboratory data today. Chest x-ray today, November 16, shows diminished right lower lobe fluid collection. Drainage catheter, is noted. Progress note dated November 17, 2024. 69-year-old female seen again in room 360. She sitting in the chair next to the hospital bed. She is on room air. She continues on Rocephin and Flagyl. The patient did receive tPA, and alpha dornase today, administered by cardiothoracic surgery. Her chest x-ray continues to show improvement. Clinically, she is very stable. She has a right sided pigtail catheter in place. White count of 17.5, hemoglobin 10.5, hematocrit 30.8, platelet count 703,000. Sodium 133, potassium 4.1, chlorides 108, CO2 23, BUN 3, creatinine 0.56. Glucose is 100. Calcium is 7.0. Albumin is 1.7. Pleural fluid back from November 07, is positive for Streptococcus species. Chest x-ray shows improving right-sided opacities. Progress note dated November 18, 2024. 69-year-old female seen today in room 360. The patient is resting comfortably in bed. She is awake and alert. She is on room air. She is getting saline at 50 cc an hour. Cardiothoracic surgery is not planning to place any lytics, through her right sided pigtail catheter today. Currently, the patient is without complaints. Current laboratory data includes a sodium 135, potassium 5.4, chlorides 111, CO2 19, BUN 6, creatinine 0.57. Calcium is 7.4. Pleural fluid cultures were positive for Streptococcus intermedius. Chest x-ray is essentially unchanged. Progress note dated November 19, 2024. 69-year-old female seen today in room 360. She is lying in bed. She will not receive any tPA or alpha dornase today. She is on 2 L. No IV fluids. Clinically, she looks comfortable. She is in no acute distress. She is not coughing or short of breath. Today's labs include a white count of 14.1, hemoglobin 10.8, hematocrit 32.2, and a platelet count of 675,000. Sodium 136, potassium 4.1, chlorides 110, CO2 20, BUN 7, creatinine 0.58. Pleural fluid cultures were positive for Streptococcus intermedius. Chest x-ray reveals a right sided pleural effusion. Right pigtail catheter is unchanged. Some atelectasis is noted at the bases as well. On 11/20/2024, the patient is being seen for a follow-up. The patient remains on 2 L of oxygen by nasal cannula with pulse ox of 98%. The white cell count is at 12.5 with a hemoglobin 9.8 and the patient remains on IV Rocephin regarding the streptococcal pneumonia/empyema.. Noted the patient had an initial thoracentesis and subsequently the patient had a pigtail catheter inserted into the right hemothorax and the patient has been receiving thrombolytic therapy t hrough the pigtail catheter. Nevertheless, the patient continued to have persistent opacification of the right lung base. The right-sided pigtail catheter is attached to continuous wall suction. No evidence of any air leak and output is minimal at this point in time. A follow-up CAT scan of the chest was done. I reviewed the CAT scan of the chest and the overall progression is suboptimal as the patient continues to have persistent and prominent moderate- sized loculated right-sided pleural effusion in addition to right lower lobe consolidation. There is also significant atelectatic changes lung bases specially on the right. The patient's white cell count is at 12.5 with a hemoglobin 9.8 and a platelet count of 486. BUN is at 7 with a creatinine of 0.5 and a sodium levels at 135. On 11/21/2024, the patient is clinically stable. Repeat chest x-ray was done today and the findings are essentially unchanged the patient continues to have right basilar pleural pigtail drainage catheter with moderate-sized right-sided pleural fluid/consolidation and compressive atelectasis. The patient was given another dose of alteplase. Discussed the case with thoracic surgery and the patient is scheduled to undergo decortication on Wednesday. Meanwhile, the white cell count of 12.5 and hemoglobin 9.8 and platelet count of 486. Electrolytes are all stable. Creatinine is at 0.5. The patient remains on Flagyl and Rocephin. No altered mentation. No chest pain. No other new complaints othe rwise for now. On 11/22/2024, the patient is being seen for a follow-up. The patient was given another alteplase treatment through her pigtail catheter on the right. Since then, she had increased output in order of 500 cc. Repeat chest x-ray was done today and the patient has a loculated hydropneumothorax on the right and the right lung is probably trapped related to her empyema. The patient is scheduled to undergo a video-assisted thoracoscopic surgery and surgical decortication by thoracic surgery on Wednesday which is 2 days from now. She remains on 2 L of oxygen by nasal cannula. She is afebrile. She is hemodynamically stable. Pigtail catheter is in place. Her white cell count is 12.5 with a hemoglobin 9.8 and a platelet count of 486. Sodium is at 135, potassium is at 4.4, bicarb is 20 with a BUN of 7 and a creatinine of 0.5. No altered mentation. No chest pain. No other new complaints otherwise for now. She is using the incentive spirometer. Objective - Vital Signs Vital signs: Vital Signs Temp 98 F 11/22/24 08:00 Pulse 98 11/22/24 08:00 Resp 16 11/22/24 08:00 BP 95/67 11/22/24 08:00 Pulse Ox 98 11/22/24 08:00 FiO2 21 11/17/24 11:14 Intake & Output 11/21/24 11/22/24 11/22/24 18:59 06:59 18:59 Intake Total 240 366 Output Total 500 0 0 Balance -260 0 366 Weight 6 kg 59.8 kg Intake: IV 10 Invasive Line 5 10 Oral 240 356 Output: Chest Tube Drainage 500 0 0 Chest Tube Right Upper 500 0 0 Posterior Chest Other: Voiding Method Toilet Toilet Toilet # Voids 5 1 # Bowel Movements 1 - Exam CONSTITUTIONAL: Appears comfortable, cooperative, no acute distress RESPIRATORY: Lungs sounds diminished in the right base. Respirations even, nonlabored. Currently on 2 L nasal cannula with oxygen saturation 99%. Able to achieve 1000 mL on incentive spirometry. Strong cough. CARDIOVASCULAR: S1, S2 present. Regular rate and rhythm. Palpable peripheral pulses bilaterally. Bilateral lower extremity edema present. No calf pain or tenderness noted. SCDs present. GASTROINTESTINAL: Abdomen soft, nontender, nondistended. Active bowel sounds present 4 quadrants. Tolerating diet. Positive bowel movement GENITOURINARY: Continues to void INTEGUMENTARY: Skin is warm and dry with evidence of good perfusion NEUROLOGIC: Cranial nerves II through XII intact MUSKULOSKELETAL: Able to move all extremities, strength equal bilaterally PSYCHIATRIC: Alert and oriented to person place and time INVASIVE LINES AND TUBES: Right sided pigtail present to continuous wall suction, no airleak present, no output in the last 24 hours - Labs CBC & Chem 7: 11/20/24 06:36 11/20/24 06:36 Assessment and Plan Plan: Right sided streptococcal pneumonia with empyema. The patient continues to have a masslike consolidation in the right lung base. Malignancy is doubtful at this stage. Complicated right sided pleural effusion/exudate, fluid positive for Streptococcus intermedius, currently with pigtail catheter in place. The output from the pigtail is minimal and repeat chest CT that was done on 11/20/2024 shows persistent loculated moderate-sized right-sided pleural effusion in addition to persistent consolidation and atelectatic change in the right lung base and response to thrombolytic therapy via pigtail catheter has been suboptimal. The patient was given another alteplase treatment on 12/18/2024 with good output. Nevertheless, the subsequent chest x-ray shows a loculated right-sided hydropneumothorax and a trapped lung. Awaiting a video-assisted thoracoscopic surgery with decortication. This is scheduled on 11/24/2024. History of reinsertion of pigtail catheter, November 14, 2024. Status post right-sided thoracentesis. Acute hypoxemic respiratory failure, currently on 2 L of oxygen by nasal cannula Acute leukocytosis, secondary to right pleural space infection. The white cell count is stable Hyponatremia, recovered Raynaud's disease Remote history of smoking History of peptic ulcer disease Plan Case was discussed with cardiothoracic surgery and the patient will need A thoracoscopic evaluation/drainage/decortication. Tentatively, the procedure is scheduled on 11/24/2024. 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 Continue pigtail catheter on the right Continue IV Rocephin Incentive spirometer Monitor white cell count Hemodynamically stable Currently on 2 L of O2 nasal cannula Will continue to follow Time with Patient: Greater than 30
--- NOTE | 2024-11-23 03:05 | PN ---
PROGRESS NOTE DATE OF SERVICE: 11/22/2024 CHIEF COMPLAINT: Recurrent right pleural effusion and right lower lobe cystic mass. HISTORY OF PRESENT ILLNESS: Stable and she has had no new problems. Surgically, she is going for a VATS procedure and pleurodesis. PHYSICAL EXAMINATION: CHEST: Clear. Breath sounds are heard on the right. Catheter is in place. CARDIAC: Normal. IMPRESSION: 1. Recurrent right pleural effusion. 2. Lesion in the right lower lobe. PLAN: Surgery on Wednesday. MMODL / IJN: [id number] /
--- NOTE | 2024-11-23 07:00 | XR ---
EXAMINATION TYPE: XR chest 1V portable DATE OF EXAM: 11/23/2024 CLINICAL INDICATION: Female, 69 years old with history of empyema, progress study. TECHNIQUE: Single AP portable upright view of the chest is obtained. COMPARISON: Chest x-ray from one day earlier FINDINGS: Stable right basilar pleural pigtail drainage catheter. Persistent moderate size right-blanca ed hydropneumothorax and stable small to tiny left pleural effusion. Upper lungs remain clear. Cardi ac silhouette size is stable and within normal limits with atherosclerotic thoracic aorta. Central va scular congestion is present. Osseous structures are intact. IMPRESSION: Right basilar pleural pigtail drainage catheter with stable moderate-size right-sided h ydropneumothorax and associated right basilar opacity favoring compressive atelectasis. Stable small to tiny size left pleural effusion. Background chronic parenchymal change and mild central vascular c ongestion redemonstrated. [facility], , 11/23/2024 6:58 AM
--- NOTE | 2024-11-23 09:16 | P.PN ---
Subjective Progress Note Date: 11/23/24 Principal diagnosis: Right basilar masslike consolidation, right loculated effusion, leukocytosis, hyponatremia. History of gastric ulcer, raynaud's, distant remote history of smoking POD #9 reinsertion of right pigtail catheter by interventional radiology The patient was seen and examined this morning sitting up in the recliner eating breakfast in no acute distress. Patient received lytics yesterday with 250 mL fluid out in her pigtail catheter, chest x-ray this morning reveals decreased fluid amount but trapped lung is present. Plan is for video-assisted thoracoscopic surgery with surgical decortication by Dr. Neal on Wednesday. Patient appears to be doing well, states she feels much better than when she came in, has been able to be somewhat ambulatory with walker and tolerating okay. Chest x-ray reviewed. Objective - Vital Signs Vital signs: Vital Signs Temp 97.9 F 11/22/24 20:10 Pulse 94 11/23/24 04:15 Resp 17 11/23/24 04:15 BP 102/62 11/23/24 04:15 Pulse Ox 98 11/23/24 04:15 FiO2 21 11/17/24 11:14 Intake & Output 11/22/24 11/23/24 11/23/24 18:59 06:59 18:59 Intake Total 616 20 240 Output Total 300 890 Balance 316 -870 240 Intake: IV 20 20 Invasive Line 5 20 20 Oral 596 240 Output: Chest Tube Drainage 0 190 Chest Tube Right Upper 0 190 Posterior Chest Urine 300 700 Other: Voiding Method Toilet Toilet # Voids 1 # Bowel Movements 1 1 - Exam CONSTITUTIONAL: Appears comfortable, cooperative, no acute distress RESPIRATORY: Lungs sounds diminished in the right base. Respirations even, nonlabored. Currently on 2 L nasal cannula with oxygen saturation 98%. Able to achieve 1100 mL on incentive spirometry. Strong cough. CARDIOVASCULAR: S1, S2 present. Regular rate and rhythm. Palpable peripheral pulses bilaterally. Bilateral lower extremity edema present. No calf pain or tenderness noted. SCDs present. GASTROINTESTINAL: Abdomen soft, nontender, nondistended. Active bowel sounds present 4 quadrants. Tolerating diet. Positive bowel movement 6/5 GENITOURINARY: Continues to void INTEGUMENTARY: Skin is warm and dry with evidence of good perfusion NEUROLOGIC: Cranial nerves II through XII intact MUSKULOSKELETAL: Able to move all extremities, strength equal bilaterally PSYCHIATRIC: Alert and oriented to person place and time INVASIVE LINES AND TUBES: Right sided pigtail present to continuous wall suctio n, no airleak present, 250 mL output in the last 24 hours - Allied health notes Allied health notes reviewed: nursing - Labs CBC & Chem 7: 11/20/24 06:36 11/20/24 06:36 - Imaging and Cardiology Chest x-ray: report reviewed, image reviewed Assessment and Plan Assessment: Right basilar masslike consolidation, malignancy versus infection Right loculated effusion, complicated, related to infection versus cancer Leukocytosis Hyponatremia Chest pain, cough with sputum secondary to above Recent 8 pound weight loss over 6 weeks History of gastric ulcer Raynaud's Distant remote history of smoking Plan: Continue pigtail catheter on the right Our plan is for video-assisted thoracoscopy with decortication by Dr. Neal on Wednesday, November 24, 2024 N.p.o. after midnight on Wednesday Antibiotics per infectious disease Incentive spirometry ordered and should be encouraged Increase activity as tolerated Medical management of other comorbidities per internal medicine, pulmonology, infectious disease More recommendations to follow
[2024-11-23] MEDS: ALTEPLASE 10 MG in SODIUM CHLORIDE 0.9% 50 ML IRRIGATION ONE (10:42)
[2024-11-23] MEDS: DORNASE ALFA 5 MG in SODIUM CHLORIDE 0.9% 50 ML IRRIGATION ONE (10:43)
--- NOTE | 2024-11-23 13:56 | MISC ---
MISCELLANOUS REPORT Unable to determine. MMODL / IJN: [id number] /
--- NOTE | 2024-11-23 15:03 | P.PN ---
Subjective Progress Note Date: 11/23/24 Principal diagnosis: Reason for follow-up is pneumonia/empyema Patient is a 69-year-old female with a past medical history significant for ulcer Raynaud's phenomena and osteoporosis presenting to the hospital for evaluation of right-sided chest pain and cough, patient be diagnosed with right-sided effusion history of empyema and pneumonia prompted this consultation. On today's evaluation that is 11/23/2024,the patient remains to be afebrile, patient is on r 2 L nasal supplemental oxygen and denies any shortness of breath no chest pain or cough.Patient denies having any nausea or vomiting, no abdominal pain and no diarrhea has been reported. No new labs Objective - Vital Signs Vital signs: Vital Signs Temp 97.4 F L 11/23/24 08:20 Pulse 106 H 11/23/24 12:40 Resp 18 11/23/24 12:40 BP 93/57 11/23/24 12:40 Pulse Ox 92 L 11/23/24 12:40 FiO2 21 11/17/24 11:14 Intake & Output 11/22/24 11/23/24 11/23/24 18:59 06:59 18:59 Intake Total 616 20 240 Output Total 300 890 200 Balance 316 -870 40 Intake: IV 20 20 Invasive Line 5 20 20 Oral 596 240 Output: Chest Tube Drainage 0 190 0 Chest Tube Right Upper 0 190 0 Posterior Chest Urine 300 700 200 Other: Voiding Method Toilet Toilet Toilet # Voids 1 # Bowel Movements 1 1 1 - Exam GENERAL DESCRIPTION: An elderly female lying in bed in no distress RESPIRATORY SYSTEM: Unlabored breathing , decreased breath sounds at bases HEART: S1 S2 regular rate and rhythm , ABDOMEN: Soft , no tenderness EXTREMITIES: No edema feet - Labs CBC & Chem 7: 11/20/24 06:36 11/20/24 06:36 Assessment and Plan (1) Sepsis Current Visit: Yes Status: Acute Code(s): A41.9 - SEPSIS, UNSPECIFIED ORGANISM SNOMED Code(s): 15580903 (2) Empyema lung Current Visit: Yes Status: Acute Code(s): J86.9 - PYOTHORAX WITHOUT FISTULA SNOMED Code(s): 72154604 (3) Pneumonia Current Visit: Yes Status: Acute Code(s): J18.9 - PNEUMONIA, UNSPECIFIED ORGANISM SNOMED Code(s): 565562084 Plan: 1patient presented to hospital with sepsis in this patient who did have tachypnea and tachycardia elevated white count as well as elevated lactic acid meeting criteria for SIRS/sepsis source is right-sided pneumonia with a question of postobstructive and a possible component of empyema likely community-acquired pathogen in this patient with no history of recent antibiotic exposure or flulike symptoms 2-patient is afebrile pleural fluid culture currently growing Streptococcus intermedius micro lab unable to do sensitivity as reported organism not growing 3patient is afebrile, patient did have repeat CT of the chest on 11/20/2024 concerning for persistent effusion and consolidation 4patient waiting for the VATS procedure scheduled for tomorrow at which time deep culture should be obtained follow-up continue with Christi Dictation was produced using [email or web address] dictation software. please excuse any grammatical, word or spelling errors. Time with Patient: Less than 30
--- NOTE | 2024-11-23 15:03 | P.PN ---
Subjective Progress Note Date: 11/22/24 Principal diagnosis: Reason for follow-up is pneumonia/empyema Patient is a 69-year-old female with a past medical history significant for ulcer Raynaud's phenomena and osteoporosis presenting to the hospital for evaluation of right-sided chest pain and cough, patient be diagnosed with right-sided effusion history of empyema and pneumonia prompted this consultation. On today's evaluation that is 11/22/2024,the patient denies any fever or any chills, patient is breathing comfortably on 2 L current oxygen the patient denies chest pain shortness of breath and no significant cough, patient denies abdominal pain, no nausea vomiting or diarrhea. No new lab has been obtained today Objective - Vital Signs Vital signs: Vital Signs Temp 97.8 F 11/22/24 12:00 Pulse 87 11/22/24 12:00 Resp 16 11/22/24 12:00 BP 96/68 11/22/24 12:00 Pulse Ox 98 11/22/24 12:00 FiO2 21 11/17/24 11:14 Intake & Output 11/21/24 11/22/24 11/22/24 18:59 06:59 18:59 Intake Total 240 496 Output Total 500 0 0 Balance -260 0 496 Weight 6 kg 59.8 kg Intake: IV 20 Invasive Line 5 20 Oral 240 476 Output: Chest Tube Drainage 500 0 0 Chest Tube Right Upper 500 0 0 Posterior Chest Other: Voiding Method Toilet Toilet Toilet # Voids 5 2 # Bowel Movements 1 1 - Exam GENERAL DESCRIPTION: An elderly female lying in bed in no distress RESPIRATORY SYSTEM: Unlabored breathing , decreased breath sounds at bases HEART: S1 S2 regular rate and rhythm , ABDOMEN: Soft , no tenderness EXTREMITIES: No edema feet - Labs CBC & Chem 7: 11/20/24 06:36 11/20/24 06:36 Assessment and Plan (1) Sepsis Current Visit: Yes Status: Acute Code(s): A41.9 - SEPSIS, UNSPECIFIED ORGANISM SNOMED Code(s): 16487253 (2) Empyema lung Current Visit: Yes Status: Acute Code(s): J86.9 - PYOTHORAX WITHOUT FISTULA SNOMED Code(s): 04245058 (3) Pneumonia Current Visit: Yes Status: Acute Code(s): J18.9 - PNEUMONIA, UNSPECIFIED ORGANISM SNOMED Code(s): 925289463 Plan: 1patient presented to hospital with sepsis in this patient who did have tachypnea and tachycardia elevated white count as well as elevated lactic acid meeting criteria for SIRS/sepsis source is right-sided pneumonia with a question of postobstructive and a possible component of empyema likely community-acquired pathogen in this patient with no history of recent antibiotic exposure or flulike symptoms 2-patient is afebrile pleural fluid culture currently growing Streptococcus inte rmedius micro lab unable to do sensitivity as reported organism not growing 3patient is afebrile, patient did have repeat CT of the chest on 11/20/2024 concerning for persistent effusion and consolidation 4patient currently being treated with Rocephin 2 g daily and oral Flagyl, scheduled for VATS procedure per CT surgery on Wednesday Dictation was produced using [employer] dictation software. please excuse any grammatical, word or spelling errors. Time with Patient: Less than 30
--- NOTE | 2024-11-23 17:06 | P.PN ---
Subjective Progress Note Date: 11/23/24 69-year-old female presenting the emergency department last night with a chief complaint of right upper quadrant abdominal pain with radiation to the right back. Ongoing for the last 2 days. Workup in the emergency department including abdominal/pelvis CT which does not show any acute intra-abdominal process. Remarkable for right middle lobe cystic lesion and moderate to large right-sided pleural effusion. Follow-up chest CTA did not show any evidence of pulmonary embolism. Right basilar masslike consolidation measuring 5.4 x 5.8 cm, concerning for possible malignancy. Additional surrounding airspace consolidation, possibly superimposed pneumonia. Large right-sided pleural effus ion noted. Severe centrilobular emphysematous changes. Labs remarkable for a CBC with a WBC count of 62.7, hemoglobin 13.4, platelets 801. CMP with a sodium 130, potassium 5, chloride 95, serum bicarb 24, BUN 28, creatinine 0.88, glucose 105. Lactate 2.7 down to 1.1. AST 57, ALT 26, ALP 268. Troponins less than 0.012. NT proBNP 467. Lipase 26. Patient currently being evaluated in emergency department. She is resting comfortably on 2 L/min nasal cannula. SpO2 reading 98%. Again endorses above-mentioned right upper quadrant pain with radiation to the right thoracic level back. Previously, rated 9 out of 10 on a 10 point numerical scale. Started approximately 2 days ago. Denies any nausea, vomiting, change in bowel movements, diarrhea. Does endorse previous congested cough without much sputum production. Denies any significant purulent sputum or hemoptysis. Denies any fevers, chills. No previously diagnosed COPD. She is a former tobacco smoker, quit approximately 9 years ago. Prior to this, she smoked 1 pack, which lasted for almost a month. No family or personal history of lung cancer. No significant unintentional weight loss. No recent outpatient treatments for pneumonias. Her primary care provider is Dr. Muñoz. Given empiric doses of azithromycin, Rocephin, Flagyl, and vancomycin in the ED. Afebrile. Normal saline infusing at 130 mL/h. Nontoxic appearance. Hemodynamic stable. The patient is seen today November 08, 2024 in follow-up on the regular medical floor. She is currently sitting up in bed. Awake and alert in no acute distress. Maintaining good O2 saturations in the 90s on 2 L/min per nasal cannula. She did have a right sided pigtail catheter placed yesterday. She also had a thoracentesis performed yesterday. She continues with hazy yellow output. Her pleural fluid was exudate with a protein of 3.6 and an LDH greater than 2500. Procalcitonin was 2.74. She is currently on Unasyn. Chest x-ray continues to show ongoing moderate to large right pleural effusion with underlying atelectasis and/or consolidation. Minimally decreased compared to previous. Pleural fluid cultures are pending. White count 26.2. Hemoglobin 11.2. Platelets 544. Sodium 134. Potassium 3.7. Bicarb 23. BUN 14. Creatinine 0.52. Viral screen was negative for influenza A/B, RSV, COVID. The patient is seen today November 09, 2024 in follow-up on the regular medical floor. She is awake and alert in no acute distress. She did have some issues with desaturations earlier this morning with minimal activity. Chest x-ray shows worsening left-sided pleural effusion which is now moderate. She is currently maintaining good O2 saturations in the mid 90s on 5 L high flow nasal cannula. She is afebrile. Hemodynamically stable. She did have lytics instilled into the pigtail catheter yesterday. A total of 1420 mL have been returned since. Additional lytics will be instilled today per CT service. She continues to work well with the incentive spirometer. She remains on Unasyn. Pleural fluid cultures pending. Cytology pending. White count 38.6. Hemoglobin 11.5. Platelets 605. Seen today on 11/10/2024, patient is feeling better, breathing easier, chest x- ray is not showing much improvement on the right side pleural effusion. Still undergoing lytic therapy. May have to consider repeat CT of the chest in the next couple of days. Clinically however the patient is doing well, remains on antibiotics, cytology from the pleural effusion came back negative, cultures remain negative, still the differential diagnosis includes malignancy and/or parapneumonic complicated pleural effusion. Patient was seen today on 11/11/2024, patient is doing well, unfortunately patient pulled out her pigtail catheter accidentally, and no more lytic therapy could be given for this patient at this point, the chest x-ray is showing i mprovement, but her initial CT of the chest raised the possibility of malignancy/lung mass, I will go ahead and recommend repeat CT of the chest now for follow-up on the initially abnormal CT of the chest. Clinically I did not believe the patient had lung mass, I felt she had masslike consolidation. And may have resolved based on the fact that the patient has been receiving lytic therapy for her complicated right-sided pleural effusion. The pleural effusion was negative for malignancy. And it was negative for active infection as the cultures have been negative. Patient was seen today on 11/12/2024, patient seems to be comfortable, not in distress, continues to have leukocytosis with WBC count of 24,000, continues to have a right middle lobe cystic lesion, exact etiology is not clear, strongly doubt malignancy I believe is most likely a bulla filled with fluid. Or could represent retained secretions and airway. CT of the chest showed hydropneumothorax, I believe the patient may benefit eventually either from placement of pigtail catheter again or decortication if thoracic surgery is willing. May also require bronchoscopy and biopsy or evaluation of the right middle lobe. At this point in time we are continuing antibiotics, and we need to readdress that pigtail catheter again on Wednesday. Patient was seen today on 11/13/2024, patient is comfortable, not in distress, on nasal cannula patient is supposed to have placement of pigtail catheter again tomorrow for lytic therapy. In the meantime remains on antibiotics, continues to have loculated pleural effusion, and the fluid came back positive for Streptococcus intermedius. Continues to have leukocytosis with WC count of 24.0 hemoglobin 10.3. Patient is on 2 L nasal cannula and O2 sat is 91 to 94% Progress note dated November 14, 2024. 69-year-old female seen today in room 360. She is awake and alert. She is resting comfortably in bed. The patient currently is on Rocephin and Flagyl. She is on 2 L nasal cannula. No IV fluids. The pigtail catheter will be replaced today. She continues to be followed by cardiothoracic surgery. Laboratory data includes a white count of 18.8, hemoglobin 10.6, hematocrit 31. 4, and a platelet count of 506,000. Sodium 134, potassium 3.8, chlorides 106, CO2 22, BUN 7, creatinine 0.49. Glucose is 70. Albumin 1.7. Pleural fluid cultures were positive for Streptococcus intermedius. Chest x-ray shows a persistent right basilar opacity/effusion. Progress note dated November 15, 2024. 69-year-old female seen today in room 360. The patient is resting comfortably in bed. She is currently on 2 L. No IV fluids. She has a right pigtail catheter in place. She is receiving both Rocephin and Flagyl, for streptococcal infection. The patient is receiving tPA, and alpha dornase, as per cardiothoracic surgery. Clinically, she is feeling well. She is awake and alert. No respiratory distress. No new laboratory data today. Chest x-ray shows a right basilar pleural catheter. Right sided pleural effusion has diminished. Progress note dated November 16, 2024. 69-year-old female seen today in room 360. She is sitting up in bed. She is alert and awake. No acute distress. She is continues on nasal O2 at 2 L. She is getting saline at 10 cc an hour. Her right pigtail catheter continues to function. She did receive tPA and alpha dornase today, via cardiothoracic aden evaristo. The patient continues on Rocephin and Flagyl. No new laboratory data today. Chest x-ray today, November 16, shows diminished right lower lobe fluid collection. Drainage catheter, is noted. Progress note dated November 17, 2024. 69-year-old female seen again in room 360. She sitting in the chair next to the hospital bed. She is on room air. She continues on Rocephin and Flagyl. The patient did receive tPA, and alpha dornase today, administered by cardiothoracic surgery. Her chest x-ray continues to show improvement. Clinically, she is very stable. She has a right sided pigtail catheter in place. White count of 17.5, hemoglobin 10.5, hematocrit 30.8, platelet count 703,000. Sodium 133, potassium 4.1, chlorides 108, CO2 23, BUN 3, creatinine 0.56. Glucose is 100. Calcium is 7.0. Albumin is 1.7. Pleural fluid back from November 07, is positive for Streptococcus species. Chest x-ray shows improving right-sided opacities. Progress note dated November 18, 2024. 69-year-old female seen today in room 360. The patient is resting comfortably in bed. She is awake and alert. She is on room air. She is getting saline at 50 cc an hour. Cardiothoracic surgery is not planning to place any lytics, through her right sided pigtail catheter today. Currently, the patient is without complaints. Current laboratory data includes a sodium 135, potassium 5.4, chlorides 111, CO2 19, BUN 6, creatinine 0.57. Calcium is 7.4. Pleural fluid cultures were positive for Streptococcus intermedius. Chest x-ray is essentially unchanged. Progress note dated November 19, 2024. 69-year-old female seen today in room 360. She is lying in bed. She will not receive any tPA or alpha dornase today. She is on 2 L. No IV fluids. Clinically, she looks comfortable. She is in no acute distress. She is not coughing or short of breath. Today's labs include a white count of 14.1, hemoglobin 10.8, hematocrit 32.2, and a platelet count of 675,000. Sodium 136, potassium 4.1, chlorides 110, CO2 20, BUN 7, creatinine 0.58. Pleural fluid cultures were positive for Streptococcus intermedius. Chest x-ray reveals a right sided pleural effusion. Right pigtail catheter is unchanged. Some atelectasis is noted at the bases as well. On 11/20/2024, the patient is being seen for a follow-up. The patient remains on 2 L of oxygen by nasal cannula with pulse ox of 98%. The white cell count is at 12.5 with a hemoglobin 9.8 and the patient remains on IV Rocephin regarding the streptococcal pneumonia/empyema.. Noted the patient had an initial thoracentesis and subsequently the patient had a pigtail catheter inserted into the right hemothorax and the patient has been receiving thrombolytic therapy t hrough the pigtail catheter. Nevertheless, the patient continued to have persistent opacification of the right lung base. The right-sided pigtail catheter is attached to continuous wall suction. No evidence of any air leak and output is minimal at this point in time. A follow-up CAT scan of the chest was done. I reviewed the CAT scan of the chest and the overall progression is suboptimal as the patient continues to have persistent and prominent moderate- sized loculated right-sided pleural effusion in addition to right lower lobe consolidation. There is also significant atelectatic changes lung bases specially on the right. The patient's white cell count is at 12.5 with a hemoglobin 9.8 and a platelet count of 486. BUN is at 7 with a creatinine of 0.5 and a sodium levels at 135. On 11/21/2024, the patient is clinically stable. Repeat chest x-ray was done today and the findings are essentially unchanged the patient continues to have right basilar pleural pigtail drainage catheter with moderate-sized right-sided pleural fluid/consolidation and compressive atelectasis. The patient was given another dose of alteplase. Discussed the case with thoracic surgery and the patient is scheduled to undergo decortication on Wednesday. Meanwhile, the white cell count of 12.5 and hemoglobin 9.8 and platelet count of 486. Electrolytes are all stable. Creatinine is at 0.5. The patient remains on Flagyl and Rocephin. No altered mentation. No chest pain. No other new complaints othe rwise for now. On 11/22/2024, the patient is being seen for a follow-up. The patient was given another alteplase treatment through her pigtail catheter on the right. Since then, she had increased output in order of 500 cc. Repeat chest x-ray was done today and the patient has a loculated hydropneumothorax on the right and the right lung is probably trapped related to her empyema. The patient is scheduled to undergo a video-assisted thoracoscopic surgery and surgical decortication by thoracic surgery on Wednesday which is 2 days from now. She remains on 2 L of oxygen by nasal cannula. She is afebrile. She is hemodynamically stable. Pigtail catheter is in place. Her white cell count is 12.5 with a hemoglobin 9.8 and a platelet count of 486. Sodium is at 135, potassium is at 4.4, bicarb is 20 with a BUN of 7 and a creatinine of 0.5. No altered mentation. No chest pain. No other new complaints otherwise for now. She is using the incentive spirometer. 11/23/2024, the patient is being seen for a follow-up. No new complaints and the patient is currently on room air oxygen. Repeat chest x-ray was done this morning and the chest x-ray showed a pigtail drainage catheter in the right hemithorax with a moderate-sized right-sided hydropneumothorax which remains essentially stable. There are some ongoing atelectatic changes in lung bases bilaterally and a small left-sided pleural effusion. The patient had another dose of alteplase administered to the pigtail catheter and the patient is being scheduled for a video-assisted thoracoscopic surgery in a.m. The white cell count of 12.5 with a hemoglobin 9.8 and a platelet count of 483. BUN 7 with a creatinine of 0.5. Sodium is at 135. She remains on IV Rocephin. She is also on Lasix 20 mg IV every 12 hours and she continues to have lower extremity edema. She remains on Flagyl 500 mg p.o. 3 times daily. ID is on the case. Cardiothoracic surgery is on the case. She has no specific complaints. Using the incentive spirometer. Objective - Vital Signs Vital signs: Vital Signs Temp 97.4 F L 11/23/24 08:20 Pulse 102 H 11/23/24 08:46 Resp 16 11/23/24 08:20 BP 94/59 11/23/24 08:20 Pulse Ox 97 11/23/24 08:40 FiO2 21 11/17/24 11:14 Intake & Output 11/22/24 11/23/24 11/23/24 18:59 06:59 18:59 Intake Total 616 20 240 Output Total 300 890 200 Balance 316 -870 40 Intake: IV 20 20 Invasive Line 5 20 20 Oral 596 240 Output: Chest Tube Drainage 0 190 0 Chest Tube Right Upper 0 190 0 Posterior Chest Urine 300 700 200 Other: Voiding Method Toilet Toilet Toilet # Voids 1 # Bowel Movements 1 1 1 - Exam CONSTITUTIONAL: Appears comfortable, cooperative, no acute distress RESPIRATORY: Lungs sounds diminished in the right base. Respirations even, nonlabored. Currently on 2 L nasal cannula with oxygen saturation 99%. Able to achieve 1000 mL on incentive spirometry. Strong cough. CARDIOVASCULAR: S1, S2 present. Regular rate and rhythm. Palpable peripheral pulses bilaterally. Bilateral lower extremity edema present. No calf pain or tenderness noted. SCDs present. GASTROINTESTINAL: Abdomen soft, nontender, nondistended. Active bowel sounds present 4 quadrants. Tolerating diet. Positive bowel movement GENITOURINARY: Continues to void INTEGUMENTARY: Skin is warm and dry with evidence of good perfusion NEUROLOGIC: Cranial nerves II through XII intact MUSKULOSKELETAL: Able to move all extremities, strength equal bilaterally PSYCHIATRIC: Alert and oriented to person place and time INVASIVE LINES AND TUBES: Right sided pigtail present to continuous wall s uction, no airleak present, no output in the last 24 hours - Labs CBC & Chem 7: 11/20/24 06:36 11/20/24 06:36 Assessment and Plan Plan: Right sided streptococcal pneumonia with empyema. The patient was given a p igtail catheter and the patient has a loculated right-sided hydropneumothorax and the right lung is felt to be trapped and the patient scheduled to undergo a video-assisted thoracoscopic lung surgery in a.m. Another dose of alteplase was given through the pigtail catheter today. Complicated right sided pleural effusion/exudate, fluid positive for Streptococcus intermedius, currently with pigtail catheter in place. The output from the pigtail is minimal and repeat chest CT that was done on 11/20/2024 shows persistent loculated moderate-sized right-sided pleural effusion in addition to persistent consolidation and atelectatic change in the right lung base and response to thrombolytic therapy via pigtail catheter has been suboptimal. The patient was given another alteplase treatment on 12/18/2024 with good output. Nevertheless, the subsequent chest x-ray shows a loculated right-sided hydr opneumothorax and a trapped lung. Awaiting a video-assisted thoracoscopic surgery with decortication. This is scheduled on 11/24/2024. Chest x-ray findings from today is essentially unchanged. History of reinsertion of pigtail catheter, November 14, 2024. Acute hypoxemic respiratory failure, currently on room air oxygen Acute leukocytosis, secondary to right pleural space infection. The white cell count is stable Hyponatremia, recovered Raynaud's disease Remote history of smoking History of peptic ulcer disease Plan Case was discussed with cardiothoracic surgery and the patient will need A thoracoscopic evaluation/drainage/decortication. Tentatively, the procedure is scheduled on 11/24/2024. 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 Repeat chest x-ray shows no interval change Continue pigtail catheter on the right, none dose of alteplase was given through the pigtail catheter Continue IV Rocephin Incentive spirometer Monitor white cell count Hemodynamically stable Patient currently on room air oxygen and the patient is clinically stable. Will continue to follow. Time with Patient: Greater than 30
--- NOTE | 2024-11-24 07:01 | XR ---
EXAMINATION TYPE: XR chest 1V portable DATE OF EXAM: 11/24/2024 CLINICAL INDICATION: Female, 69 years old with history of Empyema, progress study. TECHNIQUE: Single AP portable upright view of the chest is obtained. COMPARISON: Chest x-ray from one day earlier FINDINGS: The right basilar pleural pigtail drainage catheter has been retracted and is now more lat eral in position. Persistent moderate size right-sided hydropneumothorax and stable small to tiny le ft pleural effusion. Upper lungs remain clear. Cardiac silhouette size is stable and within normal li mits with atherosclerotic thoracic aorta. Central vascular congestion remains present. Osseous struct ures are demineralized. IMPRESSION: Right basilar pleural pigtail drainage catheter redemonstrated with stable moderate-size right-sided hydropneumothorax and associated right basilar opacity favoring compressive atelectasis . Stable small to tiny size left pleural effusion. Background chronic parenchymal change and mild jennifer tral vascular congestion redemonstrated. No significant change from one day earlier. [facility], , 11/24/2024 6:58 AM
[2024-11-24 07:24] LABS: HGB 8.9 g/dL (12.0-15.0); MCH 29.8 pg (27.0-32.0); MCHC 34.2 g/dL (32.0-37.0); Mean Platelet Volume 9.2 fL (9.5-12.2); Platelet Count 573 10*3/uL (140-440); RBC 2.99 10*6/uL (4.10-5.20); RDW 17.1 % (11.5-14.5); WBC 10.25 10*3/uL (4.50-10.00)
[2024-11-24 07:37] LABS: African American GFR (CKD) >90 (>60 ml/min/1.73 sqM); Anion Gap 4 mmol/L; Blood Urea Nitrogen 8 mg/dL (7-17); Calcium 7.1 mg/dL (8.4-10.2); Carbon Dioxide 30 mmol/L (22-30); Chloride 101 mmol/L (98-107); Glucose 82 mg/dL (74-99); Non-African American GFR(CKD) >90 (>60 ml/min/1.73 sqM); Potassium 3.4 mmol/L (3.5-5.1); Sodium 135 mmol/L (137-145)
[2024-11-24] MEDS: IV FLUID CONTINUATION 1,000 ML IV ONE ×2 (07:41→08:02)
[2024-11-24] MEDS ORDERED: HYDROmorphone 0.5 MG/0.5 ML SYRINGE IVP PRN (07:42)
[2024-11-24 07:54] LABS: Glucose,Whole Blood 91 mg/dL (70-110)
[2024-11-24] MEDS: DEXAMETHASONE SOD PHOSPHATE 4 MG/ML 1 ML VIAL IVP STA (08:03)
[2024-11-24] MEDS: LACTATED RINGERS 1,000 ML IV SCH (08:03)
[2024-11-24] MEDS: MIDAZOLAM 2 MG/2 ML VIAL IV PRN (08:10)
[2024-11-24] MEDS: fentaNYL (PF) 50 MCG/ML 2 ML AMP IVP STA (08:10)
[2024-11-24] MEDS ORDERED: GLYCOPYRROLATE 0.2 MG/ML 2 ML VIAL ONE (08:55)
[2024-11-24] MEDS ORDERED: NEOSTIGMINE 1 MG/ML 10 ML VIAL ONE (08:55)
[2024-11-24] MEDS ORDERED: PROPOFOL 10 MG/ML 20 ML VIAL IV ONE (08:55)
[2024-11-24] MEDS ORDERED: SUCCINYLCHOLINE CHLORIDE 200 MG/10 ML VIAL IV ONE (08:55)
[2024-11-24] MEDS ORDERED: fentaNYL (PF) 50 MCG/ML 2 ML AMP ONE (08:55)
[2024-11-24] MEDS ORDERED: PHENYLEPHRINE-0.9% NACL SYG 1,000 MCG/10 ML SYRINGE ONE (08:55)
[2024-11-24] MEDS ORDERED: ROPIVACAINE 5 MG/ML 30 ML VIAL ONE (08:55)
[2024-11-24] MEDS ORDERED: KETAMINE HCL IN 0.9 % NACL 50 MG/5 ML SYRINGE ONE (08:55)
[2024-11-24] MEDS ORDERED: ROCURONIUM 10 MG/ML (5 ML VIAL) IV ONE (08:55)
[2024-11-24] MEDS ORDERED: LIDOCAINE 1% INJ 10MG/ML (20 ML MDV) ONE (08:55)
[2024-11-24] MEDS ORDERED: diphenhydrAMINE 50 MG/ML 1 ML VIAL ONE (08:55)
[2024-11-24] MEDS: BUPIVACAINE (PF) 0.25% 30 ML VIAL SQ ONE ×2 (09:47)
[2024-11-24] MEDS: LIDOCAINE 1%-EPI 1:100,000 20 ML VIAL SQ ONE ×2 (09:47)
--- NOTE | 2024-11-24 10:36 | P.ANPRN ---
Procedure Note - Anesthesia - Nerve Block Performed Right Erector Spinae Single Time Out Performed: Yes (0810) Date of Procedure: 11/24/24 Procedure Start Time: 08:11 Procedure Stop Time: 08:15 Location of Patient: PreOp Indication: Acute Post-Operative Pain, Requested by Surgeon Specifically requested for management of pain by DrManan: Francisco Neal Sedation Type: Sedate with meaningful contact maintained Preparation: Sterile Prep Position: Sitting Catheter: None Needle Types: Pajunk Needle Gauge: 21 Ultrasound used to visualize needle placement: Yes Ultrasound used to observe medication spread: Yes Injectate: 0.5% Ropivacaine (see comment for volume) (30cc) Blood Aspirated: No Pain Paresthesia on Injection Noted: No Resistance on Injection: Normal Image Stored and Saved: Yes Events: Uneventful and Well Tolerated
--- NOTE | 2024-11-24 10:37 | P.ANPRN ---
Procedure Note - Anesthesia - Invasive Line Right Arterial Line Time Out Performed: Yes (0810) Date of Procedure: 11/24/24 Time of Procedure: 08:16 Location of Patient: PreOp Preparation: Sterile Prep, Sterile Dressing Arterial Line Location: Radial (right) Ultrasound Used: Yes Purpose - Visualization and Identification of Vasculature: Yes Needle Guage: 20g Image Stored and Saved: Yes Narrative: Invasive line placement per sterile protocol utilized.
--- NOTE | 2024-11-24 11:11 | P.OP ---
Date of Procedure: 11/24/24 Preoperative Diagnosis: Right sided empyema Postoperative Diagnosis: Right-sided empyema Procedure(s) Performed: Right thoracoscopy with decortication Single level intercostal nerve block Implants: Drain: 20 Colombian anterior chest tube Anesthesia: SARITA Surgeon: Francisco Neal Estimated Blood Loss (ml): 25 Pathology: none sent Condition: stable Disposition: PACU Indications for Procedure: Mrs. Hanna presented to the hospital quite ill with what appeared to be a consolidation on the right side of her chest and proved on CT scan to be a fluid collection. She had a pigtail drain placed which initially was not very amenable to lytic agents but eventually was drained fairly well with the lytic agents. After a significant amount of drainage it was clear that she had a longstanding empyema and had some entrapment of her right lower lobe. With that we were asked to evaluate her for thoracoscopy and decortication which she presents for today. Operative Findings: 1. Well-defined abscess cavity 2. Chronically thickened parietal and visceral pleura lining the abscess cavity 3. Relatively normal pleura on the rest of the lung on the upper and middle lobes anterior, posteriorly and apically. 4. Diaphragmatic adhesions to the chest wall taken down effectively Description of Procedure: After consent was obtained, the patient was brought to the operating room where she underwent general by dual-lumen endotracheal tube anesthesia and bronchoscopic confirmation. We were then able to turn her in left lateral decubitus position and she was prepped and draped in sterile fashion. We then observed a timeout whereby the patient, the procedure, the site, the side, antibiotic delivery, OR personnel and films up in the room were all verified. We then proceeded to sandra and inject the patient for an intercostal nerve block and with entry into the chest wall in the eighth interspace and gained blunt access to the abscess cavity. We placed the camera within that and were able to find a second interspace that was free into the cavity. This was a second intercostal space level at roughly 7 and we had to perform a second intercostal nerve block under direct vision of the scope prior to insertion of our port. Once that was accomplished we were able to use a laparoscopic suction to remove approximately 200 cc of purulent material. We did irrigate with a small amount of saline in order to liquefy the material enough to suction through the 5 mm cannula. Once the cavity was completely cleaned we checked from both port sites with the camera to assure there were no retained areas of purulence. We then used a [place] clamp to bluntly take down the adhesions at the chest wall we carefully exposed the unaffected pleura and freed up the entire upper and middle lobe with only a small breach of the pleura posteriorly and medially. We then freed up the adhesions at the edge of the diaphragm exposing the insertion from spine all the way around to the mediastinum in the front. We are then able to place a 20 Colombian chest tube anteriorly and fixated in place with a 0 Ethibond suture. Brought the lung up under direct vision of the scope and found that the cavity collapsed nicely but the patient did have an air leak in lateral position secondary to the small breach in the posterior medial visceral pleura. We then proceeded to close the incision around the chest tube in the posterior most incision with a deep 2-0 Vicryl buried interrupted and the skin with a 4-0 Monocryl prior to gluing the posterior incision and the anterior incision up to the chest tube. We then dressed the chest tube in standard fashion and attached it to a Pleur-evac on -20 suction. She was then taken in stable condition to the PACU.
--- NOTE | 2024-11-24 11:54 | PN ---
PROGRESS NOTE DATE OF SERVICE: 11/23/2024 CHIEF COMPLAINT: Recurrent right pleural effusion and cystic lesion in the right lower lobe. HISTORY OF PRESENT ILLNESS: This lady is stable and awaits her surgery tomorrow. She is not having any chest pain, shortness of breath, etc. PHYSICAL EXAMINATION: CHEST: Clear. CARDIAC: Exam is normal. Catheter is still in the right chest. IMPRESSION: 1. Recurrent right pleural effusion. 2. Lesion in the right lower lobe. PLAN: Await her surgery tomorrow. MMODL / IJN: [id number] /
--- NOTE | 2024-11-24 12:02 | XR ---
EXAMINATION TYPE: XR chest 1V portable DATE OF EXAM: 11/24/2024 CLINICAL INDICATION: Female, 69 years old with history of post VATS, progress study. TECHNIQUE: Single AP portable semiupright view of the chest is obtained. COMPARISON: Chest x-ray from earlier today FINDINGS: Interval removal of right-sided pleural pigtail drain catheter. Moderate to large size rig ht-sided hydropneumothorax more prominent after right apical chest tube placement. New adjacent right sided lateral subcutaneous emphysema is noted. Persistent right medial basilar opacity. Stable small left pleural effusion. Cardiac silhouette size stable and upper limits of normal with at herosclerotic thoracic aorta. Osseous structures are intact. IMPRESSION: More prominent moderate to large size right-sided hydropneumothorax after pigtail drainag e catheter removal and placement of apical chest tube. [facility], , 11/24/2024 11:59 AM
--- NOTE | 2024-11-24 16:11 | P.PN ---
Subjective Progress Note Date: 11/24/24 Principal diagnosis: Reason for follow-up is pneumonia/empyema Patient is a 69-year-old female with a past medical history significant for ulcer Raynaud's phenomena and osteoporosis presenting to the hospital for evaluation of right-sided chest pain and cough, patient be diagnosed with right-sided effusion history of empyema and pneumonia prompted this consultation.Patient is status post right thoracoscopy with decortication for right-sided empyema no OR culture procedure completed on 11/24/2024 On today's evaluation that is 11/24/2024, the patient continues to be afebrile, the patient is on 4 L nasal oxygen and breathing comfortably, the Pt denies any worsening cough, the patient denies having any abdominal pain no vomiting or any diarrhea has been reported by the nursing staff. Patient white count of 10.25 creatinine 0.59 Objective - Vital Signs Vital signs: Vital Signs Temp 96.8 F L 11/24/24 10:46 Pulse 74 11/24/24 13:00 Resp 19 11/24/24 13:00 BP 95/57 11/24/24 13:00 Pulse Ox 93 L 11/24/24 13:00 FiO2 21 11/17/24 11:14 Intake & Output 11/23/24 11/24/24 11/24/24 18:59 06:59 18:59 Intake Total 480 850 Output Total 356 186 0984 Balance 240 -120 -285 Intake: IV 850 Oral 480 Output: Chest Tube Drainage 40 120 10 Chest Tube Right Upper 40 120 10 Posterior Chest Urine 200 900 Pleural Fluid 200 Estimated Blood Loss 25 Other: Voiding Method Toilet Toilet # Bowel Movements 1 - Exam GENERAL DESCRIPTION: An elderly female lying in bed in no distress RESPIRATORY SYSTEM: Unlabored breathing , decreased breath sounds at bases HEART: S1 S2 regular rate and rhythm , ABDOMEN: Soft , no tenderness EXTREMITIES: No edema feet - Labs CBC & Chem 7: 11/24/24 06:41 11/24/24 06:41 Labs: Abnormal Lab Results - Last 24 Hours (Table) 11/24/24 11/24/24 Range/Units 06:41 06:41 WBC 10.25 H (4.50-10.00) 10*3/uL RBC 2.99 L (4.10-5.20) 10*6/uL Hgb 8.9 L (12.0-15.0) g/dL Hct 26.0 L (37.2-46.3) % Plt Count 573 H (140-440) 10*3/uL MPV 9.2 L (9.5-12.2) fL Sodium 135 L (137-145) mmol/L Potassium 3.4 L (3.5-5.1) mmol/L Calcium 7.1 L (8.4-10.2) mg/dL Microbiology - Last 24 Hours (Table) 11/07/24 09:02 Acid Fast Bacilli Smear - Preliminary Pleural Fluid Acid Fast Bacilli Culture - Preliminary Assessment and Plan (1) Sepsis Current Visit: Yes Status: Acute Code(s): A41.9 - SEPSIS, UNSPECIFIED ORGANISM SNOMED Code(s): 64688733 (2) Empyema lung Current Visit: Yes Status: Acute Code(s): J86.9 - PYOTHORAX WITHOUT FISTULA SNOMED Code(s): 20031352 (3) Pneumonia Current Visit: Yes Status: Acute Code(s): J18.9 - PNEUMONIA, UNSPECIFIED ORGANISM SNOMED Code(s): 333468859 Plan: 1patient presented to hospital with sepsis in this patient who did have tachypnea and tachycardia elevated white count as well as elevated lactic acid meeting criteria for SIRS/sepsis source is right-sided pneumonia with a question of postobstructive and a possible component of empyema likely community-acquired pathogen in this patient with no history of recent antibiotic exposure or flulike symptoms 2-patient is afebrile pleural fluid culture currently growing Streptococcus intermedius micro lab unable to do sensitivity as reported organism not growing 3patient is afebrile, patient did have repeat CT of the chest on 11/20/2024 concerning for persistent effusion and consolidation, the patient status post right-sided thoracoscopy and decortication completed on 11/24/2024 no OR culture 4patient white count has normalized, to continue with Rocephin and Flagyl and monitor clinical course closely Dictation was produced using [employer] dictation software. please excuse any grammatical, word or spelling errors. Time with Patient: Less than 30
--- NOTE | 2024-11-24 19:55 | P.PN ---
Subjective Progress Note Date: 11/24/24 69-year-old female presenting the emergency department last night with a chief complaint of right upper quadrant abdominal pain with radiation to the right back. Ongoing for the last 2 days. Workup in the emergency department including abdominal/pelvis CT which does not show any acute intra-abdominal process. Remarkable for right middle lobe cystic lesion and moderate to large right-sided pleural effusion. Follow-up chest CTA did not show any evidence of pulmonary embolism. Right basilar masslike consolidation measuring 5.4 x 5.8 cm, concerning for possible malignancy. Additional surrounding airspace consolidation, possibly superimposed pneumonia. Large right-sided pleural effus ion noted. Severe centrilobular emphysematous changes. Labs remarkable for a CBC with a WBC count of 62.7, hemoglobin 13.4, platelets 801. CMP with a sodium 130, potassium 5, chloride 95, serum bicarb 24, BUN 28, creatinine 0.88, glucose 105. Lactate 2.7 down to 1.1. AST 57, ALT 26, ALP 268. Troponins less than 0.012. NT proBNP 467. Lipase 26. Patient currently being evaluated in emergency department. She is resting comfortably on 2 L/min nasal cannula. SpO2 reading 98%. Again endorses above-mentioned right upper quadrant pain with radiation to the right thoracic level back. Previously, rated 9 out of 10 on a 10 point numerical scale. Started approximately 2 days ago. Denies any nausea, vomiting, change in bowel movements, diarrhea. Does endorse previous congested cough without much sputum production. Denies any significant purulent sputum or hemoptysis. Denies any fevers, chills. No previously diagnosed COPD. She is a former tobacco smoker, quit approximately 9 years ago. Prior to this, she smoked 1 pack, which lasted for almost a month. No family or personal history of lung cancer. No significant unintentional weight loss. No recent outpatient treatments for pneumonias. Her primary care provider is Dr. Muñoz. Given empiric doses of azithromycin, Rocephin, Flagyl, and vancomycin in the ED. Afebrile. Normal saline infusing at 130 mL/h. Nontoxic appearance. Hemodynamic stable. The patient is seen today November 08, 2024 in follow-up on the regular medical floor. She is currently sitting up in bed. Awake and alert in no acute distress. Maintaining good O2 saturations in the 90s on 2 L/min per nasal cannula. She did have a right sided pigtail catheter placed yesterday. She also had a thoracentesis performed yesterday. She continues with hazy yellow output. Her pleural fluid was exudate with a protein of 3.6 and an LDH greater than 2500. Procalcitonin was 2.74. She is currently on Unasyn. Chest x-ray continues to show ongoing moderate to large right pleural effusion with underlying atelectasis and/or consolidation. Minimally decreased compared to previous. Pleural fluid cultures are pending. White count 26.2. Hemoglobin 11.2. Platelets 544. Sodium 134. Potassium 3.7. Bicarb 23. BUN 14. Creatinine 0.52. Viral screen was negative for influenza A/B, RSV, COVID. The patient is seen today November 09, 2024 in follow-up on the regular medical floor. She is awake and alert in no acute distress. She did have some issues with desaturations earlier this morning with minimal activity. Chest x-ray shows worsening left-sided pleural effusion which is now moderate. She is currently maintaining good O2 saturations in the mid 90s on 5 L high flow nasal cannula. She is afebrile. Hemodynamically stable. She did have lytics instilled into the pigtail catheter yesterday. A total of 1420 mL have been returned since. Additional lytics will be instilled today per CT service. She continues to work well with the incentive spirometer. She remains on Unasyn. Pleural fluid cultures pending. Cytology pending. White count 38.6. Hemoglobin 11.5. Platelets 605. Seen today on 11/10/2024, patient is feeling better, breathing easier, chest x- ray is not showing much improvement on the right side pleural effusion. Still undergoing lytic therapy. May have to consider repeat CT of the chest in the next couple of days. Clinically however the patient is doing well, remains on antibiotics, cytology from the pleural effusion came back negative, cultures remain negative, still the differential diagnosis includes malignancy and/or parapneumonic complicated pleural effusion. Patient was seen today on 11/11/2024, patient is doing well, unfortunately patient pulled out her pigtail catheter accidentally, and no more lytic therapy could be given for this patient at this point, the chest x-ray is showing i mprovement, but her initial CT of the chest raised the possibility of malignancy/lung mass, I will go ahead and recommend repeat CT of the chest now for follow-up on the initially abnormal CT of the chest. Clinically I did not believe the patient had lung mass, I felt she had masslike consolidation. And may have resolved based on the fact that the patient has been receiving lytic therapy for her complicated right-sided pleural effusion. The pleural effusion was negative for malignancy. And it was negative for active infection as the cultures have been negative. Patient was seen today on 11/12/2024, patient seems to be comfortable, not in distress, continues to have leukocytosis with WBC count of 24,000, continues to have a right middle lobe cystic lesion, exact etiology is not clear, strongly doubt malignancy I believe is most likely a bulla filled with fluid. Or could represent retained secretions and airway. CT of the chest showed hydropneumothorax, I believe the patient may benefit eventually either from placement of pigtail catheter again or decortication if thoracic surgery is willing. May also require bronchoscopy and biopsy or evaluation of the right middle lobe. At this point in time we are continuing antibiotics, and we need to readdress that pigtail catheter again on Wednesday. Patient was seen today on 11/13/2024, patient is comfortable, not in distress, on nasal cannula patient is supposed to have placement of pigtail catheter again tomorrow for lytic therapy. In the meantime remains on antibiotics, continues to have loculated pleural effusion, and the fluid came back positive for Streptococcus intermedius. Continues to have leukocytosis with WC count of 24.0 hemoglobin 10.3. Patient is on 2 L nasal cannula and O2 sat is 91 to 94% Progress note dated November 14, 2024. 69-year-old female seen today in room 360. She is awake and alert. She is resting comfortably in bed. The patient currently is on Rocephin and Flagyl. She is on 2 L nasal cannula. No IV fluids. The pigtail catheter will be replaced today. She continues to be followed by cardiothoracic surgery. Laboratory data includes a white count of 18.8, hemoglobin 10.6, hematocrit 31. 4, and a platelet count of 506,000. Sodium 134, potassium 3.8, chlorides 106, CO2 22, BUN 7, creatinine 0.49. Glucose is 70. Albumin 1.7. Pleural fluid cultures were positive for Streptococcus intermedius. Chest x-ray shows a persistent right basilar opacity/effusion. Progress note dated November 15, 2024. 69-year-old female seen today in room 360. The patient is resting comfortably in bed. She is currently on 2 L. No IV fluids. She has a right pigtail catheter in place. She is receiving both Rocephin and Flagyl, for streptococcal infection. The patient is receiving tPA, and alpha dornase, as per cardiothoracic surgery. Clinically, she is feeling well. She is awake and alert. No respiratory distress. No new laboratory data today. Chest x-ray shows a right basilar pleural catheter. Right sided pleural effusion has diminished. Progress note dated November 16, 2024. 69-year-old female seen today in room 360. She is sitting up in bed. She is alert and awake. No acute distress. She is continues on nasal O2 at 2 L. She is getting saline at 10 cc an hour. Her right pigtail catheter continues to function. She did receive tPA and alpha dornase today, via cardiothoracic aden evaristo. The patient continues on Rocephin and Flagyl. No new laboratory data today. Chest x-ray today, November 16, shows diminished right lower lobe fluid collection. Drainage catheter, is noted. Progress note dated November 17, 2024. 69-year-old female seen again in room 360. She sitting in the chair next to the hospital bed. She is on room air. She continues on Rocephin and Flagyl. The patient did receive tPA, and alpha dornase today, administered by cardiothoracic surgery. Her chest x-ray continues to show improvement. Clinically, she is very stable. She has a right sided pigtail catheter in place. White count of 17.5, hemoglobin 10.5, hematocrit 30.8, platelet count 703,000. Sodium 133, potassium 4.1, chlorides 108, CO2 23, BUN 3, creatinine 0.56. Glucose is 100. Calcium is 7.0. Albumin is 1.7. Pleural fluid back from November 07, is positive for Streptococcus species. Chest x-ray shows improving right-sided opacities. Progress note dated November 18, 2024. 69-year-old female seen today in room 360. The patient is resting comfortably in bed. She is awake and alert. She is on room air. She is getting saline at 50 cc an hour. Cardiothoracic surgery is not planning to place any lytics, through her right sided pigtail catheter today. Currently, the patient is without complaints. Current laboratory data includes a sodium 135, potassium 5.4, chlorides 111, CO2 19, BUN 6, creatinine 0.57. Calcium is 7.4. Pleural fluid cultures were positive for Streptococcus intermedius. Chest x-ray is essentially unchanged. Progress note dated November 19, 2024. 69-year-old female seen today in room 360. She is lying in bed. She will not receive any tPA or alpha dornase today. She is on 2 L. No IV fluids. Clinically, she looks comfortable. She is in no acute distress. She is not coughing or short of breath. Today's labs include a white count of 14.1, hemoglobin 10.8, hematocrit 32.2, and a platelet count of 675,000. Sodium 136, potassium 4.1, chlorides 110, CO2 20, BUN 7, creatinine 0.58. Pleural fluid cultures were positive for Streptococcus intermedius. Chest x-ray reveals a right sided pleural effusion. Right pigtail catheter is unchanged. Some atelectasis is noted at the bases as well. On 11/20/2024, the patient is being seen for a follow-up. The patient remains on 2 L of oxygen by nasal cannula with pulse ox of 98%. The white cell count is at 12.5 with a hemoglobin 9.8 and the patient remains on IV Rocephin regarding the streptococcal pneumonia/empyema.. Noted the patient had an initial thoracentesis and subsequently the patient had a pigtail catheter inserted into the right hemothorax and the patient has been receiving thrombolytic therapy t hrough the pigtail catheter. Nevertheless, the patient continued to have persistent opacification of the right lung base. The right-sided pigtail catheter is attached to continuous wall suction. No evidence of any air leak and output is minimal at this point in time. A follow-up CAT scan of the chest was done. I reviewed the CAT scan of the chest and the overall progression is suboptimal as the patient continues to have persistent and prominent moderate- sized loculated right-sided pleural effusion in addition to right lower lobe consolidation. There is also significant atelectatic changes lung bases specially on the right. The patient's white cell count is at 12.5 with a hemoglobin 9.8 and a platelet count of 486. BUN is at 7 with a creatinine of 0.5 and a sodium levels at 135. On 11/21/2024, the patient is clinically stable. Repeat chest x-ray was done today and the findings are essentially unchanged the patient continues to have right basilar pleural pigtail drainage catheter with moderate-sized right-sided pleural fluid/consolidation and compressive atelectasis. The patient was given another dose of alteplase. Discussed the case with thoracic surgery and the patient is scheduled to undergo decortication on Wednesday. Meanwhile, the white cell count of 12.5 and hemoglobin 9.8 and platelet count of 486. Electrolytes are all stable. Creatinine is at 0.5. The patient remains on Flagyl and Rocephin. No altered mentation. No chest pain. No other new complaints othe rwise for now. On 11/22/2024, the patient is being seen for a follow-up. The patient was given another alteplase treatment through her pigtail catheter on the right. Since then, she had increased output in order of 500 cc. Repeat chest x-ray was done today and the patient has a loculated hydropneumothorax on the right and the right lung is probably trapped related to her empyema. The patient is scheduled to undergo a video-assisted thoracoscopic surgery and surgical decortication by thoracic surgery on Wednesday which is 2 days from now. She remains on 2 L of oxygen by nasal cannula. She is afebrile. She is hemodynamically stable. Pigtail catheter is in place. Her white cell count is 12.5 with a hemoglobin 9.8 and a platelet count of 486. Sodium is at 135, potassium is at 4.4, bicarb is 20 with a BUN of 7 and a creatinine of 0.5. No altered mentation. No chest pain. No other new complaints otherwise for now. She is using the incentive spirometer. 11/23/2024, the patient is being seen for a follow-up. No new complaints and the patient is currently on room air oxygen. Repeat chest x-ray was done this morning and the chest x-ray showed a pigtail drainage catheter in the right hemithorax with a moderate-sized right-sided hydropneumothorax which remains essentially stable. There are some ongoing atelectatic changes in lung bases bilaterally and a small left-sided pleural effusion. The patient had another dose of alteplase administered to the pigtail catheter and the patient is being scheduled for a video-assisted thoracoscopic surgery in a.m. The white cell count of 12.5 with a hemoglobin 9.8 and a platelet count of 483. BUN 7 with a creatinine of 0.5. Sodium is at 135. She remains on IV Rocephin. She is also on Lasix 20 mg IV every 12 hours and she continues to have lower extremity edema. She remains on Flagyl 500 mg p.o. 3 times daily. ID is on the case. Cardiothoracic surgery is on the case. She has no specific complaints. Using the incentive spirometer. On 11/24/2024, the patient was taken to the operating room. The patient underwent a right thoracoscopy and decortication. The patient also had a single level intercostal nerve block. The patient was found to have a well-defined abscess cavity and chronically thickened parietal and visceral pleural lining the abscess cavity. The patient had a relatively normal pleural at the rest of the lung in the upper and middle lobes and posteriorly and apically. Diaphragmatic adhesions to the chest wall were taken down effectively. 200 cc of purulent material was aspirated intraoperatively. Following that, a 20 Czech chest tube was secured in place. Postoperative chest x-ray shows more prominent moderate to large size right-sided hydropneumothorax and the right-sided chest tube is in a good location. The white cell count today is at 10.2 with a hemoglobin of 8.9 and platelet count of 573. BUN is 8 with a creatinine of 0.5 and sodium levels at 135. Remains on IV Rocephin and Flagyl. [place] for pain control. Remains on DuoNeb updrafts [id number]. Postop, she is maintained on oxygen at 4 L with a pulse ox of 98%. Objective - Vital Signs Vital signs: Vital Signs Temp 96.8 F L 11/24/24 10:46 Pulse 71 11/24/24 11:00 Resp 20 11/24/24 11:00 BP 101/62 11/24/24 11:00 Pulse Ox 99 11/24/24 11:00 FiO2 21 11/17/24 11:14 Intake & Output 0611/24/24 11/24/24 18:59 06:59 18:59 Intake Total 480 850 Output Total 656 528 7351 Balance 240 -120 -285 Intake: IV 850 Oral 480 Output: Chest Tube Drainage 40 120 10 Chest Tube Right Upper 40 120 10 Posterior Chest Urine 200 900 Pleural Fluid 200 Estimated Blood Loss 25 Other: Voiding Method Toilet Toilet # Bowel Movements 1 - Exam CONSTITUTIONAL: Appears comfortable, cooperative, no acute distress, currently on 4 liters of oxygen by nasal cannula RESPIRATORY: Lungs sounds diminished in the right base. Surgical wound site of the right lung area is dry clean and intact and the patient has right-sided chest tube in place, 20 Czech CARDIOVASCULAR: S1, S2 present. Regular rate and rhythm. Palpable peripheral pulses bilaterally. Bilateral lower extremity edema present. No calf pain or tenderness noted. SCDs present. GASTROINTESTINAL: Abdomen soft, nontender, nondistended. Active bowel sounds present 4 quadrants. Tolerating diet. Positive bowel movement GENITOURINARY: Continues to void INTEGUMENTARY: Skin is warm and dry with evidence of good perfusion NEUROLOGIC: Cranial nerves II through XII intact MUSKULOSKELETAL: Able to move all extremities, strength equal bilaterally PSYCHIATRIC: Alert and oriented to person place and time INVASIVE LINES AND TUBES: Right sided pigtail present to continuous wall suction, no airleak present, no output in the last 24 hours - Labs CBC & Chem 7: 11/24/24 06:41 11/24/24 06:41 Labs: Abnormal Lab Results - Last 24 Hours (Table) 11/24/24 11/24/24 Range/Units 06:41 06:41 WBC 10.25 H (4.50-10.00) 10*3/uL RBC 2.99 L (4.10-5.20) 10*6/uL Hgb 8.9 L (12.0-15.0) g/dL Hct 26.0 L (37.2-46.3) % Plt Count 573 H (140-440) 10*3/uL MPV 9.2 L (9.5-12.2) fL Sodium 135 L (137-145) mmol/L Potassium 3.4 L (3.5-5.1) mmol/L Calcium 7.1 L (8.4-10.2) mg/dL Microbiology - Last 24 Hours (Table) 11/07/24 09:02 Acid Fast Bacilli Smear - Preliminary Pleural Fluid Acid Fast Bacilli Culture - Preliminary Assessment and Plan Plan: Right sided streptococcal pneumonia with empyema. The patient was given a pigtail catheter and the patient has a loculated right-sided hydropneumothorax the cultures were positive for Streptococcus intermedius, currently with pigtail catheter in place. The patient failed treatment with initial thoracentesis and subsequently pigtail catheter and alteplase treatment. The patient underwent thoracoscopy and decortication on 11/24/2024. Status post thoracoscopic evaluation of the right lung with decortication and single level intercostal nerve block. Intraoperatively, the patient was found to have well-defined abscess and chronically thickened parietal and visceral pleura and diaphragmatic adhesions were taken out and a total of 200 cc of fluid material was aspirated and removed from the chest cavity. The right-sided chest tube was inserted. The patient is postop day #0. Chest x-ray postop reveals a right-sided hydropneumothorax, slightly larger in the chest tube is in a good location. Acute hypoxic respiratory failure, remains on oxygen at 4 L/min nasal cannula Acute leukocytosis, secondary to right pleural space infection. The white cell count is stable Hyponatremia, recovered Raynaud's disease Remote history of smoking History of peptic ulcer disease Plan Titrate oxygen flow to maintain saturation above 90% Patient is currently on 4 L of O2 nasal cannula Keep right-sided chest tube in place and monitor output Daily chest x-ray Continue IV Rocephin and Flagyl per ID Incentive spirometer Monitor white cell count Hemodynamically stable Will continue to follow.
--- NOTE | 2024-11-24 20:48 | PN ---
PROGRESS NOTE DATE OF SERVICE: 11/24/2024 CHIEF COMPLAINT: Chronic right pleural effusion with cystic mass in the right lower lobe. HISTORY OF PRESENT ILLNESS: This lady is going today for her surgical procedure. She is stable. PHYSICAL EXAMINATION: GENERAL: She remains pale. She is asthenic. CHEST: Demonstrates clear breath sounds bilaterally. CARDIAC: Normal. IMPRESSION: Recurrent pleural effusion with cystic right lower lobe lesion. PLAN: Surgery today. MMODL / IJN: [id number] /
--- NOTE | 2024-11-25 09:05 | XR ---
EXAMINATION TYPE: XR chest 1V portable DATE OF EXAM: 11/25/2024 4:58 AM COMPARISON: None. CLINICAL INDICATION: Female, 69 years old with history of post VATS, TECHNIQUE: XR chest 1V portable view(s) obtained. FINDINGS: The heart size is normal. The pulmonary vasculature is normal. There is a moderate size right pneumothorax. A right-sided chest tube is present. Finding is stable from comparison. Small amount hydrothorax is p resent on the right. IMPRESSION: 1. Stable right-sided pneumothorax. Chest tube remains in position. [facility], , 11/25/2024 9:03 AM
[2024-11-25 09:18] LABS: HCT 28.6 % (37.2-46.3); HGB 9.6 g/dL (12.0-15.0); MCH 29.7 pg (27.0-32.0); MCHC 33.6 g/dL (32.0-37.0); MCV 88.5 fL (80.0-97.0); Mean Platelet Volume 10.7 fL (9.5-12.2); Platelet Count 418 10*3/uL (140-440); RBC 3.23 10*6/uL (4.10-5.20); RDW 17.9 % (11.5-14.5); WBC 14.37 10*3/uL (4.50-10.00)
[2024-11-25 09:29] LABS: African American GFR (CKD) >90 (>60 ml/min/1.73 sqM); Anion Gap 6 mmol/L; Blood Urea Nitrogen 13 mg/dL (7-17); Calcium 7.2 mg/dL (8.4-10.2); Carbon Dioxide 26 mmol/L (22-30); Chloride 102 mmol/L (98-107); Glucose 97 mg/dL (74-99); Non-African American GFR(CKD) >90 (>60 ml/min/1.73 sqM); Potassium 3.8 mmol/L (3.5-5.1); Sodium 134 mmol/L (137-145)
--- NOTE | 2024-11-25 11:40 | P.PN ---
Subjective Progress Note Date: 11/25/24 Principal diagnosis: Right basilar masslike consolidation, right loculated effusion, leukocytosis, hyponatremia. Past medical history significant for gastric ulcer, raynaud's, distant remote history of smoking. POD #11 reinsertion of right pigtail catheter by interventional radiology. POD #1 Right thoracoscopy with decortication and single level intercostal nerve block. The patient was seen and examined in follow-up today November 25, 2024 at her bedside on the third floor cardiac stepdown unit. The patient is currently sitting up to the bedside chair, is awake, alert, oriented x 3 and is in no acute apparent distress. The patient denies any complaints of pain or shortness of breath at this time. She reports her pain is well-controlled on her current pain medication regimen. Right pleural chest tube remains in place to low continuous wall suction -20 cm H2O. Continuous airleak is present. Draining scant thin serosanguineous drainage with 10 mL output in the last 8 hours and 50 mL output since surgery. Oxygen saturations are 96% on 2 L nasal cannula and she is achieving 1000 mL on her incentive spirometry. Chest x-ray results reviewed, showing stable right-sided pneumothorax with chest tube in position. Remote telemetry is showing normal sinus rhythm. Laboratory results reviewed. Objective - Vital Signs Vital signs: Vital Signs Temp 97.7 F 11/24/24 23:33 Pulse 87 11/25/24 03:00 Resp 18 11/25/24 03:00 BP 105/65 11/25/24 03:00 Pulse Ox 96 11/25/24 03:00 FiO2 21 11/17/24 11:14 Intake & Output 11/24/24 11/25/24 11/25/24 18:59 06:59 18:59 Intake Total 1368 20 Output Total 1130 251 Balance 238 -231 Weight 58.7 kg Intake: IV 1250 20 Invasive Line 5 20 Oral 118 Output: Chest Tube Drainage 51 Chest Tube Right Upper 51 Posterior Chest Urine 900 200 Pleural Fluid 200 Estimated Blood Loss 30 Other: Voiding Method Toilet # Voids 1 - Exam CONSTITUTIONAL: Appears comfortable, cooperative, no acute distress. RESPIRATORY: Lungs sounds diminished in the bases bilaterally, right greater than left. Respirations symmetrical, nonlabored. Currently on 2 L nasal cannula with oxygen saturation 96%, achieving 1000 mL on her incentive spirometry. Strong cough. CARDIOVASCULAR: S1, S2 present. Regular rate and rhythm. Remote telemetry showing sinus rhythm heart rate 87 bpm. Palpable peripheral pulses bilaterally. No edema present. No calf pain or tenderness noted. SCDs present. GASTROINTESTINAL: Abdomen soft, nontender, nondistended. Active bowel sounds present 4 quadrants. Tolerating diet. GENITOURINARY: Continues to void. INTEGUMENTARY: Skin is warm and dry with with no clubbing or cyanosis present. NEUROLOGIC: Cranial nerves II through XII intact. No focal deficits. MUSKULOSKELETAL: Able to move all extremities, strength equal bilaterally. PSYCHIATRIC: Alert and oriented to person place and time. INVASIVE LINES AND TUBES: Right chest tube drain remains in place to low continuous wall suction -20 cm H2O. Continuous airleak present. Draining scant thin serosanguineous drainage with 10 mL output in the last 8 hours and 50 mL output since surgery. - Allied health notes Allied health notes reviewed: nursing - Labs CBC & Chem 7: 11/25/24 08:09 11/25/24 08:09 Labs: Abnormal Lab Results - Last 24 Hours (Table) 11/24/24 11/24/24 Range/Units 06:41 06:41 WBC 10.25 H (4.50-10.00) 10*3/uL RBC 2.99 L (4.10-5.20) 10*6/uL Hgb 8.9 L (12.0-15.0) g/dL Hct 26.0 L (37.2-46.3) % Plt Count 573 H (140-440) 10*3/uL MPV 9.2 L (9.5-12.2) fL Sodium 135 L (137-145) mmol/L Potassium 3.4 L (3.5-5.1) mmol/L Calcium 7.1 L (8.4-10.2) mg/dL Microbiology - Last 24 Hours (Table) 11/07/24 09:02 Fungal Culture - Preliminary Lung - Right - Imaging and Cardiology Chest x-ray: report reviewed, image reviewed Assessment and Plan Assessment: Right basilar masslike consolidation, malignancy versus infection Right loculated effusion, complicated, related to infection versus cancer, status post right pigtail catheter placement by interventional radiology, pleural fluid culture showed positive for Streptococcus intermedius, status post right thoracoscopy with decortication, single level intercostal nerve block Leukocytosis Hyponatremia Chest pain, cough with sputum secondary to above Recent 8 pound weight loss over 6 weeks History of gastric ulcer Raynaud's Distant remote history of smoking Plan: Continue right pleural chest tube to continuous low wall suction, continue to monitor for airleak resolution and pneumothorax resolution. Encourage use of incentive spirometry 10 times every hour while awake. Encourage nutrition. Increase activity as tolerated, out of bed for all meals. Antibiotics per infectious disease. Continue to monitor daily chest x-rays. Medical management of other comorbidities per internal medicine, pulmonology, and infectious disease. More recommendations to follow based on patient's clinical course. Time with Patient: Less than 30
--- NOTE | 2024-11-25 12:07 | P.PN ---
Subjective Progress Note Date: 11/25/24 69-year-old female presenting the emergency department last night with a chief complaint of right upper quadrant abdominal pain with radiation to the right back. Ongoing for the last 2 days. Workup in the emergency department including abdominal/pelvis CT which does not show any acute intra-abdominal process. Remarkable for right middle lobe cystic lesion and moderate to large right-sided pleural effusion. Follow-up chest CTA did not show any evidence of pulmonary embolism. Right basilar masslike consolidation measuring 5.4 x 5.8 cm, concerning for possible malignancy. Additional surrounding airspace consolidation, possibly superimposed pneumonia. Large right-sided pleural effus ion noted. Severe centrilobular emphysematous changes. Labs remarkable for a CBC with a WBC count of 62.7, hemoglobin 13.4, platelets 801. CMP with a sodium 130, potassium 5, chloride 95, serum bicarb 24, BUN 28, creatinine 0.88, glucose 105. Lactate 2.7 down to 1.1. AST 57, ALT 26, ALP 268. Troponins less than 0.012. NT proBNP 467. Lipase 26. Patient currently being evaluated in emergency department. She is resting comfortably on 2 L/min nasal cannula. SpO2 reading 98%. Again endorses above-mentioned right upper quadrant pain with radiation to the right thoracic level back. Previously, rated 9 out of 10 on a 10 point numerical scale. Started approximately 2 days ago. Denies any nausea, vomiting, change in bowel movements, diarrhea. Does endorse previous congested cough without much sputum production. Denies any significant purulent sputum or hemoptysis. Denies any fevers, chills. No previously diagnosed COPD. She is a former tobacco smoker, quit approximately 9 years ago. Prior to this, she smoked 1 pack, which lasted for almost a month. No family or personal history of lung cancer. No significant unintentional weight loss. No recent outpatient treatments for pneumonias. Her primary care provider is Dr. Muñoz. Given empiric doses of azithromycin, Rocephin, Flagyl, and vancomycin in the ED. Afebrile. Normal saline infusing at 130 mL/h. Nontoxic appearance. Hemodynamic stable. The patient is seen today November 08, 2024 in follow-up on the regular medical floor. She is currently sitting up in bed. Awake and alert in no acute distress. Maintaining good O2 saturations in the 90s on 2 L/min per nasal cannula. She did have a right sided pigtail catheter placed yesterday. She also had a thoracentesis performed yesterday. She continues with hazy yellow output. Her pleural fluid was exudate with a protein of 3.6 and an LDH greater than 2500. Procalcitonin was 2.74. She is currently on Unasyn. Chest x-ray continues to show ongoing moderate to large right pleural effusion with underlying atelectasis and/or consolidation. Minimally decreased compared to previous. Pleural fluid cultures are pending. White count 26.2. Hemoglobin 11.2. Platelets 544. Sodium 134. Potassium 3.7. Bicarb 23. BUN 14. Creatinine 0.52. Viral screen was negative for influenza A/B, RSV, COVID. The patient is seen today November 09, 2024 in follow-up on the regular medical floor. She is awake and alert in no acute distress. She did have some issues with desaturations earlier this morning with minimal activity. Chest x-ray shows worsening left-sided pleural effusion which is now moderate. She is currently maintaining good O2 saturations in the mid 90s on 5 L high flow nasal cannula. She is afebrile. Hemodynamically stable. She did have lytics instilled into the pigtail catheter yesterday. A total of 1420 mL have been returned since. Additional lytics will be instilled today per CT service. She continues to work well with the incentive spirometer. She remains on Unasyn. Pleural fluid cultures pending. Cytology pending. White count 38.6. Hemoglobin 11.5. Platelets 605. Seen today on 11/10/2024, patient is feeling better, breathing easier, chest x- ray is not showing much improvement on the right side pleural effusion. Still undergoing lytic therapy. May have to consider repeat CT of the chest in the next couple of days. Clinically however the patient is doing well, remains on antibiotics, cytology from the pleural effusion came back negative, cultures remain negative, still the differential diagnosis includes malignancy and/or parapneumonic complicated pleural effusion. Patient was seen today on 11/11/2024, patient is doing well, unfortunately patient pulled out her pigtail catheter accidentally, and no more lytic therapy could be given for this patient at this point, the chest x-ray is showing i mprovement, but her initial CT of the chest raised the possibility of malignancy/lung mass, I will go ahead and recommend repeat CT of the chest now for follow-up on the initially abnormal CT of the chest. Clinically I did not believe the patient had lung mass, I felt she had masslike consolidation. And may have resolved based on the fact that the patient has been receiving lytic therapy for her complicated right-sided pleural effusion. The pleural effusion was negative for malignancy. And it was negative for active infection as the cultures have been negative. Patient was seen today on 11/12/2024, patient seems to be comfortable, not in distress, continues to have leukocytosis with WBC count of 24,000, continues to have a right middle lobe cystic lesion, exact etiology is not clear, strongly doubt malignancy I believe is most likely a bulla filled with fluid. Or could represent retained secretions and airway. CT of the chest showed hydropneumothorax, I believe the patient may benefit eventually either from placement of pigtail catheter again or decortication if thoracic surgery is willing. May also require bronchoscopy and biopsy or evaluation of the right middle lobe. At this point in time we are continuing antibiotics, and we need to readdress that pigtail catheter again on Wednesday. Patient was seen today on 11/13/2024, patient is comfortable, not in distress, on nasal cannula patient is supposed to have placement of pigtail catheter again tomorrow for lytic therapy. In the meantime remains on antibiotics, continues to have loculated pleural effusion, and the fluid came back positive for Streptococcus intermedius. Continues to have leukocytosis with WC count of 24.0 hemoglobin 10.3. Patient is on 2 L nasal cannula and O2 sat is 91 to 94% Progress note dated November 14, 2024. 69-year-old female seen today in room 360. She is awake and alert. She is resting comfortably in bed. The patient currently is on Rocephin and Flagyl. She is on 2 L nasal cannula. No IV fluids. The pigtail catheter will be replaced today. She continues to be followed by cardiothoracic surgery. Laboratory data includes a white count of 18.8, hemoglobin 10.6, hematocrit 31. 4, and a platelet count of 506,000. Sodium 134, potassium 3.8, chlorides 106, CO2 22, BUN 7, creatinine 0.49. Glucose is 70. Albumin 1.7. Pleural fluid cultures were positive for Streptococcus intermedius. Chest x-ray shows a persistent right basilar opacity/effusion. Progress note dated November 15, 2024. 69-year-old female seen today in room 360. The patient is resting comfortably in bed. She is currently on 2 L. No IV fluids. She has a right pigtail catheter in place. She is receiving both Rocephin and Flagyl, for streptococcal infection. The patient is receiving tPA, and alpha dornase, as per cardiothoracic surgery. Clinically, she is feeling well. She is awake and alert. No respiratory distress. No new laboratory data today. Chest x-ray shows a right basilar pleural catheter. Right sided pleural effusion has diminished. Progress note dated November 16, 2024. 69-year-old female seen today in room 360. She is sitting up in bed. She is alert and awake. No acute distress. She is continues on nasal O2 at 2 L. She is getting saline at 10 cc an hour. Her right pigtail catheter continues to function. She did receive tPA and alpha dornase today, via cardiothoracic aden evaristo. The patient continues on Rocephin and Flagyl. No new laboratory data today. Chest x-ray today, November 16, shows diminished right lower lobe fluid collection. Drainage catheter, is noted. Progress note dated November 17, 2024. 69-year-old female seen again in room 360. She sitting in the chair next to the hospital bed. She is on room air. She continues on Rocephin and Flagyl. The patient did receive tPA, and alpha dornase today, administered by cardiothoracic surgery. Her chest x-ray continues to show improvement. Clinically, she is very stable. She has a right sided pigtail catheter in place. White count of 17.5, hemoglobin 10.5, hematocrit 30.8, platelet count 703,000. Sodium 133, potassium 4.1, chlorides 108, CO2 23, BUN 3, creatinine 0.56. Glucose is 100. Calcium is 7.0. Albumin is 1.7. Pleural fluid back from November 07, is positive for Streptococcus species. Chest x-ray shows improving right-sided opacities. Progress note dated November 18, 2024. 69-year-old female seen today in room 360. The patient is resting comfortably in bed. She is awake and alert. She is on room air. She is getting saline at 50 cc an hour. Cardiothoracic surgery is not planning to place any lytics, through her right sided pigtail catheter today. Currently, the patient is without complaints. Current laboratory data includes a sodium 135, potassium 5.4, chlorides 111, CO2 19, BUN 6, creatinine 0.57. Calcium is 7.4. Pleural fluid cultures were positive for Streptococcus intermedius. Chest x-ray is essentially unchanged. Progress note dated November 19, 2024. 69-year-old female seen today in room 360. She is lying in bed. She will not receive any tPA or alpha dornase today. She is on 2 L. No IV fluids. Clinically, she looks comfortable. She is in no acute distress. She is not coughing or short of breath. Today's labs include a white count of 14.1, hemoglobin 10.8, hematocrit 32.2, and a platelet count of 675,000. Sodium 136, potassium 4.1, chlorides 110, CO2 20, BUN 7, creatinine 0.58. Pleural fluid cultures were positive for Streptococcus intermedius. Chest x-ray reveals a right sided pleural effusion. Right pigtail catheter is unchanged. Some atelectasis is noted at the bases as well. On 11/20/2024, the patient is being seen for a follow-up. The patient remains on 2 L of oxygen by nasal cannula with pulse ox of 98%. The white cell count is at 12.5 with a hemoglobin 9.8 and the patient remains on IV Rocephin regarding the streptococcal pneumonia/empyema.. Noted the patient had an initial thoracentesis and subsequently the patient had a pigtail catheter inserted into the right hemothorax and the patient has been receiving thrombolytic therapy t hrough the pigtail catheter. Nevertheless, the patient continued to have persistent opacification of the right lung base. The right-sided pigtail catheter is attached to continuous wall suction. No evidence of any air leak and output is minimal at this point in time. A follow-up CAT scan of the chest was done. I reviewed the CAT scan of the chest and the overall progression is suboptimal as the patient continues to have persistent and prominent moderate- sized loculated right-sided pleural effusion in addition to right lower lobe consolidation. There is also significant atelectatic changes lung bases specially on the right. The patient's white cell count is at 12.5 with a hemoglobin 9.8 and a platelet count of 486. BUN is at 7 with a creatinine of 0.5 and a sodium levels at 135. On 11/21/2024, the patient is clinically stable. Repeat chest x-ray was done today and the findings are essentially unchanged the patient continues to have right basilar pleural pigtail drainage catheter with moderate-sized right-sided pleural fluid/consolidation and compressive atelectasis. The patient was given another dose of alteplase. Discussed the case with thoracic surgery and the patient is scheduled to undergo decortication on Wednesday. Meanwhile, the white cell count of 12.5 and hemoglobin 9.8 and platelet count of 486. Electrolytes are all stable. Creatinine is at 0.5. The patient remains on Flagyl and Rocephin. No altered mentation. No chest pain. No other new complaints othe rwise for now. On 11/22/2024, the patient is being seen for a follow-up. The patient was given another alteplase treatment through her pigtail catheter on the right. Since then, she had increased output in order of 500 cc. Repeat chest x-ray was done today and the patient has a loculated hydropneumothorax on the right and the right lung is probably trapped related to her empyema. The patient is scheduled to undergo a video-assisted thoracoscopic surgery and surgical decortication by thoracic surgery on Wednesday which is 2 days from now. She remains on 2 L of oxygen by nasal cannula. She is afebrile. She is hemodynamically stable. Pigtail catheter is in place. Her white cell count is 12.5 with a hemoglobin 9.8 and a platelet count of 486. Sodium is at 135, potassium is at 4.4, bicarb is 20 with a BUN of 7 and a creatinine of 0.5. No altered mentation. No chest pain. No other new complaints otherwise for now. She is using the incentive spirometer. 11/23/2024, the patient is being seen for a follow-up. No new complaints and the patient is currently on room air oxygen. Repeat chest x-ray was done this morning and the chest x-ray showed a pigtail drainage catheter in the right hemithorax with a moderate-sized right-sided hydropneumothorax which remains essentially stable. There are some ongoing atelectatic changes in lung bases bilaterally and a small left-sided pleural effusion. The patient had another dose of alteplase administered to the pigtail catheter and the patient is being scheduled for a video-assisted thoracoscopic surgery in a.m. The white cell count of 12.5 with a hemoglobin 9.8 and a platelet count of 483. BUN 7 with a creatinine of 0.5. Sodium is at 135. She remains on IV Rocephin. She is also on Lasix 20 mg IV every 12 hours and she continues to have lower extremity edema. She remains on Flagyl 500 mg p.o. 3 times daily. ID is on the case. Cardiothoracic surgery is on the case. She has no specific complaints. Using the incentive spirometer. On 11/24/2024, the patient was taken to the operating room. The patient underwent a right thoracoscopy and decortication. The patient also had a single level intercostal nerve block. The patient was found to have a well-defined abscess cavity and chronically thickened parietal and visceral pleural lining the abscess cavity. The patient had a relatively normal pleural at the rest of the lung in the upper and middle lobes and posteriorly and apically. Diaphragmatic adhesions to the chest wall were taken down effectively. 200 cc of purulent material was aspirated intraoperatively. Following that, a 20 Sudanese chest tube was secured in place. Postoperative chest x-ray shows more prominent moderate to large size right-sided hydropneumothorax and the right-sided chest tube is in a good location. The white cell count today is at 10.2 with a hemoglobin of 8.9 and platelet count of 573. BUN is 8 with a creatinine of 0.5 and sodium levels at 135. Remains on IV Rocephin and Flagyl. [place] for pain control. Remains on DuoNeb updrafts [id number]. Postop, she is maintained on oxygen at 4 L with a pulse ox of 98%. On 11/25/2024, the patient is postop day #1 following her thoracoscopy and decortication. She is doing well. The right-sided chest is in place. Patient has ongoing air leak and repeat chest x-ray shows enlargement/stable right-sided loculated pneumothorax in the right lung base. Output from the chest tube is bloody and nonpurulent. Over the past 8 hours, the patient has produced around 10 cc and since surgery the patient produced 50 cc from her right-sided chest tube. She continues use of incentive spirometer. She is awake alert and communicating. She remains on oxygen and she is currently at 2 L/min nasal cannula with a pulse ox of 99%. Pain is under adequate control and the patient remains on IV Rocephin and Flagyl. Remains on Lasix 20 mg IV push every 12 hours. White second of 14.3 with a hemoglobin 9.6 and a platelet count of 418. BUN 30 uric acid 0.6 and a sodium levels at 134. No other complaints otherwise for now. Case was discussed with the cardiothoracic surgery. Objective - Vital Signs Vital signs: Vital Signs Temp 97.7 F 11/24/24 23:33 Pulse 88 11/25/24 08:46 Resp 18 11/25/24 03:00 BP 105/65 11/25/24 03:00 Pulse Ox 96 11/25/24 03:00 FiO2 21 11/17/24 11:14 Intake & Output 11/24/24 11/25/24 11/25/24 18:59 06:59 18:59 Intake Total 1368 20 120 Output Total 1130 251 Balance 238 -231 120 Weight 58.7 kg Intake: IV 1250 20 Invasive Line 5 20 Oral 118 120 Output: Chest Tube Drainage 51 Chest Tube Right Upper 51 Posterior Chest Urine 900 200 Pleural Fluid 200 Estimated Blood Loss 30 Other: Voiding Method Toilet # Voids 1 - Exam CONSTITUTIONAL: Appears comfortable, cooperative, no acute distress, currently on 2 liters of oxygen by nasal cannula RESPIRATORY: Lungs sounds diminished in the right base. Surgical wound site of the right lung area is dry clean and intact and the patient has right-sided chest tube in place, 20 [place]ese, and there is positive airleak and a total amount of output since surgery 60 cc serosanguineous/bloody. CARDIOVASCULAR: S1, S2 present. Regular rate and rhythm. Palpable peripheral pulses bilaterally. Bilateral lower extremity edema present. No calf pain or tenderness noted. SCDs present. GASTROINTESTINAL: Abdomen soft, nontender, nondistended. Active bowel sounds present 4 quadrants. Tolerating diet. Positive bowel movement GENITOURINARY: Continues to void INTEGUMENTARY: Skin is warm and dry with evidence of good perfusion NEUROLOGIC: Cranial nerves II through XII intact MUSKULOSKELETAL: Able to move all extremities, strength equal bilaterally PSYCHIATRIC: Alert and oriented to person place and time INVASIVE LINES AND TUBES: Right sided pigtail present to continuous wall suction, no airleak present, no output in the last 24 hours - Labs CBC & Chem 7: 11/25/24 08:09 11/25/24 08:09 Labs: Microbiology - Last 24 Hours (Table) 11/07/24 09:02 Fungal Culture - Preliminary Lung - Right Assessment and Plan Plan: Right sided streptococcal pneumonia with empyema. The patient was given a pigtail catheter and the patient has a loculated right-sided hydropneumothorax the cultures were positive for Streptococcus intermedius, currently with pigtail catheter in place. The patient failed treatment with initial thoracentesis and subsequently pigtail catheter and alteplase treatment. The patient underwent thoracoscopy and decortication on 11/24/2024. Chest x-ray shows a loculated right-sided pneumothorax and there is incomplete reexpansion of the right lung. Chest tube is in place and there is positive air leak. Status post thoracoscopic evaluation of the right lung with decortication and single level intercostal nerve block. Intraoperatively, the patient was found to have well-defined abscess and chronically thickened parietal and visceral pleura and diaphragmatic adhesions were taken out and a total of 200 cc of fluid material was aspirated and removed from the chest cavity. The right-sided chest tube was inserted. The patient is postop day # 1. Chest x-ray postop reveals a right-sided loculated pneumothorax with positive air leak. Acute hypoxic respiratory failure, remains on oxygen at 2 L/min nasal cannula Acute leukocytosis, secondary to right pleural space infection. The white cell count is stable Hyponatremia, recovered Raynaud's disease Remote history of smoking History of peptic ulcer disease Plan Titrate oxygen flow to maintain saturation above 90% Patient is currently on 2 L of O2 nasal cannula Keep right-sided chest tube in place and monitor output and monitor the airleak Daily chest x-ray Continue IV Rocephin and Flagyl per ID Incentive spirometer Monitor white cell count Hemodynamically stable Will continue to follow. Time with Patient: Greater than 30
--- NOTE | 2024-11-25 22:36 | PN ---
PROGRESS NOTE DATE OF SERVICE: 11/25/2024 CHIEF COMPLAINT: Recurring right pleural effusion or empyema. HISTORY OF PRESENT ILLNESS: This lady is comfortable, following her procedure yesterday. She has had no nausea or vomiting. PHYSICAL EXAMINATION: GENERAL: She remains slightly pale. Chest tube is still in place. CARDIAC: Normal. IMPRESSION: 1. Recurrent right pleural effusion or empyema. 2. Possible right lower lobe abscess. PLAN: Continue with followup with Pulmonology and Surgery as well as Infectious Disease. Discharge arrangements will have to be made next week. MMODL / IJN: [id number] /
--- NOTE | 2024-11-26 09:06 | P.PN ---
Subjective Progress Note Date: 11/26/24 Principal diagnosis: Right basilar masslike consolidation, right loculated effusion, leukocytosis, hyponatremia. Past medical history significant for gastric ulcer, raynaud's, distant remote history of smoking. POD #2 Right thoracoscopy with decortication and single level intercostal nerve block. The patient was seen and examined in follow-up today November 26, 2024 at her bedside on the third floor cardiac stepdown unit. The patient is currently sitting up to the bedside chair, is awake, alert, oriented x 3 and is in no acute apparent distress. The patient denies any complaints shortness of breath at this time, although she is complaining of some pain to her chest tube insertion site, currently rating her pain 5 out of 10 on the pain scale. Right pleural chest tube remains in place to low continuous wall suction -20 cm H2O. No airleak is present. Draining scant thin serosanguineous drainage. Oxygen saturations are 95% on 2 L nasal cannula and she is achieving 1000 mL on her incentive spirometry. Chest x-ray results reviewed. Remote telemetry is showing normal sinus rhythm. Objective - Vital Signs Vital signs: Vital Signs Temp 98.1 F 11/26/24 08:38 Pulse 96 11/26/24 08:38 Resp 16 11/26/24 08:38 BP 89/57 11/26/24 08:38 Pulse Ox 95 11/26/24 08:38 FiO2 21 11/17/24 11:14 Intake & Output 11/25/24 11/26/24 11/26/24 18:59 06:59 18:59 Intake Total 260 40 260 Output Total 705 1328 1 Balance -445 -1288 259 Weight 59.7 kg Intake: IV 20 40 20 Invasive Line 3 20 10 Invasive Line 5 20 20 10 Oral 240 240 Output: Chest Tube Drainage 5 28 1 Chest Tube Right Upper 5 28 1 Posterior Chest Urine 700 1300 Other: Voiding Method Toilet Toilet Toilet # Voids 1 2 - Exam CONSTITUTIONAL: Appears comfortable, cooperative, no acute distress. RESPIRATORY: Lungs sounds diminished in the bases bilaterally, right greater than left. Respirations symmetrical, nonlabored. Currently on 2 L nasal cannula with oxygen saturation 95%, achieving 1000 mL on her incentive spirometry. Strong cough. CARDIOVASCULAR: S1, S2 present. Regular rate and rhythm. Remote telemetry showing sinus rhythm. Palpable peripheral pulses bilaterally. No edema present. No calf pain or tenderness noted. SCDs present. GASTROINTESTINAL: Abdomen soft, nontender, nondistended. Active bowel sounds present 4 quadrants. Tolerating diet. GENITOURINARY: Continues to void. INTEGUMENTARY: Skin is warm and dry with with no clubbing or cyanosis present. NEUROLOGIC: Cranial nerves II through XII intact. No focal deficits. MUSKULOSKELETAL: Able to move all extremities, strength equal bilaterally. PSYCHIATRIC: Alert and oriented to person place and time. INVASIVE LINES AND TUBES: Right chest tube drain remains in place to low continuous wall suction -20 cm H2O. Continuous airleak present. Draining scant thin serosanguineous drainage. - Allied health notes Allied health notes reviewed: nursing - Labs CBC & Chem 7: 11/25/24 08:09 11/25/24 08:09 Labs: Abnormal Lab Results - Last 24 Hours (Table) 11/25/24 11/25/24 Range/Units 08:09 08:09 WBC 14.37 H (4.50-10.00) 10*3/uL RBC 3.23 L (4.10-5.20) 10*6/uL Hgb 9.6 L (12.0-15.0) g/dL Hct 28.6 L (37.2-46.3) % Sodium 134 L (137-145) mmol/L Calcium 7.2 L (8.4-10.2) mg/dL - Imaging and Cardiology Chest x-ray: report reviewed, image reviewed Assessment and Plan Assessment: Right basilar masslike consolidation, malignancy versus infection Right loculated effusion, complicated, related to infection versus cancer, status post right pigtail catheter placement by interventional radiology, pleural fluid culture showed positive for Streptococcus intermedius, status post right thoracoscopy with decortication, single level intercostal nerve block Leukocytosis Hyponatremia Chest pain, cough with sputum secondary to above Recent 8 pound weight loss over 6 weeks History of gastric ulcer Raynaud's Distant remote history of smoking Plan: We will place her right pleural chest tube to waterseal and removed from low continuous wall suction, continue to record and monitor output. Encourage use of incentive spirometry 10 times every hour while awake. Encourage nutrition. Increase activity as tolerated, out of bed for all meals. Antibiotics per infectious disease. Continue to monitor daily chest x-rays. Medical management of other comorbidities per internal medicine, pulmonology, and infectious disease. More recommendations to follow based on patient's clinical course. Time with Patient: Less than 30
--- NOTE | 2024-11-26 11:30 | XR ---
EXAMINATION TYPE: XR chest 1V portable DATE OF EXAM: 11/26/2024 5:37 AM COMPARISON: None. CLINICAL INDICATION: Female, 69 years old with history of Postop right VATS with decortication, TECHNIQUE: XR chest 1V portable view(s) obtained. FINDINGS: The heart size is normal. The pulmonary vasculature is normal. There is a consolidation at the right base. Moderate size right basilar pneumothorax with fluid is pr esent. Some minimal residual right apical pneumothorax is present. Pneumothorax size is slightly dimi nished from the comparison study. Right-sided chest tube remains present. There is some diminishing s ubcutaneous emphysema on the right. Small amount of left pleural fluid is present. IMPRESSION: 1. Slightly diminished size of a moderate loculated right pneumothorax. Chest tube remains present. 2. Right basilar fluid. Minimal left pleural fluid is also present. [facility], , 11/26/2024 11:28 AM
--- NOTE | 2024-11-26 14:04 | P.PN ---
Subjective Progress Note Date: 11/26/24 69-year-old female presenting the emergency department last night with a chief complaint of right upper quadrant abdominal pain with radiation to the right back. Ongoing for the last 2 days. Workup in the emergency department including abdominal/pelvis CT which does not show any acute intra-abdominal process. Remarkable for right middle lobe cystic lesion and moderate to large right-sided pleural effusion. Follow-up chest CTA did not show any evidence of pulmonary embolism. Right basilar masslike consolidation measuring 5.4 x 5.8 cm, concerning for possible malignancy. Additional surrounding airspace consolidation, possibly superimposed pneumonia. Large right-sided pleural effus ion noted. Severe centrilobular emphysematous changes. Labs remarkable for a CBC with a WBC count of 62.7, hemoglobin 13.4, platelets 801. CMP with a sodium 130, potassium 5, chloride 95, serum bicarb 24, BUN 28, creatinine 0.88, glucose 105. Lactate 2.7 down to 1.1. AST 57, ALT 26, ALP 268. Troponins less than 0.012. NT proBNP 467. Lipase 26. Patient currently being evaluated in emergency department. She is resting comfortably on 2 L/min nasal cannula. SpO2 reading 98%. Again endorses above-mentioned right upper quadrant pain with radiation to the right thoracic level back. Previously, rated 9 out of 10 on a 10 point numerical scale. Started approximately 2 days ago. Denies any nausea, vomiting, change in bowel movements, diarrhea. Does endorse previous congested cough without much sputum production. Denies any significant purulent sputum or hemoptysis. Denies any fevers, chills. No previously diagnosed COPD. She is a former tobacco smoker, quit approximately 9 years ago. Prior to this, she smoked 1 pack, which lasted for almost a month. No family or personal history of lung cancer. No significant unintentional weight loss. No recent outpatient treatments for pneumonias. Her primary care provider is Dr. Muñoz. Given empiric doses of azithromycin, Rocephin, Flagyl, and vancomycin in the ED. Afebrile. Normal saline infusing at 130 mL/h. Nontoxic appearance. Hemodynamic stable. The patient is seen today November 08, 2024 in follow-up on the regular medical floor. She is currently sitting up in bed. Awake and alert in no acute distress. Maintaining good O2 saturations in the 90s on 2 L/min per nasal cannula. She did have a right sided pigtail catheter placed yesterday. She also had a thoracentesis performed yesterday. She continues with hazy yellow output. Her pleural fluid was exudate with a protein of 3.6 and an LDH greater than 2500. Procalcitonin was 2.74. She is currently on Unasyn. Chest x-ray continues to show ongoing moderate to large right pleural effusion with underlying atelectasis and/or consolidation. Minimally decreased compared to previous. Pleural fluid cultures are pending. White count 26.2. Hemoglobin 11.2. Platelets 544. Sodium 134. Potassium 3.7. Bicarb 23. BUN 14. Creatinine 0.52. Viral screen was negative for influenza A/B, RSV, COVID. The patient is seen today November 09, 2024 in follow-up on the regular medical floor. She is awake and alert in no acute distress. She did have some issues with desaturations earlier this morning with minimal activity. Chest x-ray shows worsening left-sided pleural effusion which is now moderate. She is currently maintaining good O2 saturations in the mid 90s on 5 L high flow nasal cannula. She is afebrile. Hemodynamically stable. She did have lytics instilled into the pigtail catheter yesterday. A total of 1420 mL have been returned since. Additional lytics will be instilled today per CT service. She continues to work well with the incentive spirometer. She remains on Unasyn. Pleural fluid cultures pending. Cytology pending. White count 38.6. Hemoglobin 11.5. Platelets 605. Seen today on 11/10/2024, patient is feeling better, breathing easier, chest x- ray is not showing much improvement on the right side pleural effusion. Still undergoing lytic therapy. May have to consider repeat CT of the chest in the next couple of days. Clinically however the patient is doing well, remains on antibiotics, cytology from the pleural effusion came back negative, cultures remain negative, still the differential diagnosis includes malignancy and/or parapneumonic complicated pleural effusion. Patient was seen today on 11/11/2024, patient is doing well, unfortunately patient pulled out her pigtail catheter accidentally, and no more lytic therapy could be given for this patient at this point, the chest x-ray is showing i mprovement, but her initial CT of the chest raised the possibility of malignancy/lung mass, I will go ahead and recommend repeat CT of the chest now for follow-up on the initially abnormal CT of the chest. Clinically I did not believe the patient had lung mass, I felt she had masslike consolidation. And may have resolved based on the fact that the patient has been receiving lytic therapy for her complicated right-sided pleural effusion. The pleural effusion was negative for malignancy. And it was negative for active infection as the cultures have been negative. Patient was seen today on 11/12/2024, patient seems to be comfortable, not in distress, continues to have leukocytosis with WBC count of 24,000, continues to have a right middle lobe cystic lesion, exact etiology is not clear, strongly doubt malignancy I believe is most likely a bulla filled with fluid. Or could represent retained secretions and airway. CT of the chest showed hydropneumothorax, I believe the patient may benefit eventually either from placement of pigtail catheter again or decortication if thoracic surgery is willing. May also require bronchoscopy and biopsy or evaluation of the right middle lobe. At this point in time we are continuing antibiotics, and we need to readdress that pigtail catheter again on Wednesday. Patient was seen today on 11/13/2024, patient is comfortable, not in distress, on nasal cannula patient is supposed to have placement of pigtail catheter again tomorrow for lytic therapy. In the meantime remains on antibiotics, continues to have loculated pleural effusion, and the fluid came back positive for Streptococcus intermedius. Continues to have leukocytosis with WC count of 24.0 hemoglobin 10.3. Patient is on 2 L nasal cannula and O2 sat is 91 to 94% Progress note dated November 14, 2024. 69-year-old female seen today in room 360. She is awake and alert. She is resting comfortably in bed. The patient currently is on Rocephin and Flagyl. She is on 2 L nasal cannula. No IV fluids. The pigtail catheter will be replaced today. She continues to be followed by cardiothoracic surgery. Laboratory data includes a white count of 18.8, hemoglobin 10.6, hematocrit 31. 4, and a platelet count of 506,000. Sodium 134, potassium 3.8, chlorides 106, CO2 22, BUN 7, creatinine 0.49. Glucose is 70. Albumin 1.7. Pleural fluid cultures were positive for Streptococcus intermedius. Chest x-ray shows a persistent right basilar opacity/effusion. Progress note dated November 15, 2024. 69-year-old female seen today in room 360. The patient is resting comfortably in bed. She is currently on 2 L. No IV fluids. She has a right pigtail catheter in place. She is receiving both Rocephin and Flagyl, for streptococcal infection. The patient is receiving tPA, and alpha dornase, as per cardiothoracic surgery. Clinically, she is feeling well. She is awake and alert. No respiratory distress. No new laboratory data today. Chest x-ray shows a right basilar pleural catheter. Right sided pleural effusion has diminished. Progress note dated November 16, 2024. 69-year-old female seen today in room 360. She is sitting up in bed. She is alert and awake. No acute distress. She is continues on nasal O2 at 2 L. She is getting saline at 10 cc an hour. Her right pigtail catheter continues to function. She did receive tPA and alpha dornase today, via cardiothoracic aden evaristo. The patient continues on Rocephin and Flagyl. No new laboratory data today. Chest x-ray today, November 16, shows diminished right lower lobe fluid collection. Drainage catheter, is noted. Progress note dated November 17, 2024. 69-year-old female seen again in room 360. She sitting in the chair next to the hospital bed. She is on room air. She continues on Rocephin and Flagyl. The patient did receive tPA, and alpha dornase today, administered by cardiothoracic surgery. Her chest x-ray continues to show improvement. Clinically, she is very stable. She has a right sided pigtail catheter in place. White count of 17.5, hemoglobin 10.5, hematocrit 30.8, platelet count 703,000. Sodium 133, potassium 4.1, chlorides 108, CO2 23, BUN 3, creatinine 0.56. Glucose is 100. Calcium is 7.0. Albumin is 1.7. Pleural fluid back from November 07, is positive for Streptococcus species. Chest x-ray shows improving right-sided opacities. Progress note dated November 18, 2024. 69-year-old female seen today in room 360. The patient is resting comfortably in bed. She is awake and alert. She is on room air. She is getting saline at 50 cc an hour. Cardiothoracic surgery is not planning to place any lytics, through her right sided pigtail catheter today. Currently, the patient is without complaints. Current laboratory data includes a sodium 135, potassium 5.4, chlorides 111, CO2 19, BUN 6, creatinine 0.57. Calcium is 7.4. Pleural fluid cultures were positive for Streptococcus intermedius. Chest x-ray is essentially unchanged. Progress note dated November 19, 2024. 69-year-old female seen today in room 360. She is lying in bed. She will not receive any tPA or alpha dornase today. She is on 2 L. No IV fluids. Clinically, she looks comfortable. She is in no acute distress. She is not coughing or short of breath. Today's labs include a white count of 14.1, hemoglobin 10.8, hematocrit 32.2, and a platelet count of 675,000. Sodium 136, potassium 4.1, chlorides 110, CO2 20, BUN 7, creatinine 0.58. Pleural fluid cultures were positive for Streptococcus intermedius. Chest x-ray reveals a right sided pleural effusion. Right pigtail catheter is unchanged. Some atelectasis is noted at the bases as well. On 11/20/2024, the patient is being seen for a follow-up. The patient remains on 2 L of oxygen by nasal cannula with pulse ox of 98%. The white cell count is at 12.5 with a hemoglobin 9.8 and the patient remains on IV Rocephin regarding the streptococcal pneumonia/empyema.. Noted the patient had an initial thoracentesis and subsequently the patient had a pigtail catheter inserted into the right hemothorax and the patient has been receiving thrombolytic therapy t hrough the pigtail catheter. Nevertheless, the patient continued to have persistent opacification of the right lung base. The right-sided pigtail catheter is attached to continuous wall suction. No evidence of any air leak and output is minimal at this point in time. A follow-up CAT scan of the chest was done. I reviewed the CAT scan of the chest and the overall progression is suboptimal as the patient continues to have persistent and prominent moderate- sized loculated right-sided pleural effusion in addition to right lower lobe consolidation. There is also significant atelectatic changes lung bases specially on the right. The patient's white cell count is at 12.5 with a hemoglobin 9.8 and a platelet count of 486. BUN is at 7 with a creatinine of 0.5 and a sodium levels at 135. On 11/21/2024, the patient is clinically stable. Repeat chest x-ray was done today and the findings are essentially unchanged the patient continues to have right basilar pleural pigtail drainage catheter with moderate-sized right-sided pleural fluid/consolidation and compressive atelectasis. The patient was given another dose of alteplase. Discussed the case with thoracic surgery and the patient is scheduled to undergo decortication on Wednesday. Meanwhile, the white cell count of 12.5 and hemoglobin 9.8 and platelet count of 486. Electrolytes are all stable. Creatinine is at 0.5. The patient remains on Flagyl and Rocephin. No altered mentation. No chest pain. No other new complaints othe rwise for now. On 11/22/2024, the patient is being seen for a follow-up. The patient was given another alteplase treatment through her pigtail catheter on the right. Since then, she had increased output in order of 500 cc. Repeat chest x-ray was done today and the patient has a loculated hydropneumothorax on the right and the right lung is probably trapped related to her empyema. The patient is scheduled to undergo a video-assisted thoracoscopic surgery and surgical decortication by thoracic surgery on Wednesday which is 2 days from now. She remains on 2 L of oxygen by nasal cannula. She is afebrile. She is hemodynamically stable. Pigtail catheter is in place. Her white cell count is 12.5 with a hemoglobin 9.8 and a platelet count of 486. Sodium is at 135, potassium is at 4.4, bicarb is 20 with a BUN of 7 and a creatinine of 0.5. No altered mentation. No chest pain. No other new complaints otherwise for now. She is using the incentive spirometer. 11/23/2024, the patient is being seen for a follow-up. No new complaints and the patient is currently on room air oxygen. Repeat chest x-ray was done this morning and the chest x-ray showed a pigtail drainage catheter in the right hemithorax with a moderate-sized right-sided hydropneumothorax which remains essentially stable. There are some ongoing atelectatic changes in lung bases bilaterally and a small left-sided pleural effusion. The patient had another dose of alteplase administered to the pigtail catheter and the patient is being scheduled for a video-assisted thoracoscopic surgery in a.m. The white cell count of 12.5 with a hemoglobin 9.8 and a platelet count of 483. BUN 7 with a creatinine of 0.5. Sodium is at 135. She remains on IV Rocephin. She is also on Lasix 20 mg IV every 12 hours and she continues to have lower extremity edema. She remains on Flagyl 500 mg p.o. 3 times daily. ID is on the case. Cardiothoracic surgery is on the case. She has no specific complaints. Using the incentive spirometer. On 11/24/2024, the patient was taken to the operating room. The patient underwent a right thoracoscopy and decortication. The patient also had a single level intercostal nerve block. The patient was found to have a well-defined abscess cavity and chronically thickened parietal and visceral pleural lining the abscess cavity. The patient had a relatively normal pleural at the rest of the lung in the upper and middle lobes and posteriorly and apically. Diaphragmatic adhesions to the chest wall were taken down effectively. 200 cc of purulent material was aspirated intraoperatively. Following that, a 20 Angolan chest tube was secured in place. Postoperative chest x-ray shows more prominent moderate to large size right-sided hydropneumothorax and the right-sided chest tube is in a good location. The white cell count today is at 10.2 with a hemoglobin of 8.9 and platelet count of 573. BUN is 8 with a creatinine of 0.5 and sodium levels at 135. Remains on IV Rocephin and Flagyl. Powersite for pain control. Remains on DuoNeb updrafts [id number]. Postop, she is maintained on oxygen at 4 L with a pulse ox of 98%. On 11/25/2024, the patient is postop day #1 following her thoracoscopy and decortication. She is doing well. The right-sided chest is in place. Patient has ongoing air leak and repeat chest x-ray shows enlargement/stable right-sided loculated pneumothorax in the right lung base. Output from the chest tube is bloody and nonpurulent. Over the past 8 hours, the patient has produced around 10 cc and since surgery the patient produced 50 cc from her right-sided chest tube. She continues use of incentive spirometer. She is awake alert and communicating. She remains on oxygen and she is currently at 2 L/min nasal cannula with a pulse ox of 99%. Pain is under adequate control and the patient remains on IV Rocephin and Flagyl. Remains on Lasix 20 mg IV push every 12 hours. White second of 14.3 with a hemoglobin 9.6 and a platelet count of 418. BUN 30 uric acid 0.6 and a sodium levels at 134. No other complaints otherwise for now. Case was discussed with the cardiothoracic surgery. On 11/26/2024, the patient is resting comfortably and the patient denies having any specific complaints. Right-sided chest tube in place and there is no si gnificant air leak on today's evaluation. Output from the chest tube is minimal and the patient is postop day #2 following a thoracoscopy and right lung decortication. Remains on the same antibiotic coverage. Hemodynamically stable. Incentive spirometer. White cell count is at 14.3 from yesterday. No new labs are available from today. Objective - Vital Signs Vital signs: Vital Signs Temp 98.1 F 11/26/24 08:38 Pulse 96 11/26/24 08:38 Resp 16 11/26/24 08:38 BP 89/57 11/26/24 08:38 Pulse Ox 95 11/26/24 08:38 FiO2 21 11/17/24 11:14 Intake & Output 11/25/24 11/26/24 11/26/24 18:59 06:59 18:59 Intake Total 260 40 260 Output Total 705 1328 551 Balance -445 -1288 -291 Weight 59.7 kg Intake: IV 20 40 20 Invasive Line 3 20 10 Invasive Line 5 20 20 10 Oral 240 240 Output: Chest Tube Drainage 5 28 1 Chest Tube Right Upper 5 28 1 Posterior Chest Urine 700 1300 550 Other: Voiding Method Toilet Toilet Toilet # Voids 1 2 1 - Exam CONSTITUTIONAL: Appears comfortable, cooperative, no acute distress, currently on 2 liters of oxygen by nasal cannula RESPIRATORY: Lungs sounds diminished in the right base. Surgical wound site of the right lung area is dry clean and intact and the patient has right-sided chest tube in place, 20 [place]olan, and there is positive airleak and a total amount of output since surgery 60 cc serosanguineous/bloody. CARDIOVASCULAR: S1, S2 present. Regular rate and rhythm. Palpable peripheral pulses bilaterally. Bilateral lower extremity edema present. No calf pain or tenderness noted. SCDs present. GASTROINTESTINAL: Abdomen soft, nontender, nondistended. Active bowel sounds present 4 quadrants. Tolerating diet. Positive bowel movement GENITOURINARY: Continues to void INTEGUMENTARY: Skin is warm and dry with evidence of good perfusion NEUROLOGIC: Cranial nerves II through XII intact MUSKULOSKELETAL: Able to move all extremities, strength equal bilaterally PSYCHIATRIC: Alert and oriented to person place and time INVASIVE LINES AND TUBES: Right sided pigtail present to continuous wall suction, no airleak present, no output in the last 24 hours - Labs CBC & Chem 7: 11/25/24 08:09 11/25/24 08:09 Assessment and Plan Plan: Right sided streptococcal pneumonia with empyema. The patient was given a pigtail catheter and the patient has a loculated right-sided hydropneumothorax the cultures were positive for Streptococcus intermedius, currently with pigtail catheter in place. The patient failed treatment with initial thoracentesis and subsequently pigtail catheter and alteplase treatment. The patient underwent thoracoscopy and decortication on 11/24/2024. Chest x-ray shows a loculated right-sided pneumothorax and there is incomplete reexpansion of the right lung. Chest tube is in place and there is no air leak on today's evaluation. Right- sided pneumothorax was loculated and remained stable on today's chest x-ray. Status post thoracoscopic evaluation of the right lung with decortication and single level intercostal nerve block. Intraoperatively, the patient was found to have well-defined abscess and chronically thickened parietal and visceral pleura and diaphragmatic adhesions were taken out and a total of 200 cc of fluid material was aspirated and removed from the chest cavity. The right-sided chest tube was inserted. The patient is postop day # 2 chest x-ray postop reveals a right-sided loculated pneumothorax with no air leak Acute hypoxic respiratory failure, remains on oxygen at 2 L/min nasal cannula Acute leukocytosis, secondary to right pleural space infection. The white cell count is stable Hyponatremia, recovered Raynaud's disease Remote history of smoking History of peptic ulcer disease Plan Titrate oxygen flow to maintain saturation above 90% Patient is currently on 2 L of O2 nasal cannula Keep right-sided chest tube in place Daily chest x-ray Continue IV Rocephin and Flagyl per ID Incentive spirometer Monitor white cell count Hemodynamically stable Will continue to follow.
--- NOTE | 2024-11-26 18:23 | P.PN ---
Subjective Progress Note Date: 11/25/24 Principal diagnosis: Reason for follow-up is pneumonia/empyema Patient is a 69-year-old female with a past medical history significant for ulcer Raynaud's phenomena and osteoporosis presenting to the hospital for evaluation of right-sided chest pain and cough, patient be diagnosed with right-sided effusion history of empyema and pneumonia prompted this consultation.Patient is status post right thoracoscopy with decortication for right-sided empyema no OR culture procedure completed on 11/24/2024 On today's evaluation that is 11/26/2023, patient did have a temperature of 98 F this morning and denies having any chills, patient is on 2 L current oxygen and breathing comfortably no chest pain or cough, the patient did not have any nausea vomiting abdominal pain or any diarrhea. Patient white count is 14.37, creatinine 0.63 Objective - Vital Signs Vital signs: Vital Signs Temp 97.7 F 11/25/24 09:10 Pulse 89 11/25/24 15:53 Resp 15 11/25/24 15:53 BP 94/55 11/25/24 15:53 Pulse Ox 91 L 11/25/24 15:53 FiO2 21 11/17/24 11:14 Intake & Output 11/24/24 11/25/24 11/25/24 18:59 06:59 18:59 Intake Total 1368 20 260 Output Total 1130 251 705 Balance 238 231 -445 Weight 58.7 kg Intake: IV 1250 20 20 Invasive Line 5 20 20 Oral 118 240 Output: Chest Tube Drainage 51 5 Chest Tube Right Upper 51 5 Posterior Chest Urine 900 200 700 Pleural Fluid 200 Estimated Blood Loss 30 Other: Voiding Method Toilet Toilet # Voids 1 1 - Exam GENERAL DESCRIPTION: An elderly female lying in bed in no distress RESPIRATORY SYSTEM: Unlabored breathing , decreased breath sounds at bases HEART: S1 S2 regular rate and rhythm , ABDOMEN: Soft , no tenderness EXTREMITIES: No edema feet - Labs CBC & Chem 7: 11/25/24 08:09 11/25/24 08:09 Labs: Abnormal Lab Results - Last 24 Hours (Table) 11/25/24 11/25/24 Range/Units 08:09 08:09 WBC 14.37 H (4.50-10.00) 10*3/uL RBC 3.23 L (4.10-5.20) 10*6/uL Hgb 9.6 L (12.0-15.0) g/dL Hct 28.6 L (37.2-46.3) % Sodium 134 L (137-145) mmol/L Calcium 7.2 L (8.4-10.2) mg/dL Microbiology - Last 24 Hours (Table) 11/07/24 09:02 Fungal Culture - Preliminary Lung - Right Assessment and Plan (1) Sepsis Current Visit: Yes Status: Acute Code(s): A41.9 - SEPSIS, UNSPECIFIED ORGANISM SNOMED Code(s): 55139215 (2) Empyema lung Current Visit: Yes Status: Acute Code(s): J86.9 - PYOTHORAX WITHOUT FISTULA SNOMED Code(s): 15831786 (3) Pneumonia Current Visit: Yes Status: Acute Code(s): J18.9 - PNEUMONIA, UNSPECIFIED ORGANISM SNOMED Code(s): 807009087 Plan: 1patient presented to hospital with sepsis in this patient who did have tachypnea and tachycardia elevated white count as well as elevated lactic acid meeting criteria for SIRS/sepsis source is right-sided pneumonia with a question of postobstructive and a possible component of empyema likely community-acquired pathogen in this patient with no history of recent antibiotic exposure or flulike symptoms 2-patient is afebrile pleural fluid culture currently growing Streptococcus intermedius micro lab unable to do sensitivity as reported organism not growing 3patient is afebrile, patient did have repeat CT of the chest on 11/20/2024 concerning for persistent effusion and consolidation, the patient status post right-sided thoracoscopy and decortication completed on 11/24/2024 no OR culture 4patient white count slightly up today that we will monitor closely questionably reactive postsurgery, to continue with Rocephin and Flagyl and monitor clinical course closely Dictation was produced using [employer] dictation software. please excuse any grammatical, word or spelling errors. Time with Patient: Less than 30
--- NOTE | 2024-11-26 18:24 | P.PN ---
Subjective Progress Note Date: 11/26/24 Principal diagnosis: Reason for follow-up is pneumonia/empyema Patient is a 69-year-old female with a past medical history significant for ulcer Raynaud's phenomena and osteoporosis presenting to the hospital for evaluation of right-sided chest pain and cough, patient be diagnosed with right-sided effusion history of empyema and pneumonia prompted this consultation.Patient is status post right thoracoscopy with decortication for right-sided empyema no OR culture procedure completed on 11/24/2024 On today's evaluation that is 11/26/2024, Patient is afebrile patient is currently on 2 L nasal oxygen and denies having any shortness of breath, the patient denies any chest pain or cough, the patient denies any nausea vomiting did not have any abdominal pain and no diarrhea No lab draw today Objective - Vital Signs Vital signs: Vital Signs Temp 98.1 F 11/26/24 08:38 Pulse 92 11/26/24 15:27 Resp 17 11/26/24 11:28 BP 97/62 11/26/24 15:27 Pulse Ox 95 11/26/24 15:27 FiO2 21 11/17/24 11:14 Intake & Output 11/25/24 11/26/24 11/26/24 18:59 06:59 18:59 Intake Total 260 40 520 Output Total 705 1328 1099 Balance -729 -1412 -783 Weight 59.7 kg Intake: IV 20 40 40 Invasive Line 3 20 20 Invasive Line 5 20 20 20 Oral 240 480 Output: Chest Tube Drainage 5 28 49 Chest Tube Right Upper 5 28 49 Posterior Chest Urine 700 1300 1050 Other: Voiding Method Toilet Toilet Toilet # Voids 1 2 1 # Bowel Movements 1 - Exam GENERAL DESCRIPTION: An elderly female lying in bed in no distress RESPIRATORY SYSTEM: Unlabored breathing , decreased breath sounds at bases HEART: S1 S2 regular rate and rhythm , ABDOMEN: Soft , no tenderness EXTREMITIES: No edema feet - Labs CBC & Chem 7: 11/25/24 08:09 11/25/24 08:09 Assessment and Plan (1) Sepsis Current Visit: Yes Status: Acute Code(s): A41.9 - SEPSIS, UNSPECIFIED ORGANISM SNOMED Code(s): 34576152 (2) Empyema lung Current Visit: Yes Status: Acute Code(s): J86.9 - PYOTHORAX WITHOUT FISTULA SNOMED Code(s): 13483190 (3) Pneumonia Current Visit: Yes Status: Acute Code(s): J18.9 - PNEUMONIA, UNSPECIFIED ORGANISM SNOMED Code(s): 296070021 Plan: 1patient presented to hospital with sepsis in this patient who did have tachypnea and tachycardia elevated white count as well as elevated lactic acid meeting criteria for SIRS/sepsis source is right-sided pneumonia with a question of postobstructive and a possible component of empyema likely community-acquired pathogen in this patient with no history of recent antibiotic exposure or flulike symptoms 2-patient is afebrile pleural fluid culture currently growing Streptococcus intermedius micro lab unable to do sensitivity as reported organism not growing 3patient is afebrile, patient did have repeat CT of the chest on 11/20/2024 concerning for persistent effusion and consolidation, the patient status post right-sided thoracoscopy and decortication completed on 11/24/2024 no OR culture 4patient white count slightly up yesterday no CBC was done today, questionably reactive postsurgery we will repeat a CBC with a.m. lab and for now to continue with Rocephin and Flagyl and monitor clinical course closely Dictation was produced using [employer] dictation software. please excuse any grammatical, word or spelling errors. Time with Patient: Less than 30
--- NOTE | 2024-11-26 21:50 | PN ---
PROGRESS NOTE CHIEF COMPLAINT: Status post VATS procedure and pleurodesis. HISTORY OF PRESENT ILLNESS: This lady is doing fairly well, and she is comfortable. Chest tubes are still in place. She has had no fever or chills. PHYSICAL EXAMINATION: CHEST: Breath sounds are heard bilaterally. Chest tube still present in the right chest. IMPRESSION: Empyema. PLAN: No change in her program from my perspective at this time. MMODL / IJN: [id number] /
--- NOTE | 2024-11-27 07:38 | XR ---
EXAMINATION TYPE: XR chest 1V portable DATE OF EXAM: 11/27/2024 6:44 AM COMPARISON: Multiple radiographs, with the most recent on 11/26/2024 TECHNIQUE: XR chest 1V portable Portable AP radiograph of the chest. CLINICAL INDICATION:Female, 69 years old with history of Postop right VATS with decortication; FINDINGS: Lungs/Pleura: Increasing moderate size right hydropneumothorax. Right chest tube is in stable positio n. Right mid and lower lung patchy airspace opacities and consolidation. Similar small left pleural e ffusion. Pulmonary vascularity: Unremarkable. Heart/mediastinum: Cardiomediastinal silhouette is unremarkable. No mediastinal shift. Atheroscleroti c calcifications are seen in the aorta. Musculoskeletal: No acute osseous pathology. Other findings: Slightly decreased right chest wall subcutaneous emphysema. IMPRESSION: 1. Slightly increased moderate-sized right hydropneumothorax with stable right chest tube. 2. Similar right basilar patchy airspace opacities and consolidation concerning for atelectasis and/ or infiltrate. 3. Similar small pleural effusion. [facility], , 11/27/2024 7:36 AM
[2024-11-27 07:44] LABS: ALT 23 U/L (4-34); African American GFR (CKD) >90 (>60 ml/min/1.73 sqM); Albumin 1.9 g/dL (3.5-5.0); Anion Gap 3 mmol/L; Blood Urea Nitrogen 10 mg/dL (7-17); C Reactive Protein 1.6 mg/dL (<1.0); Calcium 7.3 mg/dL (8.4-10.2); Carbon Dioxide 32 mmol/L (22-30); Chloride 97 mmol/L (98-107); Glucose 76 mg/dL (74-99); Non-African American GFR(CKD) >90 (>60 ml/min/1.73 sqM); Sodium 132 mmol/L (137-145); Total Bilirubin 0.4 mg/dL (0.2-1.3); Total Protein 4.6 g/dL (6.3-8.2)
[2024-11-27 07:45] LABS: Basophils # (A) 0.05 10*3/uL (0.00-0.10); Basophils % (A) 0.6 %; Eosinophils # (A) 0.11 10*3/uL (0.04-0.35); Eosinophils % (A) 1.4 %; HCT 27.7 % (37.2-46.3); HGB 9.5 g/dL (12.0-15.0); Lymphocytes # (A) 1.41 10*3/uL (0.90-5.00); Lymphocytes % (A) 17.9 %; MCH 30.5 pg (27.0-32.0); MCHC 34.3 g/dL (32.0-37.0); MCV 89.1 fL (80.0-97.0); Mean Platelet Volume 9.4 fL (9.5-12.2); Monocytes # (A) 0.85 10*3/uL (0.20-1.00); Monocytes % (A) 10.8 %; Neutrophils # (A) 5.38 10*3/uL (1.80-7.70); Neutrophils % (A) 68.3 %; Platelet Count 477 10*3/uL (140-440); RBC 3.11 10*6/uL (4.10-5.20); RDW 18.6 % (11.5-14.5); WBC 7.88 10*3/uL (4.50-10.00)
[2024-11-27 07:59] LABS: AST 38 U/L (14-36); Alkaline Phosphatase 88 U/L (38-126); Potassium 3.5 mmol/L (3.5-5.1)
--- NOTE | 2024-11-27 16:18 | P.PN ---
Subjective Progress Note Date: 11/27/24 69-year-old female presenting the emergency department last night with a chief complaint of right upper quadrant abdominal pain with radiation to the right back. Ongoing for the last 2 days. Workup in the emergency department including abdominal/pelvis CT which does not show any acute intra-abdominal process. Remarkable for right middle lobe cystic lesion and moderate to large right-sided pleural effusion. Follow-up chest CTA did not show any evidence of pulmonary embolism. Right basilar masslike consolidation measuring 5.4 x 5.8 cm, concerning for possible malignancy. Additional surrounding airspace consolidation, possibly superimposed pneumonia. Large right-sided pleural effusion noted. Severe centrilobular emphysematous changes. Labs remarkable for a CBC with a WBC count of 62.7, hemoglobin 13.4, platelets 801. CMP with a sodium 130, potassium 5, chloride 95, serum bicarb 24, BUN 28, creatinine 0.88, glucose 105. Lactate 2.7 down to 1.1. AST 57, ALT 26, ALP 268. Troponins less than 0.012. NT proBNP 467. Lipase 26. Patient currently being evaluated in emergency department. She is resting comfortably on 2 L/min nasal cannula. SpO2 reading 98%. Again endorses above-mentioned right upper quadrant pain with radiation to the right thoracic level back. Previously, rated 9 out of 10 on a 10 point numerical scale. Started approximately 2 days ago. Denies any nausea, vomiting, change in bowel movements, diarrhea. Does endorse previous congested cough without much sputum production. Denies any significant purulent sputum or hemoptysis. Denies any fevers, chills. No previously diagnosed COPD. She is a former tobacco smoker, quit approximately 9 years ago. Prior to this, she smoked 1 pack, which lasted for almost a month. No family or personal history of lung cancer. No significant unintentional weight loss. No recent outpatient treatments for pneumonias. Her primary care provider is Dr. Muñoz. Given empiric doses of azithromycin, Rocephin, Flagyl, and vancomycin in the ED. Afebrile. Normal saline infusing at 130 mL/h. Nontoxic appearance. Hemodynamic stable. The patient is seen today November 08, 2024 in follow-up on the regular medical floor. She is currently sitting up in bed. Awake and alert in no acute distress. Maintaining good O2 saturations in the 90s on 2 L/min per nasal cannula. She did have a right sided pigtail catheter placed yesterday. She also had a thoracentesis performed yesterday. She continues with hazy yellow output. Her pleural fluid was exudate with a protein of 3.6 and an LDH greater than 2500. Procalcitonin was 2.74. She is currently on Unasyn. Chest x-ray continues to show ongoing moderate to large right pleural effusion with underlying atelectasis and/or consolidation. Minimally decreased compared to previous. Pleural fluid cultures are pending. White count 26.2. Hemoglobin 11.2. Platelets 544. Sodium 134. Potassium 3.7. Bicarb 23. BUN 14. Creatinine 0.52. Viral screen was negative for influenza A/B, RSV, COVID. The patient is seen today November 09, 2024 in follow-up on the regular medical floor. She is awake and alert in no acute distress. She did have some issues with desaturations earlier this morning with minimal activity. Chest x-ray shows worsening left-sided pleural effusion which is now moderate. She is currently maintaining good O2 saturations in the mid 90s on 5 L high flow nasal cannula. She is afebrile. Hemodynamically stable. She did have lytics instilled into the pigtail catheter yesterday. A total of 1420 mL have been returned since. Additional lytics will be instilled today per CT service. She continues to work well with the incentive spirometer. She remains on Unasyn. Pleural fluid cultures pending. Cytology pending. White count 38.6. Hemoglobin 11.5. Platelets 605. The patient is seen today November 27, 2024 in follow-up on the selective care unit. She has since undergone decortication of the loculated fluid in her right chest on November 24, 2024. Right sided chest tube remains in place. Pleur-evac to wall suction. Still with a positive leak. Chest x-ray reveals slightly increased moderate size right hydropneumothorax with stable right chest tube. Similar right basilar patchy airspace opacities and consolidation concerning for atelectasis and/or infiltrate. Small similar pleural effusion. Follow-up pleural fluid cultures revealed no growth. White count 7.8. Hemoglobin 9.5. Platelets 477. Sodium 132. Potassium 3.5. Bicarb 32. BUN 10. Creatinine 0.57. Glucose 76. She continues to work with the incentive spirometer. She remains on bronchodilators. Antibiotics in the form of ceftriaxone. Heparin for DVT prophylaxis. Remains on IV diuretics. Currently in a -1.2 L balance. Objective - Vital Signs Vital signs: Vital Signs Temp 97.9 F 11/27/24 11:50 Pulse 81 11/27/24 14:57 Resp 18 11/27/24 14:57 BP 90/52 11/27/24 11:50 Pulse Ox 95 11/27/24 11:50 FiO2 21 11/17/24 11:14 Intake & Output 11/26/24 11/27/24 11/27/24 18:59 06:59 18:59 Intake Total 520 60 208 Output Total 1099 712 0 Balance -579 -652 208 Weight 59.3 kg Intake: IV 40 60 30 Invasive Line 3 20 30 10 Invasive Line 5 20 30 20 Oral 480 178 Output: Chest Tube Drainage 49 12 0 Chest Tube Right Upper 49 12 0 Posterior Chest Urine 1050 700 Other: Voiding Method Toilet Toilet Toilet # Voids 1 1 1 # Bowel Movements 1 1 1 - Exam GENERAL EXAM: Alert, cachectic 69-year-old female, up in a chair, on 3 L nasal cannula, comfortable in no apparent distress. HEAD: Normocephalic and atraumatic EYES: Normal reaction of pupils, equal size. NOSE: Clear with pink turbinates. THROAT: No erythema or exudates. NECK: No masses, no JVD. CHEST: No chest wall deformity. Right sided chest tube in place to Pleur-evac to wall suction. Positive leak LUNGS: Equal air entry with diminished right lower lobe lung sounds. No conversational dyspnea. CVS: S1 and S2 normal with no audible murmur, regular rhythm. No extra heart sounds ABDOMEN: No hepatosplenomegaly, active bowel sounds, no guarding or rigidity. SPINE: No scoliosis or deformity SKIN: No rashes CENTRAL NERVOUS SYSTEM: No focal deficits, tone is normal in all 4 extremities. EXTREMITIES: There is no peripheral edema, clubbing, or cyanosis. Peripheral p ulses are intact. - Labs CBC & Chem 7: 11/27/24 06:39 11/27/24 06:39 Labs: Abnormal Lab Results - Last 24 Hours (Table) 11/27/24 11/27/24 Range/Units 06:39 06:39 RBC 3.11 L (4.10-5.20) 10*6/uL Hgb 9.5 L (12.0-15.0) g/dL Hct 27.7 L (37.2-46.3) % Plt Count 477 H (140-440) 10*3/uL MPV 9.4 L (9.5-12.2) fL Immature Gran # 0.08 H (0.00-0.04) 10*3/uL Sodium 132 L (137-145) mmol/L Chloride 97 L (98-107) mmol/L Carbon Dioxide 32 H (22-30) mmol/L Calcium 7.3 L (8.4-10.2) mg/dL AST 38 H (14-36) U/L C-Reactive Protein 1.6 H (<1.0) mg/dL Total Protein 4.6 L (6.3-8.2) g/dL Albumin 1.9 L (3.5-5.0) g/dL Assessment and Plan Assessment: Right basilar masslike consolidation measuring 5.4 x 5.8 cm, consider malignancy; superimposed bacterial pneumonia is not excluded. Procalcitonin 2.74. Currently on ceftriaxone Large right-sided pleural effusion, status post thoracentesis with 500 cc of thick turbid fluid returned, status post pigtail catheter insertion. Status post decortication and placement of a 20 [place] chest tube on November 24, 2024. Remains in place to Pleur-evac and wall suction. Positive leak Acute hypoxemic respiratory failure, secondary to above, currently on 3 L/min nasal cannula, secondary to above Acute leukocytosis, secondary to above, improved Hyponatremia, appears euvolemic, improved Former tobacco smoker, quit approximately 9 years ago Plan: The patient was seen and evaluated Chest x-ray, labs and medications reviewed Right sided chest tube in place Remains to Pleur-evac and wall suction Positive leak Remains on ceftriaxone Continue diuretics Continue bronchodilators Heparin for DVT prophylaxis Continue the increased use of the incentive spirometer Titrate down the FiO2 as tolerated Increase her activity as tolerated We will continue to follow I have personally seen and examined the patient, performed the documentation and the assessment and plan as written. Number of minutes spent on the visit: 10 Dictation was produced using [employer] software. Please excuse any grammatical, word or spelling errors.
--- NOTE | 2024-11-27 17:10 | P.PN ---
Subjective Progress Note Date: 11/27/24 Principal diagnosis: Right basilar masslike consolidation, right loculated effusion, leukocytosis, hyponatremia. Past medical history significant for gastric ulcer, raynaud's, distant remote history of smoking. POD #3 Right thoracoscopy with decortication and single level intercostal nerve block. The patient was seen and examined in follow-up today November 27, 2024 at her bedside on the third floor cardiac stepdown unit. The patient is currently sitting up to the bedside chair, is awake, alert, oriented x 3 and is in no acute apparent distress. The patient denies any complaints shortness of breath at this time, although she is complaining of some pain to her chest tube insertion site, currently rating her pain 3 out of 10 on the pain scale. Right pleural chest tube remains in place to low continuous waterseal. No airleak is present. Draining scant thin serosanguineous drainage. Oxygen saturations are 97% on 3 L nasal cannula and she is achieving 1000 mL on her incentive spirometry. Chest x-ray results reviewed. Remote telemetry is showing normal sinus rhythm. Objective - Vital Signs Vital signs: Vital Signs Temp 97.9 F 11/27/24 11:50 Pulse 81 11/27/24 14:57 Resp 18 11/27/24 14:57 BP 90/52 11/27/24 11:50 Pulse Ox 95 11/27/24 11:50 FiO2 21 11/17/24 11:14 Intake & Output 11/26/24 11/27/24 11/27/24 18:59 06:59 18:59 Intake Total 520 60 208 Output Total 1099 712 0 Balance -579 -652 208 Weight 59.3 kg Intake: IV 40 60 30 Invasive Line 3 20 30 10 Invasive Line 5 20 30 20 Oral 480 178 Output: Chest Tube Drainage 49 12 0 Chest Tube Right Upper 49 12 0 Posterior Chest Urine 1050 700 Other: Voiding Method Toilet Toilet Toilet # Voids 1 1 1 # Bowel Movements 1 1 1 - Exam CONSTITUTIONAL: Appears comfortable, cooperative, no acute distress. RESPIRATORY: Lungs sounds diminished in the bases bilaterally, right greater than left. Respirations symmetrical, nonlabored. Currently on 3 L nasal cannula with oxygen saturation 97%, achieving 1000 mL on her incentive spirometry. Strong cough. CARDIOVASCULAR: S1, S2 present. Regular rate and rhythm. Remote telemetry showing sinus rhythm. Palpable peripheral pulses bilaterally. No edema present. No calf pain or tenderness noted. SCDs present. GASTROINTESTINAL: Abdomen soft, nontender, nondistended. Active bowel sounds present 4 quadrants. Tolerating diet. GENITOURINARY: Continues to void. INTEGUMENTARY: Skin is warm and dry with with no clubbing or cyanosis present. NEUROLOGIC: Cranial nerves II through XII intact. No focal deficits. MUSKULOSKELETAL: Able to move all extremities, strength equal bilaterally. PSYCHIATRIC: Alert and oriented to person place and time. INVASIVE LINES AND TUBES: Right chest tube drain [facility] to [email or web address] airleak present. Draining scant thin serosanguineous drainage. - Allied health notes Allied health notes reviewed: nursing - Labs CBC & Chem 7: 11/27/24 06:39 11/27/24 06:39 Labs: Abnormal Lab Results - Last 24 Hours (Table) 11/27/24 11/27/24 Range/Units 06:39 06:39 RBC 3.11 L (4.10-5.20) 10*6/uL Hgb 9.5 L (12.0-15.0) g/dL Hct 27.7 L (37.2-46.3) % Plt Count 477 H (140-440) 10*3/uL MPV 9.4 L (9.5-12.2) fL Immature Gran # 0.08 H (0.00-0.04) 10*3/uL Sodium 132 L (137-145) mmol/L Chloride 97 L (98-107) mmol/L Carbon Dioxide 32 H (22-30) mmol/L Calcium 7.3 L (8.4-10.2) mg/dL AST 38 H (14-36) U/L C-Reactive Protein 1.6 H (<1.0) mg/dL Total Protein 4.6 L (6.3-8.2) g/dL Albumin 1.9 L (3.5-5.0) g/dL - Imaging and Cardiology Chest x-ray: report reviewed, image reviewed Assessment and Plan Assessment: Right basilar masslike consolidation, malignancy versus infection Right loculated effusion, complicated, related to infection versus cancer, status post right pigtail catheter placement by interventional radiology, pleura l fluid culture showed positive for Streptococcus intermedius, status post right thoracoscopy with decortication, single level intercostal nerve block Leukocytosis Hyponatremia Chest pain, cough with sputum secondary to above Recent 8 pound weight loss over 6 weeks History of gastric ulcer Raynaud's Distant remote history of smoking Plan: We will place her right pleural chest tube to suction as her chest x-ray this morning shows a increase in size of her right pneumothorax, continue to record and monitor output. Encourage use of incentive spirometry 10 times every hour while awake. Encourage nutrition. Increase activity as tolerated, out of bed for all meals. Antibiotics per infectious disease. Continue to monitor daily chest x-rays. Medical management of other comorbidities per internal medicine, pulmonology, and infectious disease. More recommendations to follow based on patient's clinical course. Time with Patient: Less than 30
--- NOTE | 2024-11-28 00:18 | PN ---
PROGRESS NOTE DATE OF SERVICE: 11/27/2024 CHIEF COMPLAINT: Right empyema, status post VATS procedure. HISTORY OF PRESENT ILLNESS: This lady is doing well. Her white count is coming down slowly. Chest tube still in place. PHYSICAL EXAMINATION: LUNGS: Breath sounds are heard bilaterally. CARDIAC: Normal. ABDOMEN: Soft, nontender. IMPRESSION: Right-sided empyema status post VATS procedure. PLAN: Continue to follow until chest tube is removed after which she will probably require her rehab stay. MMODL / IJN: [id number] /
--- NOTE | 2024-11-28 07:30 | XR ---
EXAMINATION TYPE: XR chest 1V portable DATE OF EXAM: 11/28/2024 7:19 AM COMPARISON: 11/27/2024 CLINICAL INDICATION: Female, 69 years old with history of Right empyema, status post right VATS, TECHNIQUE: XR chest 1V portable view(s) obtained. FINDINGS: The heart size is normal. The pulmonary vasculature is normal. The loculated pneumothorax remains present. Right lower lobe consolidation is stable. Right-sided chest tube is present IMPRESSION: 1. Stable moderate right pneumothorax. Right-sided chest tube remains present 2. Right lower lobe atelectasis likely present. [facility], , 11/28/2024 7:28 AM
--- NOTE | 2024-11-28 09:34 | P.PN ---
Subjective Progress Note Date: 11/28/24 Principal diagnosis: Right basilar masslike consolidation, right loculated effusion, leukocytosis, hyponatremia. Past medical history significant for gastric ulcer, raynaud's, distant remote history of smoking. POD #4 Right thoracoscopy with decortication and single level intercostal nerve block. The patient was seen and examined in follow-up today November 28, 2024 at her beds dc on the third floor cardiac stepdown unit. She is currently sitting up to the bedside chair, is awake, alert, oriented x 3 and is in no acute apparent distress. She denies any complaints of pain or shortness of breath at this time. Her right pleural chest tube remains in place to low continuous wall suction -20 cm H2O. Intermittent airleak is present with coughing and using her incentive spirometry. Draining scant serosanguineous drainage with 5 mL output in the last 8 hours and 70 mL output in the last 24 hours. Oxygen saturations are 92% on 2 L nasal cannula and she is achieving 1000 mL on her incentive spirometry with encouragement. Remote telemetry showing normal sinus rhythm h eart rate 88 bpm. She reports she has been up ambulating in her room and in the hallway with standby assistance nursing and therapy staff and tolerating well. Chest x-ray results reviewed. Objective - Vital Signs Vital signs: Vital Signs Temp 98.2 F 11/28/24 07:38 Pulse 84 11/28/24 08:32 Resp 17 11/28/24 07:38 BP 100/63 11/28/24 07:38 Pulse Ox 97 11/28/24 08:21 FiO2 21 11/17/24 11:14 Intake & Output 11/27/24 11/28/24 11/28/24 18:59 06:59 18:59 Intake Total 208 20 Output Total 45 0 5 Balance 163 20 -5 Weight 57.6 kg Intake: IV 30 20 Invasive Line 3 10 Invasive Line 5 20 20 Oral 178 Output: Chest Tube Drainage 45 0 5 Chest Tube Right Upper 45 0 5 Posterior Chest Other: Voiding Method Toilet Toilet # Voids 1 # Bowel Movements 1 - Exam CONSTITUTIONAL: Appears comfortable, cooperative, no acute distress. RESPIRATORY: Lungs sounds diminished in the bases bilaterally, right greater than left. Respirations symmetrical, nonlabored. Currently on 2 L nasal cannula with oxygen saturation 92%, achieving 1000 mL on her incentive spirometry. Strong cough. CARDIOVASCULAR: S1, S2 present. Regular rate and rhythm. Remote telemetry showing sinus rhythm, heart rate 88 bpm. Palpable peripheral pulses bilaterally. No edema present. No calf pain or tenderness noted. SCDs present. GASTROINTESTINAL: Abdomen soft, nontender, nondistended. Active bowel sounds present 4 quadrants. Tolerating diet. GENITOURINARY: Continues to void. INTEGUMENTARY: Skin is warm and dry with with no clubbing or cyanosis present. NEUROLOGIC: Cranial nerves II through XII intact. No focal deficits. MUSKULOSKELETAL: Able to move all extremities, strength equal bilaterally. PSYCHIATRIC: Alert and oriented to person place and time. INVASIVE LINES AND TUBES: Right chest tube drain remains in place to low continuous wall suction -20 cm H2O. Intermittent airleak present with coughing and using her incentive spirometry. Draining scant thin serosanguineous drainage. - Allied health notes Allied health notes reviewed: nursing - Labs CBC & Chem 7: 11/27/24 06:39 11/27/24 06:39 Labs: Abnormal Lab Results - Last 24 Hours (Table) 11/24/24 Range/Units 11:28 Blood Bank Comment Sent to [facility] A Reference Lab Result See [facility] REF Reports A - Imaging and Cardiology Chest x-ray: report reviewed, image reviewed Assessment and Plan Assessment: Right basilar masslike consolidation, malignancy versus infection Right loculated effusion, complicated, related to infection versus cancer, status post right pigtail catheter placement by interventional radiology, pleural fluid culture showed positive for Streptococcus intermedius, status post right thoracoscopy with decortication, single level intercostal nerve block Leukocytosis Hyponatremia Chest pain, cough with sputum secondary to above Recent 8 pound weight loss over 6 weeks History of gastric ulcer Raynaud's Distant remote history of smoking Plan: We will place her right pleural chest tube to waterseal this a.m. We will move her chest tube back about 4 cm and resecured. Continue to monitor for airleak resolution. Continue to record and monitor output. Encourage use of incentive spirometry 10 times every hour while awake. Encourage nutrition. Increase activity as tolerated, out of bed for all meals. Antibiotics per infectious disease. Continue to monitor daily chest x-rays. Medical management of other comorbidities per internal medicine, pulmonology, and infectious disease. More recommendations to follow based on patient's clinical course. Time with Patient: Greater than 30
--- NOTE | 2024-11-28 11:39 | XR ---
EXAMINATION TYPE: XR chest 1V portable DATE OF EXAM: 11/28/2024 10:58 AM COMPARISON: 11/28/2024 earlier exam CLINICAL INDICATION: Female, 69 years old with history of Repositioning of chest tube, TECHNIQUE: XR chest 1V portable view(s) obtained. FINDINGS: The heart size is normal. The pulmonary vasculature is normal. Right pneumothorax has diminished from comparison. Residual pneumothorax is at the right costophreni c angle. Right-sided chest tube remains present. IMPRESSION: 1. Diminished pneumothorax size with moderate residual remaining at the right costophrenic angle. [facility], , 11/28/2024 11:37 AM
--- NOTE | 2024-11-28 13:35 | P.PN ---
Subjective Progress Note Date: 11/28/24 Principal diagnosis: Right sided complicated pleural effusion/empyema The patient is seen today November 27, 2024 in follow-up on the selective care unit. She has since undergone decortication of the loculated fluid in her right chest on November 24, 2024. Right sided chest tube remains in place. Pleur-evac to wall suction. Still with a positive leak. Chest x-ray reveals slightly increased moderate size right hydropneumothorax with stable right chest tube. Similar right basilar patchy airspace opacities and consolidation concerning for atelectasis and/or infiltrate. Small similar pleural effusion. Follow-up pleural fluid cultures revealed no growth. White count 7.8. Hemoglobin 9.5. Platelets 477. Sodium 132. Potassium 3.5. Bicarb 32. BUN 10. Creatinine 0.57. Glucose 76. She continues to work with the incentive spirometer. She remains on bronchodilators. Antibiotics in the form of ceftriaxone. Heparin for DVT prophylaxis. Remains on IV diuretics. Currently in a -1.2 L balance. patient was seen today on 11/28/2024, patient continues to have right-sided chest tube in place, however needs to be pulled out about 3 cm since its not in the center of the loculated pleural effusion, and this is being done by thoracic surgery. Presently the patient is comfortable, not in distress, remains on antibiotics, and again she continues to have a bit of a trapped lung and loculated pneumothorax. Hoping by adjusting the chest tube, that may help expand the lung at the more. Patient continues to have an air leak. No labs today. Patient is afebrile and hemodynamically stable, on 2 L nasal cannula O2 sat is 95% Objective - Vital Signs Vital signs: Vital Signs Temp 98.2 F 11/28/24 07:38 Pulse 75 11/28/24 12:08 Resp 19 11/28/24 11:16 BP 90/56 11/28/24 11:16 Pulse Ox 95 11/28/24 11:16 FiO2 21 11/17/24 11:14 Intake & Output 11/27/24 11/28/24 11/28/24 18:59 06:59 18:59 Intake Total 208 20 10 Output Total 45 0 409 Balance 163 20 -399 Weight 57.6 kg Intake: IV 30 20 10 Invasive Line 3 10 Invasive Line 5 20 20 10 Oral 178 Output: Chest Tube Drainage 45 0 9 Chest Tube Right Upper 45 0 9 Posterior Chest Urine 400 Other: Voiding Method Toilet Toilet Toilet # Voids 1 # Bowel Movements 1 1 - Exam GENERAL EXAM: Alert, cachectic 69-year-old female, on 2 L nasal cannula HEAD: Normocephalic and atraumatic EYES: Normal reaction of pupils, equal size. NOSE: Clear with pink turbinates. THROAT: No erythema or exudates. NECK: No masses, no JVD. CHEST: No chest wall deformity. Right-sided chest tube is noted, connected to Pleur-evac. LUNGS: Diminished breath sound bilaterally, right more so than left. CVS: S1 and S2 normal with no audible murmur, regular rhythm. No extra heart sounds ABDOMEN: No hepatosplenomegaly, active bowel sounds, no guarding or rigidity. SKIN: No rashes CENTRAL NERVOUS SYSTEM: Alert and oriented x 3 no focal deficit EXTREMITIES: No clubbing edema or cyanosis - Labs CBC & Chem 7: 11/27/24 06:39 11/27/24 06:39 Labs: Abnormal Lab Results - Last 24 Hours (Table) 11/24/24 Range/Units 11:28 Blood Bank Comment Sent to [facility] A Reference Lab Result See [facility] REF Reports A Assessment and Plan Assessment: Impression: Right-sided empyema status post thoracentesis, followed by pigtail catheter placement, followed by lytic therapy, followed by decortication and the patient continues to have what seems to be a trapped lung with loculated pneumothorax on the right side. Acute hypoxemic respiratory failure, secondary to above, currently on 2 L/min nasal cannula, secondary to above Acute leukocytosis, secondary to above, improved Hyponatremia, appears euvolemic, improved Former tobacco smoker, quit approximately 9 years ago Recommendation: Continue chest tube to suction Chest tube positioning is being adjusted by thoracic surgery, will be pulled out about 3 cm hopefully the tip will be in the center of the loculated pneumothorax. Continue present supportive care measures Continue bronchodilators Continue antibiotics Patient is quite ill, not ready for discharge. Prognosis remains guarded Will continue to follow Time with Patient: Less than 30
[2024-11-28] MEDS: LIDOCAINE 1% INJ 10MG/ML (20 ML MDV) SQ ONE (14:49)
--- NOTE | 2024-11-28 16:42 | P.PN ---
Subjective Progress Note Date: 11/27/24 Principal diagnosis: Reason for follow-up is pneumonia/empyema Patient is a 69-year-old female with a past medical history significant for ulcer Raynaud's phenomena and osteoporosis presenting to the hospital for evaluation of right-sided chest pain and cough, patient be diagnosed with right-sided effusion history of empyema and pneumonia prompted this consultation.Patient is status post right thoracoscopy with decortication for right-sided empyema no OR culture procedure completed on 11/24/2024 On today's evaluation that is 11/27/2024, patient has been afebrile, patient is breathing comfortably and is currently on 2 L nasal cannula oxygen patient denies having any chest pain and cough, patient denies nausea vomiting or diarrhea and no abdominal pain Patient white count normalized to 7.88 creatinine 0.57 Objective - Vital Signs Vital signs: Vital Signs Temp 97.9 F 11/27/24 08:00 Pulse 81 11/27/24 14:57 Resp 18 11/27/24 14:57 BP 122/63 11/27/24 08:00 Pulse Ox 96 11/27/24 09:08 FiO2 21 11/17/24 11:14 Intake & Output 11/26/24 11/27/24 11/27/24 18:59 06:59 18:59 Intake Total 520 60 198 Output Total 1099 712 0 Balance -579 -652 198 Weight 59.3 kg Intake: IV 40 60 20 Invasive Line 3 20 30 10 Invasive Line 5 20 30 10 Oral 480 178 Output: Chest Tube Drainage 49 12 0 Chest Tube Right Upper 49 12 0 Posterior Chest Urine 1050 700 Other: Voiding Method Toilet Toilet Toilet # Voids 1 1 1 # Bowel Movements 1 1 1 - Exam GENERAL DESCRIPTION: An elderly female lying in bed in no distress RESPIRATORY SYSTEM: Unlabored breathing , decreased breath sounds at bases HEART: S1 S2 regular rate and rhythm , ABDOMEN: Soft , no tenderness EXTREMITIES: No edema feet - Labs CBC & Chem 7: 11/27/24 06:39 11/27/24 06:39 Labs: Abnormal Lab Results - Last 24 Hours (Table) 11/27/24 11/27/24 Range/Units 06:39 06:39 RBC 3.11 L (4.10-5.20) 10*6/uL Hgb 9.5 L (12.0-15.0) g/dL Hct 27.7 L (37.2-46.3) % Plt Count 477 H (140-440) 10*3/uL MPV 9.4 L (9.5-12.2) fL Immature Gran # 0.08 H (0.00-0.04) 10*3/uL Sodium 132 L (137-145) mmol/L Chloride 97 L (98-107) mmol/L Carbon Dioxide 32 H (22-30) mmol/L Calcium 7.3 L (8.4-10.2) mg/dL AST 38 H (14-36) U/L C-Reactive Protein 1.6 H (<1.0) mg/dL Total Protein 4.6 L (6.3-8.2) g/dL Albumin 1.9 L (3.5-5.0) g/dL Assessment and Plan (1) Sepsis Current Visit: Yes Status: Acute Code(s): A41.9 - SEPSIS, UNSPECIFIED ORGANISM SNOMED Code(s): 35511229 (2) Empyema lung Current Visit: Yes Status: Acute Code(s): J86.9 - PYOTHORAX WITHOUT FISTULA SNOMED Code(s): 18574267 (3) Pneumonia Current Visit: Yes Status: Acute Code(s): J18.9 - PNEUMONIA, UNSPECIFIED ORGANISM SNOMED Code(s): 891687725 Plan: 1patient presented to hospital with sepsis in this patient who did have tachypnea and tachycardia elevated white count as well as elevated lactic acid meeting criteria for SIRS/sepsis source is right-sided pneumonia with a question of postobstructive and a possible component of empyema likely community-acquired pathogen in this patient with no history of recent antibiotic exposure or flulike symptoms 2-patient is afebrile pleural fluid culture currently growing Streptococcus intermedius micro lab unable to do sensitivity as reported organism not growing 3patient is afebrile, patient did have repeat CT of the chest on 11/20/2024 vibha rning for persistent effusion and consolidation, the patient status post right- sided thoracoscopy and decortication completed on 11/24/2024 no OR culture 4patient white count has normalized we will continue with Rocephin and Flagyl and monitor clinical course closely Dictation was produced using dragon dictation software. please excuse any grammatical, word or spelling errors. Time with Patient: Less than 30
--- NOTE | 2024-11-28 16:43 | P.PN ---
Subjective Progress Note Date: 11/28/24 Principal diagnosis: Reason for follow-up is pneumonia/empyema Patient is a 69-year-old female with a past medical history significant for ulcer Raynaud's phenomena and osteoporosis presenting to the hospital for evaluation of right-sided chest pain and cough, patient be diagnosed with right-sided effusion history of empyema and pneumonia prompted this consultation.Patient is status post right thoracoscopy with decortication for right-sided empyema no OR culture procedure completed on 11/24/2024 On today's evaluation that is 11/28/2024, Patient is afebrile this morning patient denies having any chest pain shortness of breath or cough, the patient is currently on 2 L nasal oxygen, patient denies any abdominal pain no diarrhea no nausea no vomiting No new lab has been obtained today Objective - Vital Signs Vital signs: Vital Signs Temp 98.2 F 11/28/24 07:38 Pulse 76 11/28/24 16:14 Resp 16 11/28/24 15:53 BP 109/65 11/28/24 15:53 Pulse Ox 94 L 11/28/24 15:53 FiO2 21 11/17/24 11:14 Intake & Output 11/27/24 11/28/24 11/28/24 18:59 06:59 18:59 Intake Total 208 20 20 Output Total 45 0 421 Balance 163 20 -401 Weight 57.6 kg Intake: IV 30 20 20 Invasive Line 3 10 Invasive Line 5 20 20 20 Oral 178 Output: Chest Tube Drainage 45 0 21 Chest Tube Right Upper 45 0 21 Posterior Chest Urine 400 Other: Voiding Method Toilet Toilet Toilet # Voids 1 # Bowel Movements 1 1 - Exam GENERAL DESCRIPTION: An elderly female lying in bed in no distress RESPIRATORY SYSTEM: Unlabored breathing , decreased breath sounds at bases HEART: S1 S2 regular rate and rhythm , ABDOMEN: Soft , no tenderness EXTREMITIES: No edema feet - Labs CBC & Chem 7: 11/27/24 06:39 11/27/24 06:39 Labs: Abnormal Lab Results - Last 24 Hours (Table) 11/24/24 Range/Units 11:28 Blood Bank Comment Sent to [facility] A Reference Lab Result See [facility] REF Reports A Assessment and Plan (1) Sepsis Current Visit: Yes Status: Acute Code(s): A41.9 - SEPSIS, UNSPECIFIED ORGANISM SNOMED Code(s): 54143367 (2) Empyema lung Current Visit: Yes Status: Acute Code(s): J86.9 - PYOTHORAX WITHOUT FISTULA SNOMED Code(s): 57081243 (3) Pneumonia Current Visit: Yes Status: Acute Code(s): J18.9 - PNEUMONIA, UNSPECIFIED ORGANISM SNOMED Code(s): 115857352 Plan: 1patient presented to hospital with sepsis in this patient who did have tachypnea and tachycardia elevated white count as well as elevated lactic acid meeting criteria for SIRS/sepsis source is right-sided pneumonia with a question of postobstructive and a possible component of empyema likely community-acquired pathogen in this patient with no history of recent antibiotic exposure or flulike symptoms 2-patient pleural fluid culture currently growing Streptococcus intermedius micro lab unable to do sensitivity as reported organism not growing 3patient did have repeat CT of the chest on 11/20/2024 concerning for persistent effusion and consolidation, the patient status post right-sided thoracoscopy and decortication completed on 11/24/2024 no OR culture 4patient is afebrile and white count has normalized as of yesterday 5we will continue with Rocephin and Flagyl and monitor clinical course closely Dictation was produced using [employer] dictation software. please excuse any grammatical, word or spelling errors. Time with Patient: Less than 30
--- NOTE | 2024-11-29 07:20 | XR ---
EXAMINATION TYPE: XR chest 2V DATE OF EXAM: 11/29/2024 6:35 AM COMPARISON: 11/28/2024 CLINICAL INDICATION: Female, 69 years old with history of Postop right VATS, TECHNIQUE: XR chest 2V view(s) obtained. FINDINGS: The heart size is normal. The pulmonary vasculature is normal. Right lower lobe opacity is present. Correlate for atelectasis. Minimal left lower lobe infiltrate ma y be present. Small effusion may be present. There is a increase in size hydropneumothorax present on the right. Right-sided chest tube is present . IMPRESSION: 1. Increasing size right hydropneumothorax. 2. Right lower lobe infiltrate. 3. Minimal left lower lobe infiltrate [facility], , 11/29/2024 7:17 AM
--- NOTE | 2024-11-29 12:00 | P.PN ---
Subjective Progress Note Date: 11/29/24 Principal diagnosis: Reason for follow-up is pneumonia/empyema Patient is a 69-year-old female with a past medical history significant for ulcer Raynaud's phenomena and osteoporosis presenting to the hospital for evaluation of right-sided chest pain and cough, patient be diagnosed with right-sided effusion history of empyema and pneumonia prompted this consultation.Patient is status post right thoracoscopy with decortication for right-sided empyema no OR culture procedure completed on 11/24/2024 On today's evaluation that is 11/29/2024,the patient denies any fever or any chills, patient is breathing comfortably on 1 L nasal cannula oxygen, the patient denies chest pain shortness of breath and no significant cough, patient denies abdominal pain, no nausea vomiting or diarrhea. No new lab has been obtained today last white count on 11/27/2024 was normal Objective - Vital Signs Vital signs: Vital Signs Temp 97.5 F L 11/29/24 08:00 Pulse 82 11/29/24 09:10 Resp 18 11/29/24 08:00 BP 96/62 11/29/24 08:00 Pulse Ox 97 11/29/24 09:02 FiO2 21 11/17/24 11:14 Intake & Output 11/28/24 11/29/24 11/29/24 18:59 06:59 18:59 Intake Total 20 20 10 Output Total 421 110 0 Balance -401 -90 10 Weight 58.2 kg Intake: IV 20 20 10 Invasive Line 5 20 20 10 Output: Chest Tube Drainage 21 110 0 Chest Tube Right Upper 21 110 0 Posterior Chest Urine 400 Other: Voiding Method Toilet Toilet Toilet # Bowel Movements 1 - Exam GENERAL DESCRIPTION: An elderly female lying in bed in no distress RESPIRATORY SYSTEM: Unlabored breathing , decreased breath sounds at bases HEART: S1 S2 regular rate and rhythm , ABDOMEN: Soft , no tenderness EXTREMITIES: No edema feet - Labs CBC & Chem 7: 11/27/24 06:39 11/27/24 06:39 Assessment and Plan (1) Sepsis Current Visit: Yes Status: Acute Code(s): A41.9 - SEPSIS, UNSPECIFIED ORGANISM SNOMED Code(s): 54654243 (2) Empyema lung Current Visit: Yes Status: Acute Code(s): J86.9 - PYOTHORAX WITHOUT FISTULA SNOMED Code(s): 64861176 (3) Pneumonia Current Visit: Yes Status: Acute Code(s): J18.9 - PNEUMONIA, UNSPECIFIED ORGANISM SNOMED Code(s): 223956425 Plan: 1patient presented to hospital with sepsis in this patient who did have tachypnea and tachycardia elevated white count as well as elevated lactic acid meeting criteria for SIRS/sepsis source is right-sided pneumonia with a question of postobstructive and a possible component of empyema likely community-acquired pathogen in this patient with no history of recent antibiotic exposure or flulike symptoms 2-patient pleural fluid culture currently growing Streptococcus intermedius micro lab unable to do sensitivity as reported organism not growing 3patient did have repeat CT of the chest on 11/20/2024 concerning for persistent effusion and consolidation, the patient status post right-sided thoracoscopy and decortication completed on 11/24/2024 no OR culture 4patient is afebrile and white count has normalized as of 11/27/2024 patient is currently being treated with Rocephin and Flagyl and monitor clinical course closely Dictation was produced using [employer] dictation software. please excuse any grammatical, word or spelling errors. Time with Patient: Less than 30
--- NOTE | 2024-11-29 12:04 | P.PN ---
Subjective Progress Note Date: 11/29/24 Principal diagnosis: Right basilar masslike consolidation, right loculated effusion, leukocytosis, hyponatremia. History of gastric ulcer, raynaud's, distant remote history of smoking POD #5 Right thoracoscopy with decortication and single level intercostal nerve block. The patient was seen and examined this morning sitting up in the recliner on the cardiac step down unit eating breakfast in no acute distress. Right pleural chest tube present to -10 cm continuous wall suction, continuous air leak present. CXR reviewed. Patient did have chest tube pulled back 4 cm yesterday. States pain is controlled with current medication regimen. Remains in sinus rhythm. Objective - Vital Signs Vital signs: Vital Signs Temp 97.5 F L 11/29/24 08:00 Pulse 82 11/29/24 09:10 Resp 18 11/29/24 08:00 BP 96/62 11/29/24 08:00 Pulse Ox 97 11/29/24 09:02 FiO2 21 11/17/24 11:14 Intake & Output 11/28/24 11/29/24 11/29/24 18:59 06:59 18:59 Intake Total 20 20 10 Output Total 421 110 0 Balance -401 -90 10 Weight 58.2 kg Intake: IV 20 20 10 Invasive Line 5 20 20 10 Output: Chest Tube Drainage 21 110 0 Chest Tube Right Upper 21 110 0 Posterior Chest Urine 400 Other: Voiding Method Toilet Toilet Toilet # Bowel Movements 1 - Exam CONSTITUTIONAL: Appears comfortable, cooperative, no acute distress RESPIRATORY: Lungs sounds diminished in the right base. Respirations even, nonlabored. Currently on 1 L nasal cannula with oxygen saturation 97%. Able to achieve 750-1000 mL on incentive spirometry. Strong cough. CARDIOVASCULAR: S1, S2 present. Regular rate and rhythm. Palpable peripheral pulses bilaterally. Bilateral lower extremity edema present. No calf pain or tenderness noted. SCDs present. GASTROINTESTINAL: Abdomen soft, nontender, nondistended. Active bowel sounds present 4 quadrants. Tolerating diet. Positive bowel movement 6/10 GENITOURINARY: Continues to void INTEGUMENTARY: Skin is warm and dry with evidence of good perfusion NEUROLOGIC: Cranial nerves II through XII intact MUSKULOSKELETAL: Able to move all extremities, strength equal bilaterally PSYCHIATRIC: Alert and oriented to person place and time INVASIVE LINES AND TUBES: Right sided chest tube present to -10 cm continous wall suction, continous air leak present, 150 ml drainage in the last 24 hours - Allied health notes Allied health notes reviewed: nursing - Labs CBC & Chem 7: 11/27/24 06:39 11/27/24 06:39 - Imaging and Cardiology Chest x-ray: report reviewed, image reviewed Assessment and Plan Assessment: Right basilar masslike consolidation Right loculated effusion, complicated, related to infection, status post right thoracoscopy with decortication Leukocytosis Hyponatremia Chest pain, cough with sputum secondary to above Recent 8 pound weight loss over 6 weeks History of gastric ulcer Raynaud's Distant remote history of smoking Plan: Will instill talc slurry through chest tube and rotate patient Continue chest tube to suction, monitor for air leak resolution Encourage nutrition Antibiotics per infectious disease Incentive spirometry ordered and should be encouraged Increase activity as tolerated Medical management of other comorbidities per internal medicine, pulmonology, infectious disease More recommendations to follow
[2024-11-29] MEDS ORDERED: TALC POWDER 30 GM AERO.POWD INTRAPLEUR ONE (13:00)
[2024-11-29] MEDS ORDERED: TALC, STERILE 4 GM VIAL INTRAPLEUR ONE (13:00)
--- NOTE | 2024-11-29 15:08 | P.PCN ---
Date of Procedure: 11/29/24 Preoperative Diagnosis: Persistent airleak right lung Postoperative Diagnosis: Same Procedure(s) Performed: Instillation of talc into right pleural space Anesthesia: local, none Surgeon: Madhu Laureano Estimated Blood Loss (ml): 0 Pathology: none sent Condition: stable Disposition: no change Indications for Procedure: 69-year-old female status post thoracoscopy with persistent space and persistent air leak. Description of Procedure: Chest tube was temporarily clamped. It was instilled with 5 g of sterile talc, 30 cc of 2% lidocaine, 70 cc of saline. Tubing was draped over an IV pulse of the fluid would not drain out. Patient was positioned on her contralateral side back and stomach for appropriate time intervals. Following an hour of installation, tubing was dropped and the fluid was allowed to drain.
--- NOTE | 2024-11-29 15:53 | P.PN ---
Subjective Progress Note Date: 11/29/24 69-year-old female presenting the emergency department last night with a chief complaint of right upper quadrant abdominal pain with radiation to the right back. Ongoing for the last 2 days. Workup in the emergency department including abdominal/pelvis CT which does not show any acute intra-abdominal process. Remarkable for right middle lobe cystic lesion and moderate to large right-sided pleural effusion. Follow-up chest CTA did not show any evidence of pulmonary embolism. Right basilar masslike consolidation measuring 5.4 x 5.8 cm, concerning for possible malignancy. Additional surrounding airspace consolidation, possibly superimposed pneumonia. Large right-sided pleural effusion noted. Severe centrilobular emphysematous changes. Labs remarkable for a CBC with a WBC count of 62.7, hemoglobin 13.4, platelets 801. CMP with a sodium 130, potassium 5, chloride 95, serum bicarb 24, BUN 28, creatinine 0.88, glucose 105. Lactate 2.7 down to 1.1. AST 57, ALT 26, ALP 268. Troponins less than 0.012. NT proBNP 467. Lipase 26. Patient currently being evaluated in emergency department. She is resting comfortably on 2 L/min nasal cannula. SpO2 reading 98%. Again endorses above-mentioned right upper quadrant pain with radiation to the right thoracic level back. Previously, rated 9 out of 10 on a 10 point numerical scale. Started approximately 2 days ago. Denies any nausea, vomiting, change in bowel movements, diarrhea. Does endorse previous congested cough without much sputum production. Denies any significant purulent sputum or hemoptysis. Denies any fevers, chills. No previously diagnosed COPD. She is a former tobacco smoker, quit approximately 9 years ago. Prior to this, she smoked 1 pack, which lasted for almost a month. No family or personal history of lung cancer. No significant unintentional weight loss. No recent outpatient treatments for pneumonias. Her primary care provider is Dr. Muñoz. Given empiric doses of azithromycin, Rocephin, Flagyl, and vancomycin in the ED. Afebrile. Normal saline infusing at 130 mL/h. Nontoxic appearance. Hemodynamic stable. The patient is seen today November 08, 2024 in follow-up on the regular medical floor. She is currently sitting up in bed. Awake and alert in no acute distress. Maintaining good O2 saturations in the 90s on 2 L/min per nasal cannula. She did have a right sided pigtail catheter placed yesterday. She also had a thoracentesis performed yesterday. She continues with hazy yellow output. Her pleural fluid was exudate with a protein of 3.6 and an LDH greater than 2500. Procalcitonin was 2.74. She is currently on Unasyn. Chest x-ray continues to show ongoing moderate to large right pleural effusion with underlying atelectasis and/or consolidation. Minimally decreased compared to previous. Pleural fluid cultures are pending. White count 26.2. Hemoglobin 11.2. Platelets 544. Sodium 134. Potassium 3.7. Bicarb 23. BUN 14. Creatinine 0.52. Viral screen was negative for influenza A/B, RSV, COVID. The patient is seen today November 09, 2024 in follow-up on the regular medical floor. She is awake and alert in no acute distress. She did have some issues with desaturations earlier this morning with minimal activity. Chest x-ray shows worsening left-sided pleural effusion which is now moderate. She is currently maintaining good O2 saturations in the mid 90s on 5 L high flow nasal cannula. She is afebrile. Hemodynamically stable. She did have lytics instilled into the pigtail catheter yesterday. A total of 1420 mL have been returned since. Additional lytics will be instilled today per CT service. She continues to work well with the incentive spirometer. She remains on Unasyn. Pleural fluid cultures pending. Cytology pending. White count 38.6. Hemoglobin 11.5. Platelets 605. The patient is seen today November 27, 2024 in follow-up on the selective care unit. She has since undergone decortication of the loculated fluid in her right chest on November 24, 2024. Right sided chest tube remains in place. Pleur-evac to wall suction. Still with a positive leak. Chest x-ray reveals slightly increased moderate size right hydropneumothorax with stable right chest tube. Similar right basilar patchy airspace opacities and consolidation concerning for atelectasis and/or infiltrate. Small similar pleural effusion. Follow-up pleural fluid cultures revealed no growth. White count 7.8. Hemoglobin 9.5. Platelets 477. Sodium 132. Potassium 3.5. Bicarb 32. BUN 10. Creatinine 0.57. Glucose 76. She continues to work with the incentive spirometer. She remains on bronchodilators. Antibiotics in the form of ceftriaxone. Heparin for DVT prophylaxis. Remains on IV diuretics. Currently in a -1.2 L balance. Patient is seen today November 29, 2024 in follow-up on the selective care unit. She is currently resting in bed. Awake and alert in no acute distress. Maintaining O2 saturations in the 90s on 1 L/min per nasal cannula. Right sided chest tube remains in place to Pleur-evac and wall suction. Continues with a positive leak. Chest x-ray today continues to show an increasing right hydropneumothorax. Right lower lobe infiltrate. Minimal left lower lobe infiltrate. Plan is for talc pleurodesis today by CT services. Pleural fluid cultures revealed no growth. White count 7.8. Hemoglobin 9.5. Platelets 477. Sodium 132. Potassium 3.5. Bicarb 32. BUN 10. Creatinine 0.57. She remains on DuoNeb inhalations. Continued on ceftriaxone and Flagyl. Heparin for DVT prophylaxis. Objective - Vital Signs Vital signs: Vital Signs Temp 98 F 11/29/24 12:00 Pulse 82 11/29/24 12:37 Resp 18 11/29/24 12:00 BP 99/67 11/29/24 12:00 Pulse Ox 93 L 11/29/24 12:00 FiO2 21 11/17/24 11:14 Intake & Output 11/28/24 11/29/24 11/29/24 18:59 06:59 18:59 Intake Total 20 20 260 Output Total 421 110 60 Balance -401 -90 200 Weight 58.2 kg Intake: IV 20 20 20 Invasive Line 5 20 20 20 Oral 240 Output: Chest Tube Drainage 21 110 60 Chest Tube Right Upper 21 110 60 Posterior Chest Urine 400 Other: Voiding Method Toilet Toilet Toilet # Bowel Movements 1 - Exam GENERAL EXAM: Alert, cachectic 69-year-old female, resting in bed, on 1 L nasal cannula, comfortable in no apparent distress. HEAD: Normocephalic and atraumatic EYES: Normal reaction of pupils, equal size. NOSE: Clear with pink turbinates. THROAT: No erythema or exudates. NECK: No masses, no JVD. CHEST: No chest wall deformity. Right sided chest tube in place to Pleur-evac to wall suction. Positive leak LUNGS: Equal air entry with diminished right lower lobe lung sounds. No conversational dyspnea. CVS: S1 and S2 normal with no audible murmur, regular rhythm. No extra heart sounds ABDOMEN: No hepatosplenomegaly, active bowel sounds, no guarding or rigidity. SPINE: No scoliosis or deformity SKIN: No rashes CENTRAL NERVOUS SYSTEM: No focal deficits, tone is normal in all 4 extremities. EXTREMITIES: There is no peripheral edema, clubbing, or cyanosis. Peripheral pulses are intact. - Labs CBC & Chem 7: 11/27/24 06:39 11/27/24 06:39 Assessment and Plan Assessment: Right basilar masslike consolidation measuring 5.4 x 5.8 cm, consider malignancy; superimposed bacterial pneumonia is not excluded. Procalcitonin 2.74. Currently on ceftriaxone Large right-sided pleural effusion, status post thoracentesis with 500 cc of thick turbid fluid returned, status post pigtail catheter insertion. Status post decortication and placement of a 20 Yoruba chest tube on November 24, 2024. Remains in place to Pleur-evac and wall suction. Positive leak. Today's chest x-ray showing increased right sided hydropneumothorax. Plan is for talc pleurodesis to be inserted per CT services Acute hypoxemic respiratory failure, secondary to above, currently on 3 L/min nasal cannula, secondary to above Acute leukocytosis, secondary to above, improved Hyponatremia, appears euvolemic, improved Former tobacco smoker, quit approximately 9 years ago Plan: The patient was seen and evaluated Chest x-ray, labs and medications reviewed Right sided chest tube in place, positive leak still Plan is for talc pleurodesis today per CT services Remains on ceftriaxone Continue diuretics Continue bronchodilators Heparin for DVT prophylaxis Continue the incentive spirometer Titrate down the FiO2 as tolerated Increase her activity as tolerated We will continue to follow I have personally seen and examined the patient, performed the documentation and the assessment and plan as written. Number of minutes spent on the visit: 10 Dictation was produced using [employer] dictation software. Please excuse any grammatical, word or spelling errors.
[2024-11-29] MEDS: SODIUM CHLORIDE 0.9% IRRIG 1,000 ML BTL IRRIGATION ONE (18:17)
[2024-11-29] MEDS: LIDOCAINE 2% INJ 20 MG/ML (20 ML MDV) MISCELLANE ONE (18:17)
[2024-11-29] MEDS: TALC, STERILE 4 GM VIAL INTRAPLEUR ONE (18:17)
--- NOTE | 2024-11-30 02:51 | PN ---
PROGRESS NOTE DATE OF SERVICE: 11/28/2024 CHIEF COMPLAINT: Right-sided empyema. HISTORY OF PRESENT ILLNESS: This lady is feeling fairly well. White count has dropped. She has had no fever or chills. Chest tube still in place and is being advanced slowly. PHYSICAL EXAMINATION: LUNGS: Breath sounds are heard on both sides. CARDIAC: Normal. ABDOMEN: Soft, nontender. IMPRESSION: Status post VATS procedure and pleurodesis. PLAN: Her tube is being slowly withdrawn. White count is going down 7800 and hemoglobin is 9.5. MMODL / IJN: [id number] /
--- NOTE | 2024-11-30 03:11 | PN ---
PROGRESS NOTE DATE OF SERVICE: 11/29/2024 CHIEF COMPLAINT: Right-sided empyema. HISTORY OF PRESENT ILLNESS: This lady seems to be doing well, but x-ray suggested there is slight increase in the right-sided of thoracic fluid. PHYSICAL EXAMINATION: GENERAL: She is awake and alert. She is pale. CHEST: Fairly clear, particularly on the left. IMPRESSION: Right-sided empyema. PLAN: She will continue with chest tube drainage for the time being and hopefully, be removed soon. MMODL / IJN: [id number] /
--- NOTE | 2024-11-30 08:43 | XR ---
EXAMINATION TYPE: XR chest 1V portable DATE OF EXAM: 11/30/2024 6:49 AM COMPARISON: None. CLINICAL INDICATION: Female, 69 years old with history of postop right vats, TECHNIQUE: XR chest 1V portable view(s) obtained. FINDINGS: The heart size is normal. The pulmonary vasculature is normal. Persistent loculated right lower lateral pneumothorax, diminished from comparison. There is some impr ovement of the opacity at the aerated right lung base. Persistent fluid is within the pneumothorax ca vity. Minimal left pleural effusion is present IMPRESSION: 1. Diminished size loculated right lung pneumothorax. 2. Chest tube right chest. 3. Small pleural effusions [facility], , 11/30/2024 8:41 AM
[2024-11-30 09:36] LABS: Basophils # (A) 0.04 10*3/uL (0.00-0.10); Basophils % (A) 0.5 %; Eosinophils # (A) 0.05 10*3/uL (0.04-0.35); Eosinophils % (A) 0.6 %; HGB 9.1 g/dL (12.0-15.0); Lymphocytes # (A) 1.57 10*3/uL (0.90-5.00); Lymphocytes % (A) 19.2 %; MCH 31.2 pg (27.0-32.0); MCHC 33.7 g/dL (32.0-37.0); MCV 92.5 fL (80.0-97.0); Mean Platelet Volume 9.3 fL (9.5-12.2); Monocytes # (A) 0.91 10*3/uL (0.20-1.00); Monocytes % (A) 11.1 %; Neutrophils # (A) 5.54 10*3/uL (1.80-7.70); Neutrophils % (A) 67.6 %; Platelet Count 536 10*3/uL (140-440); RBC 2.92 10*6/uL (4.10-5.20); RDW 20.9 % (11.5-14.5); WBC 8.19 10*3/uL (4.50-10.00)
[2024-11-30 09:51] LABS: African American GFR (CKD) >90 (>60 ml/min/1.73 sqM); Anion Gap 2 mmol/L; Blood Urea Nitrogen 6 mg/dL (7-17); Calcium 7.3 mg/dL (8.4-10.2); Carbon Dioxide 34 mmol/L (22-30); Chloride 99 mmol/L (98-107); Glucose 122 mg/dL (74-99); Non-African American GFR(CKD) 87 (>60 ml/min/1.73 sqM); Potassium 3.2 mmol/L (3.5-5.1); Sodium 135 mmol/L (137-145)
[2024-11-30] MEDS ORDERED: Potassium Replacement Protocol 1 EACH MISC MISCELLANE PRN (13:30)
[2024-11-30] MEDS: POTASSIUM CHLORIDE ER 20 MEQ TAB.ER PO SCH (14:40)
--- NOTE | 2024-11-30 14:40 | P.PN ---
Subjective Progress Note Date: 11/30/24 Principal diagnosis: Right sided complicated pleural effusion/empyema The patient is seen today November 27, 2024 in follow-up on the selective care unit. She has since undergone decortication of the loculated fluid in her right chest on November 24, 2024. Right sided chest tube remains in place. Pleur-evac to wall suction. Still with a positive leak. Chest x-ray reveals slightly increased moderate size right hydropneumothorax with stable right chest tube. Similar right basilar patchy airspace opacities and consolidation concerning for atelectasis and/or infiltrate. Small similar pleural effusion. Follow-up pleural fluid cultures revealed no growth. White count 7.8. Hemoglobin 9.5. Platelets 477. Sodium 132. Potassium 3.5. Bicarb 32. BUN 10. Creatinine 0.57. Glucose 76. She continues to work with the incentive spirometer. She remains on bronchodilators. Antibiotics in the form of ceftriaxone. Heparin for DVT prophylaxis. Remains on IV diuretics. Currently in a -1.2 L balance. patient was seen today on 11/28/2024, patient continues to have right-sided chest tube in place, however needs to be pulled out about 3 cm since its not in the center of the loculated pleural effusion, and this is being done by thoracic surgery. Presently the patient is comfortable, not in distress, remains on antibiotics, and again she continues to have a bit of a trapped lung and loculated pneumothorax. Hoping by adjusting the chest tube, that may help expand the lung at the more. Patient continues to have an air leak. No labs today. Patient is afebrile and hemodynamically stable, on 2 L nasal cannula O2 sat is 95% Seen today on 11/30/2024, patient had bowel pleurodesis done yesterday, continues to have chest tube in place continues to have loculated right-sided pneumothorax, continues to have significant air leak. Patient however seems to be very comfortable and not in distress. Remains on antibiotics for her empyema, her white count responded well 8.19 hemoglobin 9.1 electrolytes are normal potassium is a bit low at 3.2 renal profile is normal Objective - Vital Signs Vital signs: Vital Signs Temp 97.8 F 11/30/24 08:55 Pulse 100 11/30/24 11:59 Resp 16 11/30/24 11:59 BP 103/67 11/30/24 11:59 Pulse Ox 92 L 11/30/24 11:59 FiO2 21 11/17/24 11:14 Intake & Output 11/29/24 11/30/24 11/30/24 18:59 06:59 18:59 Intake Total 500 20 480 Output Total 60 760 90 Balance 440 -740 390 Weight 53.2 kg Intake: IV 20 20 Invasive Line 5 20 20 Oral 480 480 Output: Chest Tube Drainage 60 260 90 Chest Tube Right Upper 60 260 90 Posterior Chest Urine 500 Other: Voiding Method Toilet Toilet # Voids 2 # Bowel Movements 1 - Exam GENERAL EXAM: Alert, cachectic 69-year-old female, on 2 L nasal cannula HEAD: Normocephalic and atraumatic EYES: Normal reaction of pupils, equal size. NOSE: Clear with pink turbinates. THROAT: No erythema or exudates. NECK: No masses, no JVD. CHEST: No chest wall deformity. Right-sided chest tube is noted, connected to Pleur-evac. LUNGS: Diminished breath sound bilaterally, right more so than left. CVS: S1 and S2 normal with no audible murmur, regular rhythm. No extra heart sounds ABDOMEN: No hepatosplenomegaly, active bowel sounds, no guarding or rigidity. SKIN: No rashes CENTRAL NERVOUS SYSTEM: Alert and oriented x 3 no focal deficit EXTREMITIES: No clubbing edema or cyanosis - Labs CBC & Chem 7: 11/30/24 09:17 11/30/24 09:17 Labs: Abnormal Lab Results - Last 24 Hours (Table) 11/30/24 11/30/24 Range/Units 09:17 09:17 RBC 2.92 L (4.10-5.20) 10*6/uL Hgb 9.1 L (12.0-15.0) g/dL Hct 27.0 L (37.2-46.3) % Plt Count 536 H (140-440) 10*3/uL MPV 9.3 L (9.5-12.2) fL Immature Gran # 0.08 H (0.00-0.04) 10*3/uL Sodium 135 L (137-145) mmol/L Potassium 3.2 L (3.5-5.1) mmol/L Carbon Dioxide 34 H (22-30) mmol/L BUN 6 L (7-17) mg/dL Glucose 122 H (74-99) mg/dL Calcium 7.3 L (8.4-10.2) mg/dL Assessment and Plan Assessment: Impression: Right-sided empyema status post thoracentesis, followed by pigtail catheter plac ement, followed by lytic therapy, followed by decortication and the patient continues to have what seems to be a trapped lung with loculated pneumothorax on the right side. Acute hypoxemic respiratory failure, secondary to above, currently on 2 L/min nasal cannula, secondary to above Acute leukocytosis, secondary to above, improved Hyponatremia, appears euvolemic, improved Former tobacco smoker, quit approximately 9 years ago Status post talc pleurodesis for persistent right-sided pneumothorax Recommendation: Continue chest tube to suction Continue present supportive care measures Continue bronchodilators Continue antibiotics Patient is quite ill, not ready for discharge. Until chest tube is removed and pneumothorax resolves Prognosis remains guarded Will continue to follow Time with Patient: Less than 30
--- NOTE | 2024-11-30 15:26 | P.PN ---
Subjective Progress Note Date: 11/30/24 Principal diagnosis: Right basilar masslike consolidation, right loculated effusion, leukocytosis, hyponatremia. Past medical history significant for gastric ulcer, raynaud's, distant remote history of smoking. POD #6 Right thoracoscopy with decortication and single level intercostal nerve block. Status post day #1 instillation of talc slurry through the chest tube performed by Dr. Laureano. The patient was seen and examined in follow-up today November 30, 2024 at her bedside on the third floor cardiac stepdown unit. She is currently sitting up to the bedside chair, is awake, alert, oriented x 3 and is in no acute apparent distress. She denies any complaints of pain or shortness of breath at this time. Her right pleural chest tube remains in place to low continuous wall suction -10 cm H2O. Intermittent airleak is present with coughing and using her incentive spirometry. Draining scant serosanguineous drainage. Oxygen saturations are 93% on 2 L nasal cannula and she is achieving 1000 mL on her incentive spirometry with encouragement. Remote telemetry showing normal sinus rhythm heart rate 90 bpm. Chest x-ray results reviewed. Objective - Vital Signs Vital signs: Vital Signs Temp 97.8 F 11/30/24 08:55 Pulse 97 11/30/24 14:37 Resp 16 11/30/24 14:37 BP 94/52 11/30/24 14:37 Pulse Ox 95 11/30/24 14:37 FiO2 21 11/17/24 11:14 Intake & Output 11/29/24 11/30/24 11/30/24 18:59 06:59 18:59 Intake Total 500 20 720 Output Total 60 760 90 Balance 440 -740 630 Weight 53.2 kg Intake: IV 20 20 Invasive Line 5 20 20 Oral 480 720 Output: Chest Tube Drainage 60 260 90 Chest Tube Right Upper 60 260 90 Posterior Chest Urine 500 Other: Voiding Method Toilet Toilet # Voids 2 # Bowel Movements 1 - Exam CONSTITUTIONAL: Appears comfortable, cooperative, no acute distress. RESPIRATORY: Lungs sounds diminished in the bases bilaterally, right greater t stallings left. Respirations symmetrical, nonlabored. Currently on 2 L nasal cannula with oxygen saturation 93%, achieving 1000 mL on her incentive spirometry. Strong cough. CARDIOVASCULAR: S1, S2 present. Regular rate and rhythm. Remote telemetry showing sinus rhythm. Palpable peripheral pulses bilaterally. No edema present. No calf pain or tenderness noted. SCDs present. GASTROINTESTINAL: Abdomen soft, nontender, nondistended. Active bowel sounds present 4 quadrants. Tolerating diet. GENITOURINARY: Continues to void. INTEGUMENTARY: Skin is warm and dry with with no clubbing or cyanosis present. NEUROLOGIC: Cranial nerves II through XII intact. No focal deficits. MUSKULOSKELETAL: Able to move all extremities, strength equal bilaterally. PSYCHIATRIC: Alert and oriented to person place and time. INVASIVE LINES AND TUBES: Right chest tube drain remains in place to low c ontinuous wall suction -10 cm H2O. Intermittent airleak present with coughing and using her incentive spirometry. Draining scant thin serosanguineous drainage. - Allied health notes Allied health notes reviewed: nursing - Labs CBC & Chem 7: 11/30/24 09:17 11/30/24 09:17 Labs: Abnormal Lab Results - Last 24 Hours (Table) 11/30/24 11/30/24 Range/Units 09:17 09:17 RBC 2.92 L (4.10-5.20) 10*6/uL Hgb 9.1 L (12.0-15.0) g/dL Hct 27.0 L (37.2-46.3) % Plt Count 536 H (140-440) 10*3/uL MPV 9.3 L (9.5-12.2) fL Immature Gran # 0.08 H (0.00-0.04) 10*3/uL Sodium 135 L (137-145) mmol/L Potassium 3.2 L (3.5-5.1) mmol/L Carbon Dioxide 34 H (22-30) mmol/L BUN 6 L (7-17) mg/dL Glucose 122 H (74-99) mg/dL Calcium 7.3 L (8.4-10.2) mg/dL - Imaging and Cardiology Chest x-ray: report reviewed, image reviewed Assessment and Plan Assessment: Right basilar masslike consolidation, malignancy versus infection Right loculated effusion, complicated, related to infection versus cancer, status post right pigtail catheter placement by interventional radiology, pleural fluid culture showed positive for Streptococcus intermedius, status post right thoracoscopy with decortication, single level intercostal nerve block Leukocytosis Hyponatremia Chest pain, cough with sputum secondary to above Recent 8 pound weight loss over 6 weeks History of gastric ulcer Raynaud's Distant remote history of smoking Plan: Keep right pleural chest tube in place to low continuous wall suction -10 cm H2O. Continue to monitor for airleak resolution. Continue to record and monitor output. Encourage use of incentive spirometry 10 times every hour while awake. Encourage nutrition. Increase activity as tolerated, out of bed for all meals. Antibiotics per infectious disease. Continue to monitor daily chest x-rays. Medical management of other comorbidities per internal medicine, pulmonology, and infectious disease. More recommendations to follow based on patient's clinical course. Time with Patient: Less than 30
--- NOTE | 2024-11-30 16:25 | P.PN ---
Subjective Progress Note Date: 11/30/24 Principal diagnosis: Reason for follow-up is pneumonia/empyema Patient is a 69-year-old female with a past medical history significant for ulcer Raynaud's phenomena and osteoporosis presenting to the hospital for evaluation of right-sided chest pain and cough, patient be diagnosed with right-sided effusion history of empyema and pneumonia prompted this consultation.Patient is status post right thoracoscopy with decortication for right-sided empyema no OR culture procedure completed on 11/24/2024 Patient is status post installation of tunneled cath of the right pleural space for persistent air leak on 11/29/2024 On today's evaluation that is 11/30/2024,the patient remains to be afebrile, patient is on 2 L nasal cannula supplemental oxygen and denies any shortness of breath no chest pain or any worsening cough.Patient denies having any nausea or vomiting, no abdominal pain and no diarrhea has been reported. Patient white count is 8.19, creatinine 0.70 Objective - Vital Signs Vital signs: Vital Signs Temp 97.8 F 11/30/24 08:55 Pulse 84 11/30/24 15:53 Resp 16 11/30/24 14:37 BP 94/52 11/30/24 14:37 Pulse Ox 95 11/30/24 14:37 FiO2 21 11/17/24 11:14 Intake & Output 11/29/24 11/30/24 11/30/24 18:59 06:59 18:59 Intake Total 500 20 770 Output Total 60 760 90 Balance 440 -740 680 Weight 53.2 kg Intake: IV 20 20 50 Invasive Line 5 20 20 cefTRIAXone 2 gm In 50 Sodium Chloride 0.9% 50 ml @ 100 mls/hr IVPB Q24HR [facility] Rx#:[id number] Oral 480 720 Output: Chest Tube Drainage 60 260 90 Chest Tube Right Upper 60 260 90 Posterior Chest Urine 500 Other: Voiding Method Toilet Toilet # Voids 2 1 # Bowel Movements 1 1 - Exam GENERAL DESCRIPTION: An elderly female lying in bed in no distress RESPIRATORY SYSTEM: Unlabored breathing , decreased breath sounds at bases HEART: S1 S2 regular rate and rhythm , ABDOMEN: Soft , no tenderness EXTREMITIES: No edema feet - Labs CBC & Chem 7: 11/30/24 09:17 11/30/24 09:17 Labs: Abnormal Lab Results - Last 24 Hours (Table) 11/30/24 11/30/24 Range/Units 09:17 09:17 RBC 2.92 L (4.10-5.20) 10*6/uL Hgb 9.1 L (12.0-15.0) g/dL Hct 27.0 L (37.2-46.3) % Plt Count 536 H (140-440) 10*3/uL MPV 9.3 L (9.5-12.2) fL Immature Gran # 0.08 H (0.00-0.04) 10*3/uL Sodium 135 L (137-145) mmol/L Potassium 3.2 L (3.5-5.1) mmol/L Carbon Dioxide 34 H (22-30) mmol/L BUN 6 L (7-17) mg/dL Glucose 122 H (74-99) mg/dL Calcium 7.3 L (8.4-10.2) mg/dL Assessment and Plan (1) Sepsis Current Visit: Yes Status: Acute Code(s): A41.9 - SEPSIS, UNSPECIFIED ORGANISM SNOMED Code(s): 34902683 (2) Empyema lung Current Visit: Yes Status: Acute Code(s): J86.9 - PYOTHORAX WITHOUT FISTULA SNOMED Code(s): 77064192 (3) Pneumonia Current Visit: Yes Status: Acute Code(s): J18.9 - PNEUMONIA, UNSPECIFIED ORGANISM SNOMED Code(s): 991491674 Plan: 1patient presented to hospital with sepsis in this patient who did have tachypnea and tachycardia elevated white count as well as elevated lactic acid meeting criteria for SIRS/sepsis source is right-sided pneumonia with a question of postobstructive and a possible component of empyema likely community-acquired pathogen in this patient with no history of recent antibiotic exposure or flulike symptoms 2-patient pleural fluid culture currently growing Streptococcus intermedius micro lab unable to do sensitivity as reported organism not growing 3patient did have repeat CT of the chest on 11/20/2024 concerning for persistent effusion and consolidation, the patient status post right-sided thoracoscopy and decortication completed on 11/24/2024 no OR culture 4patient is afebrile and white count has normalized I will keep the patient on IV Rocephin and oral Flagyl while in patient however no need for IV antibiotics on discharge discussed with the correctional case manager Dictation was produced using [employer] dictation software. please excuse any grammatical, word or spelling errors. Time with Patient: Less than 30
--- NOTE | 2024-12-01 08:27 | PN ---
PROGRESS NOTE CHIEF COMPLAINT: Right-sided empyema. HISTORY OF PRESENT ILLNESS: This lady is about the same. Apparently, the fluid in the right chest is starting to improve and appears to be less on x-ray. PHYSICAL EXAMINATION: CHEST: Breath sounds are heard bilaterally. CARDIAC: Normal. ABDOMEN: Soft, nontender. IMPRESSION: 1. Right-sided empyema. 2. Probable right lower lobe abscess. PLAN: Continue with the current program until chest tube was able to be removed. MMODL / IJN: [id number] /
--- NOTE | 2024-12-01 08:30 | XR ---
EXAMINATION TYPE: XR chest 1V portable DATE OF EXAM: 12/01/2024 7:15 AM COMPARISON: 11/30/2024 CLINICAL INDICATION: Female, 69 years old with history of Status post right VATS, TECHNIQUE: XR chest 1V portable view(s) obtained. FINDINGS: The heart size is normal. The pulmonary vasculature is normal. Right costophrenic angle pneumothorax appears similar. There is improving aeration of the right lung base. Chest tube remains in position. Bilateral pleural effusions are present IMPRESSION: 1. Improving loculated right pneumothorax. Chest tube remains present 2. Bilateral pleural effusions are present [facility], , 12/01/2024 8:28 AM
--- NOTE | 2024-12-01 08:35 | P.PN ---
Subjective Progress Note Date: 12/01/24 Principal diagnosis: Right basilar masslike consolidation, right loculated effusion, leukocytosis, hyponatremia. History of gastric ulcer, raynaud's, distant remote history of smoking POD #7 Right thoracoscopy with decortication and single level intercostal nerve block. Status post day #2 instillation of talc slurry through the chest tube performed by Dr. Laureano. The patient was seen and examined this morning sitting up in the recliner on the cardiac step down unit eating breakfast in no acute distress. Right pleural chest tube present to -10 cm continuous wall suction, continuous air leak present. CXR reviewed. States pain is controlled with current medication r egimen. Remains in sinus rhythm. Objective - Vital Signs Vital signs: Vital Signs Temp 97.4 F L 11/30/24 23:13 Pulse 79 12/01/24 08:00 Resp 19 12/01/24 08:00 BP 90/55 12/01/24 08:00 Pulse Ox 98 12/01/24 08:00 FiO2 21 11/17/24 11:14 Intake & Output 11/30/24 12/01/24 12/01/24 18:59 06:59 18:59 Intake Total 1010 20 10 Output Total 110 220 20 Balance 900 -200 -10 Weight 59 kg Intake: IV 50 20 10 Invasive Line 5 20 10 cefTRIAXone 2 gm In 50 Sodium Chloride 0.9% 50 ml @ 100 mls/hr IVPB Q24HR [facility] Rx#:[id number] Oral 960 Output: Chest Tube Drainage 110 220 20 Chest Tube Right Upper 110 220 20 Posterior Chest Other: Voiding Method Toilet # Voids 1 2 # Bowel Movements 1 - Exam CONSTITUTIONAL: Appears comfortable, cooperative, no acute distress RESPIRATORY: Lungs sounds diminished in the right base. Respirations even, nonlabored. Currently on 2 L nasal cannula with oxygen saturation 98%. Able to achieve 1000 mL on incentive spirometry. Strong cough. CARDIOVASCULAR: S1, S2 present. Regular rate and rhythm. Palpable peripheral pulses bilaterally. Bilateral lower extremity edema present. No calf pain or tenderness noted. SCDs present. GASTROINTESTINAL: Abdomen soft, nontender, nondistended. Active bowel sounds present 4 quadrants. Tolerating diet. Positive bowel movement 11/30 GENITOURINARY: Continues to void INTEGUMENTARY: Skin is warm and dry with evidence of good perfusion NEUROLOGIC: Cranial nerves II through XII intact MUSKULOSKELETAL: Able to move all extremities, strength equal bilaterally PSYCHIATRIC: Alert and oriented to person place and time INVASIVE LINES AND TUBES: Right sided chest tube present to -10 cm continous wall suction, continous air leak present, 250 ml drainage in the last 24 hours - Allied health notes Allied health notes reviewed: nursing - Labs CBC & Chem 7: 11/30/24 09:17 11/30/24 09:17 Labs: Abnormal Lab Results - Last 24 Hours (Table) 11/30/24 11/30/24 Range/Units 09:17 09:17 RBC 2.92 L (4.10-5.20) 10*6/uL Hgb 9.1 L (12.0-15.0) g/dL Hct 27.0 L (37.2-46.3) % Plt Count 536 H (140-440) 10*3/uL MPV 9.3 L (9.5-12.2) fL Immature Gran # 0.08 H (0.00-0.04) 10*3/uL Sodium 135 L (137-145) mmol/L Potassium 3.2 L (3.5-5.1) mmol/L Carbon Dioxide 34 H (22-30) mmol/L BUN 6 L (7-17) mg/dL Glucose 122 H (74-99) mg/dL Calcium 7.3 L (8.4-10.2) mg/dL Microbiology - Last 24 Hours (Table) 11/07/24 09:02 Acid Fast Bacilli Smear - Preliminary Pleural Fluid Acid Fast Bacilli Culture - Preliminary - Imaging and Cardiology Chest x-ray: report reviewed, image reviewed Assessment and Plan Assessment: Right basilar masslike consolidation Right loculated effusion, complicated, related to infection, status post right thoracoscopy with decortication Leukocytosis Hyponatremia Chest pain, cough with sputum secondary to above Recent 8 pound weight loss over 6 weeks History of gastric ulcer Raynaud's Distant remote history of smoking Plan: Continue chest tube to suction, monitor for air leak resolution Encourage nutrition Antibiotics per infectious disease Incentive spirometry ordered and should be encouraged Increase activity as tolerated Medical management of other comorbidities per internal medicine, pulmonology, infectious disease More recommendations to follow
[2024-12-01 11:54] LABS: Basophils # (A) 0.04 10*3/uL (0.00-0.10); Basophils % (A) 0.5 %; Eosinophils # (A) 0.07 10*3/uL (0.04-0.35); Eosinophils % (A) 0.8 %; HCT 25.8 % (37.2-46.3); HGB 8.7 g/dL (12.0-15.0); Lymphocytes # (A) 1.55 10*3/uL (0.90-5.00); Lymphocytes % (A) 17.7 %; MCH 31.2 pg (27.0-32.0); MCHC 33.7 g/dL (32.0-37.0); MCV 92.5 fL (80.0-97.0); Mean Platelet Volume 10.8 fL (9.5-12.2); Monocytes # (A) 1.16 10*3/uL (0.20-1.00); Monocytes % (A) 13.2 %; Neutrophils # (A) 5.83 10*3/uL (1.80-7.70); Neutrophils % (A) 66.4 %; Platelet Count 595 10*3/uL (140-440); RBC 2.79 10*6/uL (4.10-5.20); RDW 21.2 % (11.5-14.5); WBC 8.77 10*3/uL (4.50-10.00)
[2024-12-01] MEDS ORDERED: POTASSIUM CHLORIDE ER 20 MEQ TAB.ER PO SCH (12:00)
[2024-12-01 13:14] LABS: African American GFR (CKD) >90 (>60 ml/min/1.73 sqM); Anion Gap 3 mmol/L; Blood Urea Nitrogen 7 mg/dL (7-17); Calcium 7.7 mg/dL (8.4-10.2); Carbon Dioxide 30 mmol/L (22-30); Chloride 101 mmol/L (98-107); Glucose 100 mg/dL (74-99); Non-African American GFR(CKD) >90 (>60 ml/min/1.73 sqM); Potassium 3.9 mmol/L (3.5-5.1); Sodium 134 mmol/L (137-145)
--- NOTE | 2024-12-01 15:11 | P.PN ---
Subjective Progress Note Date: 12/01/24 Principal diagnosis: Right sided complicated pleural effusion/empyema The patient is seen today November 27, 2024 in follow-up on the selective care unit. She has since undergone decortication of the loculated fluid in her right chest on November 24, 2024. Right sided chest tube remains in place. Pleur-evac to wall suction. Still with a positive leak. Chest x-ray reveals slightly increased moderate size right hydropneumothorax with stable right chest tube. Similar right basilar patchy airspace opacities and consolidation concerning for atelectasis and/or infiltrate. Small similar pleural effusion. Follow-up pleural fluid cultures revealed no growth. White count 7.8. Hemoglobin 9.5. Platelets 477. Sodium 132. Potassium 3.5. Bicarb 32. BUN 10. Creatinine 0.57. Glucose 76. She continues to work with the incentive spirometer. She remains on bronchodilators. Antibiotics in the form of ceftriaxone. Heparin for DVT prophylaxis. Remains on IV diuretics. Currently in a -1.2 L balance. patient was seen today on 11/28/2024, patient continues to have right-sided chest tube in place, however needs to be pulled out about 3 cm since its not in the center of the loculated pleural effusion, and this is being done by thoracic surgery. Presently the patient is comfortable, not in distress, remains on antibiotics, and again she continues to have a bit of a trapped lung and loculated pneumothorax. Hoping by adjusting the chest tube, that may help expand the lung at the more. Patient continues to have an air leak. No labs today. Patient is afebrile and hemodynamically stable, on 2 L nasal cannula O2 sat is 95% Seen today on 11/30/2024, patient had bowel pleurodesis done yesterday, continues to have chest tube in place continues to have loculated right-sided pneumothorax, continues to have significant air leak. Patient however seems to be very comfortable and not in distress. Remains on antibiotics for her empyema, her white count responded well 8.19 hemoglobin 9.1 electrolytes are normal potassium is a bit low at 3.2 renal profile is normal Seen today on 12/01/2024, patient is doing well clinically and does not seem to be in distress, however continues to have a significant complicated issue with her persistent right-sided pneumothorax and trapped lung, patient is status post decortication she is also status post talc pleurodesis, continues to have an air leak, continues to be on oxygen, not making a dramatic improvement overall. Patient is now POD #7 Right thoracoscopy with decortication and single level intercostal nerve block. Status post day #2 instillation of talc slurry through the chest tube. Chest x-ray was reviewed today, again she continues to have a pneumothorax and continues to have airleak. CBC is basically normal except for hemoglobin of 8.7 electrolytes are normal BUN is 7 creatinine 0.47 Objective - Vital Signs Vital signs: Vital Signs Temp 97.4 F L 11/30/24 23:13 Pulse 61 12/01/24 13:43 Resp 19 12/01/24 13:43 BP 95/56 12/01/24 11:33 Pulse Ox 94 L 12/01/24 11:33 FiO2 21 11/17/24 11:14 Intake & Output 11/30/24 12/01/24 12/01/24 18:59 06:59 18:59 Intake Total 1010 20 20 Output Total 110 220 50 Balance 900 -200 -30 Weight 59 kg Intake: IV 50 20 20 Invasive Line 5 20 20 cefTRIAXone 2 gm In 50 Sodium Chloride 0.9% 50 ml @ 100 mls/hr IVPB Q24HR [facility] Rx#:[id number] Oral 960 Output: Chest Tube Drainage 110 220 50 Chest Tube Right Upper 110 220 50 Posterior Chest Other: Voiding Method Toilet Toilet # Voids 1 2 1 # Bowel Movements 1 - Exam GENERAL EXAM: Alert, cachectic 69-year-old female, on 2 L nasal cannula, O2 sat is 94% HEAD: Normocephalic and atraumatic EYES: Normal reaction of pupils, equal size. NOSE: Clear with pink turbinates. THROAT: No erythema or exudates. NECK: No masses, no JVD. CHEST: No chest wall deformity. Right-sided chest tube is noted, connected to Pleur-evac. Ongoing air leak noted LUNGS: Diminished breath sound bilaterally, right more so than left. CVS: S1 and S2 normal with no audible murmur, regular rhythm. No extra heart piyush nds ABDOMEN: No hepatosplenomegaly, active bowel sounds, no guarding or rigidity. SKIN: No rashes CENTRAL NERVOUS SYSTEM: Alert and oriented x 3 no focal deficit EXTREMITIES: No clubbing edema or cyanosis - Labs CBC & Chem 7: 12/01/24 11:13 12/01/24 12:36 Labs: Abnormal Lab Results - Last 24 Hours (Table) 12/01/24 12/01/24 Range/Units 11:13 12:36 RBC 2.79 L (4.10-5.20) 10*6/uL Hgb 8.7 L (12.0-15.0) g/dL Hct 25.8 L (37.2-46.3) % Plt Count 595 H (140-440) 10*3/uL Immature Gran # 0.12 H (0.00-0.04) 10*3/uL Monocytes # 1.16 H (0.20-1.00) 10*3/uL Sodium 134 L (137-145) mmol/L Creatinine 0.47 L (0.52-1.04) mg/dL Glucose 100 H (74-99) mg/dL Calcium 7.7 L (8.4-10.2) mg/dL Microbiology - Last 24 Hours (Table) 11/07/24 09:02 Acid Fast Bacilli Smear - Preliminary Pleural Fluid Acid Fast Bacilli Culture - Preliminary Assessment and Plan Assessment: Impression: Right-sided empyema status post thoracentesis, followed by pigtail catheter placement, followed by lytic therapy,POD #7 Right thoracoscopy with decortication and single level intercostal nerve block.Status post day #2 i nstillation of talc slurry through the chest tube performed by Dr. Laureano. Acute hypoxemic respiratory failure, secondary to above, currently on 2 L/min nasal cannula, secondary to above Acute leukocytosis, secondary to above, improved Hyponatremia, appears euvolemic, improved Former tobacco smoker, quit approximately 9 years ago Status post talc pleurodesis for persistent right-sided pneumothorax Recommendation: Continue chest tube to suction, monitor for airleak resolution Continue present supportive care measures Continue bronchodilators Continue antibiotics Patient is quite ill, not ready for discharge. Prognosis remains guarded Will continue to follow Time with Patient: Less than 30
--- NOTE | 2024-12-01 18:31 | P.PN ---
Subjective Progress Note Date: 12/01/24 Patient evaluated today on the cardiac unit. Currently sitting up in the chair. Pigtail catheter in place. Atrium changed today. Chest xray today reveals diminished size right basilar fluid collection. Some adjacent infiltrate in present. Drainage catheter is stable in position. Small left pleural effusion. Reporting worsening lower extremity edema. Labs today reveal WBC 17.48, hgb 10.5, sodium 133, potassium 4.1, BUN 3, creatinine 0.56. 11/18/2024 Patient evaluated today on follow up. Currently resting in bed. DAVEY wraps to bilateral lower extremities continue. Patient has had 440 mls of drainage from the right sided chest tube in the last 24 hours. S/P dornase and alteplase today. Chest xray reveals small to moderate right pleural effusion. Sodium up to 135. 11/19/2024 Patient evaluated in follow-up on the cardiac unit. She continues with a pigtail catheter to the right chest wall secondary to an infectious empyema. Cultures from the empyema showing Streptococcus intermedius. Repeat pleural cultures are negative so far. She remains on IV ceftriaxone and IV metronidazole with ID following this patient closely. CT surgery is following this patient. Her chest x-ray today reveals increasing moderate size right pleural effusion and stable position of the PEG pleural pigtail catheter. There is a similar right basilar consolidation concerning for infiltrate versus atelectasis. There is emphysematous changes. WBC 18.76, hgb 10.6, sodium 134, potassium 3.8, BUN 7, creatinine 0.49. She is currently on oxygen at 2 L of nasal cannula saturations of 92%. Blood pressure 104/70. Drainage from the pleural catheter is decreasing. 12/01/2024 Assumed care of this patient today from Dr Muñoz. Pigtail catheter remains in place. Patient is postoperative day #7 VATS procedure, and postoperative day #2 instillation of talc into the right pleural space. Chest xray today reveals improving loculated right pneumothorax. Chest tube in place. Bilateral pleural effusions are present. Patient with worsening peripheral edema/foot edema. Was taken off the IV lasix. Review of Systems Constitutional: Denied any fatigue denied any fever. Cardio vascular: denied any chest pain, palpitations Gastrointestinal: denied any nausea, vomiting, diarrhea Pulmonary: Denied any shortness of breath cough Neurologic denied any new focal deficits All inpatient medications were reviewed and appropriate changes in these medications as dictated in the interval history and assessment and plan. PHYSICAL EXAMINATION: GENERAL: The patient is alert and oriented x3, not in any acute distress. Well developed, well nourished. HEENT: Pupils are round and equally reacting to light. EOMI. No scleral icterus. No conjunctival pallor. Normocephalic, atraumatic. No pharyngeal erythema. No thyromegaly. CARDIOVASCULAR: S1 and S2 present. No murmurs, rubs, or gallops. PULMONARY: Chest is clear to auscultation, no wheezing or crackles. Pigtail catheter in place right chest wall. ABDOMEN: Soft, nontender, nondistended, normoactive bowel sounds. No palpable organomegaly. MUSCULOSKELETAL: No joint swelling or deformity. EXTREMITIES: No cyanosis, clubbing, or pedal edema. Mild lower extremity edema. Moderate pedal edema NEUROLOGICAL: Gross neurological examination did not reveal any focal deficits. SKIN: No rashes. Assessment Right sided empyema with thorascopy and decortication on 11/24/2024, status post talc instillation on 11/29/2024 Loculated pleural effusion s/p thoracentesis with cultures growing streptococcus intermedius Acute hypoxemic respiratory failure from above Peripheral edema Leukocytosis Hyponatremia Peripheral edema Hx Reynauds phenomenon Former smoker GI prophylaxis Full Code Plan Continue IV ceftriaxone, oral metronidazole CT surgery following Pulmonology following ID following Recommend to DAVEY wrap lower extremities monitor electrolytes and renal function Continue to encourage incentive spirometer 10 x an hour Chest xray in the AM PT/OT consultation The impression and plan of care has been dictated by Nitza Davis, Nurse Practitioner as directed. Dr. Riri MD I have performed a history and physical examination and medical decision making of this patient, discussed the same with the dictator, and agree with the dictators assessment and plan as written, documented as a scribe. Based on total visit time, I have performed more than 50% of this visit. Objective - Vital Signs Vital signs: Vital Signs Temp 97.4 F L 11/30/24 23:13 Pulse 84 12/01/24 16:06 Resp 19 12/01/24 15:27 BP 112/63 12/01/24 15:27 Pulse Ox 95 12/01/24 15:27 FiO2 21 11/17/24 11:14 Intake & Output 0612/01/24 12/01/24 18:59 06:59 18:59 Intake Total 1010 20 20 Output Total 110 220 90 Balance 900 -200 -70 Weight 59 kg Intake: IV 50 20 20 Invasive Line 5 20 20 cefTRIAXone 2 gm In 50 Sodium Chloride 0.9% 50 ml @ 100 mls/hr IVPB Q24HR [facility]S [facility]CLUDE 234 BEDS AT THE [facility] Rx#:[id number] Oral 960 Output: Chest Tube Drainage 110 220 90 Chest Tube Right Upper 110 220 90 Posterior Chest Other: Voiding Method Toilet Toilet # Voids 1 2 1 # Bowel Movements 1 1 - Labs CBC & Chem 7: 12/01/24 11:13 12/01/24 12:36 Labs: Abnormal Lab Results - Last 24 Hours (Table) 12/01/24 12/01/24 Range/Units 11:13 12:36 RBC 2.79 L (4.10-5.20) 10*6/uL Hgb 8.7 L (12.0-15.0) g/dL Hct 25.8 L (37.2-46.3) % Plt Count 595 H (140-440) 10*3/uL Immature Gran # 0.12 H (0.00-0.04) 10*3/uL Monocytes # 1.16 H (0.20-1.00) 10*3/uL Sodium 134 L (137-145) mmol/L Creatinine 0.47 L (0.52-1.04) mg/dL Glucose 100 H (74-99) mg/dL Calcium 7.7 L (8.4-10.2) mg/dL Microbiology - Last 24 Hours (Table) 11/07/24 09:02 Fungal Culture - Preliminary Lung - Right 11/07/24 09:02 Acid Fast Bacilli Smear - Preliminary Pleural Fluid Acid Fast Bacilli Culture - Preliminary Assessment and Plan Time with Patient: Less than 30
--- NOTE | 2024-12-02 07:26 | XR ---
EXAMINATION TYPE: XR chest 1V portable DATE OF EXAM: 12/02/2024 5:53 AM COMPARISON: Chest radiographs from 12/01/2024. CLINICAL INDICATION: Female, 69 years old with history of pneumothorax; [facility] TECHNIQUE: XR chest 1V portable Frontal view of the chest. FINDINGS: Lungs/Pleura: Interstitial prominence of the exam. No evidence of focal consolidation or pneumothorax . Blunting of the costophrenic angles is present. Pulmonary vascularity: Unremarkable. Heart/mediastinum: Cardiomediastinal silhouette is unremarkable. Musculoskeletal: No acute osseous pathology. Other findings: None Lines/Tubes: Right thoracotomy tube is present with evidence of pneumothorax. IMPRESSION: 1. Right thoracotomy tube is present with evidence of pneumothorax. 2. Small bilateral pleural effusions. [facility], , 12/02/2024 7:23 AM
--- NOTE | 2024-12-02 07:49 | P.PN ---
Subjective Progress Note Date: 12/02/24 Principal diagnosis: Right basilar masslike consolidation, right loculated effusion, leukocytosis, hyponatremia. History of gastric ulcer, raynaud's, distant remote history of smoking POD #8 Right thoracoscopy with decortication and single level intercostal nerve block. Status post day #3 instillation of talc slurry through the chest tube performed by Dr. Laureano. The patient was seen and examined this morning sitting up in the recliner on the cardiac step down unit eating breakfast in no acute distress. Right pleural chest tube present to -10 cm continuous wall suction, air leak present mostly with expiration. 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 States pain is controlled with current medication regimen. Remains in sinus rhythm. Remains on 2 L nasal cannula with oxygen saturation in the mid 90s, continues to be able to achieve 1000 mL on incentive spirometry. No new concerns, patient remains the same. Objective - Vital Signs Vital signs: Vital Signs Temp 97.8 F 12/02/24 03:54 Pulse 86 12/02/24 03:54 Resp 19 12/02/24 03:54 BP 91/52 12/02/24 03:54 Pulse Ox 94 L 12/02/24 03:54 FiO2 21 11/17/24 11:14 Intake & Output 12/01/24 12/02/24 12/02/24 18:59 06:59 18:59 Intake Total 20 20 Output Total 90 110 Balance -70 -90 Weight 59.3 kg Intake: IV 20 20 Invasive Line 5 20 20 Output: Chest Tube Drainage 90 110 Chest Tube Right Upper 90 110 Posterior Chest Other: Voiding Method Toilet Toilet # Voids 1 1 # Bowel Movements 1 - Exam CONSTITUTIONAL: Appears comfortable, cooperative, no acute distress RESPIRATORY: Lungs sounds diminished in the right base. Respirations even, nonlabored. Currently on 2 L nasal cannula with oxygen saturation 94%. Able to achieve 1000 mL on incentive spirometry. Strong cough. CARDIOVASCULAR: S1, S2 present. Regular rate and rhythm. Palpable peripheral pulses bilaterally. Bilateral lower extremity edema present. No calf pain or tenderness noted. SCDs present. GASTROINTESTINAL: Abdomen soft, nontender, nondistended. Active bowel sounds present 4 quadrants. Tolerating diet. Positive bowel movement 12/01 GENITOURINARY: Continues to void INTEGUMENTARY: Skin is warm and dry with evidence of good perfusion NEUROLOGIC: Cranial nerves II through XII intact MUSKULOSKELETAL: Able to move all extremities, strength equal bilaterally PSYCHIATRIC: Alert and oriented to person place and time INVASIVE LINES AND TUBES: Right sided chest tube present to -10 cm continous wall suction, air leak present mostly with expiration, 200 ml drainage in the last 24 hours - Allied health notes Allied health notes reviewed: nursing - Labs CBC & Chem 7: 12/01/24 11:13 12/01/24 12:36 Labs: Abnormal Lab Results - Last 24 Hours (Table) 12/01/24 12/01/24 Range/Units 11:13 12:36 RBC 2.79 L (4.10-5.20) 10*6/uL Hgb 8.7 L (12.0-15.0) g/dL Hct 25.8 L (37.2-46.3) % Plt Count 595 H (140-440) 10*3/uL Immature Gran # 0.12 H (0.00-0.04) 10*3/uL Monocytes # 1.16 H (0.20-1.00) 10*3/uL Sodium 134 L (137-145) mmol/L Creatinine 0.47 L (0.52-1.04) mg/dL Glucose 100 H (74-99) mg/dL Calcium 7.7 L (8.4-10.2) mg/dL Microbiology - Last 24 Hours (Table) 11/07/24 09:02 Fungal Culture - Preliminary Lung - Right - Imaging and Cardiology Chest x-ray: report reviewed, image reviewed Assessment and Plan Assessment: Right basilar masslike consolidation Right loculated effusion, complicated, related to infection, status post right thoracoscopy with decortication Leukocytosis Hyponatremia Chest pain, cough with sputum secondary to above Recent 8 pound weight loss over 6 weeks History of gastric ulcer Raynaud's Distant remote history of smoking Plan: Continue chest tube to suction, monitor for air leak resolution Encourage nutrition Antibiotics per infectious disease Encourage incentive spirometry use Increase activity as tolerated Medical management of other comorbidities per internal medicine, pulmonology, infectious disease More recommendations to follow
[2024-12-02 08:33] LABS: Basophils # (A) 0.06 10*3/uL (0.00-0.10); Basophils % (A) 0.8 %; Eosinophils # (A) 0.11 10*3/uL (0.04-0.35); Eosinophils % (A) 1.5 %; HCT 26.8 % (37.2-46.3); HGB 8.9 g/dL (12.0-15.0); Lymphocytes # (A) 1.33 10*3/uL (0.90-5.00); MCH 30.8 pg (27.0-32.0); MCHC 33.2 g/dL (32.0-37.0); MCV 92.7 fL (80.0-97.0); Mean Platelet Volume 9.8 fL (9.5-12.2); Monocytes # (A) 0.86 10*3/uL (0.20-1.00); Monocytes % (A) 11.7 %; Neutrophils % (A) 66.5 %; Platelet Count 559 10*3/uL (140-440); RBC 2.89 10*6/uL (4.10-5.20); RDW 21.3 % (11.5-14.5); WBC 7.37 10*3/uL (4.50-10.00)
[2024-12-02 08:46] LABS: African American GFR (CKD) >90 (>60 ml/min/1.73 sqM); Anion Gap 2 mmol/L; Blood Urea Nitrogen 10 mg/dL (7-17); Calcium 7.7 mg/dL (8.4-10.2); Carbon Dioxide 30 mmol/L (22-30); Chloride 103 mmol/L (98-107); Glucose 105 mg/dL (74-99); Non-African American GFR(CKD) >90 (>60 ml/min/1.73 sqM); Potassium 3.8 mmol/L (3.5-5.1); Sodium 135 mmol/L (137-145)
--- NOTE | 2024-12-02 13:34 | P.PN ---
Subjective Progress Note Date: 12/02/24 Principal diagnosis: Right sided complicated pleural effusion/empyema The patient is seen today November 27, 2024 in follow-up on the selective care unit. She has since undergone decortication of the loculated fluid in her right chest on November 24, 2024. Right sided chest tube remains in place. Pleur-evac to wall suction. Still with a positive leak. Chest x-ray reveals slightly increased moderate size right hydropneumothorax with stable right chest tube. Similar right basilar patchy airspace opacities and consolidation concerning for atelectasis and/or infiltrate. Small similar pleural effusion. Follow-up pleural fluid cultures revealed no growth. White count 7.8. Hemoglobin 9.5. Platelets 477. Sodium 132. Potassium 3.5. Bicarb 32. BUN 10. Creatinine 0.57. Glucose 76. She continues to work with the incentive spirometer. She remains on bronchodilators. Antibiotics in the form of ceftriaxone. Heparin for DVT prophylaxis. Remains on IV diuretics. Currently in a -1.2 L balance. patient was seen today on 11/28/2024, patient continues to have right-sided chest tube in place, however needs to be pulled out about 3 cm since its not in the center of the loculated pleural effusion, and this is being done by thoracic surgery. Presently the patient is comfortable, not in distress, remains on antibiotics, and again she continues to have a bit of a trapped lung and loculated pneumothorax. Hoping by adjusting the chest tube, that may help expand the lung at the more. Patient continues to have an air leak. No labs today. Patient is afebrile and hemodynamically stable, on 2 L nasal cannula O2 sat is 95% Seen today on 11/30/2024, patient had bowel pleurodesis done yesterday, continues to have chest tube in place continues to have loculated right-sided pneumothorax, continues to have significant air leak. Patient however seems to be very comfortable and not in distress. Remains on antibiotics for her empyema, her white count responded well 8.19 hemoglobin 9.1 electrolytes are normal potassium is a bit low at 3.2 renal profile is normal Seen today on 12/01/2024, patient is doing well clinically and does not seem to be in distress, however continues to have a significant complicated issue with her persistent right-sided pneumothorax and trapped lung, patient is status post decortication she is also status post talc pleurodesis, continues to have an air leak, continues to be on oxygen, not making a dramatic improvement overall. Patient is now POD #7 Right thoracoscopy with decortication and single level intercostal nerve block. Status post day #2 instillation of talc slurry through the chest tube. Chest x-ray was reviewed today, again she continues to have a pneumothorax and continues to have airleak. CBC is basically normal except for hemoglobin of 8.7 electrolytes are normal BUN is 7 creatinine 0.47 patient was seen today on 12/02/2024, clinically the patient is doing well, asymptomatic, patient is now postoperative day #8 right thoracoscopy with decortication and postoperative day #3 instillation of talc slurry through the chest tube. No major change in the last 24 hours, the loculated pneumothorax may seem to be a bit smaller today, continues to have continuous airleak in spite of talc pleurodesis. Patient is comfortable not in distress. Remains on antibiotics for empyema Objective - Vital Signs Vital signs: Vital Signs Temp 98.0 F 12/02/24 12:00 Pulse 78 12/02/24 12:13 Resp 16 12/02/24 12:00 BP 97/53 12/02/24 12:00 Pulse Ox 96 12/02/24 12:00 FiO2 21 11/17/24 11:14 Intake & Output 12/01/24 12/02/24 12/02/24 18:59 06:59 18:59 Intake Total 20 20 250 Output Total 90 110 Balance -70 -90 250 Weight 59.3 kg Intake: IV 20 20 10 Invasive Line 5 20 20 10 Oral 240 Output: Chest Tube Drainage 90 110 Chest Tube Right Upper 90 110 Posterior Chest Other: Voiding Method Toilet Toilet Toilet # Voids 1 1 # Bowel Movements 1 - Exam GENERAL EXAM: Alert, cachectic 69-year-old female, on 2 L nasal cannula HEAD: Normocephalic and atraumatic EYES: Normal reaction of pupils, equal size. NOSE: Clear with pink turbinates. THROAT: No erythema or exudates. NECK: No masses, no JVD. CHEST: No chest wall deformity. Right-sided chest tube is noted, connected to Pleur-evac. Ongoing air leak noted LUNGS: Diminished breath sound bilaterally, right more so than left. CVS: S1 and S2 normal with no audible murmur, regular rhythm. No extra heart sounds ABDOMEN: No hepatosplenomegaly, active bowel sounds, no guarding or rigidity. SKIN: No rashes CENTRAL NERVOUS SYSTEM: Alert and oriented x 3 no focal deficit EXTREMITIES: No clubbing edema or cyanosis - Labs CBC & Chem 7: 12/02/24 08:04 12/02/24 08:04 Labs: Abnormal Lab Results - Last 24 Hours (Table) 12/02/24 12/02/24 Range/Units 08:04 08:04 RBC 2.89 L (4.10-5.20) 10*6/uL Hgb 8.9 L (12.0-15.0) g/dL Hct 26.8 L (37.2-46.3) % Plt Count 559 H (140-440) 10*3/uL Immature Gran # 0.11 H (0.00-0.04) 10*3/uL Sodium 135 L (137-145) mmol/L Glucose 105 H (74-99) mg/dL Calcium 7.7 L (8.4-10.2) mg/dL Microbiology - Last 24 Hours (Table) 11/07/24 09:02 Fungal Culture - Preliminary Lung - Right Assessment and Plan Assessment: Impression: Right-sided empyema status post thoracentesis, followed by pigtail catheter placement, followed by lytic therapy,POD #8 right thoracoscopy with decortication and single level intercostal nerve block.Status post day #3 instillation of talc slurry through the chest tube performed by Dr. Laureano. Acute hypoxemic respiratory failure, secondary to above, currently on 2 L/min nasal cannula, secondary to above Acute leukocytosis, secondary to above, improved Hyponatremia, appears euvolemic, improved Former tobacco smoker, quit approximately 9 years ago Status post talc pleurodesis for persistent right-sided pneumothorax Recommendation: Continue chest tube to suction, monitor for airleak resolution Continue present supportive care measures Continue bronchodilators Continue antibiotics No plans to discharge the patient anytime soon, remains marginal at best. Prognosis remains guarded Will continue to follow Time with Patient: Less than 30
--- NOTE | 2024-12-02 14:23 | P.PN ---
Subjective Progress Note Date: 12/01/24 Principal diagnosis: Reason for follow-up is pneumonia/empyema Patient is a 69-year-old female with a past medical history significant for ulcer Raynaud's phenomena and osteoporosis presenting to the hospital for evaluation of right-sided chest pain and cough, patient be diagnosed with right-sided effusion history of empyema and pneumonia prompted this consultation.Patient is status post right thoracoscopy with decortication for right-sided empyema no OR culture procedure completed on 11/24/2024 Patient is status post installation of tunneled cath of the right pleural space for persistent air leak on 11/29/2024 On today's evaluation that is 12/01/2024, the patient continues to be afebrile, the patient is on 2 L nasal cannula oxygen and breathing comfortably, the Pt denies having any chest pain or cough, the patient denies having any abdominal pain, did have some nausea but no vomiting or any diarrhea. Patient white count 7.37, creatinine 0.55 Objective - Vital Signs Vital signs: Vital Signs Temp 98.0 F 12/01/24 12:00 Pulse 78 12/01/24 12:13 Resp 16 12/01/24 12:00 BP 97/53 12/01/24 12:00 Pulse Ox 96 12/01/24 12:00 FiO2 21 12/01/24 11:14 - Exam GENERAL DESCRIPTION: An elderly female lying in bed in no distress RESPIRATORY SYSTEM: Unlabored breathing , decreased breath sounds at bases HEART: S1 S2 regular rate and rhythm , ABDOMEN: Soft , no tenderness EXTREMITIES: No edema feet - Labs CBC & Chem 7: 12/02/24 08:04 12/02/24 08:04 Labs: Abnormal Lab Results - Last 24 Hours (Table) 12/02/24 12/02/24 Range/Units 08:04 08:04 RBC 2.89 L (4.10-5.20) 10*6/uL Hgb 8.9 L (12.0-15.0) g/dL Hct 26.8 L (37.2-46.3) % Plt Count 559 H (140-440) 10*3/uL Immature Gran # 0.11 H (0.00-0.04) 10*3/uL Sodium 135 L (137-145) mmol/L Glucose 105 H (74-99) mg/dL Calcium 7.7 L (8.4-10.2) mg/dL Microbiology - Last 24 Hours (Table) 11/07/24 09:02 Fungal Culture - Preliminary Lung - Right Assessment and Plan (1) Sepsis Current Visit: Yes Status: Acute Code(s): A41.9 - SEPSIS, UNSPECIFIED ORGANISM SNOMED Code(s): 83115550 (2) Empyema lung Current Visit: Yes Status: Acute Code(s): J86.9 - PYOTHORAX WITHOUT FISTULA SNOMED Code(s): 69081760 (3) Pneumonia Current Visit: Yes Status: Acute Code(s): J18.9 - PNEUMONIA, UNSPECIFIED ORGANISM SNOMED Code(s): 390204169 Plan: 1patient presented to hospital with sepsis in this patient who did have tachypnea and tachycardia elevated white count as well as elevated lactic acid meeting criteria for SIRS/sepsis source is right-sided pneumonia with a question of postobstructive and a possible component of empyema likely community-acquired pathogen in this patient with no history of recent antibiotic exposure or f lulike symptoms 2-patient pleural fluid culture currently growing Streptococcus intermedius micro lab unable to do sensitivity as reported organism not growing 3patient did have repeat CT of the chest on 11/20/2024 concerning for persistent effusion and consolidation, the patient status post right-sided thoracoscopy and decortication completed on 11/24/2024 no OR culture 4patient is afebrile and white count has normalized 5patient is currently being treated with IV Rocephin and oral Flagyl while in patient. Dictation was produced using [employer] dictation software. please excuse any grammatical, word or spelling errors. Time with Patient: Less than 30
--- NOTE | 2024-12-02 14:24 | P.PN ---
Subjective Progress Note Date: 12/02/24 Principal diagnosis: Reason for follow-up is pneumonia/empyema Patient is a 69-year-old female with a past medical history significant for ulcer Raynaud's phenomena and osteoporosis presenting to the hospital for evaluation of right-sided chest pain and cough, patient be diagnosed with right-sided effusion history of empyema and pneumonia prompted this consultation.Patient is status post right thoracoscopy with decortication for right-sided empyema no OR culture procedure completed on 11/24/2024 Patient is status post installation of tunneled cath of the right pleural space for persistent air leak on 11/29/2024 On today's evaluation that is 12/03/2023, patient did have a temperature of 98 F this morning and denies having any chills, patient is on 2 L nasal oxygen and breathing comfortably no chest pain or cough, the patient did not have any nausea vomiting abdominal pain or any diarrhea. No new lab has been obtained today Objective - Vital Signs Vital signs: Vital Signs Temp 98.0 F 12/02/24 12:00 Pulse 78 12/02/24 12:13 Resp 16 12/02/24 12:00 BP 97/53 12/02/24 12:00 Pulse Ox 96 12/02/24 12:00 FiO2 21 11/17/24 11:14 Intake & Output 12/01/24 12/02/24 12/02/24 18:59 06:59 18:59 Intake Total 20 20 250 Output Total 90 110 Balance -70 -90 250 Weight 59.3 kg Intake: IV 20 20 10 Invasive Line 5 20 20 10 Oral 240 Output: Chest Tube Drainage 90 110 Chest Tube Right Upper 90 110 Posterior Chest Other: Voiding Method Toilet Toilet Toilet # Voids 1 1 # Bowel Movements 1 - Exam GENERAL DESCRIPTION: An elderly female lying in bed in no distress RESPIRATORY SYSTEM: Unlabored breathing , decreased breath sounds at bases HEART: S1 S2 regular rate and rhythm , ABDOMEN: Soft , no tenderness EXTREMITIES: No edema feet - Labs CBC & Chem 7: 12/02/24 08:04 12/02/24 08:04 Labs: Abnormal Lab Results - Last 24 Hours (Table) 12/02/24 12/02/24 Range/Units 08:04 08:04 RBC 2.89 L (4.10-5.20) 10*6/uL Hgb 8.9 L (12.0-15.0) g/dL Hct 26.8 L (37.2-46.3) % Plt Count 559 H (140-440) 10*3/uL Immature Gran # 0.11 H (0.00-0.04) 10*3/uL Sodium 135 L (137-145) mmol/L Glucose 105 H (74-99) mg/dL Calcium 7.7 L (8.4-10.2) mg/dL Microbiology - Last 24 Hours (Table) 11/07/24 09:02 Fungal Culture - Preliminary Lung - Right Assessment and Plan (1) Sepsis Current Visit: Yes Status: Acute Code(s): A41.9 - SEPSIS, UNSPECIFIED ORGANISM SNOMED Code(s): 27731500 (2) Empyema lung Current Visit: Yes Status: Acute Code(s): J86.9 - PYOTHORAX WITHOUT FISTULA SNOMED Code(s): 51062716 (3) Pneumonia Current Visit: Yes Status: Acute Code(s): J18.9 - PNEUMONIA, UNSPECIFIED ORGANISM SNOMED Code(s): 620208061 Plan: 1patient presented to hospital with sepsis in this patient who did have tachy pnea and tachycardia elevated white count as well as elevated lactic acid meeting criteria for SIRS/sepsis source is right-sided pneumonia with a question of postobstructive and a possible component of empyema likely community-acquired pathogen in this patient with no history of recent antibiotic exposure or flulike symptoms 2-patient pleural fluid culture currently growing Streptococcus intermedius micro lab unable to do sensitivity as reported organism not growing 3patient did have repeat CT of the chest on 11/20/2024 concerning for persistent effusion and consolidation, the patient status post right-sided thoracoscopy and decortication completed on 11/24/2024 no OR culture 4patient is afebrile and white count has normalized , we will continue with IV Rocephin and oral Flagyl and transition to oral antibiotics on discharge Dictation was produced using [employer] dictation software. please excuse any grammatical, word or spelling errors. Time with Patient: Less than 30
--- NOTE | 2024-12-02 19:15 | P.PN ---
Subjective Progress Note Date: 12/02/24 Patient evaluated today on the cardiac unit. Currently sitting up in the chair. Pigtail catheter in place. Atrium changed today. Chest xray today reveals diminished size right basilar fluid collection. Some adjacent infiltrate in present. Drainage catheter is stable in position. Small left pleural effusion. Reporting worsening lower extremity edema. Labs today reveal WBC 17.48, hgb 10.5, sodium 133, potassium 4.1, BUN 3, creatinine 0.56. 11/18/2024 Patient evaluated today on follow up. Currently resting in bed. DAVEY wraps to bilateral lower extremities continue. Patient has had 440 mls of drainage from the right sided chest tube in the last 24 hours. S/P dornase and alteplase today. Chest xray reveals small to moderate right pleural effusion. Sodium up to 135. 11/19/2024 Patient evaluated in follow-up on the cardiac unit. She continues with a pigtail catheter to the right chest wall secondary to an infectious empyema. Cultures from the empyema showing Streptococcus intermedius. Repeat pleural cultures are negative so far. She remains on IV ceftriaxone and IV metronidazole with ID following this patient closely. CT surgery is following this patient. Her chest x-ray today reveals increasing moderate size right pleural effusion and stable position of the PEG pleural pigtail catheter. There is a similar right basilar consolidation concerning for infiltrate versus atelectasis. There is emphysematous changes. WBC 18.76, hgb 10.6, sodium 134, potassium 3.8, BUN 7, creatinine 0.49. She is currently on oxygen at 2 L of nasal cannula saturations of 92%. Blood pressure 104/70. Drainage from the pleural catheter is decreasing. 12/01/2024 Assumed care of this patient today from Dr Muñoz. Pigtail catheter remains in place. Patient is postoperative day #7 VATS procedure, and postoperative day #2 instillation of talc into the right pleural space. Chest xray today reveals improving loculated right pneumothorax. Chest tube in place. Bilateral pleural effusions are present. Patient with worsening peripheral edema/foot edema. Was taken off the IV lasix. 12/02/2024 Patient is postoperative day #8 VATS procedure as well as postoperative day #3 instillation of talc into the right pleural space. Her pigtail catheter remains in place. Chest x-ray today reveals a right thoracotomy tube present with evidence of pneumothorax. Small bilateral pleural effusions. Her labs today reveal a sodium level of 135 BUN of 10 creatinine of 0.55. Hemoglobin stable at 8.9. Review of Systems Constitutional: Denied any fatigue denied any fever. Cardio vascular: denied any chest pain, palpitations Gastrointestinal: denied any nausea, vomiting, diarrhea Pulmonary: Denied any shortness of breath cough Neurologic denied any new focal deficits All inpatient medications were reviewed and appropriate changes in these medications as dictated in the interval history and assessment and plan. PHYSICAL EXAMINATION: GENERAL: The patient is alert and oriented x3, not in any acute distress. Well developed, well nourished. HEENT: Pupils are round and equally reacting to light. EOMI. No scleral icterus. No conjunctival pallor. Normocephalic, atraumatic. No pharyngeal erythema. No thyromegaly. CARDIOVASCULAR: S1 and S2 present. No murmurs, rubs, or gallops. PULMONARY: Chest is clear to auscultation, no wheezing or crackles. Pigtail catheter in place right chest wall. ABDOMEN: Soft, nontender, nondistended, normoactive bowel sounds. No palpable or ganomegaly. MUSCULOSKELETAL: No joint swelling or deformity. EXTREMITIES: No cyanosis, clubbing, or pedal edema. Mild lower extremity edema. Moderate pedal edema NEUROLOGICAL: Gross neurological examination did not reveal any focal deficits. SKIN: No rashes. Assessment Right sided empyema with thorascopy and decortication on 11/24/2024, status post talc instillation on 11/29/2024 Loculated pleural effusion s/p thoracentesis with cultures growing streptococcus intermedius Acute hypoxemic respiratory failure from above Peripheral edema Leukocytosis Hyponatremia Peripheral edema Hx Reynauds phenomenon Former smoker GI prophylaxis Full Code Plan Continue IV ceftriaxone, oral metronidazole CT surgery following Pulmonology following ID following Recommend to DAVEY wrap lower extremities monitor electrolytes and renal function Continue to encourage incentive spirometer 10 x an hour Chest xray in the AM PT/OT consultation The impression and plan of care has been dictated by Nitza Davis, Nurse Practitioner as directed. Dr. Riri MD I have performed a history and physical examination and medical decision making of this patient, discussed the same with the dictator, and agree with the dictators assessment and plan as written, documented as a scribe. Based on total visit time, I have performed more than 50% of this visit. Objective - Vital Signs Vital signs: Vital Signs Temp 98.0 F 12/02/24 08:00 Pulse 82 12/02/24 08:47 Resp 18 12/02/24 08:00 BP 99/61 12/02/24 08:00 Pulse Ox 97 12/02/24 08:00 FiO2 21 11/17/24 11:14 Intake & Output 12/01/24 12/02/24 12/02/24 18:59 06:59 18:59 Intake Total 20 20 240 Output Total 90 110 Balance -70 -90 240 Weight 59.3 kg Intake: IV 20 20 Invasive Line 5 20 20 Oral 240 Output: Chest Tube Drainage 90 110 Chest Tube Right Upper 90 110 Posterior Chest Other: Voiding Method Toilet Toilet # Voids 1 1 # Bowel Movements 1 - Labs CBC & Chem 7: 12/02/24 08:04 12/02/24 08:04 Labs: Abnormal Lab Results - Last 24 Hours (Table) 12/01/24 12/01/24 12/02/24 Range/Units 11:13 12:36 08:04 RBC 2.79 L 2.89 L (4.10-5.20) 10*6/uL Hgb 8.7 L 8.9 L (12.0-15.0) g/dL Hct 25.8 L 26.8 L (37.2-46.3) % Plt Count 595 H 559 H (140-440) 10*3/uL Immature Gran # 0.12 H 0.11 H (0.00-0.04) 10*3/uL Monocytes # 1.16 H (0.20-1.00) 10*3/uL Sodium 134 L (137-145) mmol/L Creatinine 0.47 L (0.52-1.04) mg/dL Glucose 100 H (74-99) mg/dL Calcium 7.7 L (8.4-10.2) mg/dL 12/02/24 Range/Units 08:04 RBC (4.10-5.20) 10*6/uL Hgb (12.0-15.0) g/dL Hct (37.2-46.3) % Plt Count (140-440) 10*3/uL Immature Gran # (0.00-0.04) 10*3/uL Monocytes # (0.20-1.00) 10*3/uL Sodium 135 L (137-145) mmol/L Creatinine (0.52-1.04) mg/dL Glucose 105 H (74-99) mg/dL Calcium 7.7 L (8.4-10.2) mg/dL Microbiology - Last 24 Hours (Table) 11/07/24 09:02 Fungal Culture - Preliminary Lung - Right Assessment and Plan Time with Patient: Less than 30
--- NOTE | 2024-12-03 07:22 | XR ---
EXAMINATION TYPE: XR chest 1V portable DATE OF EXAM: 12/03/2024 4:35 AM COMPARISON: Chest radiograph from one day prior. CLINICAL INDICATION: Female, 69 years old with history of Trapped lung; MERGED WITH [facility] TECHNIQUE: XR chest 1V portable Frontal view of the chest. FINDINGS: Lungs/Pleura: Right pneumothorax. Increase in size to moderate to large There is no evidence of pleur al effusion, focal consolidation, or left pneumothorax. Pulmonary vascularity: Unremarkable. Heart/mediastinum: Cardiomediastinal silhouette is unremarkable. Atherosclerotic calcifications are seen in the aorta. Musculoskeletal: No acute osseous pathology. Other findings: None Lines/Tubes: Right thoracotomy tube is present with evidence of pneumothorax. IMPRESSION: Enlarging right pneumothorax compared to prior now moderate to large [facility] Joe Briones, , 12/03/2024 7:19 AM
[2024-12-03 07:43] LABS: Basophils # (A) 0.05 10*3/uL (0.00-0.10); Basophils % (A) 0.7 %; Eosinophils # (A) 0.17 10*3/uL (0.04-0.35); Eosinophils % (A) 2.4 %; HCT 27.7 % (37.2-46.3); HGB 9.1 g/dL (12.0-15.0); Immature Platelet Fraction 8.1 % (1.1-6.1); Lymphocytes # (A) 1.64 10*3/uL (0.90-5.00); Lymphocytes % (A) 23.4 %; MCH 30.7 pg (27.0-32.0); MCHC 32.9 g/dL (32.0-37.0); MCV 93.6 fL (80.0-97.0); Mean Platelet Volume 11.3 fL (9.5-12.2); Monocytes # (A) 0.81 10*3/uL (0.20-1.00); Monocytes % (A) 11.6 %; Neutrophils # (A) 4.19 10*3/uL (1.80-7.70); Neutrophils % (A) 59.9 %; Platelet Count 339 10*3/uL (140-440); RBC 2.96 10*6/uL (4.10-5.20); RDW 21.9 % (11.5-14.5)
[2024-12-03 08:06] LABS: African American GFR (CKD) >90 (>60 ml/min/1.73 sqM); Anion Gap 1 mmol/L; Blood Urea Nitrogen 10 mg/dL (7-17); Calcium 7.7 mg/dL (8.4-10.2); Carbon Dioxide 30 mmol/L (22-30); Chloride 103 mmol/L (98-107); Glucose 81 mg/dL (74-99); Non-African American GFR(CKD) >90 (>60 ml/min/1.73 sqM); Potassium 4.2 mmol/L (3.5-5.1); Sodium 134 mmol/L (137-145)
--- NOTE | 2024-12-03 08:14 | P.PN ---
Subjective Progress Note Date: 12/03/24 Principal diagnosis: Right basilar masslike consolidation, right loculated effusion, leukocytosis, hyponatremia. History of gastric ulcer, raynaud's, distant remote history of smoking POD #9 Right thoracoscopy with decortication and single level intercostal nerve block. Status post day #4 instillation of talc slurry through the chest tube performed by Dr. Laureano. The patient was seen and examined this morning sitting up in the recliner on the cardiac step down unit eating breakfast in no acute distress. Right pleural chest tube present to -10 cm continuous wall suction, air leak present with expiration. CXR reviewed, continues to have trapped lung, pneumothorax looks considerably enlarged today from yesterday although patient is not any more symptomatic and her airleak appears to be a bit less than it was yesterday. States pain is controlled with current medication regimen. Remains in sinus rhythm. Remains on 2 L nasal cannula with oxygen saturation in the mid 90s, continues to be able to achieve 1000 mL on incentive spirometry. No new concerns, patient remains the same. Objective - Vital Signs Vital signs: Vital Signs Temp 97.6 F 12/03/24 03:07 Pulse 75 12/03/24 03:07 Resp 18 12/03/24 03:07 BP 102/63 12/03/24 03:07 Pulse Ox 96 12/02/24 12:00 FiO2 21 11/17/24 11:14 Intake & Output 12/02/24 12/03/24 12/03/24 18:59 06:59 18:59 Intake Total 500 20 Output Total 55 50 Balance 445 -30 Weight 59.4 kg Intake: IV 20 20 Invasive Line 5 20 20 Oral 480 Output: Chest Tube Drainage 55 50 Chest Tube Right Upper 55 50 Posterior Chest Other: Voiding Method Toilet Toilet # Voids 2 - Exam CONSTITUTIONAL: Appears comfortable, cooperative, no acute distress RESPIRATORY: Lungs sounds diminished in the right base. Respirations even, nonlabored. Currently on 2 L nasal cannula with oxygen saturation 96%. Able to achieve 1000 mL on incentive spirometry. Strong cough. CARDIOVASCULAR: S1, S2 present. Regular rate and rhythm. Palpable peripheral pulses bilaterally. Bilateral lower extremity edema present. No calf pain or tenderness noted. SCDs present. GASTROINTESTINAL: Abdomen soft, nontender, nondistended. Active bowel sounds p resent 4 quadrants. Tolerating diet. Positive bowel movement 12/01 GENITOURINARY: Continues to void INTEGUMENTARY: Skin is warm and dry with evidence of good perfusion NEUROLOGIC: Cranial nerves II through XII intact MUSKULOSKELETAL: Able to move all extremities, strength equal bilaterally PSYCHIATRIC: Alert and oriented to person place and time INVASIVE LINES AND TUBES: Right sided chest tube present to -10 cm continous wall suction, air leak present with expiration, 100 ml drainage in the last 24 hours - Allied health notes Allied health notes reviewed: nursing - Labs CBC & Chem 7: 12/03/24 06:50 12/03/24 06:50 Labs: Abnormal Lab Results - Last 24 Hours (Table) 12/02/24 12/02/24 12/03/24 Range/Units 08:04 08:04 06:50 RBC 2.89 L 2.96 L (4.10-5.20) 10*6/uL Hgb 8.9 L 9.1 L (12.0-15.0) g/dL Hct 26.8 L 27.7 L (37.2-46.3) % Plt Count 559 H (140-440) 10*3/uL Immature Gran # 0.11 H 0.14 H (0.00-0.04) 10*3/uL Immature Plt Fraction 8.1 H (1.1-6.1) % Sodium 135 L (137-145) mmol/L Glucose 105 H (74-99) mg/dL Calcium 7.7 L (8.4-10.2) mg/dL 12/03/24 Range/Units 06:50 RBC (4.10-5.20) 10*6/uL Hgb (12.0-15.0) g/dL Hct (37.2-46.3) % Plt Count (140-440) 10*3/uL Immature Gran # (0.00-0.04) 10*3/uL Immature Plt Fraction (1.1-6.1) % Sodium 134 L (137-145) mmol/L Glucose (74-99) mg/dL Calcium 7.7 L (8.4-10.2) mg/dL - Imaging and Cardiology Chest x-ray: report reviewed, image reviewed Assessment and Plan Assessment: Right basilar masslike consolidation Right loculated effusion, complicated, related to infection, status post right thoracoscopy with decortication Leukocytosis Hyponatremia Chest pain, cough with sputum secondary to above Recent 8 pound weight loss over 6 weeks History of gastric ulcer Raynaud's Distant remote history of smoking Plan: Continue chest tube to suction, monitor for air leak resolution Encourage nutrition Antibiotics per infectious disease Encourage incentive spirometry use Increase activity as tolerated Medical management of other comorbidities per internal medicine, pulmonology, infectious disease More recommendations to follow
--- NOTE | 2024-12-03 13:23 | P.PN ---
Subjective Progress Note Date: 12/03/24 Patient evaluated today on the cardiac unit. Currently sitting up in the chair. Pigtail catheter in place. Atrium changed today. Chest xray today reveals diminished size right basilar fluid collection. Some adjacent infiltrate in present. Drainage catheter is stable in position. Small left pleural effusion. Reporting worsening lower extremity edema. Labs today reveal WBC 17.48, hgb 10.5, sodium 133, potassium 4.1, BUN 3, creatinine 0.56. 11/18/2024 Patient evaluated today on follow up. Currently resting in bed. DAVEY wraps to bilateral lower extremities continue. Patient has had 440 mls of drainage from the right sided chest tube in the last 24 hours. S/P dornase and alteplase today. Chest xray reveals small to moderate right pleural effusion. Sodium up to 135. 11/19/2024 Patient evaluated in follow-up on the cardiac unit. She continues with a pigtail catheter to the right chest wall secondary to an infectious empyema. Cultures from the empyema showing Streptococcus intermedius. Repeat pleural cultures are negative so far. She remains on IV ceftriaxone and IV metronidazole with ID following this patient closely. CT surgery is following this patient. Her chest x-ray today reveals increasing moderate size right pleural effusion and stable position of the PEG pleural pigtail catheter. There is a similar right basilar consolidation concerning for infiltrate versus atelectasis. There is emphysematous changes. WBC 18.76, hgb 10.6, sodium 134, potassium 3.8, BUN 7, creatinine 0.49. She is currently on oxygen at 2 L of nasal cannula saturations of 92%. Blood pressure 104/70. Drainage from the pleural catheter is decreasing. 12/01/2024 Assumed care of this patient today from Dr Muñoz. Pigtail catheter remains in place. Patient is postoperative day #7 VATS procedure, and postoperative day #2 instillation of talc into the right pleural space. Chest xray today reveals improving loculated right pneumothorax. Chest tube in place. Bilateral pleural effusions are present. Patient with worsening peripheral edema/foot edema. Was taken off the IV lasix. 12/02/2024 Patient is postoperative day #8 VATS procedure as well as postoperative day #3 instillation of talc into the right pleural space. Her pigtail catheter remains in place. Chest x-ray today reveals a right thoracotomy tube present with evidence of pneumothorax. Small bilateral pleural effusions. Her labs today reveal a sodium level of 135 BUN of 10 creatinine of 0.55. Hemoglobin stable at 8.9. 12/03/2024 Patient is evaluated in follow-up in the cardiac floor. Pigtail catheter remains in place. she has underwent VATS procedure and instillation of talc. Drainage from the pigtail catheter has slowed down over the last 24 hours. Her labs today reveal a white blood cell count of 7.00, hemoglobin 9.1, sodium of 134 BUN of 10 creatinine 0.61. Saturating well on oxygen via nasal cannula with saturations of 96%. Her lower extremities and feet are significantly edematous +2. Review of Systems Constitutional: Denied any fatigue denied any fever. Cardio vascular: denied any chest pain, palpitations Gastrointestinal: denied any nausea, vomiting, diarrhea Pulmonary: Denied any shortness of breath cough Neurologic denied any new focal deficits All inpatient medications were reviewed and appropriate changes in these medications as dictated in the interval history and assessment and plan. PHYSICAL EXAMINATION: GENERAL: The patient is alert and oriented x3, not in any acute distress. Well developed, well nourished. HEENT: Pupils are round and equally reacting to light. EOMI. No scleral icterus. No conjunctival pallor. Normocephalic, atraumatic. No pharyngeal erythema. No thyromegaly. CARDIOVASCULAR: S1 and S2 present. No murmurs, rubs, or gallops. PULMONARY: Chest is clear to auscultation, no wheezing or crackles. Pigtail catheter in place right chest wall. ABDOMEN: Soft, nontender, nondistended, normoactive bowel sounds. No palpable organomegaly. MUSCULOSKELETAL: No joint swelling or deformity. EXTREMITIES: No cyanosis, clubbing, or pedal edema. Mild lower extremity edema. Moderate pedal edema NEUROLOGICAL: Gross neurological examination did not reveal any focal deficits. SKIN: No rashes. Assessment Right sided empyema with thorascopy and decortication on 11/24/2024, status post talc instillation on 11/29/2024 Loculated pleural effusion s/p thoracentesis with cultures growing streptococcus intermedius Acute hypoxemic respiratory failure from above Peripheral edema Leukocytosis Hyponatremia Peripheral edema Hx Reynauds phenomenon Former smoker GI prophylaxis Full Code Plan Continue IV ceftriaxone, oral metronidazole CT surgery following Pulmonology following ID following Recommend to DAVEY wrap lower extremities Add IV lasix 20 mg [id number] and strict intake and output monitoring monitor electrolytes and renal function Continue to encourage incentive spirometer 10 x an hour Chest xray in the AM PT/OT consultation The impression and plan of care has been dictated by Nitza Davis, Nurse Practitioner as directed. Dr. Riri MD I have performed a history and physical examination and medical decision making of this patient, discussed the same with the dictator, and agree with the dictators assessment and plan as written, documented as a scribe. Based on total visit time, I have performed more than 50% of this visit. Objective - Vital Signs Vital signs: Vital Signs Temp 97.6 F 12/03/24 03:07 Pulse 80 12/03/24 08:42 Resp 18 12/03/24 03:07 BP 102/63 12/03/24 03:07 Pulse Ox 96 12/02/24 12:00 FiO2 21 11/17/24 11:14 Intake & Output 12/02/24 12/03/24 12/03/24 18:59 06:59 18:59 Intake Total 500 20 240 Output Total 55 50 Balance 445 -30 240 Weight 59.4 kg Intake: IV 20 20 Invasive Line 5 20 20 Oral 480 240 Output: Chest Tube Drainage 55 50 Chest Tube Right Upper 55 50 Posterior Chest Other: Voiding Method Toilet Toilet # Voids 2 - Labs CBC & Chem 7: 12/03/24 06:50 12/03/24 06:50 Labs: Abnormal Lab Results - Last 24 Hours (Table) 12/03/24 12/03/24 Range/Units 06:50 06:50 RBC 2.96 L (4.10-5.20) 10*6/uL Hgb 9.1 L (12.0-15.0) g/dL Hct 27.7 L (37.2-46.3) % Immature Gran # 0.14 H (0.00-0.04) 10*3/uL Immature Plt Fraction 8.1 H (1.1-6.1) % Sodium 134 L (137-145) mmol/L Calcium 7.7 L (8.4-10.2) mg/dL Assessment and Plan Time with Patient: Less than 30
--- NOTE | 2024-12-03 15:24 | P.PN ---
Subjective Progress Note Date: 12/03/24 Principal diagnosis: Right sided complicated pleural effusion/empyema The patient is seen today November 27, 2024 in follow-up on the selective care unit. She has since undergone decortication of the loculated fluid in her right chest on November 24, 2024. Right sided chest tube remains in place. Pleur-evac to wall suction. Still with a positive leak. Chest x-ray reveals slightly increased moderate size right hydropneumothorax with stable right chest tube. Similar right basilar patchy airspace opacities and consolidation concerning for atelectasis and/or infiltrate. Small similar pleural effusion. Follow-up pleural fluid cultures revealed no growth. White count 7.8. Hemoglobin 9.5. Platelets 477. Sodium 132. Potassium 3.5. Bicarb 32. BUN 10. Creatinine 0.57. Glucose 76. She continues to work with the incentive spirometer. She remains on bronchodilators. Antibiotics in the form of ceftriaxone. Heparin for DVT prophylaxis. Remains on IV diuretics. Currently in a -1.2 L balance. patient was seen today on 11/28/2024, patient continues to have right-sided chest tube in place, however needs to be pulled out about 3 cm since its not in the center of the loculated pleural effusion, and this is being done by thoracic surgery. Presently the patient is comfortable, not in distress, remains on antibiotics, and again she continues to have a bit of a trapped lung and loculated pneumothorax. Hoping by adjusting the chest tube, that may help expand the lung at the more. Patient continues to have an air leak. No labs today. Patient is afebrile and hemodynamically stable, on 2 L nasal cannula O2 sat is 95% Seen today on 11/30/2024, patient had bowel pleurodesis done yesterday, continues to have chest tube in place continues to have loculated right-sided pneumothorax, continues to have significant air leak. Patient however seems to be very comfortable and not in distress. Remains on antibiotics for her empyema, her white count responded well 8.19 hemoglobin 9.1 electrolytes are normal potassium is a bit low at 3.2 renal profile is normal Seen today on 12/01/2024, patient is doing well clinically and does not seem to be in distress, however continues to have a significant complicated issue with her persistent right-sided pneumothorax and trapped lung, patient is status post decortication she is also status post talc pleurodesis, continues to have an air leak, continues to be on oxygen, not making a dramatic improvement overall. Patient is now POD #7 Right thoracoscopy with decortication and single level intercostal nerve block. Status post day #2 instillation of talc slurry through the chest tube. Chest x-ray was reviewed today, again she continues to have a pneumothorax and continues to have airleak. CBC is basically normal except for hemoglobin of 8.7 electrolytes are normal BUN is 7 creatinine 0.47 patient was seen today on 12/02/2024, clinically the patient is doing well, asymptomatic, patient is now postoperative day #8 right thoracoscopy with decortication and postoperative day #3 instillation of talc slurry through the chest tube. No major change in the last 24 hours, the loculated pneumothorax may seem to be a bit smaller today, continues to have continuous airleak in spite of talc pleurodesis. Patient is comfortable not in distress. Remains on antibiotics for empyema Seen today on 12/03/2024, not much of the change continues to have airleak continues to have a loculated pneumothorax, as [id number] her chest x-ray which seems to show that her pneumothorax is even larger today. Patient is postoperative day #9 right thoracoscopy with decortication and postoperative day #4 instillation of talc through the chest tube. Clinically patient is comfortable, not in distress. Remains on antibiotics for empyema. Objective - Vital Signs Vital signs: Vital Signs Temp 97.6 F 12/03/24 03:07 Pulse 82 12/03/24 13:07 Resp 18 12/03/24 03:07 BP 102/63 12/03/24 03:07 Pulse Ox 96 12/02/24 12:00 FiO2 21 11/17/24 11:14 Intake & Output 12/02/24 12/03/24 12/03/24 18:59 06:59 18:59 Intake Total 500 20 240 Output Total 55 50 Balance 445 -30 240 Weight 59.4 kg Intake: IV 20 20 Invasive Line 5 20 20 Oral 480 240 Output: Chest Tube Drainage 55 50 Chest Tube Right Upper 55 50 Posterior Chest Other: Voiding Method Toilet Toilet # Voids 2 - Exam GENERAL EXAM: Alert, cachectic 69-year-old female, on 2 L nasal cannula HEAD: Normocephalic and atraumatic EYES: Normal reaction of pupils, equal size. NOSE: Clear with pink turbinates. THROAT: No erythema or exudates. NECK: No masses, no JVD. CHEST: No chest wall deformity. Right-sided chest tube is noted, connected to Pleur-evac. Ongoing air leak noted LUNGS: Diminished breath sound bilaterally, right more so than left. CVS: S1 and S2 normal with no audible murmur, regular rhythm. No extra heart sounds ABDOMEN: No hepatosplenomegaly, active bowel sounds, no guarding or rigidity. SKIN: No rashes CENTRAL NERVOUS SYSTEM: Alert and oriented x 3 no focal deficit EXTREMITIES: No clubbing edema or cyanosis - Labs CBC & Chem 7: 12/03/24 06:50 12/03/24 06:50 Labs: Abnormal Lab Results - Last 24 Hours (Table) 12/03/24 12/03/24 Range/Units 06:50 06:50 RBC 2.96 L (4.10-5.20) 10*6/uL Hgb 9.1 L (12.0-15.0) g/dL Hct 27.7 L (37.2-46.3) % Immature Gran # 0.14 H (0.00-0.04) 10*3/uL Immature Plt Fraction 8.1 H (1.1-6.1) % Sodium 134 L (137-145) mmol/L Calcium 7.7 L (8.4-10.2) mg/dL Assessment and Plan Assessment: Impression: Right-sided empyema status post thoracentesis, followed by pigtail catheter placement, followed by lytic therapy,POD 9 right thoracoscopy with decortication and single level intercostal nerve block.Status post day #4 instillation of talc slurry through the chest tube Acute hypoxemic respiratory failure, secondary to above, currently on 2 L/min nasal cannula, secondary to above Acute leukocytosis, secondary to above, improved Hyponatremia, appears euvolemic, improved Former tobacco smoker, quit approximately 9 years ago Status post talc pleurodesis for persistent right-sided pneumothorax Recommendation: Continue chest tube to suction, monitor for airleak resolution Continue present supportive care measures Continue bronchodilators Continue antibiotics Not ready for discharge Will continue to follow Time with Patient: Less than 30
--- NOTE | 2024-12-03 15:35 | P.PN ---
Subjective Progress Note Date: 12/03/24 Principal diagnosis: Reason for follow-up is pneumonia/empyema Patient is a 69-year-old female with a past medical history significant for ulcer Raynaud's phenomena and osteoporosis presenting to the hospital for evaluation of right-sided chest pain and cough, patient be diagnosed with right-sided effusion history of empyema and pneumonia prompted this consultation.Patient is status post right thoracoscopy with decortication for right-sided empyema no OR culture procedure completed on 11/24/2024 Patient is status post installation of tunneled cath of the right pleural space for persistent air leak on 11/29/2024 On today's evaluation that is 12/03/2024, Patient is afebrile patient is currently on 2 L nasal oxygen and denies having any shortness of breath, the pat ient denies any chest pain or cough, the patient denies any nausea vomiting did not have any abdominal pain and no diarrhea. Patient white count 7.0, creatinine 0.61 Objective - Vital Signs Vital signs: Vital Signs Temp 97.6 F 12/03/24 03:07 Pulse 82 12/03/24 13:07 Resp 18 12/03/24 03:07 BP 102/63 12/03/24 03:07 Pulse Ox 96 12/02/24 12:00 FiO2 21 11/17/24 11:14 Intake & Output 12/02/24 12/03/24 12/03/24 18:59 06:59 18:59 Intake Total 500 20 240 Output Total 55 50 Balance 445 -30 240 Weight 59.4 kg Intake: IV 20 20 Invasive Line 5 20 20 Oral 480 240 Output: Chest Tube Drainage 55 50 Chest Tube Right Upper 55 50 Posterior Chest Other: Voiding Method Toilet Toilet # Voids 2 - Exam GENERAL DESCRIPTION: An elderly female lying in bed in no distress RESPIRATORY SYSTEM: Unlabored breathing , decreased breath sounds at bases HEART: S1 S2 regular rate and rhythm , ABDOMEN: Soft , no tenderness EXTREMITIES: No edema feet - Labs CBC & Chem 7: 12/03/24 06:50 12/03/24 06:50 Labs: Abnormal Lab Results - Last 24 Hours (Table) 12/03/24 12/03/24 Range/Units 06:50 06:50 RBC 2.96 L (4.10-5.20) 10*6/uL Hgb 9.1 L (12.0-15.0) g/dL Hct 27.7 L (37.2-46.3) % Immature Gran # 0.14 H (0.00-0.04) 10*3/uL Immature Plt Fraction 8.1 H (1.1-6.1) % Sodium 134 L (137-145) mmol/L Calcium 7.7 L (8.4-10.2) mg/dL Assessment and Plan (1) Sepsis Current Visit: Yes Status: Acute Code(s): A41.9 - SEPSIS, UNSPECIFIED ORGANISM SNOMED Code(s): 84177548 (2) Empyema lung Current Visit: Yes Status: Acute Code(s): J86.9 - PYOTHORAX WITHOUT FISTULA SNOMED Code(s): 36833352 (3) Pneumonia Current Visit: Yes Status: Acute Code(s): J18.9 - PNEUMONIA, UNSPECIFIED ORGANISM SNOMED Code(s): 527295247 Plan: 1patient presented to hospital with sepsis in this patient who did have tachypnea and tachycardia elevated white count as well as elevated lactic acid meeting criteria for SIRS/sepsis source is right-sided pneumonia with a question of postobstructive and a possible component of empyema likely community-acquired pathogen in this patient with no history of recent antibiotic exposure or flulike symptoms 2-patient pleural fluid culture currently growing Streptococcus intermedius micro lab unable to do sensitivity as reported organism not growing 3patient did have repeat CT of the chest on 11/20/2024 concerning for persistent effusion and consolidation, the patient status post right-sided thoracoscopy and decortication completed on 11/24/2024 no OR culture 4patient is afebrile and white count has normalized 5patient is currently being treated with IV Rocephin and oral Flagyl and transition to oral antibiotics on discharge Dictation was produced using [employer] dictation software. please excuse any grammatical, word or spelling errors. Time with Patient: Less than 30
[2024-12-03] MEDS: FUROSEMIDE 10 MG/ML 2 ML VIAL IV SCH (16:23)
[2024-12-04 05:02] LABS: Basophils # (A) 0.06 10*3/uL (0.00-0.10); Basophils % (A) 0.7 %; Eosinophils # (A) 0.13 10*3/uL (0.04-0.35); Eosinophils % (A) 1.6 %; HCT 27.2 % (37.2-46.3); HGB 8.8 g/dL (12.0-15.0); Lymphocytes # (A) 1.74 10*3/uL (0.90-5.00); MCH 30.7 pg (27.0-32.0); MCHC 32.4 g/dL (32.0-37.0); MCV 94.8 fL (80.0-97.0); Mean Platelet Volume 10.9 fL (9.5-12.2); Monocytes % (A) 10.9 %; Neutrophils # (A) 5.34 10*3/uL (1.80-7.70); Neutrophils % (A) 64.5 %; Platelet Count 424 10*3/uL (140-440); RBC 2.87 10*6/uL (4.10-5.20); RDW 22.3 % (11.5-14.5); WBC 8.28 10*3/uL (4.50-10.00)
[2024-12-04 05:19] LABS: African American GFR (CKD) >90 (>60 ml/min/1.73 sqM); Anion Gap 4 mmol/L; Blood Urea Nitrogen 11 mg/dL (7-17); Calcium 8.3 mg/dL (8.4-10.2); Carbon Dioxide 33 mmol/L (22-30); Chloride 98 mmol/L (98-107); Glucose 78 mg/dL (74-99); Magnesium 1.6 mg/dL (1.6-2.3); Non-African American GFR(CKD) >90 (>60 ml/min/1.73 sqM); Sodium 135 mmol/L (137-145)
[2024-12-04 07:09] LABS: Anisocytosis (M) Present
--- NOTE | 2024-12-04 07:18 | P.PN ---
Subjective Progress Note Date: 12/04/24 Principal diagnosis: Right basilar masslike consolidation, right loculated effusion, leukocytosis, hyponatremia. History of gastric ulcer, raynaud's, distant remote history of smoking POD #10 Right thoracoscopy with decortication and single level intercostal nerve block. Status post day #5 instillation of talc slurry through the chest tube performed by Dr. Laureano. The patient was seen and examined this morning sitting up in the recliner on the cardiac step down unit in no acute distress. Right pleural chest tube present to -20 cm continuous wall suction, continuous air leak present. CXR reviewed, better than yesterday, lung somewhat reexpanded compared to yesterday after wall suction increased to -20 cm. States pain is controlled with current medication regimen. Remains in sinus rhythm. Remains on 2 L nasal cannula with oxygen saturation in the high 90s, continues to be able to achieve 1000 mL on incentive spirometry. No new concerns, patient remains the same clinically. Objective - Vital Signs Vital signs: Vital Signs Temp 97.8 F 12/04/24 05:06 Pulse 84 12/04/24 05:06 Resp 18 12/04/24 05:06 BP 106/63 12/04/24 05:06 Pulse Ox 100 12/04/24 05:06 FiO2 21 11/17/24 11:14 Intake & Output 12/03/24 12/04/24 12/04/24 18:59 06:59 18:59 Intake Total 260 20 Output Total 0 1310 Balance 260 -1290 Weight 57.7 kg Intake: IV 20 20 Invasive Line 5 20 20 Oral 240 Output: Chest Tube Drainage 0 135 Chest Tube Right Upper 0 135 Posterior Chest Urine 1175 Other: Voiding Method Toilet Toilet # Voids 1 - Exam CONSTITUTIONAL: Appears comfortable, cooperative, no acute distress RESPIRATORY: Lungs sounds diminished in the right base. Respirations even, nonlabored. Currently on 2 L nasal cannula with oxygen saturation 100%. Able to achieve 1000 mL on incentive spirometry. Strong cough. CARDIOVASCULAR: S1, S2 present. Regular rate and rhythm. Palpable peripheral pulses bilaterally. Bilateral lower extremity edema present. No calf pain or tenderness noted. SCDs present. GASTROINTESTINAL: Abdomen soft, nontender, nondistended. Active bowel sounds present 4 quadrants. Tolerating diet. Positive bowel movement 12/01 GENITOURINARY: Continues to void INTEGUMENTARY: Skin is warm and dry with evidence of good perfusion NEUROLOGIC: Cranial nerves II through XII intact MUSKULOSKELETAL: Able to move all extremities, strength equal bilaterally PSYCHIATRIC: Alert and oriented to person place and time INVASIVE LINES AND TUBES: Right sided chest tube present to -20 cm continous wall suction, continuous air leak present, 100 ml drainage in the last 24 hours - Allied health notes Allied health notes reviewed: nursing - Labs CBC & Chem 7: 12/04/24 04:08 12/04/24 04:08 Labs: Abnormal Lab Results - Last 24 Hours (Table) 12/03/24 12/03/24 12/04/24 Range/Units 06:50 06:50 04:08 RBC 2.96 L (4.10-5.20) 10*6/uL Hgb 9.1 L (12.0-15.0) g/dL Hct 27.7 L (37.2-46.3) % Immature Gran # 0.14 H (0.00-0.04) 10*3/uL Immature Plt Fraction 8.1 H (1.1-6.1) % Sodium 134 L 135 L (137-145) mmol/L Carbon Dioxide 33 H (22-30) mmol/L Calcium 7.7 L 8.3 L (8.4-10.2) mg/dL 12/04/24 Range/Units 04:08 RBC 2.87 L (4.10-5.20) 10*6/uL Hgb 8.8 L (12.0-15.0) g/dL Hct 27.2 L (37.2-46.3) % Immature Gran # 0.11 H (0.00-0.04) 10*3/uL Immature Plt Fraction (1.1-6.1) % Sodium (137-145) mmol/L Carbon Dioxide (22-30) mmol/L Calcium (8.4-10.2) mg/dL - Imaging and Cardiology Chest x-ray: image reviewed Assessment and Plan Assessment: Right basilar masslike consolidation Right loculated effusion, complicated, related to infection, status post right t horacoscopy with decortication Leukocytosis Hyponatremia Chest pain, cough with sputum secondary to above Recent 8 pound weight loss over 6 weeks History of gastric ulcer Raynaud's Distant remote history of smoking Plan: Continue chest tube to -20 cm suction, monitor for air leak resolution Encourage nutrition Antibiotics per infectious disease Encourage incentive spirometry use Increase activity as tolerated Medical management of other comorbidities per internal medicine, pulmonology, infectious disease More recommendations to follow
--- NOTE | 2024-12-04 08:14 | XR ---
EXAMINATION TYPE: XR chest 1V portable DATE OF EXAM: 12/04/2024 6:34 AM COMPARISON: 12/03/2024 CLINICAL INDICATION: Female, 69 years old with history of Trapped lung, pneumothorax TECHNIQUE: XR chest 1V portable view(s) obtained. FINDINGS: The heart size is normal. The pulmonary vasculature is normal. Right lower lobe infiltrate is present, improved. Small left pleural effusion is present. Loculated right pneumothorax is present. Chest tube is in position. Pneumothorax is diminished in siz e over the interval. IMPRESSION: 1. Diminished size of loculated right lower lateral lung pneumothorax. 2. Small left pleural effusion [facility], , 12/04/2024 8:11 AM
[2024-12-04] MEDS: MAGNESIUM SULFATE-D5W PMX 1 GM in DEXTROSE/WATER 1 100ML.BAG IVPB SCH (10:06)
--- NOTE | 2024-12-04 16:34 | P.PN ---
Subjective Progress Note Date: 12/04/24 Principal diagnosis: Sepsis. 69-year-old female presenting the emergency department last night with a chief complaint of right upper quadrant abdominal pain with radiation to the right back. Ongoing for the last 2 days. Workup in the emergency department including abdominal/pelvis CT which does not show any acute intra-abdominal process. Remarkable for right middle lobe cystic lesion and moderate to large right-sided pleural effusion. Follow-up chest CTA did not show any evidence of pulmonary embolism. Right basilar masslike consolidation measuring 5.4 x 5.8 cm, concerning for possible malignancy. Additional surrounding airspace consolidation, possibly superimposed pneumonia. Large right-sided pleural effusion noted. Severe centrilobular emphysematous changes. Labs remarkable for a CBC with a WBC count of 62.7, hemoglobin 13.4, platelets 801. CMP with a sodium 130, potassium 5, chloride 95, serum bicarb 24, BUN 28, creatinine 0.88, glucose 105. Lactate 2.7 down to 1.1. AST 57, ALT 26, ALP 268. Troponins less than 0.012. NT proBNP 467. Lipase 26. Patient currently being evaluated in emergency department. She is resting comfortably on 2 L/min nasal cannula. SpO2 reading 98%. Again endorses above-mentioned right upper quadrant pain with radiation to the right thoracic level back. Previously, rated 9 out of 10 on a 10 point numerical scale. Started approximately 2 days ago. Denies any nausea, vomiting, change in bowel movements, diarrhea. Does endorse previous congested cough without much sputum production. Denies any significant purulent sputum or hemoptysis. Denies any fevers, chills. No previously diagnosed COPD. She is a former tobacco smoker, quit approximately 9 years ago. Prior to this, she smoked 1 pack, which lasted for almost a month. No family or personal history of lung cancer. No significant unintentional weight loss. No recent outpatient treatments for pneumonias. Her primary care provider is Dr. Muñoz. Given empiric doses of azithromycin, Rocephin, Flagyl, and vancomycin in the ED. Afebrile. Normal saline infusing at 130 mL/h. Nontoxic appearance. Hemodynamic stable. The patient is seen today November 08, 2024 in follow-up on the regular medical floor. She is currently sitting up in bed. Awake and alert in no acute distress. Maintaining good O2 saturations in the 90s on 2 L/min per nasal cannula. She did have a right sided pigtail catheter placed yesterday. She als o had a thoracentesis performed yesterday. She continues with hazy yellow output. Her pleural fluid was exudate with a protein of 3.6 and an LDH greater than 2500. Procalcitonin was 2.74. She is currently on Unasyn. Chest x-ray continues to show ongoing moderate to large right pleural effusion with underlying atelectasis and/or consolidation. Minimally decreased compared to previous. Pleural fluid cultures are pending. White count 26.2. Hemoglobin 11.2. Platelets 544. Sodium 134. Potassium 3.7. Bicarb 23. BUN 14. Creatinine 0.52. Viral screen was negative for influenza A/B, RSV, COVID. The patient is seen today November 09, 2024 in follow-up on the regular medical floor. She is awake and alert in no acute distress. She did have some issues with desaturations earlier this morning with minimal activity. Chest x-ray shows worsening left-sided pleural effusion which is now moderate. She is currently maintaining good O2 saturations in the mid 90s on 5 L high flow nasal cannula. She is afebrile. Hemodynamically stable. She did have lytics instilled into the pigtail catheter yesterday. A total of 1420 mL have been returned since. Additional lytics will be instilled today per CT service. She continues to work well with the incentive spirometer. She remains on Unasyn. Pleural fluid cultures pending. Cytology pending. White count 38.6. Hemoglobin 11.5. Platelets 605. Seen today on 11/10/2024, patient is feeling better, breathing easier, chest x- ray is not showing much improvement on the right side pleural effusion. Still undergoing lytic therapy. May have to consider repeat CT of the chest in the next couple of days. Clinically however the patient is doing well, remains on antibiotics, cytology from the pleural effusion came back negative, cultures remain negative, still the differential diagnosis includes malignancy and/or parapneumonic complicated pleural effusion. Patient was seen today on 11/11/2024, patient is doing well, unfortunately angelo fontaine pulled out her pigtail catheter accidentally, and no more lytic therapy could be given for this patient at this point, the chest x-ray is showing improvement, but her initial CT of the chest raised the possibility of malignancy/lung mass, I will go ahead and recommend repeat CT of the chest now for follow-up on the initially abnormal CT of the chest. Clinically I did not believe the patient had lung mass, I felt she had masslike consolidation. And may have resolved based on the fact that the patient has been receiving lytic therapy for her complicated right-sided pleural effusion. The pleural effusion was negative for malignancy. And it was negative for active infection as the cultures have been negative. Patient was seen today on 11/12/2024, patient seems to be comfortable, not in distress, continues to have leukocytosis with WBC count of 24,000, continues to have a right middle lobe cystic lesion, exact etiology is not clear, strongly doubt malignancy I believe is most likely a bulla filled with fluid. Or could represent retained secretions and airway. CT of the chest showed hydropneumothorax, I believe the patient may benefit eventually either from placement of pigtail catheter again or decortication if thoracic surgery is willing. May also require bronchoscopy and biopsy or evaluation of the right middle lobe. At this point in time we are continuing antibiotics, and we need to readdress that pigtail catheter again on Wednesday. Patient was seen today on 11/13/2024, patient is comfortable, not in distress, on nasal cannula patient is supposed to have placement of pigtail catheter again tomorrow for lytic therapy. In the meantime remains on antibiotics, continues to have loculated pleural effusion, and the fluid came back positive for Streptococcus intermedius. Continues to have leukocytosis with WC count of 24.0 hemoglobin 10.3. Patient is on 2 L nasal cannula and O2 sat is 91 to 94% Progress note dated November 14, 2024. 69-year-old female seen today in room 360. She is awake and alert. She is resting comfortably in bed. The patient currently is on Rocephin and Flagyl. She is on 2 L nasal cannula. No IV fluids. The pigtail catheter will be replaced today. She continues to be followed by cardiothoracic surgery. Laboratory data includes a white count of 18.8, hemoglobin 10.6, hematocrit 31.4, and a platelet count of 506,000. Sodium 134, potassium 3.8, chlorides 106, CO2 22, BUN 7, creatinine 0.49. Glucose is 70. Albumin 1.7. Pleural fluid cultures were positive for Streptococcus intermedius. Chest x-ray shows a persistent right basilar opacity/effusion. Progress note dated November 15, 2024. 69-year-old female seen today in room 360. The patient is resting comfortably in bed. She is currently on 2 L. No IV fluids. She has a right pigtail catheter in place. She is receiving both Rocephin and Flagyl, for streptococcal infection. The patient is receiving tPA, and alpha dornase, as per cardiothoracic surgery. Clinically, she is feeling well. She is awake and alert. No respiratory distress. No new laboratory data today. Chest x-ray shows a right basilar pleural catheter. Right sided pleural effusion has diminished. Progress note dated November 16, 2024. 69-year-old female seen today in room 360. She is sitting up in bed. She is alert and awake. No acute distress. She is continues on nasal O2 at 2 L. She is getting saline at 10 cc an hour. Her right pigtail catheter continues to function. She did receive tPA and alpha dornase today, via cardiothoracic surgery. The patient continues on Rocephin and Flagyl. No new laboratory data today. Chest x-ray today, November 16, shows diminished right lower lobe fluid collection. Drainage catheter, is noted. Progress note dated November 17, 2024. 69-year-old female seen again in room 360. She sitting in the chair next to the hospital bed. She is on room air. She continues on Rocephin and Flagyl. The patient did receive tPA, and alpha dornase today, administered by cardiothoracic surgery. Her chest x-ray continues to show improvement. Clinically, she is very stable. She has a right sided pigtail catheter in place. White count of 17.5, hemoglobin 10.5, hematocrit 30.8, platelet count 703,000. Sodium 133, potassium 4.1, chlorides 108, CO2 23, BUN 3, creatinine 0.56. Glucose is 100. Calcium is 7.0. Albumin is 1.7. Pleural fluid back from November 07, is positive for Streptococcus species. Chest x-ray shows improving right-sided opacities. Progress note dated November 18, 2024. 69-year-old female seen today in room 360. The patient is resting comfortably in bed. She is awake and alert. She is on room air. She is getting saline at 50 cc an hour. Cardiothoracic surgery is not planning to place any lytics, through her right sided pigtail catheter today. Currently, the patient is without complaints. Current laboratory data includes a sodium 135, potassium 5.4, chlorides 111, CO2 19, BUN 6, creatinine 0.57. Calcium is 7.4. Pleural fluid cultures were positive for Streptococcus intermedius. Chest x-ray is essentially unchanged. Progress note dated November 19, 2024. 69-year-old female seen today in room 360. She is lying in bed. She will not receive any tPA or alpha dornase today. She is on 2 L. No IV fluids. Clinically, she looks comfortable. She is in no acute distress. She is not coughing or short of breath. Today's labs include a white count of 14.1, hemoglobin 10.8, hematocrit 32.2, and a platelet count of 675,000. Sodium 136, potassium 4.1, chlorides 110, CO2 20, BUN 7, creatinine 0.58. Pleural fluid cultures were positive for Streptococcus intermedius. Chest x-ray reveals a right sided pleural effusion. Right pigtail catheter is unchanged. Some atelectasis is noted at the bases as well. The patient is seen today November 27, 2024 in follow-up on the selective care unit. She has since undergone decortication of the loculated fluid in her right chest on November 24, 2024. Right sided chest tube remains in place. Pleur-evac to wall suction. Still with a positive leak. Chest x-ray reveals slightly increased moderate size right hydropneumothorax with stable right chest tube. Similar right basilar patchy airspace opacities and consolidation concerning for atelectasis and/or infiltrate. Small similar pleural effusion. Follow-up pleural fluid cultures revealed no growth. White count 7.8. Hemoglobin 9.5. Platelets 477. Sodium 132. Potassium 3.5. Bicarb 32. BUN 10. Creatinine 0.57. Glucose 76. She continues to work with the incentive spirometer. She remains on bronchodilators. Antibiotics in the form of ceftriaxone. Heparin for DVT prophylaxis. Remains on IV diuretics. Currently in a -1.2 L balance. patient was seen today on 11/28/2024, patient continues to have right-sided chest tube in place, however needs to be pulled out about 3 cm since its not in the center of the loculated pleural effusion, and this is being done by thoracic surgery. Presently the patient is comfortable, not in distress, remains on antibiotics, and again she continues to have a bit of a trapped lung and loculated pneumothorax. Hoping by adjusting the chest tube, that may help expand the lung at the more. Patient continues to have an air leak. No labs today. Patient is afebrile and hemodynamically stable, on 2 L nasal cannula O2 sat is 95% Seen today on 11/30/2024, patient had bowel pleurodesis done yesterday, continues to have chest tube in place continues to have loculated right-sided p neumothorax, continues to have significant air leak. Patient however seems to be very comfortable and not in distress. Remains on antibiotics for her empyema, her white count responded well 8.19 hemoglobin 9.1 electrolytes are normal potassium is a bit low at 3.2 renal profile is normal Seen today on 12/01/2024, patient is doing well clinically and does not seem to be in distress, however continues to have a significant complicated issue with her persistent right-sided pneumothorax and trapped lung, patient is status post decortication she is also status post talc pleurodesis, continues to have an air leak, continues to be on oxygen, not making a dramatic improvement overall. Patient is now POD #7 Right thoracoscopy with decortication and single level intercostal nerve block. Status post day #2 instillation of talc slurry through the chest tube. Chest x-ray was reviewed today, again she continues to have a pneumothorax and continues to have airleak. CBC is basically normal except for hemoglobin of 8.7 electrolytes are normal BUN is 7 creatinine 0.47 patient was seen today on 12/02/2024, clinically the patient is doing well, asymptomatic, patient is now postoperative day #8 right thoracoscopy with decortication and postoperative day #3 instillation of talc slurry through the chest tube. No major change in the last 24 hours, the loculated pneumothorax may seem to be a bit smaller today, continues to have continuous airleak in spite of talc pleurodesis. Patient is comfortable not in distress. Remains on antibiotics for empyema Seen today on 12/03/2024, not much of the change continues to have airleak continues to have a loculated pneumothorax, as [id number] her chest x-ray which seems to show that her pneumothorax is even larger today. Patient is postoperative day #9 right thoracoscopy with decortication and postoperative day #4 instillation of talc through the chest tube. Clinically patient is comfortable, not in distress. Remains on antibiotics for empyema. Progress note dated 08/06/2024. 69-year-old female who is now been in the hospital for 27 days. I saw her last on November 19, 2024. The patient had a decortication, on November 24. She is currently on 2 L. She does have a leak from the right sided chest tube. Initially, she had a pigtail catheter placed on November 14. She continues on Rocephin and Flagyl. She actually did have a talc pleurodesis, performed by the thoracic surgeon. Clinically, she looks relatively stable. She sitting in a chair next to the hospital bed. No respiratory distress. Laboratory data includes a white count 8.3, hemoglobin 8.8, hematocrit 27.2, and a normal platelet count. Sodium 135, potassium 4, chloride 98, CO2 33, BUN 11, creatinine 0.6. Glucose is 78. Calcium 8.3, magnesium 1.6. Objective - Vital Signs Vital signs: Vital Signs Temp 97.5 F L 12/04/24 15:16 Pulse 65 12/04/24 15:16 Resp 18 12/04/24 15:16 BP 98/61 12/04/24 15:16 Pulse Ox 93 L 12/04/24 15:16 FiO2 21 11/17/24 11:14 Intake & Output 12/03/24 12/04/24 12/04/24 18:59 06:59 18:59 Intake Total 260 20 260 Output Total 0 1310 1110 Balance 260 -1290 -850 Weight 57.7 kg Intake: IV 20 20 20 Invasive Line 5 20 20 20 Oral 240 240 Output: Chest Tube Drainage 0 135 10 Chest Tube Right Upper 0 135 10 Posterior Chest Urine 1175 1100 Other: Voiding Method Toilet Toilet Toilet # Voids 1 1 # Bowel Movements 1 - Exam No acute distress, oriented 3. HEENT examination is grossly unremarkable. Mucous membranes are moist. No oral lesions. Neck supple. Full range of motion. No adenopathy thyromegaly or neck vein dist ention. Cardiovascular examination reveals regular rhythm rate. S1-S2 normal. No S3 or S4. No discernible murmur noted. Lungs reveal diminished right basilar lung sounds. Mild scattered rhonchi. No wheezes or crackles. Right chest tube in place. Abdomen soft bowel sounds are heard. No masses or tenderness. Extremities are intact. No cyanosis clubbing or edema. Skin is without rash or lesion. Neurologic examination is brief but nonfocal. - Labs CBC & Chem 7: 12/04/24 04:08 12/04/24 04:08 Labs: Abnormal Lab Results - Last 24 Hours (Table) 12/04/24 12/04/24 Range/Units 04:08 04:08 RBC 2.87 L (4.10-5.20) 10*6/uL Hgb 8.8 L (12.0-15.0) g/dL Hct 27.2 L (37.2-46.3) % Immature Gran # 0.11 H (0.00-0.04) 10*3/uL Sodium 135 L (137-145) mmol/L Carbon Dioxide 33 H (22-30) mmol/L Calcium 8.3 L (8.4-10.2) mg/dL Assessment and Plan Assessment: Complicated right sided pleural effusion/exudate, fluid positive for Streptococcus intermedius, currently with chest tube in place. S/P decortication, 07/27/2024, with placement of a standard chest tube, and talc pleurodesis. Reinsertion of pigtail catheter, November 14, 2024. Status post right-sided thoracentesis. Acute hypoxemic respiratory failure. Acute leukocytosis, secondary to right pleural space infection. Plan: Plan dated November 14, 2024. The patient continues on antibiotics. The patient had a another pigtail catheter placed today by interventional radiology. Currently, the patient is on Flagyl, and Rocephin. She is not receiving any IV fluids. She is on 2 L nasal cannula. Labs, x-rays, and all medications are reviewed. We will continue to follow. The patient is currently not ready for discharge. Prognosis is guarded. Dictation was produced using Writtenation software. Please excuse any grammatical, word or spelling errors. Plan dated November 15, 2024. The patient is seen today in room 360. She continues on nasal O2 2 L. She is not receiving any additional IV fluids. The patient continues on Rocephin, and Flagyl, for streptococcal infection. The right pigtail catheter is in place. The patient is receiving tPA, and alpha dornase, as per cardiothoracic surgery, to the right pleural space. Labs, x-rays, medications are reviewed. We will continue to follow the patient, and make recommendations where appropriate dictation was produced using [employer] software. Please excuse any grammatical, word or spelling errors. Plan dated November 16, 2024. The patient is again seen today in room 360. She continues on nasal O2 at 2 L. She is getting saline at 10 cc an hour. The right pigtail catheter is noted to be in place. Her chest x-ray is improved. She did receive tPA and alpha dornase, today, administered by cardiothoracic surgery. She continues on Rocephin and Flagyl. All labs, x-rays, and medications are reviewed. We will continue to follow make recommendations were appropriate. Dictation was produced using [employer] software. Please excuse any grammatical, word or spelling errors. Plan dated November 17, 2024. The patient is seen today in room 360. The patient is clinically improved, and radiographically improved. Right pigtail catheter remains in place. The patient remains both on Rocephin and Flagyl. The patient is currently on room air. No additional IV fluids. All labs, x-rays, and medications are reviewed. We will continue to follow the patient, make recommendations were appropriate. Prognosis is guarded. Dictation was produced using [employer] software. Please excuse any grammatical, word or spelling errors. Plan dated November 18, 2024. The patient is seen again in room 360. The patient is currently on room air. She is getting saline at 50 cc an hour. Right pigtail catheter in place. According to cardiothoracic surgery, no plans for installation of lytics, into the right pleural space. The patient was typically getting tPA, and alpha dornase. Labs, x-rays, and all medications are reviewed. The patient continues on Rocephin, and Flagyl. We will continue to follow make recommendations. Prognosis is guarded. Dictation was produced using [employer] software. Please excuse any grammatical, word or spelling errors. Plan dated November 19, 2024. The patient is seen today in room 360. She is laying flat in bed. No distress. She is currently on 2 L nasal cannula. She is not receiving any IV fluids. She was seen by cardiothoracic surgery. They are not planning to give her any more alpha dornase or tPA, through the right sided pigtail catheter. Clinically, the patient is very stable. We will continue to follow. X-rays, labs, and all medications are reviewed. Additional recommendations and suggestions are forthcoming. The patient continues on Rocephin and Flagyl. Prognosis is guarded. Dictation was produced using [employer] software. Please excuse any grammatical, word or spelling errors. Plan dated December 04, 2024. The patient was last seen on November 19, 2024. Since then, the patient has had a decortication performed on November 24, 2024. Pigtail catheter was removed, the patient received a standard chest tube. She also had talc pleurodesis on the right side. Unfortunately, she still has a leak. She is on 2 L nasal cannula. No respiratory distress. She continues on Rocephin and Flagyl. Overall prognosis remains guarded. She is a full code patient. We will continue to follow make recommendations were appropriate. All labs, x-rays, and medications are reviewed. Dictation was produced using [employer] software. Please excuse any grammatical, word or spelling errors. Time with Patient: Less than 30
--- NOTE | 2024-12-05 02:50 | PN ---
PROGRESS NOTE DATE OF SERVICE: 12/04/2024 CHIEF COMPLAINT: Right empyema. HISTORY OF PRESENT ILLNESS: This lady is stable and doing well. The amount of fluid seen in the right chest is slowly diminishing. REVIEW OF SYSTEMS: She has had no fever, chills, etc. PHYSICAL EXAMINATION: GENERAL: She remains slightly pale. She is awake and alert. CHEST: Demonstrates good breath sounds. CARDIAC: Normal. IMPRESSION: Right-sided empyema. PLAN: Continue to follow with Pulmonology and Surgery. Once the pigtail catheter or chest tube was removed, she will be able to probably go to rehab. MMODL / IJN: [id number] /
--- NOTE | 2024-12-05 07:54 | P.PN ---
Subjective Progress Note Date: 12/05/24 Principal diagnosis: Right basilar masslike consolidation, right loculated effusion, leukocytosis, hyponatremia. History of gastric ulcer, raynaud's, distant remote history of smoking POD #11 Right thoracoscopy with decortication and single level intercostal nerve block. Status post day #6 instillation of talc slurry through the chest tube performed by Dr. Laureano. The patient was seen and examined this morning sitting up in the recliner on the cardiac step down unit in no acute distress eating breakfast. Right pleural chest tube present to -20 cm continuous wall suction, continuous air leak present although not quite as vigorous as yesterday. CXR reviewed, lungs still not completely reexpanded dropped again. States pain is controlled with current medication regimen. Remains in sinus rhythm. Remains on 2 L nasal cannula with oxygen saturation in the high 90s, continues to be able to achieve 1000 mL on incentive spirometry. No new concerns, patient remains the same clinically. Objective - Vital Signs Vital signs: Vital Signs Temp 97.8 F 12/04/24 20:45 Pulse 98 12/05/24 03:20 Resp 18 12/05/24 03:20 BP 125/72 12/05/24 03:20 Pulse Ox 98 12/05/24 03:20 FiO2 21 11/17/24 11:14 Intake & Output 12/04/24 12/05/24 12/05/24 18:59 06:59 18:59 Intake Total 260 30 Output Total 1110 1675 Balance -850 -1645 Weight 56.2 kg Intake: IV 20 30 Invasive Line 5 20 30 Oral 240 Output: Chest Tube Drainage 10 50 Chest Tube Right Upper 10 50 Posterior Chest Urine 1100 1625 Other: Voiding Method Toilet Toilet # Voids 1 2 # Bowel Movements 1 - Exam CONSTITUTIONAL: Appears comfortable, cooperative, no acute distress RESPIRATORY: Lungs sounds diminished in the right base. Respirations even, nonlabored. Currently on 2 L nasal cannula with oxygen saturation 98%. Able to achieve 1000 mL on incentive spirometry. Strong cough. CARDIOVASCULAR: S1, S2 present. Regular rate and rhythm. Palpable peripheral pulses bilaterally. Bilateral lower extremity edema present. No calf pain or tenderness noted. SCDs present. GASTROINTESTINAL: Abdomen soft, nontender, nondistended. Active bowel sounds present 4 quadrants. Tolerating diet. Positive bowel movement 12/04 GENITOURINARY: Continues to void INTEGUMENTARY: Skin is warm and dry with evidence of good perfusion NEUROLOGIC: Cranial nerves II through XII intact MUSKULOSKELETAL: Able to move all extremities, strength equal bilaterally PSYCHIATRIC: Alert and oriented to person place and time INVASIVE LINES AND TUBES: Right sided chest tube present to -20 cm continous wall suction, continuous air leak present, 200 ml drainage in the last 24 hours - Allied health notes Allied health notes reviewed: nursing - Labs CBC & Chem 7: 12/04/24 04:08 12/04/24 04:08 - Imaging and Cardiology Chest x-ray: image reviewed Assessment and Plan Assessment: Right basilar masslike consolidation Right loculated effusion, complicated, related to infection, status post right thoracoscopy with decortication Leukocytosis Hyponatremia Chest pain, cough with sputum secondary to above Recent 8 pound weight loss over 6 weeks History of gastric ulcer Raynaud's Distant remote history of smoking Plan: Continue chest tube to -20 cm suction, monitor for air leak resolution Encourage nutrition Antibiotics per infectious disease Encourage incentive spirometry use Increase activity as tolerated Medical management of other comorbidities per internal medicine, pulmonology, infectious disease More recommendations to follow
[2024-12-05 08:19] LABS: HCT 28.1 % (37.2-46.3); HGB 9.1 g/dL (12.0-15.0); MCH 30.8 pg (27.0-32.0); MCHC 32.4 g/dL (32.0-37.0); MCV 95.3 fL (80.0-97.0); Mean Platelet Volume 9.6 fL (9.5-12.2); Platelet Count 534 10*3/uL (140-440); RBC 2.95 10*6/uL (4.10-5.20); RDW 21.9 % (11.5-14.5); WBC 8.18 10*3/uL (4.50-10.00)
[2024-12-05 08:38] LABS: African American GFR (CKD) >90 (>60 ml/min/1.73 sqM); Anion Gap 0 mmol/L; Blood Urea Nitrogen 12 mg/dL (7-17); Carbon Dioxide 31 mmol/L (22-30); Chloride 103 mmol/L (98-107); Glucose 108 mg/dL (74-99); Non-African American GFR(CKD) 90 (>60 ml/min/1.73 sqM); Potassium 4.2 mmol/L (3.5-5.1); Sodium 134 mmol/L (137-145)
--- NOTE | 2024-12-05 10:39 | XR ---
EXAMINATION TYPE: XR chest 1V portable DATE OF EXAM: 12/05/2024 6:47 AM COMPARISON: 12/04/2024 CLINICAL INDICATION: Female, 69 years old with history of trapped lung, pneumothorax TECHNIQUE: XR chest 1V portable view(s) obtained. FINDINGS: The heart size is normal. The pulmonary vasculature is normal. Right lower lobe infiltrate is present. This is improving. The loculated right pneumothorax appears similar or slightly improved from comparison. Right-sided ch est tube remains in position. IMPRESSION: 1. Similar to improving right lower lateral loculated pneumothorax. Chest tube remains in position. 2. Right lower lobe infiltrate [facility], , 12/05/2024 10:37 AM
[2024-12-05 11:26] VITALS: BMI 22.6
--- NOTE | 2024-12-05 13:06 | CDI ---
Date: 12/05/2024 From: Loulou [email or web address] Email: [email or web address] Admit Date: 11/07/2024 12:26:00 AM Patient Name: Lyubov Hanna Visit Number: [id number] Discharge Date: N/A ATTENTION: The Clinical Documentation Specialists (CDI) and [facility] Coding Staff appreciate your assistance in clarifying documentation. Please respond to the clarification below the line at the bottom and electronically sign. The CDI & [facility] Coding staff will review the response and follow-up if needed. Please note: Queries are made part of the Legal Health Record. If you have any questions, please contact the author of this message via ITS. Dr. Kori Menezes, Sepsis is documented in the Infectious Disease Consultation Note on 11/08/2024 but is not consistently noted in previous and/or subsequent documentation. Clarification is requested. History/Risk Factors: 69-year-old female presented to [facility] ED for evaluation due to right upper quadrant abdominal pain. PMH: Former smoker, Raynauds syndrome, osteoporosis, rheumatoid arthritis Clinical indicators: Documentation Location: Electronic Medical Record Clinical Documentation Query Addressed to Dr. Muñoz on 11/22/2024: Please clarify if the sepsis is Miscellaneous Report per Dr. Muñoz (11/23/2024): Unable to determine ED Report (11/06/2024): Diagnosis/Symptom? Lung mass, pneumonia, acute hypoxic respiratory failure, severe sepsis Infectious Disease Progress Note (11/21/2024): Patient presented to hospital with sepsis in this patient who did have tachypnea and tachycardia elevated white count as well as elevated lactic acid meeting criteria for SIRS/sepsis source is right-sided pneumonia with a question of post-obstructive and a possible component of empyema. Likely community-acquired pathogen in this patient with no history of recent antibiotic exposure or flu-like symptoms Pulmonology Progress Note (11/21/2024): Right-sided Streptococcal pneumonia with empyema. The patient continued to have a mass- like consolidation in the right lung base. Malignancy is doubtful at this stage Pulmonology Progress Note (12/04/2024): Acute leukocytosis, secondary to right pleural space infection Vital Sign Trend: Date Time Temperature HR RR BP SpO2 11/06/2024 20:03 98.1 F (Oral) 57 28 88/64 88% on Room Air 11/06/2024 23:19 N/A 107 25 112/53 N/A 11/07/2024 07:51 98.2 F(Oral) 86 18 103/50 95% on 2L NC 11/07/2024 12:20 N/A 84 18 88/53 95% on 2L NC 11/09/2024 00:52 98.5 F(Oral) 113 28 122/61 100% on 3L NC 11/17/2024 08:11 98.1 F(Oral) 96 16 86/57 92% on Room Air 11/21/2024 00:00 98.0 F(Oral) 96 18 94/56 94% on Room Air 11/22/2024 08:00 98.0 F(Oral) 98 16 95/67 98% on 2.5L NC 11/26/2024 23:45 97.5 F(Oral) 98 17 101/61 94% on 3L NC 11/22/2024 08:00 97.3 F(Oral) 80 18 95/61 100% on 2L NC Lab Results: 11/06/2024 11/08/2024 11/09/2024 11/14/2024 11/19/2024 11/20/2024 11/25/2024 12/05/2024 WBC 62.66 26.25 38.60 18.76 14.05 12.53 14.37 8.18 Other Clinical Indicators: Blood Cultures (Collected on 11/06/2024): No growth after 5 days Lactic Acid: (11/06/2024) 2.7 () 1.1 Procalcitonin (11/07/2024): 2.74 CRP (11/14/2024): 3.5 Treatment: Infectious Disease Consultation Rocephin 1g IVPB x 1 Rocephin 2g IVPB Every 24 Hours Flagyl 500mg IVPB Every 8 Hours Flagyl 500mg Oral TID Unasyn 3g IVPB Every 6 Hours (Discontinued) Azithromycin 500mg IVPB x 1 Maxipime 2g IVPB Every 8 Hours (Discontinued) Vancomycin 1000mg IVPB Every 12 Hours (Discontinued) Acetaminophen IVPB x1 on 11/06/2024 0.9% Sodium Chloride IV Infusion @ 130mL/hr. (Discontinued) 0.9% Sodium Chloride IV Bolus x 2 Liters (Total) Thoracentesis with Pigtail Catheter Placement Right Thoracoscopy with Decortication and Single Level Intercostal Nerve Block Please clarify if the sepsis is: [ ] Sepsis has been ruled out [ x ] Sepsis was present on admission [ ] Sepsis was present but was not present on admission [ ] Other condition, please specify [ ] Unable to determine SIRS Criteria (2 or more of the following may indicate SIRS): Temperature < 96.8F (36C) or > 101.0F (38.3C) Heart Rate > 90 bpm Respiratory Rate > 20 breaths/min or PaCO2 < 32 mmHg White Blood Cell Count > 12,000 or < 4,000 cells/mm3 or > 10% bands MTDD
--- NOTE | 2024-12-05 13:37 | P.PN ---
Subjective Progress Note Date: 12/05/24 Principal diagnosis: Sepsis. 69-year-old female presenting the emergency department last night with a chief complaint of right upper quadrant abdominal pain with radiation to the right back. Ongoing for the last 2 days. Workup in the emergency department including abdominal/pelvis CT which does not show any acute intra-abdominal process. Remarkable for right middle lobe cystic lesion and moderate to large right-sided pleural effusion. Follow-up chest CTA did not show any evidence of pulmonary embolism. Right basilar masslike consolidation measuring 5.4 x 5.8 cm, concerning for possible malignancy. Additional surrounding airspace consolidation, possibly superimposed pneumonia. Large right-sided pleural effusion noted. Severe centrilobular emphysematous changes. Labs remarkable for a CBC with a WBC count of 62.7, hemoglobin 13.4, platelets 801. CMP with a sodium 130, potassium 5, chloride 95, serum bicarb 24, BUN 28, creatinine 0.88, glucose 105. Lactate 2.7 down to 1.1. AST 57, ALT 26, ALP 268. Troponins less than 0.012. NT proBNP 467. Lipase 26. Patient currently being evaluated in emergency department. She is resting comfortably on 2 L/min nasal cannula. SpO2 reading 98%. Again endorses above-mentioned right upper quadrant pain with radiation to the right thoracic level back. Previously, rated 9 out of 10 on a 10 point numerical scale. Started approximately 2 days ago. Denies any nausea, vomiting, change in bowel movements, diarrhea. Does endorse previous congested cough without much sputum production. Denies any significant purulent sputum or hemoptysis. Denies any fevers, chills. No previously diagnosed COPD. She is a former tobacco smoker, quit approximately 9 years ago. Prior to this, she smoked 1 pack, which lasted for almost a month. No family or personal history of lung cancer. No significant unintentional weight loss. No recent outpatient treatments for pneumonias. Her primary care provider is Dr. Muñoz. Given empiric doses of azithromycin, Rocephin, Flagyl, and vancomycin in the ED. Afebrile. Normal saline infusing at 130 mL/h. Nontoxic appearance. Hemodynamic stable. The patient is seen today November 08, 2024 in follow-up on the regular medical floor. She is currently sitting up in bed. Awake and alert in no acute distress. Maintaining good O2 saturations in the 90s on 2 L/min per nasal cannula. She did have a right sided pigtail catheter placed yesterday. She als o had a thoracentesis performed yesterday. She continues with hazy yellow output. Her pleural fluid was exudate with a protein of 3.6 and an LDH greater than 2500. Procalcitonin was 2.74. She is currently on Unasyn. Chest x-ray continues to show ongoing moderate to large right pleural effusion with underlying atelectasis and/or consolidation. Minimally decreased compared to previous. Pleural fluid cultures are pending. White count 26.2. Hemoglobin 11.2. Platelets 544. Sodium 134. Potassium 3.7. Bicarb 23. BUN 14. Creatinine 0.52. Viral screen was negative for influenza A/B, RSV, COVID. The patient is seen today November 09, 2024 in follow-up on the regular medical floor. She is awake and alert in no acute distress. She did have some issues with desaturations earlier this morning with minimal activity. Chest x-ray shows worsening left-sided pleural effusion which is now moderate. She is currently maintaining good O2 saturations in the mid 90s on 5 L high flow nasal cannula. She is afebrile. Hemodynamically stable. She did have lytics instilled into the pigtail catheter yesterday. A total of 1420 mL have been returned since. Additional lytics will be instilled today per CT service. She continues to work well with the incentive spirometer. She remains on Unasyn. Pleural fluid cultures pending. Cytology pending. White count 38.6. Hemoglobin 11.5. Platelets 605. Seen today on 11/10/2024, patient is feeling better, breathing easier, chest x- ray is not showing much improvement on the right side pleural effusion. Still undergoing lytic therapy. May have to consider repeat CT of the chest in the next couple of days. Clinically however the patient is doing well, remains on antibiotics, cytology from the pleural effusion came back negative, cultures remain negative, still the differential diagnosis includes malignancy and/or parapneumonic complicated pleural effusion. Patient was seen today on 11/11/2024, patient is doing well, unfortunately angelo fontaine pulled out her pigtail catheter accidentally, and no more lytic therapy could be given for this patient at this point, the chest x-ray is showing improvement, but her initial CT of the chest raised the possibility of malignancy/lung mass, I will go ahead and recommend repeat CT of the chest now for follow-up on the initially abnormal CT of the chest. Clinically I did not believe the patient had lung mass, I felt she had masslike consolidation. And may have resolved based on the fact that the patient has been receiving lytic therapy for her complicated right-sided pleural effusion. The pleural effusion was negative for malignancy. And it was negative for active infection as the cultures have been negative. Patient was seen today on 11/12/2024, patient seems to be comfortable, not in distress, continues to have leukocytosis with WBC count of 24,000, continues to have a right middle lobe cystic lesion, exact etiology is not clear, strongly doubt malignancy I believe is most likely a bulla filled with fluid. Or could represent retained secretions and airway. CT of the chest showed hydropneumothorax, I believe the patient may benefit eventually either from placement of pigtail catheter again or decortication if thoracic surgery is willing. May also require bronchoscopy and biopsy or evaluation of the right middle lobe. At this point in time we are continuing antibiotics, and we need to readdress that pigtail catheter again on Wednesday. Patient was seen today on 11/13/2024, patient is comfortable, not in distress, on nasal cannula patient is supposed to have placement of pigtail catheter again tomorrow for lytic therapy. In the meantime remains on antibiotics, continues to have loculated pleural effusion, and the fluid came back positive for Streptococcus intermedius. Continues to have leukocytosis with WC count of 24.0 hemoglobin 10.3. Patient is on 2 L nasal cannula and O2 sat is 91 to 94% Progress note dated November 14, 2024. 69-year-old female seen today in room 360. She is awake and alert. She is resting comfortably in bed. The patient currently is on Rocephin and Flagyl. She is on 2 L nasal cannula. No IV fluids. The pigtail catheter will be replaced today. She continues to be followed by cardiothoracic surgery. Laboratory data includes a white count of 18.8, hemoglobin 10.6, hematocrit 31.4, and a platelet count of 506,000. Sodium 134, potassium 3.8, chlorides 106, CO2 22, BUN 7, creatinine 0.49. Glucose is 70. Albumin 1.7. Pleural fluid cultures were positive for Streptococcus intermedius. Chest x-ray shows a persistent right basilar opacity/effusion. Progress note dated November 15, 2024. 69-year-old female seen today in room 360. The patient is resting comfortably in bed. She is currently on 2 L. No IV fluids. She has a right pigtail catheter in place. She is receiving both Rocephin and Flagyl, for streptococcal infection. The patient is receiving tPA, and alpha dornase, as per cardiothoracic surgery. Clinically, she is feeling well. She is awake and alert. No respiratory distress. No new laboratory data today. Chest x-ray shows a right basilar pleural catheter. Right sided pleural effusion has diminished. Progress note dated November 16, 2024. 69-year-old female seen today in room 360. She is sitting up in bed. She is alert and awake. No acute distress. She is continues on nasal O2 at 2 L. She is getting saline at 10 cc an hour. Her right pigtail catheter continues to function. She did receive tPA and alpha dornase today, via cardiothoracic surgery. The patient continues on Rocephin and Flagyl. No new laboratory data today. Chest x-ray today, November 16, shows diminished right lower lobe fluid collection. Drainage catheter, is noted. Progress note dated November 17, 2024. 69-year-old female seen again in room 360. She sitting in the chair next to the hospital bed. She is on room air. She continues on Rocephin and Flagyl. The patient did receive tPA, and alpha dornase today, administered by cardiothoracic surgery. Her chest x-ray continues to show improvement. Clinically, she is very stable. She has a right sided pigtail catheter in place. White count of 17.5, hemoglobin 10.5, hematocrit 30.8, platelet count 703,000. Sodium 133, potassium 4.1, chlorides 108, CO2 23, BUN 3, creatinine 0.56. Glucose is 100. Calcium is 7.0. Albumin is 1.7. Pleural fluid back from November 07, is positive for Streptococcus species. Chest x-ray shows improving right-sided opacities. Progress note dated November 18, 2024. 69-year-old female seen today in room 360. The patient is resting comfortably in bed. She is awake and alert. She is on room air. She is getting saline at 50 cc an hour. Cardiothoracic surgery is not planning to place any lytics, through her right sided pigtail catheter today. Currently, the patient is without complaints. Current laboratory data includes a sodium 135, potassium 5.4, chlorides 111, CO2 19, BUN 6, creatinine 0.57. Calcium is 7.4. Pleural fluid cultures were positive for Streptococcus intermedius. Chest x-ray is essentially unchanged. Progress note dated November 19, 2024. 69-year-old female seen today in room 360. She is lying in bed. She will not receive any tPA or alpha dornase today. She is on 2 L. No IV fluids. Clinically, she looks comfortable. She is in no acute distress. She is not coughing or short of breath. Today's labs include a white count of 14.1, hemoglobin 10.8, hematocrit 32.2, and a platelet count of 675,000. Sodium 136, potassium 4.1, chlorides 110, CO2 20, BUN 7, creatinine 0.58. Pleural fluid cultures were positive for Streptococcus intermedius. Chest x-ray reveals a right sided pleural effusion. Right pigtail catheter is unchanged. Some atelectasis is noted at the bases as well. The patient is seen today November 27, 2024 in follow-up on the selective care unit. She has since undergone decortication of the loculated fluid in her right chest on November 24, 2024. Right sided chest tube remains in place. Pleur-evac to wall suction. Still with a positive leak. Chest x-ray reveals slightly increased moderate size right hydropneumothorax with stable right chest tube. Similar right basilar patchy airspace opacities and consolidation concerning for atelectasis and/or infiltrate. Small similar pleural effusion. Follow-up pleural fluid cultures revealed no growth. White count 7.8. Hemoglobin 9.5. Platelets 477. Sodium 132. Potassium 3.5. Bicarb 32. BUN 10. Creatinine 0.57. Glucose 76. She continues to work with the incentive spirometer. She remains on bronchodilators. Antibiotics in the form of ceftriaxone. Heparin for DVT prophylaxis. Remains on IV diuretics. Currently in a -1.2 L balance. patient was seen today on 11/28/2024, patient continues to have right-sided chest tube in place, however needs to be pulled out about 3 cm since its not in the center of the loculated pleural effusion, and this is being done by thoracic surgery. Presently the patient is comfortable, not in distress, remains on antibiotics, and again she continues to have a bit of a trapped lung and loculated pneumothorax. Hoping by adjusting the chest tube, that may help expand the lung at the more. Patient continues to have an air leak. No labs today. Patient is afebrile and hemodynamically stable, on 2 L nasal cannula O2 sat is 95% Seen today on 11/30/2024, patient had bowel pleurodesis done yesterday, continues to have chest tube in place continues to have loculated right-sided p neumothorax, continues to have significant air leak. Patient however seems to be very comfortable and not in distress. Remains on antibiotics for her empyema, her white count responded well 8.19 hemoglobin 9.1 electrolytes are normal potassium is a bit low at 3.2 renal profile is normal Seen today on 12/01/2024, patient is doing well clinically and does not seem to be in distress, however continues to have a significant complicated issue with her persistent right-sided pneumothorax and trapped lung, patient is status post decortication she is also status post talc pleurodesis, continues to have an air leak, continues to be on oxygen, not making a dramatic improvement overall. Patient is now POD #7 Right thoracoscopy with decortication and single level intercostal nerve block. Status post day #2 instillation of talc slurry through the chest tube. Chest x-ray was reviewed today, again she continues to have a pneumothorax and continues to have airleak. CBC is basically normal except for hemoglobin of 8.7 electrolytes are normal BUN is 7 creatinine 0.47 patient was seen today on 12/02/2024, clinically the patient is doing well, asymptomatic, patient is now postoperative day #8 right thoracoscopy with decortication and postoperative day #3 instillation of talc slurry through the chest tube. No major change in the last 24 hours, the loculated pneumothorax may seem to be a bit smaller today, continues to have continuous airleak in spite of talc pleurodesis. Patient is comfortable not in distress. Remains on antibiotics for empyema Seen today on 12/03/2024, not much of the change continues to have airleak continues to have a loculated pneumothorax, as [id number] her chest x-ray which seems to show that her pneumothorax is even larger today. Patient is postoperative day #9 right thoracoscopy with decortication and postoperative day #4 instillation of talc through the chest tube. Clinically patient is comfortable, not in distress. Remains on antibiotics for empyema. Progress note dated 12/04/2024. 69-year-old female who is now been in the hospital for 27 days. I saw her last on November 19, 2024. The patient had a decortication, on November 24. She is currently on 2 L. She does have a leak from the right sided chest tube. Initially, she had a pigtail catheter placed on November 14. She continues on Rocephin and Flagyl. She actually did have a talc pleurodesis, performed by the thoracic surgeon. Clinically, she looks relatively stable. She sitting in a chair next to the hospital bed. No respiratory distress. Laboratory data includes a white count 8.3, hemoglobin 8.8, hematocrit 27.2, and a normal platelet count. Sodium 135, potassium 4, chloride 98, CO2 33, BUN 11, creatinine 0.6. Glucose is 78. Calcium 8.3, magnesium 1.6. Progress note dated December 05, 2024. 69-year-old female seen again in room 360. The patient has not been here in the hospital for 28 days. She continues on 2 L nasal cannula. She is getting saline at 10 cc an hour. She has a right chest tube in place, which has an ongoing leak. Clinically, she is sitting in a chair, next to the hospital bed. She is awake and alert. No respiratory distress or difficulty. Current labs include a white count of 8.2, hemoglobin 9.1, hematocrit 28.1, and platelet count of 534,000. Sodium 134, potassium 4.2, chlorides 103, CO2 31, BUN 12, creatinine 0.65. Glucose is 108. Calcium 8, and magnesium 2.0. Chest x-ray shows similar to improving right lower lobe loculated pneumothorax. There is a right lower lobe infiltrate as well. Objective - Vital Signs Vital signs: Vital Signs Temp 97.3 F L 12/05/24 11:29 Pulse 76 12/05/24 12:35 Resp 18 12/05/24 11:29 BP 95/61 12/05/24 11:29 Pulse Ox 100 12/05/24 11:29 FiO2 21 11/17/24 11:14 Intake & Output 12/04/24 12/05/24 12/05/24 18:59 06:59 18:59 Intake Total 260 30 427 Output Total 1110 1675 700 Balance -692 -1645 -273 Weight 56.2 kg 56.2 kg Intake: IV 20 30 10 Invasive Line 5 20 30 10 Oral 240 417 Output: Chest Tube Drainage 10 50 50 Chest Tube Right Upper 10 50 50 Posterior Chest Urine 1100 1625 650 Other: Voiding Method Toilet Toilet Toilet # Voids 1 2 # Bowel Movements 1 1 - Exam No acute distress, oriented 3. HEENT examination is grossly unremarkable. Mucous membranes are moist. No oral lesions. Neck supple. Full range of motion. No adenopathy thyromegaly or neck vein distention. Cardiovascular examination reveals regular rhythm rate. S1-S2 normal. No S3 or S4. No discernible murmur noted. Lungs reveal diminished right basilar lung sounds. Mild scattered rhonchi. No wheezes or crackles. Right chest tube in place. Abdomen soft bowel sounds are heard. No masses or tenderness. Extremities are intact. No cyanosis clubbing or edema. Skin is without rash or lesion. Neurologic examination is brief but nonfocal. - Labs CBC & Chem 7: 12/05/24 07:54 12/05/24 07:54 Labs: Abnormal Lab Results - Last 24 Hours (Table) 12/05/24 12/05/24 Range/Units 07:54 07:54 RBC 2.95 L (4.10-5.20) 10*6/uL Hgb 9.1 L (12.0-15.0) g/dL Hct 28.1 L (37.2-46.3) % Plt Count 534 H (140-440) 10*3/uL Sodium 134 L (137-145) mmol/L Carbon Dioxide 31 H (22-30) mmol/L Glucose 108 H (74-99) mg/dL Calcium 8.0 L (8.4-10.2) mg/dL Assessment and Plan Assessment: Complicated right sided pleural effusion/exudate, fluid positive for Streptococcus intermedius, currently with chest tube in place. S/P decortication, 07/27/2024, with placement of a standard chest tube, and talc pleurodesis. Reinsertion of pigtail catheter, November 14, 2024. Status post right-sided thoracentesis. Acute hypoxemic respiratory failure. Acute leukocytosis, secondary to right pleural space infection. Plan: Plan dated November 14, 2024. The patient continues on antibiotics. The patient had a another pigtail catheter placed today by interventional radiology. Currently, the patient is on Flagyl, and Rocephin. She is not receiving any IV fluids. She is on 2 L nasal cannula. Labs, x-rays, and all medications are reviewed. We will continue to follow. The patient is currently not ready for discharge. Prognosis is guarded. Dictation was produced using [employer] software. Please excuse any grammatical, word or spelling errors. Plan dated November 15, 2024. The patient is seen today in room 360. She continues on nasal O2 2 L. She is not receiving any additional IV fluids. The patient continues on Rocephin, and Flagyl, for streptococcal infection. The right pigtail catheter is in place. The patient is receiving tPA, and alpha dornase, as per cardiothoracic surgery, to the right pleural space. Labs, x-rays, medications are reviewed. We will continue to follow the patient, and make recommendations where appropriate dictation was produced using [employer] software. Please excuse any grammatical, word or spelling errors. Plan dated November 16, 2024. The patient is again seen today in room 360. She continues on nasal O2 at 2 L. She is getting saline at 10 cc an hour. The right pigtail catheter is noted to be in place. Her chest x-ray is improved. She did receive tPA and alpha dornase, today, administered by cardiothoracic surgery. She continues on Rocephin and Flagyl. All labs, x-rays, and medications are reviewed. We will continue to follow make recommendations were appropriate. Dictation was produced using [employer] software. Please excuse any grammatical, word or spelling errors. Plan dated November 17, 2024. The patient is seen today in room 360. The patient is clinically improved, and radiographically improved. Right pigtail catheter remains in place. The patient remains both on Rocephin and Flagyl. The patient is currently on room air. No additional IV fluids. All labs, x-rays, and medications are reviewed. We will continue to follow the patient, make recommendations were appropriate. Prognosis is guarded. Dictation was produced using [employer] software. Please excuse any grammatical, word or spelling errors. Plan dated November 18, 2024. The patient is seen again in room 360. The patient is currently on room air. She is getting saline at 50 cc an hour. Right pigtail catheter in place. According to cardiothoracic surgery, no plans for installation of lytics, into the right pleural space. The patient was typically getting tPA, and alpha dornase. Labs, x-rays, and all medications are reviewed. The patient continues on Rocephin, and Flagyl. We will continue to follow make recommendations. Prognosis is guarded. Dictation was produced using [employer] software. Please excuse any grammatical, word or spelling errors. Plan dated November 19, 2024. The patient is seen today in room 360. She is laying flat in bed. No distress. She is currently on 2 L nasal cannula. She is not receiving any IV fluids. She was seen by cardiothoracic surgery. They are not planning to give her any more alpha dornase or tPA, through the right sided pigtail catheter. Clinically, the patient is very stable. We will continue to follow. X-rays, labs, and all medications are reviewed. Additional recommendations and suggestions are forthcoming. The patient continues on Rocephin and Flagyl. Prognosis is guarded. Dictation was produced using [employer] software. Please excuse any grammatical, word or spelling errors. Plan dated December 04, 2024. The patient was last seen on November 19, 2024. Since then, the patient has had a decortication performed on November 24, 2024. Pigtail catheter was removed, the patient received a standard chest tube. She also had talc pleurodesis on the ri t side. Unfortunately, she still has a leak. She is on 2 L nasal cannula. No respiratory distress. She continues on Rocephin and Flagyl. Overall prognosis remains guarded. She is a full code patient. We will continue to follow make recommendations were appropriate. All labs, x-rays, and medications are reviewed. Dictation was produced using [employer] software. Please excuse any grammatical, word or spelling errors. Plan dated December 05, 2024. 69-year-old female seen today in room 360. She remains on 2 L of oxygen. She is sitting in a chair next to the bed. No distress. No respiratory distress. The patient still has a right chest tube in place. She still has an ongoing leak, albeit smaller. Chest x-ray, labs, x-rays, and everything else is evaluated. Hopefully the patient will be ready for discharge in the next few days or so. We will continue to follow make recommendations. Prognosis is guarded. She continues on Rocephin, and Flagyl. No other recommendations are made. Dictation was produced using [employer] software. Please excuse any grammatical, word or spelling errors. Time with Patient: Less than 30
--- NOTE | 2024-12-05 16:15 | P.PN ---
Subjective Progress Note Date: 12/04/24 Principal diagnosis: Reason for follow-up is pneumonia/empyema Patient is a 69-year-old female with a past medical history significant for ulcer Raynaud's phenomena and osteoporosis presenting to the hospital for evaluation of right-sided chest pain and cough, patient be diagnosed with right-sided effusion history of empyema and pneumonia prompted this consultation.Patient is status post right thoracoscopy with decortication for right-sided empyema no OR culture procedure completed on 11/24/2024 Patient is status post installation of tunneled cath of the right pleural space for persistent air leak on 11/29/2024 On today's evaluation that is 12/04/2024, patient has been afebrile, patient is breathing comfortably and is currently on 2 L nasal cannula oxygen, patient denies having any chest pain and cough, patient denies nausea vomiting or diarrhea and no abdominal pain Patient did have a white count of 8.28, creatinine 0.60 Objective - Vital Signs Vital signs: Vital Signs Temp 97.8 F 12/04/24 11:26 Pulse 79 12/04/24 13:01 Resp 16 12/04/24 13:01 BP 96/59 12/04/24 11:26 Pulse Ox 97 12/04/24 11:26 FiO2 21 11/17/24 11:14 Intake & Output 12/03/24 12/04/24 12/04/24 18:59 06:59 18:59 Intake Total 260 20 260 Output Total 0 1310 1100 Balance 260 -1290 -840 Weight 57.7 kg Intake: IV 20 20 20 Invasive Line 5 20 20 20 Oral 240 240 Output: Chest Tube Drainage 0 135 Chest Tube Right Upper 0 135 Posterior Chest Urine 1175 1100 Other: Voiding Method Toilet Toilet Toilet # Voids 1 # Bowel Movements 1 - Exam GENERAL DESCRIPTION: An elderly female lying in bed in no distress RESPIRATORY SYSTEM: Unlabored breathing , decreased breath sounds at bases HEART: S1 S2 regular rate and rhythm , ABDOMEN: Soft , no tenderness EXTREMITIES: No edema feet - Labs CBC & Chem 7: 12/05/24 07:54 12/05/24 07:54 Labs: Abnormal Lab Results - Last 24 Hours (Table) 12/04/24 12/04/24 Range/Units 04:08 04:08 RBC 2.87 L (4.10-5.20) 10*6/uL Hgb 8.8 L (12.0-15.0) g/dL Hct 27.2 L (37.2-46.3) % Immature Gran # 0.11 H (0.00-0.04) 10*3/uL Sodium 135 L (137-145) mmol/L Carbon Dioxide 33 H (22-30) mmol/L Calcium 8.3 L (8.4-10.2) mg/dL Assessment and Plan (1) Sepsis Current Visit: Yes Status: Acute Code(s): A41.9 - SEPSIS, UNSPECIFIED ORGANISM SNOMED Code(s): 04559941 (2) Empyema lung Current Visit: Yes Status: Acute Code(s): J86.9 - PYOTHORAX WITHOUT FISTULA SNOMED Code(s): 65942104 (3) Pneumonia Current Visit: Yes Status: Acute Code(s): J18.9 - PNEUMONIA, UNSPECIFIED ORGANISM SNOMED Code(s): 558164206 Plan: 1patient presented to hospital with sepsis in this patient who did have tachypnea and tachycardia elevated white count as well as elevated lactic acid meeting criteria for SIRS/sepsis source is right-sided pneumonia with a question of postobstructive and a possible component of empyema likely community-acquired pathogen in this patient with no history of recent antibiotic exposure or flulike symptoms 2-patient pleural fluid culture currently growing Streptococcus intermedius micro lab unable to do sensitivity as reported organism not growing 3patient did have repeat CT of the chest on 11/20/2024 concerning for persistent effusion and consolidation, the patient status post right-sided thoracoscopy and decortication completed on 11/24/2024 no OR culture 4patient is afebrile and white count has normalized, to continue with IV Rocephin and oral Flagyl while inpatient Dictation was produced using [employer] dictation software. please excuse any grammatical, word or spelling errors. Time with Patient: Less than 30
--- NOTE | 2024-12-05 16:16 | P.PN ---
Subjective Progress Note Date: 12/05/24 Principal diagnosis: Reason for follow-up is pneumonia/empyema Patient is a 69-year-old female with a past medical history significant for ulcer Raynaud's phenomena and osteoporosis presenting to the hospital for evaluation of right-sided chest pain and cough, patient be diagnosed with right-sided effusion history of empyema and pneumonia prompted this consultation.Patient is status post right thoracoscopy with decortication for right-sided empyema no OR culture procedure completed on 11/24/2024 Patient is status post installation of tunneled cath of the right pleural space for persistent air leak on 11/29/2024 On today's evaluation that is 12/05/2024, Patient is afebrile this morning patient denies having any worsening chest pain shortness of breath or cough, the patient is currently on room air, patient denies any abdominal pain no diarrhea no nausea no vomiting. Patient white count is up to 25.52, creatinine 0.33 blood and urine has been negative chest x-ray multifocal airspace opacities Objective - Vital Signs Vital signs: Vital Signs Temp 97.9 F 12/05/24 15:25 Pulse 85 12/05/24 15:25 Resp 18 12/05/24 15:25 BP 96/54 12/05/24 15:25 Pulse Ox 96 12/05/24 15:25 FiO2 21 11/17/24 11:14 Intake & Output 12/04/24 12/05/24 12/05/24 18:59 06:59 18:59 Intake Total 260 30 637 Output Total 1110 1675 900 Balance -335 -5661 -924 Weight 56.2 kg 56.2 kg Intake: IV 20 30 20 Invasive Line 5 20 30 20 Oral 240 617 Output: Chest Tube Drainage 10 50 50 Chest Tube Right Upper 10 50 50 Posterior Chest Urine 1100 1625 850 Other: Voiding Method Toilet Toilet Toilet # Voids 1 2 # Bowel Movements 1 1 - Exam GENERAL DESCRIPTION: An elderly female lying in bed in no distress RESPIRATORY SYSTEM: Unlabored breathing , decreased breath sounds at bases HEART: S1 S2 regular rate and rhythm , ABDOMEN: Soft , no tenderness EXTREMITIES: No edema feet - Labs CBC & Chem 7: 12/05/24 07:54 12/05/24 07:54 Labs: Abnormal Lab Results - Last 24 Hours (Table) 12/05/24 12/05/24 Range/Units 07:54 07:54 RBC 2.95 L (4.10-5.20) 10*6/uL Hgb 9.1 L (12.0-15.0) g/dL Hct 28.1 L (37.2-46.3) % Plt Count 534 H (140-440) 10*3/uL Sodium 134 L (137-145) mmol/L Carbon Dioxide 31 H (22-30) mmol/L Glucose 108 H (74-99) mg/dL Calcium 8.0 L (8.4-10.2) mg/dL Assessment and Plan (1) Sepsis Current Visit: Yes Status: Acute Code(s): A41.9 - SEPSIS, UNSPECIFIED ORGANISM SNOMED Code(s): 74617128 (2) Empyema lung Current Visit: Yes Status: Acute Code(s): J86.9 - PYOTHORAX WITHOUT FISTULA SNOMED Code(s): 79958963 (3) Pneumonia Current Visit: Yes Status: Acute Code(s): J18.9 - PNEUMONIA, UNSPECIFIED ORGANISM SNOMED Code(s): 744459506 Plan: 1patient presented to hospital with sepsis in this patient who did have tachypnea and tachycardia elevated white count as well as elevated lactic acid meeting criteria for SIRS/sepsis source is right-sided pneumonia with a question of postobstructive and a possible component of empyema likely community-acquired pathogen in this patient with no history of recent antibiotic exposure or flulike symptoms 2-patient pleural fluid culture currently growing Streptococcus intermedius micro lab unable to do sensitivity as reported organism not growing 3patient did have repeat CT of the chest on 11/20/2024 concerning for persistent effusion and consolidation, the patient status post right-sided thoracoscopy and decortication completed on 11/24/2024 no OR culture 4patient is afebrile and white count has normalized, still have issues with the collapsed lung as per discussion with [employer] for CT surgery will be reevaluated by the CT surgeon who did the initial thoracotomy for now to continue with IV Roce phin and oral Flagyl and monitor clinical course closely Dictation was produced using [email or web address] dictation software. please excuse any grammatical, word or spelling errors. Time with Patient: Less than 30
--- NOTE | 2024-12-05 22:56 | PN ---
PROGRESS NOTE DATE OF SERVICE: 12/05/2024 CHIEF COMPLAINT: Right empyema. HISTORY OF PRESENT ILLNESS: This lady is stable and has been no interval change. She denies any chest pain, shortness of breath, or fever. Chest tube still in place. PHYSICAL EXAMINATION: CHEST: Breath sounds are heard on both sides. CARDIAC: Normal. IMPRESSION: 1. Right-sided empyema with possible abscess in the right lower lobe. 2. Leukocytosis - coming down. PLAN: No change in her program at this time. MMODL / IJN: [id number] /
--- NOTE | 2024-12-06 07:44 | XR ---
EXAMINATION TYPE: XR chest 1V portable DATE OF EXAM: 12/06/2024 6:45 AM COMPARISON: 12/05/2024 CLINICAL INDICATION: Female, 69 years old with history of Trapped lung, pneumothorax post lobectomy TECHNIQUE: XR chest 1V portable view(s) obtained. FINDINGS: The heart size is normal. The pulmonary vasculature is normal. Loculated right pneumothorax remains present. Chest tube stable in position. Right lower lobe infiltr ate appears stable. IMPRESSION: 1. Stable examination. 2. Persistent right pneumothorax with right-sided chest tube present [facility], , 12/06/2024 7:42 AM
--- NOTE | 2024-12-06 09:03 | P.PN ---
Subjective Progress Note Date: 12/06/24 Principal diagnosis: Right basilar masslike consolidation, right loculated effusion, leukocytosis, hyponatremia. History of gastric ulcer, raynaud's, distant remote history of smoking POD #12 Right thoracoscopy with decortication and single level intercostal nerve block. Status post day #7 instillation of talc slurry through the chest tube performed by Dr. Laureano. The patient was seen and examined this morning sitting up in bed on the cardiac step down unit in no acute distress eating breakfast. Right pleural chest tube present to -20 cm continuous wall suction, continuous air leak present. CXR reviewed, lungs still not completely reexpanded. States pain is controlled with current medication regimen. Remains in sinus rhythm. Remains on 1 L nasal cannula with oxygen saturation in the high 90s, continues to be able to achieve 1000 mL on incentive spirometry. No new concerns, patient remains the same clinically. Objective - Vital Signs Vital signs: Vital Signs Temp 98.1 F 12/06/24 04:00 Pulse 76 12/06/24 08:44 Resp 16 12/06/24 04:00 BP 106/65 12/06/24 04:00 Pulse Ox 98 12/06/24 08:44 FiO2 21 11/17/24 11:14 Intake & Output 12/05/24 12/06/24 12/06/24 18:59 06:59 18:59 Intake Total 817 20 120 Output Total 950 560 0 Balance -133 -540 120 Weight 56.2 kg 55.5 kg Intake: IV 20 20 Invasive Line 5 20 20 Oral 797 120 Output: Chest Tube Drainage 50 60 0 Chest Tube Right Upper 50 60 0 Posterior Chest Drainage 50 Right Lateral Chest 50 Urine 850 500 Other: Voiding Method Toilet Toilet # Voids 1 # Bowel Movements 1 - Exam CONSTITUTIONAL: Appears comfortable, cooperative, no acute distress RESPIRATORY: Lungs sounds diminished in the right base. Respirations even, nonlabored. Currently on 1 L nasal cannula with oxygen saturation 97%. Able to achieve 1000 mL on incentive spirometry. Strong cough. CARDIOVASCULAR: S1, S2 present. Regular rate and rhythm. Palpable peripheral pulses bilaterally. Bilateral lower extremity edema present. No calf pain or tenderness noted. SCDs present. GASTROINTESTINAL: Abdomen soft, nontender, nondistended. Active bowel sounds present 4 quadrants. Tolerating diet. Positive bowel movement 12/05 GENITOURINARY: Continues to void INTEGUMENTARY: Skin is warm and dry with evidence of good perfusion NEUROLOGIC: Cranial nerves II through XII intact MUSKULOSKELETAL: Able to move all extremities, strength equal bilaterally PSYCHIATRIC: Alert and oriented to person place and time INVASIVE LINES AND TUBES: Right sided chest tube present to -20 cm continous wall suction, continuous air leak present, 100 ml drainage in the last 24 hours - Allied health notes Allied health notes reviewed: nursing - Labs CBC & Chem 7: 12/05/24 07:54 12/05/24 07:54 - Imaging and Cardiology Chest x-ray: report reviewed, image reviewed Assessment and Plan Assessment: Right basilar masslike consolidation Right loculated effusion, complicated, related to infection, status post right thoracoscopy with decortication Leukocytosis Hyponatremia Chest pain, cough with sputum secondary to above Recent 8 pound weight loss over 6 weeks History of gastric ulcer Raynaud's Distant remote history of smoking Plan: Continue chest tube to -20 cm suction, monitor for air leak resolution Our plan is for re-operation, right VATS with repair of leak on Wednesday12/08/[address] Neal Encourage nutrition Antibiotics per infectious disease Encourage incentive spirometry use Increase activity as tolerated Medical management of other comorbidities per internal medicine, pulmonology, infectious disease More recommendations to follow
--- NOTE | 2024-12-06 14:28 | P.PN ---
Subjective Progress Note Date: 12/06/24 Principal diagnosis: Sepsis. 69-year-old female presenting the emergency department last night with a chief complaint of right upper quadrant abdominal pain with radiation to the right back. Ongoing for the last 2 days. Workup in the emergency department including abdominal/pelvis CT which does not show any acute intra-abdominal process. Remarkable for right middle lobe cystic lesion and moderate to large right-sided pleural effusion. Follow-up chest CTA did not show any evidence of pulmonary embolism. Right basilar masslike consolidation measuring 5.4 x 5.8 cm, concerning for possible malignancy. Additional surrounding airspace consolidation, possibly superimposed pneumonia. Large right-sided pleural effusion noted. Severe centrilobular emphysematous changes. Labs remarkable for a CBC with a WBC count of 62.7, hemoglobin 13.4, platelets 801. CMP with a sodium 130, potassium 5, chloride 95, serum bicarb 24, BUN 28, creatinine 0.88, glucose 105. Lactate 2.7 down to 1.1. AST 57, ALT 26, ALP 268. Troponins less than 0.012. NT proBNP 467. Lipase 26. Patient currently being evaluated in emergency department. She is resting comfortably on 2 L/min nasal cannula. SpO2 reading 98%. Again endorses above-mentioned right upper quadrant pain with radiation to the right thoracic level back. Previously, rated 9 out of 10 on a 10 point numerical scale. Started approximately 2 days ago. Denies any nausea, vomiting, change in bowel movements, diarrhea. Does endorse previous congested cough without much sputum production. Denies any significant purulent sputum or hemoptysis. Denies any fevers, chills. No previously diagnosed COPD. She is a former tobacco smoker, quit approximately 9 years ago. Prior to this, she smoked 1 pack, which lasted for almost a month. No family or personal history of lung cancer. No significant unintentional weight loss. No recent outpatient treatments for pneumonias. Her primary care provider is Dr. Muñoz. Given empiric doses of azithromycin, Rocephin, Flagyl, and vancomycin in the ED. Afebrile. Normal saline infusing at 130 mL/h. Nontoxic appearance. Hemodynamic stable. The patient is seen today November 08, 2024 in follow-up on the regular medical floor. She is currently sitting up in bed. Awake and alert in no acute distress. Maintaining good O2 saturations in the 90s on 2 L/min per nasal cannula. She did have a right sided pigtail catheter placed yesterday. She als o had a thoracentesis performed yesterday. She continues with hazy yellow output. Her pleural fluid was exudate with a protein of 3.6 and an LDH greater than 2500. Procalcitonin was 2.74. She is currently on Unasyn. Chest x-ray continues to show ongoing moderate to large right pleural effusion with underlying atelectasis and/or consolidation. Minimally decreased compared to previous. Pleural fluid cultures are pending. White count 26.2. Hemoglobin 11.2. Platelets 544. Sodium 134. Potassium 3.7. Bicarb 23. BUN 14. Creatinine 0.52. Viral screen was negative for influenza A/B, RSV, COVID. The patient is seen today November 09, 2024 in follow-up on the regular medical floor. She is awake and alert in no acute distress. She did have some issues with desaturations earlier this morning with minimal activity. Chest x-ray shows worsening left-sided pleural effusion which is now moderate. She is currently maintaining good O2 saturations in the mid 90s on 5 L high flow nasal cannula. She is afebrile. Hemodynamically stable. She did have lytics instilled into the pigtail catheter yesterday. A total of 1420 mL have been returned since. Additional lytics will be instilled today per CT service. She continues to work well with the incentive spirometer. She remains on Unasyn. Pleural fluid cultures pending. Cytology pending. White count 38.6. Hemoglobin 11.5. Platelets 605. Seen today on 11/10/2024, patient is feeling better, breathing easier, chest x- ray is not showing much improvement on the right side pleural effusion. Still undergoing lytic therapy. May have to consider repeat CT of the chest in the next couple of days. Clinically however the patient is doing well, remains on antibiotics, cytology from the pleural effusion came back negative, cultures remain negative, still the differential diagnosis includes malignancy and/or parapneumonic complicated pleural effusion. Patient was seen today on 11/11/2024, patient is doing well, unfortunately angelo fontaine pulled out her pigtail catheter accidentally, and no more lytic therapy could be given for this patient at this point, the chest x-ray is showing improvement, but her initial CT of the chest raised the possibility of malignancy/lung mass, I will go ahead and recommend repeat CT of the chest now for follow-up on the initially abnormal CT of the chest. Clinically I did not believe the patient had lung mass, I felt she had masslike consolidation. And may have resolved based on the fact that the patient has been receiving lytic therapy for her complicated right-sided pleural effusion. The pleural effusion was negative for malignancy. And it was negative for active infection as the cultures have been negative. Patient was seen today on 11/12/2024, patient seems to be comfortable, not in distress, continues to have leukocytosis with WBC count of 24,000, continues to have a right middle lobe cystic lesion, exact etiology is not clear, strongly doubt malignancy I believe is most likely a bulla filled with fluid. Or could represent retained secretions and airway. CT of the chest showed hydropneumothorax, I believe the patient may benefit eventually either from placement of pigtail catheter again or decortication if thoracic surgery is willing. May also require bronchoscopy and biopsy or evaluation of the right middle lobe. At this point in time we are continuing antibiotics, and we need to readdress that pigtail catheter again on Wednesday. Patient was seen today on 11/13/2024, patient is comfortable, not in distress, on nasal cannula patient is supposed to have placement of pigtail catheter again tomorrow for lytic therapy. In the meantime remains on antibiotics, continues to have loculated pleural effusion, and the fluid came back positive for Streptococcus intermedius. Continues to have leukocytosis with WC count of 24.0 hemoglobin 10.3. Patient is on 2 L nasal cannula and O2 sat is 91 to 94% Progress note dated November 14, 2024. 69-year-old female seen today in room 360. She is awake and alert. She is resting comfortably in bed. The patient currently is on Rocephin and Flagyl. She is on 2 L nasal cannula. No IV fluids. The pigtail catheter will be replaced today. She continues to be followed by cardiothoracic surgery. Laboratory data includes a white count of 18.8, hemoglobin 10.6, hematocrit 31.4, and a platelet count of 506,000. Sodium 134, potassium 3.8, chlorides 106, CO2 22, BUN 7, creatinine 0.49. Glucose is 70. Albumin 1.7. Pleural fluid cultures were positive for Streptococcus intermedius. Chest x-ray shows a persistent right basilar opacity/effusion. Progress note dated November 15, 2024. 69-year-old female seen today in room 360. The patient is resting comfortably in bed. She is currently on 2 L. No IV fluids. She has a right pigtail catheter in place. She is receiving both Rocephin and Flagyl, for streptococcal infection. The patient is receiving tPA, and alpha dornase, as per cardiothoracic surgery. Clinically, she is feeling well. She is awake and alert. No respiratory distress. No new laboratory data today. Chest x-ray shows a right basilar pleural catheter. Right sided pleural effusion has diminished. Progress note dated November 16, 2024. 69-year-old female seen today in room 360. She is sitting up in bed. She is alert and awake. No acute distress. She is continues on nasal O2 at 2 L. She is getting saline at 10 cc an hour. Her right pigtail catheter continues to function. She did receive tPA and alpha dornase today, via cardiothoracic surgery. The patient continues on Rocephin and Flagyl. No new laboratory data today. Chest x-ray today, November 16, shows diminished right lower lobe fluid collection. Drainage catheter, is noted. Progress note dated November 17, 2024. 69-year-old female seen again in room 360. She sitting in the chair next to the hospital bed. She is on room air. She continues on Rocephin and Flagyl. The patient did receive tPA, and alpha dornase today, administered by cardiothoracic surgery. Her chest x-ray continues to show improvement. Clinically, she is very stable. She has a right sided pigtail catheter in place. White count of 17.5, hemoglobin 10.5, hematocrit 30.8, platelet count 703,000. Sodium 133, potassium 4.1, chlorides 108, CO2 23, BUN 3, creatinine 0.56. Glucose is 100. Calcium is 7.0. Albumin is 1.7. Pleural fluid back from November 07, is positive for Streptococcus species. Chest x-ray shows improving right-sided opacities. Progress note dated November 18, 2024. 69-year-old female seen today in room 360. The patient is resting comfortably in bed. She is awake and alert. She is on room air. She is getting saline at 50 cc an hour. Cardiothoracic surgery is not planning to place any lytics, through her right sided pigtail catheter today. Currently, the patient is without complaints. Current laboratory data includes a sodium 135, potassium 5.4, chlorides 111, CO2 19, BUN 6, creatinine 0.57. Calcium is 7.4. Pleural fluid cultures were positive for Streptococcus intermedius. Chest x-ray is essentially unchanged. Progress note dated November 19, 2024. 69-year-old female seen today in room 360. She is lying in bed. She will not receive any tPA or alpha dornase today. She is on 2 L. No IV fluids. Clinically, she looks comfortable. She is in no acute distress. She is not coughing or short of breath. Today's labs include a white count of 14.1, hemoglobin 10.8, hematocrit 32.2, and a platelet count of 675,000. Sodium 136, potassium 4.1, chlorides 110, CO2 20, BUN 7, creatinine 0.58. Pleural fluid cultures were positive for Streptococcus intermedius. Chest x-ray reveals a right sided pleural effusion. Right pigtail catheter is unchanged. Some atelectasis is noted at the bases as well. The patient is seen today November 27, 2024 in follow-up on the selective care unit. She has since undergone decortication of the loculated fluid in her right chest on November 24, 2024. Right sided chest tube remains in place. Pleur-evac to wall suction. Still with a positive leak. Chest x-ray reveals slightly increased moderate size right hydropneumothorax with stable right chest tube. Similar right basilar patchy airspace opacities and consolidation concerning for atelectasis and/or infiltrate. Small similar pleural effusion. Follow-up pleural fluid cultures revealed no growth. White count 7.8. Hemoglobin 9.5. Platelets 477. Sodium 132. Potassium 3.5. Bicarb 32. BUN 10. Creatinine 0.57. Glucose 76. She continues to work with the incentive spirometer. She remains on bronchodilators. Antibiotics in the form of ceftriaxone. Heparin for DVT prophylaxis. Remains on IV diuretics. Currently in a -1.2 L balance. patient was seen today on 11/28/2024, patient continues to have right-sided chest tube in place, however needs to be pulled out about 3 cm since its not in the center of the loculated pleural effusion, and this is being done by thoracic surgery. Presently the patient is comfortable, not in distress, remains on antibiotics, and again she continues to have a bit of a trapped lung and loculated pneumothorax. Hoping by adjusting the chest tube, that may help expand the lung at the more. Patient continues to have an air leak. No labs today. Patient is afebrile and hemodynamically stable, on 2 L nasal cannula O2 sat is 95% Seen today on 11/30/2024, patient had bowel pleurodesis done yesterday, continues to have chest tube in place continues to have loculated right-sided p neumothorax, continues to have significant air leak. Patient however seems to be very comfortable and not in distress. Remains on antibiotics for her empyema, her white count responded well 8.19 hemoglobin 9.1 electrolytes are normal potassium is a bit low at 3.2 renal profile is normal Seen today on 12/01/2024, patient is doing well clinically and does not seem to be in distress, however continues to have a significant complicated issue with her persistent right-sided pneumothorax and trapped lung, patient is status post decortication she is also status post talc pleurodesis, continues to have an air leak, continues to be on oxygen, not making a dramatic improvement overall. Patient is now POD #7 Right thoracoscopy with decortication and single level intercostal nerve block. Status post day #2 instillation of talc slurry through the chest tube. Chest x-ray was reviewed today, again she continues to have a pneumothorax and continues to have airleak. CBC is basically normal except for hemoglobin of 8.7 electrolytes are normal BUN is 7 creatinine 0.47 patient was seen today on 12/02/2024, clinically the patient is doing well, asymptomatic, patient is now postoperative day #8 right thoracoscopy with decortication and postoperative day #3 instillation of talc slurry through the chest tube. No major change in the last 24 hours, the loculated pneumothorax may seem to be a bit smaller today, continues to have continuous airleak in spite of talc pleurodesis. Patient is comfortable not in distress. Remains on antibiotics for empyema Seen today on 12/03/2024, not much of the change continues to have airleak continues to have a loculated pneumothorax, as [id number] her chest x-ray which seems to show that her pneumothorax is even larger today. Patient is postoperative day #9 right thoracoscopy with decortication and postoperative day #4 instillation of talc through the chest tube. Clinically patient is comfortable, not in distress. Remains on antibiotics for empyema. Progress note dated 12/04/2024. 69-year-old female who is now been in the hospital for 27 days. I saw her last on November 19, 2024. The patient had a decortication, on November 24. She is currently on 2 L. She does have a leak from the right sided chest tube. Initially, she had a pigtail catheter placed on November 14. She continues on Rocephin and Flagyl. She actually did have a talc pleurodesis, performed by the thoracic surgeon. Clinically, she looks relatively stable. She sitting in a chair next to the hospital bed. No respiratory distress. Laboratory data includes a white count 8.3, hemoglobin 8.8, hematocrit 27.2, and a normal platelet count. Sodium 135, potassium 4, chloride 98, CO2 33, BUN 11, creatinine 0.6. Glucose is 78. Calcium 8.3, magnesium 1.6. Progress note dated December 05, 2024. 69-year-old female seen again in room 360. The patient has not been here in the hospital for 28 days. She continues on 2 L nasal cannula. She is getting saline at 10 cc an hour. She has a right chest tube in place, which has an ongoing leak. Clinically, she is sitting in a chair, next to the hospital bed. She is awake and alert. No respiratory distress or difficulty. Current labs include a white count of 8.2, hemoglobin 9.1, hematocrit 28.1, and platelet count of 534,000. Sodium 134, potassium 4.2, chlorides 103, CO2 31, BUN 12, creatinine 0.65. Glucose is 108. Calcium 8, and magnesium 2.0. Chest x-ray shows similar to improving right lower lobe loculated pneumothorax. There is a right lower lobe infiltrate as well. Progress note dated December 06, 2024. 69-year-old female seen today in room 360. The patient has not been in the hospital for 29 days. She is a right sided chest tube in place. She is on room air. She is not receiving any IV fluids. The chest tube on the right, has a persistent air leak. The patient is feeling well, sitting in a chair next to the hospital bed. She denies any shortness of breath. She is awake and alert. No chest pain or chest discomfort. No new labs today. Objective - Vital Signs Vital signs: Vital Signs Temp 97.7 F 12/06/24 12:00 Pulse 76 12/06/24 12:25 Resp 16 12/06/24 12:00 BP 93/57 12/06/24 12:00 Pulse Ox 99 12/06/24 12:00 FiO2 21 11/17/24 11:14 Intake & Output 12/05/24 12/06/24 12/06/24 18:59 06:59 18:59 Intake Total 817 20 260 Output Total 950 560 450 Balance -133 -540 -190 Weight 56.2 kg 55.5 kg Intake: IV 20 20 20 Invasive Line 5 20 20 20 Oral 797 240 Output: Chest Tube Drainage 50 60 50 Chest Tube Right Upper 50 60 50 Posterior Chest Drainage 50 Right Lateral Chest 50 Urine 850 500 400 Other: Voiding Method Toilet Toilet Toilet # Voids 1 # Bowel Movements 1 1 - Exam No acute distress, oriented 3. HEENT examination is grossly unremarkable. Mucous membranes are moist. No oral lesions. Neck supple. Full range of motion. No adenopathy thyromegaly or neck vein distention. Cardiovascular examination reveals regular rhythm rate. S1-S2 normal. No S3 or S4. No discernible murmur noted. Lungs reveal diminished right basilar lung sounds. Mild scattered rhonchi. No wheezes or crackles. Right chest tube in place. Abdomen soft bowel sounds are heard. No masses or tenderness. Extremities are intact. No cyanosis clubbing or edema. Skin is without rash or lesion. Neurologic examination is brief but nonfocal. - Labs CBC & Chem 7: 12/05/24 07:54 12/05/24 07:54 Assessment and Plan Assessment: Complicated right sided pleural effusion/exudate, fluid positive for Streptococcus intermedius, currently with chest tube in place. S/P decortication, 07/27/2024, with placement of a standard chest tube, and talc pleurodesis. Reinsertion of pigtail catheter, November 14, 2024. Status post right-sided thoracentesis. Acute hypoxemic respiratory failure. Acute leukocytosis, secondary to right pleural space infection. Plan: Plan dated November 14, 2024. The patient continues on antibiotics. The patient had a another pigtail catheter placed today by interventional radiology. Currently, the patient is on Flagyl, and Rocephin. She is not receiving any IV fluids. She is on 2 L nasal cannula. Labs, x-rays, and all medications are reviewed. We will continue to follow. The patient is currently not ready for discharge. Prognosis is guarded. Dictation was produced using [employer] software. Please excuse any grammatical, word or spelling errors. Plan dated November 15, 2024. The patient is seen today in room 360. She continues on nasal O2 2 L. She is not receiving any additional IV fluids. The patient continues on Rocephin, and Flagyl, for streptococcal infection. The right pigtail catheter is in place. The patient is receiving tPA, and alpha dornase, as per cardiothoracic surgery, to the right pleural space. Labs, x-rays, medications are reviewed. We will continue to follow the patient, and make recommendations where appropriate dictation was produced using [employer] software. Please excuse any grammatical, word or spelling errors. Plan dated November 16, 2024. The patient is again seen today in room 360. She continues on nasal O2 at 2 L. She is getting saline at 10 cc an hour. The right pigtail catheter is noted to be in place. Her chest x-ray is improved. She did receive tPA and alpha dornase, today, administered by cardiothoracic surgery. She continues on Rocephin and Flagyl. All labs, x-rays, and medications are reviewed. We will continue to follow make recommendations were appropriate. Dictation was produced using [employer] software. Please excuse any grammatical, word or spelling errors. Plan dated November 17, 2024. The patient is seen today in room 360. The patient is clinically improved, and radiographically improved. Right pigtail catheter remains in place. The patient remains both on Rocephin and Flagyl. The patient is currently on room air. No additional IV fluids. All labs, x-rays, and medications are reviewed. We will continue to follow the patient, make recommendations were appropriate. Prognosis is guarded. Dictation was produced using [employer] dictation software. Please excuse any grammatical, word or spelling errors. Plan dated November 18, 2024. The patient is seen again in room 360. The patient is currently on room air. She is getting saline at 50 cc an hour. Right pigtail catheter in place. A ccording to cardiothoracic surgery, no plans for installation of lytics, into the right pleural space. The patient was typically getting tPA, and alpha dornase. Labs, x-rays, and all medications are reviewed. The patient continues on Rocephin, and Flagyl. We will continue to follow make recommendations. Prognosis is guarded. Dictation was produced using [employer] software. Please excuse any grammatical, word or spelling errors. Plan dated November 19, 2024. The patient is seen today in room 360. She is laying flat in bed. No distress. She is currently on 2 L nasal cannula. She is not receiving any IV fluids. She was seen by cardiothoracic surgery. They are not planning to give her any more alpha dornase or tPA, through the right sided pigtail catheter. Clinically, the patient is very stable. We will continue to follow. X-rays, labs, and all medications are reviewed. Additional recommendations and suggestions are forthcoming. The patient continues on Rocephin and Flagyl. Prognosis is guarded. Dictation was produced using [employer] software. Please excuse any grammatical, word or spelling errors. Plan dated December 04, 2024. The patient was last seen on November 19, 2024. Since then, the patient has had a decortication performed on November 24, 2024. Pigtail catheter was removed, the patient received a standard chest tube. She also had talc pleurodesis on the right side. Unfortunately, she still has a leak. She is on 2 L nasal cannula. No respiratory distress. She continues on Rocephin and Flagyl. Overall prognosis remains guarded. She is a full code patient. We will continue to follow make recommendations were appropriate. All labs, x-rays, and medications are reviewed. Dictation was produced using [employer] software. Please excuse any grammatical, word or spelling errors. Plan dated December 05, 2024. 69-year-old female seen today in room 360. She remains on 2 L of oxygen. She is sitting in a chair next to the bed. No distress. No respiratory distress. The patient still has a right chest tube in place. She still has an ongoing leak, albeit smaller. Chest x-ray, labs, x-rays, and everything else is evaluated. Hopefully the patient will be ready for discharge in the next few days or so. We will continue to follow make recommendations. Prognosis is guarded. She continues on Rocephin, and Flagyl. No other recommendations are made. Dictation was produced using [employer] software. Please excuse any grammatical, word or spelling errors. Plan dated December 06, 2024. The patient is seen today in room 360. The patient has been weaned off of oxygen. She is sitting in the chair next to the hospital bed. He is not receiving any IV fluids. The patient has a right chest tube in place. The chest tube shows a persistent continuous airleak. Labs, x-rays, and medications are reviewed. We will continue to follow the patient, make recommendations. Overall prognosis remains guarded. Dictation was produced using [employer] software. Please excuse any grammatical, word or spelling errors. Time with Patient: Less than 30
--- NOTE | 2024-12-06 22:57 | P.PN ---
Subjective Progress Note Date: 12/06/24 Principal diagnosis: Reason for follow-up is pneumonia/empyema Patient is a 69-year-old female with a past medical history significant for ulcer Raynaud's phenomena and osteoporosis presenting to the hospital for evaluation of right-sided chest pain and cough, patient be diagnosed with right-sided effusion history of empyema and pneumonia prompted this consultation.Patient is status post right thoracoscopy with decortication for right-sided empyema no OR culture procedure completed on 11/24/2024 Patient is status post installation of tunneled cath of the right pleural space for persistent air leak on 11/29/2024 On today's evaluation that is 12/06/2024,the patient denies any fever or any chills, patient is breathing comfortably on room air, the patient denies chest pain shortness of breath and no significant cough, patient denies abdominal pain, no nausea vomiting or diarrhea. Patient did not have a lab draw today Objective - Vital Signs Vital signs: Vital Signs Temp 97.7 F 12/06/24 15:54 Pulse 92 12/06/24 15:54 Resp 16 12/06/24 15:54 BP 91/57 12/06/24 15:54 Pulse Ox 92 L 12/06/24 15:54 FiO2 21 11/17/24 11:14 Intake & Output 12/05/24 12/06/24 12/06/24 18:59 06:59 18:59 Intake Total 817 20 260 Output Total 950 560 490 Balance -133 -540 -230 Weight 56.2 kg 55.5 kg Intake: IV 20 20 20 Invasive Line 5 20 20 20 Oral 797 240 Output: Chest Tube Drainage 50 60 90 Chest Tube Right Upper 50 60 90 Posterior Chest Drainage 50 Right Lateral Chest 50 Urine 850 500 400 Other: Voiding Method Toilet Toilet Toilet # Voids 1 # Bowel Movements 1 1 - Exam GENERAL DESCRIPTION: An elderly female lying in bed in no distress RESPIRATORY SYSTEM: Unlabored breathing , decreased breath sounds at bases HEART: S1 S2 regular rate and rhythm , ABDOMEN: Soft , no tenderness EXTREMITIES: No edema feet - Labs CBC & Chem 7: 12/05/24 07:54 12/05/24 07:54 Assessment and Plan (1) Sepsis Current Visit: Yes Status: Acute Code(s): A41.9 - SEPSIS, UNSPECIFIED ORGANISM SNOMED Code(s): 93817885 (2) Empyema lung Current Visit: Yes Status: Acute Code(s): J86.9 - PYOTHORAX WITHOUT FISTULA SNOMED Code(s): 59474783 (3) Pneumonia Current Visit: Yes Status: Acute Code(s): J18.9 - PNEUMONIA, UNSPECIFIED ORGANISM SNOMED Code(s): 758892281 Plan: 1patient presented to hospital with sepsis in this patient who did have tachypnea and tachycardia elevated white count as well as elevated lactic acid meeting criteria for SIRS/sepsis source is right-sided pneumonia with a question of postobstructive and a possible component of empyema likely community-acquired pathogen in this patient with no history of recent antibiotic exposure or flulike symptoms 2-patient pleural fluid culture currently growing Streptococcus intermedius micro lab unable to do sensitivity as reported organism not growing 3patient did have repeat CT of the chest on 11/20/2024 concerning for persistent effusion and consolidation, the patient status post right-sided thoracoscopy and decortication completed on 11/24/2024 no OR culture 4patient is afebrile and white count has normalized, still have issues with the collapsed lung as per discussion with DIRECTOR OF PERSONNEL for CT surgery will be reevaluated by the CT surgeon who did the initial thoracotomy on Wednesday 5patient to continue with IV Rocephin and oral Flagyl and monitor clinical c ourse closely Dictation was produced using [employer]1 dictation software. please excuse any grammatical, word or spelling errors. Time with Patient: Less than 30
--- NOTE | 2024-12-07 04:30 | PN ---
PROGRESS NOTE CHIEF COMPLAINT: Right-sided empyema. HISTORY OF PRESENT ILLNESS: This lady is doing about the same. Tubes are slowly being advanced. PHYSICAL EXAMINATION: GENERAL: She is awake and alert. She remains pale. CHEST: Breath sounds are heard bilaterally. CARDIAC: Unremarkable. IMPRESSION: Right-sided empyema. PLAN: The catheter is slowly being removed from the chest and her lung is remaining expanded. Once the tube is out, she will be able to either go home or go to rehab. MMODL / IJN: [id number] /
[2024-12-07 07:07] LABS: HCT 28.5 % (37.2-46.3); MCH 30.4 pg (27.0-32.0); MCHC 31.6 g/dL (32.0-37.0); MCV 96.3 fL (80.0-97.0); Mean Platelet Volume 11.3 fL (9.5-12.2); Platelet Count 334 10*3/uL (140-440); RBC 2.96 10*6/uL (4.10-5.20); RDW 22.5 % (11.5-14.5); WBC 6.32 10*3/uL (4.50-10.00)
[2024-12-07 07:17] LABS: African American GFR (CKD) >90 (>60 ml/min/1.73 sqM); Anion Gap 1 mmol/L; Blood Urea Nitrogen 12 mg/dL (7-17); Calcium 7.8 mg/dL (8.4-10.2); Carbon Dioxide 31 mmol/L (22-30); Chloride 102 mmol/L (98-107); Glucose 84 mg/dL (74-99); Non-African American GFR(CKD) >90 (>60 ml/min/1.73 sqM); Potassium 4.2 mmol/L (3.5-5.1); Sodium 134 mmol/L (137-145)
--- NOTE | 2024-12-07 07:28 | XR ---
EXAMINATION TYPE: XR chest 1V portable DATE OF EXAM: 12/07/2024 6:50 AM COMPARISON: None. CLINICAL INDICATION: Female, 69 years old with history of effusion, pneumothorax TECHNIQUE: XR chest 1V portable view(s) obtained. FINDINGS: The heart size is normal. The pulmonary vasculature is normal. Patient's loculated right pneumothorax appears similar to comparison. Some mild hydropneumothorax is present. Right lower lobe infiltrate remains present. Right-sided chest tube may be slightly pulled back from the previous exam. IMPRESSION: 1. Similar hydropneumothorax right chest. 2. Chest tube is slightly pulled back from prior exam. [facility], , 12/07/2024 7:26 AM
--- NOTE | 2024-12-07 07:44 | P.PN ---
Subjective Progress Note Date: 12/07/24 Principal diagnosis: Right basilar masslike consolidation, right loculated effusion, leukocytosis, hyponatremia. History of gastric ulcer, raynaud's, distant remote history of smoking POD #13 Right thoracoscopy with decortication and single level intercostal nerve block. Status post day #8 instillation of talc slurry through the chest tube performed by Dr. Laureano. The patient was seen and examined this morning sitting up in the recliner on the cardiac step down unit in no acute distress. Right pleural chest tube present to -20 cm continuous wall suction, continuous air leak present. CXR reviewed, lungs still not completely reexpanded. States pain is controlled with current medication regimen. Remains in sinus rhythm. Currently on room air with oxygen saturation in the low 90s, able to achieve 750 mL on incentive spirometry. No new concerns, patient remains the same clinically. Objective - Vital Signs Vital signs: Vital Signs Temp 97.9 F 12/06/24 19:49 Pulse 96 12/07/24 04:00 Resp 18 12/07/24 04:00 BP 108/65 12/07/24 04:00 Pulse Ox 92 L 12/07/24 04:00 FiO2 21 11/17/24 11:14 Intake & Output 12/06/24 12/07/24 12/07/24 18:59 06:59 18:59 Intake Total 380 20 Output Total 490 910 Balance -110 -890 Weight 55 kg Intake: IV 20 20 Invasive Line 5 20 20 Oral 360 Output: Chest Tube Drainage 90 10 Chest Tube Right Upper 90 10 Posterior Chest Urine 400 900 Other: Voiding Method Toilet Toilet # Voids 1 # Bowel Movements 1 - Exam CONSTITUTIONAL: Appears comfortable, cooperative, no acute distress RESPIRATORY: Lungs sounds diminished in the right base. Respirations even, nonlabored. Currently on 1 L nasal cannula with oxygen saturation 97%. Able to achieve 1000 mL on incentive spirometry. Strong cough. CARDIOVASCULAR: S1, S2 present. Regular rate and rhythm. Palpable peripheral pulses bilaterally. Bilateral lower extremity edema present. No calf pain or tenderness noted. SCDs present. GASTROINTESTINAL: Abdomen soft, nontender, nondistended. Active bowel sounds present 4 quadrants. Tolerating diet. Positive bowel movement 12/06 GENITOURINARY: Continues to void INTEGUMENTARY: Skin is warm and dry with evidence of good perfusion NEUROLOGIC: Cranial nerves II through XII intact MUSKULOSKELETAL: Able to move all extremities, strength equal bilaterally PSYCHIATRIC: Alert and oriented to person place and time INVASIVE LINES AND TUBES: Right sided chest tube present to -20 cm continous wall suction, continuous air leak present, 100 ml drainage in the last 24 hours - Allied health notes Allied health notes reviewed: nursing - Labs CBC & Chem 7: 12/07/24 06:07 12/07/24 06:07 Labs: Abnormal Lab Results - Last 24 Hours (Table) 12/07/24 12/07/24 Range/Units 06:07 06:07 RBC 2.96 L (4.10-5.20) 10*6/uL Hgb 9.0 L (12.0-15.0) g/dL Hct 28.5 L (37.2-46.3) % MCHC 31.6 L (32.0-37.0) g/dL Sodium 134 L (137-145) mmol/L Carbon Dioxide 31 H (22-30) mmol/L Calcium 7.8 L (8.4-10.2) mg/dL - Imaging and Cardiology Chest x-ray: image reviewed Assessment and Plan Assessment: Right basilar masslike consolidation Right loculated effusion, complicated, related to infection, status post right thoracoscopy with decortication Leukocytosis Hyponatremia Chest pain, cough with sputum secondary to above Recent 8 pound weight loss over 6 weeks History of gastric ulcer Raynaud's Distant remote history of smoking Plan: Continue chest tube to -20 cm suction, monitor for air leak resolution Our plan is for re-operation, right VATS with repair of leak on Wednesday12/08/[address] Neal Encourage nutrition Antibiotics per infectious disease Encourage incentive spirometry use Increase activity as tolerated Medical management of other comorbidities per internal medicine, pulmonology, infectious disease More recommendations to follow
--- NOTE | 2024-12-07 13:44 | P.PN ---
Subjective Progress Note Date: 12/07/24 Principal diagnosis: Sepsis. 69-year-old female presenting the emergency department last night with a chief complaint of right upper quadrant abdominal pain with radiation to the right back. Ongoing for the last 2 days. Workup in the emergency department including abdominal/pelvis CT which does not show any acute intra-abdominal process. Remarkable for right middle lobe cystic lesion and moderate to large right-sided pleural effusion. Follow-up chest CTA did not show any evidence of pulmonary embolism. Right basilar masslike consolidation measuring 5.4 x 5.8 cm, concerning for possible malignancy. Additional surrounding airspace consolidation, possibly superimposed pneumonia. Large right-sided pleural effusion noted. Severe centrilobular emphysematous changes. Labs remarkable for a CBC with a WBC count of 62.7, hemoglobin 13.4, platelets 801. CMP with a sodium 130, potassium 5, chloride 95, serum bicarb 24, BUN 28, creatinine 0.88, glucose 105. Lactate 2.7 down to 1.1. AST 57, ALT 26, ALP 268. Troponins less than 0.012. NT proBNP 467. Lipase 26. Patient currently being evaluated in emergency department. She is resting comfortably on 2 L/min nasal cannula. SpO2 reading 98%. Again endorses above-mentioned right upper quadrant pain with radiation to the right thoracic level back. Previously, rated 9 out of 10 on a 10 point numerical scale. Started approximately 2 days ago. Denies any nausea, vomiting, change in bowel movements, diarrhea. Does endorse previous congested cough without much sputum production. Denies any significant purulent sputum or hemoptysis. Denies any fevers, chills. No previously diagnosed COPD. She is a former tobacco smoker, quit approximately 9 years ago. Prior to this, she smoked 1 pack, which lasted for almost a month. No family or personal history of lung cancer. No significant unintentional weight loss. No recent outpatient treatments for pneumonias. Her primary care provider is Dr. Muñoz. Given empiric doses of azithromycin, Rocephin, Flagyl, and vancomycin in the ED. Afebrile. Normal saline infusing at 130 mL/h. Nontoxic appearance. Hemodynamic stable. The patient is seen today November 08, 2024 in follow-up on the regular medical floor. She is currently sitting up in bed. Awake and alert in no acute distress. Maintaining good O2 saturations in the 90s on 2 L/min per nasal cannula. She did have a right sided pigtail catheter placed yesterday. She als o had a thoracentesis performed yesterday. She continues with hazy yellow output. Her pleural fluid was exudate with a protein of 3.6 and an LDH greater than 2500. Procalcitonin was 2.74. She is currently on Unasyn. Chest x-ray continues to show ongoing moderate to large right pleural effusion with underlying atelectasis and/or consolidation. Minimally decreased compared to previous. Pleural fluid cultures are pending. White count 26.2. Hemoglobin 11.2. Platelets 544. Sodium 134. Potassium 3.7. Bicarb 23. BUN 14. Creatinine 0.52. Viral screen was negative for influenza A/B, RSV, COVID. The patient is seen today November 09, 2024 in follow-up on the regular medical floor. She is awake and alert in no acute distress. She did have some issues with desaturations earlier this morning with minimal activity. Chest x-ray shows worsening left-sided pleural effusion which is now moderate. She is currently maintaining good O2 saturations in the mid 90s on 5 L high flow nasal cannula. She is afebrile. Hemodynamically stable. She did have lytics instilled into the pigtail catheter yesterday. A total of 1420 mL have been returned since. Additional lytics will be instilled today per CT service. She continues to work well with the incentive spirometer. She remains on Unasyn. Pleural fluid cultures pending. Cytology pending. White count 38.6. Hemoglobin 11.5. Platelets 605. Seen today on 11/10/2024, patient is feeling better, breathing easier, chest x- ray is not showing much improvement on the right side pleural effusion. Still undergoing lytic therapy. May have to consider repeat CT of the chest in the next couple of days. Clinically however the patient is doing well, remains on antibiotics, cytology from the pleural effusion came back negative, cultures remain negative, still the differential diagnosis includes malignancy and/or parapneumonic complicated pleural effusion. Patient was seen today on 11/11/2024, patient is doing well, unfortunately angelo fontaine pulled out her pigtail catheter accidentally, and no more lytic therapy could be given for this patient at this point, the chest x-ray is showing improvement, but her initial CT of the chest raised the possibility of malignancy/lung mass, I will go ahead and recommend repeat CT of the chest now for follow-up on the initially abnormal CT of the chest. Clinically I did not believe the patient had lung mass, I felt she had masslike consolidation. And may have resolved based on the fact that the patient has been receiving lytic therapy for her complicated right-sided pleural effusion. The pleural effusion was negative for malignancy. And it was negative for active infection as the cultures have been negative. Patient was seen today on 11/12/2024, patient seems to be comfortable, not in distress, continues to have leukocytosis with WBC count of 24,000, continues to have a right middle lobe cystic lesion, exact etiology is not clear, strongly doubt malignancy I believe is most likely a bulla filled with fluid. Or could represent retained secretions and airway. CT of the chest showed hydropneumothorax, I believe the patient may benefit eventually either from placement of pigtail catheter again or decortication if thoracic surgery is willing. May also require bronchoscopy and biopsy or evaluation of the right middle lobe. At this point in time we are continuing antibiotics, and we need to readdress that pigtail catheter again on Wednesday. Patient was seen today on 11/13/2024, patient is comfortable, not in distress, on nasal cannula patient is supposed to have placement of pigtail catheter again tomorrow for lytic therapy. In the meantime remains on antibiotics, continues to have loculated pleural effusion, and the fluid came back positive for Streptococcus intermedius. Continues to have leukocytosis with WC count of 24.0 hemoglobin 10.3. Patient is on 2 L nasal cannula and O2 sat is 91 to 94% Progress note dated November 14, 2024. 69-year-old female seen today in room 360. She is awake and alert. She is resting comfortably in bed. The patient currently is on Rocephin and Flagyl. She is on 2 L nasal cannula. No IV fluids. The pigtail catheter will be replaced today. She continues to be followed by cardiothoracic surgery. Laboratory data includes a white count of 18.8, hemoglobin 10.6, hematocrit 31.4, and a platelet count of 506,000. Sodium 134, potassium 3.8, chlorides 106, CO2 22, BUN 7, creatinine 0.49. Glucose is 70. Albumin 1.7. Pleural fluid cultures were positive for Streptococcus intermedius. Chest x-ray shows a persistent right basilar opacity/effusion. Progress note dated November 15, 2024. 69-year-old female seen today in room 360. The patient is resting comfortably in bed. She is currently on 2 L. No IV fluids. She has a right pigtail catheter in place. She is receiving both Rocephin and Flagyl, for streptococcal infection. The patient is receiving tPA, and alpha dornase, as per cardiothoracic surgery. Clinically, she is feeling well. She is awake and alert. No respiratory distress. No new laboratory data today. Chest x-ray shows a right basilar pleural catheter. Right sided pleural effusion has diminished. Progress note dated November 16, 2024. 69-year-old female seen today in room 360. She is sitting up in bed. She is alert and awake. No acute distress. She is continues on nasal O2 at 2 L. She is getting saline at 10 cc an hour. Her right pigtail catheter continues to function. She did receive tPA and alpha dornase today, via cardiothoracic surgery. The patient continues on Rocephin and Flagyl. No new laboratory data today. Chest x-ray today, November 16, shows diminished right lower lobe fluid collection. Drainage catheter, is noted. Progress note dated November 17, 2024. 69-year-old female seen again in room 360. She sitting in the chair next to the hospital bed. She is on room air. She continues on Rocephin and Flagyl. The patient did receive tPA, and alpha dornase today, administered by cardiothoracic surgery. Her chest x-ray continues to show improvement. Clinically, she is very stable. She has a right sided pigtail catheter in place. White count of 17.5, hemoglobin 10.5, hematocrit 30.8, platelet count 703,000. Sodium 133, potassium 4.1, chlorides 108, CO2 23, BUN 3, creatinine 0.56. Glucose is 100. Calcium is 7.0. Albumin is 1.7. Pleural fluid back from November 07, is positive for Streptococcus species. Chest x-ray shows improving right-sided opacities. Progress note dated November 18, 2024. 69-year-old female seen today in room 360. The patient is resting comfortably in bed. She is awake and alert. She is on room air. She is getting saline at 50 cc an hour. Cardiothoracic surgery is not planning to place any lytics, through her right sided pigtail catheter today. Currently, the patient is without complaints. Current laboratory data includes a sodium 135, potassium 5.4, chlorides 111, CO2 19, BUN 6, creatinine 0.57. Calcium is 7.4. Pleural fluid cultures were positive for Streptococcus intermedius. Chest x-ray is essentially unchanged. Progress note dated November 19, 2024. 69-year-old female seen today in room 360. She is lying in bed. She will not receive any tPA or alpha dornase today. She is on 2 L. No IV fluids. Clinically, she looks comfortable. She is in no acute distress. She is not coughing or short of breath. Today's labs include a white count of 14.1, hemoglobin 10.8, hematocrit 32.2, and a platelet count of 675,000. Sodium 136, potassium 4.1, chlorides 110, CO2 20, BUN 7, creatinine 0.58. Pleural fluid cultures were positive for Streptococcus intermedius. Chest x-ray reveals a right sided pleural effusion. Right pigtail catheter is unchanged. Some atelectasis is noted at the bases as well. The patient is seen today November 27, 2024 in follow-up on the selective care unit. She has since undergone decortication of the loculated fluid in her right chest on November 24, 2024. Right sided chest tube remains in place. Pleur-evac to wall suction. Still with a positive leak. Chest x-ray reveals slightly increased moderate size right hydropneumothorax with stable right chest tube. Similar right basilar patchy airspace opacities and consolidation concerning for atelectasis and/or infiltrate. Small similar pleural effusion. Follow-up pleural fluid cultures revealed no growth. White count 7.8. Hemoglobin 9.5. Platelets 477. Sodium 132. Potassium 3.5. Bicarb 32. BUN 10. Creatinine 0.57. Glucose 76. She continues to work with the incentive spirometer. She remains on bronchodilators. Antibiotics in the form of ceftriaxone. Heparin for DVT prophylaxis. Remains on IV diuretics. Currently in a -1.2 L balance. patient was seen today on 11/28/2024, patient continues to have right-sided chest tube in place, however needs to be pulled out about 3 cm since its not in the center of the loculated pleural effusion, and this is being done by thoracic surgery. Presently the patient is comfortable, not in distress, remains on antibiotics, and again she continues to have a bit of a trapped lung and loculated pneumothorax. Hoping by adjusting the chest tube, that may help expand the lung at the more. Patient continues to have an air leak. No labs today. Patient is afebrile and hemodynamically stable, on 2 L nasal cannula O2 sat is 95% Seen today on 11/30/2024, patient had bowel pleurodesis done yesterday, continues to have chest tube in place continues to have loculated right-sided p neumothorax, continues to have significant air leak. Patient however seems to be very comfortable and not in distress. Remains on antibiotics for her empyema, her white count responded well 8.19 hemoglobin 9.1 electrolytes are normal potassium is a bit low at 3.2 renal profile is normal Seen today on 12/01/2024, patient is doing well clinically and does not seem to be in distress, however continues to have a significant complicated issue with her persistent right-sided pneumothorax and trapped lung, patient is status post decortication she is also status post talc pleurodesis, continues to have an air leak, continues to be on oxygen, not making a dramatic improvement overall. Patient is now POD #7 Right thoracoscopy with decortication and single level intercostal nerve block. Status post day #2 instillation of talc slurry through the chest tube. Chest x-ray was reviewed today, again she continues to have a pneumothorax and continues to have airleak. CBC is basically normal except for hemoglobin of 8.7 electrolytes are normal BUN is 7 creatinine 0.47 patient was seen today on 12/02/2024, clinically the patient is doing well, asymptomatic, patient is now postoperative day #8 right thoracoscopy with decortication and postoperative day #3 instillation of talc slurry through the chest tube. No major change in the last 24 hours, the loculated pneumothorax may seem to be a bit smaller today, continues to have continuous airleak in spite of talc pleurodesis. Patient is comfortable not in distress. Remains on antibiotics for empyema Seen today on 12/03/2024, not much of the change continues to have airleak continues to have a loculated pneumothorax, as [id number] her chest x-ray which seems to show that her pneumothorax is even larger today. Patient is postoperative day #9 right thoracoscopy with decortication and postoperative day #4 instillation of talc through the chest tube. Clinically patient is comfortable, not in distress. Remains on antibiotics for empyema. Progress note dated 12/04/2024. 69-year-old female who is now been in the hospital for 27 days. I saw her last on November 19, 2024. The patient had a decortication, on November 24. She is currently on 2 L. She does have a leak from the right sided chest tube. Initially, she had a pigtail catheter placed on November 14. She continues on Rocephin and Flagyl. She actually did have a talc pleurodesis, performed by the thoracic surgeon. Clinically, she looks relatively stable. She sitting in a chair next to the hospital bed. No respiratory distress. Laboratory data includes a white count 8.3, hemoglobin 8.8, hematocrit 27.2, and a normal platelet count. Sodium 135, potassium 4, chloride 98, CO2 33, BUN 11, creatinine 0.6. Glucose is 78. Calcium 8.3, magnesium 1.6. Progress note dated December 05, 2024. 69-year-old female seen again in room 360. The patient has not been here in the hospital for 28 days. She continues on 2 L nasal cannula. She is getting saline at 10 cc an hour. She has a right chest tube in place, which has an ongoing leak. Clinically, she is sitting in a chair, next to the hospital bed. She is awake and alert. No respiratory distress or difficulty. Current labs include a white count of 8.2, hemoglobin 9.1, hematocrit 28.1, and platelet count of 534,000. Sodium 134, potassium 4.2, chlorides 103, CO2 31, BUN 12, creatinine 0.65. Glucose is 108. Calcium 8, and magnesium 2.0. Chest x-ray shows similar to improving right lower lobe loculated pneumothorax. There is a right lower lobe infiltrate as well. Progress note dated December 06, 2024. 69-year-old female seen today in room 360. The patient has not been in the hospital for 29 days. She is a right sided chest tube in place. She is on room air. She is not receiving any IV fluids. The chest tube on the right, has a persistent air leak. The patient is feeling well, sitting in a chair next to the hospital bed. She denies any shortness of breath. She is awake and alert. No chest pain or chest discomfort. No new labs today. Progress note dated December 07, 2024. 69-year-old female again seen today in room 360. Currently she is on room air. She is sitting in the chair next to the hospital bed. She is not receiving any IV fluids. Right chest tube is still in place. She has an ongoing leak. Clinically, she looks very stable. She is not complaining of shortness of breath, or difficulty breathing. Labs include a white count of 6.3, hemoglobin 9, hematocrit 28.5, and a platelet count of 334,000. Sodium 134, potassium 4.2, chlorides 102, CO2 31, BUN 12, creatinine 0.58. Glucose is 84. Calcium is 7.8. Chest x-ray dated December 07, shows hydropneumothorax on the right, but otherwise, the chest x-ray is largely unchanged. Objective - Vital Signs Vital signs: Vital Signs Temp 97.9 F 12/07/24 11:48 Pulse 92 12/07/24 12:09 Resp 16 12/07/24 11:48 BP 105/68 12/07/24 11:48 Pulse Ox 97 12/07/24 11:48 FiO2 21 12/07/24 08:44 Intake & Output 12/06/24 12/07/24 12/07/24 18:59 06:59 18:59 Intake Total 380 20 10 Output Total 490 910 440 Balance -110 -890 -430 Weight 55 kg Intake: IV 20 20 10 Invasive Line 5 20 20 10 Oral 360 Output: Chest Tube Drainage 90 10 40 Chest Tube Right Upper 90 10 40 Posterior Chest Urine 400 900 400 Other: Voiding Method Toilet Toilet Toilet # Voids 1 # Bowel Movements 1 1 - Exam No acute distress, oriented 3. Currently on room air. HEENT examination is grossly unremarkable. Mucous membranes are moist. No oral lesions. Neck supple. Full range of motion. No adenopathy thyromegaly or neck vein distention. Cardiovascular examination reveals regular rhythm rate. S1-S2 normal. No S3 or S4. No discernible murmur noted. Lungs reveal diminished right basilar lung sounds. Mild scattered rhonchi. No wheezes or crackles. Right chest tube in place. Abdomen soft bowel sounds are heard. No masses or tenderness. Extremities are intact. No cyanosis clubbing or edema. Skin is without rash or lesion. Neurologic examination is brief but nonfocal. - Labs CBC & Chem 7: 12/07/24 06:07 12/07/24 06:07 Labs: Abnormal Lab Results - Last 24 Hours (Table) 12/07/24 12/07/24 12/07/24 Range/Units 06:07 06:07 10:02 RBC 2.96 L (4.10-5.20) 10*6/uL Hgb 9.0 L (12.0-15.0) g/dL Hct 28.5 L (37.2-46.3) % MCHC 31.6 L (32.0-37.0) g/dL Sodium 134 L (137-145) mmol/L Carbon Dioxide 31 H (22-30) mmol/L Calcium 7.8 L (8.4-10.2) mg/dL Blood Bank Comment Sent to [facility] A Assessment and Plan Assessment: Complicated right sided pleural effusion/exudate, fluid positive for Streptococcus intermedius, currently with chest tube in place. S/P decortication, 07/27/2024, with placement of a standard chest tube, and talc pleurodesis. Reinsertion of pigtail catheter, November 14, 2024. Status post right-sided thoracentesis. Acute hypoxemic respiratory failure. Acute leukocytosis, secondary to right pleural space infection. Plan: Plan dated November 14, 2024. The patient continues on antibiotics. The patient had a another pigtail catheter placed today by interventional radiology. Currently, the patient is on Flagyl, and Rocephin. She is not receiving any IV fluids. She is on 2 L nasal cannula. Labs, x-rays, and all medications are reviewed. We will continue to follow. The patient is currently not ready for discharge. Prognosis is guarded. Dictation was produced using [employer] dictation software. Please excuse any grammatical, word or spelling errors. Plan dated November 15, 2024. The patient is seen today in room 360. She continues on nasal O2 2 L. She is not receiving any additional IV fluids. The patient continues on Rocephin, and Flagyl, for streptococcal infection. The right pigtail catheter is in place. The patient is receiving tPA, and alpha dornase, as per cardiothoracic surgery, to the right pleural space. Labs, x-rays, medications are reviewed. We will continue to follow the patient, and make recommendations where appropriate dictation was produced using [employer] software. Please excuse any grammatical, word or spelling errors. Plan dated November 16, 2024. The patient is again seen today in room 360. She continues on nasal O2 at 2 L. She is getting saline at 10 cc an hour. The right pigtail catheter is noted to be in place. Her chest x-ray is improved. She did receive tPA and alpha dornase, today, administered by cardiothoracic surgery. She continues on Rocephin and Flagyl. All labs, x-rays, and medications are reviewed. We will continue to follow make recommendations were appropriate. Dictation was produced using [employer] software. Please excuse any grammatical, word or spelling errors. Plan dated November 17, 2024. The patient is seen today in room 360. The patient is clinically improved, and radiographically improved. Right pigtail catheter remains in place. The patient remains both on Rocephin and Flagyl. The patient is currently on room air. No additional IV fluids. All labs, x-rays, and medications are reviewed. We will continue to follow the patient, make recommendations were appropriate. Prognosis is guarded. Dictation was produced using [employer] software. Please excuse any grammatical, word or spelling errors. Plan dated November 18, 2024. The patient is seen again in room 360. The patient is currently on room air. She is getting saline at 50 cc an hour. Right pigtail catheter in place. According to cardiothoracic surgery, no plans for installation of lytics, into the right pleural space. The patient was typically getting tPA, and alpha dornase. Labs, x-rays, and all medications are reviewed. The patient continues on Rocephin, and Flagyl. We will continue to follow make recommendations. Prognosis is guarded. Dictation was produced using [employer] software. Please excuse any grammatical, word or spelling errors. Plan dated November 19, 2024. The patient is seen today in room 360. She is laying flat in bed. No distress. She is currently on 2 L nasal cannula. She is not receiving any IV fluids. She was seen by cardiothoracic surgery. They are not planning to give her any more alpha dornase or tPA, through the right sided pigtail catheter. Clinically, the patient is very stable. We will continue to follow. X-rays, labs, and all medications are reviewed. Additional recommendations and suggestions are forthcoming. The patient continues on Rocephin and Flagyl. Prognosis is guarded. Dictation was produced using [employer] software. Please excuse any grammatical, word or spelling errors. Plan dated December 04, 2024. The patient was last seen on November 19, 2024. Since then, the patient has had a decortication performed on November 24, 2024. Pigtail catheter was removed, the patient received a standard chest tube. She also had talc pleurodesis on the right side. Unfortunately, she still has a leak. She is on 2 L nasal cannula. No respiratory distress. She continues on Rocephin and Flagyl. Overall prognosis remains guarded. She is a full code patient. We will continue to follow make recommendations were appropriate. All labs, x-rays, and medications are reviewed. Dictation was produced using [employer] software. Please excuse any grammatical, word or spelling errors. Plan dated December 05, 2024. 69-year-old female seen today in room 360. She remains on 2 L of oxygen. She is sitting in a chair next to the bed. No distress. No respiratory distress. The patient still has a right chest tube in place. She still has an ongoing leak, albeit smaller. Chest x-ray, labs, x-rays, and everything else is evaluated. Hopefully the patient will be ready for discharge in the next few days or so. We will continue to follow make recommendations. Prognosis is guarded. She continues on Rocephin, and Flagyl. No other recommendations are made. Dictation was produced using [employer] software. Please excuse any grammatical, word or spelling errors. Plan dated December 06, 2024. The patient is seen today in room 360. The patient has been weaned off of oxygen. She is sitting in the chair next to the hospital bed. He is not receiving any IV fluids. The patient has a right chest tube in place. The chest tube shows a persistent continuous airleak. Labs, x-rays, and medications are reviewed. We will continue to follow the patient, make recommendations. Overall prognosis remains guarded. Dictation was produced using [employer] software. Please excuse any grammatical, word or spelling errors. Plan dated December 07, 2024. The patient is seen today in room 360. Clinically, the patient is doing well. She is sitting in a chair next to the hospital bed. She is not requiring any supplemental oxygen. She is not receiving any IV fluids. The right chest tube is still in place, and does have a ongoing/continuous leak. Labs, x-rays, and medications are reviewed. We will continue to follow the patient, make recommendations. Overall prognosis remains guarded. Dictation was produced using [employer] software. Please excuse any grammatical, word or spelling errors. Time with Patient: Less than 30
--- NOTE | 2024-12-08 01:15 | PN ---
PROGRESS NOTE DATE OF SERVICE: 12/07/2024 CHIEF COMPLAINT: Right side empyema. HISTORY OF PRESENT ILLNESS: This lady is stable and doing well. The chest tube still in place and is being advanced slowly. There is still some persistent fluid and air in the right chest. PHYSICAL EXAMINATION: GENERAL: She appears to be pale and chronically ill. She is awake and alert. CHEST: Demonstrates breath sounds on both sides. CARDIAC: Normal. IMPRESSION: Right-sided empyema. PLAN: Continue to follow pending any further medical issues or problems. Discharge planning is requested. MMODL / IJN: [id number] /
--- NOTE | 2024-12-08 08:55 | XR ---
EXAMINATION TYPE: XR chest 1V portable DATE OF EXAM: 12/08/2024 8:48 AM COMPARISON: 12/07/2024 CLINICAL INDICATION: Female, 69 years old with history of chest tube, TECHNIQUE: XR chest 1V portable views of the chest are obtained. FINDINGS: Stable right basilar loculated pneumothorax with chest tube in place. Hydropneumothorax component see n. The heart is stable. Hilar and mediastinal structures are within normal limits. Degenerative changes are seen of the dorsal spine. IMPRESSION: 1. Stable right basilar loculated pneumothorax with chest tube in place. Hydropneumothorax component seen. [facility], , 12/08/2024 8:53 AM
--- NOTE | 2024-12-08 10:51 | P.PN ---
Subjective Progress Note Date: 12/08/24 Principal diagnosis: Right basilar masslike consolidation, right loculated effusion, leukocytosis, hyponatremia. History of gastric ulcer, raynaud's, distant remote history of smoking POD #14 Right thoracoscopy with decortication and single level intercostal nerve block. Status post day #9 instillation of talc slurry through the chest tube performed by Dr. Laureano. The patient was seen and examined at her bedside today December 08, 2024 on the cardiac stepdown unit. She is currently sitting up to the bedside edge, is awake, alert, oriented x 3 and is in no acute apparent distress. She denies any complaints of pain or shortness of breath at this time. Right pleural chest tube remains in place to low continuous wall suction -20 cm H2O. No airleak is present this a.m. Chest x-ray is showing a stable right basilar loculated pneumothorax with chest tube in place, hydropneumothorax component seen. She is currently scheduled for a right VATS with repair of airleak today by Dr. Neal, although we will place her chest tube to waterseal and repeat chest x-ray at 11:30 AM. Further recommendations to follow based on patient's airleak. Oxygen saturations are 93% on room air and she is achieving 1000 mL on her incentive spirometry with encouragement. Objective - Vital Signs Vital signs: Vital Signs Temp 97.9 F 12/08/24 07:51 Pulse 86 12/08/24 08:53 Resp 20 12/08/24 07:51 BP 104/67 12/08/24 07:51 Pulse Ox 94 L 12/08/24 07:51 FiO2 21 12/07/24 08:44 Intake & Output 12/07/24 12/08/24 12/08/24 18:59 06:59 18:59 Intake Total 10 Output Total 560 1150 800 Balance -550 -1150 -800 Weight 54 kg Intake: IV 10 Invasive Line 5 10 Output: Chest Tube Drainage 60 50 Chest Tube Right Upper 60 50 Posterior Chest Urine 500 1100 800 Other: Voiding Method Toilet Toilet # Voids 1 # Bowel Movements 1 - Exam CONSTITUTIONAL: Appears comfortable, cooperative, no acute distress. RESPIRATORY: Lungs sounds diminished in the bases bilaterally, right greater than left. Respirations symmetrical, nonlabored. Currently on room air with oxygen saturation 93%, achieving 1000 mL on her incentive spirometry. Strong cough. CARDIOVASCULAR: S1, S2 present. Regular rate and rhythm. Remote telemetry showing sinus rhythm. Palpable peripheral pulses bilaterally. No edema present. No calf pain or tenderness noted. SCDs present. GASTROINTESTINAL: Abdomen soft, nontender, nondistended. Active bowel sounds present 4 quadrants. Tolerating diet. GENITOURINARY: Continues to void. INTEGUMENTARY: Skin is warm and dry with with no clubbing or cyanosis present. NEUROLOGIC: Cranial nerves II through XII intact. No focal deficits. MUSKULOSKELETAL: Able to move all extremities, strength equal bilaterally. PSYCHIATRIC: Alert and oriented to person place and time. INVASIVE LINES AND TUBES: Right chest tube drain remains in place to low continuous wall suction -20 cm H2O. No airleak present. Draining scant thin serosanguineous drainage. - Allied health notes Allied health notes reviewed: nursing - Labs CBC & Chem 7: 12/07/24 06:07 12/07/24 06:07 Labs: Abnormal Lab Results - Last 24 Hours (Table) 12/07/24 Range/Units 10:02 Blood Bank Comment Sent to [facility] A Microbiology - Last 24 Hours (Table) 11/07/24 09:02 Acid Fast Bacilli Smear - Preliminary Pleural Fluid Acid Fast Bacilli Culture - Preliminary - Imaging and Cardiology Chest x-ray: report reviewed, image reviewed Assessment and Plan Assessment: Right basilar masslike consolidation Right loculated effusion, complicated, related to infection, status post right thoracoscopy with decortication Leukocytosis Hyponatremia Chest pain, cough with sputum secondary to above Recent 8 pound weight loss over 6 weeks History of gastric ulcer Raynaud's Distant remote history of smoking Plan: We will place her right pleural chest tube to waterseal and obtain a chest x-ray at 11:30 AM today. Further recommendations to proceed with right VATS to follow based on patient's airleak and chest x-ray results. Continue to encourage use of incentive spirometry 10 times every hour while awake. Continue n.p.o. status until decision regarding VATS is made. Increase activity as tolerated. Medical management of other comorbidities per internal medicine, pulmonology and infectious disease. Continue to monitor daily chest x-rays. More recommendations to follow based on patient's clinical course. Time with Patient: Less than 30
--- NOTE | 2024-12-08 12:31 | XR ---
EXAMINATION TYPE: XR chest 1V portable DATE OF EXAM: 12/08/2024 12:11 PM COMPARISON: 12/08/2024 CLINICAL INDICATION: Female, 69 years old with history of Status post right VATS with decortication, TECHNIQUE: XR chest 1V portable views of the chest are obtained. FINDINGS: Stable loculated right basilar pneumothorax with hydropneumothorax component and chest tube in place. There is no evidence for focal infiltrate. The heart is stable. Hilar and mediastinal structures are within normal limits. Degenerative changes are seen of the dorsal spine. IMPRESSION: 1. Stable chest [facility], , 12/08/2024 12:29 PM
--- NOTE | 2024-12-08 13:21 | P.PN ---
Subjective Progress Note Date: 12/08/24 Principal diagnosis: Sepsis. 69-year-old female presenting the emergency department last night with a chief complaint of right upper quadrant abdominal pain with radiation to the right back. Ongoing for the last 2 days. Workup in the emergency department including abdominal/pelvis CT which does not show any acute intra-abdominal process. Remarkable for right middle lobe cystic lesion and moderate to large right-sided pleural effusion. Follow-up chest CTA did not show any evidence of pulmonary embolism. Right basilar masslike consolidation measuring 5.4 x 5.8 cm, concerning for possible malignancy. Additional surrounding airspace consolidation, possibly superimposed pneumonia. Large right-sided pleural effusion noted. Severe centrilobular emphysematous changes. Labs remarkable for a CBC with a WBC count of 62.7, hemoglobin 13.4, platelets 801. CMP with a sodium 130, potassium 5, chloride 95, serum bicarb 24, BUN 28, creatinine 0.88, glucose 105. Lactate 2.7 down to 1.1. AST 57, ALT 26, ALP 268. Troponins less than 0.012. NT proBNP 467. Lipase 26. Patient currently being evaluated in emergency department. She is resting comfortably on 2 L/min nasal cannula. SpO2 reading 98%. Again endorses above-mentioned right upper quadrant pain with radiation to the right thoracic level back. Previously, rated 9 out of 10 on a 10 point numerical scale. Started approximately 2 days ago. Denies any nausea, vomiting, change in bowel movements, diarrhea. Does endorse previous congested cough without much sputum production. Denies any significant purulent sputum or hemoptysis. Denies any fevers, chills. No previously diagnosed COPD. She is a former tobacco smoker, quit approximately 9 years ago. Prior to this, she smoked 1 pack, which lasted for almost a month. No family or personal history of lung cancer. No significant unintentional weight loss. No recent outpatient treatments for pneumonias. Her primary care provider is Dr. Muñoz. Given empiric doses of azithromycin, Rocephin, Flagyl, and vancomycin in the ED. Afebrile. Normal saline infusing at 130 mL/h. Nontoxic appearance. Hemodynamic stable. The patient is seen today November 08, 2024 in follow-up on the regular medical floor. She is currently sitting up in bed. Awake and alert in no acute distress. Maintaining good O2 saturations in the 90s on 2 L/min per nasal cannula. She did have a right sided pigtail catheter placed yesterday. She als o had a thoracentesis performed yesterday. She continues with hazy yellow output. Her pleural fluid was exudate with a protein of 3.6 and an LDH greater than 2500. Procalcitonin was 2.74. She is currently on Unasyn. Chest x-ray continues to show ongoing moderate to large right pleural effusion with underlying atelectasis and/or consolidation. Minimally decreased compared to previous. Pleural fluid cultures are pending. White count 26.2. Hemoglobin 11.2. Platelets 544. Sodium 134. Potassium 3.7. Bicarb 23. BUN 14. Creatinine 0.52. Viral screen was negative for influenza A/B, RSV, COVID. The patient is seen today November 09, 2024 in follow-up on the regular medical floor. She is awake and alert in no acute distress. She did have some issues with desaturations earlier this morning with minimal activity. Chest x-ray shows worsening left-sided pleural effusion which is now moderate. She is currently maintaining good O2 saturations in the mid 90s on 5 L high flow nasal cannula. She is afebrile. Hemodynamically stable. She did have lytics instilled into the pigtail catheter yesterday. A total of 1420 mL have been returned since. Additional lytics will be instilled today per CT service. She continues to work well with the incentive spirometer. She remains on Unasyn. Pleural fluid cultures pending. Cytology pending. White count 38.6. Hemoglobin 11.5. Platelets 605. Seen today on 11/10/2024, patient is feeling better, breathing easier, chest x- ray is not showing much improvement on the right side pleural effusion. Still undergoing lytic therapy. May have to consider repeat CT of the chest in the next couple of days. Clinically however the patient is doing well, remains on antibiotics, cytology from the pleural effusion came back negative, cultures remain negative, still the differential diagnosis includes malignancy and/or parapneumonic complicated pleural effusion. Patient was seen today on 11/11/2024, patient is doing well, unfortunately angelo fontaine pulled out her pigtail catheter accidentally, and no more lytic therapy could be given for this patient at this point, the chest x-ray is showing improvement, but her initial CT of the chest raised the possibility of malignancy/lung mass, I will go ahead and recommend repeat CT of the chest now for follow-up on the initially abnormal CT of the chest. Clinically I did not believe the patient had lung mass, I felt she had masslike consolidation. And may have resolved based on the fact that the patient has been receiving lytic therapy for her complicated right-sided pleural effusion. The pleural effusion was negative for malignancy. And it was negative for active infection as the cultures have been negative. Patient was seen today on 11/12/2024, patient seems to be comfortable, not in distress, continues to have leukocytosis with WBC count of 24,000, continues to have a right middle lobe cystic lesion, exact etiology is not clear, strongly doubt malignancy I believe is most likely a bulla filled with fluid. Or could represent retained secretions and airway. CT of the chest showed hydropneumothorax, I believe the patient may benefit eventually either from placement of pigtail catheter again or decortication if thoracic surgery is willing. May also require bronchoscopy and biopsy or evaluation of the right middle lobe. At this point in time we are continuing antibiotics, and we need to readdress that pigtail catheter again on Wednesday. Patient was seen today on 11/13/2024, patient is comfortable, not in distress, on nasal cannula patient is supposed to have placement of pigtail catheter again tomorrow for lytic therapy. In the meantime remains on antibiotics, continues to have loculated pleural effusion, and the fluid came back positive for Streptococcus intermedius. Continues to have leukocytosis with WC count of 24.0 hemoglobin 10.3. Patient is on 2 L nasal cannula and O2 sat is 91 to 94% Progress note dated November 14, 2024. 69-year-old female seen today in room 360. She is awake and alert. She is resting comfortably in bed. The patient currently is on Rocephin and Flagyl. She is on 2 L nasal cannula. No IV fluids. The pigtail catheter will be replaced today. She continues to be followed by cardiothoracic surgery. Laboratory data includes a white count of 18.8, hemoglobin 10.6, hematocrit 31.4, and a platelet count of 506,000. Sodium 134, potassium 3.8, chlorides 106, CO2 22, BUN 7, creatinine 0.49. Glucose is 70. Albumin 1.7. Pleural fluid cultures were positive for Streptococcus intermedius. Chest x-ray shows a persistent right basilar opacity/effusion. Progress note dated November 15, 2024. 69-year-old female seen today in room 360. The patient is resting comfortably in bed. She is currently on 2 L. No IV fluids. She has a right pigtail catheter in place. She is receiving both Rocephin and Flagyl, for streptococcal infection. The patient is receiving tPA, and alpha dornase, as per cardiothoracic surgery. Clinically, she is feeling well. She is awake and alert. No respiratory distress. No new laboratory data today. Chest x-ray shows a right basilar pleural catheter. Right sided pleural effusion has diminished. Progress note dated November 16, 2024. 69-year-old female seen today in room 360. She is sitting up in bed. She is alert and awake. No acute distress. She is continues on nasal O2 at 2 L. She is getting saline at 10 cc an hour. Her right pigtail catheter continues to function. She did receive tPA and alpha dornase today, via cardiothoracic surgery. The patient continues on Rocephin and Flagyl. No new laboratory data today. Chest x-ray today, November 16, shows diminished right lower lobe fluid collection. Drainage catheter, is noted. Progress note dated November 17, 2024. 69-year-old female seen again in room 360. She sitting in the chair next to the hospital bed. She is on room air. She continues on Rocephin and Flagyl. The patient did receive tPA, and alpha dornase today, administered by cardiothoracic surgery. Her chest x-ray continues to show improvement. Clinically, she is very stable. She has a right sided pigtail catheter in place. White count of 17.5, hemoglobin 10.5, hematocrit 30.8, platelet count 703,000. Sodium 133, potassium 4.1, chlorides 108, CO2 23, BUN 3, creatinine 0.56. Glucose is 100. Calcium is 7.0. Albumin is 1.7. Pleural fluid back from November 07, is positive for Streptococcus species. Chest x-ray shows improving right-sided opacities. Progress note dated November 18, 2024. 69-year-old female seen today in room 360. The patient is resting comfortably in bed. She is awake and alert. She is on room air. She is getting saline at 50 cc an hour. Cardiothoracic surgery is not planning to place any lytics, through her right sided pigtail catheter today. Currently, the patient is without complaints. Current laboratory data includes a sodium 135, potassium 5.4, chlorides 111, CO2 19, BUN 6, creatinine 0.57. Calcium is 7.4. Pleural fluid cultures were positive for Streptococcus intermedius. Chest x-ray is essentially unchanged. Progress note dated November 19, 2024. 69-year-old female seen today in room 360. She is lying in bed. She will not receive any tPA or alpha dornase today. She is on 2 L. No IV fluids. Clinically, she looks comfortable. She is in no acute distress. She is not coughing or short of breath. Today's labs include a white count of 14.1, hemoglobin 10.8, hematocrit 32.2, and a platelet count of 675,000. Sodium 136, potassium 4.1, chlorides 110, CO2 20, BUN 7, creatinine 0.58. Pleural fluid cultures were positive for Streptococcus intermedius. Chest x-ray reveals a right sided pleural effusion. Right pigtail catheter is unchanged. Some atelectasis is noted at the bases as well. The patient is seen today November 27, 2024 in follow-up on the selective care unit. She has since undergone decortication of the loculated fluid in her right chest on November 24, 2024. Right sided chest tube remains in place. Pleur-evac to wall suction. Still with a positive leak. Chest x-ray reveals slightly increased moderate size right hydropneumothorax with stable right chest tube. Similar right basilar patchy airspace opacities and consolidation concerning for atelectasis and/or infiltrate. Small similar pleural effusion. Follow-up pleural fluid cultures revealed no growth. White count 7.8. Hemoglobin 9.5. Platelets 477. Sodium 132. Potassium 3.5. Bicarb 32. BUN 10. Creatinine 0.57. Glucose 76. She continues to work with the incentive spirometer. She remains on bronchodilators. Antibiotics in the form of ceftriaxone. Heparin for DVT prophylaxis. Remains on IV diuretics. Currently in a -1.2 L balance. patient was seen today on 11/28/2024, patient continues to have right-sided chest tube in place, however needs to be pulled out about 3 cm since its not in the center of the loculated pleural effusion, and this is being done by thoracic surgery. Presently the patient is comfortable, not in distress, remains on antibiotics, and again she continues to have a bit of a trapped lung and loculated pneumothorax. Hoping by adjusting the chest tube, that may help expand the lung at the more. Patient continues to have an air leak. No labs today. Patient is afebrile and hemodynamically stable, on 2 L nasal cannula O2 sat is 95% Seen today on 11/30/2024, patient had bowel pleurodesis done yesterday, continues to have chest tube in place continues to have loculated right-sided p neumothorax, continues to have significant air leak. Patient however seems to be very comfortable and not in distress. Remains on antibiotics for her empyema, her white count responded well 8.19 hemoglobin 9.1 electrolytes are normal potassium is a bit low at 3.2 renal profile is normal Seen today on 12/01/2024, patient is doing well clinically and does not seem to be in distress, however continues to have a significant complicated issue with her persistent right-sided pneumothorax and trapped lung, patient is status post decortication she is also status post talc pleurodesis, continues to have an air leak, continues to be on oxygen, not making a dramatic improvement overall. Patient is now POD #7 Right thoracoscopy with decortication and single level intercostal nerve block. Status post day #2 instillation of talc slurry through the chest tube. Chest x-ray was reviewed today, again she continues to have a pneumothorax and continues to have airleak. CBC is basically normal except for hemoglobin of 8.7 electrolytes are normal BUN is 7 creatinine 0.47 patient was seen today on 12/02/2024, clinically the patient is doing well, asymptomatic, patient is now postoperative day #8 right thoracoscopy with decortication and postoperative day #3 instillation of talc slurry through the chest tube. No major change in the last 24 hours, the loculated pneumothorax may seem to be a bit smaller today, continues to have continuous airleak in spite of talc pleurodesis. Patient is comfortable not in distress. Remains on antibiotics for empyema Seen today on 12/03/2024, not much of the change continues to have airleak continues to have a loculated pneumothorax, as [id number] her chest x-ray which seems to show that her pneumothorax is even larger today. Patient is postoperative day #9 right thoracoscopy with decortication and postoperative day #4 instillation of talc through the chest tube. Clinically patient is comfortable, not in distress. Remains on antibiotics for empyema. Progress note dated 12/04/2024. 69-year-old female who is now been in the hospital for 27 days. I saw her last on November 19, 2024. The patient had a decortication, on November 24. She is currently on 2 L. She does have a leak from the right sided chest tube. Initially, she had a pigtail catheter placed on November 14. She continues on Rocephin and Flagyl. She actually did have a talc pleurodesis, performed by the thoracic surgeon. Clinically, she looks relatively stable. She sitting in a chair next to the hospital bed. No respiratory distress. Laboratory data includes a white count 8.3, hemoglobin 8.8, hematocrit 27.2, and a normal platelet count. Sodium 135, potassium 4, chloride 98, CO2 33, BUN 11, creatinine 0.6. Glucose is 78. Calcium 8.3, magnesium 1.6. Progress note dated December 05, 2024. 69-year-old female seen again in room 360. The patient has not been here in the hospital for 28 days. She continues on 2 L nasal cannula. She is getting saline at 10 cc an hour. She has a right chest tube in place, which has an ongoing leak. Clinically, she is sitting in a chair, next to the hospital bed. She is awake and alert. No respiratory distress or difficulty. Current labs include a white count of 8.2, hemoglobin 9.1, hematocrit 28.1, and platelet count of 534,000. Sodium 134, potassium 4.2, chlorides 103, CO2 31, BUN 12, creatinine 0.65. Glucose is 108. Calcium 8, and magnesium 2.0. Chest x-ray shows similar to improving right lower lobe loculated pneumothorax. There is a right lower lobe infiltrate as well. Progress note dated December 06, 2024. 69-year-old female seen today in room 360. The patient has not been in the hospital for 29 days. She is a right sided chest tube in place. She is on room air. She is not receiving any IV fluids. The chest tube on the right, has a persistent air leak. The patient is feeling well, sitting in a chair next to the hospital bed. She denies any shortness of breath. She is awake and alert. No chest pain or chest discomfort. No new labs today. Progress note dated December 07, 2024. 69-year-old female again seen today in room 360. Currently she is on room air. She is sitting in the chair next to the hospital bed. She is not receiving any IV fluids. Right chest tube is still in place. She has an ongoing leak. Clinically, she looks very stable. She is not complaining of shortness of breath, or difficulty breathing. Labs include a white count of 6.3, hemoglobin 9, hematocrit 28.5, and a platelet count of 334,000. Sodium 134, potassium 4.2, chlorides 102, CO2 31, BUN 12, creatinine 0.58. Glucose is 84. Calcium is 7.8. Chest x-ray dated December 07, shows hydropneumothorax on the right, but otherwise, the chest x-ray is largely unchanged. Progress note dated December 08, 2024. 69-year-old female who is now been in the hospital for 31 days. She is currently on room air. She is on saline at 20 cc an hour. The patient may be going to the operating room today, pending the results of the chest x-ray done at noon. Her chest tube was taken off of suction, placed to waterseal. No new labs today as yet. Chest x-ray today shows a stable loculated right basilar pneumothorax with hydropneumothorax, with chest tube in place. Objective - Vital Signs Vital signs: Vital Signs Temp 97.9 F 12/08/24 07:51 Pulse 80 12/08/24 12:00 Resp 20 12/08/24 08:00 BP 104/67 12/08/24 07:51 Pulse Ox 94 L 12/08/24 07:51 FiO2 21 12/07/24 08:44 Intake & Output 12/07/24 12/08/24 12/08/24 18:59 06:59 18:59 Intake Total 10 Output Total 560 1150 800 Balance -550 -1150 -800 Weight 54 kg Intake: IV 10 Invasive Line 5 10 Output: Chest Tube Drainage 60 50 0 Chest Tube Right Upper 60 50 0 Posterior Chest Urine 500 1100 800 Other: Voiding Method Toilet Toilet # Voids 1 # Bowel Movements 1 - Exam No acute distress, oriented 3. Currently on room air. HEENT examination is grossly unremarkable. Mucous membranes are moist. No oral lesions. Neck supple. Full range of motion. No adenopathy thyromegaly or neck vein distention. Cardiovascular examination reveals regular rhythm rate. S1-S2 normal. No S3 or S4. No discernible murmur noted. Lungs reveal diminished right basilar lung sounds. Mild scattered rhonchi. No wheezes or crackles. Right chest tube in place. Abdomen soft bowel sounds are heard. No masses or tenderness. Extremities are intact. No cyanosis clubbing or edema. Skin is without rash or lesion. Neurologic examination is brief but nonfocal. - Labs CBC & Chem 7: 12/07/24 06:07 12/07/24 06:07 Labs: Microbiology - Last 24 Hours (Table) 11/07/24 09:02 Acid Fast Bacilli Smear - Preliminary Pleural Fluid Acid Fast Bacilli Culture - Preliminary Assessment and Plan Assessment: Complicated right sided pleural effusion/exudate, fluid positive for Streptococcus intermedius, currently with chest tube in place. S/P decortication, 07/27/2024, with placement of a standard chest tube, and talc pleurodesis. Reinsertion of pigtail catheter, November 14, 2024. Status post right-sided thoracentesis. Acute hypoxemic respiratory failure. Acute leukocytosis, secondary to right pleural space infection. Plan: Plan dated November 14, 2024. The patient continues on antibiotics. The patient had a another pigtail catheter placed today by interventional radiology. Currently, the patient is on Flagyl, and Rocephin. She is not receiving any IV fluids. She is on 2 L nasal cannula. Labs, x-rays, and all medications are reviewed. We will continue to follow. The patient is currently not ready for discharge. Prognosis is guarded. Dictation was produced using [employer] dictation software. Please excuse any grammatical, word or spelling errors. Plan dated November 15, 2024. The patient is seen today in room 360. She continues on nasal O2 2 L. She is not receiving any additional IV fluids. The patient continues on Rocephin, and Flagyl, for streptococcal infection. The right pigtail catheter is in place. The patient is receiving tPA, and alpha dornase, as per cardiothoracic surgery, to the right pleural space. Labs, x-rays, medications are reviewed. We will co ntinue to follow the patient, and make recommendations where appropriate dictation was produced using [employer] software. Please excuse any grammatical, word or spelling errors. Plan dated November 16, 2024. The patient is again seen today in room 360. She continues on nasal O2 at 2 L. She is getting saline at 10 cc an hour. The right pigtail catheter is noted to be in place. Her chest x-ray is improved. She did receive tPA and alpha dornase, today, administered by cardiothoracic surgery. She continues on Rocephin and Flagyl. All labs, x-rays, and medications are reviewed. We will continue to follow make recommendations were appropriate. Dictation was produced using [employer] software. Please excuse any grammatical, word or spelling errors. Plan dated November 17, 2024. The patient is seen today in room 360. The patient is clinically improved, and radiographically improved. Right pigtail catheter remains in place. The patient remains both on Rocephin and Flagyl. The patient is currently on room air. No additional IV fluids. All labs, x-rays, and medications are reviewed. We will continue to follow the patient, make recommendations were appropriate. Prognosis is guarded. Dictation was produced using [employer] software. Please excuse any grammatical, word or spelling errors. Plan dated November 18, 2024. The patient is seen again in room 360. The patient is currently on room air. She is getting saline at 50 cc an hour. Right pigtail catheter in place. According to cardiothoracic surgery, no plans for installation of lytics, into the right pleural space. The patient was typically getting tPA, and alpha dornase. Labs, x-rays, and all medications are reviewed. The patient continues on Rocephin, and Flagyl. We will continue to follow make recommendations. Prognosis is guarded. Dictation was produced using [employer] software. Please excuse any grammatical, word or spelling errors. Plan dated November 19, 2024. The patient is seen today in room 360. She is laying flat in bed. No distress. She is currently on 2 L nasal cannula. She is not receiving any IV fluids. She was seen by cardiothoracic surgery. They are not planning to give her any more alpha dornase or tPA, through the right sided pigtail catheter. Clinica lly, the patient is very stable. We will continue to follow. X-rays, labs, and all medications are reviewed. Additional recommendations and suggestions are forthcoming. The patient continues on Rocephin and Flagyl. Prognosis is guarded. Dictation was produced using [employer] software. Please excuse any grammatical, word or spelling errors. Plan dated December 04, 2024. The patient was last seen on November 19, 2024. Since then, the patient has had a decortication performed on November 24, 2024. Pigtail catheter was removed, the patient received a standard chest tube. She also had talc pleurodesis on the right side. Unfortunately, she still has a leak. She is on 2 L nasal cannula. No respiratory distress. She continues on Rocephin and Flagyl. Overall prognosis remains guarded. She is a full code patient. We will continue to follow make recommendations were appropriate. All labs, x-rays, and medications are reviewed. Dictation was produced using [employer] software. Please excuse any grammatical, word or spelling errors. Plan dated December 05, 2024. 69-year-old female seen today in room 360. She remains on 2 L of oxygen. She is sitting in a chair next to the bed. No distress. No respiratory distress. The patient still has a right chest tube in place. She still has an ongoing leak, albeit smaller. Chest x-ray, labs, x-rays, and everything else is evaluat ed. Hopefully the patient will be ready for discharge in the next few days or so. We will continue to follow make recommendations. Prognosis is guarded. She continues on Rocephin, and Flagyl. No other recommendations are made. Dictation was produced using [employer] software. Please excuse any grammatical, word or spelling errors. Plan dated December 06, 2024. The patient is seen today in room 360. The patient has been weaned off of oxygen. She is sitting in the chair next to the hospital bed. He is not receiving any IV fluids. The patient has a right chest tube in place. The c hest tube shows a persistent continuous airleak. Labs, x-rays, and medications are reviewed. We will continue to follow the patient, make recommendations. Overall prognosis remains guarded. Dictation was produced using [employer] software. Please excuse any grammatical, word or spelling errors. Plan dated December 07, 2024. The patient is seen today in room 360. Clinically, the patient is doing well. She is sitting in a chair next to the hospital bed. She is not requiring any supplemental oxygen. She is not receiving any IV fluids. The right chest tube is still in place, and does have a ongoing/continuous leak. Labs, x-rays, and medications are reviewed. We will continue to follow the patient, make recommendations. Overall prognosis remains guarded. Dictation was produced using [employer] software. Please excuse any grammatical, word or spelling errors. Plan dated December 08, 2024. Cardiothoracic surgery, saw the patient, I decided to remove remove the chest tube off of suction. The plan was to get a chest x-ray at about 12 or 1230 today, and make a decision about a VATS procedure. Labs, x-rays, medications are reviewed. We will continue to follow the patient. The patient looks very clinically stable. She is on room air. She is sitting in a chair next to the hospital bed. Labs, x-rays, and medications are reviewed. We will continue to follow. Dictation was produced using [employer] software. Please excuse any grammatical, word or spelling errors. Time with Patient: Less than 30
--- NOTE | 2024-12-08 15:23 | P.PN ---
Subjective Progress Note Date: 12/07/24 Principal diagnosis: Reason for follow-up is pneumonia/empyema Patient is a 69-year-old female with a past medical history significant for ulcer Raynaud's phenomena and osteoporosis presenting to the hospital for evaluation of right-sided chest pain and cough, patient be diagnosed with right-sided effusion history of empyema and pneumonia prompted this consultation.Patient is status post right thoracoscopy with decortication for right-sided empyema no OR culture procedure completed on 11/24/2024 Patient is status post installation of tunneled cath of the right pleural space for persistent air leak on 11/29/2024 On today's evaluation that is 12/07/2024,the patient remains to be afebrile, patient is on room air not requiring supplemental oxygen and denies any shor tness of breath no chest pain or cough.Patient denies having any nausea or vomiting, no abdominal pain and no diarrhea. Patient did have white count of 6.32, creatinine 0.58 Objective - Vital Signs Vital signs: Vital Signs Temp 97.9 F 12/07/24 11:48 Pulse 92 12/07/24 12:09 Resp 16 12/07/24 11:48 BP 105/68 12/07/24 11:48 Pulse Ox 97 12/07/24 11:48 FiO2 21 12/07/24 08:44 Intake & Output 12/06/24 12/07/24 12/07/24 18:59 06:59 18:59 Intake Total 380 20 10 Output Total 490 910 440 Balance -110 -890 -430 Weight 55 kg Intake: IV 20 20 10 Invasive Line 5 20 20 10 Oral 360 Output: Chest Tube Drainage 90 10 40 Chest Tube Right Upper 90 10 40 Posterior Chest Urine 400 900 400 Other: Voiding Method Toilet Toilet Toilet # Voids 1 # Bowel Movements 1 1 - Exam GENERAL DESCRIPTION: An elderly female lying in bed in no distress RESPIRATORY SYSTEM: Unlabored breathing , decreased breath sounds at bases HEART: S1 S2 regular rate and rhythm , ABDOMEN: Soft , no tenderness EXTREMITIES: No edema feet - Labs CBC & Chem 7: 12/07/24 06:07 12/07/24 06:07 Labs: Abnormal Lab Results - Last 24 Hours (Table) 12/07/24 12/07/24 12/07/24 Range/Units 06:07 06:07 10:02 RBC 2.96 L (4.10-5.20) 10*6/uL Hgb 9.0 L (12.0-15.0) g/dL Hct 28.5 L (37.2-46.3) % MCHC 31.6 L (32.0-37.0) g/dL Sodium 134 L (137-145) mmol/L Carbon Dioxide 31 H (22-30) mmol/L Calcium 7.8 L (8.4-10.2) mg/dL Blood Bank [facility] Assessment and Plan (1) Sepsis Current Visit: Yes Status: Acute Code(s): A41.9 - SEPSIS, UNSPECIFIED ORGANISM SNOMED Code(s): 64423447 (2) Empyema lung Current Visit: Yes Status: Acute Code(s): J86.9 - PYOTHORAX WITHOUT FISTULA SNOMED Code(s): 46841045 (3) Pneumonia Current Visit: Yes Status: Acute Code(s): J18.9 - PNEUMONIA, UNSPECIFIED ORGANISM SNOMED Code(s): 880522697 Plan: 1patient presented to hospital with sepsis in this patient who did have tachypnea and tachycardia elevated white count as well as elevated lactic acid meeting criteria for SIRS/sepsis source is right-sided pneumonia with a question of postobstructive and a possible component of empyema likely community-acquired pathogen in this patient with no history of recent antibiotic exposure or flulike symptoms 2-patient pleural fluid culture currently growing Streptococcus intermedius micro lab unable to do sensitivity as reported organism not growing 3patient did have repeat CT of the chest on 11/20/2024 concerning for persistent effusion and consolidation, the patient status post right-sided thoracoscopy and decortication completed on 11/24/2024 no OR culture 4patient is afebrile and white count has normalized, still have issues with the collapsed lung as per discussion with SURVEY [employer]EARCH ANALYST for CT surgery will be reevaluated by the CT surgeon who did the initial thoracotomy tomorrow and may need repeat surgery 5patient remains to be afebrile white count has been normal IV Rocephin and oral Flagyl and monitor clinical course closely Dictation was produced using [employer] dictation software. please excuse any grammatical, word or spelling errors. Time with Patient: Less than 30
--- NOTE | 2024-12-08 15:24 | P.PN ---
Subjective Progress Note Date: 12/08/24 Principal diagnosis: Reason for follow-up is pneumonia/empyema Patient is a 69-year-old female with a past medical history significant for ulcer Raynaud's phenomena and osteoporosis presenting to the hospital for evaluation of right-sided chest pain and cough, patient be diagnosed with right-sided effusion history of empyema and pneumonia prompted this consultation.Patient is status post right thoracoscopy with decortication for right-sided empyema no OR culture procedure completed on 11/24/2024 Patient is status post installation of tunneled cath of the right pleural space for persistent air leak on 11/29/2024 On today's evaluation that is 12/08/2024, the patient continues to be afebrile, the patient is on room air and breathing comfortably, the Pt denies having any chest pain or cough, the patient denies having any abdominal pain no vomiting or any diarrhea mention feeling better. Patient did have a chest x-ray this morning stable loculated right basilar p neumothorax with hydropneumothorax, no lab draw Objective - Vital Signs Vital signs: Vital Signs Temp 97.9 F 12/08/24 07:51 Pulse 101 H 12/08/24 14:00 Resp 20 12/08/24 14:00 BP 104/67 12/08/24 07:51 Pulse Ox 94 L 12/08/24 07:51 FiO2 21 12/07/24 08:44 Intake & Output 12/07/24 12/08/24 12/08/24 18:59 06:59 18:59 Intake Total 10 Output Total 560 1150 800 Balance -550 -1150 -800 Weight 54 kg Intake: IV 10 Invasive Line 5 10 Output: Chest Tube Drainage 60 50 0 Chest Tube Right Upper 60 50 0 Posterior Chest Urine 500 1100 800 Other: Voiding Method Toilet Toilet # Voids 1 # Bowel Movements 1 - Exam GENERAL DESCRIPTION: An elderly female up in the chair in no distress RESPIRATORY SYSTEM: Unlabored breathing , decreased breath sounds at bases HEART: S1 S2 regular rate and rhythm , ABDOMEN: Soft , no tenderness EXTREMITIES: 1+ edema feet - Labs CBC & Chem 7: 12/07/24 06:07 12/07/24 06:07 Labs: Microbiology - Last 24 Hours (Table) 11/07/24 09:02 Acid Fast Bacilli Smear - Preliminary Pleural Fluid Acid Fast Bacilli Culture - Preliminary Assessment and Plan (1) Sepsis Current Visit: Yes Status: Acute Code(s): A41.9 - SEPSIS, UNSPECIFIED ORGANISM SNOMED Code(s): 37063998 (2) Empyema lung Current Visit: Yes Status: Acute Code(s): J86.9 - PYOTHORAX WITHOUT FISTULA SNOMED Code(s): 00944521 (3) Pneumonia Current Visit: Yes Status: Acute Code(s): J18.9 - PNEUMONIA, UNSPECIFIED ORGANISM SNOMED Code(s): 256509790 Plan: 1patient presented to hospital with sepsis in this patient who did have tachypnea and tachycardia elevated white count as well as elevated lactic acid meeting criteria for SIRS/sepsis source is right-sided pneumonia with a question of postobstructive and a possible component of empyema likely community-acquired pathogen in this patient with no history of recent antibiotic exposure or flulike symptoms 2-patient pleural fluid culture currently growing Streptococcus intermedius micro lab unable to do sensitivity as reported organism not growing 3patient did have repeat CT of the chest on 11/20/2024 concerning for persistent effusion and consolidation, the patient status post right-sided thoracoscopy and decortication completed on 11/24/2024 no OR culture 4patient is afebrile and white count has normalized, still have issues with the collapsed lung and was supposed to go for repeat surgery apparently has been postponed chest x-ray showing stable chest 5patient remains to be afebrile white count has been normal to continue with Rocephin and Flagyl while inpatient Dictation was produced using [employer] dictation software. please excuse any grammatical, word or spelling errors. Time with Patient: Less than 30
[2024-12-08] MEDS: LACTATED RINGERS 1,000 ML IV SCH (22:16)
--- NOTE | 2024-12-09 06:37 | XR ---
EXAMINATION TYPE: XR chest 1V portable DATE OF EXAM: 12/09/2024 COMPARISON: 12/08/2024 CLINICAL INDICATION: Female, 69 years old with history of Status post right VATS; TECHNIQUE: Single frontal view of the chest is obtained. FINDINGS: No change in the right loculated hydropneumothorax at the right lung base, right lower lobe infiltra te and right chest tube. The left lung remains clear. Heart and pulmonary vasculature are normal. The osseous structures are intact. IMPRESSION: No interval change in the right lower lobe infiltrate and loculated hydropneumothorax. [facility], , 12/09/2024 6:35 AM
--- NOTE | 2024-12-09 08:14 | P.PN ---
Subjective Progress Note Date: 12/09/24 Principal diagnosis: Right basilar masslike consolidation, right loculated effusion, leukocytosis, hyponatremia. History of gastric ulcer, raynaud's, distant remote history of smoking POD #15 Right thoracoscopy with decortication and single level intercostal nerve block. Status post day #10 instillation of talc slurry through the chest tube performed by Dr. Laureano. The patient was seen and examined in follow-up today December 09, 2024 at her bedside on the third floor cardiac stepdown unit. She is currently sitting up to the bedside chair, is awake, alert, oriented x 3 and is in no acute apparent distress. Denies any complaints of pain or shortness of breath at this time. Her right pleural chest tube has been clamped overnight, and when unclamped this morning there was no airleak present. Chest x-ray report reviewed, no interval change in the right lower lobe infiltrate and loculated hydropneumothorax. Oxygen saturations are 93% on room air and she is achieving 1000 mL on her incentive spirometry with encouragement. She has been afebrile in the last 24 hours. Objective - Vital Signs Vital signs: Vital Signs Temp 97.3 F L 12/09/24 03:16 Pulse 98 12/09/24 03:16 Resp 18 12/09/24 03:16 BP 94/56 12/09/24 03:16 Pulse Ox 91 L 12/09/24 03:16 FiO2 21 12/07/24 08:44 Intake & Output 12/08/24 12/09/24 12/09/24 18:59 06:59 18:59 Output Total 1100 0 Balance -1100 0 Weight 52.7 kg Output: Chest Tube Drainage 0 0 Chest Tube Right Upper 0 0 Posterior Chest Urine 1100 Other: Voiding Method Toilet # Bowel Movements 1 - Exam CONSTITUTIONAL: Appears comfortable, cooperative, no acute distress. RESPIRATORY: Lungs sounds diminished in the bases bilaterally, right greater than left. Respirations symmetrical, nonlabored. Currently on room air with oxygen saturation 93%, achieving 1000 mL on her incentive spirometry. Strong cough. CARDIOVASCULAR: S1, S2 present. Regular rate and rhythm. Remote telemetry showing sinus rhythm. Palpable peripheral pulses bilaterally. No edema present. No calf pain or tenderness noted. SCDs present. GASTROINTESTINAL: Abdomen soft, nontender, nondistended. Active bowel sounds present 4 quadrants. Tolerating diet. GENITOURINARY: Continues to void. INTEGUMENTARY: Skin is warm and dry with with no clubbing or cyanosis present. NEUROLOGIC: Cranial nerves II through XII intact. No focal deficits. MUSKULOSKELETAL: Able to move all extremities, strength equal bilaterally. PSYCHIATRIC: Alert and oriented to person place and time. INVASIVE LINES AND TUBES: Right chest tube was clamped overnight, when unclamped this morning no airleak was present. Draining scant thin serosanguineous drainage. - Allied health notes Allied health notes reviewed: nursing - Labs CBC & Chem 7: 12/07/24 06:07 12/07/24 06:07 Labs: Abnormal Lab Results - Last 24 Hours (Table) 12/07/24 Range/Units 10:02 Reference Lab Result See [facility] REF Reports A Microbiology - Last 24 Hours (Table) 11/07/24 09:02 Fungal Culture - Final Lung - Right - Imaging and Cardiology Chest x-ray: report reviewed, image reviewed Assessment and Plan Assessment: Right basilar masslike consolidation Right loculated effusion, complicated, related to infection, status post right thoracoscopy with decortication Leukocytosis Hyponatremia Chest pain, cough with sputum secondary to above Recent 8 pound weight loss over 6 weeks Prolonged airleak greater than 5 days History of gastric ulcer Raynaud's Distant remote history of smoking Plan: We will likely remove her right pleural chest tube today. Continue to encourage use of incentive spirometry 10 times every hour while awake. Increase activity as tolerated. Medical management of other comorbidities per internal medicine, pulmonology and infectious disease. Continue to monitor daily chest x-rays. More recommendations to follow based on patient's clinical course. Time with Patient: Less than 30
--- NOTE | 2024-12-09 11:06 | P.PN ---
Subjective Progress Note Date: 12/09/24 Principal diagnosis: Sepsis. 69-year-old female presenting the emergency department last night with a chief complaint of right upper quadrant abdominal pain with radiation to the right back. Ongoing for the last 2 days. Workup in the emergency department including abdominal/pelvis CT which does not show any acute intra-abdominal process. Remarkable for right middle lobe cystic lesion and moderate to large right-sided pleural effusion. Follow-up chest CTA did not show any evidence of pulmonary embolism. Right basilar masslike consolidation measuring 5.4 x 5.8 cm, concerning for possible malignancy. Additional surrounding airspace consolidation, possibly superimposed pneumonia. Large right-sided pleural effusion noted. Severe centrilobular emphysematous changes. Labs remarkable for a CBC with a WBC count of 62.7, hemoglobin 13.4, platelets 801. CMP with a sodium 130, potassium 5, chloride 95, serum bicarb 24, BUN 28, creatinine 0.88, glucose 105. Lactate 2.7 down to 1.1. AST 57, ALT 26, ALP 268. Troponins less than 0.012. NT proBNP 467. Lipase 26. Patient currently being evaluated in emergency department. She is resting comfortably on 2 L/min nasal cannula. SpO2 reading 98%. Again endorses above-mentioned right upper quadrant pain with radiation to the right thoracic level back. Previously, rated 9 out of 10 on a 10 point numerical scale. Started approximately 2 days ago. Denies any nausea, vomiting, change in bowel movements, diarrhea. Does endorse previous congested cough without much sputum production. Denies any significant purulent sputum or hemoptysis. Denies any fevers, chills. No previously diagnosed COPD. She is a former tobacco smoker, quit approximately 9 years ago. Prior to this, she smoked 1 pack, which lasted for almost a month. No family or personal history of lung cancer. No significant unintentional weight loss. No recent outpatient treatments for pneumonias. Her primary care provider is Dr. Muñoz. Given empiric doses of azithromycin, Rocephin, Flagyl, and vancomycin in the ED. Afebrile. Normal saline infusing at 130 mL/h. Nontoxic appearance. Hemodynamic stable. The patient is seen today November 08, 2024 in follow-up on the regular medical floor. She is currently sitting up in bed. Awake and alert in no acute distress. Maintaining good O2 saturations in the 90s on 2 L/min per nasal cannula. She did have a right sided pigtail catheter placed yesterday. She als o had a thoracentesis performed yesterday. She continues with hazy yellow output. Her pleural fluid was exudate with a protein of 3.6 and an LDH greater than 2500. Procalcitonin was 2.74. She is currently on Unasyn. Chest x-ray continues to show ongoing moderate to large right pleural effusion with underlying atelectasis and/or consolidation. Minimally decreased compared to previous. Pleural fluid cultures are pending. White count 26.2. Hemoglobin 11.2. Platelets 544. Sodium 134. Potassium 3.7. Bicarb 23. BUN 14. Creatinine 0.52. Viral screen was negative for influenza A/B, RSV, COVID. The patient is seen today November 09, 2024 in follow-up on the regular medical floor. She is awake and alert in no acute distress. She did have some issues with desaturations earlier this morning with minimal activity. Chest x-ray shows worsening left-sided pleural effusion which is now moderate. She is currently maintaining good O2 saturations in the mid 90s on 5 L high flow nasal cannula. She is afebrile. Hemodynamically stable. She did have lytics instilled into the pigtail catheter yesterday. A total of 1420 mL have been returned since. Additional lytics will be instilled today per CT service. She continues to work well with the incentive spirometer. She remains on Unasyn. Pleural fluid cultures pending. Cytology pending. White count 38.6. Hemoglobin 11.5. Platelets 605. Seen today on 11/10/2024, patient is feeling better, breathing easier, chest x- ray is not showing much improvement on the right side pleural effusion. Still undergoing lytic therapy. May have to consider repeat CT of the chest in the next couple of days. Clinically however the patient is doing well, remains on antibiotics, cytology from the pleural effusion came back negative, cultures remain negative, still the differential diagnosis includes malignancy and/or parapneumonic complicated pleural effusion. Patient was seen today on 11/11/2024, patient is doing well, unfortunately angelo fontaine pulled out her pigtail catheter accidentally, and no more lytic therapy could be given for this patient at this point, the chest x-ray is showing improvement, but her initial CT of the chest raised the possibility of malignancy/lung mass, I will go ahead and recommend repeat CT of the chest now for follow-up on the initially abnormal CT of the chest. Clinically I did not believe the patient had lung mass, I felt she had masslike consolidation. And may have resolved based on the fact that the patient has been receiving lytic therapy for her complicated right-sided pleural effusion. The pleural effusion was negative for malignancy. And it was negative for active infection as the cultures have been negative. Patient was seen today on 11/12/2024, patient seems to be comfortable, not in distress, continues to have leukocytosis with WBC count of 24,000, continues to have a right middle lobe cystic lesion, exact etiology is not clear, strongly doubt malignancy I believe is most likely a bulla filled with fluid. Or could represent retained secretions and airway. CT of the chest showed hydropneumothorax, I believe the patient may benefit eventually either from placement of pigtail catheter again or decortication if thoracic surgery is willing. May also require bronchoscopy and biopsy or evaluation of the right middle lobe. At this point in time we are continuing antibiotics, and we need to readdress that pigtail catheter again on Wednesday. Patient was seen today on 11/13/2024, patient is comfortable, not in distress, on nasal cannula patient is supposed to have placement of pigtail catheter again tomorrow for lytic therapy. In the meantime remains on antibiotics, continues to have loculated pleural effusion, and the fluid came back positive for Streptococcus intermedius. Continues to have leukocytosis with WC count of 24.0 hemoglobin 10.3. Patient is on 2 L nasal cannula and O2 sat is 91 to 94% Progress note dated November 14, 2024. 69-year-old female seen today in room 360. She is awake and alert. She is resting comfortably in bed. The patient currently is on Rocephin and Flagyl. She is on 2 L nasal cannula. No IV fluids. The pigtail catheter will be replaced today. She continues to be followed by cardiothoracic surgery. Laboratory data includes a white count of 18.8, hemoglobin 10.6, hematocrit 31.4, and a platelet count of 506,000. Sodium 134, potassium 3.8, chlorides 106, CO2 22, BUN 7, creatinine 0.49. Glucose is 70. Albumin 1.7. Pleural fluid cultures were positive for Streptococcus intermedius. Chest x-ray shows a persistent right basilar opacity/effusion. Progress note dated November 15, 2024. 69-year-old female seen today in room 360. The patient is resting comfortably in bed. She is currently on 2 L. No IV fluids. She has a right pigtail catheter in place. She is receiving both Rocephin and Flagyl, for streptococcal infection. The patient is receiving tPA, and alpha dornase, as per cardiothoracic surgery. Clinically, she is feeling well. She is awake and alert. No respiratory distress. No new laboratory data today. Chest x-ray shows a right basilar pleural catheter. Right sided pleural effusion has diminished. Progress note dated November 16, 2024. 69-year-old female seen today in room 360. She is sitting up in bed. She is alert and awake. No acute distress. She is continues on nasal O2 at 2 L. She is getting saline at 10 cc an hour. Her right pigtail catheter continues to function. She did receive tPA and alpha dornase today, via cardiothoracic surgery. The patient continues on Rocephin and Flagyl. No new laboratory data today. Chest x-ray today, November 16, shows diminished right lower lobe fluid collection. Drainage catheter, is noted. Progress note dated November 17, 2024. 69-year-old female seen again in room 360. She sitting in the chair next to the hospital bed. She is on room air. She continues on Rocephin and Flagyl. The patient did receive tPA, and alpha dornase today, administered by cardiothoracic surgery. Her chest x-ray continues to show improvement. Clinically, she is very stable. She has a right sided pigtail catheter in place. White count of 17.5, hemoglobin 10.5, hematocrit 30.8, platelet count 703,000. Sodium 133, potassium 4.1, chlorides 108, CO2 23, BUN 3, creatinine 0.56. Glucose is 100. Calcium is 7.0. Albumin is 1.7. Pleural fluid back from November 07, is positive for Streptococcus species. Chest x-ray shows improving right-sided opacities. Progress note dated November 18, 2024. 69-year-old female seen today in room 360. The patient is resting comfortably in bed. She is awake and alert. She is on room air. She is getting saline at 50 cc an hour. Cardiothoracic surgery is not planning to place any lytics, through her right sided pigtail catheter today. Currently, the patient is without complaints. Current laboratory data includes a sodium 135, potassium 5.4, chlorides 111, CO2 19, BUN 6, creatinine 0.57. Calcium is 7.4. Pleural fluid cultures were positive for Streptococcus intermedius. Chest x-ray is essentially unchanged. Progress note dated November 19, 2024. 69-year-old female seen today in room 360. She is lying in bed. She will not receive any tPA or alpha dornase today. She is on 2 L. No IV fluids. Clinically, she looks comfortable. She is in no acute distress. She is not coughing or short of breath. Today's labs include a white count of 14.1, hemoglobin 10.8, hematocrit 32.2, and a platelet count of 675,000. Sodium 136, potassium 4.1, chlorides 110, CO2 20, BUN 7, creatinine 0.58. Pleural fluid cultures were positive for Streptococcus intermedius. Chest x-ray reveals a right sided pleural effusion. Right pigtail catheter is unchanged. Some atelectasis is noted at the bases as well. The patient is seen today November 27, 2024 in follow-up on the selective care unit. She has since undergone decortication of the loculated fluid in her right chest on November 24, 2024. Right sided chest tube remains in place. Pleur-evac to wall suction. Still with a positive leak. Chest x-ray reveals slightly increased moderate size right hydropneumothorax with stable right chest tube. Similar right basilar patchy airspace opacities and consolidation concerning for atelectasis and/or infiltrate. Small similar pleural effusion. Follow-up pleural fluid cultures revealed no growth. White count 7.8. Hemoglobin 9.5. Platelets 477. Sodium 132. Potassium 3.5. Bicarb 32. BUN 10. Creatinine 0.57. Glucose 76. She continues to work with the incentive spirometer. She remains on bronchodilators. Antibiotics in the form of ceftriaxone. Heparin for DVT prophylaxis. Remains on IV diuretics. Currently in a -1.2 L balance. patient was seen today on 11/28/2024, patient continues to have right-sided chest tube in place, however needs to be pulled out about 3 cm since its not in the center of the loculated pleural effusion, and this is being done by thoracic surgery. Presently the patient is comfortable, not in distress, remains on antibiotics, and again she continues to have a bit of a trapped lung and loculated pneumothorax. Hoping by adjusting the chest tube, that may help expand the lung at the more. Patient continues to have an air leak. No labs today. Patient is afebrile and hemodynamically stable, on 2 L nasal cannula O2 sat is 95% Seen today on 11/30/2024, patient had bowel pleurodesis done yesterday, continues to have chest tube in place continues to have loculated right-sided p neumothorax, continues to have significant air leak. Patient however seems to be very comfortable and not in distress. Remains on antibiotics for her empyema, her white count responded well 8.19 hemoglobin 9.1 electrolytes are normal potassium is a bit low at 3.2 renal profile is normal Seen today on 12/01/2024, patient is doing well clinically and does not seem to be in distress, however continues to have a significant complicated issue with her persistent right-sided pneumothorax and trapped lung, patient is status post decortication she is also status post talc pleurodesis, continues to have an air leak, continues to be on oxygen, not making a dramatic improvement overall. Patient is now POD #7 Right thoracoscopy with decortication and single level intercostal nerve block. Status post day #2 instillation of talc slurry through the chest tube. Chest x-ray was reviewed today, again she continues to have a pneumothorax and continues to have airleak. CBC is basically normal except for hemoglobin of 8.7 electrolytes are normal BUN is 7 creatinine 0.47 patient was seen today on 12/02/2024, clinically the patient is doing well, asymptomatic, patient is now postoperative day #8 right thoracoscopy with decortication and postoperative day #3 instillation of talc slurry through the chest tube. No major change in the last 24 hours, the loculated pneumothorax may seem to be a bit smaller today, continues to have continuous airleak in spite of talc pleurodesis. Patient is comfortable not in distress. Remains on antibiotics for empyema Seen today on 12/03/2024, not much of the change continues to have airleak continues to have a loculated pneumothorax, as [id number] her chest x-ray which seems to show that her pneumothorax is even larger today. Patient is postoperative day #9 right thoracoscopy with decortication and postoperative day #4 instillation of talc through the chest tube. Clinically patient is comfortable, not in distress. Remains on antibiotics for empyema. Progress note dated 12/04/2024. 69-year-old female who is now been in the hospital for 27 days. I saw her last on November 19, 2024. The patient had a decortication, on November 24. She is currently on 2 L. She does have a leak from the right sided chest tube. Initially, she had a pigtail catheter placed on November 14. She continues on Rocephin and Flagyl. She actually did have a talc pleurodesis, performed by the thoracic surgeon. Clinically, she looks relatively stable. She sitting in a chair next to the hospital bed. No respiratory distress. Laboratory data includes a white count 8.3, hemoglobin 8.8, hematocrit 27.2, and a normal platelet count. Sodium 135, potassium 4, chloride 98, CO2 33, BUN 11, creatinine 0.6. Glucose is 78. Calcium 8.3, magnesium 1.6. Progress note dated December 05, 2024. 69-year-old female seen again in room 360. The patient has not been here in the hospital for 28 days. She continues on 2 L nasal cannula. She is getting saline at 10 cc an hour. She has a right chest tube in place, which has an ongoing leak. Clinically, she is sitting in a chair, next to the hospital bed. She is awake and alert. No respiratory distress or difficulty. Current labs include a white count of 8.2, hemoglobin 9.1, hematocrit 28.1, and platelet count of 534,000. Sodium 134, potassium 4.2, chlorides 103, CO2 31, BUN 12, creatinine 0.65. Glucose is 108. Calcium 8, and magnesium 2.0. Chest x-ray shows similar to improving right lower lobe loculated pneumothorax. There is a right lower lobe infiltrate as well. Progress note dated December 06, 2024. 69-year-old female seen today in room 360. The patient has not been in the hospital for 29 days. She is a right sided chest tube in place. She is on room air. She is not receiving any IV fluids. The chest tube on the right, has a persistent air leak. The patient is feeling well, sitting in a chair next to the hospital bed. She denies any shortness of breath. She is awake and alert. No chest pain or chest discomfort. No new labs today. Progress note dated December 07, 2024. 69-year-old female again seen today in room 360. Currently she is on room air. She is sitting in the chair next to the hospital bed. She is not receiving any IV fluids. Right chest tube is still in place. She has an ongoing leak. Clinically, she looks very stable. She is not complaining of shortness of breath, or difficulty breathing. Labs include a white count of 6.3, hemoglobin 9, hematocrit 28.5, and a platelet count of 334,000. Sodium 134, potassium 4.2, chlorides 102, CO2 31, BUN 12, creatinine 0.58. Glucose is 84. Calcium is 7.8. Chest x-ray dated December 07, shows hydropneumothorax on the right, but otherwise, the chest x-ray is largely unchanged. Progress note dated December 08, 2024. 69-year-old female who is now been in the hospital for 31 days. She is currently on room air. She is on saline at 20 cc an hour. The patient may be going to the operating room today, pending the results of the chest x-ray done at noon. Her chest tube was taken off of suction, placed to waterseal. No new labs today as yet. Chest x-ray today shows a stable loculated right basilar pneumothorax with hydropneumothorax, with chest tube in place. Progress note dated December 09, 2024. 69-year-old female, seen today in room 360. The patient has not been in the hospital for 30 days. Currently, she is on room air. She is getting lactated Ringer's at 20 cc an hour. The patient was to have surgery yesterday, but ended up not having any surgery. The chest tube has been removed this morning. Currently, she is resting comfortably in bed. A follow-up chest x-ray is ordered. Clinically, she is doing well. She is awake and alert. No respiratory difficulty or distress. No new labs today. Chest x-ray this morning, shows right lower lobe infiltrate. Objective - Vital Signs Vital signs: Vital Signs Temp 97.8 F 12/09/24 09:08 Pulse 88 12/09/24 09:12 Resp 18 12/09/24 09:08 BP 110/62 12/09/24 09:08 Pulse Ox 100 12/09/24 09:08 FiO2 21 12/07/24 08:44 Intake & Output 12/08/24 12/09/24 12/09/24 18:59 06:59 18:59 Intake Total 250 Output Total 1100 0 Balance -1100 0 250 Weight 52.7 kg Intake: IV 10 Invasive Line 5 10 Oral 240 Output: Chest Tube Drainage 0 0 Chest Tube Right Upper 0 0 Posterior Chest Urine 1100 Other: Voiding Method Toilet Toilet # Bowel Movements 1 - Exam No acute distress, oriented 3. Currently on room air. HEENT examination is grossly unremarkable. Mucous membranes are moist. No oral lesions. Neck supple. Full range of motion. No adenopathy thyromegaly or neck vein distention. Cardiovascular examination reveals regular rhythm rate. S1-S2 normal. No S3 or S4. No discernible murmur noted. Lungs reveal diminished right basilar lung sounds. Mild scattered rhonchi. No wheezes or crackles. Abdomen soft bowel sounds are heard. No masses or tenderness. Extremities are intact. No cyanosis clubbing or edema. Skin is without rash or lesion. Neurologic examination is brief but nonfocal. - Labs CBC & Chem 7: 12/07/24 06:07 12/07/24 06:07 Labs: Abnormal Lab Results - Last 24 Hours (Table) 12/07/24 Range/Units 10:02 Reference Lab Result See [facility] REF Reports A Microbiology - Last 24 Hours (Table) 11/07/24 09:02 Fungal Culture - Final Lung - Right Assessment and Plan Assessment: Complicated right sided pleural effusion/exudate, fluid positive for Streptococcus intermedius. Right chest tube, removed, December 09, 2024. S/P decortication, 07/27/2024, with placement of a standard chest tube, and talc pleurodesis. Reinsertion of pigtail catheter, November 14, 2024. Status post right-sided thoracentesis. Acute hypoxemic respiratory failure. Acute leukocytosis, secondary to right pleural space infection. Plan: Plan dated November 14, 2024. The patient continues on antibiotics. The patient had a another pigtail catheter placed today by interventional radiology. Currently, the patient is on Flagyl, and Rocephin. She is not receiving any IV fluids. She is on 2 L nasal cannula. Labs, x-rays, and all medications are reviewed. We will continue to follow. The patient is currently not ready for discharge. Prognosis is guarded. Dictation was produced using [employer] software. Please excuse any grammatical, word or spelling errors. Plan dated November 15, 2024. The patient is seen today in room 360. She continues on nasal O2 2 L. She is not receiving any additional IV fluids. The patient continues on Rocephin, and Flagyl, for streptococcal infection. The right pigtail catheter is in place. The patient is receiving tPA, and alpha dornase, as per cardiothoracic surgery, to the right pleural space. Labs, x-rays, medications are reviewed. We will continue to follow the patient, and make recommendations where appropriate dictation was produced using [employer]ision software. Please excuse any grammatical, word or spelling errors. Plan dated November 16, 2024. The patient is again seen today in room 360. She continues on nasal O2 at 2 L. She is getting saline at 10 cc an hour. The right pigtail catheter is noted to be in place. Her chest x-ray is improved. She did receive tPA and alpha dornase, today, administered by cardiothoracic surgery. She continues on Miguel ephin and Flagyl. All labs, x-rays, and medications are reviewed. We will continue to follow make recommendations were appropriate. Dictation was produced using [employer] software. Please excuse any grammatical, word or spelling errors. Plan dated November 17, 2024. The patient is seen today in room 360. The patient is clinically improved, and radiographically improved. Right pigtail catheter remains in place. The patient remains both on Rocephin and Flagyl. The patient is currently on room air. No additional IV fluids. All labs, x-rays, and medications are reviewed. We will continue to follow the patient, make recommendations were appropriate. Prognosis is guarded. Dictation was produced using [employer] software. Please excuse any grammatical, word or spelling errors. Plan dated November 18, 2024. The patient is seen again in room 360. The patient is currently on room air. She is getting saline at 50 cc an hour. Right pigtail catheter in place. According to cardiothoracic surgery, no plans for installation of lytics, into the right pleural space. The patient was typically getting tPA, and alpha dornase. Labs, x-rays, and all medications are reviewed. The patient continues on Rocephin, and Flagyl. We will continue to follow make recommendations. Pro gnosis is guarded. Dictation was produced using [employer] software. Please excuse any grammatical, word or spelling errors. Plan dated November 19, 2024. The patient is seen today in room 360. She is laying flat in bed. No distress. She is currently on 2 L nasal cannula. She is not receiving any IV fluids. She was seen by cardiothoracic surgery. They are not planning to give her any more alpha dornase or tPA, through the right sided pigtail catheter. Clinically, the patient is very stable. We will continue to follow. X-rays, labs, and all medications are reviewed. Additional recommendations and suggestions are forthcoming. The patient continues on Rocephin and Flagyl. Prognosis is guarded. Dictation was produced using [employer] software. Please excuse any grammatical, word or spelling errors. Plan dated December 04, 2024. The patient was last seen on November 19, 2024. Since then, the patient has had a decortication performed on November 24, 2024. Pigtail catheter was removed, the patient received a standard chest tube. She also had talc pleurodesis on the right side. Unfortunately, she still has a leak. She is on 2 L nasal cannula. No respiratory distress. She continues on Rocephin and Flagyl. Overall prognosis remains guarded. She is a full code patient. We will continue to follow make recommendations were appropriate. All labs, x-rays, and medications are reviewed. Dictation was produced using [employer] software. Please excuse any grammatical, word or spelling errors. Plan dated December 05, 2024. 69-year-old female seen today in room 360. She remains on 2 L of oxygen. She is sitting in a chair next to the bed. No distress. No respiratory distress. The patient still has a right chest tube in place. She still has an ongoing leak, albeit smaller. Chest x-ray, labs, x-rays, and everything else is evaluated. Hopefully the patient will be ready for discharge in the next few days or so. We will continue to follow make recommendations. Prognosis is guarded. She continues on Rocephin, and Flagyl. No other recommendations are made. Dictation was produced using [employer] software. Please excuse any grammatical, word or spelling errors. Plan dated December 06, 2024. The patient is seen today in room 360. The patient has been weaned off of oxygen. She is sitting in the chair next to the hospital bed. He is not re ceiving any IV fluids. The patient has a right chest tube in place. The chest tube shows a persistent continuous airleak. Labs, x-rays, and medications are reviewed. We will continue to follow the patient, make recommendations. Overall prognosis remains guarded. Dictation was produced using [employer] software. Please excuse any grammatical, word or spelling errors. Plan dated December 07, 2024. The patient is seen today in room 360. Clinically, the patient is doing well. She is sitting in a chair next to the hospital bed. She is not requiring any supplemental oxygen. She is not receiving any IV fluids. The right chest tube is still in place, and does have a ongoing/continuous leak. Labs, x-rays, and medications are reviewed. We will continue to follow the patient, make r ecommendations. Overall prognosis remains guarded. Dictation was produced using [employer] software. Please excuse any grammatical, word or spelling errors. Plan dated December 08, 2024. Cardiothoracic surgery, saw the patient, I decided to remove remove the chest tube off of suction. The plan was to get a chest x-ray at about 12 or 1230 today, and make a decision about a VATS procedure. Labs, x-rays, medications are reviewed. We will continue to follow the patient. The patient looks very clinically stable. She is on room air. She is sitting in a chair next to the hospital bed. Labs, x-rays, and medications are reviewed. We will continue to follow. Dictation was produced using [employer] software. Please excuse any grammatical, word or spelling errors. Plan dated December 09, 2024. The patient is seen today in room 360. The patient was to have an operation yesterday, but it was decided, that the patient was doing better, and no operation took place. Currently, she is sitting in the room, room 360, on room air. She is getting lactated Ringer's at 20 cc an hour. Her right sided chest tube, was removed today by cardiothoracic surgery. A follow-up chest x-ray was ordered. Labs, x-rays, and all medications are reviewed. Additional recommendations and suggestions are forthcoming. Hopeful discharge in the near future. Chest x-ray appears relatively stable. The follow-up chest x-ray since the chest tube has been removed, has not yet been done. Dictation was produced using [employer] dictation software. Please excuse any grammatical, word or spelling errors. Time with Patient: Less than 30
--- NOTE | 2024-12-09 15:35 | P.PN ---
Subjective Progress Note Date: 12/09/24 Principal diagnosis: Reason for follow-up is pneumonia/empyema Patient is a 69-year-old female with a past medical history significant for ulcer Raynaud's phenomena and osteoporosis presenting to the hospital for evaluation of right-sided chest pain and cough, patient be diagnosed with right-sided effusion history of empyema and pneumonia prompted this consultation.Patient is status post right thoracoscopy with decortication for right-sided empyema no OR culture procedure completed on 11/24/2024 Patient is status post installation of tunneled cath of the right pleural space for persistent air leak on 11/29/2024, chest tube was discontinued on 12/09/2024 On today's evaluation that is 12/10/2023, patient did have a temperature of 97.5 F this morning and denies having any chills, patient is on room air and breathing comfortably no chest pain or cough, the patient did not have any nausea vomiting abdominal pain or any diarrhea patient did have removal of the chest tube this morning. No new lab has been obtained today Objective - Vital Signs Vital signs: Vital Signs Temp 97.5 F L 12/09/24 11:38 Pulse 86 12/09/24 12:19 Resp 16 12/09/24 11:38 BP 101/63 12/09/24 11:38 Pulse Ox 94 L 12/09/24 11:38 FiO2 21 12/07/24 08:44 Intake & Output 12/08/24 12/09/24 12/09/24 18:59 06:59 18:59 Intake Total 378 Output Total 1100 0 300 Balance -1100 0 78 Weight 52.7 kg Intake: IV 20 Invasive Line 5 20 Oral 358 Output: Chest Tube Drainage 0 0 Chest Tube Right Upper 0 0 Posterior Chest Urine 1100 300 Other: Voiding Method Toilet Toilet # Bowel Movements 1 2 - Exam GENERAL DESCRIPTION: An elderly female up in the chair in no distress RESPIRATORY SYSTEM: Unlabored breathing , decreased breath sounds at bases HEART: S1 S2 regular rate and rhythm , ABDOMEN: Soft , no tenderness EXTREMITIES: Trace edema feet - Labs CBC & Chem 7: 12/07/24 06:07 12/07/24 06:07 Labs: Abnormal Lab Results - Last 24 Hours (Table) 12/07/24 Range/Units 10:02 Reference Lab Result See [facility] REF Reports A Microbiology - Last 24 Hours (Table) 11/07/24 09:02 Fungal Culture - Final Lung - Right Assessment and Plan (1) Sepsis Current Visit: Yes Status: Acute Code(s): A41.9 - SEPSIS, UNSPECIFIED ORGANISM SNOMED Code(s): 72188998 (2) Empyema lung Current Visit: Yes Status: Acute Code(s): J86.9 - PYOTHORAX WITHOUT FISTULA SNOMED Code(s): 30440600 (3) Pneumonia Current Visit: Yes Status: Acute Code(s): J18.9 - PNEUMONIA, UNSPECIFIED ORGANISM SNOMED Code(s): 753763126 Plan: 1patient presented to hospital with sepsis in this patient who did have tachypnea and tachycardia elevated white count as well as elevated lactic acid meeting criteria for SIRS/sepsis source is right-sided pneumonia with a question of postobstructive and a possible component of empyema likely community-acquired pathogen in this patient with no history of recent antibiotic exposure or flulike symptoms 2-patient pleural fluid culture currently growing Streptococcus intermedius micro lab unable to do sensitivity as reported organism not growing 3patient did have repeat CT of the chest on 11/20/2024 concerning for persistent effusion and consolidation, the patient status post right-sided thoracoscopy and decortication completed on 11/24/2024 no OR culture 4patient is afebrile and white count has normalized, patient did have removal of the chest tube 12/09/[address] surgery 5patient to continue with Rocephin and Flagyl while inpatient however no need for IV antibiotics on discharge Dictation was produced using [employer] dictation software. please excuse any grammatical, word or spelling errors. Time with Patient: Less than 30
--- NOTE | 2024-12-10 06:57 | XR ---
EXAMINATION TYPE: XR chest 1V portable DATE OF EXAM: 12/10/2024 COMPARISON: 12/09/2024 CLINICAL INDICATION: Female, 69 years old with history of Postop right VATS; TECHNIQUE: Single frontal view of the chest is obtained. FINDINGS: There is no change in the right loculated pneumothorax. There is no change in the right low er lobe interstitial and alveolar infiltrate. There is no change in the diffuse chronic interstitial opacity in both lungs. There is no left-sided pneumothorax or pleural effusion. The heart size is normal. The osseous struct ures are intact. IMPRESSION: 1. No change in the loculated right pneumothorax. 2. No change in the diffuse chronic interstitial opacity. [facility], , 12/10/2024 6:54 AM
--- NOTE | 2024-12-10 07:57 | P.PN ---
Subjective Progress Note Date: 12/10/24 Principal diagnosis: Right basilar masslike consolidation, right loculated effusion, leukocytosis, hyponatremia. History of gastric ulcer, raynaud's, distant remote history of smoking POD #16 Right thoracoscopy with decortication and single level intercostal nerve block. Status post day #11 instillation of talc slurry through the chest tube performed by Dr. Laureano. The patient was seen and examined at her bedside on the third floor cardiac stepdown unit today December 10, 2024. She is currently sitting up to the bedside chair, is tolerating her breakfast, is awake, alert, oriented x 3 and is in no acute apparent distress. Denies any complaints of pain or shortness of breath at this time. She states that she is anxious to be discharged home. Oxygen saturations are 92% on room air and she is achieving 1250 mL on her incentive spirometry with encouragement. Her right pleural chest tube was removed without incident yesterday December 09, 2024. Chest x-ray results reviewed this morning, with chest x-ray results showing no change in the loculated right pneumothorax, and no change in the diffuse chronic interstitial opacity. Objective - Vital Signs Vital signs: Vital Signs Temp 98.3 F 12/10/24 07:43 Pulse 81 12/10/24 07:43 Resp 16 12/10/24 07:43 BP 99/63 12/10/24 07:43 Pulse Ox 92 L 12/10/24 07:43 FiO2 21 12/07/24 08:44 Intake & Output 12/09/24 12/10/24 12/10/24 18:59 06:59 18:59 Intake Total 618 20 Output Total 300 600 Balance 318 -580 Weight 53 kg Intake: IV 20 20 Invasive Line 5 20 20 Oral 598 Output: Urine 300 600 Other: Voiding Method Toilet Toilet # Bowel Movements 2 - Exam CONSTITUTIONAL: Appears comfortable, cooperative, no acute distress. RESPIRATORY: Lungs sounds diminished in the bases bilaterally, right greater than left. Respirations symmetrical, nonlabored. Currently on room air with oxygen saturation 92%, achieving 1250 mL on her incentive spirometry. Strong cough. CARDIOVASCULAR: S1, S2 present. Regular rate and rhythm. Remote telemetry showing sinus rhythm. Palpable peripheral pulses bilaterally. No edema present. No calf pain or tenderness noted. SCDs present. GASTROINTESTINAL: Abdomen soft, nontender, nondistended. Active bowel sounds present 4 quadrants. Tolerating diet. Passing flatus. GENITOURINARY: Continues to void. INTEGUMENTARY: Skin is warm and dry with with no clubbing or cyanosis present. Right chest thoracic incisions clean, dry and approximated. Chest tube site dressing remains clean, dry and intact. NEUROLOGIC: Cranial nerves II through XII intact. No focal deficits. MUSKULOSKELETAL: Able to move all extremities, strength equal bilaterally. PSYCHIATRIC: Alert and oriented to person place and time. - Allied health notes Allied health notes reviewed: nursing - Labs CBC & Chem 7: 12/07/24 06:07 12/07/24 06:07 - Imaging and Cardiology Chest x-ray: report reviewed, image reviewed Assessment and Plan Assessment: Right basilar masslike consolidation Right loculated effusion, complicated, related to infection, status post right thoracoscopy with decortication Leukocytosis Hyponatremia Chest pain, cough with sputum secondary to above Recent 8 pound weight loss over 6 weeks Prolonged airleak greater than 5 days History of gastric ulcer Raynaud's Distant remote history of smoking Plan: Continue to encourage use of incentive spirometry 10 times every hour while awake. Increase activity as tolerated. Medical management of other comorbidities per internal medicine, pulmonology and infectious disease. Continue to monitor daily chest x-rays. More recommendations to follow based on patient's clinical course. Time with Patient: Less than 30
--- NOTE | 2024-12-10 11:27 | P.PN ---
Subjective Progress Note Date: 12/10/24 Principal diagnosis: Sepsis. 69-year-old female presenting the emergency department last night with a chief complaint of right upper quadrant abdominal pain with radiation to the right back. Ongoing for the last 2 days. Workup in the emergency department including abdominal/pelvis CT which does not show any acute intra-abdominal process. Remarkable for right middle lobe cystic lesion and moderate to large right-sided pleural effusion. Follow-up chest CTA did not show any evidence of pulmonary embolism. Right basilar masslike consolidation measuring 5.4 x 5.8 cm, concerning for possible malignancy. Additional surrounding airspace consolidation, possibly superimposed pneumonia. Large right-sided pleural effusion noted. Severe centrilobular emphysematous changes. Labs remarkable for a CBC with a WBC count of 62.7, hemoglobin 13.4, platelets 801. CMP with a sodium 130, potassium 5, chloride 95, serum bicarb 24, BUN 28, creatinine 0.88, glucose 105. Lactate 2.7 down to 1.1. AST 57, ALT 26, ALP 268. Troponins less than 0.012. NT proBNP 467. Lipase 26. Patient currently being evaluated in emergency department. She is resting comfortably on 2 L/min nasal cannula. SpO2 reading 98%. Again endorses above-mentioned right upper quadrant pain with radiation to the right thoracic level back. Previously, rated 9 out of 10 on a 10 point numerical scale. Started approximately 2 days ago. Denies any nausea, vomiting, change in bowel movements, diarrhea. Does endorse previous congested cough without much sputum production. Denies any significant purulent sputum or hemoptysis. Denies any fevers, chills. No previously diagnosed COPD. She is a former tobacco smoker, quit approximately 9 years ago. Prior to this, she smoked 1 pack, which lasted for almost a month. No family or personal history of lung cancer. No significant unintentional weight loss. No recent outpatient treatments for pneumonias. Her primary care provider is Dr. Muñoz. Given empiric doses of azithromycin, Rocephin, Flagyl, and vancomycin in the ED. Afebrile. Normal saline infusing at 130 mL/h. Nontoxic appearance. Hemodynamic stable. The patient is seen today November 08, 2024 in follow-up on the regular medical floor. She is currently sitting up in bed. Awake and alert in no acute distress. Maintaining good O2 saturations in the 90s on 2 L/min per nasal cannula. She did have a right sided pigtail catheter placed yesterday. She als o had a thoracentesis performed yesterday. She continues with hazy yellow output. Her pleural fluid was exudate with a protein of 3.6 and an LDH greater than 2500. Procalcitonin was 2.74. She is currently on Unasyn. Chest x-ray continues to show ongoing moderate to large right pleural effusion with underlying atelectasis and/or consolidation. Minimally decreased compared to previous. Pleural fluid cultures are pending. White count 26.2. Hemoglobin 11.2. Platelets 544. Sodium 134. Potassium 3.7. Bicarb 23. BUN 14. Creatinine 0.52. Viral screen was negative for influenza A/B, RSV, COVID. The patient is seen today November 09, 2024 in follow-up on the regular medical floor. She is awake and alert in no acute distress. She did have some issues with desaturations earlier this morning with minimal activity. Chest x-ray shows worsening left-sided pleural effusion which is now moderate. She is currently maintaining good O2 saturations in the mid 90s on 5 L high flow nasal cannula. She is afebrile. Hemodynamically stable. She did have lytics instilled into the pigtail catheter yesterday. A total of 1420 mL have been returned since. Additional lytics will be instilled today per CT service. She continues to work well with the incentive spirometer. She remains on Unasyn. Pleural fluid cultures pending. Cytology pending. White count 38.6. Hemoglobin 11.5. Platelets 605. Seen today on 11/10/2024, patient is feeling better, breathing easier, chest x- ray is not showing much improvement on the right side pleural effusion. Still undergoing lytic therapy. May have to consider repeat CT of the chest in the next couple of days. Clinically however the patient is doing well, remains on antibiotics, cytology from the pleural effusion came back negative, cultures remain negative, still the differential diagnosis includes malignancy and/or parapneumonic complicated pleural effusion. Patient was seen today on 11/11/2024, patient is doing well, unfortunately angelo fontaine pulled out her pigtail catheter accidentally, and no more lytic therapy could be given for this patient at this point, the chest x-ray is showing improvement, but her initial CT of the chest raised the possibility of malignancy/lung mass, I will go ahead and recommend repeat CT of the chest now for follow-up on the initially abnormal CT of the chest. Clinically I did not believe the patient had lung mass, I felt she had masslike consolidation. And may have resolved based on the fact that the patient has been receiving lytic therapy for her complicated right-sided pleural effusion. The pleural effusion was negative for malignancy. And it was negative for active infection as the cultures have been negative. Patient was seen today on 11/12/2024, patient seems to be comfortable, not in distress, continues to have leukocytosis with WBC count of 24,000, continues to have a right middle lobe cystic lesion, exact etiology is not clear, strongly doubt malignancy I believe is most likely a bulla filled with fluid. Or could represent retained secretions and airway. CT of the chest showed hydropneumothorax, I believe the patient may benefit eventually either from placement of pigtail catheter again or decortication if thoracic surgery is willing. May also require bronchoscopy and biopsy or evaluation of the right middle lobe. At this point in time we are continuing antibiotics, and we need to readdress that pigtail catheter again on Wednesday. Patient was seen today on 11/13/2024, patient is comfortable, not in distress, on nasal cannula patient is supposed to have placement of pigtail catheter again tomorrow for lytic therapy. In the meantime remains on antibiotics, continues to have loculated pleural effusion, and the fluid came back positive for Streptococcus intermedius. Continues to have leukocytosis with WC count of 24.0 hemoglobin 10.3. Patient is on 2 L nasal cannula and O2 sat is 91 to 94% Progress note dated November 14, 2024. 69-year-old female seen today in room 360. She is awake and alert. She is resting comfortably in bed. The patient currently is on Rocephin and Flagyl. She is on 2 L nasal cannula. No IV fluids. The pigtail catheter will be replaced today. She continues to be followed by cardiothoracic surgery. Laboratory data includes a white count of 18.8, hemoglobin 10.6, hematocrit 31.4, and a platelet count of 506,000. Sodium 134, potassium 3.8, chlorides 106, CO2 22, BUN 7, creatinine 0.49. Glucose is 70. Albumin 1.7. Pleural fluid cultures were positive for Streptococcus intermedius. Chest x-ray shows a persistent right basilar opacity/effusion. Progress note dated November 15, 2024. 69-year-old female seen today in room 360. The patient is resting comfortably in bed. She is currently on 2 L. No IV fluids. She has a right pigtail catheter in place. She is receiving both Rocephin and Flagyl, for streptococcal infection. The patient is receiving tPA, and alpha dornase, as per cardiothoracic surgery. Clinically, she is feeling well. She is awake and alert. No respiratory distress. No new laboratory data today. Chest x-ray shows a right basilar pleural catheter. Right sided pleural effusion has diminished. Progress note dated November 16, 2024. 69-year-old female seen today in room 360. She is sitting up in bed. She is alert and awake. No acute distress. She is continues on nasal O2 at 2 L. She is getting saline at 10 cc an hour. Her right pigtail catheter continues to function. She did receive tPA and alpha dornase today, via cardiothoracic surgery. The patient continues on Rocephin and Flagyl. No new laboratory data today. Chest x-ray today, November 16, shows diminished right lower lobe fluid collection. Drainage catheter, is noted. Progress note dated November 17, 2024. 69-year-old female seen again in room 360. She sitting in the chair next to the hospital bed. She is on room air. She continues on Rocephin and Flagyl. The patient did receive tPA, and alpha dornase today, administered by cardiothoracic surgery. Her chest x-ray continues to show improvement. Clinically, she is very stable. She has a right sided pigtail catheter in place. White count of 17.5, hemoglobin 10.5, hematocrit 30.8, platelet count 703,000. Sodium 133, potassium 4.1, chlorides 108, CO2 23, BUN 3, creatinine 0.56. Glucose is 100. Calcium is 7.0. Albumin is 1.7. Pleural fluid back from November 07, is positive for Streptococcus species. Chest x-ray shows improving right-sided opacities. Progress note dated November 18, 2024. 69-year-old female seen today in room 360. The patient is resting comfortably in bed. She is awake and alert. She is on room air. She is getting saline at 50 cc an hour. Cardiothoracic surgery is not planning to place any lytics, through her right sided pigtail catheter today. Currently, the patient is without complaints. Current laboratory data includes a sodium 135, potassium 5.4, chlorides 111, CO2 19, BUN 6, creatinine 0.57. Calcium is 7.4. Pleural fluid cultures were positive for Streptococcus intermedius. Chest x-ray is essentially unchanged. Progress note dated November 19, 2024. 69-year-old female seen today in room 360. She is lying in bed. She will not receive any tPA or alpha dornase today. She is on 2 L. No IV fluids. Clinically, she looks comfortable. She is in no acute distress. She is not coughing or short of breath. Today's labs include a white count of 14.1, hemoglobin 10.8, hematocrit 32.2, and a platelet count of 675,000. Sodium 136, potassium 4.1, chlorides 110, CO2 20, BUN 7, creatinine 0.58. Pleural fluid cultures were positive for Streptococcus intermedius. Chest x-ray reveals a right sided pleural effusion. Right pigtail catheter is unchanged. Some atelectasis is noted at the bases as well. The patient is seen today November 27, 2024 in follow-up on the selective care unit. She has since undergone decortication of the loculated fluid in her right chest on November 24, 2024. Right sided chest tube remains in place. Pleur-evac to wall suction. Still with a positive leak. Chest x-ray reveals slightly increased moderate size right hydropneumothorax with stable right chest tube. Similar right basilar patchy airspace opacities and consolidation concerning for atelectasis and/or infiltrate. Small similar pleural effusion. Follow-up pleural fluid cultures revealed no growth. White count 7.8. Hemoglobin 9.5. Platelets 477. Sodium 132. Potassium 3.5. Bicarb 32. BUN 10. Creatinine 0.57. Glucose 76. She continues to work with the incentive spirometer. She remains on bronchodilators. Antibiotics in the form of ceftriaxone. Heparin for DVT prophylaxis. Remains on IV diuretics. Currently in a -1.2 L balance. patient was seen today on 11/28/2024, patient continues to have right-sided chest tube in place, however needs to be pulled out about 3 cm since its not in the center of the loculated pleural effusion, and this is being done by thoracic surgery. Presently the patient is comfortable, not in distress, remains on antibiotics, and again she continues to have a bit of a trapped lung and loculated pneumothorax. Hoping by adjusting the chest tube, that may help expand the lung at the more. Patient continues to have an air leak. No labs today. Patient is afebrile and hemodynamically stable, on 2 L nasal cannula O2 sat is 95% Seen today on 11/30/2024, patient had bowel pleurodesis done yesterday, continues to have chest tube in place continues to have loculated right-sided p neumothorax, continues to have significant air leak. Patient however seems to be very comfortable and not in distress. Remains on antibiotics for her empyema, her white count responded well 8.19 hemoglobin 9.1 electrolytes are normal potassium is a bit low at 3.2 renal profile is normal Seen today on 12/01/2024, patient is doing well clinically and does not seem to be in distress, however continues to have a significant complicated issue with her persistent right-sided pneumothorax and trapped lung, patient is status post decortication she is also status post talc pleurodesis, continues to have an air leak, continues to be on oxygen, not making a dramatic improvement overall. Patient is now POD #7 Right thoracoscopy with decortication and single level intercostal nerve block. Status post day #2 instillation of talc slurry through the chest tube. Chest x-ray was reviewed today, again she continues to have a pneumothorax and continues to have airleak. CBC is basically normal except for hemoglobin of 8.7 electrolytes are normal BUN is 7 creatinine 0.47 patient was seen today on 12/02/2024, clinically the patient is doing well, asymptomatic, patient is now postoperative day #8 right thoracoscopy with decortication and postoperative day #3 instillation of talc slurry through the chest tube. No major change in the last 24 hours, the loculated pneumothorax may seem to be a bit smaller today, continues to have continuous airleak in spite of talc pleurodesis. Patient is comfortable not in distress. Remains on antibiotics for empyema Seen today on 12/03/2024, not much of the change continues to have airleak continues to have a loculated pneumothorax, as [id number] her chest x-ray which seems to show that her pneumothorax is even larger today. Patient is postoperative day #9 right thoracoscopy with decortication and postoperative day #4 instillation of talc through the chest tube. Clinically patient is comfortable, not in distress. Remains on antibiotics for empyema. Progress note dated 12/04/2024. 69-year-old female who is now been in the hospital for 27 days. I saw her last on November 19, 2024. The patient had a decortication, on November 24. She is currently on 2 L. She does have a leak from the right sided chest tube. Initially, she had a pigtail catheter placed on November 14. She continues on Rocephin and Flagyl. She actually did have a talc pleurodesis, performed by the thoracic surgeon. Clinically, she looks relatively stable. She sitting in a chair next to the hospital bed. No respiratory distress. Laboratory data includes a white count 8.3, hemoglobin 8.8, hematocrit 27.2, and a normal platelet count. Sodium 135, potassium 4, chloride 98, CO2 33, BUN 11, creatinine 0.6. Glucose is 78. Calcium 8.3, magnesium 1.6. Progress note dated December 05, 2024. 69-year-old female seen again in room 360. The patient has not been here in the hospital for 28 days. She continues on 2 L nasal cannula. She is getting saline at 10 cc an hour. She has a right chest tube in place, which has an ongoing leak. Clinically, she is sitting in a chair, next to the hospital bed. She is awake and alert. No respiratory distress or difficulty. Current labs include a white count of 8.2, hemoglobin 9.1, hematocrit 28.1, and platelet count of 534,000. Sodium 134, potassium 4.2, chlorides 103, CO2 31, BUN 12, creatinine 0.65. Glucose is 108. Calcium 8, and magnesium 2.0. Chest x-ray shows similar to improving right lower lobe loculated pneumothorax. There is a right lower lobe infiltrate as well. Progress note dated December 06, 2024. 69-year-old female seen today in room 360. The patient has not been in the hospital for 29 days. She is a right sided chest tube in place. She is on room air. She is not receiving any IV fluids. The chest tube on the right, has a persistent air leak. The patient is feeling well, sitting in a chair next to the hospital bed. She denies any shortness of breath. She is awake and alert. No chest pain or chest discomfort. No new labs today. Progress note dated December 07, 2024. 69-year-old female again seen today in room 360. Currently she is on room air. She is sitting in the chair next to the hospital bed. She is not receiving any IV fluids. Right chest tube is still in place. She has an ongoing leak. Clinically, she looks very stable. She is not complaining of shortness of breath, or difficulty breathing. Labs include a white count of 6.3, hemoglobin 9, hematocrit 28.5, and a platelet count of 334,000. Sodium 134, potassium 4.2, chlorides 102, CO2 31, BUN 12, creatinine 0.58. Glucose is 84. Calcium is 7.8. Chest x-ray dated December 07, shows hydropneumothorax on the right, but otherwise, the chest x-ray is largely unchanged. Progress note dated December 08, 2024. 69-year-old female who is now been in the hospital for 31 days. She is currently on room air. She is on saline at 20 cc an hour. The patient may be going to the operating room today, pending the results of the chest x-ray done at noon. Her chest tube was taken off of suction, placed to waterseal. No new labs today as yet. Chest x-ray today shows a stable loculated right basilar pneumothorax with hydropneumothorax, with chest tube in place. Progress note dated December 09, 2024. 69-year-old female, seen today in room 360. The patient has not been in the hospital for 30 days. Currently, she is on room air. She is getting lactated Ringer's at 20 cc an hour. The patient was to have surgery yesterday, but ended up not having any surgery. The chest tube has been removed this morning. Currently, she is resting comfortably in bed. A follow-up chest x-ray is ordered. Clinically, she is doing well. She is awake and alert. No respiratory difficulty or distress. No new labs today. Chest x-ray this morning, shows right lower lobe infiltrate. Progress note dated December 10, 2024. 69-year-old female again seen in room 360. The patient is sitting in a chair next to the hospital bed. She is in no distress. She is on room air. She continues on Rocephin. The patient's chest x-ray today shows a larger right- sided hydropneumothorax. Again, the patient is asymptomatic. No new labs today. Chest x-ray has been reviewed. Objective - Vital Signs Vital signs: Vital Signs Temp 98.3 F 12/10/24 07:43 Pulse 84 12/10/24 08:12 Resp 16 12/10/24 07:43 BP 99/63 12/10/24 07:43 Pulse Ox 92 L 12/10/24 08:04 FiO2 21 12/07/24 08:44 Intake & Output 12/09/24 12/10/24 12/10/24 18:59 06:59 18:59 Intake Total 618 20 432 Output Total 300 600 200 Balance 318 -580 232 Weight 53 kg Intake: IV 20 20 10 Invasive Line 5 20 20 10 Oral 598 422 Output: Urine 300 600 200 Other: Voiding Method Toilet Toilet Toilet # Bowel Movements 2 1 - Exam No acute distress, oriented 3. Currently on room air. HEENT examination is grossly unremarkable. Mucous membranes are moist. No oral lesions. Neck supple. Full range of motion. No adenopathy thyromegaly or neck vein distention. Cardiovascular examination reveals regular rhythm rate. S1-S2 normal. No S3 or S4. No discernible murmur noted. Lungs reveal diminished right basilar lung sounds. Mild scattered rhonchi. No wheezes or crackles. Abdomen soft bowel sounds are heard. No masses or tenderness. Extremities are intact. No cyanosis clubbing or edema. Skin is without rash or lesion. Neurologic examination is brief but nonfocal. - Labs CBC & Chem 7: 12/07/24 06:07 12/07/24 06:07 Assessment and Plan Assessment: Complicated right sided pleural effusion/exudate, fluid positive for Streptococcus intermedius. Right chest tube, removed, December 09, 2024. S/P decortication, 07/27/2024, with placement of a standard chest tube, and talc pleurodesis. Reinsertion of pigtail catheter, November 14, 2024. Status post right-sided thoracentesis. Acute hypoxemic respiratory failure. Acute leukocytosis, secondary to right pleural space infection. Plan: Plan dated November 14, 2024. The patient continues on antibiotics. The patient had a another pigtail catheter placed today by interventional radiology. Currently, the patient is on Flagyl, and Rocephin. She is not receiving any IV fluids. She is on 2 L nasal cannula. Labs, x-rays, and all medications are reviewed. We will continue to follow. The patient is currently not ready for discharge. Prognosis is guarded. Dictation was produced using Managed by [employer] software. Please excuse any grammatical, word or spelling errors. Plan dated November 15, 2024. The patient is seen today in room 360. She continues on nasal O2 2 L. She is not receiving any additional IV fluids. The patient continues on Rocephin, and Flagyl, for streptococcal infection. The right pigtail catheter is in place. The patient is receiving tPA, and alpha dornase, as per cardiothoracic surgery, to the right pleural space. Labs, x-rays, medications are reviewed. We will continue to follow the patient, and make recommendations where appropriate dictation was produced using Managed by [employer] software. Please excuse any grammatical, word or spelling errors. Plan dated November 16, 2024. The patient is again seen today in room 360. She continues on nasal O2 at 2 L. She is getting saline at 10 cc an hour. The right pigtail catheter is noted to be in place. Her chest x-ray is improved. She did receive tPA and alpha dornase, today, administered by cardiothoracic surgery. She continues on Rocephin and Flagyl. All labs, x-rays, and medications are reviewed. We will continue to follow make recommendations were appropriate. Dictation was produced using Managed by [employer] software. Please excuse any grammatical, word or spelling errors. Plan dated November 17, 2024. The patient is seen today in room 360. The patient is clinically improved, and radiographically improved. Right pigtail catheter remains in place. The patient remains both on Rocephin and Flagyl. The patient is currently on room air. No additional IV fluids. All labs, x-rays, and medications are reviewed. We will continue to follow the patient, make recommendations were appropriate. Prognosis is guarded. Dictation was produced using Managed by [employer] software. Please excuse any grammatical, word or spelling errors. Plan dated November 18, 2024. The patient is seen again in room 360. The patient is currently on room air. She is getting saline at 50 cc an hour. Right pigtail catheter in place. According to cardiothoracic surgery, no plans for installation of lytics, into the right pleural space. The patient was typically getting tPA, and alpha dornase. Labs, x-rays, and all medications are reviewed. The patient continues on Rocephin, and Flagyl. We will continue to follow make recommendations. Prognosis is guarded. Dictation was produced using Managed by [employer] software. Please excuse any grammatical, word or spelling errors. Plan dated November 19, 2024. The patient is seen today in room 360. She is laying flat in bed. No distress. She is currently on 2 L nasal cannula. She is not receiving any IV fluids. She was seen by cardiothoracic surgery. They are not planning to give her any more alpha dornase or tPA, through the right sided pigtail catheter. Clinically, the patient is very stable. We will continue to follow. X-rays, labs, and all medications are reviewed. Additional recommendations and suggestions are forthcoming. The patient continues on Rocephin and Flagyl. Prognosis is guarded. Dictation was produced using Managed by [employer] software. Please excuse any grammatical, word or spelling errors. Plan dated December 04, 2024. The patient was last seen on November 19, 2024. Since then, the patient has had a decortication performed on November 24, 2024. Pigtail catheter was removed, the patient received a standard chest tube. She also had talc pleurodesis on the right side. Unfortunately, she still has a leak. She is on 2 L nasal cannula. No respiratory distress. She continues on Rocephin and Flagyl. Overall prognosis remains guarded. She is a full code patient. We will continue to follow make recommendations were appropriate. All labs, x-rays, and medications are reviewed. Dictation was produced using Managed by [employer] software. Please excuse any grammatical, word or spelling errors. Plan dated December 05, 2024. 69-year-old female seen today in room 360. She remains on 2 L of oxygen. She is sitting in a chair next to the bed. No distress. No respiratory distress. The patient still has a right chest tube in place. She still has an ongoing leak, albeit smaller. Chest x-ray, labs, x-rays, and everything else is evaluated. Hopefully the patient will be ready for discharge in the next few days or so. We will continue to follow make recommendations. Prognosis is guarded. She continues on Rocephin, and Flagyl. No other recommendations are made. Dictation was produced using [employer] software. Please excuse any grammatical, word or spelling errors. Plan dated December 06, 2024. The patient is seen today in room 360. The patient has been weaned off of oxygen. She is sitting in the chair next to the hospital bed. He is not receiving any IV fluids. The patient has a right chest tube in place. The chest tube shows a persistent continuous airleak. Labs, x-rays, and medications are reviewed. We will continue to follow the patient, make recommendations. Overall prognosis remains guarded. Dictation was produced using [employer] software. Please excuse any grammatical, word or spelling errors. Plan dated December 07, 2024. The patient is seen today in room 360. Clinically, the patient is doing well. She is sitting in a chair next to the hospital bed. She is not requiring any supplemental oxygen. She is not receiving any IV fluids. The right chest tube is still in place, and does have a ongoing/continuous leak. Labs, x-rays, and medications are reviewed. We will continue to follow the patient, make recommendations. Overall prognosis remains guarded. Dictation was produced using [employer] software. Please excuse any grammatical, word or spelling errors. Plan dated December 08, 2024. Cardiothoracic surgery, saw the patient, I decided to remove remove the chest tube off of suction. The plan was to get a chest x-ray at about 12 or 1230 today, and make a decision about a VATS procedure. Labs, x-rays, medications are reviewed. We will continue to follow the patient. The patient looks very clinically stable. She is on room air. She is sitting in a chair next to the hospital bed. Labs, x-rays, and medications are reviewed. We will continue to follow. Dictation was produced using [employer] software. Please excuse any grammatical, word or spelling errors. Plan dated December 09, 2024. The patient is seen today in room 360. The patient was to have an operation yesterday, but it was decided, that the patient was doing better, and no operation took place. Currently, she is sitting in the room, room 360, on room air. She is getting lactated Ringer's at 20 cc an hour. Her right sided chest tube, was removed today by cardiothoracic surgery. A follow-up chest x-ray was ordered. Labs, x-rays, and all medications are reviewed. Additional recommendations and suggestions are forthcoming. Hopeful discharge in the near future. Chest x-ray appears relatively stable. The follow-up chest x-ray since the chest tube has been removed, has not yet been done. Dictation was produced using Man[employer] software. Please excuse any grammatical, word or spelling errors. Plan dated December 10, 2024. The patient was seen today in room 360. She is comfortable. She is on room air. She is sitting in the chair next to the hospital bed. The patient is chest x-ray, shows a larger right-sided hydropneumothorax. Chest tube was re moved on the . The patient is asymptomatic. She is hoping to be discharged soon. Will see what cardiothoracic surgery has to say. No new labs today. Dictation was produced using [employer] software. Please excuse any grammatical, word or spelling errors. Time with Patient: Less than 30
--- NOTE | 2024-12-10 16:18 | P.PN ---
Subjective Progress Note Date: 12/10/24 Principal diagnosis: Reason for follow-up is pneumonia/empyema Patient is a 69-year-old female with a past medical history significant for ulcer Raynaud's phenomena and osteoporosis presenting to the hospital for evaluation of right-sided chest pain and cough, patient be diagnosed with right-sided effusion history of empyema and pneumonia prompted this consultation.Patient is status post right thoracoscopy with decortication for right-sided empyema no OR culture procedure completed on 11/24/2024 Patient is status post installation of tunneled cath of the right pleural space for persistent air leak on 11/29/2024, chest tube was discontinued on 12/09/2024 On today's evaluation that is 12/10/2024, Patient is afebrile patient is currently on room air and denies having any shortness of breath, the patient denies any chest pain or cough, the patient denies any nausea vomiting did not have any abdominal pain and no diarrhea. No new lab has been repeated today Objective - Vital Signs Vital signs: Vital Signs Temp 97.7 F 12/10/24 15:46 Pulse 81 12/10/24 15:46 Resp 14 12/10/24 15:46 BP 97/56 12/10/24 15:46 Pulse Ox 94 L 12/10/24 15:46 FiO2 21 12/07/24 08:44 Intake & Output 12/09/24 12/10/24 12/10/24 18:59 06:59 18:59 Intake Total 618 20 672 Output Total 300 600 500 Balance 318 -580 172 Weight 53 kg Intake: IV 20 20 10 Invasive Line 5 20 20 10 Oral 598 662 Output: Urine 300 600 500 Other: Voiding Method Toilet Toilet Toilet # Bowel Movements 2 1 - Exam GENERAL DESCRIPTION: An elderly female up in the chair in no distress RESPIRATORY SYSTEM: Unlabored breathing , decreased breath sounds at bases HEART: S1 S2 regular rate and rhythm , ABDOMEN: Soft , no tenderness EXTREMITIES: Trace edema feet - Labs CBC & Chem 7: 12/07/24 06:07 12/07/24 06:07 Assessment and Plan (1) Sepsis Current Visit: Yes Status: Acute Code(s): A41.9 - SEPSIS, UNSPECIFIED ORGANISM SNOMED Code(s): 05548447 (2) Empyema lung Current Visit: Yes Status: Acute Code(s): J86.9 - PYOTHORAX WITHOUT FISTULA SNOMED Code(s): 81493728 (3) Pneumonia Current Visit: Yes Status: Acute Code(s): J18.9 - PNEUMONIA, UNSPECIFIED ORGANISM SNOMED Code(s): 113000127 Plan: 1patient presented to hospital with sepsis in this patient who did have tachypnea and tachycardia elevated white count as well as elevated lactic acid meeting criteria for SIRS/sepsis source is right-sided pneumonia with a question of postobstructive and a possible component of empyema likely community-acquired pathogen in this patient with no history of recent antibiotic exposure or flulike symptoms 2-patient pleural fluid culture currently growing Streptococcus intermedius micro lab unable to do sensitivity as reported organism not growing 3patient did have repeat CT of the chest on 11/20/2024 concerning for persistent effusion and consolidation, the patient status post right-sided thoracoscopy and decortication completed on 11/24/2024 no OR culture 4patient is afebrile and white count has normalized, patient did have removal of the chest tube 12/09/[address] surgery 5patient to continue with Rocephin and Flagyl while inpatient and will be no need for any of the antibiotics on discharge Sister at the bedside multiple question answered Dictation was produced using [employer] dictation software. please excuse any grammatical, word or spelling errors. Time with Patient: Less than 30
--- NOTE | 2024-12-10 23:39 | PN ---
PROGRESS NOTE DATE OF SERVICE: 12/08/2024 CHIEF COMPLAINT: Right-sided empyema. HISTORY OF PRESENT ILLNESS: This lady's status is about the same. Tube is still in place. It is slowly being advanced. She still has residual air and fluid on the right chest. REVIEW OF SYSTEMS: She is asymptomatic. She is not complaining of fever, chills, shortness of breath, pain, etc. PHYSICAL EXAMINATION: GENERAL: She remains pale and chronically ill in appearance. HEAD, EYES, EARS, NOSE, AND MOUTH: Normal. CHEST: Demonstrates breath sounds bilaterally and somewhat decreased at the right base. CARDIAC: Normal. ABDOMEN: Soft, nontender. IMPRESSION: Right-sided empyema and pneumothorax. PLAN: Continue with current monitoring until her tube is removed and she is able to be moved to rehab. MMODL / IJN: [id number] /
--- NOTE | 2024-12-10 23:54 | PN ---
PROGRESS NOTE CHIEF COMPLAINT: Status post VATS procedure and pleurodesis for right empyema and pneumothorax. HISTORY OF PRESENT ILLNESS: This lady is stable. There has been no interval change. PHYSICAL EXAMINATION: CHEST: Breath sounds are heard. GENERAL: She remains pale and somewhat asthenic. She has no complaints. IMPRESSION: Right pleural effusion and probable empyema. PLAN: Await for progression of the catheter to be removed from her chest, so her recovery can be moved forward. MMODL / IJN: [id number] /
--- NOTE | 2024-12-11 00:15 | PN ---
PROGRESS NOTE DATE OF SERVICE: 12/10/2024 CHIEF COMPLAINT: Right-sided empyema. HISTORY OF PRESENT ILLNESS: This lady continues to do fairly well. Catheter has now been removed. She will not require. Follow up to see if air or fluid should reaccumulate, status post her surgical intervention. REVIEW OF SYSTEMS: She has no complaints. PHYSICAL EXAMINATION: GENERAL: She is pale and she does look slightly dehydrated. CHEST: Decreased breath sounds at the right base. CARDIAC: Normal. IMPRESSION: Status post VATS procedure and pleurodesis with right-sided empyema. PLAN: Continue to follow until she is stable enough to be discharged and probably to rehab. MMODL / IJN: [id number] /
--- NOTE | 2024-12-11 07:21 | P.PN ---
Subjective Progress Note Date: 12/11/24 Principal diagnosis: Right basilar masslike consolidation, right loculated effusion, leukocytosis, hyponatremia. History of gastric ulcer, raynaud's, distant remote history of smoking POD #17 Right thoracoscopy with decortication and single level intercostal nerve block. Status post day #12 instillation of talc slurry through the chest tube performed by Dr. Laureano. The patient was seen and examined in follow-up today December 11, 2024 at her bedside on the third floor cardiac stepdown unit. She is currently sitting up to the bedside chair, is awake, alert, oriented x 3 and is in no acute apparent distress. Denies any complaints of pain or shortness of breath at this time. Oxygen saturations are 94% on room air and she is achieving 1250 mL on her incentive spirometry with encouragement. Her chest tube was removed without incident on Wednesday, December 09, 2024. He remains showing a loculated right hydropneumothorax. Remote telemetry showing normal sinus rhythm heart rate 77 bpm. Objective - Vital Signs Vital signs: Vital Signs Temp 97.8 F 12/11/24 04:00 Pulse 88 12/11/24 06:58 Resp 20 12/11/24 04:00 BP 102/61 12/11/24 04:00 Pulse Ox 91 L 12/11/24 04:00 FiO2 21 12/07/24 08:44 Intake & Output 12/10/24 12/11/24 12/11/24 18:59 06:59 18:59 Intake Total 894 Output Total 600 650 Balance 294 -650 Weight 52.2 kg Intake: IV 10 Invasive Line 5 10 Oral 884 Output: Urine 600 Urine/Stool Mix 650 Other: Voiding Method Toilet Toilet # Bowel Movements 1 - Exam CONSTITUTIONAL: Appears comfortable, cooperative, no acute distress. RESPIRATORY: Lungs sounds diminished in the bases bilaterally, right greater than left. Respirations symmetrical, nonlabored. Currently on room air with oxygen saturation 94%, achieving 1250 mL on her incentive spirometry. Strong cough. CARDIOVASCULAR: S1, S2 present. Regular rate and rhythm. Remote telemetry showing sinus rhythm, heart rate 77 bpm open. Palpable peripheral pulses bilaterally. No edema present. No calf pain or tenderness noted. SCDs present. GASTROINTESTINAL: Abdomen soft, nontender, nondistended. Active bowel sounds present 4 quadrants. Tolerating diet. Passing flatus. GENITOURINARY: Continues to void. INTEGUMENTARY: Skin is warm and dry with with no clubbing or cyanosis present. Right chest thoracic incisions clean, dry and approximated. NEUROLOGIC: Cranial nerves II through XII intact. No focal deficits. MUSKULOSKELETAL: Able to move all extremities, strength equal bilaterally. PSYCHIATRIC: Alert and oriented to person place and time. - Allied health notes Allied health notes reviewed: nursing - Labs CBC & Chem 7: 12/07/24 06:07 12/07/24 06:07 - Imaging and Cardiology Chest x-ray: report reviewed, image reviewed Assessment and Plan Assessment: Right basilar masslike consolidation Right loculated effusion, complicated, related to infection, status post right thoracoscopy with decortication Leukocytosis Hyponatremia Chest pain, cough with sputum secondary to above Recent 8 pound weight loss over 6 weeks Prolonged airleak greater than 5 days History of gastric ulcer Raynaud's Distant remote history of smoking Plan: Continue to encourage use of incentive spirometry 10 times every hour while awake. Increase activity as tolerated. May be discharged home per the cardiothoracic surgery service, when okay with admitting service and other consultants. Follow-up with Dr. Neal in 2 weeks postdischarge. Medical management of other comorbidities per internal medicine, pulmonology and infectious disease. We will continue to follow the patient on an as-needed basis, please reconsult if needed. More recommendations to follow based on patient's clinical course. Time with Patient: Less than 30
--- NOTE | 2024-12-11 07:44 | XR ---
EXAMINATION TYPE: XR chest 2V DATE OF EXAM: 12/11/2024 6:33 AM COMPARISON: 12/10/2024 CLINICAL INDICATION: Female, 69 years old with history of Postop right VATS with decortication, , TECHNIQUE: PA and lateral views FINDINGS: Heart normal size. Background mild hyperinflation. Atherosclerotic arch calcifications. There is a ri ght mid and lower lung hydropneumothorax. Right-sided pleural effusion now extends to the lower third chest level. Pneumothorax measures approximately 3 cm from the lateral margin, significantly changed . IMPRESSION: COPD with hydropneumothorax redemonstrated localized to the right mid to lower lung. Effusion small t o moderate in size is increasing. Pneumothorax measuring 3.0 cm to the lateral margin relatively unch anged. [facility], , 12/11/2024 7:41 AM
--- NOTE | 2024-12-11 18:15 | P.PN ---
Subjective Progress Note Date: 12/11/24 On 12/11/2024, the patient is being seen for a follow-up. The patient is currently on room air oxygen. She is postop the #17 following a right thoracoscopy and decortication and single level intercostal nerve block. The patient also had self sclerae infused into the right hemithorax of the chest tube. Repeat chest x-ray shows a loculated stable right-sided hydropneumothorax. The patient however is quite stable. No significant respiratory distress. No chest pain. No pleurisy. No hemoptysis. No recent labs are available from today. She remains on IV Rocephin and she is also on IV Lasix 20 mg IV push every 12 hours. She is on DuoNeb nebulizer treatments [id number] and she is utilizing her incentive spirometer. She is pulling approximately 1.2 L in incentive spirometer. No other significant issues over the past 24 hours. Objective - Vital Signs Vital signs: Vital Signs Temp 98.4 F 12/11/24 11:34 Pulse 88 12/11/24 12:10 Resp 14 12/11/24 11:34 BP 105/64 12/11/24 11:34 Pulse Ox 95 12/11/24 11:59 FiO2 21 12/07/24 08:44 Intake & Output 12/10/24 12/11/24 12/11/24 18:59 06:59 18:59 Intake Total 894 478 Output Total 600 650 400 Balance 294 -650 78 Weight 52.2 kg Intake: IV 10 Invasive Line 5 10 Oral 884 478 Output: Urine 600 Urine/Stool Mix 650 400 Other: Voiding Method Toilet Toilet Toilet # Bowel Movements 1 - Exam CONSTITUTIONAL: Appears comfortable, cooperative, no acute distress, currently on room air oxygen RESPIRATORY: Lungs sounds diminished in the right base. Surgical wound site is dry clean and intact in the right-sided chest tube has been removed CARDIOVASCULAR: S1, S2 present. Regular rate and rhythm. Palpable peripheral pulses bilaterally. Bilateral lower extremity edema present. No calf pain or tenderness noted. SCDs present. GASTROINTESTINAL: Abdomen soft, nontender, nondistended. Active bowel sounds present 4 quadrants. Tolerating diet. Positive bowel movement GENITOURINARY: Continues to void INTEGUMENTARY: Skin is warm and dry with evidence of good perfusion NEUROLOGIC: Cranial nerves II through XII intact MUSKULOSKELETAL: Able to move all extremities, strength equal bilaterally PSYCHIATRIC: Alert and oriented to person place and time - Labs CBC & Chem 7: 12/07/24 06:07 12/07/24 06:07 Assessment and Plan Plan: Complicated right sided pleural effusion/exudate, fluid positive for Streptococcus intermedius.The patient had initial pigtail catheter inserted with alteplase infusion into the right hemithorax with suboptimal response. Ultimately the patient required a thoracoscopy and decortication of the right lung and the patient is postop day #17. Right-sided chest tube has been removed and the patient continues to have a stable right-sided hydropneumothorax. The patient also had a follow-up pleurodesis of the right hemithorax. The right- sided chest tube was removed on 12/09/2024. Chest x-ray findings are stable. Oxygenation is stable and the patient is currently on room air oxygen Acute hypoxic respiratory failure, improved and the patient currently on room air oxygen. Acute leukocytosis, secondary to right pleural space infection. Plan: Improved and the patient's white cell count is normal Anemia of chronic disease Plan Continue supportive care Aggressive pulmonary toileting and utilize incentive spirometer DuoNeb neb treatments [id number] IV Solu-Medrol Heparin subcu for DVT prophylaxis IV Rocephin IV Lasix to optimize the volume status Will continue to follow. Time with Patient: Greater than 30
--- NOTE | 2024-12-11 19:47 | XR ---
EXAMINATION TYPE: XR wrist complete LT DATE OF EXAM: 12/11/2024 7:19 PM COMPARISON: None. CLINICAL INDICATION: Female, 69 years old with history of patient fell on left wrist, pain TECHNIQUE: 4 view(s) obtained. FINDINGS: There is a transverse fracture of the distal radial metaphysis. There is mild dorsal angulation of th e distal fracture fragment. No additional fractures are evident. Scaphoid appears intact. The joint spaces are preserved. IMPRESSION: 1. Transverse fracture distal metaphyseal radius with some dorsal angulation. [facility], , 12/11/2024 7:45 PM
--- NOTE | 2024-12-11 22:23 | P.PN ---
Subjective Progress Note Date: 12/11/24 Principal diagnosis: Reason for follow-up is pneumonia/empyema Patient is a 69-year-old female with a past medical history significant for ulcer Raynaud's phenomena and osteoporosis presenting to the hospital for evaluation of right-sided chest pain and cough, patient be diagnosed with right-sided effusion history of empyema and pneumonia prompted this consultation.Patient is status post right thoracoscopy with decortication for right-sided empyema no OR culture procedure completed on 11/24/2024 Patient is status post installation of tunneled cath of the right pleural space for persistent air leak on 11/29/2024, chest tube was discontinued on 12/09/2024 On today's evaluation that is 12/11/2024, patient has been afebrile, patient is breathing comfortably and is currently on room air, patient denies having any chest pain and cough, patient denies nausea vomiting or diarrhea and no abdominal pain. No new lab has been obtained today chest x-ray COPD with hydro pneumothorax localized to the right mid to lower lung effusion moderate in size and increasing Objective - Vital Signs Vital signs: Vital Signs Temp 98.4 F 12/11/24 11:34 Pulse 88 12/11/24 12:10 Resp 14 12/11/24 11:34 BP 105/64 12/11/24 11:34 Pulse Ox 95 12/11/24 11:59 FiO2 21 12/07/24 08:44 Intake & Output 12/10/24 12/11/24 12/11/24 18:59 06:59 18:59 Intake Total 894 478 Output Total 600 650 400 Balance 294 -650 78 Weight 52.2 kg Intake: IV 10 Invasive Line 5 10 Oral 884 478 Output: Urine 600 Urine/Stool Mix 650 400 Other: Voiding Method Toilet Toilet Toilet # Bowel Movements 1 - Exam GENERAL DESCRIPTION: An elderly female up in the chair in no distress RESPIRATORY SYSTEM: Unlabored breathing , decreased breath sounds at bases HEART: S1 S2 regular rate and rhythm , ABDOMEN: Soft , no tenderness EXTREMITIES: Trace edema feet - Labs CBC & Chem 7: 12/07/24 06:07 12/07/24 06:07 Assessment and Plan (1) Sepsis Current Visit: Yes Status: Acute Code(s): A41.9 - SEPSIS, UNSPECIFIED ORGANISM SNOMED Code(s): 60712363 (2) Empyema lung Current Visit: Yes Status: Acute Code(s): J86.9 - PYOTHORAX WITHOUT FISTULA SNOMED Code(s): 70356106 (3) Pneumonia Current Visit: Yes Status: Acute Code(s): J18.9 - PNEUMONIA, UNSPECIFIED ORGANISM SNOMED Code(s): 041486712 Plan: 1patient presented to hospital with sepsis in this patient who did have tachypnea and tachycardia elevated white count as well as elevated lactic acid meeting criteria for SIRS/sepsis source is right-sided pneumonia with a question of postobstructive and a possible component of empyema likely community-acquired pathogen in this patient with no history of recent antibiotic exposure or flulike symptoms 2-patient pleural fluid culture currently growing Streptococcus intermedius micro lab unable to do sensitivity as reported organism not growing 3patient did have repeat CT of the chest on 11/20/2024 concerning for persistent effusion and consolidation, the patient status post right-sided thoracoscopy and decortication completed on 11/24/2024 no OR culture 4patient is afebrile and white count has normalized, patient did have removal of the chest tube 12/09/[address] surgery 5patient has received adequate IV Rocephin we will switch her to oral Ceftin/Omnicef continue with oral Flagyl chest x-ray this morning shows increasing right-sided effusion CT surgery is following await their further recommendation Dictation was produced using [employer] dictation software. please excuse any grammatical, word or spelling errors.
[2024-12-12] MEDS: CEFDINIR 300 MG CAP PO SCH (09:28)
--- NOTE | 2024-12-12 10:25 | DS ---
DISCHARGE SUMMARY CHIEF COMPLAINT: Weakness and hypotension. HISTORY OF PRESENT ILLNESS AND PHYSICAL EXAM: Details of this lady's history and physical can be found in the initial workup. LABORATORY STUDIES: While she is in the hospital, she had laboratory studies, details of which can be found in the laboratory section of her chart. COURSE IN THE HOSPITAL: After admission, she was placed on bedrest and started on intravenous fluids and appropriate cultures were drawn. Her white count luis e steadily. There was evidence of a mass in the right lower lobe as well as in the liver. Turned out the lesion in the liver was probably an abscess. She developed a right pleural effusion, which was determined to be empyema. Chest tube was placed. Chest tube could not be removed without the effusion or the empyema recurring and the lung collapsing. She was eventually taken for VATS procedure and a pleurodesis. Chest tube was slowly able to be removed even though she had some residual of a loculated pneumothorax and some residual fluid. It was felt that she was stable enough on the to go home and we will follow her as an outpatient. FINAL DIAGNOSES: 1. Sepsis. 2. Right lower lobe pneumonitis. 3. Right lower lobe mass. 4. Right pleural effusion. 5. Right-sided empyema. 6. Possible liver lesion. 7. Anemia. 8. Dehydration. OPERATIONS: Place a VATS procedure and placement of a chest tube. MMODL / IJN: [id number] /
[2024-12-12] MEDS: HYDROmorphone 0.5 MG/0.5 ML SYRINGE IVP STA (16:08)
--- NOTE | 2024-12-12 16:35 | P.CNOR ---
History of Present Illness - [facility] Consult date: 12/12/24 History of present illness: The patient is a very pleasant right hand dominant 69-year-old female with multiple medical problems who is presently admitted to internal medicine with respiratory issues and empyema. She was getting ready for discharge yesterday when she slipped and fell injuring her left wrist. She denies any other injur ies at that time. X-rays showed a dorsally displaced distal radius and ulnar styloid fracture. The patient has had several fragility fractures in the past including a hip fracture and ankle and foot fractures. At the time of my evaluation she is complaining of isolated pain in her left wrist. Past Medical History Additional Past Medical History / Comment(s): hx ulcer, Raynauds, osteoporosis History of Any Multi-Drug Resistant Organisms: None Reported Past Surgical History: Orthopedic Surgery Additional Past Surgical History / Comment(s): cataract surgery, surgery for ulcer, left hip sx Past Anesthesia/Blood Transfusion Reactions: No Reported Reaction Past Psychological History: No Psychological Hx Reported Smoking Status: Former smoker Past Alcohol Use History: None Reported Past Drug Use History: None Reported - Past Family History Mother Family Medical History: Myocardial Infarction ([place]) Additional Family Medical History / Comment(s): from myocardial infarction Father Additional Family Medical History / Comment(s): Unsure what father from, thinks he had something to do with his throat Medications and Allergies Allergies Allergy/AdvReac Type Severity Reaction Status Date / Time No Known Allergies Allergy Verified 11/24/24 07:13 Physical Examination Patient is resting comfortably in bed. She is alert and can answer questions. Both lower extremities were without deformity and not painful. Right upper extremity was without deformity and was nontender. A focused exam of the left upper extremity was conducted. There was an obvious deformity of the left wrist. There was no open wound. The left shoulder and elbow are nontender. There is exquisite tenderness diffusely over the wrist. Her arm and forearm are soft. Motor and sensory function were intact throughout the left wrist and hand. Results X-rays of the left wrist show a dorsally displaced distal metaphyseal radius fracture and minimally displaced ulnar styloid fracture. - Labs Labs: H & H 11/06/24 11/08/24 11/09/24 Range/Units 20:53 09:15 03:42 Hgb 13.4 11.2 L 11.5 L (12.0-15.0) g/dL Hct 36.9 L 32.4 L 35.3 L (37.2-46.3) % 11/12/24 11/14/24 11/17/24 Range/Units 06:05 05:47 06:00 Hgb 10.3 L 10.6 L 10.5 L (12.0-15.0) g/dL Hct 28.7 L 31.4 L 30.8 L (37.2-46.3) % 11/18/24 11/19/24 11/20/24 Range/Units 12:34 09:35 06:36 Hgb 10.8 L 10.8 L 9.8 L (12.0-15.0) g/dL Hct 31.0 L 32.2 L 29.3 L (37.2-46.3) % 11/24/24 11/25/24 11/27/24 Range/Units 06:41 08:09 06:39 Hgb 8.9 L 9.6 L 9.5 L (12.0-15.0) g/dL Hct 26.0 L 28.6 L 27.7 L (37.2-46.3) % 11/30/24 12/01/24 12/02/24 Range/Units 09:17 11:13 08:04 Hgb 9.1 L 8.7 L 8.9 L (12.0-15.0) g/dL Hct 27.0 L 25.8 L 26.8 L (37.2-46.3) % 12/03/24 12/04/24 12/05/24 Range/Units 06:50 04:08 07:54 Hgb 9.1 L 8.8 L 9.1 L (12.0-15.0) g/dL Hct 27.7 L 27.2 L 28.1 L (37.2-46.3) % 12/07/24 Range/Units 06:07 Hgb 9.0 L (12.0-15.0) g/dL Hct 28.5 L (37.2-46.3) % Coagulation 11/07/24 Range/Units 10:22 INR 1.1 (<1.2) Result Diagrams: 12/07/24 06:07 12/07/24 06:07 Assessment and Plan Assessment: Closed left distal radius and ulnar styloid fracture status post ground-level fall Plan: A hematoma block, closed reduction, and splint application was performed today at bedside. A sling was ordered. The patient is to remain nonweightbearing on her left upper extremity with a sling on at all times except for hygiene. The splint should remain on until she follows up in our office. She should follow- up in our office in 1 week for repeat x-rays with her hand and wrist specialist Dr. Worthy. She is okay to discharge from orthopedic standpoint Time with Patient: Greater than 30
--- NOTE | 2024-12-12 16:39 | P.PN ---
Subjective Progress Note Date: 12/12/24 Principal diagnosis: Reason for follow-up is pneumonia/empyema Patient is a 69-year-old female with a past medical history significant for ulcer Raynaud's phenomena and osteoporosis presenting to the hospital for evaluation of right-sided chest pain and cough, patient be diagnosed with right-sided effusion history of empyema and pneumonia prompted this consultation.Patient is status post right thoracoscopy with decortication for right-sided empyema no OR culture procedure completed on 11/24/2024 Patient is status post installation of tunneled cath of the right pleural space for persistent air leak on 11/29/2024, chest tube was discontinued on 12/09/2024 On today's evaluation that is 12/12/2024, Patient is afebrile this morning patient denies having any chest pain shortness of breath or cough, the patient is currently on room air, patient denies any abdominal pain no diarrhea no nausea no vomiting patient did have a fall and has developed injury to the left wrist with evidence of displaced distal radius and ulna fracture. EXTR Objective - Vital Signs Vital signs: Vital Signs Temp 98 F 12/12/24 12:19 Pulse 80 12/12/24 16:29 Resp 18 12/12/24 12:19 BP 102/67 12/12/24 12:19 Pulse Ox 93 L 12/12/24 12:19 FiO2 21 12/07/24 08:44 Intake & Output 12/11/24 12/12/24 12/12/24 18:59 06:59 18:59 Intake Total 818 240 Output Total 400 400 Balance 418 -400 240 Weight 52 kg Intake: Oral 818 240 Output: Urine 400 Urine/Stool Mix 400 Other: Voiding Method Toilet Toilet # Voids 1 # Bowel Movements 1 - Exam GENERAL DESCRIPTION: An elderly female up in the chair in no distress RESPIRATORY SYSTEM: Unlabored breathing , decreased breath sounds at bases HEART: S1 S2 regular rate and rhythm , ABDOMEN: Soft , no tenderness EXTREMITIES: Trace edema feet - Labs CBC & Chem 7: 12/07/24 06:07 12/07/24 06:07 Assessment and Plan (1) Sepsis Current Visit: Yes Status: Acute Code(s): A41.9 - SEPSIS, UNSPECIFIED ORGANISM SNOMED Code(s): 61644331 (2) Empyema lung Current Visit: Yes Status: Acute Code(s): J86.9 - PYOTHORAX WITHOUT FISTULA SNOMED Code(s): 00431645 (3) Pneumonia Current Visit: Yes Status: Acute Code(s): J18.9 - PNEUMONIA, UNSPECIFIED ORGANISM SNOMED Code(s): 703237428 Plan: 1patient presented to hospital with sepsis in this patient who did have tachypnea and tachycardia elevated white count as well as elevated lactic acid meeting criteria for SIRS/sepsis source is right-sided pneumonia with a question of postobstructive and a possible component of empyema likely community-acquired pathogen in this patient with no history of recent antibiotic exposure or flulike symptoms 2-patient pleural fluid culture currently growing Streptococcus intermedius micro lab unable to do sensitivity as reported organism not growing 3patient did have repeat CT of the chest on 11/20/2024 concerning for persistent effusion and consolidation, the patient status post right-sided thoracoscopy and decortication completed on 11/24/2024 no OR culture 4patient is afebrile and white count has normalized, patient did have removal of the chest tube 12/09/[address] surgery 5patient has received adequate IV Rocephin which has been switched over to oral consider short course of oral Ceftin and Flagyl on discharge Dictation was produced using [employer] dictation software. please excuse any grammatical, word or spelling errors. Time with Patient: Less than 30
--- NOTE | 2024-12-12 16:41 | P.PCN ---
Date of Procedure: 12/12/24 Preoperative Diagnosis: Left distal radius and ulna fracture Postoperative Diagnosis: Same Procedure(s) Performed: 1. Closed reduction left distal radius fracture and application of long-arm splint 2. Hematoma block left distal radius fracture Surgeon: Bud Dunn Indications for Procedure: Very pleasant [id number] 69-year-old female multiple medical problems yesterday in the hospital injuring her left wrist. X-rays showed a displaced distal radius and ulnar styloid fracture. I recommended a hematoma block, closed reduction and sugar tong splint application. We discussed the risks and potential complications. The patient voiced her understanding of this and gave her consent to go forward with this. Description of Procedure: After verbal consent was obtained a hematoma block was performed of the left distal radius. The skin over the dorsal aspect of the distal radius was prepped first with alcohol and then ChloraPrep. Using sterile technique an 18-gauge needle was carefully inserted into the fracture hematoma and 10 mL of 2% lidocaine without epinephrine was injected. The needle was withdrawn. This was allowed to set. Half a milligram of Dilaudid was given by nursing via the patient's IV. A gentle closed reduction of the wrist was then performed by first recreating the fracture, then pulling longitudinal traction and finally applying a volar force to the wrist. A well-padded sugar-tong splint was then applied with a 3 point mold. This was allowed to set. After the procedure the patient was well. Her fingers were warm and well-perfused. She was able to move her fingers without difficulty.
--- NOTE | 2024-12-12 17:04 | XR ---
EXAMINATION TYPE: XR wrist limited LT DATE OF EXAM: 12/12/2024 4:58 PM COMPARISON: Wrist radiographs 12/11/2004. CLINICAL INDICATION: Female, 69 years old with history of post reduction; PHH, pain TECHNIQUE: XR wrist limited LT; examined in the Frontal, navicular, lateral, and oblique. FINDINGS: Comminuted mildly displaced fracture of the distal radial metadiaphysis with improved align ment status post reduction of the fracture components. Likely nondisplaced ulnar fracture also noted. Osseous structures are limited in evaluation due to overlying cast. Carpal alignment appears grossly maintained. Osseous structures are demineralized. IMPRESSION: Improved alignment of comminuted distal radius fracture status post reduction. [facility], , 12/12/2024 5:01 PM
--- NOTE | 2024-12-12 21:30 | P.PN ---
Subjective Progress Note Date: 12/12/24 On 12/11/2024, the patient is being seen for a follow-up. The patient is currently on room air oxygen. She is postop the #17 following a right thoracoscopy and decortication and single level intercostal nerve block. The patient also had self sclerae infused into the right hemithorax of the chest tube. Repeat chest x-ray shows a loculated stable right-sided hydropneumothorax. The patient however is quite stable. No significant respiratory distress. No chest pain. No pleurisy. No hemoptysis. No recent labs are available from today. She remains on IV Rocephin and she is also on IV Lasix 20 mg IV push every 12 hours. She is on DuoNeb nebulizer treatments [id number] and she is utilizing her incentive spirometer. She is pulling approximately 1.2 L in incentive spirometer. No other significant issues over the past 24 hours. On 12/12/2024, the patient is being seen for a follow-up. Patient is stable in terms of her breathing and the patient remains on room air oxygen. In fact the patient was supposed to get discharged yesterday and the patient was getting ready for discharge, the patient fell as she slipped and she injured her left wrist. X-ray showed a dorsally displaced distal radial and ulnar styloid fracture. Based on that, the patient is to be seen by orthopedic surgery for possible close reduction of the left distal radial fracture. The patient otherwise has no other complaints. She is complaining of pain and some swelling in her left upper extremity. No other new complaints otherwise for now. She remains on DuoNeb nebulizer treatments [id number]. She is on oral Omnicef 300 mg p.o. twice daily and Flagyl 500 mg p.o. 3 times daily.. She is also on Lasix 20 mg IV every 12 hours. Objective - Vital Signs Vital signs: Vital Signs Temp 97.8 F 12/12/24 08:30 Pulse 90 12/12/24 08:30 Resp 18 12/12/24 08:30 BP 101/64 12/12/24 08:30 Pulse Ox 93 L 12/12/24 08:30 FiO2 21 12/07/24 08:44 Intake & Output 12/11/24 12/12/24 12/12/24 18:59 06:59 18:59 Intake Total 818 120 Output Total 400 400 Balance 418 -400 120 Weight 52 kg Intake: Oral 818 120 Output: Urine 400 Urine/Stool Mix 400 Other: Voiding Method Toilet Toilet # Voids 1 # Bowel Movements 1 - Exam CONSTITUTIONAL: Appears comfortable, cooperative, no acute distress, currently on room air oxygen RESPIRATORY: Lungs sounds diminished in the right base. Surgical wound site is dry clean and intact in the right-sided chest tube has been removed CARDIOVASCULAR: S1, S2 present. Regular rate and rhythm. Palpable peripheral pulses bilaterally. Bilateral lower extremity edema present. No calf pain or tenderness noted. SCDs present. GASTROINTESTINAL: Abdomen soft, nontender, nondistended. Active bowel sounds present 4 quadrants. Tolerating diet. Positive bowel movement GENITOURINARY: Continues to void INTEGUMENTARY: Skin is warm and dry with evidence of good perfusion NEUROLOGIC: Cranial nerves II through XII intact MUSKULOSKELETAL: Able to move all extremities, strength equal bilaterally PSYCHIATRIC: Alert and oriented to person place and time Extremities reveal +1 swelling and edema lower extremities bilaterally and the patient has swelling and pain and tenderness and limited range of motion in the left wrist. - Labs CBC & Chem 7: 12/07/24 06:07 12/07/24 06:07 Assessment and Plan Plan: Complicated right sided pleural effusion/exudate, fluid positive for Streptococcus intermedius.The patient had initial pigtail catheter inserted with alteplase infusion into the right hemithorax with suboptimal response. Ultimately the patient required a thoracoscopy and decortication of the right lung and the patient is postop day # 18. Right-sided chest tube has been removed and the patient continues to have a stable right-sided hydropneumothorax. The patient also had a follow-up pleurodesis of the right hemithorax. The right-sided chest tube was removed on 12/09/2024. Chest x-ray findings are stable. Oxygenation is stable and the patient is currently on room air oxygen Acute hypoxic respiratory failure, improved and the patient currently on room air oxygen. Acute leukocytosis, secondary to right pleural space infection. Acute Left distal radius and ulna fracture, awaiting orthopedic surgery evaluation Anemia of chronic disease Plan Continue supportive care Aggressive pulmonary toileting and utilize incentive spirometer DuoNeb neb treatments [id number] Continue oral Omnicef and Flagyl Heparin subcu for DVT prophylaxis IV Lasix Orthopedic surgery evaluation and consultation regarding the fracture, possible need for closed reduction Will continue to follow.
--- NOTE | 2024-12-13 03:50 | PN ---
PROGRESS NOTE CHIEF COMPLAINT: Right-sided empyema. HISTORY OF PRESENT ILLNESS: This lady was doing well and was to be discharged when she fell and injured her wrist. Discharge was canceled. PHYSICAL EXAMINATION: GENERAL: She has a classic dinner fork deformity of the left wrist. CHEST: Quite clear. CARDIAC: Normal. IMPRESSION: 1. Right-sided empyema-resolved. 2. Fracture of the left wrist. PLAN: Orthopedic consult prior to discharge and then reconsider whether she will be able to go home or not. MMODL / IJN: [id number] /
[2024-12-13 12:33] VITALS: BP 99/65; PULSE 83; RESP 16; TEMP 97.9
--- NOTE | 2024-12-13 15:40 | P.PN ---
Subjective Progress Note Date: 12/13/24 No acute events overnight per patient. Patient states her pain has improved in her left wrist since closed reduction and splinting. Objective - Vital Signs Vital signs: Vital Signs Temp 97.9 F 12/13/24 11:35 Pulse 83 12/13/24 11:35 Resp 16 12/13/24 11:35 BP 99/65 12/13/24 11:35 Pulse Ox 92 L 12/13/24 11:35 FiO2 21 12/07/24 08:44 Intake & Output 12/12/24 12/13/24 12/13/24 18:59 06:59 18:59 Intake Total 540 240 Balance 540 240 Weight 51.9 kg Intake: Oral 540 240 Other: Voiding Method Toilet Toilet # Voids 1 # Bowel Movements 1 1 - Exam Patient is sitting up in chair. No acute distress. Patient's left sugar-tong splint is intact, Yohan bandage is intact. Median, radial, ulnar, and anterior osseous nerve function all roughly intact. Sensation to all 5 digits of the left hand intact. Capillary refill is under 2 seconds in all 5 digits. - Labs CBC & Chem 7: 12/07/24 06:07 12/07/24 06:07 Assessment and Plan Assessment: Closed left distal radius and ulnar styloid fracture status post ground-level fall 12/12/2024 status post closed reduction left distal radius fracture and application of long-arm splint performed by Dr. Dunn. Plan: The patient is to remain nonweightbearing on her left upper extremity with a sling on at all times except for hygiene. Platform for walker has been ordered and signed. The splint should remain on until she follows up in our office. She should follow-up in our office in 1 week for repeat x-rays with her hand and wrist specialist Dr. Worthy. She is okay to discharge from orthopedic standpoint.
--- NOTE | 2024-12-13 17:59 | DS ---
DISCHARGE SUMMARY ADDENDUM: The patient's discharge was set up several days ago and when she was getting ready to leave the hospital, she fell and fractured her left wrist. This was addressed by Orthopedic surgery and she is now prepared to go home. There was a possibility that she might need to be placed into rehab, but she wants to go home and she will be set up with visiting nurses and home physical therapy. Final diagnoses are the same with the addition of fracture of left wrist. MMKONRADL / IJN: [id number] /
--- NOTE | 2024-12-13 20:31 | P.PN ---
Subjective Progress Note Date: 12/13/24 On 12/11/2024, the patient is being seen for a follow-up. The patient is currently on room air oxygen. She is postop the #17 following a right thoracoscopy and decortication and single level intercostal nerve block. The patient also had self sclerae infused into the right hemithorax of the chest tube. Repeat chest x-ray shows a loculated stable right-sided hydropneumothorax. The patient however is quite stable. No significant respiratory distress. No chest pain. No pleurisy. No hemoptysis. No recent labs are available from today. She remains on IV Rocephin and she is also on IV Lasix 20 mg IV push every 12 hours. She is on DuoNeb nebulizer treatments [id number] and she is utilizing her incentive spirometer. She is pulling approximately 1.2 L in incentive spirometer. No other significant issues over the past 24 hours. On 12/12/2024, the patient is being seen for a follow-up. Patient is stable in terms of her breathing and the patient remains on room air oxygen. In fact the patient was supposed to get discharged yesterday and the patient was getting ready for discharge, the patient fell as she slipped and she injured her left wrist. X-ray showed a dorsally displaced distal radial and ulnar styloid fracture. Based on that, the patient is to be seen by orthopedic surgery for possible close reduction of the left distal radial fracture. The patient otherwise has no other complaints. She is complaining of pain and some swelling in her left upper extremity. No other new complaints otherwise for now. She remains on DuoNeb nebulizer treatments [id number]. She is on oral Omnicef 300 mg p.o. twice daily and Flagyl 500 mg p.o. 3 times daily.. She is also on Lasix 20 mg IV every 12 hours. 12/13/2024, the patient is post closed reduction of a left forearm fracture and the patient has a splint in place. The patient had a closed left distal radial and ulnar styloid fracture following a ground-level fall. No significant pain. No major respiratory difficulties. The patient is being seen by orthopedic surgery. She is ambulating. She continues to have some edema lower extremities bilaterally. She is still on IV Lasix. No chest pain. No pleurisy. No hemoptysis. The patient is being considered for discharge on oral antibiotics. Objective - Vital Signs Vital signs: Vital Signs Temp 97.9 F 12/13/24 11:35 Pulse 83 12/13/24 11:35 Resp 16 12/13/24 11:35 BP 99/65 12/13/24 11:35 Pulse Ox 92 L 12/13/24 11:35 FiO2 21 12/07/24 08:44 Intake & Output 12/12/24 12/13/24 12/13/24 18:59 06:59 18:59 Intake Total 540 240 Balance 540 240 Weight 51.9 kg Intake: Oral 540 240 Other: Voiding Method Toilet Toilet # Voids 1 # Bowel Movements 1 1 - Exam CONSTITUTIONAL: Appears comfortable, cooperative, no acute distress, currently on room air oxygen RESPIRATORY: Lungs sounds diminished in the right base. Surgical wound site is dry clean and intact in the right-sided chest tube has been removed CARDIOVASCULAR: S1, S2 present. Regular rate and rhythm. Palpable peripheral pulses bilaterally. Bilateral lower extremity edema present. No calf pain or tenderness noted. SCDs present. GASTROINTESTINAL: Abdomen soft, nontender, nondistended. Active bowel sounds present 4 quadrants. Tolerating diet. Positive bowel movement GENITOURINARY: Continues to void INTEGUMENTARY: Skin is warm and dry with evidence of good perfusion NEUROLOGIC: Cranial nerves II through XII intact MUSKULOSKELETAL: Able to move all extremities, strength equal bilaterally PSYCHIATRIC: Alert and oriented to person place and time Extremities reveal +1 swelling and edema lower extremities bilaterally and the patient has swelling and pain and tenderness and limited range of motion in the left wrist. The patient is post closed reduction and the patient has a splint in the left upper extremity. - Labs CBC & Chem 7: 12/07/24 06:07 12/07/24 06:07 Assessment and Plan Plan: Complicated right sided pleural effusion/exudate, fluid positive for Streptococcus intermedius.The patient had initial pigtail catheter inserted with alteplase infusion into the right hemithorax with suboptimal response. Ultimately the patient required a thoracoscopy and decortication of the right lung and the patient is postop day # 19. Right-sided chest tube has been removed and the patient continues to have a stable right-sided hydropneumothorax. The patient also had a follow-up pleurodesis of the right hemithorax. The right-sided chest tube was removed on 12/09/2024. Chest x-ray findings are stable. Oxygenation is stable and the patient is currently on room air oxygen Acute hypoxic respiratory failure, improved and the patient currently on room air oxygen. Acute leukocytosis, secondary to right pleural space infection. Acute Left distal radius and ulna fracture, post closed reduction and the patient has a splint in place, there is no active pain at this point. Anemia of chronic disease Plan Continue supportive care Aggressive pulmonary toileting and utilize incentive spirometer DuoNeb neb treatments [id number] The patient will complete a course of oral antibiotics on outpatient basis Heparin subcu for DVT prophylaxis Limited edema lower extremities Orthopedic surgery evaluation and and follow-up on outpatient basis post closed reduction and splinting of the left distal radial and ulnar styloid fracture Will continue to follow the patient on outpatient basis.
--- NOTE | 2024-12-15 16:28 | P.PN ---
Subjective Progress Note Date: 12/13/24 Principal diagnosis: Reason for follow-up is pneumonia/empyema Patient is a 69-year-old female with a past medical history significant for ulcer Raynaud's phenomena and osteoporosis presenting to the hospital for evaluation of right-sided chest pain and cough, patient be diagnosed with right-sided effusion history of empyema and pneumonia prompted this consultation.Patient is status post right thoracoscopy with decortication for right-sided empyema no OR culture procedure completed on 11/24/2024 Patient is status post installation of tunneled cath of the right pleural space for persistent air leak on 11/29/2024, chest tube was discontinued on 12/09/2024 On today's evaluation that is 12/13/2024,the patient denies any fever or any chills, patient is breathing comfortably on room air, the patient denies chest pain shortness of breath and no significant cough, patient denies abdominal pain, no nausea vomiting or diarrhea. Patient did not have any lab draw today Objective - Vital Signs Vital signs: Vital Signs Temp 97.9 F 12/13/24 11:35 Pulse 83 12/13/24 11:35 Resp 16 12/13/24 11:35 BP 99/65 12/13/24 11:35 Pulse Ox 92 L 12/13/24 11:35 FiO2 21 12/07/24 08:44 Intake & Output 12/12/24 12/13/24 12/13/24 18:59 06:59 18:59 Intake Total 540 240 Balance 540 240 Weight 51.9 kg Intake: Oral 540 240 Other: Voiding Method Toilet Toilet # Voids 1 # Bowel Movements 1 1 - Exam GENERAL DESCRIPTION: An elderly female up in the chair in no distress RESPIRATORY SYSTEM: Unlabored breathing , decreased breath sounds at bases HEART: S1 S2 regular rate and rhythm , ABDOMEN: Soft , no tenderness EXTREMITIES: Trace edema feet - Labs CBC & Chem 7: 12/07/24 06:07 12/07/24 06:07 Assessment and Plan (1) Sepsis Status: Acute Code(s): A41.9 - SEPSIS, UNSPECIFIED ORGANISM SNOMED Code(s): 92989749 (2) Empyema lung Status: Acute Code(s): J86.9 - PYOTHORAX WITHOUT FISTULA SNOMED Code(s): 06817591 (3) Pneumonia Status: Acute Code(s): J18.9 - PNEUMONIA, UNSPECIFIED ORGANISM SNOMED Code(s): 363535556 Plan: 1patient presented to hospital with sepsis in this patient who did have tachypnea and tachycardia elevated white count as well as elevated lactic acid meeting criteria for SIRS/sepsis source is right-sided pneumonia with a question of postobstructive and a possible component of empyema likely community-acquired pathogen in this patient with no history of recent antibiotic exposure or flulike symptoms 2-patient pleural fluid culture currently growing Streptococcus intermedius micro lab unable to do sensitivity as reported organism not growing 3patient did have repeat CT of the chest on 11/20/2024 concerning for persistent effusion and consolidation, the patient status post right-sided thoracoscopy and decortication completed on 11/24/2024 no OR culture 4patient is afebrile and white count has normalized, patient did have removal of the chest tube 12/09/[address] surgery 5patient has received adequate IV Rocephin which has been switched over to oral antibiotic therapy consider short course of oral Ceftin and Flagyl on discharge and close outpatient follow-up Dictation was produced using [employer] dictation software. please excuse any grammatical, word or spelling errors. Time with Patient: Less than 30
--- NOTE | 2024-12-18 18:14 | CDI ---
Date: 12/18/2024 From: Loulou [email or web address] Email: [email or web address] Admit Date: 11/07/2024 12:26:00 AM Patient Name: Lyubov Hanna Visit Number: [id number] Discharge Date: 12/13/2024 04:42:00 PM ATTENTION: The Clinical Documentation Specialists (CDI) and [facility] Coding Staff appreciate your assistance in clarifying documentation. Please respond to the clarification below the line at the bottom and electronically sign. The CDI & [facility] Coding staff will review the response and follow-up if needed. Please note: Queries are made part of the Legal Health Record. If you have any questions, please contact the author of this message via ITS. Dr. Francisco Neal, a small breach of the pleura is documented in your Operative Report (11/24/2024) and persistent air leak is documented in the Operative Report (11/29/2024). Additional clarification regarding the visceral pleura breach and persistent air leak is requested. History/Risk Factors: 69-year-old female presented to [facility] ED for evaluation due to right-upper quadrant abdominal pain with radiation to her back. PMH: Former tobacco use, rheumatoid arthritis, Raynauds phenomenon, osteoporosis Operative Report (11/24/2024): o Pre/Post-Operative Diagnosis: Right-sided empyema o Procedure Performed: Right thoracoscopy with decortication. Single level intercostal nerve block Clinical indicators: Documentation Location: Electronic Medical Record CTA Chest (11/06/2024): Airspace consolidation at the right lung base measures approximately 5.4 x 5.8 cm, concerning forlung cancer. Surrounding airspace consolidation, concerning forpneumonia. Large rightpleural effusion. US Guided Chest Tube Insertion (11/06/2024): Successful 8 [place]ian tube placement within the right pleural space which was left in place CT Chest (11/20/2024): Persistent and slightly more prominent moderate-sized right basilar non-simple pleural fluid collection despite pleural pigtail drainage catheter placement. More prominent associated right basilar consolidation/atelectasis. Consider surgical debridement/treatment. Chest X-Ray (11/22/2024): Right basilar pleural pigtail drainage catheter with stable in size moderate-sized right-sided hydropneumothorax and associated right basilar opacity favoring compressive atelectasis. Stable small to tiny size left pleural effusion. Background chronic parenchymal change. Chest X-Ray (11/24/2024): Interval removal of right-sided pleural pigtail drain catheter. Moderate to large size right-sided hydropneumothorax more prominent after right apical chest tube placement. New adjacent right-sided lateral subcutaneous emphysema is noted. Persistent right medial basilar opacity. Stable small left pleural effusion. Cardiothoracic Surgery Progress Note (11/17/2024): Patient received fifth dose of lytics yesterday, continues to have significant infectious looking fluid removal into her pigtail catheter, total 750 mL out in the last 24 hours. Patient appears to be doing well, remains on IV antibiotics per infectious disease Operative Report (11/24/2024): o We then used a [place] clamp to bluntly take down the adhesions at the chest wall we carefully exposed the unaffected pleura and freed up the entire upper and middle lobe with only a small breach of the pleura posteriorly and medially. We then freed up the adhesions at the edge of the diaphragm exposing the insertion from spine all the way around to the mediastinum in the front. We are then able to place a 20 [place]ian chest tube anteriorly and fixated in place with a 0 Ethibond suture. Brought the lung up under direct vision of the scope and found that the cavity collapsed nicely but the patient did have an air leak in lateral position secondary to the small breach in the posterior medial visceral pleura Operative Report (11/29/2024): o 69-year-old female status-post thoracoscopy with persistent space and persistent air leak o Procedure(s) Performed: Instillation of talc into right pleural space Pulmonology Progress Note (12/13/2024): Complicated right sided pleural effusion/exudate, fluid positive for Streptococcus intermedius. The patient had initial pigtail catheter inserted with Alteplase infusion into the right hemithorax with suboptimal response. Ultimately the patient required a thoracoscopy and decortication of the right lung and the patient is postop day # 19. Right-sided chest tube has been removed and the patient continues to have a stable right-sided hydropneumothorax. The patient also had a follow-up pleurodesis of the right hemithorax. The right-sided chest tube was removed on 12/09/2024. Chest x-ray findings are stable. Oxygenation is stable and the patient is currently on room air oxygen Treatment: Right Lung Thoracoscopy with Decortication Lytic Therapy Right Hemithorax Pleurodesis (Talc Instillation) Right-Sided Pigtail Drain Catheter Insertion Right-Sided Chest Tube Insertion Pulmonology Consultation Cardiothoracic Surgery Consultation Supplemental Oxygen Please clarify if visceral pleura breech and/or persistent air leak are complications related to the surgical procedure(s)? [ ] No. The visceral pleura breech and persistent air leak are related to the disease process itself and not a complication of the surgical procedure(s). [ x] Yes. The visceral pleura breech and persistent air leak are both complications related to the surgical procedure(s). [ ] Other, please specify [ ] Unable to determine MTDD
== END 2024-12-13 16:42 | disposition home or self-care (01) | DRG 853 ==
LOC: EC 19:23 → 3SCARD 11-07 00:26 → 5NMEDONC 11-07 09:09 → 3SCARD 11-09 12:13
PROVIDERS: ADMIT Family Medicine; ATTEND Family Medicine
PROC: 0W993ZZ Drainage of Right Pleural Cavity, Percutaneous Approach (ICD-10-PCS; principal; 2024-11-07)
PROC: 0BNC4ZZ Release Right Upper Lung Lobe, Percutaneous Endoscopic Approach (ICD-10-PCS; 2024-11-24)
PROC: 0BND4ZZ Release Right Middle Lung Lobe, Percutaneous Endoscopic Approach (ICD-10-PCS; 2024-11-24)
PROC: 0W9940Z Drainage of Right Pleural Cavity with Drainage Device, Percutaneous Endoscopic Approach (ICD-10-PCS; 2024-11-24)
PROC: 3E0T3BZ Introduction of Anesthetic Agent into Peripheral Nerves and Plexi, Percutaneous Approach (ICD-10-PCS; 2024-11-24)
PROC: 3E0L3GC Introduction of Other Therapeutic Substance into Pleural Cavity, Percutaneous Approach (ICD-10-PCS; 2024-11-29)
PROC: 0PSLXZZ Reposition Left Ulna, External Approach (ICD-10-PCS; 2024-12-12)
PROC: 3E0T3BZ Introduction of Anesthetic Agent into Peripheral Nerves and Plexi, Percutaneous Approach (ICD-10-PCS; 2024-12-12)
DX: A40.8 Other streptococcal sepsis (principal); J15.4 Pneumonia due to other streptococci; S52.612A Displaced fracture of left ulna styloid process, initial encounter for closed fracture; S52.512A Displaced fracture of left radial styloid process, initial encounter for closed fracture; J86.9 Pyothorax without fistula; J96.01 Acute respiratory failure with hypoxia; J94.2 Hemothorax; J91.8 Pleural effusion in other conditions classified elsewhere; R65.20 Severe sepsis without septic shock; J94.8 Other specified pleural conditions; J43.2 Centrilobular emphysema; M06.9 Rheumatoid arthritis, unspecified; D64.9 Anemia, unspecified; K76.0 Fatty (change of) liver, not elsewhere classified; J95.812 Postprocedural air leak; E87.1 Hypo-osmolality and hyponatremia; J95.71 Accidental puncture and laceration of a respiratory system organ or structure during a respiratory system procedure; R16.0 Hepatomegaly, not elsewhere classified; K66.0 Peritoneal adhesions (postprocedural) (postinfection); J98.4 Other disorders of lung; R91.8 Other nonspecific abnormal finding of lung field; D75.839 Thrombocytosis, unspecified; D72.823 Leukemoid reaction; E86.0 Dehydration; E86.1 Hypovolemia; Z79.82 Long term (current) use of aspirin; Y92.239 Unspecified place in hospital as the place of occurrence of the external cause; W01.0XXA Fall on same level from slipping, tripping and stumbling without subsequent striking against object, initial encounter; Z79.899 Other long term (current) drug therapy; Z87.11 Personal history of peptic ulcer disease; Z87.891 Personal history of nicotine dependence
CPT/HCPCS: 32551; 36410; 36415; 64468; 71045; 71046; 71250; 71260; 71275; 74177; 76604; 76937; 76942; 80048; 80053; 80202; 82150; 82565; 82945; 83605; 83615; 83690; 83735; 83880; 84145; 84157; 84484; 85025; 85027; 85610; 86140; 86850; 86860; 86870; 86880; 86900; 86901; 86902; 86905; 87040; 87070; 87102; 87116; 87205; 87206; 87636; 88108; 88305; 88341; 88342; 89050; 93005; 93970; 94640; 94760; 96361; 96365; 96366; 96367; 96375; 99291